=== PATIENT | female | born 1970 | race African-American/Black ===

== ENCOUNTER 2023-03-08 06:22 | Emergency (ER) | payer MEDICAID, SELFPAY ==
[2023-03-08 06:27] VITALS: BP 144/98; PULSE 84; RESP 20; TEMP 36.8; O2SAT 98
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
[2023-03-08] MEDS: KETOROLAC 30 MG/ML VIAL (*BKC) 15 MG IM (07:44)
== END 2023-03-08 08:37 | disposition home or self-care (01) ==
PROVIDERS: Emergency Provider Emergency Medicine
DX: M19.90 Unspecified osteoarthritis, unspecified site (principal); F17.210 Nicotine dependence, cigarettes, uncomplicated; Z76.0 Encounter for issue of repeat prescription
CPT/HCPCS: 96372; 99283; J1885

== ENCOUNTER 2023-03-21 11:19 | Emergency (ER) | payer MEDICAID, SELFPAY ==
--- NOTE | ~2023-03-21 | XR_ITS ---
EXAMINATION: XR hip LT min 3V w AP pelvis DATE: 03/21/2023 13:11 INDICATION: Chronic left hip pain. TECHNIQUE: An anteroposterior view of the pelvis and 3 views of left hip were obtained. COMPARISON: None. FINDINGS: Bone alignment is normal. There is moderate lumbar spondylosis. No fracture. There is mild right hip osteoarthritis. There is advanced left hip osteoarthritis including bone volume loss of fem oral head. There are loose bodies in left hip joint. IMPRESSION: 1. Advanced left hip joint osteoarthritis with loose bodies. 2. Mild right hip osteoarthritis. Reviewed, dictated and finalized at location A. ER AGENT
[2023-03-21 11:23] VITALS: BP 127/76; PULSE 78; RESP 16; TEMP 36.4; O2SAT 99
--- NOTE | 2023-03-21 12:18 | ED.GENADULT ---
HPI - General Adult General Chief complaint: Unspecified Stated complaint: left leg pain Time Seen by Provider: 03/21/23 12:09 Source: patient and family History of Present Illness HPI narrative: 53 years old female came to the ED complaining of chronic hips pain mainly left side, bone on bone, Declined surgery in the past and would like to be hospitalized for hip replacement, ran out of [place] 10 mg t.i.d. p.r.n. and block scan 7.5 mg b.i.d., patient was seen by her family physician yesterday who declined to give her any pain medication. Patient was referred to pain management physician and psychiatrist and cannot follow with them because they are far away from her home. Patient would like to have a pain shot and refill for the [place]. Related Data Allergies Allergy/AdvReac Type Severity Reaction Status Date / Time meloxicam Allergy Mild Unknown Verified 03/08/23 07:30 Review of Systems Review of Systems: All systems reviewed & are unremarkable except as noted in HPI and below PMFSH Past Medical History Medical History Peripheral neuropathic pain Psychiatric diagnosis Family History Family History Other Peripheral neuropathic pain Exam Narrative: General appearance: Well-developed, well-nourished Skin: Normal color Head: Normocephalic, nontraumatic Eyes: Clear conjunctiva ENT: Oropharynx normal, ears normal, nose normal Neck: Supple, nontender Chest and respiratory: Airway patent, no respiratory distress, no accessory muscle use Heart: Regular rate/rhythm Abdomen: Soft, nontender, no organomegaly, quiet bowel sounds Vascular: Normal peripheral pulses, normal capillary refill. Musculoskeletal: severe limited range of motion of both hips mainly on the left side, no bruises, no deformity, no rash Neurologic: Alert and oriented ?3, SHERIFF OFFICER is normal as tested, no gross motor deficit Course Vital Signs Vital signs: Vital Signs Temperature 36.4 C L 03/21/23 11:23 Pulse Rate 78 03/21/23 11:23 Respiratory Rate 16 03/21/23 11:23 Blood Pressure 127/76 03/21/23 11:23 Pulse Oximetry 99 03/21/23 11:23 Oxygen Delivery Room Air 03/21/23 11:23 Temperature 36.4 C L 03/21/23 11:23 Pulse Rate 78 03/21/23 11:23 Respiratory Rate 16 03/21/23 11:23 Blood Pressure 127/76 03/21/23 11:23 Pulse Oximetry 99 03/21/23 11:23 Oxygen Delivery Room Air 03/21/23 11:23 Medical Decision Making Vital Signs Vital Signs: Vital Signs Temperature 36.4 C L 03/21/23 11:23 Pulse Rate 78 03/21/23 11:23 Respiratory Rate 16 03/21/23 11:23 Blood Pressure 127/76 03/21/23 11:23 Pulse Oximetry 99 03/21/23 11:23 Oxygen Delivery Room Air 03/21/23 11:23 Temperature 36.4 C L 03/21/23 11:23 Pulse Rate 78 03/21/23 11:23 Respiratory Rate 16 03/21/23 11:23 Blood Pressure 127/76 03/21/23 11:23 Pulse Oximetry 99 03/21/23 11:23 Oxygen Delivery Room Air 03/21/23 11:23 Imaging Data Radiologist's impression: Impressions Hip/Pelvis X-Ray 03/21/23 13:42 IMPRESSION: 1. Advanced left hip joint osteoarthritis with loose bodies. 2. Mild right hip osteoarthritis. Critical Care Time Critical Care Time Critical Care Time: No Discharge Plan Discharge Clinical Impression: Chronic hip pain Patient Disposition: Home, Self-Care Condition: Stable Instructions: Hip Pain (ED) Additional Instructions: Return if symptoms are worsening , call your family physician for appointment, take Tylenol as as needed for aches and pain, continue home med
[2023-03-21] MEDS: ONDANSETRON HCL ODT 4 MG TABLET 8 MG PO (13:13)
[2023-03-21] MEDS: HYDROmorphone HCL INJ (*CRX) 1 MG/ML SYR IM (13:14)
== END 2023-03-21 14:16 | disposition home or self-care (01) ==
PROVIDERS: Emergency Provider Emergency Medicine
DX: M25.552 Pain in left hip (principal); M25.551 Pain in right hip; G89.29 Other chronic pain; M16.0 Bilateral primary osteoarthritis of hip
CPT/HCPCS: 73502; 96372; 99283; A9270; J1170

== ENCOUNTER 2023-04-12 08:58 | Emergency (ER) | payer MEDICAID, SELFPAY ==
--- NOTE | ~2023-04-12 | XR_ITS ---
EXAMINATION: XR hip LT 2V w AP pelvis INDICATION: Left hip pain TECHNIQUE: AP view of the pelvis and two views of the left hip are obtained. COMPARISON: 03/21/2023 FINDINGS: No acute fracture is identified. Again noted is advanced left hip osteoarthritis with bone volume loss of the left femoral head. Loose bodies are again noted in the left hip joint. The right h ip demonstrates mild osteoarthritis. IMPRESSION: 1. Advanced osteoarthritis of the left hip without acute findings or significant interval change. Reviewed, dictated and finalized at location B. 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 Advanced osteoarthritis of the left hip without acute findings or significan t interval change.
[2023-04-12 09:05] VITALS: BP 104/60; PULSE 92; RESP 20; TEMP 36.4; O2SAT 97
--- NOTE | 2023-04-12 09:52 | ED.EXTPRO ---
HPI - Extremity Problem General Chief complaint: Extremity Problem,Nontraumatic Stated complaint: L HIP PAIN Time Seen by Provider: 04/12/23 09:21 Source: patient Mode of arrival: ambulatory Limitations: no limitations History of Present Illness HPI Narrative: This is a 53-year-old female that presents to the emergency department for left hip pain ongoing over the last day. Reports yesterday stepping out of a car and twisting the leg. Reports since she has had worsening left hip pain. Reports bad osteoarthritis in the hip and she has follow-up with Orthopedics for this in the next couple of weeks. She takes meloxicam. Denies fevers, erythema, edema, decreased range of motion, or numbness Related Data Allergies Allergy/AdvReac Type Severity Reaction Status Date / Time No Known Allergies Allergy Verified 04/12/23 09:44 Review of Systems Review of Systems: CONSTITUTIONAL: Denies fever SKIN: Denies rash MUSCULOSKELETAL: Reports joint pain, and myalgia. NEUROLOGIC: Denies numbness, or weakness. All systems reviewed & are unremarkable except as noted in HPI and below PMFSH Past Medical History Medical History Peripheral neuropathic pain Psychiatric diagnosis Family History Family History Other Peripheral neuropathic pain Social History Social History (System 04/03/23 @ 09:41 by Brandin Christiansen) Alcohol intake: never Exam Narrative: GENERAL: Well-appearing, well-nourished, and in no acute distress. HEAD: Normocephalic, atraumatic. EYES: EOMI. CHEST: Clear to auscultation. No respiratory distress. No wheezes rales or rhonchi HEART: Regular rate and rhythm. No murmur heard. Normal peripheral pulses. EXTREMITIES: Normal range of motion. No edema or obvious deformity. Normal DP pulse. Normal sensation SKIN: Warm, dry, no rash. NEURO: No focal deficits. Alert and oriented x3. PSYCH: Normal mood and affect Course Course Emergency Course: Patient updated on her workup and agrees with plan of care Vital Signs Vital signs: Vital Signs Temperature 97.5 F L 04/12/23 09:05 Pulse Rate 92 04/12/23 09:05 Respiratory Rate 20 04/12/23 09:05 Blood Pressure 104/60 04/12/23 09:05 Pulse Oximetry 97 04/12/23 09:05 Oxygen Delivery Room Air 04/12/23 09:05 Temperature 97.5 F L 04/12/23 09:05 Pulse Rate 92 04/12/23 09:05 Respiratory Rate 20 04/12/23 09:05 Blood Pressure 104/60 04/12/23 09:05 Pulse Oximetry 97 04/12/23 09:05 Oxygen Delivery Room Air 04/12/23 09:05 MDM - Extremity (Nontraumatic) MDM Narrative Medical decision making narrative: Patient presents emergency department for left hip pain after a twisting injury yesterday. Patient is neurovascularly intact. Left hip x-ray shows advanced osteoarthritis without acute findings. Patient updated on her workup. Instructed to continue her meloxicam, Tylenol as needed. Will be given muscle relaxer if needed for pain. She is to follow up with her orthopedic doctor at her scheduled appointment. She was given warnings to return to the ER Differential Diagnosis Differential diagnosis: Likely other (osteoarthritis, muscle spasm, muscle strain) Imaging Data Radiologist's impression: ITS Impressions Hip/Pelvis X-Ray 04/12/23 10:30 IMPRESSION: 1. Advanced osteoarthritis of the left hip without acute findings or significant interval change. Critical Care Time Critical Care Time Critical Care Time: No Discharge Plan Discharge Clinical Impression: Left hip pain Patient Disposition: Home, Self-Care Condition: Stable Instructions: Hip Pain (ED) Additional Instructions: Return to the ER if you experience weakness, numbness, bowel/bladder incontinence, or any other symptoms that are concerning to you Rest, use ice/heat, take Meloxicam or Tylenol as needed for pain as well as muscle r
[2023-04-12] MEDS: ACETAMINOPHEN 500 MG TABLET 1000 MG PO (10:09)
[2023-04-12] MEDS: diazePAM INJ (*CRX) 10 MG/2 ML SYRINGE 5 MG IM (10:09)
[2023-04-12 10:51] VITALS: BP 116/74; PULSE 76; RESP 18; O2SAT 99
== END 2023-04-12 11:07 | disposition home or self-care (01) ==
PROVIDERS: Emergency Provider Physician Assistant
DX: M25.552 Pain in left hip (principal); M16.12 Unilateral primary osteoarthritis, left hip
CPT/HCPCS: 73502; 96372; 99283; A9270; J3360

== ENCOUNTER 2023-06-15 11:28 | Outpatient (CLI) | payer OTHER, SELFPAY ==
--- NOTE | ~2023-06-15 | XR_ITS ---
Clinical Indication: Chest pain PA and lateral views of the chest: Comparison: None Findings: The lungs are clear, without evidence of focal consolidation or pleural effusion. Cardiome diastinal silhouette is within normal limits. Bones and soft tissues are unremarkable. Impression: Normal chest. Reviewed, dictated and finalized at location . Impression: Normal chest.
--- NOTE | 2023-06-15 12:12 | ECG_ITS ---
SEE SCANNED COPY FOR CONFIRMED REPORT MTDD
== END 2023-06-15 11:29 | disposition home or self-care (01) ==
LOC: ANHIMG 11:36
PROVIDERS: PCP Emergency Medicine; Visit Provider Emergency Medicine
DX: R00.2 Palpitations (principal); R07.9 Chest pain, unspecified
CPT/HCPCS: 71046; 93005

== ENCOUNTER 2023-08-03 15:49 | Outpatient (CLI) | payer OTHER, SELFPAY ==
--- NOTE | ~2023-08-03 | CT_ITS ---
EXAMINATION: CT hip LT wo con DATE: 08/03/2023 16:15 INDICATION: Unilateral primary osteoarthritis of the left hip TECHNIQUE: High resolution computed tomography (CT) of the left hip was performed without intravenous contrast. Additional sagittal and coronal reconstructions were performed. Automated exposure control and iterative reconstruction technique were employed. The dose-length product was 440.35 mGy-cm. COMPARISON: None FINDINGS: Severe osteoarthritis at the left hip severe joint space narrowing and remodeling of the cephalad asp ect of the femoral head and acetabulum. There is extensive subarticular sclerosis and cystic change a long both sides of the joint space. The remodeling results in mild cephalad and lateral migration of the femoral head within the enlarged acetabulum. Likely reactive small left hip joint effusion. No fr acture. Moderate osteoarthritis of the left sacroiliac joint. Visualized portion of the bladder, uter us and left adnexa are unremarkable. There are few sigmoid diverticula without adjacent inflammatory stranding to suggest diverticulitis. No pathologically enlarged left pelvic or inguinal lymphadenopat hy. IMPRESSION: 1. Severe left hip osteoarthritis. Reviewed, dictated and finalized at location A.
== END 2023-08-03 15:50 | disposition home or self-care (01) ==
LOC: ANHIMG 15:49
PROVIDERS: PCP Emergency Medicine; Visit Provider Orthopaedic Surgery
DX: M16.12 Unilateral primary osteoarthritis, left hip (principal)
CPT/HCPCS: 73700

== ENCOUNTER 2023-08-14 10:37 | Outpatient (CLI) | payer OTHER, SELFPAY ==
[2023-08-14 12:01] LABS: Appearance Urine Clear (Clear); Bacteria Urine 1+ /hpf; Bilirubin Urine Negative (Negative); Blood Urine 1+ (Negative); Color Urine Yellow (Yellow); Glucose Urine UA Negative (Negative); Ketones Urine Negative (Negative); Leukocyte Esterase Ur Negative LEU/UL (Negative); Nitrate Urine Negative (Negative); Non Pathogenic Casts 0-2; Protein Urine Trace mg/dL (Negative); RBC Urine 21-50 /hpf (0-2); Specific Grav Ur 1.019 (1.001-1.035); Squamous Epithelial Cell Urine Few /hpf (Few)
[2023-08-14 12:05] LABS: Urine Cotinine NEGATIVE
[2023-08-14 12:06] LABS: Add Urine Microscopic? YES
== END 2023-08-14 10:38 | disposition home or self-care (01) ==
LOC: ANHLAB 10:40
PROVIDERS: Nurse Practitioner Family; PCP Emergency Medicine; Visit Provider Orthopaedic Surgery
DX: R53.83 Other fatigue (principal); R73.03 Prediabetes; Z01.818 Encounter for other preprocedural examination; F17.200 Nicotine dependence, unspecified, uncomplicated
CPT/HCPCS: 80307; 81001; 87086; 87088

== ENCOUNTER 2023-08-22 08:00 | Outpatient (CLI) | payer OTHER, SELFPAY ==
[2023-08-22 13:52] LABS: Basophils Percent Auto 0.2 % (0.2-1.2); Eosinophils Absolute Auto 0.2 K/mm3 (0-0.3); Eosinophils Percent Auto 3.5 % (0-4.4); Hematocrit 33.9 % (37.0-47.0); Hemoglobin 10.8 g/dL (12.0-15.0); Immature Granulocyte Absolute 0.01 K/mm3 (0.00-0.031); Immature Granulocyte Percent A 0.2 % (0-0.5); Lymphocytes Absolute Auto 1.67 K/mm3 (0.9-3.2); Lymphocytes Percent Auto 33.9 % (18.3-44.2); Mean Corpuscular HGB Conc 31.9 g/dl (32-36); Mean Corpuscular Hemoglobin 28.3 pg (26-34); Mean Platelet Volume 9.9 fl (7.4-10.4); Monocytes Absolute Auto 0.5 K/mm3 (0.1-0.6); Neutrophils Absolute Auto 2.6 K/mm3 (1.3-6.7); Neutrophils Percent Auto 52.2 % (45.5-73.1); Platelet Count Result 242 k/mm3 (150-375); Red Blood Count 3.81 M/mm3 (4.2-5.4); Red Cell Distribution Width 13.8 % (11.5-14.5); White Blood Count 4.9 K/mm3 (4.5-10.0)
[2023-08-22 14:02] LABS: Prothrombin Time 13.7 Seconds (11.1-14.7)
[2023-08-22 14:04] LABS: Partial Thromboplastin Time 38.7 Seconds (22.3-36.8)
[2023-08-22 14:11] LABS: Albumin Level 3.9 g/dL (3.5-5.1); Anion Gap 6 mmol/L (4-12); Blood Urea Nitrogen 14 mg/dL (7-17); Carbon Dioxide 29 mmol/L (22-30); Chloride 107 mmol/L (98-107); Estimated Glomerular Filt Rate > 60; Glucose 105 mg/dL (65-110); Potassium 3.9 mmol/L (3.4-5.0); Sodium 142 mmol/L (137-145)
[2023-08-22 15:04] LABS: Hemoglobin A1C 5.2 % (<5.7)
[2023-08-22 15:08] LABS: MRSA (PCR) NOT DETECTED (NOT DETECTE)
== END 2023-08-22 08:01 | disposition home or self-care (01) ==
PROVIDERS: PCP Emergency Medicine; Visit Provider Orthopaedic Surgery
DX: M16.12 Unilateral primary osteoarthritis, left hip (principal); Z01.818 Encounter for other preprocedural examination
CPT/HCPCS: 36415; 80048; 82040; 83036; 85025; 85610; 85730; 87641

== ENCOUNTER 2023-09-08 08:39 | Observation (INO) | payer OTHER, SELFPAY ==
--- NOTE | 2023-08-22 13:02 | PC.NURSE ---
Report to the Outpatient Waiting Room, entrance under the green pavilion located off [facility], at time __6:00AM on date __09/06/23 . Planned Procedure Time: __7:30AM . Time changes happen often and if your time is changed the preop area will call you the afternoon before. - You and your visitor will be asked to self-screen and do not enter if you have any COVID symptoms. - A mask is optional within the hospital at this time. Patients may have clear liquids (water, carbonated beverages, clear teas, apple juice) until 3 hours prior to surgery with a maximum of 20 ounces. - No food from midnight until time of surgery. Take the following medications with a SIP of water the morning of surgery: ___DULOXETINE, LYRICA, DEPAKOTE, PROPRANOLOL. MAY USE ALBUTEROL INHALER NEEDED FOR WHEEZING OR SHORTNESS. MAY TAKE OXYCODONE FOR PAIN NEEDED DO NOT STOP ANY OF YOUR OTHER PRESCRIPTION MEDICATIONS PRIOR TO SURGERY ?EXCEPT THE FOLLOWING Medications to discontinue per physician ___HOLD MELOXICAM (NSAIDS) AND ASPIRIN 7 DAYS PRE-OP PER DR BLUE- LAST DOSE-08/29/23. HOLD ALL VITAMINS/SUPPLEMENTS 3 DAYS PRE-OP PER ANESTHESIA- LAST DOSE 09/02/23 Please no make-up, nail japanese, hairspray, perfume, deodorant, or body powder the day of surgery. No jewelry (including any body piercings) or valuables the day of surgery, leave them at home. Please take a shower or bath the night before, or the morning of, surgery with an antibacterial soap. Wear comfortable, loose fitting clothing. - Jewelry must be removed prior to entering the operating room. Rings and piercings that are not removed may be cut off. - The hospital will not accept responsibility for valuables. - Please leave all valuables, including medications, at home the day of surgery. If you are going home after surgery, a licensed chassis driver must drive you home. - NO public transportation without another adult if you receive anesthesia. - We recommend that an adult stay with you for 24 hours following discharge. - We also recommend that you do not drive, make important decision, drink alcoholic beverages, or take any drugs that were not prescribed by your health care provider for at least 24 hours after your discharge time. Follow any additional instructions given to you from your surgeon. HIBICLENS SHOWER DAILY FOR 7 DAYS PRIOR TO SURGERY If you or anyone in your household have experienced Covid symptoms in the past week, please notify your surgeon or the nurse liaison at the phone number below for possible testing. Telephone instructions given to ___PATIENT and asked if any additional questions and then verbalized understanding. Patient advised to call surgeon office or pre surgery nurse liaison [phone] if any additional questions.
[2023-08-22 13:28] VITALS: BP 103/60; PULSE 70; RESP 12; TEMP 36.3; O2SAT 100; BMI 35.0
[2023-09-06] VITALS (17 sets, daily range): BP systolic 92–130; BP diastolic 42–92; PULSE 77–100; RESP 12–26; TEMP 36.1–37; O2SAT 97–100
[2023-09-06 06:16] LABS: Glucose Point of Care 105 mg/dl (65-105)
[2023-09-06] MEDS: ACETAMINOPHEN 500 MG TABLET 1000 MG PO (06:59)
[2023-09-06] MEDS: LACTATED RINGERS 1,000 ML 30 ML IV CONT ×2 (06:59→10:40)
--- NOTE | 2023-09-06 06:59 | WPDANESEPPF ---
Anes - Initial Pre Proc Eval Procedure: Operation Date: 09/06/23 07:30 Proposed Procedures p Left Total Hip Arthroplasty - Sky Ceballos MD Date/Time: 09/06/23 06:59 Surgeon: Sky Ceballos MD Pre Op Diagnosis: left hip djd Patient Data Age: 53 Gender: F Height: 1.65 m Weight: 91.7 kg Last Vital Signs Temp 98.2 F 09/06/23 06:44 Pulse 90 09/06/23 06:44 Resp 12 08/22/23 13:28 BP 93/62 L 09/06/23 06:44 Pulse Ox 100 09/06/23 06:44 O2 Del Method Room Air 09/06/23 06:44 Allergies Allergy/AdvReac Type Severity Reaction Status Date / Time No Known Allergies Allergy Verified 09/01/23 10:27 Home Medications Medication Instructions Recorded Confirmed Type divalproex 500 mg tablet,delayed 500 mg PO .COMPLEX #270 tabs 05/02/23 09/01/23 Rx release hydroxychloroquine 200 mg tablet 200 mg PO DAILY #90 tabs 05/02/23 09/01/23 Rx omeprazole 40 mg capsule,delayed 40 mg PO DAILY #90 caps 05/02/23 09/01/23 Rx release propranolol 20 mg tablet 20 mg PO DAILY #90 tabs 05/02/23 09/01/23 Rx valbenazine 40 mg capsule 40 mg PO DAILY #90 caps 05/02/23 09/01/23 Rx (Ingrezza) albuterol sulfate 90 mcg/actuation See Rx Instructions .Route 07/03/23 09/01/23 Rx aerosol inhaler .COMPLEX #8.5 ea meloxicam 7.5 mg tablet See Rx Instructions .Route 07/13/23 09/01/23 Rx .COMPLEX #60 tabs rosuvastatin 10 mg tablet (Crestor) 10 mg PO DAILY #90 tabs 07/19/23 09/01/23 Rx cyclobenzaprine 10 mg tablet See Rx Instructions .Route 08/04/23 09/01/23 Rx .COMPLEX #90 tabs oxycodone-acetaminophen 5 mg-325 1 tablet PO Q6H PRN pain #60 tabs 08/17/23 09/01/23 Rx mg tablet (Percocet) aspirin 81 mg tablet,delayed 81 mg PO DAILY 08/22/23 09/01/23 History release chlorhexidine gluconate 4 % 1 applic topical ONCE #237 mL 08/22/23 09/01/23 Rx topical liquid (Hibiclens) diclofenac sodium 1 % topical gel 4 g topical QID PRN Pain 08/22/23 09/01/23 History (Voltaren Arthritis Pain) duloxetine 30 mg capsule,delayed 30 mg PO QAM 08/22/23 09/01/23 History release duloxetine 60 mg capsule,delayed 60 mg PO QAM 08/22/23 09/01/23 History release hydroxyzine pamoate 25 mg capsule 50 mg PO QPM 08/22/23 09/01/23 History losartan 100 1 tablet PO QAM 08/22/23 09/01/23 History mg-hydrochlorothiazide 12.5 mg tablet metformin 1,000 mg tablet 1,000 mg PO QAM 08/22/23 09/01/23 History multivitamin 1 tablet PO DAILY 08/22/23 09/01/23 History pregabalin 100 mg capsule 100 mg PO BID 08/22/23 09/01/23 History topiramate 200 mg capsule,extended 200 mg PO HS 08/22/23 09/01/23 History release 24 hr triamcinolone acetonide 0.1 % 1 applic topical BID 08/22/23 09/01/23 History topical ointment liraglutide 0.6 mg/0.1 mL (18 mg/3 See Rx Instructions .Route 08/28/23 09/01/23 Rx mL) subcutaneous pen injector .COMPLEX #9 mL (Victoza 3-French) Laboratory Tests 09/06/23 06:13 POC Capillary Glucose 105 mg/dl (65-105) Patient hx anesthesia problems: none Family hx anesthesia problems: none Results Review: All pre-operative results and documents have been reviewed as part of the pre-operative evaluation. [facility] Past Medical History Medical History Anxiety Bipolar disorder CTS (carpal tunnel syndrome) Fibromyalgia Peripheral neuropathic pain Psychiatric diagnosis PTSD (post-traumatic stress disorder) Smoking Tardive dyskinesia Family History Family History Unknown Hypertension Depression Heart disease Diabetes mellitus Cerebrovascular accident Neuropathy Arthritis Other Peripheral neuropathic pain Social History Social History Smoking packs per day: 0.25 Smoking cigarettes per day: 5.0 Years smoked: 39 Smoking pack-years: 9.75 Smoking status: Former smoker Tobacco type: ci
--- NOTE | 2023-09-06 07:15 | WPDHPUPDATE1 ---
History and Physical Update Update Date/Time: 09/06/23 07:15 History and Physical has been reviewed, including an updated exam of the patient. There are NO changes in the patient's condition. Risks, benefits, and alternatives have been discussed and questions answered. Patient agrees to proceed with procedure.
[2023-09-06] MEDS: TRANEXAMIC ACID 1,000MG/ISO100 1,000 MG/100 ML BAG 200 MG IVPB (07:22)
[2023-09-06] MEDS: ceFAZolin 2 GM/D5W 50 ML 2 GM/50 ML BAG IVPB ×2 (07:51→17:21)
[2023-09-06] MEDS: SODIUM CHLORIDE 0.9% IV 37.7 ML, MORPHINE SULFATE INJ (*CRX) 2 MG, ROPivacaine HCL 1% 2... INFILTRATE (08:20)
[2023-09-06] MEDS: TRANEXAMIC ACID 1,000 MG/10 ML AMPUL 1000 MG IV PUSH (09:39)
--- NOTE | 2023-09-06 10:44 | W.PM.PROC2 ---
Procedure Note - Detailed Date of Procedure 09/06/23 Pre-op Diagnosis left hip djd Post-op Diagnosis Same Procedure Performed L ANDREW Surgeon Sky Ceballos MD Anesthesia General Description of Procedure THE PATIENT WAS TAKEN TO THE OPERATING ROOM IN STABLE CONDITION AND WAS PLACED IN THE LATERAL DECUBITUS AND THE LEFT LOWER EXTREMITY WAS PREPPED AND DRAPED IN THE STERILE FASHION. INCISION WAS MADE IN THE POSTERIOR LATERAL SIDE OF THE HIP, DOWN TO THE FASCIA LAYER. THE FASCIA WAS INCISED. THE HIP WAS EXPOSED. THE SHORT EXTERNAL ROTATORS WERE EXPOSED. THE SCIATIC NERVE WAS IDENTIFIED. INCISION WAS MADE THROUGH THE SHORT EXTERNAL ROTATORS AND THE CAPSULE OF THE HIP JOINT. THE HIP WAS DISLOCATED. AN OSTEOTOMY WAS MADE TO THE FEMORAL NECK ABOUT 1 CM PROXIMAL TO THE LESSER TROCHANTER. THE ACETABULUM WAS EXPOSED. THERE WAS SEVERE DJD SEEN. BEGINNING WITH A 44 REAMER THE ACETABULUM WAS REAMED TO 51 MM. A 51 MM TRIAL WAS PLACED IN 35 DEG OF ABDUCTION AND ANTEVERSION WAS IN ALIGNMENT WITH THE TRANS ACETABULAR LIGAMENT. THE FIT WAS EXCELLENT. THE TRIAL WAS REMOVED. A 52 MM BIOMET G7 COMPONENT WAS THEN TAPPED IN TO PLACE IN 35 DEG OF ABDUCTION AND ANTEVERSION IN ALIGNMENT WITH THE TRANSVERSE ACETABULAR LIGAMENT. THE FIT WAS EXCELLENT. 1 SCREW WAS PLACED WITH A VERY GOOD BITE. THE ACETABULAR LINER WAS PLACED AND CHECKED FOR STABILITY. NEXT THE FEMUR WAS PREPARED WITH INITIAL CANAL FINDER THEN SEQUENTIAL BROACHING WITH A TAPERLOC HIP SYSTEM, UNTIL A 7 BROACH FIT WELL IN 15 OF ANTEVERSION. A -3 STANDARD OFFSET NECK WITH 36 MM HEAD TRIAL WAS PLACED. THE SHUCK TEST WAS EXCELLENT AND THE STABILITY IN FLEXION AND ROTATION WAS EXCELLENT. LEG LENGTHS WERE GROSSLY EQUAL. TRIALS WERE REMOVED. A BIOMET TAPERLOC 7 STEM WAS PLACED WITH A STANDARD OFFSET NECK. THE FIT WAS EXCELLENT IN 15 DEG OF ANTEVERSION. A -3 CERAMIC 36 MM FEMORAL CERAMIC HEAD WAS PLACED. THE HIP WAS TRIALED AND THE STABILITY WAS EXCELLENT WERE THE LEG LENGTHS AND THE SHUCK TEST. THE WOUND WAS IRRIGATED WITH STERILE BETADINE AND WATER FOR 3 MIN. THEN WASHED AGAIN. THE CAPSULE AND THE EXTERNAL ROTATORS WERE APPROXIMATED WITH NUMBER 1 VICRYL. THE FASCIA WITH No 2 QUIL AND THE SUB CUTANEOUS LAYER WITH 2-0 ABSORBABLE SUTURE WITH A RUNNING 3-0 SUBCUTICULAR LAYER WELL. DERMABOND WAS PLACED AND STERILE DRESSING WAS APPLIED. PATIENT WAS PLACED BACK ON TO THE SUPINE POSITION AND WAS EXTUBATED Estimated Blood Loss 200 Complications No immediate complications Condition Stable Disposition PACU
[2023-09-06] MEDS: fentaNYL CITRATE INJ (*CRX) 100 MCG/2 ML VIAL 25 MCG IV PUSH ×8 (10:46→11:28)
[2023-09-06 10:59] LABS: Glucose Point of Care 150 mg/dl (65-105)
[2023-09-06] MEDS: HYDROmorphone HCL INJ (*CRX) 1 MG/ML SYR 0.25 MG IV PUSH ×8 (11:40→12:37)
--- NOTE | 2023-09-06 13:26 | ADMGEN ---
This patient, Dipika Tran, was admitted to [facility] Surg Room 327-01. Patient/family oriented to hospital policies and general routines including ID bracelet, bed and alarms, visiting hours, pain management, procedures, bathroom and other care routines, personal items, smoking policy, room service/diet, and visiting hours. Information on how to activate the Rapid Response Team has been discussed. Patient/Family are encouraged to report perceived risks to care and to ask questions if they do not understand what they are told or what they should do.
[2023-09-06] MEDS: KETOROLAC 15 MG/ML VIAL (*BKC) IV PUSH ×2 (14:49→17:21)
[2023-09-06] MEDS: oxyCODONE/ACETAMINOPHEN (*CRX) 10-325 MG TABLET 1 TAB PO (14:49)
[2023-09-06] MEDS: PROPRANOLOL HCL 20 MG TABLET PO (14:52)
[2023-09-06] MEDS: ASPIRIN 325 MG ENTERIC TABLET PO ×2 (14:52→19:51)
[2023-09-06] MEDS: PREGABALIN (*CRX) 50 MG CAPSULE 100 MG PO (14:52)
[2023-09-06] MEDS: SENNA/DOCUSATE SODIUM TABLET 2 TAB PO ×2 (14:52→17:22)
[2023-09-06] MEDS: PANTOPRAZOLE 40 MG TABLET PO ×2 (14:53→19:51)
[2023-09-06] MEDS: ROSUVASTATIN 10 MG TABLET PO (14:53)
--- NOTE | 2023-09-06 16:20 | PCPTNOTE ---
On 09/06/23, the student, [Gena Martínez], provided care and completed [facility] documentation on this patient. I have reviewed the student's documentation and agree with the findings.
[2023-09-06 16:39] LABS: Glucose Point of Care 101 mg/dl (65-105)
--- NOTE | 2023-09-06 17:05 | PHAR ---
pt's home med ingrezza (valbenazine) 40 mg capsules verified by pharmacy color: purple, white opaque Imprint: [id number]
[2023-09-06] MEDS: HYDROmorphone HCL INJ (*CRX) 1 MG/ML SYR IV PUSH (19:50)
[2023-09-06] MEDS: TOPIRAMATE 100 MG TABLET PO ×2 (19:52→20:08)
[2023-09-06] MEDS: DIVALPROEX SODIUM DR 250 MG TABEC 1000 MG PO (19:52)
[2023-09-06] MEDS: SODIUM CHLORIDE 0.9% IV 1,000 ML 125 ML IV CONT (20:17)
[2023-09-06 21:31] LABS: Glucose Point of Care 66 mg/dl (65-105)
[2023-09-06 22:47] LABS: Glucose Point of Care 89 mg/dl (65-105)
[2023-09-07] MEDS: ceFAZolin 2 GM/D5W 50 ML 2 GM/50 ML BAG IVPB ×2 (00:06→08:25)
[2023-09-07] MEDS: KETOROLAC 15 MG/ML VIAL (*BKC) IV PUSH (00:07)
[2023-09-07] MEDS: HYDROmorphone HCL INJ (*CRX) 1 MG/ML SYR IV PUSH ×4 (02:05→14:50)
[2023-09-07 04:10] VITALS: BP 117/64; PULSE 98; RESP 18; TEMP 37.2; O2SAT 98
[2023-09-07] MEDS: diazePAM (*CRX) 5 MG TABLET PO ×2 (06:08→20:19)
[2023-09-07] MEDS: SODIUM CHLORIDE 0.9% IV 1,000 ML 125 ML IV CONT (06:10)
[2023-09-07] MEDS: oxyCODONE/ACETAMINOPHEN (*CRX) 5-325 MG TABLET 1 TABLET PO ×2 (06:11→20:19)
[2023-09-07 06:23] LABS: Basophils Percent Auto 0.5 % (0.2-1.2); Eosinophils Absolute Auto 0.1 K/mm3 (0-0.3); Eosinophils Percent Auto 0.9 % (0-4.4); Hematocrit 29.1 % (37.0-47.0); Hemoglobin 8.8 g/dL (12.0-15.0); Immature Granulocyte Absolute 0.02 K/mm3 (0.00-0.031); Immature Granulocyte Percent A 0.3 % (0-0.5); Lymphocytes Absolute Auto 1.16 K/mm3 (0.9-3.2); Mean Corpuscular HGB Conc 30.2 g/dl (32-36); Mean Corpuscular Hemoglobin 27.8 pg (26-34); Mean Corpuscular Volume 92.1 fl (80-100); Mean Platelet Volume 10.9 fl (7.4-10.4); Monocytes Absolute Auto 0.6 K/mm3 (0.1-0.6); Monocytes Percent Auto 9.6 % (2.6-8.5); Neutrophils Absolute Auto 4.5 K/mm3 (1.3-6.7); Neutrophils Percent Auto 70.7 % (45.5-73.1); Platelet Count Result 236 k/mm3 (150-375); Red Blood Count 3.16 M/mm3 (4.2-5.4); Red Cell Distribution Width 14.4 % (11.5-14.5); White Blood Count 6.4 K/mm3 (4.5-10.0)
[2023-09-07 06:36] LABS: Anion Gap 10 mmol/L (4-12); Blood Urea Nitrogen 22 mg/dL (7-17); Calcium 8.5 mg/dL (8.4-10.2); Carbon Dioxide 23 mmol/L (22-30); Chloride 103 mmol/L (98-107); Estimated CRCL calculation 63 ml/min; Estimated Glomerular Filt Rate > 60; Glucose 135 mg/dL (65-110); Potassium 3.6 mmol/L (3.4-5.0); Sodium 136 mmol/L (137-145)
[2023-09-07 07:52] LABS: Glucose Point of Care 124 mg/dl (65-105)
[2023-09-07 08:00] VITALS: BP 113/58; PULSE 120; RESP 18; TEMP 36.6; O2SAT 100
[2023-09-07] MEDS: metFORMIN HCL 500 MG TABLET 1000 MG PO (08:25)
[2023-09-07] MEDS: ROSUVASTATIN 10 MG TABLET PO (08:26)
[2023-09-07] MEDS: SENNA/DOCUSATE SODIUM TABLET 2 TAB PO ×2 (08:26→17:12)
[2023-09-07] MEDS: ASPIRIN 325 MG ENTERIC TABLET PO ×2 (08:26→20:09)
[2023-09-07] MEDS: PREGABALIN (*CRX) 50 MG CAPSULE 100 MG PO ×2 (08:26→17:12)
[2023-09-07] MEDS: hydroCHLOROthiazide 12.5 MG CAPSULE PO (08:26)
[2023-09-07 08:27] VITALS: PULSE 96
[2023-09-07] MEDS: polyethylene glycoL 3350 17 GM POWD.PACK PO (08:27)
[2023-09-07] MEDS: PANTOPRAZOLE 40 MG TABLET PO ×2 (08:27→20:09)
[2023-09-07] MEDS: PROPRANOLOL HCL 20 MG TABLET PO (08:27)
[2023-09-07] MEDS: DIVALPROEX SODIUM DR 250 MG TABEC 500 MG PO (08:27)
[2023-09-07] MEDS: LOSARTAN POTASSIUM 100 MG TABLET PO (08:30)
[2023-09-07] MEDS: oxyCODONE/ACETAMINOPHEN (*CRX) 10-325 MG TABLET 1 TAB PO ×2 (09:58→17:13)
[2023-09-07 12:00] VITALS: BP 99/58; PULSE 115; RESP 18; TEMP 37.2; O2SAT 96
--- NOTE | 2023-09-07 12:07 | PM.PNORT ---
Progress Note: A&P Assessment and Plan (1) S/P total hip arthroplasty: Qualifiers: Laterality: left Qualified Code(s): Z96.642 - Presence of left artificial hip joint Code(s): Z96.649 - Presence of unspecified artificial hip joint Status: Acute Assessment and Plan: POD #1 : Left ANDREW Continue PT/OT. WBAT. Walker. HIGH FALL RISK. Continue pain control. Ice Hip. Protect skin. DVT prophylaxis with Aspirin. SCDs. Incentive Spirometry Use reviewed. Monitor Dressing. Change prior to discharge. Bowel Regimen. Dispo: Home with Home Health pending progress with PT/OT Plan Reviewed history, exam, radiographs and current labs with attending MD and covering surgeon, Dr. Ceballos, who agrees with current plan as indicated above. No further recommendations from Dr. Ceballos at this time. Time Spent With Patient Time with patient: less than 15 minutes Subjective Subjective Date/Time Seen: 09/07/23 12:07 Post Op day: 1 Interval history: POD #1: Left ANDREW Patient doing well. Pain well controlled. No new concerns. Hopeful for d/c home today. Review of Systems Constitutional: Constitutional: Denies chills, Denies fatigue, Denies fever(s), Denies night sweats and Denies weakness Cardiovascular: Cardiovascular: Denies chest pain, Denies lightheadedness, Denies palpitations and Denies dyspnea Respiratory: Respiratory: Denies cough, Denies dyspnea and Denies wheezing Gastrointestinal: Gastrointestinal: Denies abdominal pain, Denies diarrhea, Denies nausea and Denies vomiting Musculoskeletal: Musculoskeletal: Reports arthralgias (left hip ), Reports joint swelling (left hip ) and Denies numbness Neurologic: Denies numbness and Denies weakness Endocrine: Endocrine: Denies fatigue and Denies palpitations Allergic/Immunologic: Allergic/Immunologic: Denies wheezing Exam Const: General: comfortable and no acute distress Orientation/consciousness: patient oriented x3 Limitations: no limitations Resp: Effort & Inspection: normal respiratory effort Cardio: Rate: regular rate Rhythm: regular rhythm GI: Inspection: non-distended Skin: General skin exam: normal color and wounds noted (incision left hip C/D/I ) Wounds: wounds noted (incision left hip C/D/I ) Neuro: General: patient oriented x3 Extrem: Left lower extremity: hip/thigh Details: tenderness Location: of the hip Location: laterally and anteriorly, swelling (thigh soft ) Location: of the hip (lateral. ), abnormal ROM (limitations with internal/external rotation and flexion/extension due to recent surgical intervention ) and other (incision lateral hip c/d/i. ), knee Details: normal to inspection and normal ROM; no tenderness and no swelling, lower leg (Negative Guy's Sign ) Details: no edema, ankle (+ankle dorsiflexion/plantarflexion ) Details: normal to inspection, no edema and normal ROM; no tenderness, no swelling and no warmth and foot Details: normal capillary refill, toes with normal ROM, vascular exam Details: dorsalis pedis pulse present and motor-sensory exam light-touch normal in all toes; no tenderness, no ecchymosis and no crepitus Psych: Mental Status: mental status grossly normal Affect: normal affect Objective Data Vital Signs Vital Signs: Vital Signs - 24 hr 09/06/23 12:10 09/06/23 12:20 09/06/23 12:35 Temperature 36.3 C L Pulse Rate 90 93 86 Respiratory Rate 16 16 12 Blood Pressure 109/69 109/69 121/61 Pulse Oximetry 99 100 100 Oxygen Delivery Room Air Room Air Room Air 09/06/23 12:50 09/06/23 14:09 09/06/23 14:52 Temperature Pulse Rate 100 100 Respiratory Rate 26 H Blood Pressure 106/69 Pulse Oximetry 100 Oxygen Delivery Room Air Room Air 09/06/23 13:20 09/06/23 13:35 09/06/23 14:05 Temperature 36.2 C L 36.2 C L 36.1 C L Pulse Rate 94 86 88 Respiratory Rate 18 18 16 Blood Pressure 106/51 L 121/92 H 113/42 L Pulse Oximetry 98 100 99 Oxygen Delivery 09/06/23 15:05 09/06/23
[2023-09-07] MEDS: DEXTROSE 50% 25 GM/50 ML SYRINGE IV PUSH (12:20)
[2023-09-07 12:21] LABS: Glucose Point of Care 50 mg/dl (65-105)
[2023-09-07 12:21] LABS: Glucose Point of Care 56 mg/dl (65-105)
--- NOTE | 2023-09-07 12:22 | PM.DS ---
DS: Admitting Diagnosis Discharge Date 09/08/2023 Admitting Diagnosis Left Hip DJD DS: Discharge Diagnosis Discharge Diagnosis (1) S/P total hip arthroplasty: Qualifiers: Laterality: left Qualified Code(s): Z96.642 - Presence of left artificial hip joint Code(s): Z96.649 - Presence of unspecified artificial hip joint Status: Acute Assessment and Plan: POD #2: Left ANDREW Continue PT/OT. WBAT. Walker. HIGH FALL RISK. Continue pain control. Ice Hip. Protect skin. DVT prophylaxis with Aspirin. SCDs. Incentive Spirometry Use reviewed. Monitor Dressing. Change prior to discharge. Bowel Regimen. Dispo: Home with Home Health pending progress with PT/OT Plan DS: Summary Hospital Course Reason for hospitalization: Left ANDREW Hospital Course: 53 year old female admitted s/p Left ANDREW for postoperative medical management, pain control and mobilization with PT/OT. Patient progressed well with PT/OT. Low blood glucose levels and hypotension postoperatively. Now stable. H/H Stable. The patient has been cleared to be discharged home with home health at this time. All discharge care instructions reviewed at depth. New medications reviewed. Follow up planned for 3 weeks in the outpatient orthopedic clinic with Dr. Ceballos. Dr. Ceballos in agreement with safe discharge at this time. Status at Discharge Functional status at discharge: uses cane/walker Overall status at discharge: patient is progressing back to baseline Time Spent with Patient Time attestation: Total time spent providing and/or coordinating discharge services: Exam Const: General: comfortable and no acute distress Orientation/consciousness: patient oriented x3 Limitations: no limitations Resp: Effort & Inspection: normal respiratory effort Cardio: Rate: regular rate Rhythm: regular rhythm GI: Inspection: non-distended Skin: General skin exam: normal color and wounds noted (incision left hip C/D/I ) Wounds: wounds noted (incision left hip C/D/I ) Neuro: General: patient oriented x3 Extrem: Left lower extremity: hip/thigh Details: tenderness Location: of the hip Location: laterally and anteriorly, swelling (thigh soft ) Location: of the hip (lateral. ), abnormal ROM (limitations with internal/external rotation and flexion/extension due to recent surgical intervention ) and other (incision lateral hip c/d/i. ), knee Details: normal to inspection and normal ROM; no tenderness and no swelling, lower leg (Negative Guy's Sign ) Details: no edema, ankle (+ankle dorsiflexion/plantarflexion ) Details: normal to inspection, no edema and normal ROM; no tenderness, no swelling and no warmth and foot Details: normal capillary refill, toes with normal ROM, vascular exam Details: dorsalis pedis pulse present and motor-sensory exam light-touch normal in all toes; no tenderness, no ecchymosis and no crepitus Psych: Mental Status: mental status grossly normal Affect: normal affect DS: Data Data Completed and Pending Labs on day of discharge: Labs from last 24 hours 09/07/23 09/07/23 09/07/23 12:16 11:52 07:45 WBC RBC Hgb Hct MCV MCH MCHC RDW Plt Count MPV Immature Gran % (Auto) Neut % (Auto) Lymph % (Auto) [place] % (Auto) Eos % (Auto) Baso % (Auto) Lymph # (Auto) [place] # (Auto) Eos # (Auto) Baso # (Auto) Abs Immat Gran (auto) Absolute Neuts (auto) Absolute Nucleated RBC Nucleated RBC % Sodium Potassium Chloride Carbon Dioxide Anion Gap BUN Creatinine Estim Creat Clear Calc Estimated GFR Glucose POC Capillary Glucose 56 L* 50 L* 124 H Calcium 09/07/23 09/06/23 09/06/23 05:51 22:44 20:21 WBC 6.4 RBC 3.16 L Hgb 8.8 L Hct 29.1 L MCV 92.1 MCH 27.8 MCHC 30.2 L RDW 14.4 Plt Count 236 MPV 10.9 H Immature Gran % (Auto) 0.3 Neut % (Auto) 70.7 Lymph % (Auto) 18.0 L
[2023-09-07 12:48] LABS: Glucose Point of Care 80 mg/dl (65-105)
[2023-09-07 13:46] LABS: Glucose Point of Care 95 mg/dl (65-105)
[2023-09-07 16:00] VITALS: BP 133/80; PULSE 118; RESP 22; TEMP 37.1; O2SAT 100
[2023-09-07 16:55] LABS: Glucose Point of Care 67 mg/dl (65-105)
[2023-09-07 17:25] LABS: Glucose Point of Care 93 mg/dl (65-105)
--- NOTE | 2023-09-07 18:48 | PC.NURSE ---
This pt was frequently reminded throughout the shift about hip precautions, not bending past 90, not crossing legs, not twisting, using her walker, not getting up without assistance. Pt corrected by this RN, PCT, community youth secretary, other release and technical records clerk and RNs, PT, OT, and family. Hip precautions handout given again. Lunchtime blood sugar was low at 50, given two apple juices and rechecked with a BS of 56. MD called and hypoglycemic protocol ordered. Pt given 12.5 of D50. BS rechecked 20 minutes later and up to 80. Pt instructed and sugar peaked at 95. Received order for discharge, but contacted [facility] because of hypoglycemia and need for IVP dilaudid twice. Pt unhappy at having to stay. Pt offered the option of leaving AMA, but she decided to stay. Discharge cancelled. Security called for pt as she demanded her family to leave. Daughters didn't want to leave. Pt continued to yell. Security removed family. Pt sugar low at 67 at dinner. Education provided. Pt encouraged to eat.
[2023-09-07] MEDS: TOPIRAMATE 100 MG TABLET PO (20:09)
[2023-09-07] MEDS: DIVALPROEX SODIUM DR 250 MG TABEC 1000 MG PO (20:09)
[2023-09-07 20:30] VITALS: BP 110/65; PULSE 84; RESP 20; TEMP 36.4; O2SAT 96
[2023-09-07 21:04] LABS: Glucose Point of Care 84 mg/dl (65-105)
--- NOTE | ~2023-09-08 | XR_ITS ---
EXAMINATION: XR hip LT 1V DATE: 09/06/2023 11:00 INDICATION: Left hip arthroplasty TECHNIQUE: AP portable view of the left hip FINDINGS: There is a left total hip arthroplasty in expected position. Subcutaneous gas with soft ti ssue swelling are consistent with recent surgery. IMPRESSION: 1. Recent left total hip arthroplasty. Reviewed, dictated and finalized at location B.
[2023-09-08 00:45] LABS: Glucose Point of Care 66 mg/dl (65-105)
[2023-09-08] MEDS: oxyCODONE/ACETAMINOPHEN (*CRX) 10-325 MG TABLET 1 TAB PO ×2 (01:15→09:03)
[2023-09-08 02:59] LABS: Glucose Point of Care 77 mg/dl (65-105)
[2023-09-08 02:59] LABS: Glucose Point of Care 110 mg/dl (65-105)
--- NOTE | 2023-09-08 03:47 | PC.NURSE ---
Addendum entered by Jerrica Arguello RN 09/08/23 03:49: this RN called night hospitalist and notified of situation, no new orders were received Original Note: incident report filed- this RN found pt sitting in the restroom with the shower running, pt stated i was cold , when asked if they had fallen pt stated no, and they were only in there to warm up because its too cold in her room
--- NOTE | 2023-09-08 03:51 | PC.NURSE ---
this RN and tech to room after pt set off bed alarm, pt was very agitated, and stated that im 53 years old and I don't need an alarm on and, i don't need any help with anything and i'm just going to keep setting off the alarm to use the restroom . Pt also stated if she could she would go back in the restroom and turn the shower back on because its still freezing, and blankets aren't going to help her. Pt also is still non compliant with following hip precautions after being educated on the importance of following them multiple times
[2023-09-08 05:15] VITALS: BP 97/68; PULSE 114; RESP 18; TEMP 37.1; O2SAT 100
[2023-09-08 07:52] LABS: Glucose Point of Care 90 mg/dl (65-105)
[2023-09-08 08:00] VITALS: BP 100/69; PULSE 98; RESP 16; TEMP 36.1; O2SAT 98
[2023-09-08 08:43] VITALS: BP 100/69; PULSE 98; RESP 16; TEMP 36.1; O2SAT 98
[2023-09-08] MEDS: DIVALPROEX SODIUM DR 250 MG TABEC 500 MG PO (09:02)
[2023-09-08] MEDS: metFORMIN HCL 500 MG TABLET 1000 MG PO (09:02)
[2023-09-08] MEDS: SENNA/DOCUSATE SODIUM TABLET 2 TAB PO (09:02)
[2023-09-08] MEDS: PREGABALIN (*CRX) 50 MG CAPSULE 100 MG PO (09:03)
[2023-09-08] MEDS: ROSUVASTATIN 10 MG TABLET PO (09:03)
[2023-09-08] MEDS: ASPIRIN 325 MG ENTERIC TABLET PO (09:03)
[2023-09-08] MEDS: PANTOPRAZOLE 40 MG TABLET PO (09:04)
[2023-09-08 09:13] LABS: Basophils Percent Auto 0.4 % (0.2-1.2); Eosinophils Absolute Auto 0.1 K/mm3 (0-0.3); Eosinophils Percent Auto 0.9 % (0-4.4); Hematocrit 28.7 % (37.0-47.0); Immature Granulocyte Absolute 0.03 K/mm3 (0.00-0.031); Immature Granulocyte Percent A 0.4 % (0-0.5); Lymphocytes Absolute Auto 2.04 K/mm3 (0.9-3.2); Lymphocytes Percent Auto 25.7 % (18.3-44.2); Mean Corpuscular HGB Conc 31.4 g/dl (32-36); Mean Corpuscular Hemoglobin 27.7 pg (26-34); Mean Corpuscular Volume 88.3 fl (80-100); Mean Platelet Volume 10.3 fl (7.4-10.4); Monocytes Absolute Auto 0.7 K/mm3 (0.1-0.6); Monocytes Percent Auto 8.7 % (2.6-8.5); Neutrophils Absolute Auto 5.1 K/mm3 (1.3-6.7); Neutrophils Percent Auto 63.9 % (45.5-73.1); Platelet Count Result 289 k/mm3 (150-375); Red Blood Count 3.25 M/mm3 (4.2-5.4); Red Cell Distribution Width 14.4 % (11.5-14.5)
[2023-09-08 09:31] LABS: Anion Gap 13 mmol/L (4-12); Blood Urea Nitrogen 11 mg/dL (7-17); Calcium 9.1 mg/dL (8.4-10.2); Carbon Dioxide 26 mmol/L (22-30); Chloride 101 mmol/L (98-107); Estimated CRCL calculation 77 ml/min; Estimated Glomerular Filt Rate > 60; Glucose 114 mg/dL (65-110); Potassium 3.6 mmol/L (3.4-5.0); Sodium 140 mmol/L (137-145)
--- NOTE | 2023-09-08 09:53 | PM.PNORT ---
Progress Note: A&P Assessment and Plan (1) S/P total hip arthroplasty: Qualifiers: Laterality: left Qualified Code(s): Z96.642 - Presence of left artificial hip joint Code(s): Z96.649 - Presence of unspecified artificial hip joint Status: Acute Assessment and Plan: POD #2: Left ANDREW Continue PT/OT. WBAT. Walker. HIGH FALL RISK. Continue pain control. Ice Hip. Protect skin. DVT prophylaxis with Aspirin. SCDs. Incentive Spirometry Use reviewed. Monitor Dressing. Change prior to discharge. Bowel Regimen. Dispo: Home with Home Health pending progress with PT/OT Plan Time Spent With Patient Time: Reviewed history, exam, radiographs and current labs with attending MD and covering surgeon, Dr. Ceballos, who agrees with current plan as indicated above. No further recommendations from Dr. Ceballos at this time. Time with patient: less than 15 minutes Subjective Subjective Date/Time Seen: 09/08/23 09:53 Post Op day: 2 Interval history: POD #2: Left ANDREW Patient with improved vitals and blood glucose today. Pain better controlled. No longer requiring IV pain medication. Ready for d/c home today. Review of Systems Constitutional: Constitutional: Denies chills, Denies fatigue, Denies fever(s), Denies night sweats and Denies weakness Cardiovascular: Cardiovascular: Denies chest pain, Denies lightheadedness, Denies palpitations and Denies dyspnea Respiratory: Respiratory: Denies cough, Denies dyspnea and Denies wheezing Gastrointestinal: Gastrointestinal: Denies abdominal pain, Denies diarrhea, Denies nausea and Denies vomiting Musculoskeletal: Musculoskeletal: Reports arthralgias (left hip ), Reports joint swelling (left hip ) and Denies numbness Neurologic: Denies numbness and Denies weakness Endocrine: Endocrine: Denies fatigue and Denies palpitations Allergic/Immunologic: Allergic/Immunologic: Denies wheezing Exam Const: General: comfortable and no acute distress Orientation/consciousness: patient oriented x3 Limitations: no limitations Resp: Effort & Inspection: normal respiratory effort Cardio: Rate: regular rate Rhythm: regular rhythm GI: Inspection: non-distended Skin: General skin exam: normal color and wounds noted (incision left hip C/D/I ) Wounds: wounds noted (incision left hip C/D/I ) Neuro: General: patient oriented x3 Extrem: Left lower extremity: hip/thigh Details: tenderness Location: of the hip Location: laterally and anteriorly, swelling (thigh soft ) Location: of the hip (lateral. ), abnormal ROM (limitations with internal/external rotation and flexion/extension due to recent surgical intervention ) and other (incision lateral hip c/d/i. ), knee Details: normal to inspection and normal ROM; no tenderness and no swelling, lower leg (Negative Guy's Sign ) Details: no edema, ankle (+ankle dorsiflexion/plantarflexion ) Details: normal to inspection, no edema and normal ROM; no tenderness, no swelling and no warmth and foot Details: normal capillary refill, toes with normal ROM, vascular exam Details: dorsalis pedis pulse present and motor-sensory exam light-touch normal in all toes; no tenderness, no ecchymosis and no crepitus Psych: Mental Status: mental status grossly normal Affect: normal affect Objective Data Vital Signs Vital Signs: Vital Signs - 24 hr 09/07/23 12:00 09/07/23 16:00 09/07/23 20:30 Temperature 37.2 C 37.1 C 36.4 C L Pulse Rate 115 H 118 H 84 Respiratory Rate 18 22 H 20 Blood Pressure 99/58 L 133/80 110/65 Pulse Oximetry 96 100 96 09/08/23 05:15 09/08/23 08:00 09/08/23 08:43 Temperature 37.1 C 36.1 C L 36.1 C L Pulse Rate 114 H 98 98 Respiratory Rate 18 16 16 Blood Pressure 97/68 L 100/69 100/69 Pulse Oximetry 100 98 98 Intake/Output Intake/Output: Intake & Output 09/05/23 09/06/23 09/07/23 09/08/23 23:59 23:59 23:59 23:59 Intake Total 1160 2580 665 Balance 1160 2580 665 Meds/Results Medications:
[2023-09-13 14:17] LABS: Glucose Point of Care 110 mg/dl (65-105)
== END 2023-09-08 10:35 | disposition home health service (06) ==
LOC: ANHSURGERY 08:41 → ANH3MEDSUR 08:41
PROVIDERS: Nurse Practitioner Family; Admitting Provider Orthopaedic Surgery; PCP Emergency Medicine; Visit Provider Orthopaedic Surgery
PROC: (CPT 27130; principal; 2023-09-06 07:30)
DX: M16.12 Unilateral primary osteoarthritis, left hip (principal); M79.7 Fibromyalgia; F41.9 Anxiety disorder, unspecified; F31.9 Bipolar disorder, unspecified; G62.9 Polyneuropathy, unspecified; F43.10 Post-traumatic stress disorder, unspecified; Z87.891 Personal history of nicotine dependence; E66.9 Obesity, unspecified; Z68.33 Body mass index [BMI] 33.0-33.9, adult; Z79.51 Long term (current) use of inhaled steroids; Z79.82 Long term (current) use of aspirin; Z79.84 Long term (current) use of oral hypoglycemic drugs; Z79.85 Long-term (current) use of injectable non-insulin antidiabetic drugs
CPT/HCPCS: 27130; 36415; 73501; 80048; 82948; 85025; 86850; 86900; 86901; 97110; 97116; 97161; 97165; 97530; 97535; A9270; C1776; G0378; G0379; J0171; J0690; J1170; J1885; J2250; J2270; J2371; J2405; J2704; J2795; J3010; J7030; J7120

== ENCOUNTER 2023-09-20 14:21 | Outpatient (NON) | payer OTHER, SELFPAY ==
[2023-09-20 14:44] LABS: Hematocrit 36.3 % (37.0-47.0); Hemoglobin 10.9 g/dL (12.0-15.0); Mean Corpuscular Hemoglobin 27.6 pg (26-34); Mean Corpuscular Volume 91.9 fl (80-100); Mean Platelet Volume 9.8 fl (7.4-10.4); Platelet Count Result 413 k/mm3 (150-375); Red Blood Count 3.95 M/mm3 (4.2-5.4); Red Cell Distribution Width 15.7 % (11.5-14.5); White Blood Count 7.5 K/mm3 (4.5-10.0)
== END 2023-09-20 14:22 | disposition home or self-care (01) ==
PROVIDERS: PCP Emergency Medicine; Visit Provider Orthopaedic Surgery
DX: D64.9 Anemia, unspecified (principal); Z47.1 Aftercare following joint replacement surgery; Z96.642 Presence of left artificial hip joint
CPT/HCPCS: 85027

== ENCOUNTER 2023-12-27 12:13 | Outpatient (CLI) | payer OTHER, SELFPAY ==
[2023-12-27 12:57] LABS: Alanine Aminotransferase 20 U/L (6-35); Albumin Level 4.2 g/dL (3.5-5.1); Alkaline Phosphatase 93 U/L (38-126); Anion Gap 8 mmol/L (4-12); Aspartate Amino Transferase 23 U/L (14-36); Bilirubin,Total 0.3 mg/dL (0.2-1.3); Blood Urea Nitrogen 9 mg/dL (7-17); Calcium 9.1 mg/dL (8.4-10.2); Carbon Dioxide 28 mmol/L (22-30); Chloride 107 mmol/L (98-107); Cholesterol 131 mg/dL (0-200); Estimated Glomerular Filt Rate > 60; Glucose 89 mg/dL (65-110); HDL Direct 30 mg/dL; Potassium 3.6 mmol/L (3.4-5.0); Sodium 143 mmol/L (137-145); Triglycerides 144 mg/dL (<150)
[2023-12-27 13:01] LABS: Hematocrit 40.4 % (37.0-47.0); Hemoglobin 12.8 g/dL (12.0-15.0); Mean Corpuscular HGB Conc 31.7 g/dl (32-36); Mean Corpuscular Hemoglobin 27.8 pg (26-34); Mean Corpuscular Volume 87.8 fl (80-100); Mean Platelet Volume 11.5 fl (7.4-10.4); Platelet Count Result 192 k/mm3 (150-375); Red Cell Distribution Width 13.8 % (11.5-14.5)
[2023-12-27 13:09] LABS: LDL Cholesterol Direct 75 mg/dL
[2023-12-27 14:03] LABS: Creatinine Urine 88.7 mg/dL
[2023-12-27 14:30] LABS: Vitamin D 25 Hydroxy 24.9 ng/mL
[2023-12-27 14:47] LABS: MALB Creatinine Ratio < 6.8 mg/g (0-30); Microalbumin Urine Random < 6.0 mg/L (0-16.7)
[2023-12-27 18:26] LABS: Hemoglobin A1C 5.8 % (<5.7)
== END 2023-12-27 12:14 | disposition home or self-care (01) ==
PROVIDERS: PCP Emergency Medicine; Referring Provider Nurse Practitioner Family; Visit Provider Emergency Medicine
DX: E55.9 Vitamin D deficiency, unspecified (principal); E11.9 Type 2 diabetes mellitus without complications; E78.5 Hyperlipidemia, unspecified; Z96.649 Presence of unspecified artificial hip joint
CPT/HCPCS: 36415; 80053; 80061; 82043; 82306; 83036; 85027

== ENCOUNTER 2024-04-02 10:34 | Outpatient (CLI) | payer OTHER, SELFPAY ==
[2024-04-02 11:47] LABS: Hemoglobin A1C 5.3 % (<5.7)
[2024-04-02 11:50] LABS: Alanine Aminotransferase 18 U/L (6-35); Albumin Level 4.4 g/dL (3.5-5.1); Alkaline Phosphatase 93 U/L (38-126); Anion Gap 13 mmol/L (4-12); Aspartate Amino Transferase 23 U/L (14-36); Bilirubin,Total 0.3 mg/dL (0.2-1.3); Blood Urea Nitrogen 14 mg/dL (7-17); Calcium 9.7 mg/dL (8.4-10.2); Carbon Dioxide 24 mmol/L (22-30); Chloride 108 mmol/L (98-107); Cholesterol 175 mg/dL (0-200); Estimated Glomerular Filt Rate > 60; Glucose 82 mg/dL (65-110); HDL Direct 44 mg/dL; Sodium 145 mmol/L (137-145); Triglycerides 186 mg/dL (<150)
--- OUTSIDE RECORDS SUMMARY | 2024-04-02 11:52 | XMS_ITS | Continuity of Care Document ---
Author Organization [facility] Address [address] [place] [address] [place] [address] Phone Care Team Providers Care Terrazzo Roller Name Role Phone Thong Persaud MD Unavailable Unavailable Allergies, Adverse Reactions, Alerts Substance Reaction Status Criticality meloxicam Active No Information Medications Medication Instructions Dosage Effective Dates (start - stop) Status Comments [place] 5 mg-325 mg tablet take 1 tablet by oral route every 6 hours as needed for pain - Active PRN for pain, avoid driving or operaete machines Ultram 50 mg tablet take 1 tablet by oral route 3 times every day as needed 50 MG - Active avoid drivin g or oeprate machines losartan 100 mg tablet take 1 tablet by oral route every day 100 MG - Active propranolol 40 mg tablet take 1 tablet by oral route 2 times every day 40 MG - Active Zocor 40 mg tablet take 1 tablet by oral route every day in the evening 40 MG - Active Ventolin HFA 90 mcg/actuation aerosol inhaler inhale 2 puff by inhalation route every 4 - 6 hours as needed - Active metformin 1,000 mg tablet take 1 tablet by oral route 2 times every day with morning and evening meals 1000 MG - Active Procedures Procedure Date OFFICE/OUTPATIENT VISIT, EST OFFICE/OUTPATIENT VISIT, EST OFFICE/OUTPATIENT VISIT, EST OFFICE/OUTPATIENT VISIT, EST OFFICE/OUTPATIENT VISIT, EST OFFICE/OUTPATIENT VISIT, EST OFFICE/OUTPATIENT VISIT, EST OFFICE/OUTPATIENT VISIT, EST PREV VISIT, NEW, AGE 40-64 OFFICE/OUTPATIENT VISIT, NEW Advance Directives Directive Yes / No Effective Date File Name No Information Encounters Encounter Description Practice Location Reason(s) For Visit Diagnoses Date Provider Providers Copied on Encounter OFFICE/OUTPA TIENT VISIT, [facility], [address], [place], [place], [address], [place] tel:[phone] [facility], [place], [facility] chronic pain (chief complaint) asthma1 (chief complaint) HTN (chief complaint) AsthmaEssential (primary) hypertensionChronic pain syndrome 6 Hung Benito. [address], [place], [place], [address] , [place]. tel:[phone] Referring Provider: Asia Guti[address]rez [address], [place], [place], [address]. tel:[phone] OFFICE/OUTPA TIENT VISIT, [facility], [address], [place], [place], [id number], [place] tel:[phone] [facility], [place], [facility] asthma1 (chief complaint) alcohol (chief complaint) back apin (chief complaint) arm numnbess1 (chief complaint) AsthmaAlcohol dependence, uncomplicatedChroni c pain syndromeNeuropathy 6 Hung Benito. [address], [place], [place], [address] , [place]. tel:[phone] Referring Provider: Asia Guti[address]rez [address], [place], [place], [address]. tel:[phone] OFFICE/OUTPA TIENT VISIT, [facility], [address], [place], [place], [address], [place] tel:[phone] [facility] [place] HTN (chief complaint) back pain1 (chief complaint) asthma (chief complaint) HLP (chief complaint) AsthmaLumbagoEssent ial (primary) hypertensionHyperli pidemia 6 Hung Benito. [address], [place], [place], [address] , [place]. tel:[phone] Referring Provider: Asia Gutiérrez [address], [place], [place], [address]. tel:[phone] OFFICE/OUTPA TIENT VISIT, [facility], [address], [place], [place], [address], [place] tel:[phone] [facility] [place] headache1 (chief complaint) eye (chief complaint) back pain1 (chief complaint) HeadacheLumbagoEsse ntial (primary) hypertensionConjunc tivitis 6 Hung Benito. [address], [place], [place], [address] , [place]. tel:[phone] Referring Provider: Asia Guti[address]rez [address], [place], [place], [address]. tel:[phone] OFFICE/OUTPA TIENT VISIT, [facility], [address], [place], [place], [address], [place] tel:[phone] [facility] [place] HTN (chief complaint) back pain (chief complaint) lumbago1 (chief complaint) DM (chief complaint) HyperlipidemiaEssen tial (primary) hypertensionHeadach eLumbago 6 Hung Benito. [address], [place], [place], [address] , [place]. tel:[phone] Referring Provider: Asia Gutiérrez [address], [place], [place], [address]. tel:[phone] OFFICE/OUTPA TIENT VISIT, [facility], [address], [place], [place], [address], [place] tel:[phone] [facility] HTN (chief complaint) back pain1 (chief complaint) anxiety1 (chief complaint) Essential (primary) hypertensionChronic pain syndromeDepressionO besity 6 Hung Benito. [address], [place], [place], [address] , [place]. [phone] Referring Provider: Asia Gutiérrez [address], [place], [place], [address]. tel:[phone] OFFICE/OUTPA TIENT VISIT, [facility], [address], [place], [place], [address], [place] tel:[phone] [facility] [place] chronic pain (chief complaint) HTN (chief complaint) HLP (chief complaint) anxiety1 (chief complaint) Chronic pain syndromeHyperlipide miaEssential (primary) hypertensionDepress ion 6 Hung Benito. [address], [place], [place], [address] , [place]. [phone] Referring Provider: Asia Gutiérrez [facility] [address], [place], [place], [address]. tel:[phone] OFFICE/OUTPA TIENT VISIT, [facility], [address], [place], [place], [address], [place] tel:[phone] [facility] [place] COPD1 (chief complaint) cough1 (chief complaint) preDM (chief complaint) HLP (chief complaint) bipolar (chief complaint) Metabolic syndromeHyperlipide miaAcute bronchitisChronic pain syndrome 6 Hung Benito. [address] [facility] [address], [place], [place], [address] , [place]. [phone] Referring Provider: Asia Gutiérrez [facility] [address], [place], [place], [address]. tel:[phone] PREV VISIT, NEW, AGE 40-64 [facility], [place], [address] [place], [address], [place] tel:[phone] [facility] [place] PHysical (chief complaint) Encounter for general adult medical exam w abnormal findingsType 2 diabetes mellitus without complicationsEssent ial (primary) hypertensionHyperli pidemia 6 Hung Benito. [address] [facility] [address], [place], [place], [address] , [place]. [phone] Referring Provider: Asia Gutiérrez [facility] [address], [place], [place], [address]. tel:[phone] Family History Family Member Type Diagnosis Age At Onset Brother Problem (finding) Alive and well Father Problem (finding) Leukemia Mother Problem (finding) colon CA 47 Payers Payer name Insurance type Covered green party ID Authorelizabeth tion(s) No Information Social History Type Description Quantity Date Captured Comments Alcohol Use Details No Caffeine Use Details Unknown Tobacco Use Status Cigarette smoker Smoking Status Current every day smoker 2015 Sex Female Vital Signs Date / Time: Height Weight BMI Pulse Rate Blood Pressure Temperature Respiratory Rate Body Surface Area Head Circumference BMI percentile Pulse Ox Inhaled Ox 11:15 AM 170.18 cm 236.00 lbs 36.9 6 kg/m eter (2) 84 /min 136/79 mm[Hg] 97.5 F 18 /min Chief Complaint And Reason For Visit From encounter dated '12/24/2015 10:00'. chronic pain (chief complaint). Description: Pt has chronic neck and back pain and headache. Pt is on propranolol and ultram and norco PRN for paing. Pt had benign neck xray Pt states that she is doing ok with her pain now asthma1 (chief complaint). Description: Pt had benign chest xray. Pt states that insurance did approve for symbicort. pt is on symbicort now. No qvar Pt uses ventolin 1-2 per week. Pt dose smoke HTN (chief complaint). Description: Pt has HTN. Pt takes losartan and propranolol. Her BP is stable Plan Of Treatment Date Type Action Status Referral Ordered: CERVICAL SPINE XRAY 2 OR 3 VIEWS ordered Referral Ordered: CHEST X-RAY PA/LAT TWO-VIEWS ordered History Of Present Illness Encounter Date Complaint History Of Prese nt Illness HTN Pt has HTN. Pt t akes losartan and propranolol. Her BP is stable chronic pain Pt has chronic n bob and back pain and headache. Pt is on propranolol and ultram and norco PRN for paing. Pt had benign neck xray Pt states that she is doing ok with her pain now asthma1 Pt had benign ch est xray. Pt states that insurance did approve for symbicort. pt is on symbicort now. No qvar Pt uses ventolin 1-2 per week. Pt dose smoke asthma1 P has asthma. Pt doing ok with symbicort but insurance does not cover symbicort Pt uses albuterol once per day. Pt jax any acute SOB. Pt still smoking alcohol Pt states that s he drinks alcohol daily. Pt drink a tall can of beer daily per pt back apin Pt has chronic l ow back pain.Pt states that she takes ultram daily. However, there is no ultram in her last UDS arm numnbess1 Pt c/o bilateral arm numnbess for one month. Pt also has foot and leg numnbess. Pt sees neurology and was told she has pinch neve. Pt is on neurontin. Pt does not have diabetic neuropathy per my understanding. Pt c/o neck pain as well HTN Pt has HTN. Pt t akes losartan and propranolol and her BP is stable. pt has not been having headache. No chestp ain back pain1 Pt has chronic l ow back apin Pt has 6/10 pain. Pt denides any loss of bowel or bladder control. Pt sees neuropathy for neuropathy. Pt is on neuronitn per neurology. Pt denies any worsening pain Pt states that she is doing ok with her pain meds asthma The initial visi t date was 11/25/2015. The initial visit date was 11/25/2015. Additional information: Pt has COPD/asthma. Pt uses symbicort. Pt uses venotlin once every week. Pt has not done chset xray yet. pt still smoking. No acute SOB. HLP Pt has HLP. Pt t akes zocor. Pt denies any myalgia headache1 Pt has migraine heada hce. Pt has been taking propranolol and she thinks that her headache is slighlty better. Pt has less frequent headache and is not as severe. Pt has headache 1-2 per week. Pt had normal MRI of brain. Pt denies any triggering factor eye Pt c/o irritatio n right eye and also purulent pus drinage from right eye for 2-3 days. Pt states that her eye is matted shot in the morning. Pt denies any eye pain or any foreign body. Pt denies any vision loss. back pain1 Pt has chronic l ow back pain. Pt has 6/10 pain. Pt c/o sciatica and leg numnbess. Pt takes ultram and norco PRn for pain and her pain is well controlled. Pt failed PT and nSAID in the past. Pt denies any worsening pain HTN Pt is on losarta n and her BP is slightly high today Pt denies any chest pain. Pt states that she has been having headache for one week. pt states that ultram is not working. Pt has history of migraine headache and she feels photosensitivity and also nasuea with headache Pt has headache twice per week. Pt had normal MRI of brain back in 2009. Pt has been having heaache for 7-10 years. No head injury back pain lumbago1 Pt has chronic l ow back pain. Pt denies any loss of kyle or bladder control. Pt has sciatica and leg numbness pt is getting pain injections by pain management. PT states that ultram is not helping her pain. DM Pt is prediabeti c and she has mild HLP. pt is on metformin. Pt has low vitamin D HTN Pt has HTN. Pt t akes lisinopril and her bp is borderline. Pt denies any chest apin or headache back pain1 Pt has chronic l ow back pain. Pt is getting injection from Dr. Pollock now. Pt denies any worsening pain, Pt denies any loss of bowel or bladder control anxiety1 Pt has chornic a nxiety and depression. Pt is on prozac and she just seen psychiatrist and is started on zyprexa. Pt is off haldol. Pt has schizoaffective, bipolar disorder. Pt denies any suicidal or homicdial thought. Pt denies any hearing voices. chronic pain Pt has chronic l ow back and knee pain. Pt c/o sciatica and leg numbness. Pt states that she needs more ultraum due to her pain. Pt had MRI of Lspine done recently. HTN Pt has HTN. Pt t akes lisinopril and her BP is high today. Pt denies any chest pain or headache. HLP Pt has HLP Pt ta kes zocor. Pt denies any myalgia. anxiety1 Pt has chornic a nxiety and depression. Pt takes prozac. Pt missed her appointment with psychiatrist. Pt doing ok. Pt denies any suicidal or homicidal thought COPD1 Pt states that s he has labored breathing and SOB frequently. Pt has diagnosis of COPD. Pt takes symbicort and venotlin PRN. Pt uses ventolin almost daily. pt denies any acute SOB cough1 Pt c/o acute cou ghing with yellow phlegm, sore throat, running nose for several days. Pt denies any fever, chill. preDM Pt is prediabeti c. pt takes metformin. Her A1c is only 6.0. Pt denies any numbness. Pt denies any polyuria, polydipsia HLP Pt takes zocor a nd doing ok. Pt denies any myalgia. Her lipid profle normal bipolar Pt has bipolar a nd she takes prozac. Pt denies any suicidal or homicdialt hought. Pt denies any crying spells. Pt doing ok. Pt sees psychiatrist PHysical Pt needs annual physical. Pt has DM and HTN and HLP. Pt takes lisinopril, metformin and zocor. Pt states that her BG is around 100. Pt denies any polyruia, polydipsia. Pt denies any hypoglycemia. Pt has family history of colon CA and she does colonoscopy every two years and she just had normal colonosopy recently. Pt c/o chronic knee and right shoulder and low back pain due to arthritis. Pt used to take norco. Pt states that ibuprofen does not help. Pt denies any recent injury .Pt denies any sciatica. pT denies any other complaints Instructions Date Instruction Additional Infor ramirez Prescribed Diet Educ ation/Lifestyle Education Regarding Diet Related to Dietary Surveillance and Counseling Prescribed Activity and Exercise Education Related to Dietary Surveillance and Counseling Prescribed Activity and Exercise Education Related to Dietary Surveillance and Counseling Prescribed Diet Educ ation/Lifestyle Education Regarding Diet Related to Dietary Surveillance and Counseling Prescribed Activity and Exercise Education Related to Dietary Surveillance and Counseling Prescribed Diet Educ ation/Lifestyle Education Regarding Diet Related to Dietary Surveillance and Counseling Prescribed Diet Educ ation/Lifestyle Education Regarding Diet Related to Dietary Surveillance and Counseling Prescribed Activity and Exercise Education Related to Dietary Surveillance and Counseling Prescribed Activity and Exercise Education Related to Dietary Surveillance and Counseling Prescribed Diet Educ ation/Lifestyle Education Regarding Diet Related to Dietary Surveillance and Counseling Prescribed Diet Educ ation/Lifestyle Education Regarding Diet Related to Dietary Surveillance and Counseling Prescribed Activity and Exercise Education Related to Dietary Surveillance and Counseling Prescribed Diet Educ ation/Lifestyle Education Regarding Diet Related to Dietary Surveillance and Counseling Prescribed Activity and Exercise Education Related to Dietary Surveillance and Counseling Prescribed Activity and Exercise Education Related to Dietary Surveillance and Counseling Prescribed Diet Educ ation/Lifestyle Education Regarding Diet Related to Dietary Surveillance and Counseling Prescribed Diet Educ ation/Lifestyle Education Regarding Diet Related to Dietary Surveillance and Counseling Prescribed Activity and Exercise Education Related to Dietary Surveillance and Counseling Assessments Type Assessment Date assessment Asthma assessment Essential (primary) hypertension assessment Chronic pain syndrome 6 Mental Status Date Cognitive Assessment Orientation - [place] ed to time, place, person, situation.
--- OUTSIDE RECORDS SUMMARY | 2024-04-02 11:52 | XMS_ITS | Referral Summary ---
Author Organization [facility] Address [address] [place] [address] Care Team Providers Care Scout Executive Name Role Phone Unknown, Notinfile Primary Care Provider Unavail able Allergies Active Allergy Reactions Criticality Noted Date Comments Meloxicam Anaphylaxis High Tongue swelling Medications simvastatin (ZOCOR) 40 mg tabletIndication s:hyperlipidemia Take 40 mg by mouth every morning 7 Active propranoloL (INDERAL) 40 mg tabletIndication s:Migraine Prevention Take 40 mg by mouth 2 (two) times a day 7 Active naproxen (NAPROSYN) 500 mg tablet Take 500 mg by mouth 2 (two) times a day as needed for pain 7 Active metFORMIN (GLUCOPHAGE) 1,000 mg tabletIndication s:Prevention of Type 2 Diabetes Mellitus Take 1,000 mg by mouth 2 (two) times a day with meals 5 Active losartan (COZAAR) 100 mg tabletIndication s:hypertension Take 100 mg by mouth every morning 7 Active hydrOXYzine (VISTARIL) 25 mg capsuleIndicatio ns:anxiety Take 25 mg by mouth 3 (three) times a day as needed for allergies [address] (DEPAKOTE) 500 mg EC tabletIndication s:Bipolar Disorder Take 125 mg by mouth 3 (three) times a day 7 Active vitamin E (vitamin E) 400 unit capsuleIndicatio ns:supplement Take 400 Units by mouth every morning 8 Active albuterol HFA (Ventolin HFA) 90 mcg/actuation inhalerIndicatio ns:Chronic Obstructive Pulmonary Disease,last used 11/25/2019 Inhale 2 puffs every 4 (four) hours as needed [address] (CYMBALTA) 60 mg capsuleIndicatio ns:Binge Eating Disorder Take 60 mg by mouth every morning Active pregabalin (LYRICA) 75 mg capsuleIndicatio ns:neuropathy Take 75 mg by mouth 2 (two) times a day Active cyclobenzaprine (FLEXERIL) 10 mg tablet Take 10 mg by mouth 3 (three) times a day as needed for muscle spasms Active multivitamin capsuleIndicatio ns:Vitamin Deficiency Prevention Take 1 capsule by mouth every morning Active omeprazole (PriLOSEC) 20 mg capsuleIndicatio ns:Stress Ulcer Prophylaxis Take 20 mg by mouth every morning Active benzonatate (TESSALON) 100 mg capsule TAKE 1 CAPSULE BY MOUTH THREE TIMES A DAY NEEDED 1 Active Symbicort 160-4.5 mcg/actuation inhaler TAKE 2 PUFFS BY MOUTH TWICE A DAY IN THE MORNING AND IN THE EVENING 1 Active OneTouch Ultra Blue Test Strip strip USE TO TEST BLOOD SUGAR ONCE DAILY BEFORE BREAKFAST [address] (VOLTAREN) 50 mg EC tablet Take 50 mg by mouth 2 (two) times a day 1 Active ergocalciferol (VITAMIN D) 50,000 unit capsule Take 50,000 Units by mouth 1 Active OneTouch Delica Plus Lancet 33 gauge misc USE TO TEST BLOOD SUGAR ONCE DAILY BEFORE BREAKFAST 1 Active nicotine polacrilex (NICORETTE) 2 mg gum CHEW 1 PIECE OF GUM EVERY 2 HOURS NEEDED. 1 Active QUEtiapine (SEROquel) 300 mg tablet Take 300 mg by mouth daily Active FLUNISOLIDE INHAL 7 Active traMADoL (ULTRAM) 50 mg tabletIndication s:Back pain with left-sided sciatica Take 1 tablet (50 mg total) by mouth 2 (two) times a day as needed (for sciatica) 60 tablet 1 1 Active amantadine (SYMMETREL) 100 mg capsuleIndicatio ns:Tardive dyskinesia TAKE 1 CAPSULE BY MOUTH TWICE A DAY 60 capsule 5 2 Active dicyclomine (BENTYL) 20 mg tablet TAKE 1 TABLET BY MOUTH 3 TIMES A DAY BEFORE MEALS 90 tablet 3 2 Active Active Problems Problem Noted Date Diagnosed Date Abdominal pain 10/30/2020 Assessment & Plan (10/30/2020 1:13 PM CDT): EGD Family history of colonic polyps 10/20/2020 Overview (10/20/2020): Added automatically from request for surgery [id number] Back pain with left-sided sciatica 10/19/2020 Diverticulosis 09/13/2020 Overview (09/13/2020): Added automatically from request for surgery [id number] Family history of colon cancer in mother 021 Overview (09/13/2020): Added automatically from request for surgery [id number] Hx of colonic polyps 09/13/2020 Overview (09/13/2020): Added automatically from request for surgery [id number] Diverticulosis of colon 09/11/2020 Assessment & Plan (09/11/2020 1:48 PM CDT): Colonoscopy and then recap in office Carpal tunnel syndrome of left wrist 06/30/2020 Tardive dyskinesia 04/28/2020 Complex dental caries 11/28/2019 Overview (11/28/2019): Added automatically from request for surgery [id number] Essential hypertension, malignant 11/28/2019 Overview (11/28/2019): Added automatically from request for surgery [id number] Breath, shortness 11/28/2019 Overview (11/28/2019): Added automatically from request for surgery [id number] Severe diabetes mellitus (CMS/HCC) 11/28/2019 Overview (11/28/2019): Added automatically from request for surgery [id number] Posttraumatic stress disorder 11/28/2019 Overview (11/28/2019): Added automatically from request for surgery [id number] Anxiety 11/28/2019 Overview (11/28/2019): Added automatically from request for surgery [id number] Infection following a procedure, subsequent enco unter 03/10/2017 Pyogenic arthritis 02/16/2017 Lumbar radiculopathy 01/23/2017 Other lesions of median nerve, right upper limb 01/06/2017 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 01/05/2017 Cervicalgia 05/13/2016 Carpal tunnel syndrome of right wrist 05/11/2016 Fibromyalgia 01/13/2016 Anxiety disorder 07/10/2015 Meralgia paresthetica 03/05/2015 Overview (12/28/2020): bilateral Overview: bilateral Diabetic peripheral neuropathy (CMS/HCC) 016 Low back pain with sciatica 03/04/2015 Cervical radiculopathy 03/04/2015 Social History Tobacco Use Types Packs/Day Years Used Date Smoking Tobacco: Every Day Cigarettes Smokeless Tobacco: Never Alcohol Use Standard Drinks/Week Comments Yes 0 (1 standard drink = 0.6 oz pur e alcohol) 4 per month-- Rare Comments No Sex and Gender Information Value Date Recorded Sex Assigned at Not on file Legal 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 Gender Identity Not on file Sexual Orientation Not on file Last Filed Vital Signs Vital Sign Reading Time Taken Comments Blood Pressure 138/94 07/03/2021 1:17 PM CDT Pulse 89 07/03/2021 1:17 PM CDT Temperature 36 C (96.8 F) 07/03/2021 1:14 PM CDT Respiratory Rate 18 07/03/2021 1:14 PM CDT Oxygen Saturation 99% 07/03/2021 1:17 PM CDT Inhaled Oxygen Concentration - - Weight 108.4 kg (239 lb) 07/03/2021 1:14 PM CDT Height 165.1 cm (5' 5 ) 07/03/2021 1:14 PM CDT Body Mass Index 39.77 07/03/2021 1:14 PM CDT Plan of Treatment Not on file Procedures Procedure Name Priority Date/Time Associated Diagnosis Comments EGFR STAT 07/03/2021 4:41 PM CDT SCREENING MAMMOGRAM BILATERAL W PAVAN Schedule Routine, Read Routine (OP Routine) 07/03/2021 12:59 PM CDT Screening mammogram, encounter for ALBUMIN CREATININE RATIO, URINE Routine 11/17/2020 11:00 AM CDT HEMOGLOBIN A1C Routine 11/17/2020 10:48 AM CDT LIPID PANEL Routine 11/17/2020 10:48 AM CDT COLONOSCOPY 10/22/2020 10:34 AM CDT from Last 3 Months or Most Recently Relevant to Health Maintenance Results * eGFR (07/03/2021 4:41 PM CDT) eGFR 102 mL/min/1. 73 m2 GENEVIEVE FONSECA ([place]) Comment: Interpretive Data Reference Interval Normal >/= 90 mL/min/1.73m2 Mildly decreased* 60 - 89 mL/min/1.73m2 Mildly to moderately decreased 45 - 59 mL/min/1.73m2 Moderately to severely decreased 30 - 44 mL/min/1.73m2 Severely decreased 15 - 29 mL/min/1.73m2 Kidney Failure < 15 mL/min/1.73m2 *Relative to young adult level Estimated glomerular filtration rate is determined by the 2020 CKD-EPI equation recommended by the National Kidney Foundation (A Unifying Approach to GFR Estimation: Recommendations of the NKF-ASK Task Force on Reassessing the Inclusion of Race in Diagnosing Kidney Disease, JASN 2020). The CKD-EPI equation should not be used for patients with unstable renal function and has not been validated in children and those over 70. Current interpretive data was last reviewed 2020. Blood 07/03/2021 4:41 PM CDT 07/03/2021 4:43 PM CDT Shawnrichelle Hernandez SPRAY GUN REPAIRER LAB BLOOD ORDERABLES Final Result GENEVIEVE FONSE[facility] ([place]) 1 [facility] [place] [address] * Screening Mammogram Bilateral W Pavan (07/03/2021 12:59 PM CDT) Anatomical Region Laterality Modality Breast Bilateral Mammography 07/05/2021 2:32 PM CDT Impressions 07/05/2021 2:32 PM CDT There is no mammographic evidence of malignancy. A 1 year screening mammogram is recommended. BI-RADS: 1 - Negative. The patient has been or will be contacted. The patient will be entered into a reminder system with a target due date of 1 year for her next mammogram. Electronically signed by: Cuco John M.D. Narrative 07/05/2021 2:32 PM CDT EXAMINATION: SCREENING MAMMOGRAM BILATERAL W PAVAN ORDERING HEALTHCARE PROVIDER: SELF SCREENING MAMMOGRAM HISTORY: Routine screening mammography. COMPARISON: 02/20/2020 TECHNIQUE: CC and MLO views of the bilateral breasts were obtained with digital technique using breast tomosynthesis with C view. Computer aided detection was utilized. FINDINGS: DENSITY: There are scattered fibroglandular elements in the bilateral breasts. BREASTS: There are no suspicious masses, suspicious calcifications, or other suspicious findings in either breast. There has been no suspicious interval change. Self Screening Mammogram IMG MAMMO PROCEDURES Fi nal Result * Albumin Creatinine Ratio, Urine (11/17/2020 11:00 AM CDT) Albumin Ur 30.7 mg/L [facility]ERNER [facility] ([place]) Comment: Interpretive Data No reference range established. Current interpretive data was last revised 2018. Testing performed by: [facility], [address] [place] [address], [place]., [address] Creatinine Ur 182.5 mg/dL GENEVIEVE FONSECA ([place]) Comment: Interpretive Data No reference range established. Current interpretive data was last revised 2018. Testing performed by: [facility], [address] [place] [address]., [id number] Albumin Creatinine Ratio, Ur 17 1 - 29 mg/g GENEVIEVE FONSECA ([place]) Comment:Testing performed by : [facility], [address] [place] [address]., [address] Urine 11/17/2020 11:0 0 AM CDT 11/17/2020 2:34 PM CDT Carla Harrell SPRAY GUN REPAIRER LAB URINE ORDERABLES Final R esult Performing Organization Address [facility] de Phone Number [facility] ([place]) [address] [facility] [place] [address] * (ABNORMAL) Hemoglobin A1c (11/17/2020 10:48 AM CDT) Hgb A1C 5.8(H) 4.0 - 5.6 % GENEVIEVE FONSECA ([place]) Estimated Average Glucose 120 mg/dL GENEVIEVE FONSECA ([place]) Comment: The ADA recommends reporting an estimated Average Glucose (eAG) with all Hemoglobin A1c results using the equation derived from a study of 507 normal and diabetic adults. Minority populations were underrepresented and children were not included. (Diabetes Care 31:5466-3381, 2008). The eAG is not equivalent to a fasting glucose. Blood 11/17/2020 10:4 8 AM CDT 11/17/2020 11:20 AM CDT Carla Harrell NP LAB BLOOD ORDERABLES Final R esult Performing Organization Address [facility] de Phone Number [facility] ([place]) [address] [facility] [place] [address] * (ABNORMAL) Lipid panel (11/17/2020 10:48 AM CDT) Cholesterol 174 30 - 199 mg/dL GENEVIEVE FONSECA ([place]) Comment: Interpretive Data Ages < or = 19 years Acceptable: <170 mg/dL Borderline high: 170-199 mg/dL High: >or= 200 mg/dL Ages > or = 20 years Desirable: <200 mg/dL Borderline high: 200-239 mg/dL High: >or= 240 mg/dL Literature References: 1. Expert Panel on Integrated Guidelines for Cardiovascular Health and Risk Reduction in Children and Adolescents. Pediatrics 2011;128:S213 2. NCEP Expert Panel. Circulation 2004;110:227 Current Interpretive Data was last revised on 2017. Triglycerides 234(H) <=149 mg/dL GENEVIEVE FONSECA ([place]) Comment: Interpretive Data Ages < or = 9 years Acceptable: <75 mg/dL Borderline high: 75-99 mg/dL High: >or= 100 mg/dL Ages 10 to 20 years Acceptable: <90 mg/dL Borderline high: 90-129 mg/dL High: >or= 130 mg/dL Ages > or = 20 years Desirable: <150 mg/dL Borderline high: 150-199 mg/dL High: 200-499 mg/dL Very high: >or= 499 mg/dL Literature References: 1. Expert Panel on Integrated Guidelines for Cardiovascular Health and Risk Reduction in Children and Adolescents. Pediatrics 2011;128:S213 2. NCEP Expert Panel. Circulation 2003;110:227 Current Interpretive Data was last revised on 2017. HDL 35(L) >=40 mg/dL GENEVIEVE FONSECA ([place]) Comment: Interpretive Data Ages < or = 19 years Acceptable: >45 mg/dL Borderline low: 40-45 mg/dL Low: <40 mg/dL Ages > or = 20 years Desirable: >or= 60 mg/dL Low: <40 mg/dL Literature References: 1. Expert Panel on Integrated Guidelines for Cardiovascular Health and Risk Reduction in Children and Adolescents. Pediatrics 2011;128:S213 2. NCEP Expert Panel. Circulation 2004;110:227 Current Interpretive Data was last revised on 2017. LDL, calculated 92 <=129 mg/dL GENEVIEVE FONSECA ([place]) Comment: Interpretive Data Ages < or = 19 years Acceptable: <110 mg/dL Borderline high: 110-129 mg/dL High: >or= 130 mg/dL Ages > or = 20 years Optimal: <100 mg/dL Near optimal: 100-129 mg/dL Borderline high: 130-159 mg/dL High: >160 mg/dL Literature References: 1. Expert Panel on Integrated Guidelines for Cardiovascular Health and Risk Reduction in Children and Adolescents. Pediatrics 2011;128:S213 2. NCEP Expert Panel. Circulation 2004;110:227 Current Interpretive Data was last revised on 2017. Non-HDL Cholesterol 139 mg/dL GENEVIEVE FONSECA ([place]) Comment: Interpretive Data Ages < or = 19 years Acceptable: <120 mg/dL Borderline high: 120-144 mg/dL High: >145 mg/dL Ages > or = 20 years When triglycerides are >200 mg/dL, Non-HDL cholesterol is a secondary target of therapy with treatment goals that are 30 mg/dL greater than the LDL cholesterol target. Literature References: 1. Expert Panel on Integrated Guidelines for Cardiovascular Health and Risk Reduction in Children and Adolescents. Pediatrics 2011;128:S213 2. NCEP Expert Panel. Circulation 2004;110:227 Current Interpretive Data was last revised on 2017. Chol/HDL ratio 5 MARTINEZ FONSECA ([place]) Blood 11/17/2020 10:4 8 AM CDT 11/17/2020 11:20 AM CDT Carla Harrell SPRAY GUN REPAIRER LAB BLOOD ORDERABLES Final R esult GENEVIEVE FONSECA ([place]) 1 [facility] [place] [address] * COLONOSCOPY (10/22/2020 10:34 AM CDT) Anatomical Region Laterality Modality Other Narrative Procedure Note Yunior Barber MD - 10/22/2020 10:34 AM CDT [facility] Patient Name: Dipika Tran Procedure Date: 10/22/2020 10:34 AM Date of : 1970 Admit Type: Outpatient Age: 50 Gender: Female Attending MD: Yunior Barber M.D. Room: [facility] 2 Note Status: Finalized Patient Profile: Refer to note in patient chart for documentation of history and physical. Procedure: Colonoscopy Indications: Last colonoscopy: 2014 Referring MD: Matilde Goddard MD Providers: Yunior Barber M.D. Impression: - Preparation of the colon was unsatisfactory. - Hemorrhoids found on perianal exam. - Diverticulosis in the sigmoid colon, in the descending colon, in the transverse colon and inthe ascending colon. - The examination was otherwise normal. - No specimens collected. Recommendation: - Discharge patient to home. - Resume previous diet. - Continue present medications. - Repeat colonoscopy in 2 years for surveillance.this due to hi risk status and todays poor prep - Return to primary care physician as previously scheduled. Medicines: Propofol per Anesthesia Complications: No immediate complications. Estimated Blood Loss: Estimated blood loss: none. Procedure: Pre-Anesthesia Assessment: - This assessment was completed [Time ofAssessment] prior to the administration of sedation. The benefits, risks and alternatives of theprocedure and sedation were discussed and informed consentwas obtained. All questions were answered. Please referto the signed informed consent document in the medical record. The bowel preparation used was Miralax via single dose instruction. The bowel preparation used was bisacodyl tablets via single dose instruction.The scope was passed under direct vision. TheColonoscope [id number] was introduced through the anus and advanced to the the cecum, identified by appendiceal orifice and ileocecal valve. The colonoscopy was performed without difficulty. The patient tolerated the procedure well. The qualityof the bowel preparation was unsatisfactory and 30 percent obscured. Findings: Hemorrhoids were found on perianal exam. Multiple small and large-mouthed diverticula were found in thesigmoid colon, descending colon, transverse colon and ascending colon. The exam was otherwise without abnormality. Electronically signed by Yunior Barber M.D. Yunior Barber M.D. 10/22/2020 11:43:24 AM Number of Addenda: 0 Note Initiated On: 10/22/2020 10:34 AM Procedure Code(s): --- Professional --- 53510, Colonoscopy, flexible; diagnostic, including collection of specimen(s) by brushing or washing, when performed (separateprocedure) Diagnosis Code(s): --- Professional --- K57.30, Diverticulosis of large intestine without perforation orabscess without bleeding K64.9, Unspecified hemorrhoids CPT copyright 2019 [place]. All rights reserved. The codes documented in this report are preliminary and upon equipment validation engineer reviewmay be revised to meet current compliance requirements. Recognized by the [place] [employer] for promoting quality in endoscopy Yunior Barber MD ENDOSCOPY PROCEDURES Final Re sult from Last 3 Months or Most Recently Relevant to Health Maintenance Insurance [facility] Advance Directives For more information, please contact: [phone] * Full Code (Latest Code Status on File) Date Activated Date Inactivated Comments 11/20/2020 10:55 AM 11/20/2020 4:37 PM * Full Code Date Activated Date Inactivated Comments 10/22/2020 10:43 AM 10/22/2020 4:47 PM * Full Code Date Activated Date Inactivated Comments 10/22/2020 10:43 AM 10/22/2020 10:43 AM * Full Code Date Activated Date Inactivated Comments 10/20/2020 10:09 AM 10/20/2020 2:59 PM Care Teams Scout Executive Relationship Specialty Start Date End Date Unknown, Notinfile PCP - General 04/03/23
--- OUTSIDE RECORDS SUMMARY | 2024-04-02 11:52 | XMS_ITS | Encounter Summary ---
Author Organization [facility] Address [address] [place] [address] Care Team Providers Care Operating System Designer Name Role Phone Meme Samuel RN Unavailable Unavailable Omar Delarosa MD, [facility] Primary Care Prov ider Adelina Trinidad DO Unavailable Encounter Details Date Type Department Care Team (Late st Contact Info) Description 03/07/2022 [facility] Outpatient Visit [facility] Orthopedics - Radiology [address] [place] [address] [place] [address] Document, Scanned Social History Tobacco Use Types Packs/Day Years Used Date Smoking Tobacco: Every Day Cigarettes Smokeless Tobacco: Never Comments:STOP 3 DAYS BEFORE SURGERY Alcohol Use Standard Drinks/Week Comments No 0 (1 standard drink = 0.6 oz pur e alcohol) Sex and Gender Information Value Date Recorded Sex Assigned at Female 01/11/2022 4:28 AM SPEAKER MOUNTER Gender Identity Female 01/11/2022 4:28 AM SPEAKER MOUNTER Sexual Orientation Straight 01/11/2022 4: 28 AM SPEAKER MOUNTER COVID-19 Exposure Response Date Recorded In the last 10 days, have yo u been in contact with someone who was confirmed or suspected to have Coronavirus/COVID-19? No / Unsure 03/03/2022 1:05 PM SPEAKER MOUNTER documented as of this encounter Functional Status Functional Status Response Date of Assess ment Is person deaf or have serious hearing difficult y? No 12/31/2021 Is person blind or have serious difficulty seein g? No 12/31/2021 Does person have serious dif ficulty walking/climbing stairs? No 12/31/2021 Does person have difficulty dressing/bathing? No 12/31/2021 Does person have difficulty doing errands alone? No 12/31/2021 Cognitive Status Response Date of Assessm ent Does person have difficulty concentrating/remembering/making decisions? No 12/31/2021 documented as of this encounter Plan of Treatment Not on file documented as of this encounter Visit Diagnoses Not on filedocumented in this encounter Care Teams Operating System Designer Relationship Specialty [place] [address] [place] [address] PCP - General Family Medicine 02/09/22 Meme Samuel, RN Registered Nurse 02/06/17 Adelina Trinidad DO [address] [facility] [address] [place] [address] Rheumatology 07/07/22 documented as of this encounter
--- OUTSIDE RECORDS SUMMARY | 2024-04-02 11:52 | XMS_ITS | Clinical Summary ---
Author Organization [facility] Address [address] [place] [address] Care Team Providers Care Hog Cutter Name Role Phone Unknown, Notinfile Primary Care [...] (10/20/2020): Added automatically from request for surgery [id number] Back pain with left-sided sciatica 10/19/2020 Diverticulosis 09/13/2020 Overview (09/13/2020): Added automatically from request for surgery [id number] Family history of colon cancer in mother 021 Overview (09/13/2020): Added automatically from request for surgery [id number] Hx of colonic polyps 09/13/2020 Overview (09/13/2020): Added automatically from request for surgery [id number] Diverticulosis of colon 09/11/2020 Assessment & Plan (09/11/2020 1:48 PM CDT): Colonoscopy and then recap in office Carpal tunnel syndrome of left wrist 06/30/2020 Tardive dyskinesia 04/28/2020 Complex dental caries 11/28/2019 Overview (11/28/2019): Added automatically from request for surgery [id number] Essential hypertension, malignant 11/28/2019 Overview (11/28/2019): Added automatically from request for surgery [id number] Breath, shortness 11/28/2019 Overview (11/28/2019): Added automatically from request for surgery [id number] Severe diabetes mellitus (CMS/HCC) 11/28/2019 Overview (11/28/2019): Added automatically from request for surgery [id number] Posttraumatic stress disorder 11/28/2019 Overview (11/28/2019): Added automatically from request for surgery [id number] Anxiety 11/28/2019 Overview (11/28/2019): Added automatically from request for surgery [id number] Infection following a procedure, subsequent enco unter [...] pain with sciatica 03/04/2015 Cervical radiculopathy 03/04/2015 Surgical History Surgery Date Site/Laterality Comments SECTION X 5-- Last 2001 CARPAL TUNNEL RELEASE 2017, 2011 Bilateral 2017 Right; 2012 Bilateral ECTOPIC SURGERY 02/21/2004 - 02/19/2005 ESSURE TUBAL LIGATION 02/21/2004 - 02/19/2005 SECTION COLONOSCOPY Multiple-- Last 2014 COLONOSCOPY greater than 3 years Alexandre Medical History Medical History Date Comments Hypertension Dxd 2011 Depression Depression Diabetes mellitus (HCC) Dxd 2001 Neuropathy (CMS/HCC) Bipolar 1 disorder (HCC) Schizophrenia ([facility]) History of section 5 C- Sections Obesity History of MRSA infection 2017 wound dehiscence following Right carpal tunnel surgery History of posttraumatic str ess disorder (PTSD) Smoker Claustrophobia Smoking Poor circulation Peripheral neuropathy Family History Medical History Relation Name Comments Hypertension Father Hypertension; Other Maternal Grandmother Psyohia tric Disease; Breast cancer Mother Cancer Mother Cancer, unknown ; Colon cancer Mother Diabetes Other Stroke Other Anesthesia problems Neg Hx Relation Name Status Comments Father Maternal Grandmother Mother Other Social History Tobacco Use Types Packs/Day Years Used Date Smoking Tobacco: Every Day Cigarettes Smokeless Tobacco: Never Alcohol Use Standard Drinks/Week Comments Yes 0 (1 standard drink = 0.6 oz pur e alcohol) 4 per month-- Rare Comments No Sex and Gender Information Value Date Recorded Sex Assigned at Not on file Legal Sex Female 1:20 AM 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 Gender Identity Not on file Sexual Orientation Not on file Obstetrics History Para Term AB IAB SAB Ectopic Multiple Livin g Live Births 16 5 5 Date Outcome GA Total Labor Labor/2nd/3rd Weight Sex Type Anes PTL Courtney A1 A5 Name Clin Term Term Term Term Term Last Filed Vital Signs Vital Sign Reading [...] 07/03/2021 1:14 PM CDT Plan of Treatment Health Maintenance Due Date Last Done Comments Cervical Cancer Screening 1970 Depression Screening 1970 Hepatitis C Screening 1970 Dilated Eye Exam 1970 Foot Exam 1970 Hepatitis B Screening 01/15/1986 Regular Well Visit/Exam 18-64 01/15/1986 Zoster Vaccine (1 of 2) 01/15/2018 Hemoglobin A1C 05/17/2021 11/17/2020, 04/14/2020 Albumin Creatinine Ratio, Urine 11/17/2021 Lipid Panel 11/17/2021 11/17/2020, 03/24, 07/21/2012, Additional history exists DTaP/Tdap/Td Vaccine (2 - Td or Tdap) 11/22/2021 11/23/2011 Breast Cancer Screening-Mammogram 07/03/2022 07/03/2021, 02/20/2020, 05/13/2013, Additional history exists eGFR 07/03/2022 07/03/2021, 10/22, 04/14/2020, Additional history exists Influenza Vaccine (#1) 2023 9, 04/16/2018, 11/13/2017, Additional history exists Colon Cancer Screening-Colonoscopy 10/22/2030 10/22/2020 Pneumococcal vaccine <65 (3 of 3 - PPSV23 or PCV20) 01/15/2033 08/17/2016, 08/29/2013 Colon Cancer Screening-CT Colonography Discontinued 10/22/2020 Colon Cancer Screening-DNA Stool Discontinued 10/23/19 Colon Cancer Screening-FIT Discontinued 10/22/2020 Colon Cancer Screening-Sigmoidoscopy Discontinued 10/22/2020 Procedures Procedure Name Priority Date/Time Associated Diagnosis Comments EGFR STAT 07/03/2021 4:41 PM CDT SCREENING MAMMOGRAM BILATERAL W EDER Schedule Routine, Read Routine (OP Routine) 07/03/2021 [...] 4:41 PM CDT 07/03/2021 4:43 PM CDT us Shawn Hernandez NP LAB BLOOD ORDERABLES Final Result [facility]ON[facility] [place]) 1 [facility] [place] [address] * Screening Mammogram Bilateral W Eder (07/03/2021 12:59 PM CDT) Anatomical Region Laterality [...] PM CDT EXAMINATION: SCREENING MAMMOGRAM BILATERAL W EDER ORDERING HEALTHCARE PROVIDER: SELF SCREENING MAMMOGRAM HISTORY: [...] There has been no suspicious interval change. us Self Screening Mammogram IMG MAMMO PROCEDURES Fi nal Result * Albumin Creatinine Ratio, Urine (11/17/2020 11:00 AM CDT) Albumin Ur 30.7 mg/L [facility] ([place]) Comment: Interpretive Data No reference range established. Current interpretive data was last revised 2018. Testing performed by: [facility], [address] [place] [address]., [id number] Creatinine Ur 182.5 mg/dL GENEVIEVE FONSECA ([place]) Comment: Interpretive Data No reference range established. Current interpretive data was last revised 2018. Testing performed by: [facility], [address] [place] [address]., [id number] Albumin Creatinine Ratio, Ur 17 1 - 29 mg/g [facility]EVI[facility]E FONSE[facility] ([place]) Comment:Testing performed by : [address] [id number] Urine 11/17/2020 11:0 0 AM CDT 11/17/2020 2:34 PM CDT Carla Harrell HEADING REPAIRER LAB URINE ORDERABLES Final R esult [facility]ON[facility] ([place]) 1 [facility] [place] [address] * (ABNORMAL) Hemoglobin A1c (11/17/2020 10:48 AM CDT) Hgb A1C 5.8(H) 4.0 - 5.6 % GEN[facility]E FONSE[facility] ([place]) Estimated Average Glucose 120 mg/dL [facility] ([place]) Comment: The ADA recommends reporting an estimated Average Glucose (eAG) with all Hemoglobin A1c results using the equation derived from a study of 507 normal and diabetic adults. Minority populations were underrepresented and children were not included. (Diabetes Care 31:5310-3792, 2008). The eAG is not equivalent to a fasting glucose. Blood 11/17/2020 10:4 8 AM CDT 11/17/2020 11:20 AM CDT Carla Harrell HEADING REPAIRER LAB BLOOD ORDERABLES Final R esult GENEVIEVE [facility] ([place]) 1 [facility] Department [place] [address] * (ABNORMAL) Lipid panel (11/17/2020 10:48 AM [...] 2017. Non-HDL Cholesterol 139 mg/dL [facility]E FONSE[facility] ([place]) Comment: Interpretive Data [...] on 2017. Chol/HDL ratio 5 MARTINEZ FONSE[facility] ([place]) Blood 11/17/2020 10:4 8 AM CDT 11/17/2020 11:20 AM CDT us Carla Harrell HEADING REPAIRER LAB BLOOD ORDERABLES Final R esult [facility]EVIEVE MARIAN ([place]) 1 [facility] Department of Laboratories [place], [place] [id number] * COLONOSCOPY (10/22/2020 10:34 AM CDT) Anatomical Region Laterality Modality Other Narrative Procedure Note Yunior Barber MD - 10/22/2020 10:34 AM CDT [facility] Patient Name: Dipika Tran Procedure Date: 10/22/2020 10:34 AM Date of : 1970 Admit Type: Outpatient Age: 50 Gender: Female Attending MD: Yunior Barber M.D. Room: [facility] ENDOSCOPY ROOM 2 Note Status: Finalized Patient [...] scope was passed under direct vision. TheColonoscope [id number] was introduced through the anus and advanced [...] 10:34 AM Procedure Code(s): --- Professional --- 61377, Colonoscopy, flexible; diagnostic, including collection of specimen(s) by brushing or washing, when performed (separateprocedure) Diagnosis Code(s): --- Professional --- K57.30, Diverticulosis of large intestine without perforation orabscess without bleeding K64.9, Unspecified hemorrhoids CPT copyright 2019 [employer]. All rights reserved. The codes documented in this report are preliminary and upon clothespin drier operator reviewmay be revised to meet current compliance requirements. Recognized by the [employer] for promoting quality in endoscopy Yunior Barber MD ENDOSCOPY PROCEDURES Final Re sult from Last 3 Months or Most Recently Relevant to Health Maintenance Insurance [facility] Advance Directives For more information, please contact: [phone] * Full Code (Latest Code Status on File) Date Activated Date Inactivated Comments 11/20/2020 10:55 AM 11/20/2020 4:37 PM * Full Code Date Activated Date Inactivated Comments 10/22/2020 10:43 AM 10/22/2020 4:47 PM * Full Code Date Activated Date Inactivated Comments 10/22/2020 10:43 AM 10/22/2020 10:43 AM * Full Code Date Activated Date Inactivated Comments 10/20/2020 10:09 AM 10/20/2020 2:59 PM Care Teams Hog Cutter Relationship Specialty Start Date End Date Unknown, Notinfile PCP - General 04/03/23
--- OUTSIDE RECORDS SUMMARY | 2024-04-02 11:53 | XMS_ITS | Data Portability ---
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 Not available 08/25/2020 16:27:55 Plan of Treatment Reminders Order Date Submit Date Provider Last Modified By Organization Details Last Modified Time Details Appointments None recorded. Lab HbA1c (hemoglob in A1c), blood 2020 021 [facility], [address] [place] [address], [facility] [address], [address], 15:12:35 albumin/c reatinine , mass ratio, urine 2020 021 [facility], [address] [place] [address], [facility] 2, [place], [address], 1 15:12:34 CMP, serum or plasma 2020 021 [facility], [address] [facility], [facility] [address], [place], [address], 1 15:12:34 CBC w/ auto diff 2020 021 [facility], [address] [facility], [facility] 2, [place], [address], 15:12:34 lipid panel, serum 2020 021 [facility], [address], [address], [place], [address], 15:12:35 CBC 2020 021 [facility], [address], [address], [place], [address], 15:12:34 HbA1c (hemoglob in A1c), blood 2020 022 [facility], [address], [address], [place], [address], 03:10:52 albumin/c reatinine , mass ratio, urine 2020 022 [facility], [address], [address], [place], [address], 03:10:52 CMP, serum or plasma 2020 022 [facility], [address], [address], [place], [address], 03:10:53 CBC 2020 022 [facility], [address], [address], [place], [address], 03:10:53 lipid panel, serum 2020 022 [facility], [address], [address], [place], [address], 03:10:53 urinalysi s, dipstick 2021 DANIELLE In-Office Order, Internal Use Only DO Not Attach Compendium DO Not Attach Compendium, Do Not Delete/merge, [id number] 15:34:00 culture, urine 2021 022 [facility], [address] [facility], [facility], [place], [address], 11:55:43 HbA1c (hemoglob in A1c), blood 2021 022 In-Office Order, Internal Use Only DO Not Attach Compendium DO Not Attach Compendium, Do Not Delete/merge, [id number] 11:55:36 HIV 1 + 2, meaningfu l use set 2024 025 [facility], [address] [facility], [facility], [place], [address], 5 11:16:49 hepatitis B surface Ab, qualitati ve, serum 2024 025 [facility], [address] [place] [address], [facility] 2, [place], [address], 5 11:16:49 HBsAg (hepatiti s B surface Ag), EIA, serum 2024 025 [facility], [address] [facility], [facility] 2, [place], [address], 5 11:16:49 RPR (rapid plasma reagin), serum 2024 025 [facility], [address] [place] [address], [facility] 2, [place], [address], 5 11:16:49 Hepatitis C IgG Ab, qual, serum 2024 025 [facility]eryma [facility], [address] [facility], [facility] 2, [place], [address], 5 11:16:49 vaginal pathogens panel, ALMITA+probe , vaginal fluid 2024 025 [facility], [address] [facility], [address], [place], [address], 5 06:37:27 Referral gastroent erologist referral - Please call patient to schedule - Thank you 2020 DANIELLE Barber MD, [address] [facility] [address], [address], [place], [address], 15:14:17 pain managemen t referral - Please contact patient to schedule appointme nt. Thank you 2020 021 tonja Ferris MD, [address] [facility], [address], [place], [address], 2 16:43:03 orthopedi c surgeon referral - Please contact patient to schedule appointme nt. Thank you 2020 DANIELLE Hernandez PA-C, [address] [facility] , [address], [place], [address], 2 11:53:46 Procedures None recorded. Surgeries None recorded. Imaging None recorded. Medication Orders Cipro 500 mg tablet [address]/Pharmacy #[id number], 1 [place], [address], 1 14:43:28 Flagyl 500 mg tablet [address]/Pharmacy #[id number], 1 [place], [address], 1 14:44:43 tramadol 50 mg tablet 2020 021 [facility]/Pharmacy #[id number], 1 [place], [address], 2 14:16:27 omeprazol e 20 mg capsule,d elayed release 2020 021 [facility]/Pharmacy #6833, 1 [place], [address], 1 15:57:11 tramadol 50 mg tablet 2020 [facility] 1 [place], [address], 2 14:16:27 omeprazol e 20 mg capsule,d elayed release 2020 [facility] 1 [place], [address], 15:22:41 [facility]bid 100 mg capsule [facility] 1 [place], [address], 2 08:26:19 acetamino phen 300 mg-codein e 30 mg tablet [facility] 1 [place], [address], 5 14:03:49 clobetaso l 0.05 % scalp solution 2021 [facility] 1 [place], [address], 5 14:04:30 diclofena c sodium 75 mg tablet,de layed release 2021 [facility] 1 [place], [address], 2 11:55:45 pregabali n 50 mg capsule 2021 [facility] 1 [place], [address], 2 14:18:41 losartan 100 mg tablet 2021 022 tamar [facility]/Pharmacy #[id number], [address] [facility], [place], [address], 14:06:57 Patient TargetsNo targets recorded. Patient Instructions Encounter Date Encounter Id Patient Instructions Last Modified By Organization Details Last Modified Time 08/25/2020 [id number] sore throat: car e instructions Not available 08/25/2020 16:24:57 Take all antibio tics prescribed to you. If any fever or increase in pain, call/return to office. Not available 08/25/2020 16:28:01 f/u 2 months DWP barriers to care: none Not available 08/25/2020 16:28:14 10/27/2020 [id number] diverticulosis diet Not avail able 10/27/2020 23:18:06 high fiber diet Not available 10/27/2020 23:18:06 deciding about u sing medicines to quit smoking Not available 10/27/2020 15:56:53 Quitting Tobacco : Care Instructions Not available 10/27/2020 15:56:52 learning about t ype 2 diabetes Not available 10/27/2020 15:56:53 type 2 diabetes: care instructions Not available 10/27/2020 15:56:52 When You Want to Lose Weight: Care Instructions Not available 10/27/2020 15:56:52 high cholesterol : care instructions Not available 10/27/2020 15:56:52 chronic obstruct darlene pulmonary disease (COPD): care instructions Not available 10/27/2020 15:56:52 learning about c opd and how to prevent lung infections Not available 10/27/2020 15:56:52 A healthy lifest yle: care instructions Not available 10/27/2020 15:59:44 learning about h igh blood pressure Not available 10/27/2020 15:56:53 Continue to work on diet and decrease A1C to < 7 with fasting glucose 100. Need to see eye dr. each year for dilated eye exam. Increase activity level to get exercise most days of the week. Work on eating more fresh fruit, veggies and lean protein and less packaged foods. Cut back on the fatty foods, add fish oil or omega three fatty acids; red yeast rice may also help. Drink more water! Low salt diet. Take all medications as prescribed. Keep appointments with PCP and all specialists. Not available 10/27/2020 15:58:27 f/u 3 months DWP barriers to care: none Not available 10/27/2020 16:00:10 01/29/2021 [id number] diverticulosis diet Not avail able 01/29/2021 15:22:20 high fiber diet Not available 01/29/2021 15:22:19 learning about t ype 2 diabetes Not available 01/29/2021 15:22:20 type 2 diabetes: care instructions Not available 01/29/2021 15:22:21 When You Want to Lose Weight: Care Instructions Not available 01/29/2021 15:22:21 chronic obstruct darlene pulmonary disease (COPD): care instructions Not available 01/29/2021 15:22:21 learning about c opd and how to prevent lung infections Not available 01/29/2021 15:22:20 learning about h igh blood pressure Not available 01/29/2021 15:22:20 influenza (flu) vaccine: care instructions Not available 01/29/2021 15:22:20 deciding about u sing medicines to quit smoking Not available 01/29/2021 15:22:20 Quitting Tobacco : Care Instructions Not available 01/29/2021 15:22:21 carpal tunnel syndrome: care instructions Not available 01/29/2021 15:22:20 carpal tunnel syndrome: exercises Not available 01/29/2021 15:22:20 high cholesterol : care instructions Not available 01/29/2021 15:22:21 Continue to work on diet and decrease A1C to < 7 with fasting glucose 100. Need to see eye drMando each year for dilated eye exam. Increase activity level to get exercise most days of the week. Work on eating more fresh fruit, veggies and lean protein and less packaged foods. Cut back on the fatty foods, add fish oil or omega three fatty acids; red yeast rice may also help. Drink more water! Low salt diet. Take all medications as prescribed. Keep appointments with PCP and all specialists. Not available 01/29/2021 14:59:07 f/u 3 months DWP barriers to care: none Not available 01/29/2021 14:59:09 05/12/2021 [id number] painful urinatio n (dysuria): care instructions Not available 05/12/2021 11:55:36 learning about t ype 2 diabetes Not available 05/12/2021 11:55:36 type 2 diabetes: care instructions Not available 05/12/2021 11:55:36 gastroesophageal reflux disease (GERD): care instructions Not available 05/12/2021 11:55:37 learning about h igh blood pressure Not available 05/12/2021 11:55:36 Continue to work on diet and decrease A1C to < 7 with fasting glucose 100. Needs to see eye dr. Increase activity level to get exercise most days of the week. Work on eating more fresh fruit, veggies and lean protein and less packaged foods. Take all medications as prescribed. Keep appointments with PCP and all specialists. Cut back on the fatty foods, add fish oil or omega three fatty acids; red yeast rice may also help. Drink more water! Low salt diet. Not available 05/12/2021 11:55:48 f/u 3 months DWP barriers to care: none Not available 05/12/2021 11:56:00 Reason for Referral Psychologist Experimental Referral for Diverticulosis of colon Please call patient to schedule - Thank you Referring Physician: Family Abigail Medicine, Encounter Date: 08/25/2020 Pain Management Referral for Degeneration of lumbar intervertebral disc Please contact patient to schedule appointment. Thank you Referring Physician: Family [facility]ail Medicine, Encounter Date: 10/27/2020 Orthopedic Surgeon Referral for Carpal tunnel syndrome of left wrist Please contact patient to schedule appointment. Thank you Referring Physician: Carla Harrell, Family Medicine, Encounter Date: 01/29/2021 Results Created Date Observation Date Name Description Value Unit Range Abnormal Flag Note LastModifiedBy Organization Detail LastModifiedTime 06/04/19 22 06/03/2021 COLOG UARD cologuard result Cancel led - Order d not applic able Not Available [facility] (Cologuard Orders Only) [address], [place], [address], 06/03/2021 06:33:45 05/13/19 22 05/12/2021 urina lysis , dipst ick Leukocytes Negati ve Not Available In-Office Order Internal Use Only DO Not Attach Compendium DO Not Attach Compendium, Do Not Delete/merge, [id number] 05/12/2021 11:46:42 05/13/19 22 05/12/2021 urina lysis , dipst ick Nitrite positi ve Not Available In-Office Order Internal Use Only DO Not Attach Compendium DO Not Attach Compendium, Do Not Delete/merge, 05/12/2021 11:46:42 05/13/19 22 05/12/2021 urina lysis , dipst ick Urobilinogen 1 Not Available In-Of fice Order Internal Use Only DO Not Attach Compendium DO Not Attach Compendium, Do Not Delete/merge, 05/12/2021 11:46:42 05/13/19 22 05/12/2021 urina lysis , dipst ick Protein Trace Not Available In-Office Order Internal Use Only DO Not Attach Compendium DO Not Attach Compendium, Do Not Delete/merge, 05/12/2021 11:46:42 05/13/19 22 05/12/2021 urina lysis , dipst ick pH 7.0 Not Available In-Office Order Internal Use Only DO Not Attach Compendium DO Not Attach Compendium, Do Not Delete/merge, 05/12/2021 11:46:42 05/13/19 22 05/12/2021 urina lysis , dipst ick Blood Hemoly zed: Trace Not Available In-Office Order Internal Use Only DO Not Attach Compendium DO Not Attach Compendium, Do Not Delete/merge, 05/12/2021 11:46:42 05/13/19 22 05/12/2021 urina lysis , dipst ick Specific [place] 1.010 Not Available In-Off ice Order Internal Use Only DO Not Attach Compendium DO Not Attach Compendium, Do Not Delete/merge, 05/12/2021 11:46:42 05/13/19 22 05/12/2021 urina lysis , dipst ick Ketone Negati ve Not Available In-Office Order Internal Use Only DO Not Attach Compendium DO Not Attach Compendium, Do Not Delete/merge, 05/12/2021 11:46:42 05/13/19 22 05/12/2021 urina lysis , dipst ick Bilirubin Negati ve Not Available In-Office Order Internal Use Only DO Not Attach Compendium DO Not Attach Compendium, Do Not Delete/merge, 05/12/2021 11:46:42 05/13/19 22 05/12/2021 urina lysis , dipst ick Glucose Negati ve Not Available In-Office Order Internal Use Only DO Not Attach Compendium DO Not Attach Compendium, Do Not Delete/merge, 05/12/2021 11:46:42 05/13/19 22 05/12/2021 urina lysis , dipst ick Appearance Slight ly Cloudy Not Available In-Office Order Internal Use Only DO Not Attach Compendium DO Not Attach Compendium, Do Not Delete/merge, 05/12/2021 11:46:42 05/13/19 22 05/12/2021 urina lysis , dipst ick Color Dark Yellow Not Available In-Office Order Internal Use Only DO Not Attach Compendium DO Not Attach Compendium, Do Not Delete/merge, 05/12/2021 11:46:42 05/13/19 22 05/12/2021 HbA1c (hemo globi n A1c), blood HbA1c 5.8 Not Available In-Office Order Internal Use Only DO Not Attach Compendium DO Not Attach Compendium, Do Not Delete/merge, 05/12/2021 11:50:23 03/19/19 25 03/20/2024 NUA B VAGIN ITIS PLUS (VG+) atopobium vaginae HIGH - 2 score abnormal Not Available [facility] ([facility]) [address] [place], [address], 03/21/2024 06:37:27 03/19/1903/20/2024 NUA B VAGIN ITIS PLUS (VG+) bvab 2 HIGH - 2 score abnormal Not Available [facility] ([facility]) [address] [facility], [place], [address], 03/21/2024 06:37:27 03/19/1903/20/20[facility] megasphaera 1 HIGH - 2 score abnormal Calcu late total score by addin g the 3 indiv idual bacte rial vagin osis (BV) marke r score s toget her. Total score is inter prete d as follo ws: Total score 0-1: Indic ates the absen ce of BV. Total score 2: Indet ermin ate for BV. Addit ional clini rambo data shoul d be evalu ated to estab elian a diagn osis. Total score 3-6: Indic ates the prese nce of BV. Not Available [facility] ([facility]) [address] [place], [address], 03/21/2024 06:37:27 03/19/1903/20/2024 NUA B VAGIN ITIS PLUS (VG+) luis albicans, ALMITA NEGATI VE negati ve Not Available [facility] ([facility]) [address] [place], [address], 03/21/2024 06:37:27 03/19/19 25 03/20/2024 NUA B VAGIN ITIS PLUS (VG+) luis glabrata, ALMITA NEGATI VE negati ve Not Available [facility] ([facility]) [address] [place], [address], 03/21/2024 06:37:27 03/19/1903/21/2024 NUA B VAGIN ITIS PLUS (VG+) trich vag by ALMITA NEGATI VE negati ve Not Available [facility] ([facility]) [address] [facility], [place], [address], 03/21/2024 06:37:27 03/19/19 25 03/21/2024 NUA B VAGIN ITIS PLUS (VG+) chlamydia trachomatis, ALMITA NEGATI VE negati ve Not Available [facility] ([facility]) [address] [facility], [place], [address], 03/21/2024 06:37:27 03/19/1903/21/2024 NUA B VAGIN ITIS PLUS (VG+) neisseria gonorrhoeae, ALMITA NEGATI VE negati ve Not Available [facility] ([facility]) [address] [facility], [place], [address], 03/21/2024 06:37:27 07/07/19 22 07/03/2021 MAMMO , scree nic, digit al, bilat eral No observ ation record ed. [email or web address] [facility] [address], [place], [address], 07/07/2021 10:31:05 Result Notes None recorded. Problems Name Problem SNOMED Code Status Onset Date Resolution Date Notes Provider Name and Address Organization Details Recorded Time Lumbago with sciatica 381758751 Active 2015 Not Available [facility] 0 10:24:13 Diabetic peripher al neuropat hy 761128918 Active 2015 Not Available [facility] 0 10:24:13 Neck pain 83487159 Active 2016 Not Available [facility] 0 10:24:13 Cervical radiculo alistair 04790230 Active 2015 Not Available [facility] 0 10:24:13 Disorder of wrist 177415476 Active 2016 Not Available [facility] 0 10:24:13 Meralgia paresthe bora 61569914 Active 2015 Not Available [facility] 0 10:24:14 Anxiety 87940217 Completed 201506/03/2020 Carla Harrell APN, FNP-C Attn: Accounting ,[address] [facility], [place], [address] , [place] 1 15:43:43 Fibromya lgia 408141331 Active 2015 [facility] Available [facility] 0 10:24:14 Carpal tunnel syndrome of right wrist 06966003916 9108 Active 2016 Not Available [facility] 0 10:24:14 Pronator syndrome 161529868 Active 2016 Not Available [facility] 0 10:24:14 Lumbago with sciatica 474439560 Active 2017 [facility] Available [facility] 0 10:24:13 Anxiety disorder 805880812 Active 2017 [facility] Available [facility] 0 10:24:13 Postoper ative infectio n 56839661 Completed 201706/03/2020 Carla Harrell APN, FNP-C Attn: Accounting ,[address] [facility], [place], [address] , [place] 1 15:44:05 Depressi ve disorder 36271111 Active 2020 Carla Harrell APN, FNP-C Attn: Accounting ,[address] [facility], [place], [address] , [place] 1 15:01:45 Gastroes ophageal reflux disease without esophagi tis 082587824 Active 2020 Carla Harrell APN, FNP-C Attn: Accounting ,[address] [facility], [place], [address] , [place] 1 15:50:34 Obesity 762001140 Active 2020 Carla Harrell APN, RECRUITING COORDINATOR-C Attn: Accounting ,[address] [facility], [place], [place], [address] [place] [address] , [place] [facility] 1 15:59:58 Divertic ulosis of colon 815197561 Active 2020 Carla Harrell APN, RECRUITING COORDINATOR-C Attn: Accounting ,[address] [facility], [place], [place], [address] [place] [address] , [place] [facility] 1 23:17:39 Carpal tunnel syndrome of left wrist 32416457992 9102 Active 2020 Carla Harrell APN, RECRUITING COORDINATOR-C Attn: Accounting ,[address] [place], [place], [address] [place] [address] , [facility] - [facility] 1 15:21:46 Bronchit is 80970038 Completed 02/08/2016 Ximena Ward PA-C Attn: Accounting ,[address] [place], [place], [address] [place] [address] , [facility] - [facility] 6 14:01:55 Lumbar radiculo alistair 025981527 Active seeing pain mgmt Not Available [facility] 0 10:24:13 Urinary tract infectio us disease 57652717 Completed 02/08/2016 Ximena Ward PA-C Attn: Accounting ,[address] [place], [place], [address] [place] [address] , [place] 6 14:02:43 [facility] hyperten malvin 42858774 Active Not Available [facility] 0 10:24:13 Type 2 diabetes mellitus 93053161 Active Not Available [facility] 0 10:24:13 Hyperlip idemia 66210023 Active Not Available [facility] 0 10:24:14 Neuropat hy due to diabetes mellitus 866423083 Active Not Available [facility] 0 10:24:13 Degenera tion of lumbar interver tebral disc 69922966 Active 08/2015 Lumbar injectio n from Dr. Pollock Not Available [facility] 0 10:24:13 Tobacco user 204478649 Active Not Available [facility] 0 10:24:13 Schizoph grace 91232771 Active Not Available [facility] 0 10:24:13 Bipolar disorder 42263555 Active Not Available [facility] 0 10:24:13 Posttrau matic stress disorder 85640022 Active Not Available [facility] 0 10:24:13 Chronic obstruct darlene pulmonar y disease 60562051 Active Not Available [facility] 0 10:24:13 Acute bronchit is 61805127 Completed 02/08/2016 Ximena Ward PA-C Attn: Accounting ,[address] [place], [address] , [facility] - [facility] 6 14:01:46 Morbid obesity 681895615 Active Not Available [facility] 0 10:24:13 Bacteria l vaginosi s 883127750 Completed 02/08/2016 Ximena Ward PA-C Attn: Accounting ,[address] [place], [address] , [place] [facility] 6 14:02:36 Disorder of vitamin D 276787506 Active 2016 Not Available [facility] 0 10:24:13 Tobacco dependen ce syndrome 51984710 Active 2016 Not Available [facility] 0 10:24:13 Pain in right thumb 01525377358 44896 Completed 201601/16/2018 Carla Harrell APN, RECRUITING COORDINATOR-C Attn: Accounting ,[address] [place], [address] , [place] 8 16:47:26 Notes:[facility], mission and discharge is 10/09-DX: Principal Lumbar radiculopathy. Problem Notes None recorded. Procedures Surgical History Date Name Laterality Status Provider Name and Address Organization Details Recorded Time 4 total replacement of hip completed Sahra Parker [place] 03/19/2024 14:14:44 2 Date of Last Mammogram completed Sahra Parker [place] - [facility] 03/19/2024 14:10:49 0 Date of Last Pap Smear completed Sahra Parker [place] 11/26/2019 12:09:11 7 Carpal tunnel surgery completed Betsy Saeed [place] - [facility] 10/14/2019 14:01:56 Tubal Ligation completed Jalyn Dahl [facility] 04/16/2014 11:56:56 Dilation and Curettage completed Jalyn Dahl [facility] 04/16/2014 11:56:56 Caesarean Section completed Sahra Parker [place] - [facility] 05/06/2015 10:47:39 Imaging Results Imaging Date Name Status LastModified by Organiz ation Details LastModified Time 07/03/2021 MAMMO, screening, digital, bilateral completed [email or web address] [facility]- [address], [place], [address], 07/07/2021 10:31:05 Procedure Notes None recorded. Medical Equipment None Reported. Allergies Allergen ID Allergen Name Allergen Category Reaction Reaction Severity Criticality Documentation Date Start Date Code Code System Note Provider Name and Address Organization Details Recorded Time 513282 meloxicam medicatio n Not available Not available Not available 02/21/20172015 64212 RxNorm Other react ions and sever ities : 'Swel ling - Mild' . Not Available Not Available Not Available 426410 propranol ol medicatio n other moderate Not available 05/12/2021 8787 RxNorm stoma ch pain Not Available Not Available Not Available 7692 Mobic medicatio n other moderate Not available 01/29/2014 49025 9 RxNorm Not Available Not Available Not Available Medications Name Sig Start Date Stop Date Status Note LastModified by Organization Details LastModified Time Prescript ion - Prior Authoriza tion Request 08/14 completed Not Available Not Available Not Available losartan 50 mg tablet TAKE 2 TABLETS BY MOUTH DAILY 04/24 completed Not Available Not Available Not Available celecoxib 200 mg capsule TAKE 1 CAPSULE BY MOUTH EVERY DAY 05/12 completed Not Available Not Available Not Available penicilli n V potassium 250 mg tablet 11/25 completed Not Available Not Available Not Available fluoxetin e 40 mg capsule 09/27 completed Not Available Not Available Not Available cyclobenz aprine 10 mg tablet TAKE 1 TABLET BY MOUTH THREE TIMES A DAY NEEDED active Not Available Not Available No t Available amoxicill in 500 mg capsule TAKE 1 CAPSULE BY MOUTH EVERY 8 HOURS FOR 14 DAYS 08/17 completed Not Available Not Available Not Available buspirone 5 mg tablet active Not Available Not Available Not Available Qvar 80 mcg/actua tion Metered Aerosol oral inhaler 03/16 completed Not Available Not Available Not Available nystatin 100,000 unit/mL oral suspensio n Take 5 mL 4 times a day by oral route. 08/14 completed Not Available Not Available Not Available gabapenti n 600 mg tablet Take 1 tablet 3 times a day by oral route. 03/16 completed Not Available Not Available Not Available benztropi ne 0.5 mg tablet TAKE 1 TABLET BY MOUTH 2 TIMES A DAY 05/12 completed rx by Dr Colón Not Available Not Available Not Available haloperid ol 5 mg tablet Take 1 tablet twice a day by oral route for 30 days. 03/16 completed Not Available Not Available Not Available quetiapin e 300 mg tablet TAKE 1 TABLET BY MOUTH AT BEDTIME FOR 7 DAYS THEN DECREASE TO 200 MG TABLET 03/06 completed Not Available Not Available Not Available tizanidin e 2 mg tablet TAKE 1 TABLET BY MOUTH 3 TIMES A DAY 06/03 completed pt not taking Not Available Not Available Not Available albuterol sulfate 2.5 mg/3 mL (0.083 %) solution for nebulizat ion INHALE ONE VIAL IN NEBULIZE R THREE TIMES A DAY active Not Available Not Available No t Available divalproe x 250 mg tablet,de layed release 08/14 completed Not Available Not Available Not Available triamcino lone acetonide 0.5 % topical cream APPLY THIN COAT TO AFFECTED AREA TWICE A DAY 08/14 completed Not Available Not Available Not Available azithromy molly 250 mg tablet TAKE 2 TABLETS (500 MG) BY ORAL ROUTE ONCE DAILY FOR 1 DAY THEN 1 TABLET (250 MG) BY ORAL ROUTE ONCE DAILY FOR 4 DAYS 06/03 completed Not Available Not Available Not Available alprazola m 1 mg tablet 12/02 completed Not Available Not Available Not Available nicotine (polacril ex) 2 mg gum CHEW 1 PIECE OF GUM EVERY 2 HOURS NEEDED. 03/19 completed Not Available Not Available Not Available fluconazo le 150 mg tablet active Not Available Not Available Not Available hydrocodo ne 5 mg-acetam inophen 325 mg tablet 06/20 completed Not Available Not Available Not Available metronida zole 0.75 % (37.5 mg/5 gram) vaginal gel Insert 1 applicat orful every day by vaginal route at bedtime for 5 days. 2024 active Not Available Not Available Not Avai lable lisinopri l 20 mg tablet TAKE 1 TABLET BY MOUTH ONCE DAILY 03/16 completed Not Available Not Available Not Available clonazepa m 0.5 mg tablet 08/14 completed Not Available Not Available Not Available gabapenti n 400 mg capsule Take 1 capsule 4 times a day by oral route for 30 days. 09/27 completed Not Available Not Available Not Available quetiapin e 200 mg tablet TAKE 1 TABLET BY MOUTH AT BEDTIME FOR 7 DAYS THEN DECREASE TO 100 MG TABLET 03/06 completed Not Available Not Available Not Available olanzapin e 5 mg tablet 12/19 completed Not Available Not Available Not Available clonazepa m 1 mg tablet active Not Available Not Available Not Available hydroxyzi ne pamoate 50 mg capsule TAKE ONE CAPSULE BY MOUTH 4 TIMES A DAY NEEDED active Not Available Not Available No t Available penicilli n V potassium 500 mg tablet TK 1 T PO BID FOR 10 DAYS 03/06 completed Not Available Not Available Not Available metronida zole 500 mg tablet TAKE 1 TABLET BY MOUTH TWICE A DAY FOR 7 DAYS 01/29 completed Not Available Not Available Not Available propranol ol 60 mg tablet TAKE 1 TABLET BY MOUTH TWICE A DAY-PT MUST KEEP APT active Not Available Not Available No t Available acetamino phen 300 mg-codein e 30 mg tablet TAKE 1 TABLET BY MOUTH FOUR TIMES A DAY NEEDED 03/19 completed Not Available Not Available Not Available ciproflox acin 250 mg tablet Take 1 tablet every 12 hours by oral route for 3 days. active Not Available Not Available No t Available dextromet horphan-g uaifenesi n 10 mg-100 mg/5 mL oral syrup Take 10 mL every 4 hours by oral route as needed. 06/03 completed Not Available Not Available Not Available divalproe x 500 mg tablet,de layed release TAKE ONE TABLET BY MOUTH THREE TIMES A DAY active Not Available Not Available No t Available ciproflox acin 500 mg tablet TAKE 1 TABLET BY MOUTH EVERY 12 HOURS FOR 14 DAYS 01/29 completed Not Available Not Available Not Available sulfameth oxazole 800 mg-trimet hoprim 160 mg tablet TAKE 1 TABLET BY MOUTH EVERY 12 HOURS FOR 7 DAYS 03/19 completed Not Available Not Available Not Available hydrocodo ne 10 mg-acetam inophen 325 mg tablet Take 1 tablet 4 times a day by oral route as needed for 30 days. active Not Available Not Available No t Available aspirin 81 mg tablet,de layed release TAKE 1 TABLET BY MOUTH EVERY DAY 08/28 completed Not Available Not Available Not Available tramadol 50 mg tablet TAKE 1 TABLET B MOUTH TWO TIMES A DAY NEEDED FOR SEVERE PAIN ONLY 05/12 completed Not Available Not Available Not Available quetiapin e 100 mg tablet TKE 1 TABLET BY MOUTH AT BEDTIME FOR 7 DAYS 03/06 completed Not Available Not Available Not Available amantadin e HCl 100 mg capsule TAKE 1 CAPSULE BY MOUTH TWICE A DAY 03/19 completed Not Available Not Available Not Available simvastat in 40 mg tablet TAKE 1 TABLET BY MOUTH EVERY DAY active Not Available Not Available No t Available oxycodone -acetamin ophen 5 mg-325 mg tablet Take 1 tablet every 6 hours by oral route. active Not Available Not Available No t Available alprazola m 0.5 mg tablet 06/03 completed Not Available Not Available Not Available lancets Use as directed 2019 active Not Available Not Available Not Avai lable propranol ol 40 mg tablet TAKE 1 TABLET BY MOUTH THREE TIMES A DAY 01/29 completed increase d to 60 mg Not Available Not Available Not Available gabapenti n 800 mg tablet 09/[address] jaeger Not Available Not Available Not Available dicyclomi ne 20 mg tablet TAKE 1 TABLET BY MOUTH 3 TIMES A DAY BEFORE MEALS active Not Available Not Available No t Available ciproflox acin 0.3 % eye drops Instill 2 drops every 4 hours by ophthalm ic route for 5 days. 09/27 completed Not Available Not Available Not Available OneTouch Ultra Test strips USE TO TEST BLOOD SUGAR ONCE DAILY BEFORE BREAKFAS T active Not Available Not Available No t Available benzonata te 100 mg capsule TAKE 1 CAPSULE BY MOUTH THREE TIMES A DAY NEEDED 06/03 completed Not Available Not Available Not Available cephalexi n 500 mg capsule 09/27 completed Not Available Not Available Not Available simvastat in 20 mg tablet Take one tablet every evening 06/05 completed dose increase d. Not Available Not Available Not Available erythromy molly 5 mg/gram (0.5 %) eye ointment APPLY 1 CM RIBBON INTO THE LOWER CONJUNCT IVAL SAC(S) IN THE AFFECTED EYE(S) BY OPHTHALM IC ROUTE 3 TIMES PER DAY 01/29 completed Not Available Not Available Not Available metformin 1,000 mg tablet TAKE 1 TABLET BY MOUTH TWICE A DAY WITH MEALS- PT MUST KEEP APT 2021 active Not Available Not Available Not Avai lable buspirone 10 mg tablet Take 1 tablet every day by oral route for 30 days. active Not Available Not Available No t Available naproxen 500 mg tablet,de layed release Take 1 tablet twice a day by oral route as needed. 11/13 completed Not Available Not Available Not Available promethaz ine 25 mg tablet 03/16 completed Not Available Not Available Not Available polymyxin B sulfate 10,000 unit-trim ethoprim 1 mg/mL eye drops INSTILL 1 DROP INTO AFFECTED EYE(S) BY OPHTHALM IC ROUTE EVERY 6 HOURS x 7 days 06/03 completed Not Available Not Available Not Available losartan 25 mg tablet TAKE TWO TABLETS BY MOUTH TWO TIMES A DAY 05/12 completed Not Available Not Available Not Available divalproe x 125 mg tablet,de layed release 09/27 completed Not Available Not Available Not Available benztropi ne 1 mg tablet TAKE 1 TABLET BY MOUTH TWICE A DAY 06/03 completed Not Available Not Available Not Available benztropi ne 2 mg tablet Take 1 tablet every day by oral route for 30 days. 03/16 completed Not Available Not Available Not Available omeprazol e 20 mg capsule,d elayed release TAKE 1 CAPSULE BY MOUTH TWICE A DAY active Not Available Not Available No t Available diclofena c sodium 75 mg tablet,de layed release TAKE 1 TABLET BY MOUTH TWICE A DAY active Not Available Not Available No t Available etodolac 400 mg tablet active Not Available Not Available Not Available Tussin DM 10 mg-100 mg/5 mL oral liquid 06/03 completed Not Available Not Available Not Available diclofena c sodium 50 mg tablet,de layed release TAKE 1 TABLET BY MOUTH TWICE A DAY 05/12 completed Not Available Not Available Not Available ergocalci ferol (vitamin D2) 1,250 mcg (50,000 unit) capsule TAKE 1 CAPSULE BY MOUTH ONE TIME PER WEEK active Not Available Not Available No t Available methylpre dnisolone 4 mg tablets in a dose pack TAKE 6 TABLETS ON DAY 1 DIRECTED ON PACKAGE AND DECREASE BY 1 TAB EACH DAY FOR A TOTAL OF 6 DAYS 06/03 completed Not Available Not Available Not Available albuterol sulfate HFA 90 mcg/actua tion aerosol inhaler INHALE TWO PUFFS BY MOUTH EVERY SIX HOURS NEEDED active Not Available Not Available No t Available ketoconaz ole 2 % topical cream APPLY BY TOPICAL ROUTE 2 TIMES EVERY DAY FOR 4 WEEKS TO THE AFFECTED AREA 03/16 completed Not Available Not Available Not Available clobetaso l 0.05 % scalp solution APPLY TO THE AFFECTED SCALP AREA BY TOPICAL ROUTE 2 TIMES PER DAY IN THE MORNING AND EVENING 03/19 completed Not Available Not Available Not Available losartan 100 mg tablet TAKE ONE-HALF TABLET BY MOUTH TWO TIMES A DAY 03/19 completed Not Available Not Available Not Available fluoxetin e 20 mg capsule Take 1 capsule every day by oral route for 30 days. 01/16 completed Not Available Not Available Not Available naproxen 500 mg tablet TAKE 1 TABLET BY MOUTH TWICE A DAY NEEDED active Not Available Not Available No t Available amoxicill in 875 mg-potass ium clavulana te 125 mg tablet 03/09 completed Not Available Not Available Not Available buspirone 15 mg tablet Take 1 tablet every day by oral route. 03/16 completed Not Available Not Available Not Available hydroxyzi ne pamoate 25 mg capsule TAKE ONE CAPSULE BY MOUTH EVERY SIX HOURS NEEDED 11/08 completed Not Available Not Available Not Available nitrofura ntoin monohydra te/macroc rystals 100 mg capsule TAKE 1 CAPSULE BY MOUTH EVERY 12 HOURS FOR 5 DAYS 08/17 completed Not Available Not Available Not Available duloxetin e 30 mg capsule,d elayed release TAKE ONE CAPSULE BY MOUTH EVERY DAY active Not Available Not Available No t Available duloxetin e 60 mg capsule,d elayed release TAKE 1 CAPSULE BY MOUTH EVERY DAY 06/03 completed Not Available Not Available Not Available Flovent HFA 110 mcg/actua tion aerosol inhaler 08/14 completed Not Available Not Available Not Available pregabali n 50 mg capsule TAKE 1 CAPSULE BY MOUTH TWICE A DAY active Not Available Not Available No t Available pregabali n 75 mg capsule 03/06 completed Not Available Not Available Not Available pregabali n 100 mg capsule TAKE 1 CAPSULE BY MOUTH THREE TIMES A DAY active Not Available Not Available No t Available Lyrica 150 mg capsule 11/13 completed Not Available Not Available Not Available losartan 100 mg-hydroc hlorothia zide 12.5 mg tablet Take 1 tablet every day by oral route. active Not Available Not Available No t Available Depakote One at bedtime 09/27 completed 125 mg; rx'd by Tammy Feliz Not Available Not Available Not Available quetiapin e 50 mg tablet 08/14 completed Not Available Not Available Not Available quetiapin e 400 mg tablet 10/13 completed Not Available Not Available Not Available Symbicort 160 mcg-4.5 mcg/actua tion HFA aerosol inhaler TAKE 2 PUFFS BY MOUTH TWICE A DAY IN THE MORNING AND IN THE EVENING 03/19 completed Not Available Not Available Not Available peg 3350 240 gram-elec trolytes 22.72 gram-6.72 g-5.84 g powdr for soln 01/16 completed Not Available Not Available Not Available liragluti de 0.6 mg/0.1 mL (18 mg/3 mL) subcutane ous pen injector INJECT 0.6MG SUBCUTAN EOUSLY ONCE DAILY X 7 DAYS THEN 1.2MG DAILY, NOT TO EXCEED 1.8MG/DA Y active Not Available Not Available No t Available OneTouch Delica Lancets 33 gauge USE TO TEST BLOOD SUGAR ONCE DAILY BEFORE BREAKFAS T active Not Available Not Available No t Available Latuda 40 mg tablet 03/16 completed Not Available Not Available Not Available Latuda 80 mg tablet 10/19 completed Not Available Not Available Not Available Latuda 60 mg tablet 12/19 completed Not Available Not Available Not Available Aerospan 80 mcg/actua tion HFA aerosol inhaler INHALE 2 PUFF(S) TWICE A DAY BY MOUTH. 11/13 completed Not Available Not Available Not Available Ingrezza 40 mg capsule Take 2 capsules every day by oral route. active Not Available Not Available No t Available Qvar RediHaler 80 mcg/actua tion HFA breath activated aerosol INHALE 2 PUFFS BY MOUTH TWICE A DAY 08/14 completed Not Available Not Available Not Available OneTouch Ultra Blue Test Strip USE TO TEST BLOOD SUGAR ONCE DAILY BEFORE BREAKFAS T active Not Available Not Available No t Available OneTouch Ultra2 Meter active Not Available Not Available Not Available Fluzone Quad (PF) 60 mcg (15 mcg x 4)/0.5 mL IM syringe 01/24 completed Not Available Not Available Not Available Fluzone Quad (PF) 60 mcg (15 mcg x 4)/0.5 mL IM syringe 12/02 completed Not Available Not Available Not Available Vitals Date Recorded Body height Provider Name an d Address Organization Details Last Updated DateTime 08/25/2020 165.1 cm Ashutosh Yao [place] - [facility] 021 15:56:57 Date Recorded Body height Body mass index (BMI) Body weight Oxygen saturation Oxygen saturation in Arterial blood by Pulse oximetry Heart rate Respiratory rate Body temperature Systolic blood pressure Diastolic blood pressure Provider Name and Address Organization Details Last Updated DateTime 1 165.1 cm 43.5 kg/m2 361397. 36 g 97 % 97 % 86 /min 16 /min 97.8 [degF] 132 mm[Hg] 82 mm[Hg] Ashutosh Yao [place] - [facility] 1 15:30:36 Date Recorded Body height Body mass index (BMI) Body weight Oxygen saturation Oxygen saturation in Arterial blood by Pulse oximetry Heart rate Respiratory rate Body temperature Systolic blood pressure Diastolic blood pressure Provider Name and Address Organization Details Last Updated DateTime 1 165.1 cm 41.4 kg/m2 517018. 5 g 96 % 96 % 76 /min 16 /min 97.2 [degF] 136 mm[Hg] 94 mm[Hg] Betsy Christophe [facility] 1 14:53:03 Date Recorded Systolic blood pressure Diastolic blood pressure Provider Name and Address Organization Details Last Updated DateTime 01/29/2021 132 mm[Hg] 88 mm[Hg] LAMIN HayesN, RECRUITING COORDINATOR-C Attn: Accounting,[address] [facility], [place], [address], [facility] 01/29/2021 15:10:19 Date Recorded Body height Body mass index (BMI) Body weight Oxygen saturation Oxygen saturation in Arterial blood by Pulse oximetry Heart rate Respiratory rate Body temperature Systolic blood pressure Diastolic blood pressure Provider Name and Address Organization Details Last Updated DateTime 2 165.1 cm 40.9 kg/m2 314577. 72 g 94 % 94 % 106 /min 16 /min 97.3 [degF] 130 mm[Hg] 80 mm[Hg] Betsy Saeed [facility] 2 11:43:07 Date Recorded Body height Body mass index (BMI) Body weight Heart rate Oxygen saturation Oxygen saturation in Arterial blood by Pulse oximetry Body temperature Systolic blood pressure Diastolic blood pressure Provider Name and Address Organization Details Last Updated DateTime 5 165.1 cm 35.5 kg/m2 39149.9 7 g 77 /min 97 % 97 % 98.5 [degF] 139 mm[Hg] 87 mm[Hg] Sahra Parker MA [facility] 5 13:56:51 Social History Question Answer Notes LastModified by Organizat ion Details LastModified Time Tobacco Smoking Status Current Every Day Smoker N[place], [place] - [facility] 01/29/2014 15:47:01 Do You Have An Advance Directive? No Information not available 04/25/2019 What Is Your Level Of Alcohol Consumption? None [email or web address] Information not available 01/29/2014 Are You Blind Or Do You Have Difficulty Seeing? No Information not available 06/03/2020 Is Blood Transfusion Acceptable In An Emergency? Yes [place] Information not available 05/06/2015 What Is Your Level Of Caffeine Consumption? Occasional Green Tea Information not available 10/27/2020 How Much Tobacco Do You Chew? None Information not available 05/06/2015 In The 14 Days Before Symptom Onset, Have You Had Close Contact With A Laboratory-confir med COVID-19 While That Case Was Ill? No Information not available 08/29/2019 In The 14 Days Before Symptom Onset, Have You Had Close Contact With A Person Who Is Under Investigation For COVID-19 While That Person Was Ill? No Information not available 08/29/2019 Have You Been To An Area Known To Be High Risk For COVID-19? No Information not available 08/29/2019 Are You Currently Employed? No Information not available 05/06/2015 Are You Deaf Or Do You Have Serious Difficulty Hearing? No Information not available 06/03/2020 What Type Of Diet Are You Following? REGULAR Information not available 05/06/2015 Which Illicit Or Recreational Drugs Have You Used? No Information not available 05/06/2015 Do You Or Have You Ever Used E-cigarettes Or Vape? Current User Of Electronic Cigarettes Information not available 03/19/2024 Education 2 Year College Information not available 05/06/2015 What Is Your Occupation? Unemployed [email or web address] Information not available 10/14/2019 Are There Any Guns Present In Your Home? No Information not available 04/16/2014 Hard Of Hearing Or Deaf In One Or Both Ears? No Information not available 04/16/2014 Legally Blind In One Or Both Eyes? No Information no t available 04/16/2014 Live Alone Or With Others? With Others Information not available 05/06/2015 Marital Status Informatio n not available 04/16/2014 What Was The Date Of Your Most Recent Tobacco Screening? 03/19/2024 Information not available 03/19/2024 How Many Children Do You Have? 5 Information not available 05/06/2015 Performs Monthly Self-breast Exam? No Information no t available 08/29/2019 Do You Use Protection During Sex? Usually Information not available 03/19/2024 What Is Your Relationship Status? Information not available 03/19/2024 Do You Use Your Seat Belt Or Car Seat Routinely? Yes Information not available 06/03/2020 Seat Belts Used Routinely Yes Information not available 04/16/2014 Are You Sexually Active? Yes Information not available 05/06/2015 Smoke Alarm In Home Yes Information not available 04/16/2014 Do You Have Smoke And Carbon Monoxide Detectors In Your Home? Yes Information not available 06/03/2020 At What Age Did You Start Smoking Tobacco? 39 Information not available 03/19/2024 Are You Passively Exposed To Smoke? Yes Information no t available 06/03/2020 Do You Or Have You Ever Used Smokeless Tobacco? Never Used Smokeless Tobacco Information not available 04/25/2019 How Much Tobacco Do You Smoke? 0.25 PPD 03/19/24 Pt States She Smokes 1/2 Pk Weekly Information not available 03/19/2024 General Stress Level High Information not available 08/29/2019 Do You Feel Stressed (tense, Restless, Nervous, Or Anxious, Or Unable To Sleep At Night)? [id number] Information not available 06/03/2020 Do You Use Any Illicit Or Recreational Drugs? No HX Of Cocaine. Uses Cbd Gummies Information not available 03/19/2024 Do You Use Sunscreen Routinely? No Information not available 04/25/2019 Has Tobacco Cessation Counseling Been Provided? Yes Information not available 03/19/2024 On What Date Was Tobacco Cessation Counseling Provided? 03/19/2024 Information not available 03/19/2024 How Many Years Have You Smoked Tobacco? 20 Information not available 04/16/2014 Do You Or Have You Ever Used Any Other Forms Of Tobacco Or Nicotine? Yes Information not available 06/03/2020 How Many Years Have You Used E-cigarettes Or Vape? 1 Information not available 03/19/2024 Sex: Female Functional Status Question Answer Note LastModified by Organizat ion Details LastModified Time Are you able to care for yourself? Yes Information not available 06/03/2020 What is your exercise level? Occasional Information not available 10/27/2020 Mental Status None recorded. Family History Relationship Description Onset Age of this Age Resolved Age Notes LastModified by Organization Details LastModified Time Mother Depressive disorder [email or web address] Not available 2015 14:47:36 Mother Diabetes mellitus [email or web address] Not available 2015 14:47:36 Mother Malignant tumor of colon 45 [email or web address] Not available 2015 14:47:36 Mother Malignant tumor of breast 43 [email or web address] Not available 2015 14:47:36 Father Heart disease [email or web address] Not available 2015 14:47:36 Father Essential hypertension [email or web address] Not available 14:47:36 Father Malignant tumor of prostate [place] Not available 2015 14:47:36 Father Myelodysplas tic syndrome (clinical) 76 [id number] [email or web address] Not available 14:21:27 Paternal Grandmother Hypertensive disorder [email or web address] Not available 2015 14:47:36 Maternal Grandmother Malignant tumor of pelvis bladde r [email or web address] Not available 10/14/2019 14:19:17 Maternal Grandmother Diabetes mellitus [email or web address] Not available 2015 14:47:36 Paternal Aunt Malignant tumor of breast 68 68 [email or web address] Not available 09/21 14:18:23 Medical History Condition Response Coronary Artery Disease N Other N Atrial Fibrillation N High Blood Pressure Y Breast Cancer N Lung Disease N Depression Y COPD Y Blood Clots N Breast Problem N Anesthesia Complications N Headaches/Migraines Y Anxiety Disorder Y Muscle, Joint, or Bone Problems Y Arthritis Y Infertility N Polyps N Acid Reflux (GERD) Y Cancer N Stroke N ADHD N Endometriosis N High Cholesterol Y Liver Disease N Schizophrenia Y Headaches Y Thyroid Problems N Kidney or Bladder Problems N GI Problems N Acne N Have you had a mammogram in the last yea r? N Eating Disorder N Skin Problems Y Anemia N Heart Attack ([place]) N Diabetes Y Ovarian Cancer N Blood Transfusions N Seizures/Epilepsy N Have you had a colonoscopy in the last 1 0 years? Y Abuse/Domestic Violence N Asthma Y Allergies Y Have you had a PSA blood test in the las t year? N Substance Abuse Y Hepatitis N Heart Disease N Pre-Eclampsia N Heart Failure N Osteoporosis N Gynecological History Statement/Question Response Abnormal Pap N Date of Last Mammogram 07/03/2021 On BCP's at Conception? N STIs/STDs Y HPV Vaccine N Current Control Method Tubal Ligat ion Age at First Child 14 If Post Menopausal, Age at Menopause 48 Sexually Active? Y Menses Monthly N Date of Last Pap Smear 10/14/2019 Sexual Problems? N LMP Approximate Obstetrics History GPAL:G 10 P 5 0 5 5 Type Value Multiple Births 0 Full Term 5 Induced 3 Spontaneous 1 Premature 0 Living 5 Ectopics 1 Total 10 Immunizations Vaccine Type Date Status Note Provider Nam e and Address Organization Details Recorded Time Influenza, split virus, quadrivalent, PF 9 completed Not Available [facility] 07/03/2021 19:41:06 Influenza, split virus, quadrivalent, preservative 9 completed Not Available [facility] 07/03/2021 19:41:06 Influenza, split virus, quadrivalent, PF 0 completed Not Available [facility] 07/03/2021 19:41:06 Influenza, split virus, quadrivalent, preservative 0 completed Not Available [facility] 07/03/2021 19:41:06 Pneumococcal conjugate PCV 13 4 completed Not Available [facility] 07/03/2021 19:41:06 Tdap 2 completed Not Available [facility] 07/03/2021 19:41:06 Influenza, split virus, quadrivalent, preservative 7 completed Not Available [facility] 03/09/2019 02:39:52 pneumococcal polysaccharide PPV23 7 completed Not Available [facility] 03/09/2019 02:46:08 Influenza, split virus, quadrivalent, preservative 7 completed Not Available [facility] 03/09/2019 02:34:26 Influenza, split virus, quadrivalent, preservative 8 completed Not Available [facility] 03/09/2019 02:36:00 Influenza, split virus, trivalent, preservative 4 completed Not Available [facility] 03/09/2019 02:51:03 Influenza, split virus, quadrivalent, PF 1 completed Betsy Saeed null, [place] - [facility] 01/29/2021 16:43:42 Tdap 5 completed JOY PICKARD MD Attn: Accounting,[address], [place], [address], [place] [facility] 03/19/2024 14:47:46 Pneumococcal conjugate PCV20, polysaccharide [id number] conjugate, adjuvant, PF 5 completed JOY PICKARD MD Attn: Accounting,[address], [place], [address], [place] [facility] 03/19/2024 14:47:46 Past Encounters Encounter ID Performer Location Encounter Start Date Encounter Closed Date Diagnosis/Indication Diagnosis SNOMED-CT Code Diagnosis ICD10 Code Diagnosis Note [id number] [facility] (Adult Med) [address] [place] [address] 01/29/2014 14:25:27 01/29/2014 16:34:25 Essential hypertension [id number] well controlled . Continue Medication s Type 2 berta betes mellitus 24610103 well controlled . Last HBA1C was 5.7 on 09/10/13. Continue medication s. Hyperlipidemia 25238451 continue Simvastati n. Repeat the Lipid panel. Neuropathy due to diabetes mellitus 589704172 Patient takes Gabapentin 600 mg po 4 times daily. Degenerati on of lumbar intervertebral disc 26913859 Following Pain management and . Currently on Hydrocodon e prescribed by . Tobacco user 072183472 a dvised patient to quit smoking. Chronic ob structive pulmonary disease 44894719 continue Symbicort and Proair. Needs infl uenza immunization [id number] TEMITOPE Montaño (Adult Med) [address] [place] [address] 04/16/2014 10:41:59 04/16/2014 12:32:17 Bronchitis 13244482 Afebrile.S aturating 98% on room air. will give Z pack. Continue Symbicort and Proair. Advised patient to use otc Mucinex. Advised patient to quit smoking. [id number] Dayana Parada (Adult Med) [address] [place] [address] 06/05/2014 09:54:53 06/05/2014 11:15:32 Essential hypertension 00610932 well controlled . Continue Medication s Type 2 berta betes mellitus 80309091 well controlled . Last HBA1C was 6.3 Continue medication s. Hyperlipidemia 00401187 Increase the Simvastati n to 40 mg po daily Repeat the Lipid panel in 4 months. Chronic ob structive pulmonary disease 08589518 continue Symbicort and Ventolin.. Tobacco user 047112307 a dvised patient to quit smoking. [id number] [facility] [address] [place] [address] 09/11/2014 14:45:48 09/11/2014 16:52:31 Urinary tract infectious disease 23946517 Starting cipro 250 mg bid for 3 days. Continue fluids. Heat or ice pack prn back discomfort . [id number] [place] (Adult Med) [address] [place] [address] 10/06/2014 13:44:51 10/06/2014 14:57:02 Essential hypertension 37093143 well controlled . Continue Medication s Type 2 berta betes mellitus 73267223 well controlled . Last HBA1C was 5.9 Continue medication s. Hyperlipidemia 78286895 LDL well controlled . Continue Simvastati n. Repeat the Lipid panel in 4 months. Chronic ob structive pulmonary disease 52411612 continue Symbicort and Ventolin. Advised patient to quit smoking. Neuropathy due to diabetes mellitus 174245665 Patient is c/o neuropathi c pains in the legs.she is not taking the Neurantin. Patient is waiting to see the new Neurologis t. will refill the Gabapentin . [id number] Cally Parada (Adult Med) [address] [place] [address] 12/15/2014 14:58:22 12/15/2014 15:53:26 Acute bronchitis 58594653 J20.4 Patient to try mucinex otc to loosen secretions . Tessalon perles prn and zpak to start in 3 days if not better. [id number] Riley Parada (Adult Med) [address] [place] [address] 03/10/2015 10:19:15 03/11/2015 15:04:03 Type 2 diabetes mellitus 56182337 E11.9 well controlled . Last HBA1C was 5.7. Continue same medication s. Essential hypertension 74227828 I10 well controlled . Continue Medication s Hyperlipidemia 20376878 E78.2 LDL well controlled . Continue Simvastati n. Chronic ob structive pulmonary disease 56039633 J44.9 continue Symbicort and Ventolin. Advised patient to quit smoking. Morbid obesity 402522743 E66.01 Advised 1500 calories low fat,low cholestero l,low carb diiabetic diet,regul ar exercise and weight reduction. Tobacco user 128941440 Z 72.0 advised patient to quit smoking. [id number] Rachel DAMICO (DIRECTOR MORTGAGE) [address] [place] [address] 05/06/2015 10:24:45 05/06/2015 11:31:24 Gynecologic examination 50545692 Z01.419 Venereal d isease screening 211955458 Z11.3 RTO one week for results. Screening for malignant neoplasm of breast 770409509 Z12.39 Screening for malignant neoplasm of colon 714455754 Z12.11 Has appointmen t in [place] 05/2015. Bacterial vaginosis 4197 28914 N76.0 Diagnosis d/w pt. Rx sent to pharmacy. Instructio dayami discussed. [id number] Rachel DAMICO (DIRECTOR MORTGAGE) [address] [place] [address] 05/20/2015 14:35:33 06/11/2015 17:28:40 Gynecologic examination 29618996 Z01.419 Pap was negative with negative hr-HPV, dwp. Venereal d isease screening 335914039 Z11.3 Vaginal culture was negative for gonorrhea, chlamydia, and trichomona s. STD panel was completely negative. Individual test results d/w pt. [id number] Carla Harrell APN, RECRUITING COORDINATOR-C Tal DAMICO (Adult Med) [address] [place] [address] 03/16/2016 10:45:24 03/16/2016 12:17:03 Type 2 diabetes mellitus 82227278 E11.9 Last HBA1C was 5.7. Continue same medication s. Dr David Persaud said she was no longer DM, Lab today. Essential hypertension 37292555 I10 well controlled . Continue propranolo l and losartan Hyperlipidemia 22233402 E78.2 LDL well controlled . Continue Simvastati n. Chronic ob structive pulmonary disease 37178209 J44.9 continue Symbicort and Ventolin. Advised patient to quit smoking. Morbid obesity 159706276 E66.01 advised 1500 calorie low fat, low cholestero l, low carb diet, regular exercise and weight reduction. Lumbar radiculopathy 128 712493 M54.16 please have records sent from Dr Persaud Adult [facility] th examination 192204953 Z00.00 Well woman exam advised, keep yearly apt. Conjunctivitis 4771702 H 10.9 Tobacco de pendence syndrome 67595173 F17.290 Continue to cut back on smoking. Upper resp iratory infection 59873390 J06.9 [id number] Carla Harrell APN, LUIS Parada (Adult Med) [address] [place] [address] 04/18/2016 14:46:15 04/18/2016 16:07:09 Type 2 diabetes mellitus 42157246 E11.9 Last HbA1C was 5.9. Continue same medication s. Essential hypertension 69825070 I10 well controlled . Continue propranolo l and losartan. Chronic ob structive pulmonary disease 99007129 J44.9 continue Symbicort and Ventolin. Advised patient to quit smoking. Morbid obesity 774725591 E66.01 advised 1500 calorie low fat, low cholestero l, low carb diet, regular exercise and weight reduction. Tobacco de pendence syndrome 60649414 F17.290 Continue to cut back on smoking. Disorder of vitamin D 38 0210378 E56.9 When out of refills of weekly replacemen t, have blood drawn. Administra tion of influenza vaccine 46712726 Z23 [id number] Carla Harrell APN, LUIS Parada (Adult Med) [address] [place] [address] 08/17/2016 15:04:52 08/18/2016 09:15:45 Essential hypertension 91029087 I10 well controlled . Continue propranolo l and losartan. Disorder of vitamin D 38 0139382 E56.9 When out of refills of weekly replacemen t, have blood drawn. Type 2 berta betes mellitus 01882408 E11.9 Last HbA1C was 5.9. Continue ASA, metformin Morbid obesity 541883627 E66.01 advised 1500 calorie low fat, low cholestero l, low carb diet, regular exercise and weight reduction. Bipolar disorder 6266853 4 F31.9 cont medication s as prescribed by Tammy Feliz at [facility]; f/u with [facility] Administra tion of pneumococcal vaccine 98521027 Z23 Tobacco de pendence syndrome 77271292 F17.290 Continue to cut back on smoking. Chronic ob structive pulmonary disease 73212003 J44.9 continue aerospan and Ventolin. Advised patient to quit smoking. Hyperlipidemia 89802266 E78.2 LDL well controlled . Continue Simvastati n. Neuropathy due to diabetes mellitus 586063930 E11.[address] Jaeger. Pain in right thumb 1076 611737 460618 M79.644 fell on 08/11; landed on right hand trying to catch herself; Medication monitoring 39 7401107 Z51.81 Pain contract signed 03/16/16On tramadol-M ay need refill sooner due to increased pain from fall; no refills until drug screen; dwp no more than 4 tramadol per day. will be picking up today; May not refill until 09/07 at earliest if drug screen clean. Lesion of skin of face 6943098004 06 L98.9 [id number] Carla Harrell APN, LUIS Parada (Adult Med) [address] [place] [address] 10/19/2016 14:41:02 10/20/2016 13:52:15 Pain in right thumb 4437026586 858700 M79.644 fell on 08/11; landed on right hand trying to catch herself; reprinted xray orders, RICE Acute maxi llary sinusitis 39393811 J01.00 Conjunctivitis 6305852 H 10.9 [id number] Carla Harrell APN, LUIS Parada (Adult Med) [address] [place] [address] 12/19/2016 14:49:29 12/19/2016 17:54:17 Essential hypertension 51834487 I10 well controlled . Continue propranolo l and losartan. Hyperlipidemia 66761471 E78.2 LDL well controlled . Continue Simvastati n. Type 2 berta betes mellitus 83014203 E11.9 last a1c was 6.0 Chronic ob structive pulmonary disease 68146465 J44.9 Smoking cessation encouraged . Anxiety 71960120 F41.9 short term to help with anxiety state and not sleeping Administra tion of influenza vaccine 16131320 Z23 [id number] Carla Harrell APN, LUIS DAMICO (Adult Med) [address] [place] [address] 06/20/2017 15:35:33 06/21/2017 08:44:28 Chronic obstructive pulmonary disease 59691864 J44.9 Smoking cessation encouraged . Type 2 berta betes mellitus 49135666 E11.9 last a1c was 6.0, needs labs done Hyperlipidemia 56378187 E78.2 LDL well controlled . Continue Simvastati n. Essential hypertension 93679545 I10 well controlled . Continue propranolo l and losartan. Tobacco de pendence syndrome 43649430 F17.290 Continue to cut back on smoking. Morbid obesity 674115668 E66.01 advised low fat, low cholestero l, low carb diet, regular exercise and weight reduction. Bipolar disorder 6486670 4 F31.9 had medication s prescribed by Tammy Feliz at [facility], was fired due to no shows, was in hospital Schizophrenia 51644618 F 20.[address], not out of medication yet Fibromyalgia 657483386 M 79.7 diagnosed at [facility] about 8 years ago, dwp doing yoga or other exercises to help stretch daily Dysuria 76612171 R30.0 Lumbago with sciatica 20 7535468 M54.41 M54.42 may cont with naproxen, seeing pain mgmt for injections [id number] Carla Harrell APN, LUIS DAMICO (Adult Med) [address] [place] [address] 09/27/2017 11:18:27 09/27/2017 14:25:26 Contact dermatitis 31736049 L25.9 dwp to not use off bug spray as she is likely allergic, will advise to use steroid cream topically to skin Pruritic disorder 854829 002 L29.9 rosa arms and posterior neck, dwo to avoid scratching skinwill provide vistaril to help with itching [id number] Carla Harrell APN, FNP-C [place] (Adult Med) [address] [place] [address] 11/13/2017 11:41:02 11/13/2017 15:22:16 Administration of influenza vaccine 56355984 Z23 cdc handout provided Anxiety disorder 9319016 06 F41.9 June cont prn vistaril until seen by psych, needs records release signed Loss of consciousness 41 8417683 R55 pt is poot historian and has unknown seizure hx, possibly had once before in her life; states her friends watched her pass out ; seizure hx with biological sister Dysuria 64688774 R30.0 urine pos for nitrates, blood and leuk, will send for culture as well as treat with [id number] Carla Harrell APN, FNP-C [place] (Adult Med) [address] [place] [address] 2018 16:12:43 01/17/2018 11:40:22 Type 2 diabetes mellitus 00664231 E11.9 last a1c was 5.6 in 09/2017 Essential hypertension 01957851 I10 well controlled . Continue propranolo l 40 mg tid and losartan. Hyperlipidemia 92103949 E78.2 LDL well controlled . Continue Simvastati n. Disorder of vitamin D 38 5255667 E56.9 recheck Chronic ob structive pulmonary disease 86182921 J44.9 Smoking cessation encouraged . Tobacco de pendence syndrome 91460965 F17.290 Continue to cut back on smoking. Morbid obesity 243837435 E66.01 advised low fat, low cholestero l, low carb diet, regular exercise and weight reduction. Lumbago with sciatica 20 0265545 M54.41 M54.42 cont with pain mgmt as well, may have flexeril prn Screening for malignant neoplasm of colon 289353214 Z12.11 [id number] Carla Harrell APN, FNP-C [place] (Adult Med) [address] [place] [address] 08/14/2018 11:23:15 08/15/2018 12:54:16 Type 2 diabetes mellitus 95739556 E11.9 last a1c was 5.6 in 09/2017, dwp to cont metformin and needs labs done today Essential hypertension 25433358 I10 stable; Continue propranolo l 40 mg tid and losartan. Hyperlipidemia 55984911 E78.2 needs lab, Continue Simvastati n. Disorder of vitamin D 38 0984384 E56.9 recheck level Chronic ob structive pulmonary disease 38166925 J44.9 Smoking cessation encouraged .cont inhalers- pt not sure which ones she has right now as they were changing so much. Tobacco de pendence syndrome 51642650 F17.290 Continue to cut back on smoking. Morbid obesity 650587798 E66.01 advised low fat, low cholestero l, low carb diet, regular exercise and weight reduction. Lumbago with sciatica 20 7958512 M54.41 M54.42 cont with pain mgmt as well, may have flexeril prn Fibromyalgia 893415939 M 79.7 diagnosed at [facility] about 8 years ago, dwp doing yoga or other exercises to help stretch daily; cont duloxetine 60 mg, 30 mg total of 90 mg Lumbar radiculopathy 128 383859 M54.16 was seeing pain mgmt- needs new referral; no more refills of tramadol; ok for lyrica till seen [id number] Carla Harrell APN, RECRUITING COORDINATOR-C Tal DAMICO (Adult Med) [address] [place] [address] 01/24/2019 11:46:28 01/25/2019 08:48:26 Type 2 diabetes mellitus 65809067 E11.9 last a1c was 5.6 in 09/2017, dwp to cont metformin and needs labs done today Essential hypertension 68937624 I10 stable; Continue propranolo l 40 mg tid and losartan. Hyperlipidemia 07888359 E78.2 needs lab, Continue Simvastati n. Disorder of vitamin D 38 0007402 E56.9 recheck level Chronic ob structive pulmonary disease 34011265 J44.9 Smoking cessation encouraged .cont inhalers- pt not sure which ones she has right now as they were changing so much. Tobacco de pendence syndrome 89710221 F17.290 Continue to cut back on smoking. Morbid obesity 896977446 E66.01 advised low fat, low cholestero l, low carb diet, regular exercise and weight reduction. Lumbago with sciatica 20 1474181 M54.41 M54.42 cont with pain mgmt as well, may have flexeril prndwp to call if needing new referral for pain mgmt, was getting injections Fibromyalgia 674944158 M 79.7 diagnosed at [facility] several ago, dwp doing yoga or other exercises to help stretch daily; cont duloxetine 60 mg, 30 mg total of 90 mg Lumbar radiculopathy 128 M54.16 was seeing pain mgmt- needs new referral?; no more refills of tramadol; ok for lyrica till seen by pain mgmt Screening for malignant neoplasm of colon 486362701 Z12.11 Stool kit provided with [employer] for use. Anxiety disorder F41.9 June cont prn vistaril until seen by psych [id number] Carla Harrell APN, RECRUITING COORDINATOR-C Tal DAMICO (Adult Med) [address] [place] [address] 04/25/2019 16:01:22 04/29/2019 08:04:02 Type 2 diabetes mellitus 20942798 E11.9 last a1c was 5.6 in 09/2017, dwp to cont metformin and needs labs done today Essential hypertension 10423661 I10 stable; Continue propranolo l 40 mg tid and losartan. Hyperlipidemia 31710918 E78.2 needs lab, Continue Simvastati n. Disorder of vitamin D 38 3785522 E56.9 recheck level Chronic ob structive pulmonary disease 79625128 J44.9 Smoking cessation encouraged .cont inhalers- pt not sure which ones she has right now as they were changing so much. Anxiety disorder F41.9 June cont prn vistaril until seen by psych Tobacco user 636865377 Z 72.0 Smoking cessation encouraged . Lumbar radiculopathy 128 M54.16 was seeing pain mgmt- needs new referral?; no more refills of tramadol; ok for lyrica till seen by pain mgmt Screening for malignant neoplasm of breast 461635058 Z12.39 mammogram order given Health con dition feared but not present 6049751990 90347 Z71.1 pt believes she had a stroke when she was arguing with kids a bout 2 months ago and now believes has droopy face on right and limp on left leg; neuro exam wnl dwp stroke is typically unilateral in nature, may be having more back pain; pt feels her stroke was more because she used to go to [employer] at 10 pm to go shopping and her put her on a budget and she is upset [id number] Carla Harrell APN, RECRUITING COORDINATOR-C Tal (Adult Med) [address] [place] [address] 08/29/2019 08:20:50 08/30/2019 10:01:10 Type 2 diabetes mellitus 18712682 E11.9 last a1c was 5.8, dwp to cont metformin Essential hypertension 18592016 I10 stable; Continue propranolo l 40 mg tid and losartan. Hyperlipidemia 46624626 E78.2 needs lab, Continue Simvastati n. Chronic ob structive pulmonary disease 03051935 J44.9 Smoking cessation encouraged .cont inhalers- pt not sure which ones she has right now as they were changing so much. Anxiety disorder 2278816 06 F41.9 May cont prn vistaril; Tobacco user 312181744 Z 72.0 Smoking cessation encouraged . Lumbar radiculopathy 128 050282 M54.16 was seeing pain mgmt- needs new referral?; no more refills of tramadol; ok for lyrica till seen by pain mgmt going to [facility], got a shot and goes back next week for second shot Depressive disorder 7248 9007 F32.9 dwp to call doc pizarro to make apt [id number] Rachel Alanis Tal (DIRECTOR MORTGAGE) [address] [place] [address] 10/14/2019 13:45:25 10/15/2019 07:06:42 Gynecologic examination 31618175 Z01.419 Last pap done 05/06/15 was negative with negative hr-HPV. Pap due. Pap done. Venereal d isease screening 017103301 Z11.3 Telephone visit 2 weeks for results. Screening for malignant neoplasm of breast 513541860 Z12.39 Last 2013. Mother with breast CA Screening for malignant neoplasm of colon 306921367 Z12.11 Needs colonoscop y. Has FH colon CA, breast CA Family his tory of malignant neoplasm of breast in first degree relative 083834806 Z80.3 Mother with both breast and colon CA. Family his tory of cancer of colon 458388500 Z80.0 Mother with both breast and colon CA. Reduced libido 6398416 R 68.82 Male and female sexual response discussed. Pt. will work with to improve sex life. Body mass index 40+ - severely obese 500924665 Z68.41 nutrition and exercise discussed. Cigarette smoker 4574873 7 F17.210 Cessation discussed. Menopausal flushing 1983 11143 N95.1 Inability to give estrogen with smoking due to increased risk of blood clots like a PE, CVA, CO, DVT dwp. If pt. can stop smoking x 6 mo, she could take estrogen, dwp. [id number] Rachel Alanis Tal (DIRECTOR MORTGAGE) [address] [place] [address] 11/26/2019 09:18:48 11/28/2019 11:49:12 Trichomonal vulvovaginitis 89118262 A59.01 Diagnosis d/w pt. Rx sent to pharmacy. Instructio ns discussed. Pt. instructed to have her partner(s) tested and treated. No sex until negative RAMAKRISHNA. RTO 3 weeks for RAMAKRISHNA. [id number] Carla Harrell APN, LUIS Parada (Adult Med) [address] [place] [address] 12/03/2019 08:20:57 12/04/2019 06:39:25 Type 2 diabetes mellitus 27483340 E11.9 last a1c was 5.8, dwp to cont metformin Essential hypertension 28096623 I10 stable; Continue propranolo l 40 mg tid and losartan. Hyperlipidemia 75277021 E78.2 Continue Simvastati n. Chronic ob structive pulmonary disease 82915885 J44.9 Smoking cessation encouraged .cont inhalers-p rn albuterol Anxiety disorder 1577237 06 F41.9 May cont prn vistaril; Tobacco user 182757670 Z 72.0 Smoking cessation encouraged . Lumbar radiculopathy 128 754983 M54.16 was seeing pain mgmt- needs new referral?; no more refills of tramadol; ok for lyrica till seen by pain mgmt going to [facility], Depressive disorder 9137 9007 F32.9 cont with psychiatry [id number] Carla Harrell APN, LUIS Parada (Adult Med) [address] [place] [address] 03/06/2020 09:09:45 03/10/2020 07:33:26 Type 2 diabetes mellitus 86934187 E11.9 last a1c was 6.2, dwp to cont metformin Essential hypertension 57395106 I10 stable; Continue propranolo l 40 mg tid and losartan. Hyperlipidemia 86775553 E78.2 Continue Simvastati n. Chronic ob structive pulmonary disease 69689390 J44.9 Smoking cessation encouraged .cont inhalers-p rn albuterol Anxiety disorder 7629530 06 F41.9 May cont prn vistaril; Tobacco user 569004799 Z 72.0 Smoking cessation encouraged . Lumbar radiculopathy 128 349747 M54.16 was seeing pain mgmt- no more refills of tramadol; ok for lyrica till seen by pain mgmt- going to [facility] Depressive disorder 3548 9007 F32.9 cont with psychiatry Endocrine/ metabolic screening 287904992 Z13.095 [id number] Carla Harrell APN, LUIS [facility] (Adult Med) [address] [place] [address] 04/06/2020 08:51:00 04/07/2020 09:08:02 Chronic obstructive pulmonary disease 86417254 J44.9 Smoking cessation encouraged .cont inhalers-p rn albuterol Acute exac erbation of chronic obstructive pulmonary disease 150813861 J44.1 flare triggered by weather, will start medrol dose pack, pt requests cough pills, also rx nebulizer, advised pt to call if not improving Tardive dyskinesia 88010 9007 G24.01 was seeing neuro in [facility] and would like one closer Degenerati on of lumbar intervertebral disc 06939512 M51.36 was seeing pain mgmt, pt requests tylenol ER 650 mg [id number] Carla Harrell APN, [facility] (Adult Med) [address] [facility] [place] [address] 06/03/2020 15:12:10 06/04/2020 08:50:14 Adult health examination 262290535 Z00.01 Encouraged routine [employer], vision, dental exams, well balanced diet. Screening for malignant neoplasm of colon 090720090 Z12.11 Stool kit provided with [employer] ns for use. Disorder of vitamin D 38 0507459 E56.9 recheck level Essential hypertension 91831430 I10 elevated today, missing mid day dosing; dwp importance of med compliance and risk of adverse cardiac event Continue propranolo l and losartan. will change dosing to both meds to bid dosing with a slight increase to propranolo l as well: losartan 25 mg 2 tablets bid and propranolo l 60 mg bid Fibromyalgia 830094312 M 79.7 diagnosed at [facility] several ago, dwp doing yoga or other exercises to help stretch daily; cont duloxetine 60 mg, 30 mg total of 90 mg pt is to see neuro in June and would like to resume celebrex and lyrica prior to that visit so meds can be adjusted when she goes, dwp options and will resums, lyrica at lower dose Hyperlipidemia 67789183 E78.2 Continue Simvastati n. Morbid obesity 359752023 E66.01 advised low fat, low cholestero l, low carb diet, regular exercise and weight reduction. Tobacco de pendence syndrome 72232132 F17.290 Continue to cut back on smoking. Type 2 berta betes mellitus 16166968 E11.9 last a1c was 6.2, today 6.1; dwp to cont metformin Chronic ob structive pulmonary disease 67512970 J44.9 Smoking cessation encouraged cont inhalers-p rn albuterol [id number] Carla Harrell APN, LUIS DAMICO (Adult Med) [address] [place] [address] 08/25/2020 15:48:39 08/25/2020 18:49:39 Sore throat 860457755 J02.9 dwp to increase fluids, OTC cold med prn, rest, good handwashin g Diverticul osis of colon 959256732 K57.[address] from ER, increasing pain, dwp needs to follow up with GI or go to ER if pain worsening, justen eduardo for bacterial infection with cipro and flagyl Degenerati on of lumbar intervertebral disc 38317540 M51.36 was seeing pain mgmt, but has not been able to go back;cont prn tylenol ER 650 mg, will send smll rx for severe pain only [id number] Carla Harrell APN, [facility] (Adult Med) [address] [place] [address] 10/27/2020 14:58:17 10/28/2020 10:49:48 Degeneration of lumbar intervertebral disc 77661254 M51.36 was seeing pain mgmt, but has not been able to go back;cont prn tylenol ER 650 mg,will send new referral Essential hypertension 76183809 I10 improved dwp importance of med compliance and risk of adverse cardiac event Continue losartan 25 mg 2 tablets bid and propranolo l 60 mg bid Hyperlipidemia 30101930 E78.2 Continue Simvastati n. Chronic ob structive pulmonary disease 10290625 J44.9 Smoking cessation encouraged cont inhalers-p rn albuterol Morbid obesity 014224620 E66.01 advised low fat, low cholestero l, low carb diet, regular exercise and weight reduction. Type 2 berta betes mellitus 99780941 E11.9 last a1c was 6.1; dwp to cont metformin Tobacco de pendence syndrome 86718668 F17.290 Continue to cut back on smoking. Gastroesop hageal reflux disease without esophagitis 833261515 K21.9 cont ppi, follow up with GI as planned Obesity 660187262 E66.9 advised low fat, low cholestero l diet, regular exercise and weight reduction. Diverticul osis of colon [id number] K57.[address] from ER, recent colonoscop ydiet changes advised;dw p needs to follow up with GI [id number] Carla Harrell APN, RECRUITING COORDINATOR-C Tal (Adult Med) [address] [place] [address] 01/29/2021 14:29:21 02/01/2021 10:44:07 Degeneration of lumbar intervertebral disc [id number] M51.36 was seeing pain mgmt, but has not been able to go back;cont prn tylenol ER 650 mg,waiting on referral Essential hypertension 72255223 I10 improved with rest dwp importance of med compliance and risk of adverse cardiac event Continue losartan 25 mg 2 tablets bid and propranolo l 60 mg bid Hyperlipidemia 38479541 E78.2 Continue Simvastati n. Chronic ob structive pulmonary disease 88643760 J44.9 Smoking cessation encouraged cont inhalers-p rn albuterol Morbid obesity 232325355 E66.01 advised low fat, low cholestero l, low carb diet, regular exercise and weight reduction. Type 2 berta betes mellitus 79692855 E11.9 last a1c was 5.8; dwp to cont metformin Tobacco de pendence syndrome 32897429 F17.290 Continue to cut back on smoking. 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 [id number] 37276 G56.02 was ready for surgery then covid halted it, needs new referral to ortho [id number] Carla Harrell APN, RECRUITING COORDINATOR-C Tal (Adult Med) [address] [place] [address] 05/12/2021 11:22:54 05/13/2021 06:21:44 Psoriasis of scalp [id number] L40.9 patch to forehead, since last July, has been trying to get it to go away using topicalspr n clobetasol Degenerati on of lumbar intervertebral disc 00860869 M51.36 was seeing pain mgmt, but has not been able to go back;pt states tramadol is no longer helping her, will change to tylenol with codeine until she can see pain mgmtpt also requesting increase to lyricawait ing on referral, pt is willing to do PT in order to get into pain mgmt Essential hypertension 93623163 I10 pt has been taking 300 mg losartan bid on her own, was advised that was incorrect dosing. dwp importance of med compliance and risk of adverse cardiac event Continue losartan 100 mg bid Gastroesop hageal reflux disease without esophagitis 255760712 K21.9 cont ppi, follow up with GI as planned Lumbago with sciatica 20 5103322 M54.41 M54.42 trying to get back into pain mgmtmay have flexeril prn,advise d diclofenac prn,cont lyricadwp to call if needing new referral for pain mgmt, was getting injections Type 2 berta betes mellitus 21744888 E11.9 last a1c was 5.8; dwp to cont metformin Dysuria 31813760 R30.0 urine pos for nitrates, blood and leuk, will send for culture as well as treat with macrobid [id number] MD Tal SPRINGER (DIRECTOR MORTGAGE) [address] [place] [address] 03/19/2024 13:03:25 03/22/2024 16:31:12 Positive screening for depression on PHQ-9 (Patient Health Questionnaire 9) [id number] 26091 Z13.31 - Referred to at [facility] by PCP Routine gy necologic examination done [id number] 9101 Z01.419 - Reviewed risks for infection and cancer; ordered screening tests as appropriat e- Patient to follow up with PCP for routine cardiovasc ular disease screening- UTD on cervical cancer screening until 09/2024 Screening for malignant neoplasm of breast 966458261 Z12.31 - Mammo ordered by PCP Venereal d isease screening 112158157 Z11.3 - STI screening including serum testing per patient request Administra tion of diphtheria, pertussis, and tetanus vaccine 094670226 Z23 Administra tion of pneumococcal vaccine 05439522 Z23 Health Concerns Section Related Observation LastModified by Organization Detai ls LastModified Time None Recorded Concern Status LastModified by Organization Details LastModified Time None Recorded Advance Directives Directive N: Payers Encounter Date Sequence Insurance Name Policy Number Policy Poole Covered Member ID Poole Member ID Guarantor Name 08/25/2020 1 [facility] - DOS PRIOR TO 2020 (MEDICAID REPLACEMENT - HMO) Dipika Tran [id number] Dipika Tran 10/27/2020 1 [facility] - DOS ON OR AFTER 20 (MEDICAID REPLACEMENT - HMO) Dipika Tran [id number] Dipika Tran 01/29/2021 1 [facility] (MEDICAID HMO) [id number] Dipika Tran [id number] Dipika Tran 05/12/2021 1 [facility] (MEDICAID HMO) [id number] Dipika Tran [id number] Dipika Tran 03/19/2024 1 [facility] (MEDICAID HMO) [id number] Dipika Tran [id number] Dipika Tran Notes Date Note Type Note Provider Name and Address Organization Details Recorded Time 1 text/html has been in pain for the last month. Pt claim it large intestine. would like to be referred to have colonoscopy Carla Harrell APN, FNP-C Attn: Accounting,[address] [facility], [place], [address], [facility] 08/25/2020 16:29:13 1 text/html Throat PainReported bypatient.Location:level of pain Quality:aching Severity:moderate Duration:started 1 week(s) ago Onset/Timing:constant Alleviating Factors:cold medicine Aggravating Factors:smoking Associated Symptoms:throat tickle/itch Diet History:caffeine; sodaNotes:had a fever for a day but broke last night.gargled peroxide, no sinus drainage Carla Harrell APN, FNP-C Attn: Accounting,[address] [facility], [place], [address], [facility] 08/25/2020 16:29:13 1 text/html COPDReported bypatient.Onset/Timing:in termittent; multiple times per day Severity:moderate; Uses nebulizer/inhaler an average of times/week lately Quality:symptoms worse with lying downNotes:flaring up with copd, tightness and coughing, weather change flared her up, losing voice at times, worse at hsDiabetes F/UReported bypatient.Review finger sticks:no longer checking since Dr Persaud told her she was not diabetic or pre diabetic Labs:last A1C result: Context:taking aspirin daily; not missing doses of medications; no side effects from medications;not seeing eye doctor yearly Associated Symptoms:no weight gain; no weight loss; no dizziness; no sweats; no headaches; no confusion; no increased thirst; no increased appetite; no increased urination; no blurred vision; no calluses on feet;numbness of feetHyperlipidemiaReporte d bypatient.Type of hyperlipidemia:combined Duration:chronic Control:at goal Compliance:compliant;nonc ompliant with diet;does not exerciseHypertension F/UReported bypatient.Associated Symptoms:no dizziness; no lightheadedness; no chest pain; no shortness of breath; no palpitations; no edema; no calf pain with exertion Lifestyle:limiting/avoidi ng salt;not exercising regularly Medications:taking medications as directed; no side effects from medication c/o GI issues, showing sign of no improvement even after getting medication from GI doc, had colonoscopy last week but has not yet followed up with GI, Needs pain mgmt referral for [facility] if possible Carla Harrell APN, FNP-C Attn: Accounting,[address] [facility], [place], [address], [facility] 10/27/2020 23:19:59 1 text/html COPDReported bypatient.Onset/Timing:in termittent; multiple times per day Severity:moderate; Uses nebulizer/inhaler an average of times/week lately Quality:symptoms worse with lying downNotes:flaring up with copd, tightness and coughing, weather change flared her up, losing voice at times, worse at hsDiabetes F/UReported bypatient.Review finger sticks:no longer checking since Dr Persaud told her she was not diabetic or pre diabetic Labs:last A1C result: Context:taking aspirin daily; not missing doses of medications; no side effects from medications;not seeing eye doctor yearly Associated Symptoms:no weight gain; no weight loss; no dizziness; no sweats; no headaches; no confusion; no increased thirst; no increased appetite; no increased urination; no blurred vision; no calluses on feet;numbness of feetHyperlipidemiaReporte d bypatient.Type of hyperlipidemia:combined Duration:chronic Control:at goal Compliance:compliant;nonc ompliant with diet;does not exerciseHypertension F/UReported bypatient.Associated Symptoms:no dizziness; no lightheadedness; no chest pain; no shortness of breath; no palpitations; no edema; no calf pain with exertion Lifestyle:limiting/avoidi ng salt;not exercising regularly Medications:taking medications as directed; no side effects from medication pt c/o lower back pain- sciatica. pain started in august. pt states her carpal tunnel has got worse, states she has to call orthopeds to schedule appt for a surgery. want flu shot Carla Harrell, RIVER RAT, RECRUITING COORDINATOR-C Attn: Accounting,[address], [place], [address], [facility] 01/29/2021 17:42:32 2 text/html COPDReported bypatient.Onset/Timing:in termittent; multiple times per day Severity:moderate; Uses nebulizer/inhaler an average of times/week lately Quality:symptoms worse with lying downNotes:flaring up with copd, tightness and coughing, weather change flared her up, losing voice at times, worse at hsDiabetes F/UReported bypatient.Review finger sticks:no longer checking since Dr Persaud told her she was not diabetic or pre diabetic Labs:last A1C result: Context:taking aspirin daily; not missing doses of medications; no side effects from medications;not seeing eye doctor yearly Associated Symptoms:no weight gain; no weight loss; no dizziness; no sweats; no headaches; no confusion; no increased thirst; no increased appetite; no increased urination; no blurred vision; no calluses on feet;numbness of feetHyperlipidemiaReporte d bypatient.Type of hyperlipidemia:combined Duration:chronic Control:at goal Compliance:compliant;nonc ompliant with diet;does not exerciseHypertension F/UReported bypatient.Associated Symptoms:no dizziness; no lightheadedness; no chest pain; no shortness of breath; no palpitations; no edema; no calf pain with exertion Lifestyle:limiting/avoidi ng salt;not exercising regularly Medications:taking medications as directed; no side effects from medicationNotes:pt reports taking 300 mg losartan bid pt c/o lower back pain- sciatica. pain worsening. Increased her steps to 1000 a day now and trying to get into pain mgmt. states her tramadol is not helping her and she would like stronger medicaiton Dm- trying to work on her diet, lives with another diabetic so they are working on Carla YEN Harrell, RECRUITING COORDINATOR-C Attn: Accounting,[address], [place], [address], [facility] 05/12/2021 14:19:55 5 text/html Annual well woman- PCP: Alivia Chandler MD Concerns today- Vaginal odor for past month. No itching or irritation. No vaginal discharge. Had unprotected sex about a month ago. Infection risk- Prior testing for HIV? Neg in 2019- Prior testing for HepC? Neg in 2019- History of STIs? Trichomonas (2019)- Currently having unprotected sex? Yes- Vaccines due? COVID, flu, Tdap, PCV20 (5-years after PPV23 and PCV13), [employer] Plans for - S/p menopause (~age 48) Cancer screenings- Breast cancer: Neg mammo (2021)- Cervical cancer: NILM, neg hr-HPV (09/2019)- Colon cancer: Reports normal colonoscopy in 2022; needs repeat every 2-3 years due to FHx of colon cancer in mom.- Lung cancer: Current smoker -- 0.25 ppd. For 20-30 years, smoked 0.5 ppd. JOY PICKARD MD Attn: Accounting,[address] [place], [address], [facility] 03/19/2024 15:25:14 OBGyn Episode Ob Episode Information Episode Created Date Number of Fetuses Patient Bloodtype Patient rh Status Prepregnancy Weight lbs Domestic Partner Domestic Partner Phone Father Name Laboratory Helper Status 05/06/19 16 1 CLOSED Fetus Data First Name Last Name Admitted to NICU Weight (g) Sex Living Outcome Pediatric Complications Fetus ID Race Codes Race Delivery Type 3628.73 6 M Full Term [id number] Brendan Calculation Initial Brendan Date Initial Exam Date Initial Exam Provider Initial Ultrasound Date Last Menstrual Period Date Ultra Sound Weeks Gestation 0 Eighteen To Twenty Week Brendan Update Ultra Sound Date Fundal Height At Umbil Quickening Date Ultra Sound Latest Weeks Gestation Final Brendan Confirmed By Final Brendan Confirmed Date Final Brendan Date Ultra Sound Latest Days Gestation 0 0 Menstrual History Last Menstrual Date Menses Monthly On Bcp Conception Prior Menses Frequency Hcg Plus Date Menarche Onset Age Delivery Information Delivery Date Delivery Type Labor Anesthesia Weeks Gestation Incision Type Labor Labor Length Hrs Delivered By Post Complications Tubal Sterilization Discharge Date Comments 1 Discharge Information Feeding Method Contraceptive Method Maternal HG B and HCT Levels Ob Episode Information Episode Created Date Number of Fetuses Patient Bloodtype Patient rh Status Prepregnancy Weight lbs Domestic Partner Domestic Partner Phone Father Name Laboratory Helper Status 05/06/19 16 1 CLOSED Fetus Data First Name Last Name Admitted to NICU Weight (g) Sex Living Outcome Pediatric Complications Fetus ID Race Codes Race Delivery Type , Induced [id number] Brendan Calculation Initial Brendan Date Initial Exam Date Initial Exam Provider Initial Ultrasound Date Last Menstrual Period Date Ultra Sound Weeks Gestation 0 Eighteen To Twenty Week Brendan Update Ultra Sound Date Fundal Height At Umbil Quickening Date Ultra Sound Latest Weeks Gestation Final Brendan Confirmed By Final Brendan Confirmed Date Final Brendan Date Ultra Sound Latest Days Gestation 0 0 Menstrual History Last Menstrual Date Menses Monthly On Bcp Conception Prior Menses Frequency Hcg Plus Date Menarche Onset Age Delivery Information Delivery Date Delivery Type Labor Anesthesia Weeks Gestation Incision Type Labor Labor Length Hrs Delivered By Post Complications Tubal Sterilization Discharge Date Comments 7 Discharge Information Feeding Method Contraceptive Method Maternal HG B and HCT Levels Ob Episode Information Episode Created Date Number of Fetuses Patient Bloodtype Patient rh Status Prepregnancy Weight lbs Domestic Partner Domestic Partner Phone Father Name Laboratory Helper Status 05/06/19 16 1 CLOSED Fetus Data First Name Last Name Admitted to NICU Weight (g) Sex Living Outcome Pediatric Complications Fetus ID Race Codes Race Delivery Type , Induced [id number] Brendan Calculation Initial Brendan Date Initial Exam Date Initial Exam Provider Initial Ultrasound Date Last Menstrual Period Date Ultra Sound Weeks Gestation 0 Eighteen To Twenty Week Brendan Update Ultra Sound Date Fundal Height At Umbil Quickening Date Ultra Sound Latest Weeks Gestation Final Brendan Confirmed By Final Brendan Confirmed Date Final Brendan Date Ultra Sound Latest Days Gestation 0 0 Menstrual History Last Menstrual Date Menses Monthly On Bcp Conception Prior Menses Frequency Hcg Plus Date Menarche Onset Age Delivery Information Delivery Date Delivery Type Labor Anesthesia Weeks Gestation Incision Type Labor Labor Length Hrs Delivered By Post Complications Tubal Sterilization Discharge Date Comments 6 Discharge Information Feeding Method Contraceptive Method Maternal HG B and HCT Levels Ob Episode Information Episode Created Date Number of Fetuses Patient Bloodtype Patient rh Status Prepregnancy Weight lbs Domestic Partner Domestic Partner Phone Father Name Laboratory Helper Status 05/06/19 16 1 CLOSED Fetus Data First Name Last Name Admitted to NICU Weight (g) Sex Living Outcome Pediatric Complications Fetus ID Race Codes Race Delivery Type 3175.14 4 M Full Term [id number] Brendan Calculation Initial Brendan Date Initial Exam Date Initial Exam Provider Initial Ultrasound Date Last Menstrual Period Date Ultra Sound Weeks Gestation 0 Eighteen To Twenty Week Brendan Update Ultra Sound Date Fundal Height At Umbil Quickening Date Ultra Sound Latest Weeks Gestation Final Brendan Confirmed By Final Brendan Confirmed Date Final Brendan Date Ultra Sound Latest Days Gestation 0 0 Menstrual History Last Menstrual Date Menses Monthly On Bcp Conception Prior Menses Frequency Hcg Plus Date Menarche Onset Age Delivery Information Delivery Date Delivery Type Labor Anesthesia Weeks Gestation Incision Type Labor Labor Length Hrs Delivered By Post Complications Tubal Sterilization Discharge Date Comments 5 Discharge Information Feeding Method Contraceptive Method Maternal HG B and HCT Levels Ob Episode Information Episode Created Date Number of Fetuses Patient Bloodtype Patient rh Status Prepregnancy Weight lbs Domestic Partner Domestic Partner Phone Father Name Laboratory Helper Status 05/06/19 16 1 CLOSED Fetus Data First Name Last Name Admitted to NICU Weight (g) Sex Living Outcome Pediatric Complications Fetus ID Race Codes Race Delivery Type 3175.14 4 F Full Term 89590 Brendan Calculation Initial Brendan Date Initial Exam Date Initial Exam Provider Initial Ultrasound Date Last Menstrual Period Date Ultra Sound Weeks Gestation 0 Eighteen To Twenty Week Brendan Update Ultra Sound Date Fundal Height At Umbil Quickening Date Ultra Sound Latest Weeks Gestation Final Brendan Confirmed By Final Brendan Confirmed Date Final Brendan Date Ultra Sound Latest Days Gestation 0 0 Menstrual History Last Menstrual Date Menses Monthly On Bcp Conception Prior Menses Frequency Hcg Plus Date Menarche Onset Age Delivery Information Delivery Date Delivery Type Labor Anesthesia Weeks Gestation Incision Type Labor Labor Length Hrs Delivered By Post Complications Tubal Sterilization Discharge Date Comments 2 Discharge Information Feeding Method Contraceptive Method Maternal HG B and HCT Levels Ob Episode Information Episode Created Date Number of Fetuses Patient Bloodtype Patient rh Status Prepregnancy Weight lbs Domestic Partner Domestic Partner Phone Father Name Laboratory Helper Status 05/06/19 16 1 CLOSED Fetus Data First Name Last Name Admitted to NICU Weight (g) Sex Living Outcome Pediatric Complications Fetus ID Race Codes Race Delivery Type 3628.73 6 F Full Term 99780 Brendan Calculation Initial Brendan Date Initial Exam Date Initial Exam Provider Initial Ultrasound Date Last Menstrual Period Date Ultra Sound Weeks Gestation 0 Eighteen To Twenty Week Brendan Update Ultra Sound Date Fundal Height At Umbil Quickening Date Ultra Sound Latest Weeks Gestation Final Brendan Confirmed By Final Brendan Confirmed Date Final Brendan Date Ultra Sound Latest Days Gestation 0 0 Menstrual History Last Menstrual Date Menses Monthly On Bcp Conception Prior Menses Frequency Hcg Plus Date Menarche Onset Age Delivery Information Delivery Date Delivery Type Labor Anesthesia Weeks Gestation Incision Type Labor Labor Length Hrs Delivered By Post Complications Tubal Sterilization Discharge Date Comments 9 Discharge Information Feeding Method Contraceptive Method Maternal HG B and HCT Levels Ob Episode Information Episode Created Date Number of Fetuses Patient Bloodtype Patient rh Status Prepregnancy Weight lbs Domestic Partner Domestic Partner Phone Father Name Laboratory Helper Status 05/06/19 16 1 CLOSED Fetus Data First Name Last Name Admitted to NICU Weight (g) Sex Living Outcome Pediatric Complications Fetus ID Race Codes Race Delivery Type Ectopic [id number] Brendan Calculation Initial Brendan Date Initial Exam Date Initial Exam Provider Initial Ultrasound Date Last Menstrual Period Date Ultra Sound Weeks Gestation 0 Eighteen To Twenty Week Brendan Update Ultra Sound Date Fundal Height At Umbil Quickening Date Ultra Sound Latest Weeks Gestation Final Brendan Confirmed By Final Brendan Confirmed Date Final Brendan Date Ultra Sound Latest Days Gestation 0 0 Menstrual History Last Menstrual Date Menses Monthly On Bcp Conception Prior Menses Frequency Hcg Plus Date Menarche Onset Age Delivery Information Delivery Date Delivery Type Labor Anesthesia Weeks Gestation Incision Type Labor Labor Length Hrs Delivered By Post Complications Tubal Sterilization Discharge Date Comments 4 Discharge Information Feeding Method Contraceptive Method Maternal HG B and HCT Levels Ob Episode Information Episode Created Date Number of Fetuses Patient Bloodtype Patient rh Status Prepregnancy Weight lbs Domestic Partner Domestic Partner Phone Father Name Laboratory Helper Status 05/06/19 16 1 CLOSED Fetus Data First Name Last Name Admitted to NICU Weight (g) Sex Living Outcome Pediatric Complications Fetus ID Race Codes Race Delivery Type 3175.14 4 F Full Term 18198 Brendan Calculation Initial Brendan Date Initial Exam Date Initial Exam Provider Initial Ultrasound Date Last Menstrual Period Date Ultra Sound Weeks Gestation 0 Eighteen To Twenty Week Brendan Update Ultra Sound Date Fundal Height At Umbil Quickening Date Ultra Sound Latest Weeks Gestation Final Brendan Confirmed By Final Brendan Confirmed Date Final Brendan Date Ultra Sound Latest Days Gestation 0 0 Menstrual History Last Menstrual Date Menses Monthly On Bcp Conception Prior Menses Frequency Hcg Plus Date Menarche Onset Age Delivery Information Delivery Date Delivery Type Labor Anesthesia Weeks Gestation Incision Type Labor Labor Length Hrs Delivered By Post Complications Tubal Sterilization Discharge Date Comments 5 Discharge Information Feeding Method Contraceptive Method Maternal HG B and HCT Levels Ob Episode Information Episode Created Date Number of Fetuses Patient Bloodtype Patient rh Status Prepregnancy Weight lbs Domestic Partner Domestic Partner Phone Father Name Laboratory Helper Status 05/06/19 16 1 CLOSED Fetus Data First Name Last Name Admitted to NICU Weight (g) Sex Living Outcome Pediatric Complications Fetus ID Race Codes Race Delivery Type , Spontane ous 71571 Brendan Calculation Initial Brendan Date Initial Exam Date Initial Exam Provider Initial Ultrasound Date Last Menstrual Period Date Ultra Sound Weeks Gestation 0 Eighteen To Twenty Week Brendan Update Ultra Sound Date Fundal Height At Umbil Quickening Date Ultra Sound Latest Weeks Gestation Final Brendan Confirmed By Final Brendan Confirmed Date Final Brendan Date Ultra Sound Latest Days Gestation 0 0 Menstrual History Last Menstrual Date Menses Monthly On Bcp Conception Prior Menses Frequency Hcg Plus Date Menarche Onset Age Delivery Information Delivery Date Delivery Type Labor Anesthesia Weeks Gestation Incision Type Labor Labor Length Hrs Delivered By Post Complications Tubal Sterilization Discharge Date Comments 3 Discharge Information Feeding Method Contraceptive Method Maternal HG B and HCT Levels Ob Episode Information Episode Created Date Number of Fetuses Patient Bloodtype Patient rh Status Prepregnancy Weight lbs Domestic Partner Domestic Partner Phone Father Name Laboratory Helper Status 05/06/19 16 1 CLOSED Fetus Data First Name Last Name Admitted to NICU Weight (g) Sex Living Outcome Pediatric Complications Fetus ID Race Codes Race Delivery Type , Induced 87755 Brendan Calculation Initial Brendan Date Initial Exam Date Initial Exam Provider Initial Ultrasound Date Last Menstrual Period Date Ultra Sound Weeks Gestation 0 Eighteen To Twenty Week Brendan Update Ultra Sound Date Fundal Height At Umbil Quickening Date Ultra Sound Latest Weeks Gestation Final Brendan Confirmed By Final Brendan Confirmed Date Final Brendan Date Ultra Sound Latest Days Gestation 0 0 Menstrual History Last Menstrual Date Menses Monthly On Bcp Conception Prior Menses Frequency Hcg Plus Date Menarche Onset Age Delivery Information Delivery Date Delivery Type Labor Anesthesia Weeks Gestation Incision Type Labor Labor Length Hrs Delivered By Post Complications Tubal Sterilization Discharge Date Comments 8 Discharge Information Feeding Method Contraceptive Method Maternal HG B and HCT Levels
--- OUTSIDE RECORDS SUMMARY | 2024-04-02 11:53 | XMS_ITS | Patient Health Summary ---
Author Organization [facility] Address [address] [place] [address] Care Team Providers Care Bulb Grader Name Role Phone Meme Samuel RN Unavailable Unavailable Omar Delarosa MD, Formerly [facility] Primary Care Prov ider Adelina Trinidad DO Unavailable Note from [facility],non-owned Affiliates and Associated Physician Practices is amultiple site organization consisting of ambulatory clinics and hospital sitesin [place], [place], [place] and [place]. This disclosure is being madepursuant to the Care Everywhere program and may not contain all information available regarding this patient. Last updated 17.[facility] Allergies * Trazodone(Anaphylaxis) -High Criticality * Meloxicam(Swelling) -Low Criticality,Inactive Medications * Be aware that medications may not be up to date on this document. Alwaysverify current medications with the patient. * aspirin EC (Ecotrin) 81 MG tablet(Started 12/19/2016) * hydrOXYzine pamoate (VISTARIL) 25 MG capsule(Started 12/19/2016) * metFORMIN (GLUCOPHAGE) 1000 MG tablet(Started 12/19/2016) * propranolol (INDERAL) 60 MG tablet(Started 12/20/2016) * simvastatin (ZOCOR) 40 MG tablet(Started 12/19/2016) * vitamin E (E-400) 400 UNIT capsule(Started 03/02/2017) Take 1 (one) capsule by mouth DAILY * albuterol HFA (VENTOLIN HFA) 108 (90 BASE) MCG/ACT inhaler(Started 11/21/2016) Inhale 2 (two) puffs by mouth q4h PRN (Shortness of Breath) * cyclobenzaprine (FLEXERIL) 10 MG tablet Take 1 (one) tablet by mouth 3 times daily * pregabalin (LYRICA) 50 MG capsule Take 1 (one) capsule by mouth 2 times daily * naloxone HCl (Narcan) 4 MG/0.1ML nasal spray(Started 12/20/2021) [place] 1 (one) spray into the nose as needed (May repeat every 2 min in alternating nostrils until emergency medical help arrives for overdose) * ketorolac (Toradol) 10 MG tablet(Started 02/25/2022) Take 1 (one) tablet by mouth every 6 hours as needed for Pain 2 refills by 02/25/2023 * tiZANidine (Zanaflex) 4 MG tablet(Started 03/11/2022) Take 1 (one) tablet by mouth as needed * topiramate (Topamax) 100 MG tablet Take 1 (one) tablet by mouth at bedtime * losartan-hydroCHLOROthiazide (Hyzaar) 100-25 MG tablet Take 1 (one) tablet by mouth once daily * deutetrabenazine (Austedo) 9 MG tablet(Started 05/31/2022) Take 1 (one) tablet by mouth once daily 3 refills by 05/31/2023 * omeprazole (PriLOSEC) 20 MG capsule(Started 09/18/2021) * liraglutide (Victoza) 18 MG/3ML pen Inject 1.2 mg subcutaneously 2 times daily 1.8 mg and 1.2mg daily * triamcinolone acetonide (Kenalog) 0.1 % ointment(Started 07/07/2022) Apply to affected area 2 times daily 3 refills by 07/07/2023 * divalproex DR (Depakote) 500 MG tablet(Started 07/22/2022) TAKE 1 TABLET BY MOUTH IN THE MORNING AND 2 TABLETS NIGHTLY AT BEDTIME 3 refills by 07/22/2023 * DULoxetine (Cymbalta) 60 MG capsule(Started 08/03/2022) TAKE 1 CAPSULE BY MOUTH EVERY DAY * HYDROcodone-acetaminophen ([place]) 10-325 MG tablet(Started 08/22/2022) Take 1 (one) tablet by mouth every 6 hours as needed for Pain * Ingrezza 40 MG capsule(Started 11/10/2022) Take one capsule by mouth daily 10 refills by 11/10/2023 * vitamin D (D-Vi-Eladia) 10 MCG (400 UNITS)/ML solution * hydroxychloroquine (Plaquenil) 200 MG tablet(Started 11/24/2022) Take 1 (one) tablet by mouth 2 times daily 3 refills by 11/24/2023 * diclofenac sodium (Voltaren) 1 % gel(Started 12/14/2022) Apply 4 (four) g to affected area 4 times daily 5 refills by 12/14/2023 * DULoxetine (Cymbalta) 20 MG capsule(Started 03/10/2023) Take 1 (one) capsule by mouth once daily * meloxicam (Mobic) 7.5 MG tablet(Started 03/22/2023) Take 1 (one) tablet by mouth once daily * ondansetron (Zofran) 4 MG tablet(Started 03/21/2023) TAKE 1 TABLET BY MOUTH EVERY 4 HOURS FOR 3 DOSES. TAKE 1ST DOSE 1-2 HOURS BEFORE RADIATION * pregabalin (Lyrica) 100 MG capsule(Started 03/10/2023) Take 1 (one) capsule by mouth once daily * topiramate (Topamax) 200 MG tablet(Started 01/27/2023) TAKE 1 TABLET BY ORAL ROUTE AT DINNER TIME OR BEDTIME * HYDROcodone-acetaminophen ([place]) 5-325 MG tablet(Started 03/22/2023) Take 1 (one) tablet by mouth every 12 hours as needed FOR PAIN * losartan-hydroCHLOROthiazide (Hyzaar) 100-12.5 MG tablet(Started 03/08/2023) Take 1 (one) tablet by mouth once daily * propranolol (Inderal) 20 MG tablet(Started 03/09/2023) Take 1 (one) tablet by mouth once daily Active Problems Problem Noted Date Diagnosed Date High risk medication use 08/25/2022 Undifferentiated connective tissue disease 08/25 Osteoarthritis of multiple joints 08/25/2022 Primary osteoarthritis of left knee 07/07/2022 Positive KETTY (antinuclear antibody) 04/14/2022 Fatigue 04/14/2022 Polyarthralgia 04/14/2022 Chronic low back pain 04/14/2022 Parkinson's disease 12/17/2021 Chronic bronchitis, unspecified chronic bronchit is type 12/17/2021 Infection following a procedure, subsequent enco unter 03/10/2017 Pyogenic arthritis 02/16/2017 Other lesions of median nerve, right upper limb 01/06/2017 Fibromyalgia 01/05/2017 Anxiety disorder 01/05/2017 Meralgia paresthetica 01/05/2017 Carpal tunnel syndrome of right wrist 01/05/2017 Radiculopathy of cervical region 01/05/2017 Cervicalgia 01/05/2017 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 01/05/2017 Lumbago with sciatica 01/05/2017 Resolved Problems Problem Noted Date Diagnosed Date Resolved Date Rash 04/14/2022 12/22/2022 Social History Tobacco Use Types Packs/Day Years Used Date Smoking Tobacco: Some Days Cigarettes Smokeless Tobacco: Never Tobacco Cessation:Ready to Q uit: Not Asked; Counseling Given: Not Answered Comments:STOP 3 DAYS BEFORE SURGERY Alcohol Use Standard Drinks/Week Comments No 0 (1 standard drink = 0.6 oz pur e alcohol) AUDIT-C Answer Date Recorded Q1: How often do you have a drink containing alc ohol? 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 OPERATOR Sexual Orientation Straight 01/11/2022 4: 28 AM BENZENE OPERATOR Last Filed Vital Signs Vital Sign Reading Time Taken Comments Blood Pressure 126/80 11/24/2022 8:30 AM CDT Pulse 105 09/06/2022 10:05 AM CDT Temperature 36.5 C (97.7 F) 09/06/2022 9:09 AM CDT Respiratory Rate 18 09/06/2022 10:05 AM CDT Oxygen Saturation 97% 09/06/2022 10:05 AM CDT Inhaled Oxygen Concentration - - Weight 96.6 kg (213 lb) 11/24/2022 8:30 AM CDT Height 165.1 cm (5' 5 ) 09/06/2022 9:09 AM CDT Body Mass Index 35.45 09/06/2022 9:09 AM CDT Procedures * KETTY BLOOD TITER(Performed 11/14/2022) Performed for Diffuse disease of connective tissue (HCC) * URINE MICROSCOPIC ONLY(Performed 11/14/2022) Performed for Diffuse disease of connective tissue (HCC) * PROTEIN CREATININE RATIO URINE RANDOM PNL(Performed 11/14/2022) Performed for Diffuse disease of connective tissue (HCC) * URINALYSIS REFLEX TO MICROSCOPIC NO CULTURE(Performed 11/14/2022) Performed for Diffuse disease of connective tissue (HCC) * COMPLEMENT TOTAL(Performed 11/14/2022) Performed for Diffuse disease of connective tissue (HCC) * COMPLEMENT C3(Performed 11/14/2022) Performed for Diffuse disease of connective tissue (HCC) * COMPLEMENT C4(Performed 11/14/2022) Performed for Diffuse disease of connective tissue (HCC) * KETTY BLOOD SCREEN W/REFLEX TITER(Performed 11/14/2022) Performed for Diffuse disease of connective tissue (HCC) * C-REACTIVE PROTEIN(Performed 11/14/2022) Performed for Diffuse disease of connective tissue (HCC) * ERYTHROCYTE SEDIMENTATION RATE(Performed 11/14/2022) Performed for Diffuse disease of connective tissue (HCC) * COMPREHENSIVE METABOLIC PANEL(Performed 11/14/2022) Performed for Diffuse disease of connective tissue (HCC) * CBC W AUTO DIFFERENTIAL(Performed 11/14/2022) Performed for Diffuse disease of connective tissue (HCC) * PAIN MANAGEMENT PROCEDURE TIME(Performed 09/06/2022) Performed for Lumbar radicular pain * MRI LUMBAR SPINE WO CONTRAST(Performed 08/12/2022) Performed for Chronic bilateral low back pain, unspecified whether sciatica present * FL GUIDED NEEDLE PLACEMENT(Performed 08/02/2022) Performed for Primary osteoarthritis of left hip * IMAGING/RADIOLOGY/XRAY RESULTS ORDER(Performed 07/27/2022) * INTERPRETATION REFLEXED(Performed 07/06/2022) Performed for Positive KETTY (antinuclear antibody), Rash, Polyarthralgia, Fatigue, unspecified type * URINALYSIS MICROSCOPIC ONLY REFLEXED(Performed 07/06/2022) Performed for Positive KETTY (antinuclear antibody), Rash, Polyarthralgia, Fatigue, unspecified type * EARLY SJOGREN'S SYNDROME PROFILE(Performed 07/06/2022) Performed for Positive KETTY (antinuclear antibody), Rash, Polyarthralgia, Fatigue, unspecified type * IGG SUBCLASS 4(Performed 07/06/2022) Performed for Positive KETTY (antinuclear antibody), Rash, Polyarthralgia, Fatigue, unspecified type * HEPATITIS SCREEN ACUTE ([facility])(Performed 07/06/2022) Performed for Positive KETTY (antinuclear antibody), Rash, Polyarthralgia, Fatigue, unspecified type * PROTEIN CREATININE RATIO URINE RANDOM PNL(Performed 07/06/2022) Performed for Positive KETTY (antinuclear antibody), Rash, Polyarthralgia, Fatigue, unspecified type * URINALYSIS W/MICROSCOPIC NO CULTURE(Performed 07/06/2022) Performed for Positive KETTY (antinuclear antibody), Rash, Polyarthralgia, Fatigue, unspecified type * QUANTIFERON TB-GOLD(Performed 07/06/2022) Performed for Positive KETTY (antinuclear antibody), Rash, Polyarthralgia, Fatigue, unspecified type * CRYOGLOBULIN SCREEN W/ REFLEX(Performed 07/06/2022) Performed for Positive KETTY (antinuclear antibody), Rash, Polyarthralgia, Fatigue, unspecified type * ANGIOTENSIN CONVERTING ENZYME BLOOD(Performed 07/06/2022) Performed for Positive KETTY (antinuclear antibody), Rash, Polyarthralgia, Fatigue, unspecified type * MYOSITIS ANTIBODY PANEL COMPREHENSIVE(Performed 07/06/2022) Performed for Positive KETTY (antinuclear antibody), Rash, Polyarthralgia, Fatigue, unspecified type * ALDOLASE(Performed 07/06/2022) Performed for Positive KETTY (antinuclear antibody), Rash, Polyarthralgia, Fatigue, unspecified type * CK BLOOD(Performed 07/06/2022) Performed for Positive KETTY (antinuclear antibody), Rash, Polyarthralgia, Fatigue, unspecified type * COMPLEMENT C3 C4 PANEL(Performed 07/06/2022) Performed for Positive KETTY (antinuclear antibody), Rash, Polyarthralgia, Fatigue, unspecified type * URIC ACID BLOOD(Performed 07/06/2022) Performed for Positive KETTY (antinuclear antibody), Rash, Polyarthralgia, Fatigue, unspecified type * HLA TYPING B27(Performed 07/06/2022) Performed for Positive KETTY (antinuclear antibody), Rash, Polyarthralgia, Fatigue, unspecified type * VITAMIN B12(Performed 07/06/2022) Performed for Positive KETTY (antinuclear antibody), Rash, Polyarthralgia, Fatigue, unspecified type * VITAMIN D 25-HYDROXY(Performed 07/06/2022) Performed for Positive KETTY (antinuclear antibody), Rash, Polyarthralgia, Fatigue, unspecified type * TSH(Performed 07/06/2022) Performed for Positive KETTY (antinuclear antibody), Rash, Polyarthralgia, Fatigue, unspecified type * C-REACTIVE PROTEIN(Performed 07/06/2022) Performed for Positive KETTY (antinuclear antibody), Rash, Polyarthralgia, Fatigue, unspecified type * ERYTHROCYTE SEDIMENTATION RATE(Performed 07/06/2022) Performed for Positive KETTY (antinuclear antibody), Rash, Polyarthralgia, Fatigue, unspecified type * COMPREHENSIVE METABOLIC PANEL(Performed 07/06/2022) Performed for Positive KETTY (antinuclear antibody), Rash, Polyarthralgia, Fatigue, unspecified type * CBC W AUTO DIFFERENTIAL(Performed 07/06/2022) Performed for Positive KETTY (antinuclear antibody), Rash, Polyarthralgia, Fatigue, unspecified type * GLUCOSE - POINT OF CARE(Performed 04/18/2022) * SD REVISE MEDIAN N/CARPAL TUNNEL SURG(Performed 04/18/2022) Performed for Carpal tunnel syndrome, unspecified laterality, Cubital tunnel syndrome, unspecified laterality, Guyon syndrome, left * TRANSPOSITION / RELEASE ULNAR NERVE (CUBITAL TUNNEL/ELBOW)(Performed 04/18/2022) Performed for Carpal tunnel syndrome, unspecified laterality, Cubital tunnel syndrome, unspecified laterality, Guyon syndrome, left * LAB RESULTS ORDER(Performed 04/18/2022) * XR PELVIS W BILAT HIP 2VW(Performed 04/14/2022) Performed for Positive KETTY (antinuclear antibody), Rash, Polyarthralgia, Fatigue, unspecified type * XR KNEE BILAT 2VW OR LESS(Performed 04/14/2022) Performed for Positive KETTY (antinuclear antibody), Rash, Polyarthralgia, Fatigue, unspecified type * MRI BRAIN WWO CONTRAST(Performed 03/14/2022) Performed for Headache disorder * FL GUIDED NEEDLE PLACEMENT(Performed 02/18/2022) Performed for Left hip pain * XR PELVIS W LEFT HIP 2VW(Performed 01/11/2022) Performed for Hip pain, acute, left * PATHOLOGY TISSUE EXAM (STL)(Performed 12/31/2021) Performed for Abdominal pain, LLQ (left lower quadrant), Constipation, unspecified constipation type * ENDOSCOPY, COLON, DIAGNOSTIC(Performed 12/31/2021) Performed for Abdominal pain, LLQ (left lower quadrant), Constipation, unspecified constipation type * SD COLONOSCOPY, DIAGNOSTIC(Performed 12/31/2021) Performed for Abdominal pain, LLQ (left lower quadrant), Constipation, unspecified constipation type * GLUCOSE - POINT OF CARE(Performed 12/31/2021) * COMPREHENSIVE METABOLIC PANEL(Performed 12/17/2021) Performed for Abdominal pain, LLQ (left lower quadrant) * CBC W AUTO DIFFERENTIAL(Performed 12/17/2021) Performed for Abdominal pain, LLQ (left lower quadrant) * SHERRIE STAINING PATTERNS REFLEXED(Performed 12/17/2021) Performed for Numbness * IMMUNOFIXATION BLOOD(Performed 12/17/2021) Performed for Numbness * PROTEIN ELECTROPHORESIS BLOOD(Performed 12/17/2021) Performed for Numbness * TREPONEMA PALLIDUM POS REFLX RPR(Performed 12/17/2021) Performed for Numbness * CK BLOOD(Performed 12/17/2021) Performed for Numbness * VITAMIN B12 FOLATE PANEL(Performed 12/17/2021) Performed for Numbness * KETTY BLOOD SCREEN W/REFLEX TITER(Performed 12/17/2021) Performed for Numbness * TSH REFLEX FREE T4(Performed 12/17/2021) Performed for Numbness * C-REACTIVE PROTEIN(Performed 12/17/2021) Performed for Numbness * ERYTHROCYTE SEDIMENTATION RATE(Performed 12/17/2021) Performed for Numbness * CT ABDOMEN PELVIS W CONTRAST(Performed 12/15/2021) Performed for Abdominal pain, LLQ (left lower quadrant) * ISTAT CREATININE(Performed 12/15/2021) * XR ABDOMEN KUB(Performed 12/01/2021) Performed for Abdominal pain, LLQ (left lower quadrant), Constipation, unspecified constipation type * XR LUMBAR SPINE 2 OR 3VW(Performed 11/08/2021) Performed for Right-sided low back pain with right-sided sciatica, unspecified chronicity * CT ABDOMEN PELVIS W CONTRAST(Performed 07/26/2020) Performed for Abdominal pain, left upper quadrant * LIPASE BLOOD(Performed 07/26/2020) * COMPREHENSIVE METABOLIC PANEL(Performed 07/26/2020) * CBC W AUTO DIFFERENTIAL(Performed 07/26/2020) * BASIC METABOLIC PANEL (CALCIUM TOTAL)(Performed 03/17/2017) * CBC W/O DIFFERENTIAL(Performed 03/17/2017) * GLUCOSE ACCUCHECK(Performed 03/16/2017) * GLUCOSE ACCUCHECK(Performed 03/16/2017) * VANCOMYCIN LEVEL TROUGH(Performed 03/16/2017) * GLUCOSE ACCUCHECK(Performed 03/16/2017) * GLUCOSE ACCUCHECK(Performed 03/16/2017) * CBC W/O DIFFERENTIAL(Performed 03/16/2017) * BASIC METABOLIC PANEL (CALCIUM TOTAL)(Performed 03/16/2017) * GLUCOSE ACCUCHECK(Performed 03/15/2017) * GLUCOSE ACCUCHECK(Performed 03/15/2017) * GLUCOSE ACCUCHECK(Performed 03/15/2017) * TYPE + SCREEN PANEL(Performed 03/15/2017) * CBC W/O DIFFERENTIAL(Performed 03/15/2017) * ALBUMIN BLOOD(Performed 03/15/2017) * VANCOMYCIN LEVEL TROUGH(Performed 03/15/2017) * BASIC METABOLIC PANEL (CALCIUM TOTAL)(Performed 03/15/2017) * BASIC METABOLIC PANEL (CALCIUM TOTAL)(Performed 03/14/2017) * CBC W/O DIFFERENTIAL(Performed 03/14/2017) * CULTURE FUNGUS OTHER+FUNGUS SMEAR(Performed 03/13/2017) * CULTURE AFB+SMEAR(Performed 03/13/2017) * CULTURE ANAEROBE(Performed 03/13/2017) * CULTURE AEROBIC(Performed 03/13/2017) * CULTURE FUNGUS OTHER+FUNGUS SMEAR(Performed 03/13/2017) * CULTURE AFB+SMEAR(Performed 03/13/2017) * CULTURE ANAEROBE(Performed 03/13/2017) * CULTURE AEROBIC(Performed 03/13/2017) * CBC W AUTO DIFFERENTIAL(Performed 03/13/2017) * CBC W AUTO DIFFERENTIAL(Performed 03/13/2017) * CULTURE BLOOD(Performed 03/13/2017) * CULTURE BLOOD(Performed 03/13/2017) * COMPREHENSIVE METABOLIC PANEL(Performed 03/13/2017) * VANCOMYCIN LEVEL TROUGH(Performed 03/13/2017) * GLUCOSE ACCUCHECK(Performed 03/12/2017) * GLUCOSE ACCUCHECK(Performed 03/12/2017) * GLUCOSE ACCUCHECK(Performed 03/11/2017) * GLUCOSE ACCUCHECK(Performed 03/11/2017) * GLUCOSE ACCUCHECK(Performed 03/11/2017) * GLUCOSE ACCUCHECK(Performed 03/11/2017) * GLUCOSE ACCUCHECK(Performed 03/10/2017) * GLUCOSE ACCUCHECK(Performed 03/10/2017) * CULTURE FUNGUS OTHER+FUNGUS SMEAR(Performed 03/10/2017) * CULTURE AFB+SMEAR(Performed 03/10/2017) * CULTURE AEROBIC(Performed 03/10/2017) * CULTURE ANAEROBE(Performed 03/10/2017) * CULTURE AEROBIC(Performed 03/10/2017) * CULTURE FUNGUS OTHER+FUNGUS SMEAR(Performed 03/10/2017) * CULTURE AFB+SMEAR(Performed 03/10/2017) * CULTURE ANAEROBE(Performed 03/10/2017) * CULTURE AEROBIC(Performed 03/10/2017) * CULTURE FUNGUS OTHER+FUNGUS SMEAR(Performed 03/10/2017) * CULTURE AEROBIC(Performed 03/10/2017) * CULTURE ANAEROBE(Performed 03/10/2017) * CULTURE AFB+SMEAR(Performed 03/10/2017) * CULTURE AEROBIC(Performed 03/10/2017) * CULTURE TISSUE+GRAM STAIN(Performed 03/10/2017) * TYPE + SCREEN PANEL(Performed 03/10/2017) * GLUCOSE ACCUCHECK(Performed 03/10/2017) * HCG URINE QUALITATIVE(Performed 03/10/2017) * GLUCOSE ACCUCHECK(Performed 03/09/2017) * GLUCOSE ACCUCHECK(Performed 03/09/2017) * VITAMIN D 25-HYDROXY(Performed 03/09/2017) * COMPREHENSIVE METABOLIC PANEL(Performed 03/09/2017) * HEMOGLOBIN A1C(Performed 03/09/2017) * CBC W AUTO DIFFERENTIAL(Performed 03/09/2017) * CBC W AUTO DIFFERENTIAL(Performed 03/09/2017) * GLUCOSE ACCUCHECK(Performed 03/09/2017) * GLUCOSE ACCUCHECK(Performed 02/20/2017) * BASIC METABOLIC PANEL (CALCIUM TOTAL)(Performed 02/20/2017) * CBC W/O DIFFERENTIAL(Performed 02/20/2017) * GLUCOSE ACCUCHECK(Performed 02/20/2017) * GLUCOSE ACCUCHECK(Performed 02/19/2017) * GLUCOSE ACCUCHECK(Performed 02/19/2017) * GLUCOSE ACCUCHECK(Performed 02/19/2017) * BASIC METABOLIC PANEL (CALCIUM TOTAL)(Performed 02/19/2017) * CBC W/O DIFFERENTIAL(Performed 02/19/2017) * GLUCOSE ACCUCHECK(Performed 02/19/2017) * GLUCOSE ACCUCHECK(Performed 02/19/2017) * GLUCOSE ACCUCHECK(Performed 02/18/2017) * GLUCOSE ACCUCHECK(Performed 02/18/2017) * GLUCOSE ACCUCHECK(Performed 02/18/2017) * BASIC METABOLIC PANEL (CALCIUM TOTAL)(Performed 02/18/2017) * VANCOMYCIN LEVEL TROUGH(Performed 02/18/2017) * CBC W/O DIFFERENTIAL(Performed 02/18/2017) * GLUCOSE ACCUCHECK(Performed 02/18/2017) * GLUCOSE ACCUCHECK(Performed 02/18/2017) * GLUCOSE ACCUCHECK(Performed 02/17/2017) * GLUCOSE ACCUCHECK(Performed 02/17/2017) * GLUCOSE ACCUCHECK(Performed 02/17/2017) * BASIC METABOLIC PANEL (CALCIUM TOTAL)(Performed 02/17/2017) * CULTURE ANAEROBE(Performed 02/17/2017) * CULTURE AEROBIC(Performed 02/17/2017) * CULTURE ANAEROBE(Performed 02/17/2017) * CULTURE AEROBIC(Performed 02/17/2017) * GLUCOSE ACCUCHECK(Performed 02/17/2017) * HCG BETA BLOOD QUANTITATIVE(Performed 02/17/2017) * TYPE + SCREEN PANEL(Performed 02/17/2017) * GLUCOSE ACCUCHECK(Performed 02/17/2017) * CBC W AUTO DIFFERENTIAL(Performed 02/16/2017) * DIFFERENTIAL MANUAL(Performed 02/16/2017) * CBC W AUTO DIFFERENTIAL(Performed 02/16/2017) * CARDIAC RHYTHM STRIP ORDER(Performed 02/09/2017) * PATHOLOGY TISSUE EXAM (STL)(Performed 02/06/2017) Performed for Pronator teres syndrome of right upper extremity, Carpal tunnel syndrome of right wrist * ENDOTRACHEAL TUBE NOTE(Performed 02/06/2017) * TENOSYNOVECTOMY EXTENSOR *(Performed 02/06/2017) Performed for Pronator teres syndrome of right upper extremity, Carpal tunnel syndrome of right wrist * RELEASE CARPAL TUNNEL(Performed 02/06/2017) Performed for Pronator teres syndrome of right upper extremity, Carpal tunnel syndrome of right wrist * RELEASE NERVE ULNAR ELBOW(Performed 02/06/2017) Performed for Pronator teres syndrome of right upper extremity, Carpal tunnel syndrome of right wrist * HCG URINE QUALITATIVE - POCT (IP) ZAHIDA(Performed 02/06/2017) * GROSS + MICRO EXAM(Performed 08/31/1994) Results * (ABNORMAL) URINALYSIS REFLEX TO MICROSCOPIC NO CULTURE (11/14/2022 4:59 PM CDT) Color UA Yellow Straw, Yellow 11/14/2022 6:01 PM T [facility] Clarity UA Cloudy(A) Clear 11/14/2022 6:01 PM CDT [facility] Glucose UA Negative Negative 11/14/2022 6:01 PM CDT [facility] Bilirubin UA Negative Negative 11/14/2022 6:01 PM CDT [facility] Ketone UA Negative Negative 11/14/2022 6:01 PM CDT [facility] Specific [place] UA 1.025 1.005 - 1.030 11/14/2022 6:01 PM CDT [facility] Blood UA 2+(A) Negative 11/14/2022 6:01 PM CDT [facility] pH UA 5.0 5.0 - 8.0 pH 11/14/2022 6:01 PM CDT [facility] Protein UA 1+(A) Negative 11/14/2022 6:01 PM CDT -[facility] Urobilinogen UA 2.0(A) Negative mg/dL 11/14/2022 6:01 PM CDT [facility] Nitrite UA Negative Negative 11/14/2022 6:01 PM T -[facility] Leukocyte UA 1+(A) Negative 11/14/2022 6:01 PM T -[facility] Urine Microscopy Urine microscopy to follow 11/14/2022 6:01 PM T [facility] Urine URINE SPECIMEN OBTAINED BY CLEAN CATCH PROCEDURE / Unknown Collection / Unknown 11/14/2022 4:59 PM CDT 11/14/2022 5:53 PM CDT [facility] - 11/14/2022 6:01 PM CDT Ascorbic Acid can cause false negative urine strip tests for blood, glucose, nitrite, and bilirubin. Adelina Trinidad DO LAB - URINALYSIS ORD ERABLES Performing Organization Address [facility]/ZIP Co de Phone Number [facility] [address] [place] [address] * (ABNORMAL) URINE MICROSCOPIC ONLY (11/14/2022 4:59 PM CDT) RBC UA >100(A) 0 - 5 # /hpf 11/14/2022 6:04 PM CDT [facility] WBC UA 21-50(A) 0 - 5 # /hpf 11/14/2022 6:04 PM CDT [facility] Hyaline Casts >20(A) 0 - 2 /LPF 11/14/2022 6:04 PM CDT [facility] Calcium Oxalate Crystals Many(A) None seen /HPF 11/14/2022 6:04 PM CDT [facility] Bacteria UA Trace(A) None Seen 11/14/2022 6:04 PM CDT [facility] Squamous Epithelial Cells >20(A) 0 - 5 /hpf 11/14/2022 6:04 PM CDT [facility] Mucus UA 4+ /LPF 11/14/2022 6:04 PM CDT [facility] Urine URINE SPECIMEN OBTAINED BY CLEAN CATCH PROCEDURE / Unknown Collection / Unknown 11/14/2022 4:59 PM CDT 11/14/2022 5:53 PM CDT Narrative -[facility] - 11/14/2022 6:04 PM CDT Adelina Trinidad DO LAB - URINALYSIS ORD ERABLES [facility] [address] [place] [address] * C-REACTIVE PROTEIN (11/14/2022 4:59 PM CDT) Only the most recent of3 resultswithin the time period is included. C-Reactive Protein 0.11 <=0.50 mg/dL 11/14/2022 5:30 PM CDT [facility] Blood BLOOD SPECIMEN / Unknown Lab Venipuncture / Unknown 11/14/2022 4:59 PM CDT 11/14/2022 5:08 PM CDT Adelina Trinidad DO LAB - CHEMISTRY TIKA JORDAN [facility] [address] [place] [id number] * (ABNORMAL) KETTY BLOOD TITER (11/14/2022 4:59 PM CDT) Speckled 1:80(A) <1:80 11/16/2022 11:53 AM CDT [facility] Blood BLOOD SPECIMEN / Unknown Lab Venipuncture / Unknown 11/14/2022 4:59 PM CDT 11/14/2022 5:08 PM CDT Narrative [facility] - 11/16/2022 11:53 AM CDT Methodology: Indirect Immunofluorescence Assay (IFA) utilizing Hep-2-Gamma cells. Adelina Trinidad [employer] CHEMISTRY DAVIDJamii JULIAN Performing Organization Address [facility] Co de Phone Number [facility] [address] [place] [address] * (ABNORMAL) KETTY BLOOD SCREEN W/REFLEX TITER (11/14/2022 4:59 PM CDT) Only the most recent of2 resultswithin the time period is included. KETTY Positive(A ) Negative 11/16/2022 11:53 AM CDT [facility] Blood BLOOD SPECIMEN / Unknown Lab Venipuncture / Unknown 11/14/2022 4:59 PM CDT 11/14/2022 5:08 PM CDT Narrative [facility] - 11/16/2022 11:53 AM CDT Methodology: Indirect Immunofluorescence Assay (IFA) utilizing Hep-2-Gamma cells. [employer] LAB - CHEMISTRY NONO [facility] [address] [place] [address] * COMPLEMENT TOTAL (11/14/2022 4:59 PM CDT) Pathologist [facility] Complement Total CH50 >60 >41 U/mL 11/16/2022 3:07 PM CDT [facility] ([facility]) Comment: Age Male Female 1 - 30 days Not Estab. Not Estab. 31 days - 6 months >32 >20 7 months - 17 years >39 >39 >17 years >41 >41 NOTE: The adult ( >17 years ) reference interval range is used to flag abnormals on this report. If the patient is 17 years old or younger, use the table above to determine out of range values. Blood BLOOD SPECIMEN / Unknown Lab Venipuncture / Unknown 11/14/2022 4:59 PM CDT 11/14/2022 5:08 PM CDT Narrative [facility] ([facility]) - 11/16/2022 3:07 PM CDT Performed at: [address] [place] [id number] Multimedia Services Manager: Valerio Marks PhD, Phone: [phone] Adelina Trinidad DO LAB - CHEMISTRY ORDE RABNANCY Performing Organization Address City/[facility]/ZIP Co de Phone Number [facility]) [address] [place] [address] * ERYTHROCYTE SEDIMENTATION RATE (11/14/2022 4:59 PM CDT) Only the most recent of3 resultswithin the time period is included. [facility] Erythrocyte Sedimentation Rate Automated 18 0 - 30 MM/HR 11/14/2022 5:18 PM CDT [facility] Blood BLOOD SPECIMEN / Unknown Lab Venipuncture / Unknown 11/14/2022 4:59 PM CDT 11/14/2022 5:08 PM CDT Adelina Trinidad DO LAB - HEMATOLOGY ORD ERABLES [facility] [address] [place] [id number] * (ABNORMAL) CBC WITH DIFFERENTIAL (11/14/2022 4:59 PM CDT) Only the most recent of10 resultswithin the time period is included. WBC 6.1 4.4 - 10.7 x10E9/L 11/14/2022 5:12 PM CDT [facility] WBC Corrected 11/14/2022 5:12 PM CDT [facility] RBC 4.42 3.80 - 5.20 x10E12/L 11/14/2022 5:12 PM CDT [facility] Hemoglobin 13.3 12.0 - 15.6 gm/dL 11/14/2022 5:12 PM CDT [facility] Hematocrit 40.2 35.9 - 45.5 % 11/14/2022 5:12 PM CDT [facility] MCV 91.0 80.7 - 98.3 fl 11/14/2022 5:12 PM CDT [facility] MCH 30.1 26.7 - 34.0 pg 11/14/2022 5:12 PM CDT [facility] MCHC 33.1 30.8 - 35.9 gm/dL 11/14/2022 5:12 PM CDT [facility] Platelet Count 178 153 - 416 x10E9/L 11/14/2022 5:12 PM CDT [facility] RDW-CV 12.8 12.1 - 14.9 % 11/14/2022 5:12 PM CDT [facility] MPV 11.3 9.4 - 12.9 fl 11/14/2022 5:12 PM CDT [facility] Neutrophils % 46.5 44.0 - 73.0 % 11/14/2022 5:12 PM CDT [facility] Lymphocytes % 44.7(H) 20.0 - 43.0 % 11/14/2022 5:12 PM CDT [facility] Monocytes % 5.9 5.0 - 13.0 % 11/14/2022 5:12 PM CDT [facility] Eosinophils % 2.0 0.0 - 6.0 % 11/14/2022 5:12 PM CDT [facility] Basophils % 0.7 0.0 - 2.0 % 11/14/2022 5:12 PM CDT [facility] Immature Granulocytes 0.2 0 - 1 % 11/14/2022 5:12 PM CDT [facility] Neutrophil Absolute 2.82 2.01 - 7.14 x10E9/L 11/14/2022 5:12 PM CDT [facility] Lymphocytes Absolute 2.71 1.07 - 3.94 x10E9/L 11/14/2022 5:12 PM CDT [facility] Monocytes Absolute 0.36 0.26 - 1.07 x10E9/L 11/14/2022 5:12 PM CDT -[facility] Eosinophils Absolute 0.12 0 - 0.47 x10E9/L 11/14/2022 5:12 PM CDT -[facility] Basophils Absolute 0.04 0 - 0.08 x10E9/L 11/14/2022 5:12 PM CDT -[facility] Immature Granulocytes Absolute 0.01 0.00 - 0.06 x10E9/L 11/14/2022 5:12 PM CDT [facility] nRBC Auto 0 /100 WBC 11/14/2022 5:12 PM CDT [facility] Blood BLOOD SPECIMEN / Unknown Lab Venipuncture / Unknown 11/14/2022 4:59 PM CDT 11/14/2022 5:08 PM CDT Adelina Trinidad DO LAB - HEMATOLOGY ORD ERABLES [facility] [address] [place] [address] * COMPLEMENT C4 (11/14/2022 4:59 PM CDT) Complement C4 41 15 - 57 mg/dL 11/14/2022 10:15 PM CDT [facility] Blood BLOOD SPECIMEN / Unknown Lab Venipuncture / Unknown 11/14/2022 4:59 PM CDT 11/14/2022 5:08 PM CDT Adelina Vivi DO LAB - SEROLOGY ORDER ASHLEY [facility] [address] [place] [address], [facility] [phone] * (ABNORMAL) COMPREHENSIVE METABOLIC PANEL (11/14/2022 4:59 PM CDT) Only the most recent of6 resultswithin the time period is included. Glucose 82 70 - 105 mg/dL 11/14/2022 5:30 PM CDT [facility] Sodium 142 136 - 145 mmol/L 11/14/2022 5:30 PM CDT [facility] Potassium 3.8 3.5 - 5.1 mmol/L 11/14/2022 5:30 PM CDT [facility] Chloride 111(H) 98 - 107 mmol/L 11/14/2022 5:30 PM CDT [facility] CO2 22 22 - 29 mmol/L 11/14/2022 5:30 PM CDT [facility] Calcium 9.4 8.4 - 10.4 mg/dL 11/14/2022 5:30 PM CDT [facility] Anion Gap 9 6 - 16 mmol/L 11/14/2022 5:30 PM CDT [facility] BUN 10 7 - 26 mg/dL 11/14/2022 5:30 PM CDT [facility] Creatinine 0.83 0.57 - 1.11 mg/dL 11/14/2022 5:30 PM CDT [facility] Alkaline Phosphatase 75 40 - 150 U/L 11/14/2022 5:30 PM CDT [facility] ALT 11 0 - 55 U/L 11/14/2022 5:30 PM CDT [facility] AST 13 5 - 34 U/L 11/14/2022 5:30 PM CDT [facility] Protein Total 7.1 6.4 - 8.3 gm/dL 11/14/2022 5:30 PM CDT [facility] Albumin 3.8 3.4 - 5.0 gm/dL 11/14/2022 5:30 PM CDT [facility] Bilirubin Total 0.4 0.2 - 1.2 mg/dL 11/14/2022 5:30 PM CDT [facility] eGFR by CKD-EPI 84(L) >=90 mL/min/1.7 3 m2 11/14/2022 5:30 PM CDT [facility] Blood BLOOD SPECIMEN / Unknown Lab Venipuncture / Unknown 11/14/2022 4:59 PM CDT 11/14/2022 5:08 PM CDT Adelina Trinidad DO LAB - CHEMISTRY ORDE RABLES [facility] [address] [place] [address] * (ABNORMAL) PROTEIN CREATININE RATIO URINE RANDOM PNL (11/14/2022 4:59 PM CDT) Only the most recent of2 resultswithin the time period is included. Protein Urine 22.7(H) <11.9 mg/dL 11/14/2022 6:12 PM CDT [facility] Creatinine Urine 310.77 mg/dL 11/14/2022 6:12 PM CDT [facility] Protein/Creatin ine Ratio Urine 0.07 11/14/2022 6:12 PM CDT [facility] Urine URINE SPECIMEN OBTAINED BY CLEAN CATCH PROCEDURE / Unknown Collection / Unknown 11/14/2022 4:59 PM CDT 11/14/2022 5:53 PM CDT Adelina Trinidad DO LAB - URINE CHEMISTR Y ORDERABLES [facility] [address] [place] [address] * COMPLEMENT C3 (11/14/2022 4:59 PM CDT) Complement C3 136 82 - 193 mg/dL 11/14/2022 10:14 PM CDT [facility] Blood BLOOD SPECIMEN / Unknown Lab Venipuncture / Unknown 11/14/2022 4:59 PM CDT 11/14/2022 5:08 PM CDT Adelina Trinidad DO LAB - CHEMISTRY TIKA [facility]AN [facility] [address] [place] [address], [facility] [phone] * PAIN MANAGEMENT PROCEDURE TIME (09/06/2022 10:11 AM CDT) Anatomical Region Laterality Modality X-Ray Angiograph y Narrative 09/06/2022 9:54 AM CDT Franco Jacobson MD 09/06/2022 10:41 AM Lumbar Transforaminal Epidural Steroid Injection with Fluoroscopic Guidance 09/06/2022 PreProcedure Diagnosis: Lumbar radicular pain Surgeon: Franco Jacobson MD The procedure was performedat the Bilateral L4-L5 level(s). The patient was interviewed and examined in the pre-procedural area. The H&P was updated and informed consent was obtained. The patient was taken to the procedural area and placed in the prone position. After a time out for safety, the usual sterile prep of the skin was done, including 2 preps with chlorhexidine and draped out with sterile towels. Strict aseptic precautions were used throughout the entire procedure. 1% Lidocaine was used via a 27 Gauge needle for skin weal. Then a 22 gauge 6 spinal needle was guided, using Intermittent, lateral, and oblique fluoroscopy, into the foramen @ L4-L5 and positioned in the posterior superior quarter of the foramen. 1 cc of radiopaque contrast dye was injected, via the (each) needle with digital subtraction. The contrast outlined the respective nerve root with passage into the epidural space. No intravascular contrast was noted. Then, after negative aspiration 7.5mg of dexamethasone with 1cc of preservative-free saline and 0.5 cc of 1 percent lidocaine was injected (@ each level). The needle(s) was(were) flushed with normal saline and removed. The area was cleaned and a sterile dressing was applied. The patient tolerated the procedure well and there were no complications. The patient remained in stable condition with no apparent complications. Postprocedure instructions were given to the patient and follow up was discussed. The patient was also discharged with information on how to reach the clinic for questions or complaints. Complications: none PostProcedure Diagnosis: Lumbar radicular pain Franco Jacobson MD DIAGNOSTIC IMAGI NG ORDERABLES * MRI LUMBAR SPINE WO CONTRAST (08/12/2022 11:03 AM CDT) Anatomical Region Laterality Modality Spine Magnetic Resonan ce 08/12/2022 1:40 PM CDT Impressions 08/12/2022 2:24 PM CDT IMPRESSION: Lumbar style S1 vertebral body. 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 To assess the clinical significance of these findings, please correlate with the specific radicular distribution of the patient's symptoms. No acute fracture or traumatic malalignment. Edited by Amy Magallon on 08/12/2022 1:57 PM > Interpreting Provider: Juan Arita MD on 08/12/2022 2:24 PM Narrative 08/12/2022 2:24 PM CDT PROCEDURE: MRI LUMBAR SPINE WO CONTRAST CLINICAL INFORMATION (none relevant/not provided if blank): INDICATION: M54.50: Low back pain, unspecified G89.29: Other chronic pain TECHNIQUE: Multiplanar, multisequence MR imaging without contrast of the spine; specific anatomic location as listed in the Procedure title above. RELEVANT COMPARISON: 12/11 CT abdomen and pelvis with standard reconstructions. FINDINGS: No imaging evidence of gallstones or pericholecystic inflammatory change. Given technique, no appreciable obstructing renal calculi, hydronephrosis or suspicious renal lesion. No lymphadenopathy. No significant air-fluid levels or small bowel dilatation consistent with bowel obstruction. There is a lumbar style S1 vertebral body. There is decreased signal intensity at the L4-S1 discs consistent with degenerative disc changes. There are relatively short pedicles in the spine. Conus terminates at L1 with normal signal intensity and morphology. L1-L2. No stenosis. L2-L3. No stenosis. L3-L4. Broad-based mild disc bulge with facet arthropathy and short pedicles. Mild right and left foraminal zone narrowing. L4-L5. Facet arthropathy, short pedicles, broad-based disc bulge and mild degenerative anterolisthesis. Sagittal image 8 and axial image 21, 6 mm central canal stenosis. Moderate-severe bilateral subarticular zone narrowing. Severe left and right foraminal zone narrowing. L5-S1. Short pedicles with broad-based disc bulge, right greater than left. Facet arthropathy. There is early/mild right facet cystic change/cyst measuring 9 x 6 mm transaxial without direct impingement changes. 11 mm central canal. Severe right subarticular narrowing. Severe bilateral foraminal zone narrowing. Procedure Note Juan Arita MD - 08/12/2022 PROCEDURE: MRI LUMBAR SPINE WO CONTRAST CLINICAL INFORMATION (none relevant/not provided if blank): INDICATION: M54.50: Low back pain, unspecified G89.29: Other chronic pain TECHNIQUE: Multiplanar, multisequence MR imaging without contrast of the spine; specific anatomic location as listed in the Procedure title above. RELEVANT COMPARISON: 12/11 CT abdomen and pelvis with standard reconstructions. FINDINGS: No imaging evidence of gallstones or pericholecystic inflammatorychange. Given technique, no appreciable obstructing renal calculi,hydronephrosis or suspicious renal lesion. No lymphadenopathy. No significant air-fluid levels or small bowel dilatation consistentwith bowel obstruction. There is a lumbar style S1 vertebral body. There is decreased signal intensity at the L4-S1 discs consistent with degenerative disc changes. There are relatively short pedicles in the spine. Conus terminates at L1 with normal signal intensity and morphology. L1-L2. No stenosis. L2-L3. No stenosis. L3-L4. Broad-based mild disc bulge with facet arthropathy and short pedicles. Mild right and left foraminal zone narrowing. L4-L5. Facet arthropathy, short pedicles, broad-based disc bulge andmild degenerative anterolisthesis. Sagittal image 8 and axial image 21, 6 mm central canal stenosis. Moderate-severe bilateral subarticular zone narrowing. Severe left and right foraminal zone narrowing. L5-S1. Short pedicles with broad-based disc bulge, right greater thanleft. Facet arthropathy. There is early/mild right facet cystic change/cyst measuring 9 x 6 mm transaxial without direct impingement changes. 11 mm central canal. Severe right subarticular narrowing. Severe bilateral foraminal zone narrowing. IMPRESSION: Lumbar style S1 vertebral body. 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 To assess the clinical significance of these findings,please correlate with the specific radicular distribution of the patient's symptoms. No acute fracture or traumatic malalignment. Edited by Amy Magallon on 08/12/2022 1:57 PM > Interpreting Provider: Juan Arita MD on 08/12/2022 2:24 PM Franco Jacobson MD MR ORDERABLES * FL GUIDED NEEDLE PLACEMENT (08/02/2022 2:45 PM CDT) Only the most recent of2 resultswithin the time period is included. Anatomical Region Laterality Modality Abdomen, Lung, Spine, Breast Rad io Fluoroscopy 08/02/2022 4:02 PM CDT Impressions 08/02/2022 4:03 PM CDT IMPRESSION: Left hip injection as discussed. 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 Medication injection requested. The risks and benefits of the procedure were explained to the patient on 08/02/2022 who indicated understanding. Technique: The patient was prepped and draped in the usual fashion. Following local anesthesia, and using fluoroscopic guidance, the left hip joint was accessed using a # 20 spinal needle. Following confirmation of the needle placement, a total of 6 mL 0.5% bupivacaine and 1 mL (80 mg/mL) Depo-Medrol was injected without incident. Fluoroscopy exposure time - 1.1 minutes. DAP - 273.69 (microGy*m2). Air kerma dose - 19.20 mGy. A fluoroscopic image was obtained for documentation. 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 Medication injection requested. The risks and benefits of the procedure were explained to the patient on 08/02/2022 who indicated understanding. Technique: The patient was prepped and draped in the usual fashion. Following local anesthesia, and using fluoroscopic guidance, the lefthip joint was accessed using a # 20 spinal needle. Following confirmation of the needle placement, a total of 6 mL 0.5% bupivacaine and 1 mL (80mg/mL) Depo-Medrol was injected without incident. Fluoroscopy exposure time - 1.1 minutes. DAP - 273.69 (microGy*m2). Air kerma dose - 19.20 mGy. A fluoroscopic image was obtained for documentation. IMPRESSION: Left hip injection as discussed. > Interpreting Provider: Yunior Carrington MD on 08/02/2022 4:03 PM Carla Wilhelm MD FLUOROSCOPY ORDERAB LES * IMAGING RADIOLOGY XRAY RESULTS ORDER (07/27/2022) Anatomical Region Laterality Modality Other 07/27/2022 Narrative 07/27/2022 Ordered by an unspecified provider. Scanned Document IMAGING * HEPATITIS SCREEN ACUTE ([facility]) (07/06/2022 11:34 AM CDT) Hepatitis A Virus Antibody IgM Negative Negative [facility] INSURANCE BILL Hepatitis B Virus Surface Antigen Negative Negative [facility] INSURANCE BILL Hepatitis B Core Virus Antibody IgM Negative Negative [facility] INSURANCE BILL Hepatitis C Antibody Non Reactive Non Reactive [facility] INSURANCE BILL Blood BLOOD SPECIMEN / Unknown 07/06/2022 11:34 AM CDT 07/06/2022 Narrative Resulting Agency Comment [facility]: [facility] [address] [facility] [phone] Adelina Trinidad DO LAB - CHEMISTRY TIKA JORDAN [facility] INSURANCE BILL [address] [place] [address] * INTERPRETATION REFLEXED (07/06/2022 11:34 AM CDT) Interpretation [facility] INSURANCE BILL Comment: Not infected with HCV unless early or acute infection is suspected (which may be delayed in an immunocompromised individual), or other evidence exists to indicate HCV infection. 07/06/2022 11:3 4 AM CDT 07/06/2022 Narrative Resulting Agency Comment Lab Testing performed at: [facility]] [address] [facility] [phone] Adelina Trinidad DO LAB - SEROLOGY ORDER ASHLEY [facility] INSURANCE BILL [address] [place] [address] * EARLY SJOGREN'S SYNDROME PROFILE (07/06/2022 11:34 AM CDT) Salivary Protein 1 Antibody IgG 1.1 EU/ml [facility] INSURANCE BILL Comment: Reference Range: Negative:< 20 EU/ml Borderline:20-25 EU/ml Positive:> 25 EU/ml Salivary Protein 1 Antibody IgA <1.0 EU/ml [facility] INSURANCE BILL Comment: Reference Range: Negative:< 20 EU/ml Borderline:20-25 EU/ml Positive:> 25 EU/ml Salivary Protein 1 Antibody IgM 1.0 EU/ml [facility] INSURANCE BILL Comment: Reference Range: Negative:< 20 EU/ml Borderline:20-25 EU/ml Positive:> 25 EU/ml Carbonic Anhydrase Antibody IgG 7.3 EU/ml [facility] INSURANCE BILL Comment: Reference Range: Negative:< 20 EU/ml Borderline:20-25 EU/ml Positive:> 25 EU/ml Carbonic Anhydrase Antibody IgA 5.1 EU/ml [facility] INSURANCE BILL Comment: Reference Range: Negative:< 20 EU/ml Borderline:20-25 EU/ml Positive:> 25 EU/ml Carbonic Anhydrase Antibody IgM 3.4 EU/ml [facility] INSURANCE BILL Comment: Reference Range: Negative:< 20 EU/ml Borderline:20-25 EU/ml Positive:> 25 EU/ml Parotid Specific Protein Antibody IgG 2.9 EU/ml [facility] INSURANCE BILL Comment: Reference Range: Negative:< 20 EU/ml Borderline:20-25 EU/ml Positive:> 25 EU/ml Parotid Specific Protein Antibody IgA 2.6 EU/ml [facility] INSURANCE BILL Comment: Reference Range: Negative:< 20 EU/ml Borderline:20-25 EU/ml Positive:> 25 EU/ml Parotid Specific Protein Antibody IgM 4.7 EU/ml [facility] INSURANCE BILL Comment: Reference Range: Negative:< 20 EU/ml Borderline:20-25 EU/ml Positive:> 25 EU/ml The novel antibodies salivary gland protein 1 (SP-1), carbonic anhydrase 6 (CA ) and parotid secretory protein (PSP) have shown to be present in animal models for Sjogren's syndrome (SS) and patients with the disease. The antibodies SP-1, CA and PSP occurred earlier in the course of the disease than antibodies to Ro or La. These antibodies were found in 45% of patients meeting the criteria for SS who lacked antibodies to Ro or La. Furthermore, in patients with idiopathic xerostomia and xerophthalmia for less than 2 years, 76% had antibodies to SP-1 and/or CA while only 31% had antibodies to Ro or La. Antibodies to SP-1, CA and PSP may be useful markers for identifying patients with SS at early stages of the disease or those that lack antibodies to either Ro or La. The presence of the antibodies to SP-1, CA and PSP should be correlated with clinical (dry mouth, dry eyes), serological (Ro, La, KETTY, RF) and histological (positive lymphocytic focus scores) findings in establishing a definitive diagnosis for SS. Manish Lebron et al. (2010). A role of lymphotxin in primary sjogren's syndrome. J Immunol; 185: 7159-6069. Manish Lebron et al. (2012). Novel autoantibodies in Sjogren's syndrome. Clinical Immunology;145, 251-255. *This test has been developed and performance parameters have been validated by [employer] This test has not been approved by the U.S. Food and Drug Administration (FDA); however, US FDA approval is not required for clinical use. It is not intended that clinical diagnosis and patient management decisions be made using these results alone. This test has been validated using serum samples. The television parts tester has not determined the efficacy of this test when performed on CSF, plasma, joint or pleural fluid specimens. The performance characteristics of this test were determined by [employer] Blood BLOOD SPECIMEN / Unknown 07/06/2022 11:34 AM CDT 07/06/2022 Narrative Resulting Agency Comment Lab Testing performed at: [email or web address] [address] [place] [phone] Adelina Trinidad DO LAB - SEROLOGY ORDER ASHLEY [facility] INSURANCE BILL [address] [place] [address] * IGG SUBCLASS 4 (07/06/2022 11:34 AM CDT) IgG Subclass 4 17 2 - 96 mg/dL [facility] INSURANCE BILL Blood BLOOD SPECIMEN / Unknown 07/06/2022 11:34 AM CDT 07/06/2022 Narrative Resulting Agency Comment Lab Testing performed at: [facility] [place] [address] [phone] Adelina Trinidad DO LAB - CHEMISTRY ORDE RABLES [facility] INSURANCE BILL [address] [place] [address] * (ABNORMAL) URINALYSIS MICROSCOPIC ONLY REFLEXED (07/06/2022 11:34 AM CDT) WBC UA 0-5 0 - 5 /hpf [facility] INSURANCE BILL RBC UA None seen 0 - 2 /hpf [facility] INSURANCE BILL Epithelial Cells (non renal) 0-10 0 - 10 /hpf [facility] INSURANCE BILL Epithelial Cells (renal) NOT AVAILABLE [facility] INSURANCE BILL Comment:Result cannot be obt ained for this observation. Casts ua None seen None seen /lpf [facility] INSURANCE BILL Casts UA NOT AVAILABLE [facility] INSURANCE BILL Comment:Result cannot be obt ained for this observation. Crystals UA Present(A) N/A [facility] INSURANCE BILL Crystals UA Calcium Oxalate N/A [facility] INSURANCE BILL Mucus UA Present Not Estab. [facility] INSURANCE BILL Bacteria UA Many(A) None seen/Few [facility] INSURANCE BILL Yeast UA NOT AVAILABLE [facility] INSURANCE BILL Comment:Result cannot be obt ained for this observation. Trichomonas UA NOT AVAILABLE [facility] INSURANCE BILL Comment:Result cannot be obt ained for this observation. Comment Urine NOT AVAILABLE [facility] INSURANCE BILL Comment:Result cannot be obt ained for this observation. 07/06/2022 11:3 4 AM CDT 07/06/2022 Narrative Resulting Agency Comment Lab Testing performed at: [facility] [place] [address] [facility] [phone] Adelina Trinidad DO LAB - URINALYSIS ORD ERABLES [facility] INSURANCE BILL [address] [place] [address] * (ABNORMAL) URINALYSIS W/MICROSCOPIC NO CULTURE (07/06/2022 11:34 AM CDT) Specific [place] UA 1.026 1.005 - 1.030 [facility] INSURANCE BILL pH UA 7.0 5.0 - 7.5 [facility] INSURANCE BILL Color UA Yellow Yellow [facility] INSURANCE BILL Appearance Clear Clear [facility] INSURANCE BILL Leukocyte UA Negative Negative [facility] INSURANCE BILL Protein UA Negative Negative/Tra ce [facility] INSURANCE BILL Glucose UA Negative Negative [facility] INSURANCE BILL Ketone UA Trace(A) Negative [facility] INSURANCE BILL Occult Blood Urine Negative Negative [facility] INSURANCE BILL Bilirubin UA Negative Negative [facility] INSURANCE BILL Urobilinogen 1.0 0.2 - 1.0 mg/dL [facility] INSURANCE BILL Nitrite UA Negative Negative [facility] INSURANCE BILL Microscopic Examination Urine [facility] INSURANCE BILL Comment:Microscopic follows if indicated. Microscopic Examination Urine See below: [facility] INSURANCE BILL Comment:Microscopic was cydney cated and was performed. Urine URINE SPECIMEN OBTAINED BY CLEAN CATCH PROCEDURE / Unknown 07/06/2022 11:34 AM CDT 07/06/2022 Narrative Resulting Agency Comment Lab Testing performed at: [facility] [place] [address] [facility] [phone] Adelina Trinidad DO LAB - URINALYSIS ORD ERABLES Performing Organization Address City/[facility]/ZIP Co de Phone Number [facility] INSURANCE BILL [address] [place] [address] * MYOSITIS ANTIBODY PANEL COMPREHENSIVE (07/06/2022 11:31 AM CDT) Evelina-1 Antibody <20 <20 Units [facility] INS[facility]ANCE BILL PL-7 Antibody Negative Negative [facility] BILL [facility]-12 Antibody Negative Negative [facility] INSURANCE BILL EJ Antibody Negative Negative [facility] INSURANCE BILL OJ Antibody Negative Negative [facility] INSURANCE BILL SRP Antibody Negative Negative [facility] INSURANCE BILL Mi-2 Antibody Negative Negative [facility] INSURANCE BILL TIF1-Gamma Antibody <20 <20 Units [facility] INSURANCE BILL MDA-5 Antibody <20 <20 Units [facility] INSURANCE BILL NXP-2 Antibody <20 <20 Units [facility] INSURANCE BILL PM/SCL 100 <20 <20 Units [facility] INSURANCE BILL KU Antibody Negative Negative [facility] INSURANCE BILL SS-A 52 Antibody <20 <20 Units [facility] INSURANCE BILL Anti-U1 ELECTROENCEPHALOGRAPHIC TECHNICIAN By EIA <20 <20 Units [facility] INSURANCE BILL U2 sn ELECTROENCEPHALOGRAPHIC TECHNICIAN Antibody Negative Negative [facility] INSURANCE BILL Fibrillarin (U3 ELECTROENCEPHALOGRAPHIC TECHNICIAN) Negative Negative [facility] INSURANCE BILL Comment: Interpretation for Anti-Evelina-1, Ddon-AKG-0zgokl, Anti-MDA-5, Anti-NXP-2, Anti-PM/Scl-100, Anti-SS-A 52 kD, Anti-U1 ELECTROENCEPHALOGRAPHIC TECHNICIAN: Negative: <20 Weak Positive: 20 - 39 Moderate Positive: 40 - 80 Strong Positive: >80 . Blood BLOOD SPECIMEN / Unknown 07/06/2022 11:31 AM CDT 07/06/2022 Narrative [facility] INSURANCE BILL - 07/24/2022 11:06 PM CDT Test(s) 071114-Pfxp-HU-8 Ab (RDL); 771514-Tlte-BS-84 Ab (RDL); 886126-Brae-XL Ab (RDL); 001895-Mmrf-WP Ab (RDL); 930567- Anti-SRP Ab (RDL); 509257-Oxmb-Ra-2 Ab (RDL); 281445- Vsck-PUS-1ebexe Ab (RDL); 996126-Icyx-BDR-9 Ab (CADM-140)(RDL); 362301-Fskp-CZD-4 (P140) Ab (RDL); 981670-Nzxe-FT/Scl-100 Ab (RDL); 681881-Vwma-Pd Ab (RDL); [id number]-Tzlp-EY-U 52kD Ab, IgG (RDL); 265903- was developed and its performance characteristics determined by [facility]. It has not been cleared or approved by the Food and Drug Administration. Resulting Agency Comment Lab Testing performed at: [employer] [address] [place] [phone] Adelina Trinidad DO LAB - CHEMISTRY ORDE RABNANCY Performing Organization Address [facility] Co de Phone Number [facility] INSURANCE BILL [address] [place] [address] * CRYOGLOBULIN SCREEN W/ REFLEX (07/06/2022 11:31 AM CDT) Pathologist [facility] Cryoglobulin Qualitative None detected [facility] INSURANCE BILL Comment: None Detected at 72 hours This test was developed and its performance characteristics determined by [facility]. It has not been cleared or approved by the Food and Drug Administration. Blood BLOOD SPECIMEN / Unknown 07/06/2022 11:31 AM CDT 07/06/2022 Narrative Resulting Agency Comment Lab Testing performed at: [facility] [address] [facility] [phone] Adelina Trinidad DO LAB - CHEMISTRY ORDE JULIAN Performing Organization Address [facility] Co de Phone Number [facility] INSURANCE BILL [address] [place] [address] * URIC ACID BLOOD (07/06/2022 11:31 AM CDT) Uric Acid 6.5 3.0 - 7.2 mg/dL [facility] INSURANCE BILL Comment:Therapeutic target f or gout patients: <6.0 Blood BLOOD SPECIMEN / Unknown 07/06/2022 11:31 AM CDT 07/06/2022 Narrative Resulting Agency Comment Lab Testing performed at: [facility] [place] [address] [facility] [phone] Adelina Trinidad DO LAB - CHEMISTRY ORDE JULIAN Performing Organization Address [facility]/ZIP Co de Phone Number [facility] INSURANCE BILL [address] [place] [address] * HLA TYPING B27 (07/06/2022 11:31 AM CDT) HLA-B27 Negative [facility] INSURANCE BILL Comment: HLA-B*27 Negative B27 allele interpretation for all loci based on IMGT/HLA database version 3.44 This test was developed and its performance characteristics determined by [facility]. It has not been cleared or approved by the Food and Drug Administration. [facility] CLIA ID Number [id number] . This test was performed using PCR (Polymerase Chain Reaction)/SSOP (Sequence Specific Oligonucleotide Probes) technique. SBT (Sequence Based Typing) and/or SSP (Sequence Specific Primers) may be used as supplemental methods when necessary. Please contact [facility] Customer Service at if you have any questions. . Director of HLA Laboratory Dr Sunny West, PhD Blood BLOOD SPECIMEN / Unknown 07/06/2022 11:31 AM CDT 07/06/2022 Narrative Resulting Agency Comment Lab Testing performed at: [facility] [address] [facility] [phone] Adelina Trinidad DO LAB - CHEMISTRY TIKA JORDAN [facility] INSURANCE BILL [address] [place] [address] * VITAMIN D 25-HYDROXY (07/06/2022 11:31 AM CDT) Only the most recent of2 resultswithin the time period is included. Pathologist [facility] Vitamin D, 25 Hydroxy 32.0 30.0 - 100.0 ng/mL [facility] INSURANCE BILL Comment: Vitamin D deficiency has been defined by the [place] of Medicine and an Endocrine Society practice guideline as a level of serum 25-OH vitamin D less than 20 ng/mL (1,2). The Endocrine Society went on to further define vitamin D insufficiency as a level between 21 and 29 ng/mL (2). 1. IOM ([place] of Medicine). 2010. Dietary reference intakes for calcium and D. [place]: The National Academies Press. 2. Jh MF, Mc FERNANDES, Johnnie LUTZ, et al. Evaluation, treatment, and prevention of vitamin D deficiency: an Endocrine Society clinical practice guideline. JCEM. 2010; 96(7):1911-30. Blood BLOOD SPECIMEN / Unknown 07/06/2022 11:31 AM CDT 07/06/2022 Narrative Resulting Agency Comment Lab Testing performed at: [facility] [address] [facility] [phone] Adelina Trinidad DO LAB - CHEMISTRY ORDE RABLES [facility] INSURANCE BILL [address] [place] [address] * ANGIOTENSIN CONVERTING ENZYME BLOOD (07/06/2022 11:31 AM CDT) Angiotensin-Con verting Enzyme 59 14 - 82 U/L [facility] INSURANCE BILL Blood BLOOD SPECIMEN / Unknown 07/06/2022 11:31 AM CDT 07/06/2022 Narrative Resulting Agency Comment Lab Testing performed at: [facility] [place] [address] [facility] [phone] Adelina Trinidad DO LAB - CHEMISTRY ORDE RABLES Performing Organization Address [facility]/ZIP Co de Phone Number [facility] INSURANCE BILL [address] [place] [address] * (ABNORMAL) ALDOLASE (07/06/2022 11:31 AM CDT) Aldolase 2.7(L) 3.3 - 10.3 U/L [facility] INSURANCE BILL Blood BLOOD SPECIMEN / Unknown 07/06/2022 11:31 AM CDT 07/06/2022 Narrative Resulting Agency Comment Lab Testing performed at: [facility] [place] [address] [facility] [phone] Adelina Trinidad DO LAB - CHEMISTRY ORDE RABLES Performing Organization Address City/[facility]/ZIP Co de Phone Number [facility] INSURANCE BILL [address] [place] [address] * QUANTIFERON TB-GOLD (07/06/2022 11:31 AM CDT) QuantiFERON Incubation Incubation performed. [facility] INSURANCE BILL QuantiFERON Criteria [facility] INSURANCE BILL Comment: QuantiFERON-TB Gold Plus is a qualitative indirect test for M tuberculosis infection (including disease) and is intended for use in conjunction with risk assessment, radiography, and other medical and diagnostic evaluations. The QuantiFERON-TB Gold Plus result is determined by subtracting the Nil value from either TB antigen (Ag) value. The Mitogen tube serves as a control for the test. QuantiFERON TB1 Ag Value 0.11 IU/mL [facility] INSURANCE BILL QuantiFERON TB2 Ag Value 0.18 IU/mL [facility] INSURANCE BILL QuantiFERON Nil Value 0.05 IU/mL [facility] INSURANCE BILL QuantiFERON Mitogen Value >10.00 IU/mL [facility] INSURANCE BILL QuantiFERON-TB Gold Plus Negative Negative [facility] INSURANCE BILL Comment: No response to M tuberculosis antigens detected. Infection with M tuberculosis is unlikely, but high risk individuals should be considered for additional testing (ATS/IDSA/CDC Clinical Practice Guidelines, 2017). The reference range is an Antigen minus Nil result of <0.35 IU/mL. Chemiluminescence immunoassay methodology Blood BLOOD SPECIMEN / Unknown 07/06/2022 11:31 AM CDT 07/06/2022 Narrative Resulting Agency Comment Lab Testing performed at: [facility] [phone] Adelina Trinidad DO LAB - CHEMISTRY TIKA JORDAN [facility] Organization Address City/State/ZIP Co de Phone Number [facility] INSURANCE BILL [address] [place] [address] * CK BLOOD (07/06/2022 11:31 AM CDT) Only the most recent of2 resultswithin the time period is included. Pathologist [facility] CK 180 32 - 182 U/L [facility] INSURANCE BILL Blood BLOOD SPECIMEN / Unknown 07/06/2022 11:31 AM CDT 07/06/2022 Narrative Resulting Agency Comment Lab Testing performed at: [facility] [phone] Adelina Trinidad DO LAB - CHEMISTRY ORDGene JORDAN [facility] INSURANCE BILL [address] [place] [address] * VITAMIN B12 (07/06/2022 11:31 AM CDT) Vitamin B12 932 232 - 1,245 pg/mL [facility] INSURANCE BILL Blood BLOOD SPECIMEN / Unknown 07/06/2022 11:31 AM CDT 07/06/2022 Narrative Resulting Agency Comment Lab Testing performed at: [facility] [place] [address] [facility] [phone] Adelina Trinidad DO LAB - CHEMISTRY ORDGene JORDAN Performing Organization Address City/[facility]/ZIP Co de Phone Number [facility] INSURANCE BILL [address] [place] [address] * (ABNORMAL) COMPLEMENT C3 C4 PANEL (07/06/2022 11:31 AM CDT) Complement C3 155 82 - 167 mg/dL [facility] INSURANCE BILL Complement C4 39(H) 12 - 38 mg/dL [facility] INSURANCE BILL Blood BLOOD SPECIMEN / Unknown 07/06/2022 11:31 AM CDT 07/06/2022 Narrative Resulting Agency Comment Lab Testing performed at: [facility] [address] [phone] Adelina Trinidad DO LAB - CHEMISTRY TIKA JORDAN Performing Organization Address City/[facility]/ZIP Co de Phone Number [facility] INSURANCE BILL [address] [place] [address] * TSH (07/06/2022 11:31 AM CDT) TSH 1.150 0.450 - 4.500 uIU/mL [facility] INSURANCE BILL Blood BLOOD SPECIMEN / Unknown 07/06/2022 11:31 AM CDT 07/06/2022 Narrative Resulting Agency Comment Lab Testing performed at: [facility] [place] [address] [facility] [phone] Adelina Trinidad DO LAB - CHEMISTRY TIKA JORDAN [facility] INSURANCE BILL [address] [place] [address] * (ABNORMAL) GLUCOSE - POINT OF CARE (04/18/2022 7:52 AM BENZENE OPERATOR) Only the most recent of2 resultswithin the time period is included. Glucose WB/POC 108(H) 70 - 106 mg/dL 04/18/2022 7:59 AM BENZENE OPERATOR [facility] Specimen Type Cap Fingerstick 2022 7:59 AM BENZENE OPERATOR [facility] Blood BLOOD SPECIMEN / Unknown 04/18/2022 7:52 AM BENZENE OPERATOR 04/18/2022 7:59 AM BENZENE OPERATOR Tejal Mccabe MD LAB - POINT OF CARE ORDERABLES [facility] [address] [place] [address] * LAB RESULTS ORDER (04/18/2022) 04/18/2022 Narrative 04/18/2022 Ordered by an unspecified provider. Scanned Document LAB - THERAPEUTIC DR UG MONITORING ORDERABLES * XR PELVIS W BILAT HIP 2VW (04/14/2022 12:58 PM BENZENE OPERATOR) Anatomical Region Laterality Modality Pelvis, Lower Extremity Radiogra phic Imaging 04/14/2022 3:04 PM BENZENE OPERATOR Impressions 04/14/2022 3:06 PM BENZENE OPERATOR IMPRESSION: Severe degenerative osteoarthritis left hip as described above. > Interpreting Provider: Kuldip Bedoya MD on 04/14/2022 3:06 PM Narrative 04/14/2022 3:06 PM BENZENE OPERATOR PROCEDURE: XR PELVIS W BILAT HIP 2VW, DATE/TIME OF EXAM: 04/14/2022 1:03 PM, LOCATION [facility] INDICATION: R76.8: Other specified abnormal immunological findings in serum R21: Rash and other nonspecific skin eruption M25.50: Pain in unspecified joint R53.83: Other fatigue ADDITIONAL CLINICAL INFORMATION: Ordering Provider Reason For Exam: Technologist Note: Additional: COMPARISON: Left hip 01/11/2022 TECHNIQUE: AP view the pelvis and oblique views of both hips were performed. FINDINGS: Left hip demonstrates severe degenerative narrowing with subchondral sclerosis at the supra-acetabular region as well as supra-acetabular spurring. The right hip demonstrates some spurring with some very mild narrowing. There is no gross destructive or lytic process. No evidence of acute or healing fracture is seen. Sacroiliac joints appear intact. Procedure Note Kuldip Bedoya MD - 04/14/2022 PROCEDURE: XR PELVIS W BILAT HIP 2VW, DATE/TIME OF EXAM: 31:03 PM, LOCATION [facility] INDICATION: R76.8: Other specified abnormal immunological findings in serum R21: Rash and other nonspecific skin eruption M25.50: Pain in unspecified joint R53.83: Other fatigue ADDITIONAL CLINICAL INFORMATION: Ordering Provider Reason For Exam: Technologist Note: Additional: COMPARISON: Left hip 01/11/2022 TECHNIQUE: AP view the pelvis and oblique views of both hips were performed. FINDINGS: Left hip demonstrates severe degenerative narrowing with subchondral sclerosis at the supra-acetabular region as well as supra-acetabular spurring. The right hip demonstrates some spurring with some very mild narrowing. There is no gross destructive or lytic process. No evidenceof acute or healing fracture is seen. Sacroiliac joints appear intact. IMPRESSION: Severe degenerative osteoarthritis left hip as described above. > Interpreting Provider: Kuldip Bedoya MD on 04/14/2022 3:06 PM Adelina Trinidad DO DIAGNOSTIC IMAGING O RDERABLES * XR KNEE BILAT 2VW OR LESS (04/14/2022 12:52 PM BENZENE OPERATOR) Anatomical Region Laterality Modality Lower Extremity Radiographic Ghazal ging 04/14/2022 3:50 PM BENZENE OPERATOR Impressions 04/14/2022 3:52 PM BENZENE OPERATOR IMPRESSION: 1. No acute fracture or knee joint effusion. 2. Mild osteoarthritic changes of the medial central weightbearing compartments bilaterally. > Interpreting Provider: Joshua Mandujano MD on 04/14/2022 3:52 PM Narrative 04/14/2022 3:52 PM BENZENE OPERATOR PROCEDURE: XR KNEE BILAT 2VW OR LESS, DATE/TIME OF EXAM: 04/14/2022 3:42 PM, LOCATION [facility] INDICATION: R76.8: Other specified abnormal immunological findings in serum R21: Rash and other nonspecific skin eruption M25.50: Pain in unspecified joint R53.83: Other fatigue ADDITIONAL CLINICAL INFORMATION: Ordering Provider Reason For Exam: Technologist Note: Additional: COMPARISON: None. FINDINGS: Right knee: No significant fullness in the suprapatellar space. No lytic or blastic osseous lesions are identified. Probable fabella is seen. Mild joint space narrowing of the medial central weightbearing compartment is noted. There is no acute fracture. Left knee: There is a 0.5 cm calcific density over the posterior aspect of the knee joint. This may be within the medial soft tissues on the AP view. No acute fracture is identified. No lytic or blastic osseous lesions are seen. Mild joint space narrowing within the medial central weightbearing compartment is noted. Procedure Note Joshua Mandujano MD - 04/14/2022 PROCEDURE: XR KNEE BILAT 2VW OR LESS, DATE/TIME OF EXAM: 33:42 PM, LOCATION [facility] INDICATION: R76.8: Other specified abnormal immunological findings in serum R21: Rash and other nonspecific skin eruption M25.50: Pain in unspecified joint R53.83: Other fatigue ADDITIONAL CLINICAL INFORMATION: Ordering Provider Reason For Exam: Technologist Note: Additional: COMPARISON: None. FINDINGS: Right knee: No significant fullness in the suprapatellar space. No lytic or blastic osseous lesions are identified. Probable fabella is seen. Mild jointspace narrowing of the medial central weightbearing compartment is noted.There is no acute fracture. Left knee: There is a 0.5 cm calcific density over the posterior aspect of the knee joint. This may be within the medial soft tissues on the AP view. Noacute fracture is identified. No lytic or blastic osseous lesions are seen.Mild joint space narrowing within the medial central weightbearingcompartment is noted. IMPRESSION: 1. No acute fracture or knee joint effusion. 2. Mild osteoarthritic changes of the medial central weightbearing compartments bilaterally. > Interpreting Provider: Joshua Mandujano MD on 04/14/2022 3:52 PM Adelina Trinidad DO DIAGNOSTIC IMAGING O RDERABLES * MRI BRAIN WWO CONTRAST (03/14/2022 9:42 AM BENZENE OPERATOR) Anatomical Region Laterality Modality Head Magnetic Resonan ce 03/14/2022 9:47 AM BENZENE OPERATOR Impressions 03/14/2022 9:49 AM BENZENE OPERATOR IMPRESSION: Limited by motion Otherwise essentially normal MRI of the brain > Interpreting Provider: Calin Tavarez MD on 03/14/2022 9:49 AM Narrative 03/14/2022 9:49 AM BENZENE OPERATOR PROCEDURE: MRI BRAIN WWO CONTRAST, DATE/TIME OF EXAM: 03/14/2022 9:43 AM, INDICATION: R51.9: Headache, unspecified RELEVANT COMPARISON: No relevant available comparison. Additional history (none relevant if blank): ___ Routine imaging was performed. Contrast:GADOTERATE MEGLUMINE 0.5 MMOL/ML IV SSM SO:20 mL FINDINGS: The exam is compromised by excessive motion artifact. By report the patient had involuntary movements and had trouble holding still for the exam. What is seen of the brain parenchyma appears relatively normal. There is normal johnson and white matter signal intensity. No subacute hemorrhage, discrete mass, or brain edema pattern is seen. The posterior fossa, brainstem, and craniocervical junction appeared to be normal. Diffusion-weighted images shows no evidence of abnormal signal to suggest an acute infarct. There is no abnormal enhancement following gadolinium administration. The paranasal sinuses and mastoids are clear. Procedure Note Calin Tavarez MD - 03/14/2022 PROCEDURE: MRI BRAIN WWO CONTRAST, DATE/TIME OF EXAM: 03/14/2022 9:43 AM, INDICATION: R51.9: Headache, unspecified RELEVANT COMPARISON: No relevant available comparison. Additional history (none relevant if blank): ___ Routine imaging was performed. Contrast:GADOTERATE MEGLUMINE 0.5 MMOL/ML IV SSM SO:20 mL FINDINGS: The exam is compromised by excessive motion artifact. By report thepatient had involuntary movements and had trouble holding still for the exam. What is seen of the brain parenchyma appears relatively normal. There is normal johnson and white matter signal intensity. No subacute hemorrhage, discrete mass, or brain edema pattern is seen.The posterior fossa, brainstem, and craniocervical junction appeared to be normal. Diffusion-weighted images shows no evidence of abnormal signal tosuggest an acute infarct. There is no abnormal enhancement following gadolinium administration. The paranasal sinuses and mastoids are clear. IMPRESSION: Limited by motion Otherwise essentially normal MRI of the brain > Interpreting Provider: Calin Tavarez MD on 03/14/2022 9:49 AM Aria Ch MD MR ORDERABLES * XR PELVIS W LEFT HIP 2VW (01/11/2022 3:55 AM BENZENE OPERATOR) Anatomical Region Laterality Modality Pelvis Radiographic Ghazal ging 01/11/2022 9:23 AM BENZENE OPERATOR Impressions 01/11/2022 9:24 AM BENZENE OPERATOR IMPRESSION: Mild symmetric osteoarthrosis, SI joints. Moderate, asymmetric osteoarthrosis of the LEFT hip. > Interpreting Provider: Salvador Hughes MD on 01/11/2022 9:24 AM Narrative 01/11/2022 9:24 AM BENZENE OPERATOR PROCEDURE: XR PELVIS W LEFT HIP 2VW, DATE/TIME OF EXAM: 01/11/2022 3:56 AM INDICATION: M25.552: Pain in left hip COMPARISON: None. FINDINGS: Pelvis is intact. Mild symmetric osteoarthrosis changes of sacroiliac joints. There is asymmetric, moderate severity osteoarthrosis changes at the LEFT hip. No fracture or dislocation. Procedure Note Salvador Hughes MD - 01/11/2022 PROCEDURE: XR PELVIS W LEFT HIP 2VW, DATE/TIME OF EXAM: 23:56 AM INDICATION: M25.552: Pain in left hip COMPARISON: None. FINDINGS: Pelvis is intact. Mild symmetric osteoarthrosis changes of sacroiliac joints. There is asymmetric, moderate severity osteoarthrosis changes at theLEFT hip. No fracture or dislocation. IMPRESSION: Mild symmetric osteoarthrosis, SI joints. Moderate, asymmetric osteoarthrosis of the LEFT hip. > Interpreting Provider: Salvador Hughes MD on 01/11/2022 9:24 AM Yunior Malone MD DIAGNOSTIC IMAGING ORDERABLES * PATHOLOGY TISSUE EXAM (STL) (12/31/2021 10:37 AM BENZENE OPERATOR) Only the most recent of2 resultswithin the time period is included. Case Report Surgical Pathology Report Case: [id number] Authorizing Provider: Malcom Kline MD Collected: 12/31/2021 10:37 AM Ordering Location: [facility] Received: 12/31/2021 01:10 PM Pathologist: Chad Zarate MD Specimen: Polyp Descending, x1 CS 01/03/2022 2:33 PM BENZENE OPERATOR [facility] Final Diagnosis Colon, descending, endoscopic polypectomy: Hyperplastic polyp 01/03/2022 2:33 PM BENZENE OPERATOR [facility] Clinical History Colonoscopy performed to evaluate left upper quadrant pain in a 51-year-old female demonstrates 6 mm sessile descending colon polyp. 01/03/2022 2:33 PM BENZENE OPERATOR [facility] Gross Description One specimen received in a formalin filled container labeled descending polyp x1 consists of a 16 x 4 x 3 mm jefferson-red polypoid tissue. Polyp is sectioned and is entirely submitted in A1. 01/03/2022 2:33 PM BENZENE OPERATOR [facility] Disclaimer All histochemical and/or immunohistochemical results are interpreted with controls that demonstrate appropriate staining reactions before reporting results. Note on use of immunocytochemistry reagents: This test was developed and its performance characteristic determined by [facility], Department of Laboratory Medicine. It has not been cleared or approved by the U.S. Food and Drug Administration (FDA). The FDA has determined that such clearance or approval is not necessary. The test is used for clinical purpose. It should not be regarded as investigational or for research. This laboratory is certified to perform high complexity testing. The performance characteristics of the IHC/TOLU assays have been validated on formalin-fixed paraffin embedded tissues only. The assays have not been validated on decalcified tissues. Results should be interpreted with caution. 01/03/2022 2:33 PM BENZENE OPERATOR [facility] Performed By [facility] Pathologists, [facility] at [address] [id number]. 01/03/2022 2:33 PM BENZENE OPERATOR -[facility] Embedded Images 01/03/2022 2:33 PM BENZENE OPERATOR [facility] Pathology/Cytology POLYP / Unknown 2021 10:37 AM BENZENE OPERATOR 12/31/2021 1:10 PM BENZENE OPERATOR Comment:Pre-op diagnosis: Abdominal pain, LLQ (left lower quadrant) [R10.32] Constipation, unspecified constipation type [K59.00] Malcom Kline MD LAB - PATHOLOGY/CYTO LOGY ORDERABLES [facility] [address] [place] [address] * ENDOSCOPY, COLON, DIAGNOSTIC (12/31/2021 10:08 AM BENZENE OPERATOR) Report Endoscopy POC _ Patient Name: Dipika Young Procedure Date: 12/31/2021 10:08 AM Date of : 1970 Admit Type: Outpatient Age: 51 Gender: Female Attending MD: Malcom Kline MD _ Procedure: Colonoscopy Indications: Abdominal pain in the left upper quadrant Providers: Malcom Kline MD (Doctor) Referring MD: Raymond Nelson Jr., MD (Referring MD) Medicines: Monitored Anesthesia Care Complications: No immediate complications. _ Estimated Blood Loss: Estimated blood loss: none. Procedure: Pre-Anesthesia Assessment: - Prior to the procedure, a History and Physical was performed, and patient medications and allergies were reviewed. The patient's tolerance of previous anesthesia was also reviewed. The risks and benefits of the procedure and the sedation options and risks were discussed with the patient. All questions were answered, and informed consent was obtained. Prior Anticoagulants: The patient has taken no previous anticoagulant or antiplatelet agents. ASA Grade Assessment: II - A patient with mild systemic disease. After reviewing the risks and benefits, the patient was deemed in satisfactory condition to undergo the procedure. After I obtained informed consent, the scope was passed under direct vision. Throughout the procedure, the patient's blood pressure, pulse, and oxygen saturations were monitored continuously. The was introduced through the anus and advanced to the cecum, identified by appendiceal orifice and ileocecal valve. The colonoscopy was performed without difficulty. The patient tolerated the procedure well. The quality of the bowel preparation was inadequate. Findings: The perianal and digital rectal examinations were normal. A 6 mm polyp was found in the descending colon. The polyp was sessile. The polyp was removed with a cold snare. Resection and retrieval were complete. Verification of patient identification for the specimen was done. Estimated blood loss was minimal. The colon (entire examined portion) appeared normal otherwise but polyps could have been missed due to the quality of the prep. Non-bleeding external hemorrhoids were found during retroflexion. The hemorrhoids were medium-sized. _ Impression: - Preparation of the colon was inadequate. - One 6 mm polyp in the descending colon, removed with a cold snare. Resected and retrieved. - The entire examined colon is normal. - Non-bleeding external hemorrhoids. Recommendation: - Discharge patient to home (with escort). - Patient has a contact number available for emergencies. The signs and symptoms of potential delayed complications were discussed with the patient. Return to normal activities tomorrow. Written discharge instructions were provided to the patient. - Resume previous diet. - Continue present medications. - Await pathology results. - Repeat colonoscopy in 1 year for surveillance. Procedure Code(s): --- Professional --- 02354, Colonoscopy, flexible; with removal of tumor(s), polyp(s), or other lesion(s) by snare technique --- Technical --- 13801, Colonoscopy, flexible; with removal of tumor(s), polyp(s), or other lesion(s) by snare technique Diagnosis Code(s): --- Professional --- K64.4, Residual hemorrhoidal skin tags K63.5, Polyp of colon R10.12, Left upper quadrant pain --- Technical --- K64.4, Residual hemorrhoidal skin tags K63.5, Polyp of colon R10.12, Left upper quadrant pain CPT copyright 2019 [employer]. All rights reserved. The codes documented in this report are preliminary and upon auxiliary plant operator review may be revised to meet current compliance requirements. Dr. Alivia Kline MD Malcom Kline MD 12/31/2021 10:36:33 AM This report has been signed electronically. Number of Addenda: 0 Note Initiated On: 12/31/2021 10:08 AM Procedure Date: 12/31/2021 10:08:52 AM Scope Withdrawal Time: 0 hours 9 minutes 30 seconds [facility] 12/31/2021 10:0 8 AM BENZENE OPERATOR Malcom Kline MD GI PROCEDURE ORDERAB LES [facility] * TREPONEMA PALLIDUM POS REFLX RPR (12/17/2021 12:05 PM CDT) T pallidum Antibody (TP-PA) Non Reactive Non Reactive [facility] INSURANCE BILL Blood BLOOD SPECIMEN / Unknown 12/17/2021 12:05 PM CDT 12/17/2021 Narrative Resulting Agency Comment Lab Testing performed at: [facility] [place] [address] [facility] [id number] Aria Ch MD LAB - SEROLOGY ORDER ASHLEY Performing Organization Address City/[facility]/ZIP Co de Phone Number [facility] INSURANCE BILL [address] [place] [address] * TSH REFLEX FREE T4 (12/17/2021 12:05 PM CDT) Pathologist [facility] TSH 1.050 0.450 - 4.500 uIU/mL [facility] INSURANCE BILL Blood BLOOD SPECIMEN / Unknown 12/17/2021 12:05 PM CDT 12/17/2021 Narrative Resulting Agency Comment Lab Testing performed at: [facility] [address] [facility] [id number] Aria Ch MD LAB - CHEMISTRY ORDE RABLES Performing Organization Address City/[facility] Co de Phone Number [facility] INSURANCE BILL [address] [place] [address] * (ABNORMAL) SHERRIE STAINING PATTERNS REFLEXED (12/17/2021 12:05 PM CDT) Homogeneous Pattern NOT AVAILABLE [facility] INSURANCE BILL Comment:Result cannot be obt ained for this observation. Nucleolar Pattern NOT AVAILABLE [facility] INSURANCE BILL Comment:Result cannot be obt ained for this observation. Speckled Pattern 1:160(H) [facility] INSURANCE BILL Comment:ICAP nomenclature: A C-2,4,5,29 Centromere Pattern NOT AVAILABLE [facility] INSURANCE BILL Comment:Result cannot be obt ained for this observation. Spindle Apparatus Pattern NOT AVAILABLE [facility] INSURANCE BILL Comment:Result cannot be obt ained for this observation. Nuclear Membrane Pattern NOT AVAILABLE [facility] INSURANCE BILL Comment:Result cannot be obt ained for this observation. Midbody Pattern NOT AVAILABLE [facility] INSURANCE BILL Comment:Result cannot be obt ained for this observation. Nuclear Dot Pattern NOT AVAILABLE [facility] INSURANCE BILL Comment:Result cannot be obt ained for this observation. PCNA Pattern NOT AVAILABLE [facility] INSURANCE BILL Comment:Result cannot be obt ained for this observation. Centriole Pattern NOT AVAILABLE [facility] INSURANCE BILL Comment:Result cannot be obt ained for this observation. Note [facility] INSURANCE BILL Comment: For more information about Hep-2 cell patterns use [employer], the official website for the International Consensus on Antinuclear Antibody (KETTY) Patterns (ICAP). A positive KETTY result may occur in healthy individuals (low titer) or be associated with a variety of diseases. See interpretation chart which is not all inclusive: . Pattern Antigen Detected Suggested Disease Association Homogeneous DNA(ds,ss), SLE - High titers Nucleosomes, Histones Drug-induced SLE Speckled Sm, ELECTROENCEPHALOGRAPHIC TECHNICIAN, SCL-70, SLE,MCTD,PSS (diffuse form), SS-A/SS-B Sjogrens Nucleolar SCL-70, PM-1/SCL High titers Scleroderma, PM/DM Centromere Centromere PSS (limited form) w/Crest syndrome variable Nuclear Dot [id number] Primary Biliary Cirrhosis Nuclear GP210, Primary Biliary Cirrhosis Membrane trevor A,B,C 12/17/2021 12:0 5 PM CDT 12/17/2021 Narrative Resulting Agency Comment Lab Testing performed at: [facility] [id number] Aria Ch MD LAB - PATHOLOGY/CYTO LOGY ORDERABLES Performing Organization Address City/[facility]/ZIP Co de Phone Number [facility] INSURANCE BILL [address] [place] [address] * IMMUNOFIXATION BLOOD (12/17/2021 12:05 PM CDT) Immunofixation Result [facility] INSURANCE BILL Comment:No monoclonality det ected. IgG Quantitative 1,052 586 - 1,602 mg/dL [facility] INSURANCE BILL IgA Quantitative 159 87 - 352 mg/dL [facility] INSURANCE BILL IgM Quantitative 53 26 - 217 mg/dL [facility] INSURANCE BILL Blood BLOOD SPECIMEN / Unknown 12/17/2021 12:05 PM CDT 12/17/2021 Narrative Resulting Agency Comment Lab Testing performed at: [id number] [id number] Aria Ch MD LAB - CHEMISTRY ORDE RABNANCY Performing Organization Address [facility]/ZIP Co de Phone Number [facility] INSURANCE BILL [address] [place] [address] * VITAMIN B12 FOLATE PANEL (12/17/2021 12:05 PM CDT) Pathologist [facility] Vitamin B12 888 232 - 1,245 pg/mL [facility] INSURANCE BILL Folate >20.0 >3.0 ng/mL [facility] INSURANCE BILL Comment: A serum folate concentration of less than 3.1 ng/mL is considered to represent clinical deficiency. Blood BLOOD SPECIMEN / Unknown 12/17/2021 12:05 PM CDT 12/17/2021 Narrative Resulting Agency Comment Lab Testing performed at: [facility] [address] [facility] [id number] Aria Ch MD LAB - CHEMISTRY TIKA JORDAN [facility] INSURANCE BILL [address] [place] [address] * (ABNORMAL) PROTEIN ELECTROPHORESIS BLOOD (12/17/2021 12:05 PM CDT) [facility] Protein Total 7.2 6.0 - 8.5 g/dL [facility] INSURANCE BILL Albumin 3.7 2.9 - 4.4 g/dL [facility] INSURANCE BILL Alpha-1 Globulin 0.2 0.0 - 0.4 g/dL [facility] INSURANCE BILL Hsncx-0-Mfgxqhzd 1.1(H) 0.4 - 1.0 g/dL [facility] INSURANCE BILL Beta-Globulin 1.2 0.7 - 1.3 g/dL [facility] INSURANCE BILL Gamma Globulin 1.0 0.4 - 1.8 g/dL [facility] INSURANCE BILL M-Stu Not Observed Not Observed g/dL [facility] INSURANCE BILL Globulin Total 3.5 2.2 - 3.9 g/dL [facility] INSURANCE BILL Albumin/Globulin Ratio 1.1 0.7 - 1.7 [facility] INSURANCE BILL Please Note [facility] INSURANCE BILL Comment: Protein electrophoresis scan will follow via computer, mail, or pipe caulker delivery. P E Interpretation, S [facility] INSURANCE BILL Comment: The SPE pattern demonstrates elevation of regions containing acute phase proteins suggesting an acute/subacute inflammatory response. Some conditions in which this pattern has been observed include: bacterial, viral or parasitic infection; mechanical, physical or chemical trauma; and cardiac failure. The gamma globulin region is unremarkable and evidence of monoclonal protein is not apparent. Blood BLOOD SPECIMEN / Unknown 12/17/2021 12:05 PM CDT 12/17/2021 Narrative Resulting Agency Comment Lab Testing performed at: [facility] [place] [address] [facility] [id number] Aria Ch MD LAB - CHEMISTRY TIKA JORDAN [facility] INSURANCE BILL [address] [place] [address] * CT ABDOMEN PELVIS W CONTRAST (12/15/2021 1:26 PM CDT) Only the most recent of2 resultswithin the time period is included. Anatomical Region Laterality Modality Abdomen, Pelvis Computed Tomogra phy 12/15/2021 1:29 PM CDT Impressions 12/15/2021 1:39 PM CDT IMPRESSION: 1. No acute intra-abdominal inflammatory process. 2. Diverticulosis without CT findings of diverticulitis. 3. No other primary bowel pathology. 4. Normal appendix. 5. Ventral omental hernia > Interpreting Provider: Calin Tavarez MD on 12/15/2021 1:39 PM Narrative 12/15/2021 1:39 PM CDT PROCEDURE: CT ABDOMEN PELVIS W CONTRAST DATE/TIME OF EXAM: 12/15/2021 1:28 PM INDICATION: R10.32: Left lower quadrant pain COMPARISON: July 2019 ADDITIONAL CLINICAL INFORMATION (if provided): Ordered wrong again. Ordering Provider Reason For Exam: CONTRAST: IOPAMIDOL 76 % IV SOLN:80 mL TECHNIQUE: CT ABDOMEN PELVIS W CONTRAST utilizing standard protocol.. CT dose reduction technique was used, including Automated Exposure Control. FINDINGS: The lower lung petersen are clear. The liver spleen gallbladder pancreas adrenals and kidneys enhance normally. The abdominal aorta is normal. There is no kidney stone or hydronephrosis. Imaging through the pelvis shows a normal decompressed urinary bladder. The uterus and adnexa are unremarkable. The bowel was well opacified and appears to be grossly normal including the terminal ileum and appendix. There is moderate sigmoid diverticulosis without acute diverticulitis or other acute intra-abdominal abdominal inflammatory process. There is a small ventral omental hernia in the infraumbilical region. No mass adenopathy inflammatory change or free fluid is seen Procedure Note Calin Tavarez MD - 12/15/2021 PROCEDURE: CT ABDOMEN PELVIS W CONTRAST DATE/TIME OF EXAM: 12/15/2021 1:28 PM INDICATION: R10.32: Left lower quadrant pain COMPARISON: July 2019 ADDITIONAL CLINICAL INFORMATION (if provided): Ordered wrong again. Ordering Provider Reason For Exam: CONTRAST: IOPAMIDOL 76 % IV SOLN:80 mL TECHNIQUE: CT ABDOMEN PELVIS W CONTRAST utilizing standard protocol.. CT dose reduction technique was used, including Automated ExposureControl. FINDINGS: The lower lung petersen are clear. The liver spleen gallbladder pancreas adrenals and kidneys enhance normally. The abdominal aorta is normal. There is no kidney stone or hydronephrosis. Imaging through the pelvis shows a normal decompressed urinary bladder.The uterus and adnexa are unremarkable. The bowel was well opacified and appears to be grossly normal includingthe terminal ileum and appendix. There is moderate sigmoid diverticulosis without acute diverticulitis or other acute intra-abdominal abdominal inflammatory process. There is a small ventral omental hernia in the infraumbilical region. No mass adenopathy inflammatory change or free fluid is seen IMPRESSION: 1. No acute intra-abdominal inflammatory process. 2. Diverticulosis without CT findings of diverticulitis. 3. No other primary bowel pathology. 4. Normal appendix. 5. Ventral omental hernia > Interpreting Provider: Calin Tavarez MD on 12/15/2021 1:39 PM Matilde Poropat SMELTER CHARGER-STEAM FLATTENER CT ORDERABLES * ISTAT CREATININE (12/15/2021 1:14 PM CDT) Sample iSTAT CIRO 01/18/2022 12:24 PM BENZENE OPERATOR [facility] Creatinine POCT 0.8 0.5 - 1.3 mgdL 01/18/2022 12:24 PM BENZENE OPERATOR [facility] Blood BLOOD SPECIMEN / Unknown 12/15/2021 1:14 PM CDT 01/18/2022 12:24 PM BENZENE OPERATOR Raymond Nelson Jr., MD [facility] ORDERABLES [facility] [address] [address] * XR ABDOMEN KUB (12/01/2021 12:56 PM CDT) Anatomical Region Laterality Modality Abdomen Computed Radiogr aphy 12/01/2021 1:01 PM CDT Impressions 12/01/2021 1:01 PM CDT IMPRESSION: No radiographic evidence of acute intra-abdominal process. Moderate constipation. > Interpreting Provider: Farhan Diego MD on 12/01/2021 1:01 PM Narrative 12/01/2021 1:01 PM CDT PROCEDURE: XR ABDOMEN KUB, DATE/TIME OF EXAM: 12/01/2021 12:56 PM, LOCATION [facility] INDICATION: R10.32: Left lower quadrant pain K59.00: Constipation, unspecified ADDITIONAL CLINICAL INFORMATION: Ordering Provider Reason For Exam: Technologist Note: Additional: COMPARISON: CT abdomen pelvis from July 26, 2020 FINDINGS: Single view of the abdomen demonstrates a nonspecific bowel gas pattern with no evidence of obstruction. No mass effect or pathologic calcifications. Advanced degenerative changes of the left hip noted with joint space narrowing, subchondral cirrhosis, and marginal osteophytes. Moderate colonic fecal retention noted. Procedure Note Farhan Diego MD - 12/01/2021 PROCEDURE: XR ABDOMEN KUB, DATE/TIME OF EXAM: 12/01/2021 12:56 PM, LOCATION [facility] INDICATION: R10.32: Left lower quadrant pain K59.00: Constipation, unspecified ADDITIONAL CLINICAL INFORMATION: Ordering Provider Reason For Exam: Technologist Note: Additional: COMPARISON: CT abdomen pelvis from July 26, 2020 FINDINGS: Single view of the abdomen demonstrates a nonspecific bowel gas pattern with no evidence of obstruction. No mass effect or pathologic calcifications. Advanced degenerative changes of the left hip noted with joint space narrowing, subchondral cirrhosis, and marginal osteophytes. Moderate colonic fecal retention noted. IMPRESSION: No radiographic evidence of acute intra-abdominal process. Moderate constipation. > Interpreting Provider: Farhan Diego MD on 12/01/2021 1:01 PM Matilde Barker SMELTER CHARGER-STEAM FLATTENER DIAGNOSTIC IMAG ING ORDERABLES * XR LUMBAR SPINE 2 OR 3VW (11/08/2021 8:04 AM CDT) Anatomical Region Laterality Modality Spine Radiographic Ghazal ging 11/08/2021 8:56 AM CDT Impressions 11/08/2021 8:57 AM CDT IMPRESSION: Degenerative disc disease at L4-5 as described above. > Interpreting Provider: Kuldip Bedoya MD on 11/08/2021 8:57 AM Narrative 11/08/2021 8:57 AM CDT PROCEDURE: XR LUMBAR SPINE 2 OR 3VW, DATE/TIME OF EXAM: 11/08/2021 8:04 AM, LOCATION [facility] INDICATION: M54.41: Lumbago with sciatica, right side ADDITIONAL CLINICAL INFORMATION: Ordering Provider Reason For Exam: Technologist Note: Additional: COMPARISON: None. FINDINGS: AP and lateral views of the lumbar spine were performed. There are 6 lumbarized vertebral segments. The lowest lumbar segment is designated L6. There is moderate disc space narrowing at L 45 with vacuum sign and mild anterior endplate spurring. No evidence of compression fractures seen. Sacroiliac joints appear within normal limits. Procedure Note Kuldip Bedoya MD - 11/08/2021 PROCEDURE: XR LUMBAR SPINE 2 OR 3VW, DATE/TIME OF EXAM: 11/08/2021 8:04 AM, LOCATION [facility] INDICATION: M54.41: Lumbago with sciatica, right side ADDITIONAL CLINICAL INFORMATION: Ordering Provider Reason For Exam: Technologist Note: Additional: COMPARISON: None. FINDINGS: AP and lateral views of the lumbar spine were performed. There are 6 lumbarized vertebral segments. The lowest lumbar segment is designatedL6. There is moderate disc space narrowing at L 45 with vacuum sign and mild anterior endplate spurring. No evidence of compression fractures seen. Sacroiliac joints appear within normal limits. IMPRESSION: Degenerative disc disease at L4-5 as described above. > Interpreting Provider: Kuldip Bedoya MD on 11/08/2021 8:57 AM Carlee Bartholomew MD DIAGNOSTIC IMAGING ORDERABLES * LIPASE BLOOD (07/26/2020 6:55 AM CDT) Pathologist [facility] Lipase 29 8 - 78 U/L 07/26/2020 7:29 AM CDT [facility] Blood BLOOD SPECIMEN / Unknown Venipuncture / Unknown 07/26/2020 6:55 AM CDT 07/26/2020 7:07 AM CDT Librado Guan DO LAB - CHEMISTRY ORDERABLES [facility] AT [address] [address] * BASIC METABOLIC PANEL (CALCIUM TOTAL) (03/17/2017 4:00 AM BENZENE OPERATOR) Only the most recent of8 resultswithin the time period is included. Pathologist [facility] BUN 10 7 - 26 mg/dL [facility] Creatinine 0.7 0.6 - 1.2 mg/dL [facility] Sodium 139 136 - 145 mmol/L [facility] Potassium 3.9 3.5 - 4.5 mmol/L [facility] Chloride 104 98 - 107 mmol/L [facility] CO2 26 22 - 29 mmol/L [facility] Glucose 111 70 - 115 mg/dL [facility] Calcium 9.0 8.4 - 10.2 mg/dL [facility] Comment:Confirmed by repeat analysis. Anion Gap 13 8 - 18 [facility] BUN/Creatinine Ratio 14 7 - 23 [facility] Osmolality Calculated 288 270 - 300 mOsm/kg [facility] eGFR >60 >60 mL/min/1.7 3 m2 [facility] Blood specimen (specimen) BLOOD SPECIMEN / Unknown 03/17/2017 4:00 AM BENZENE OPERATOR 03/17/2017 4:09 AM BENZENE OPERATOR Kenyon Panchal MD LAB - CHEMISTRY TIKA JORDAN [address] [phone] * (ABNORMAL) CBC W/O DIFFERENTIAL (03/17/2017 4:00 AM BENZENE OPERATOR) Only the most recent of7 resultswithin the time period is included. WBC 4.1 3.5 - 10.5 10 3/uL [facility] RBC 3.66(L) 3.90 - 5.00 10 6/uL [facility] Hemoglobin 11.1(L) 12.0 - 15.5 g/dL [facility] Hematocrit 34.1(L) 35.0 - 45.0 % [facility] MCV 93.2 81.0 - 97.0 fL [facility] MCH 30.3 28.0 - 34.0 pg [facility] MCHC 32.6 32.0 - 36.0 g/dL [facility] Platelet Count 202 150 - 400 10 3/uL [facility] RDW-SD 43.5 36.0 - 50.0 fL [facility] RDW-CV 13.0 11.2 - 14.8 % [facility] MPV 10.2 9.3 - 12.8 fL [facility] Blood specimen (specimen) BLOOD SPECIMEN / Unknown 03/17/2017 4:00 AM BENZENE OPERATOR 03/17/2017 4:09 AM BENZENE OPERATOR Kenyon Panchal MD LAB - HEMATOLOGY ORD ERABLES [facility] [address] [phone] * (ABNORMAL) GLUCOSE ACCUCHECK (03/16/2017 8:12 PM BENZENE OPERATOR) Only the most recent of36 resultswithin the time period is included. Pathologist [facility] Glucose, Fingerstick 129(H) 70-115mg/d L mg/dL [facility] ([facility]) Comment:Instructional Technologist: CORY BENITO 03/16/2017 8:12 PM BENZENE OPERATOR Kenyon Panchal MD LAB - CHEMISTRY ORDGene JORDAN [facility] ([facility]) * VANCOMYCIN LEVEL TROUGH (03/16/2017 2:28 PM BENZENE OPERATOR) Only the most recent of4 resultswithin the time period is included. Vancomycin Trough 14.7 10.0 - 20.0 mcg/mL [facility] Blood specimen (specimen) BLOOD SPECIMEN / Unknown 03/16/2017 2:28 PM BENZENE OPERATOR 03/16/2017 2:37 PM BENZENE OPERATOR Kenyon Panchal MD LAB - CHEMISTRY ORDE JULIAN Performing Organization Address City/[facility]/ZIP Co de Phone Number [address] [phone] * TYPE + SCREEN PANEL (03/15/2017 7:14 AM BENZENE OPERATOR) Only the most recent of3 resultswithin the time period is included. Typem O POS [facility] Antibody Screen NEG [facility] Blood specimen (specimen) 03/15/2017 7:14 AM BENZENE OPERATOR 03/15/2017 7:32 AM BENZENE OPERATOR Kenyon Panchal MD LAB - BLOOD BANK ORD ERABLES Performing Organization Address [facility] Co de Phone Number [facility] [address] [place] [address] * ALBUMIN BLOOD (03/15/2017 3:07 AM BENZENE OPERATOR) Albumin 3.6 3.4 - 5.0 g/dL [facility] Blood specimen (specimen) BLOOD SPECIMEN / Unknown 03/15/2017 3:07 AM BENZENE OPERATOR 03/15/2017 3:12 AM BENZENE OPERATOR Kenyon Panchal MD LAB - CHEMISTRY ORDE JULIAN Performing Organization Address [facility]/ZIP Co de Phone Number [address] [phone] * CULTURE FUNGUS OTHER+FUNGUS SMEAR (03/13/2017 8:16 AM BENZENE OPERATOR) Only the most recent of5 resultswithin the time period is included. Culture Fungus-Other No Growth Fungi. [facility] Fungus Smear No Fungi seen. [facility] Fluid specimen (specimen) (Unspecified) 03/13/2017 8:16 AM BENZENE OPERATOR 03/13/2017 1:59 PM BENZENE OPERATOR Narrative [facility] - 04/10/2017 10:58 AM BENZENE OPERATOR Post irrigation of right forearm. Specimen Type->Body Fluid Resulting Lab: [facility] MICROBIOLOGY [address] [place] [address] PH: [phone] Resulting Lab: [facility]CRO[facility] [address] [place] [address] PH: [phone] Resulting Lab: [facility] [address] [place] [address] PH: [phone] Resulting Lab: [facility] [address] [place] [address] PH: [phone] Resulting Lab: [facility]CRO[facility] [address] [place] [address] PH: [phone] Resulting Lab: [facility]CRO[facility] [address] [place] [address] PH: [phone] Kenyon Panchal MD LAB - MICROBIOLOGY O RDERABLES [address] [phone] * CULTURE AEROBIC (03/13/2017 8:16 AM BENZENE OPERATOR) Only the most recent of9 resultswithin the time period is included. Culture Aerobic No Growth [facility] Gram Stain light White Blood Cells [facility] Gram Stain No Organism Seen [facility] Fluid specimen (specimen) 03/13/2017 8:16 AM BENZENE OPERATOR 03/13/2017 9:13 AM BENZENE OPERATOR Narrative [facility] - 03/17/2017 8:17 AM BENZENE OPERATOR Post irrigation of right forearm. Specimen Type->Body Fluid Resulting Lab: [facility]CRO[facility] [address] [place] [address] PH: [phone] Resulting Lab: [facility]CRO[facility] [address] [place] [address] PH: [phone] Kenyon Panchal MD LAB - MICROBIOLOGY O RDSEABLES Performing Organization Address City/[facility]/ZIP Co de Phone Number [facility] [address] [place] [address], [facility] [phone] * CULTURE AFB+SMEAR (03/13/2017 8:16 AM BENZENE OPERATOR) Only the most recent of5 resultswithin the time period is included. Culture Acid Fast Bacilli No growth of Acid Fast bacilli [facility] AFB Smear No acid fast bacilli seen [facility] Fluid specimen (specimen) 03/13/2017 8:16 AM BENZENE OPERATOR 03/13/2017 9:13 AM BENZENE OPERATOR Narrative [facility] - 04/24/2017 8:47 AM BENZENE OPERATOR Post irrigation of right forearm. Specimen Type->Body Fluid Resulting Lab: [facility] MICROBIOLOGY [address] [place] [address] PH: [phone] Resulting Lab: [facility] MICRO[facility]OLOGY [address] [place] [address] PH: [phone] Resulting Lab: [facility] MICRO[facility]OLOG[facility] [address] [place] [address] PH: [phone] Resulting Lab: [facility] MICRO[facility]OLOG[facility] [address] [place] [address] PH: [phone] Resulting Lab: [facility] MICROBIOLOGY [address] [place] [address] PH: [phone] Resulting Lab: [facility] MICROBIOLOGY [address] [place] [address] PH: [phone] Kenyon Panchal MD LAB - MICROBIOLOGY O RDERARANGEL [facility] [address] [place] [address], [facility] [phone] * CULTURE ANAEROBE (03/13/2017 8:16 AM BENZENE OPERATOR) Only the most recent of7 resultswithin the time period is included. Culture Anaerobic No Growth Anaerobes. [facility] Fluid specimen (specimen) 03/13/2017 8:16 AM BENZENE OPERATOR 03/13/2017 9:13 AM BENZENE OPERATOR Narrative [facility] - 03/20/2017 12:25 PM BENZENE OPERATOR Post irrigation of right forearm. Specimen Type->Body Fluid Resulting Lab: [facility] MICROBIOLOGY [address] [place] [address] PH: [phone] Kenyon Panchal MD LAB - MICROBIOLOGY O LAWANDA Performing Organization Address City/[facility]/[place] [address], [facility] [phone] * CULTURE BLOOD (03/13/2017 3:06 AM BENZENE OPERATOR) Only the most recent of2 resultswithin the time period is included. Culture Blood No Growth at 5 days [facility] Blood specimen (specimen) (Venous, Peripheral) 03/13/2017 3:06 AM BENZENE OPERATOR 03/13/2017 3:15 AM BENZENE OPERATOR [facility] - 03/18/2017 7:30 AM BENZENE OPERATOR Resulting Lab: [facility] MICROBIOLOGY [address] [place] [address] PH: [phone] Kenyon Panchal MD LAB - MICROBIOLOGY O LAWANDA Performing Organization Address [facility] [place] [address], [facility] [phone] * (ABNORMAL) CULTURE TISSUE+GRAM STAIN (03/10/2017 12:49 PM BENZENE OPERATOR) Culture Tissue STAPHYLOCOCCUS EPIDERMIDIS(A) [facility] Comment:Light Growth Staphyl ococcus Epidermidis Gram Stain Moderate Red Blood Cells [facility] Gram Stain Rare White Blood Cells [facility] Gram Stain No Organism Seen [facility] Tissue TISSUE SPECIMEN / Unknown 03/10/2017 12:49 PM BENZENE OPERATOR 03/10/2017 2:57 PM BENZENE OPERATOR [facility] - 03/13/2017 12:19 PM BENZENE OPERATOR Specimen Type->Tissue Resulting Lab: [facility] MICROBIOLOGY [address] [place] [address] PH: [phone] Organism Antibiotic Method Susceptibility Staphylococcus epidermidis Clindamycin SUSCEPTIBILITY >=4: Resistant Staphylococcus epidermidis Erythromycin SUSCEPTIBILITY >=8: Resistant Staphylococcus epidermidis Gentamicin SUSCEPTIBILITY <=0.5: Sensitive Staphylococcus epidermidis Levofloxacin SUSCEPTIBILITY <=0.12: Sensitive Staphylococcus epidermidis Oxacillin SUSCEPTIBILITY >=4: Resistant Staphylococcus epidermidis Trimethoprim- sulfamethox azole SUSCEPTIBILITY 160: Resistant Staphylococcus epidermidis Vancomycin SUSCEPTIBILITY 1: Sensitive Kenyon Panchal MD LAB - MICROBIOLOGY O RDERABLES Performing Organization Address City/[facility]/ZIP Co de Phone Number [address] [phone] * HCG URINE QUALITATIVE (03/10/2017 4:04 AM BENZENE OPERATOR) Test Urine Negative Negative [facility] Urine specimen (specimen) 03/10/2017 4:04 AM BENZENE OPERATOR 03/10/2017 4:21 AM BENZENE OPERATOR Kenyon Panchal MD LAB - URINALYSIS ORD ERABLES Performing Organization Address [facility] de Phone Number [address] [phone] * HEMOGLOBIN A1C (03/09/2017 6:08 PM BENZENE OPERATOR) Hemoglobin A1c 5.9 4.4 - 6.3 % [facility] Estimated Average Glucose 123 mg/dL [facility] Comment: HbA1c Interpretation: Treatment target values recommended by ADA and other clinical organizations should be used to evaluate metabolic control in patients. Treatment Target Values: Normal : < 5.7% Pre-diabetes: 5.7-6.4% Diabetes: Equal to or greater than 6.5% Reference: [place] [employer] Standards of Care in Diabetes -2014 In patients 70 years and older consider HbA1c target range of 7.0-7.5% Reference: Diabetes Mellitus in Older People: Position Statement on behalf of the International Association of Gerontology and Geriatrics (IAGG), the Diabetes Working Republican for Older People (EDWPOP), and the International Task Force of Experts in Diabetes. Kofi Marie et al. J [place] [employer]. 2012 Test results diagnostic of diabetes should be repeated for confirmation. The Tosoh G8 assay for the measurement of HbA1c is a National Glycohemoglobin Standardization Program (NGSP)certified method. Results for patients with HbE disease should be interpreted with caution as this hemoglobinopathy has been shown to interfere with the Tosoh G8 assay. Blood specimen (specimen) BLOOD SPECIMEN / Unknown 03/09/2017 6:08 PM BENZENE OPERATOR 03/09/2017 6:26 PM BENZENE OPERATOR Kenyon Panchal MD LAB - CHEMISTRY TIKA JORDAN Performing Organization Address City/[facility]/ZIP Co de Phone Number [address] [phone] * HCG BETA BLOOD QUANTITATIVE (02/17/2017 4:10 AM BENZENE OPERATOR) Beta-hCG Total Quantitative <2 <5 mIU/mL [facility] Comment: HCG Numeric Result Interpretation: Non- Females: < 5 mIU/mL Post-Menopausal Females: < 7 mIU/mL Blood specimen (specimen) BLOOD SPECIMEN / Unknown 02/17/2017 4:10 AM BENZENE OPERATOR 02/17/2017 4:25 AM BENZENE OPERATOR Kenyon Panchal MD LAB - CHEMISTRY TIKA JORDAN Performing Organization Address [facility] Co de Phone Number [address] [phone] * (ABNORMAL) DIFFERENTIAL MANUAL (02/16/2017 6:55 PM BENZENE OPERATOR) WBC (corrected for NRBC) 12.6 10 3/uL [facility] Total Cell Count 100 [facility] Neutrophils Absolute Manual 10.96(H) 1.60 - 7.00 10 3/uL [facility] Comment:(BANDS+SEGS) x WBC = NEUT # (ANC) Lymphocyte Absolute Manual 1.13 0.80 - 2.90 10 3/uL [facility] Monocytes Absolute Manual 0.50 0.14 - 0.66 10 3/uL [facility] Band % Manual 4 0 - 10 % [facility] Neutrophil % Manual 83(H) 30 - 60 % [facility] Lymphocyte % Manual 9(L) 20 - 45 % [facility] Monocytes % Manual 4 2 - 10 % [facility] Platelet Estimate Adequate Adequate [facility] Anisocytosis Few(A) None [facility] Poikilocytes Few(A) None [facility] Blood specimen (specimen) BLOOD SPECIMEN / Unknown 02/16/2017 6:55 PM BENZENE OPERATOR 02/16/2017 6:56 PM BENZENE OPERATOR eKnyon Panchal MD LAB - HEMATOLOGY ORD ERABLES Performing Organization Address City/[facility]/ZIP Co de Phone Number [facility] [address] [phone] * CARDIAC RHYTHM STRIP ORDER (02/09/2017 1:34 AM BENZENE OPERATOR) Narrative 02/09/2017 1:34 AM BENZENE OPERATOR Ordered by an unspecified provider. Scanned Document CARDIAC SERVICES ORD ERABLES * HCG URINE QUALITATIVE - POCT (IP) BEAKER (02/06/2017 7:42 AM BENZENE OPERATOR) HCG Qual Urine Negative Negative [facility] POCT TESTING QC Verified Yes Yes [facility] POC T TESTING Urine URINE / Unknown 02/06/2017 7 :42 AM BENZENE OPERATOR Ninoska Woodall MD LAB - POINT OF CARE ORDERABLES Performing Organization Address City/[facility] Co de Phone Number [facility] POCT TESTING [address] [phone] * GROSS + MICRO EXAM (08/31/1994 3:26 PM CDT) Result CASE NUMBER [id number] Comment: ORDERING PHYSICIAN ARA KEBEDE SPECIMEN TYPE Placenta-/cord Preop Dx Delivery of live male by repeat C-Sect. Hx of recurrent drug / alcohol addiction, + illicit drug use in - marijuana Postop Dx Same Clinical Findings See above GROSS DESCRIPTION In a container without fixative labeled with the patient's name is a term placenta 700 grams about 16 x 15 x 3 cm. Cord is about 30 x 1.5 cm diameter. It contains three vessels. Membranes are gomes- jefferson translucent with no abnormalities. surface is red-brown to gomes-jefferson with normal vasculature. Maternal surface is red-brown lobulated. There are no focal abnormalities on cut section. Samples are submitted. ([facility])clw BLOCKS A - Umbilical cord / membranes B - Placenta Grossed by Yunior Gomez M.D. MICROSCOPIC EXAMINATION Sections show term placenta with unremarkable membranes and three vesseled umbilical cord. Non-diagnostic dystrophic calcifications are focal in the cotyledons. (jal)clw DIAGNOSIS Term placenta - No pathological diagnosis Read by Chad Zarate M.D. Released By CHAD ZARATE MISCELLANEOUS SAMPLES / Unknown 08/31/1994 3:26 PM CDT 08/31/1994 3:26 PM CDT Historical Provider MD LAB - PATHOLOGY/C YTOLOGY ORDERABLES Care Teams Bulb Grader Relationship Specialty [place] [address] [place] [address] PCP - General Family Medicine 02/09/22 Meme Samuel, RN Registered Nurse 02/06/17 Adelina Trinidad DO [address] [facility] [address] [place] [phone] Rheumatology 07/07/22
--- OUTSIDE RECORDS SUMMARY | 2024-04-02 11:53 | XMS_ITS | Referral Summary ---
Author Organization [facility] Address [address] [place] [address] Care Team Providers Care Criminal Researcher Name Role Phone Meme Samuel RN Unavailable Unavailable Omar Delarosa MD, Raymond [place] Primary Care Prov ider Adelina Trinidad DO Unavailable Source Comments [facility],non-owned Affiliates and Associated Physician Practices is amultiple site organization consisting of ambulatory clinics and hospital sitesin [place], [place], [place] and [place]. This disclosure is being madepursuant to the Care Everywhere program and may not contain all information available regarding this patient. Last updated 17.[facility] Encounters Date Type Department Care Team Description 02/15/2024 Refill [facility] [address] [place] [address] Kirsten Hadley APRN-CNP Refill Request from Last 3 Months Allergies Active Allergy Reactions Criticality Noted Date Comments Trazodone Anaphylaxis High 01/15/1969 Medications * Be aware that medications may not be up to date on this document. Alwaysverify current medications with the patient. Medication Sig Dispensed Refills Start Date End Date Status aspirin EC (Ecotrin) 81 MG tablet 12/19/2016 Active hydrOXYzine pamoate (VISTARIL) 25 MG capsule 12/19/2016 Active metFORMIN (GLUCOPHAGE) 1000 MG tablet 12/19/2016 Active propranolol (INDERAL) 60 MG tablet 12/20/2016 Active simvastatin (ZOCOR) 40 MG tablet 12/19/2016 Active vitamin E (E-400) 400 UNIT capsule Take 1 (one) capsule by mouth DAILY 03/02/2017 Active albuterol HFA (VENTOLIN HFA) 108 (90 BASE) MCG/ACT inhaler Inhale 2 (two) puffs by mouth q4h PRN (Shortness of Breath) 11/21/2016 Active cyclobenzaprine (FLEXERIL) 10 MG tablet Take 1 (one) tablet by mouth 3 times daily Active pregabalin (LYRICA) 50 MG capsule Take 1 (one) capsule by mouth 2 times daily Active naloxone HCl (Narcan) 4 MG/0.1ML nasal spray [place] 1 (one) spray into the nose as needed (May repeat every 2 min in alternating nostrils until emergency medical help arrives for overdose) 2 Each 12/20/2021 Active Additional Information Patient not taking.Reported on 11/24/2022 ketorolac (Toradol) 10 MG tablet Take 1 (one) tablet by mouth every 6 hours as needed for Pain 20 tablet 2 02/25/2022 Active Additional Information Patient not taking.Reported on 09/06/2022 tiZANidine (Zanaflex) 4 MG tablet Take 1 (one) tablet by mouth as needed 03/11/2022 Active topiramate (Topamax) 100 MG tablet Take 1 (one) tablet by mouth at bedtime Active losartan-hydroCHLOR Othiazide (Hyzaar) 100-25 MG tablet Take 1 (one) tablet by mouth once daily Active deutetrabenazine (Austedo) 9 MG tabletIndications:T ardive akathisia Take 1 (one) tablet by mouth once daily 30 tablet 3 05/31/2022 Active Additional Information Patient not taking.Reported on 09/06/2022 omeprazole (PriLOSEC) 20 MG capsule 09/18/2021 Active liraglutide (Victoza) 18 MG/3ML pen Inject 1.2 mg subcutaneously 2 times daily 1.8 mg and 1.2mg daily Active triamcinolone acetonide (Kenalog) 0.1 % ointmentIndications :Rash,Positive KETTY (antinuclear antibody),Pain of both shoulder joints,Fatigue, unspecified type Apply to affected area 2 times daily 60 g 3 07/07/[address] (Depakote) 500 MG tabletIndications:B ipolar 1 disorder (HCC) TAKE 1 TABLET BY MOUTH IN THE MORNING AND 2 TABLETS NIGHTLY AT BEDTIME 90 tablet 3 07/22/2022 Active DULoxetine (Cymbalta) 60 MG capsuleIndications: Bipolar 1 disorder (HCC) TAKE 1 CAPSULE BY MOUTH EVERY DAY 30 capsule 08/03/2022 Active Additional Information Patient taking differently: 90 mg Oral DAILY, Reported on 08/25/2022 HYDROcodone-acetami nophen ([place]) 10-325 MG tabletIndications:C hronic pain disorder Take 1 (one) tablet by mouth every 6 hours as needed for Pain 12 tablet 08/22/2022 Active Ingrezza 40 MG capsule Take one capsule by mouth daily 30 capsule 10 11/10/2022 Active vitamin D (D-Vi-Eladia) 10 MCG (400 UNITS)/ML solution Active hydroxychloroquine (Plaquenil) 200 MG tabletIndications:U ndifferentiated connective tissue disease (HCC),High risk medication use,Osteoarthritis of multiple joints, unspecified osteoarthritis type,Fibromyalgia Take 1 (one) tablet by mouth 2 times daily 60 tablet 3 11/24/2022 Active diclofenac sodium (Voltaren) 1 % gel Apply 4 (four) g to affected area 4 times daily 100 g 5 12/14/2022 Active DULoxetine (Cymbalta) 20 MG capsule Take 1 (one) capsule by mouth once daily 03/10/2023 Active meloxicam (Mobic) 7.5 MG tablet Take 1 (one) tablet by mouth once daily 03/22/2023 Active ondansetron (Zofran) 4 MG tablet TAKE 1 TABLET BY MOUTH EVERY 4 HOURS FOR 3 DOSES. TAKE 1ST DOSE 1-2 HOURS BEFORE RADIATION 03/21/2023 Active pregabalin (Lyrica) 100 MG capsule Take 1 (one) capsule by mouth once daily 03/10/2023 Active topiramate (Topamax) 200 MG tablet TAKE 1 TABLET BY ORAL ROUTE AT DINNER TIME OR BEDTIME 01/27/2023 Active HYDROcodone-acetami nophen ([place]) 5-325 MG tablet Take 1 (one) tablet by mouth every 12 hours as needed FOR PAIN 03/22/2023 Active losartan-hydroCHLOR Othiazide (Hyzaar) 100-12.5 MG tablet Take 1 (one) tablet by mouth once daily 03/08/2023 Active propranolol (Inderal) 20 MG tablet Take 1 (one) tablet by mouth once daily 03/09/2023 Active Active Problems Problem Noted Date Diagnosed [...] 01/05/2017 Anxiety disorder 01/05/2017 Meralgia paresthetica 01/05/2017 Overview (05/22/2017): Overview: bilateral Carpal tunnel syndrome of right wrist 01/05/2017 [...] Sex Assigned at Female 01/11/2022 4:28 AM SITE WORKER Gender Identity Female 01/11/2022 4:28 AM SITE WORKER Sexual Orientation Straight 01/11/2022 4: 28 AM SITE WORKER Last Filed Vital Signs Vital Sign Reading [...] Mass Index 35.45 09/06/2022 9:09 AM CDT Functional Status Functional Status Response Date of Assess ment Is person deaf or have serious hearing difficult y? No 04/18/2022 Is person blind or have serious difficulty seein g? No 04/18/2022 Does person have serious dif ficulty walking/climbing stairs? No 04/18/2022 Does person have difficulty dressing/bathing? No 04/18/2022 Does person have difficulty doing errands alone? No 04/18/2022 Cognitive Status Response Date of Assessm ent Does person have difficulty concentrating/remembering/making decisions? No 04/18/2022 Plan of Treatment Not on file Procedures Procedure Name Priority Date/Time Associated Diagnosis Comments COMPREHENSIVE METABOLIC PANEL Routine 11/14/2022 4:59 PM CDT Diffuse disease of connective tissue (HCC) HEPATITIS SCREEN ACUTE ([facility]) Routine 07/06/2022 11:34 AM CDT Positive KETTY (antinuclear antibody) Rash Polyarthralgia Fatigue, unspecified type ENDOSCOPY, COLON, DIAGNOSTIC Routine 12/31/2021 10:08 AM SITE WORKER Abdominal pain, LLQ (left lower quadrant) Constipation, unspecified constipation type HEMOGLOBIN A1C Routine 03/09/2017 6:08 PM SITE WORKER from Last 3 Months or Most Recently Relevant to Health Maintenance Results * (ABNORMAL) COMPREHENSIVE METABOLIC PANEL (11/14/2022 4:59 PM CDT) [facility] Glucose 82 70 - 105 mg/dL 11/14/2022 [...] - 1.2 mg/dL 11/14/2022 5:30 PM CDT [facility] eGFR by CKD-EPI 84(L) >=90 mL/min/1.7 3 m2 11/14/2022 5:30 PM CDT [facility] Blood BLOOD SPECIMEN / Unknown Lab Venipuncture / Unknown 11/14/2022 4:59 PM CDT 11/14/2022 5:08 PM CDT Adelina Vivi DO LAB - CHEMISTRY ORDE JULIAN [facility] [address] [place], [place] [id number] * HEPATITIS SCREEN ACUTE ([facility]) (07/06/2022 11:34 [...] Resulting Agency Comment [facility]: [facility] [address] [phone] Adelina Trinidad DO LAB - CHEMISTRY [email or web address] UJLIAN Performing Organization Address City/[facility]/ZIP Co de Phone Number [facility] INSURANCE BILL [address] [place] [address] * ENDOSCOPY, COLON, DIAGNOSTIC (12/31/2021 10:08 AM SITE WORKER) Report Endoscopy POC _ Patient Name: Dipikarahel Becker Procedure Date: 12/31/2021 10:08 AM Date of [...] for surveillance. Procedure Code(s): --- Professional --- 60716, Colonoscopy, flexible; with removal of tumor(s), polyp(s), or other lesion(s) by snare technique --- Technical --- 42826, Colonoscopy, flexible; with removal of tumor(s), polyp(s), or other lesion(s) by snare technique Diagnosis Code(s): --- Professional --- K64.4, Residual hemorrhoidal skin tags K63.5, Polyp of colon R10.12, Left upper quadrant pain --- Technical --- K64.4, Residual hemorrhoidal skin tags K63.5, Polyp of colon R10.12, Left upper quadrant pain CPT copyright 2019 [place] [employer]. All rights reserved. The codes documented in this report are preliminary and upon deburrer machine review may be revised to meet current compliance requirements. Dr. Alivia Kline MD Malcom Kline MD 12/31/2021 10:36:33 AM This report has been signed electronically. Number of Addenda: 0 Note Initiated On: 12/31/2021 10:08 AM Procedure Date: 12/31/2021 10:08:52 AM Scope Withdrawal Time: 0 hours 9 minutes 30 seconds [facility] ENDOSCOPY 12/31/2021 10:0 8 AM SITE WORKER Malcom Kline MD GI PROCEDURE ORDERAB LES Performing Organization Address City/State/[facility] Co de Phone Number [facility] * HEMOGLOBIN A1C (03/09/2017 6:08 PM SITE WORKER) Hemoglobin A1c 5.9 4.4 - 6.3 % [facility] Estimated Average Glucose 123 mg/dL [facility] Comment: HbA1c Interpretation: Treatment target values recommended by ADA and other clinical organizations should be used to evaluate metabolic control in patients. Treatment Target Values: Normal : < 5.7% Pre-diabetes: 5.7-6.4% Diabetes: Equal to or greater than 6.5% Reference: [place] [employer] Standards of Care in Diabetes -2014 In patients 70 years and older consider HbA1c target range of 7.0-7.5% Reference: Diabetes Mellitus in Older People: Position Statement on behalf of the International Association of Gerontology and Geriatrics (IAGG), the Diabetes Working Green Party for Older People (EDWPOP), and the International Task Force of Experts in Diabetes. Kofi Marie, et al. J [place] [employer]. 2012 Test results diagnostic [...] BLOOD SPECIMEN / Unknown 03/09/2017 6:08 PM SITE WORKER 03/09/2017 6:26 PM SITE WORKER Kenyon Panchal MD LAB - CHEMISTRY TIKA JORDAN [facility] [address] [phone] from Last 3 Months or Most Recently Relevant to Health Maintenance Care Teams Criminal Researcher Relationship Specialty [place] [address] [place] [phone] PCP - General Family Medicine 02/09/22 Meme Samuel, RN Registered Nurse 02/06/17 Adelina Trinidad DO [address] [facility] [address] [place] [address] Rheumatology 07/07/22
--- OUTSIDE RECORDS SUMMARY | 2024-04-02 11:53 | XMS_ITS | Clinical Summary ---
Author Organization [facility] Address [address] [place] [address] Care Team Providers Care Wharf Tender Head Name Role Phone Meme Samuel RN Unavailable Unavailable Omar Delarosa MD, [facility] Primary Care Prov ider Adelina Trinidad DO Unavailable Source Comments [facility],non-owned Affiliates and Associated Physician Practices is amultiple site organization consisting of ambulatory clinics and hospital sitesin [place], [place], [place] and [place]. This disclosure is being madepursuant to the Care Everywhere program and may not contain all information available regarding this patient. Last updated 17.[facility] Allergies Active Allergy Reactions Criticality Noted Date [...] naloxone HCl (Narcan) 4 MG/0.1ML nasal spray [place] 1 (one) spray into the nose as [...] Oral DAILY, Reported on 08/25/2022 HYDROcodone-acetami nophen ([place]) 10-325 MG tabletIndications:C hronic pain disorder Take [...] TIME OR BEDTIME 01/27/2023 Active HYDROcodone-acetami nophen ([place]) 5-325 MG tablet Take 1 (one) tablet [...] Diagnosed Date Resolved Date Rash 04/14/2022 12/22/2022 Encounters Date Type Department Care Team Description 02/15/2024 Refill [facility] Neurosciences [address] [facility] [address] [place] [address] Kirsten Hadley APRN-SUSAN Refill Request from Last 3 Months Family History Medical History Relation Name Comments Cancer - Other Father Cancer - Colon Mother Diabetes - Type 2 Mother Hyperlipidemia Mother Hypertension Mother Peptic Ulcer Disease Mother Relation Name Status Comments Father Mother Social History Tobacco Use Types Packs/Day Years [...] Sex Assigned at Female 01/11/2022 4:28 AM MANAGER PROJECT Gender Identity Female 01/11/2022 4:28 AM MANAGER PROJECT Sexual Orientation Straight 01/11/2022 4: 28 AM MANAGER PROJECT Last Filed Vital Signs Vital Sign Reading [...] Mass Index 35.45 09/06/2022 9:09 AM CDT Plan of Treatment Health Maintenance Due Date Last Done Comments COLOGUARD (AGES 45-75) - COLON CA SCREENING 1970 CT COLONOGRAPHY - COLON CA SCREENING 1970 FIT - COLON CA SCREENING 1970 FLEX SIG - COLON CA SCREENING 1970 MAMMOGRAM 1970 PAP SMEAR 1970 HIV SCREENING 01/15/1983 DTAP/TDAP/TD VACCINES (1 - Tdap) 01/15/1987 HEPATITIS B VACCINE (1 of 3 - 19+ 3-dose series) 01/15/1987 PNEUMOCOCCAL VACCINE 50+ (1 of 2 - PCV) 01/15/1987 ZOSTER VACCINE (1 of 2) 01/15/2018 DIABETES RETINOPATHY SCREENING 01/01/2020 DIABETES-FOOT EXAM WITH MONOFILAMENT 01/01/2020 DIABETES-HGB A1C 01/01/2020 03/09/2017 COLON MONITORING 01/04/2023 01/04/2022, 12/2021, 12/31/2021 Colorectal Cancer Screening 01/04/2023 COVID-19 VACCINE ( - season) 2023 INFLUENZA VACCINE (#1) 2023 DIABETES-SERUM CREATININE 11/15/20232022, 07/06/2022, 12/17/2021, Additional history exists DEPRESSION SCREENING 02/21/2024 DIABETES - URINE PROTEIN SCREENING 02/21/2024 COLONOSCOPY - COLON CA SCREENING 01/05/2032 01/04/2022, 12/31/2021, 12/31/2021 HEPATITIS C SCREENING Completed 07/06/2022 HIB VACCINE Aged Out No longer eligi ble based on patient's age to complete this topic HPV VACCINE Aged Out No longer eligi ble based on patient's age to complete this topic MENINGOCOCCAL (Group B) VACCINE Aged Out No longer eligible based on patient's age to complete this topic MENINGOCOCCAL VACCINE Aged Out No carmela elsie eligible based on patient's age to complete this topic Procedures Procedure Name Priority Date/Time Associated Diagnosis Comments COMPREHENSIVE METABOLIC PANEL Routine 11/14/2022 4:59 PM CDT Diffuse disease of connective tissue (HCC) HEPATITIS SCREEN ACUTE ([facility]) Routine 07/06/2022 11:34 AM CDT Positive KETTY (antinuclear antibody) Rash Polyarthralgia Fatigue, unspecified type ENDOSCOPY, COLON, DIAGNOSTIC Routine 12/31/2021 10:08 AM MANAGER PROJECT Abdominal pain, LLQ (left lower quadrant) Constipation, unspecified constipation type HEMOGLOBIN A1C Routine 03/09/2017 6:08 PM MANAGER PROJECT from Last 3 Months or Most Recently Relevant to Health Maintenance Results * (ABNORMAL) COMPREHENSIVE METABOLIC PANEL (11/14/2022 4:59 PM CDT) Glucose 82 70 - 105 mg/dL 11/14/2022 [...] Trinidad DO LAB - CHEMISTRY TIKA JORDAN [facility] Organization Address City/State/ZIP Co de Phone Number [facility] [address] [place] [address] * HEPATITIS SCREEN ACUTE ([facility]) (07/06/2022 11:34 [...] Resulting Agency Comment Lab Testing performed at: [facility] [address] [facility] [phone] Adelina Trinidad DO LAB - CHEMISTRY TIKA JORDAN [facility] INSURANCE BILL [address] [facility] [place] [address] * ENDOSCOPY, COLON, DIAGNOSTIC (12/31/2021 10:08 AM MANAGER PROJECT) Report Endoscopy POC _ Patient Name: Dipika Becker Procedure Date: 12/31/2021 10:08 AM Date [...] for surveillance. Procedure Code(s): --- Professional --- 19002, Colonoscopy, flexible; with removal of tumor(s), polyp(s), or other lesion(s) by snare technique --- Technical --- 92342, Colonoscopy, flexible; with removal of tumor(s), polyp(s), or other lesion(s) by snare technique Diagnosis Code(s): --- Professional --- K64.4, Residual hemorrhoidal skin tags K63.5, Polyp of colon R10.12, Left upper quadrant pain --- Technical --- K64.4, Residual hemorrhoidal skin tags K63.5, Polyp of colon R10.12, Left upper quadrant pain CPT copyright 2019 [employer]. All rights reserved. The codes documented in this report are preliminary and upon surgical coder review may be revised to meet current compliance requirements. Dr. Alivia Kline MD M Carlito Kline MD 12/31/2021 10:36:33 AM This report has been signed electronically. Number of Addenda: 0 Note Initiated On: 12/31/2021 10:08 AM Procedure Date: 12/31/2021 10:08:52 AM Scope Withdrawal Time: 0 hours 9 minutes 30 seconds [facility] ENDOSCOPY 12/31/2021 10:0 8 AM MANAGER PROJECT Malcom Kline MD GI PROCEDURE ORDERAB LES [facility] ENDOSCOPY * HEMOGLOBIN A1C (03/09/2017 6:08 PM MANAGER PROJECT) Hemoglobin A1c 5.9 4.4 - 6.3 % [facility] Estimated Average Glucose 123 mg/dL [facility] Comment: HbA1c Interpretation: Treatment target values recommended by ADA and other clinical organizations should be used to evaluate metabolic control in patients. Treatment Target Values: Normal : < 5.7% Pre-diabetes: 5.7-6.4% Diabetes: Equal to or greater than 6.5% Reference: [place] [employer] Standards of Care in Diabetes -2014 In patients 70 years and older consider HbA1c target range of 7.0-7.5% Reference: Diabetes Mellitus in Older People: Position Statement on behalf of the International Association of Gerontology and Geriatrics (IAGG), the Diabetes Working Libertarian for Older People (EDWPOP), and the International Task Force of Experts in Diabetes. Kofi Marie et al. J [employer] Association. 2012 Test results diagnostic [...] BLOOD SPECIMEN / Unknown 03/09/2017 6:08 PM MANAGER PROJECT 03/09/2017 6:26 PM MANAGER PROJECT Kenyon Panchal MD LAB - CHEMISTRY TIKA JORDAN [facility] Organization Address City/State/ZIP Co de Phone Number [facility] [address] [place] [address] from Last 3 Months or Most Recently Relevant to Health Maintenance Care Teams Wharf Tender Head Relationship Specialty [place] [address] [place] [address] PCP - General Family Medicine 02/09/22 Meme Samuel, RN Registered Nurse 02/06/17 Adelina Trinidad DO [address] [facility] [address] [place] [id number] Rheumatology 07/07/22
[2024-04-02 12:01] LABS: LDL Cholesterol Direct 88 mg/dL
[2024-04-02 12:05] LABS: Vitamin D 25 Hydroxy 35.4 ng/mL
[2024-04-02 12:10] LABS: Creatinine Urine 117.4 mg/dL
[2024-04-02 12:21] LABS: MALB Creatinine Ratio < 5.1 mg/g (0-30); Microalbumin Urine Random < 6.0 mg/L (0-16.7)
== END 2024-04-02 10:35 | disposition home or self-care (01) ==
LOC: ANHLAB 10:35
PROVIDERS: PCP Emergency Medicine; Visit Provider Emergency Medicine
DX: E11.9 Type 2 diabetes mellitus without complications (principal); E55.9 Vitamin D deficiency, unspecified; E78.5 Hyperlipidemia, unspecified
CPT/HCPCS: 36415; 80053; 80061; 82043; 82306; 83036

== ENCOUNTER 2024-05-02 07:00 | Outpatient (NON) | payer OTHER, SELFPAY ==
--- OUTSIDE RECORDS SUMMARY | 2024-05-03 08:21 | XMS_ITS | Continuity of Care Document ---
Author Organization [facility] Address [address] [place] [address] [place] [address] Phone Care Team Providers Care Nuclear Physician Name Role Phone Thong Persaud MD Unavailable Unavailable Allergies, Adverse Reactions, Alerts Substance Reaction Status Criticality meloxicam Active No Information Medications Medication Instructions Dosage Effective Dates (start - stop) Status Comments [place] 5 mg-325 mg tablet take 1 tablet [...] Providers Copied on Encounter OFFICE/OUTPA TIENT VISIT, [facility], [place], operated [facility], [address], [place], [place], [address], [place] tel:[phone] [facility] chronic pain (chief complaint) asthma1 (chief complaint) HTN (chief complaint) AsthmaEssential (primary) hypertensionChronic pain syndrome 6 Hung [address]. [address], [place], [place], [address] , [place]. tel:[phone] Referring Provider: [address], [place], [place], [address]. tel:[phone] OFFICE/OUTPA TIENT VISIT, [facility], [place], operated by [facility], [address], [place], [place], [address], [place] tel:[phone] [facility] asthma1 (chief complaint) alcohol (chief complaint) back apin (chief complaint) arm numnbess1 (chief complaint) AsthmaAlcohol dependence, uncomplicatedChroni c pain syndromeNeuropathy 6 Hung [address]. [address], [place], [place], [address] , [place]. tel:[phone] Referring Provider: Asia [address]uti[address], [place], [place], [address]. tel:[phone] OFFICE/OUTPA TIENT VISIT, [facility], [place], operated [facility], [address], [place], [place], [address], [place] tel:[phone] [facility] HTN (chief complaint) back pain1 (chief complaint) asthma (chief complaint) HLP (chief complaint) AsthmaLumbagoEssent ial (primary) hypertensionHyperli pidemia 6 [address]. [address], [place], [place], [address] , [place]. tel:[phone] Referring Provider: Asia [address]uti[address], [place], [place], [address]. tel:[phone] OFFICE/OUTPA TIENT VISIT, [facility], [place], operated [facility], [address], [place], [place], [address], [place] tel:[phone] [facility] headache1 (chief complaint) eye (chief complaint) back pain1 (chief complaint) HeadacheLumbagoEsse ntial (primary) hypertensionConjunc tivitis 6 Hung [address]. [address], [place], [place], [address] , [place]. tel:[phone] Referring Provider: Asia Guti[address]rez [address], [place], [place], [address]. tel:[phone] OFFICE/OUTPA TIENT VISIT, [facility], [place], operated by [facility], [address], [place], [place], [address], [place] tel:[phone] [facility] HTN (chief complaint) back pain (chief complaint) lumbago1 (chief complaint) DM (chief complaint) HyperlipidemiaEssen tial (primary) hypertensionHeadach eLumbago 6 Hung [address]ito. [address], [address], [place], [place], [address] , [place]. tel:[phone] Referring Provider: Asia Guti[address], [place], [place], [address]. tel:[phone] OFFICE/OUTPA TIENT VISIT, [facility], [place], operated [facility], [address], [place], [place], [address], [place] tel:[phone] [facility] HTN (chief complaint) back pain1 (chief complaint) anxiety1 (chief complaint) Essential (primary) hypertensionChronic pain syndromeDepressionO besity 6 Hung [address]. [address], [place], [place], [address] , [place]. [phone] Referring Provider: Asia [address], [place], [place], [address]. tel:[phone] OFFICE/OUTPA TIENT VISIT, [facility], [place], operated [facility], [address], [place], [place], [address], [place] tel:[phone] [facility] chronic pain (chief complaint) HTN (chief complaint) HLP (chief complaint) anxiety1 (chief complaint) Chronic pain syndromeHyperlipide miaEssential (primary) hypertensionDepress ion 6 Hung [address]ito. [address], [place], [place], [address] , [place]. [phone] Referring Provider: Asia Gutiérrez [facility] [address], [place], [place], [address]. tel:[phone] OFFICE/OUTPA TIENT VISIT, [facility], [place], operated [facility], [address], [place], [place], [address], [place] tel:[phone] [facility] COPD1 (chief complaint) cough1 (chief complaint) preDM (chief complaint) HLP (chief complaint) bipolar (chief complaint) Metabolic syndromeHyperlipide miaAcute bronchitisChronic pain syndrome 6 [address]. [address], [facility] [address], [place], [place], [address] , [place]. [phone] Referring Provider: Asia Gutiérrez [facility] [address], [place], [place], [address]. tel:[phone] PREV VISIT, NEW, AGE 40-64 [facility], [address], [address], [place] tel:[phone] [facility] PHysical (chief complaint) Encounter for general adult medical exam w abnormal findingsType 2 diabetes mellitus without complicationsEssent ial (primary) hypertensionHyperli pidemia 6 [address]. [address], [facility] [address], [place], [place], [address] , [place]. [phone] Referring Provider: Asia Gutiérrez [facility] [address], [place], [place], [address]. tel:[phone] Family History Family Member Type Diagnosis Age At Onset Brother Problem (finding) Alive and well Father Problem (finding) Leukemia Mother Problem (finding) colon [place] 47 Payers Payer name Insurance type Covered constitution party ID Authorelizabeth tion(s) No Information Social [...] Mental Status Date Cognitive Assessment Orientation - [place] ed to time, place, person, situation.
--- OUTSIDE RECORDS SUMMARY | 2024-05-03 08:21 | XMS_ITS | Clinical Summary ---
Author Organization [facility] Address [address] [place] [address] Care Team Providers Care Rolling Mill Plugger Name Role Phone Unknown, Notinfile Primary Care [...] (10/20/2020): Added automatically from request for surgery [id number] Back pain with left-sided sciatica 10/19/2020 Diverticulosis 09/13/2020 Overview (09/13/2020): Added automatically from request for surgery [id number] Family history of colon cancer in mother 021 Overview (09/13/2020): Added automatically from request for surgery [id number] Hx of colonic polyps 09/13/2020 Overview (09/13/2020): Added automatically from request for surgery [id number] Diverticulosis of colon 09/11/2020 Assessment & Plan (09/11/2020 1:48 PM CDT): Colonoscopy and then recap in office Carpal tunnel syndrome of left wrist 06/30/2020 Tardive dyskinesia 04/28/2020 Complex dental caries 11/28/2019 Overview (11/28/2019): Added automatically from request for surgery [id number] Essential hypertension, malignant 11/28/2019 Overview (11/28/2019): Added automatically from request for surgery [id number] Breath, shortness 11/28/2019 Overview (11/28/2019): Added automatically from request for surgery [id number] Severe diabetes mellitus 11/28/2019 Overview (11/28/2019): Added automatically from request for surgery [id number] Posttraumatic stress disorder 11/28/2019 Overview (11/28/2019): Added automatically from request for surgery [id number] Anxiety 11/28/2019 Overview (11/28/2019): Added automatically from request for surgery [id number] Infection following a procedure, subsequent enco unter [...] on file Legal Sex Female 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 Current interpretive data was last revised 2018. Testing performed by: [facility], [address] [place] [address]., [id number] Creatinine Ur 182.5 mg/dL GENEVIEVE FONSECA (NICANOR) Comment: Interpretive Data No reference range established. Current interpretive data was last revised 2018. Testing performed by: [facility], [address] [place] [address]., [address] Albumin Creatinine Ratio, Ur 17 1 - 29 mg/g GEN[facility]IEVE FONSECA (N[place]) Comment:Testing performed by : [facility], [address] [place] [address]., [address] Urine 11/17/2020 11:0 0 AM CDT 11/17/2020 2:34 PM CDT Carla Harrell NP LAB URINE ORDERABLES Final R esult GENEVIEVE FONSECA ([place]) 1 [facility] [place] [address] * (ABNORMAL) Hemoglobin A1c (11/17/2020 10:48 AM [...] and children were not included. (Diabetes Care 31:9302-1479, 2008). The eAG is not equivalent to a fasting glucose. Blood 11/17/2020 10:4 8 AM CDT 11/17/2020 11:20 AM CDT Carla Kellie Harrell NURSING SPECIALIST LAB BLOOD ORDERABLES Final R esult GENEVIEVE FONSECA ([place]) 1 [facility] [place] [address] * (ABNORMAL) Lipid panel (11/17/2020 10:48 AM [...] CDT 11/17/2020 11:20 AM CDT Carla Harrell NURSING SPECIALIST LAB BLOOD ORDERABLES Final R esult GENEVIEVE FONSECA ([place]) 1 [facility] [place] [address] * COLONOSCOPY (10/22/2020 10:34 AM CDT) Anatomical Region Laterality Modality Other Narrative Procedure Note Yunior Barber MD - 10/22/2020 10:34 AM CDT [facility] Patient Name: Dipika Tran Procedure Date: 10/22/2020 10:34 AM Date of : 1970 Admit Type: Outpatient Age: 50 Gender: Female Attending MD: Yunior Barber M.D. Room: [facility] ENDOSCOPY ROOM 2 Note Status: Finalized Patient [...] scope was passed under direct vision. TheColonoscope [id number] was introduced through the anus and advanced [...] 10:34 AM Procedure Code(s): --- Professional --- 43986, Colonoscopy, flexible; diagnostic, including collection of specimen(s) by brushing or washing, when performed (separateprocedure) Diagnosis Code(s): --- Professional --- K57.30, Diverticulosis of large intestine without perforation orabscess without bleeding K64.9, Unspecified hemorrhoids CPT copyright 2019 [employer]. All rights reserved. The codes documented in this report are preliminary and upon pumper head reviewmay be revised to meet current compliance requirements. Recognized by the [employer] Society for Gastrointestinal Endoscopy for promoting quality in endoscopy Yunior Barber MD ENDOSCOPY PROCEDURES Final Re sult from Last 3 Months or Most Recently Relevant to Health Maintenance Insurance [facility] Advance Directives For more information, please contact: [phone] * Full Code (Latest Code Status on File) Date Activated Date Inactivated Comments 11/20/2020 10:55 AM 11/20/2020 4:37 PM * Full Code Date Activated Date Inactivated Comments 10/22/2020 10:43 AM 10/22/2020 4:47 PM * Full Code Date Activated Date Inactivated Comments 10/22/2020 10:43 AM 10/22/2020 10:43 AM * Full Code Date Activated Date Inactivated Comments 10/20/2020 10:09 AM 10/20/2020 2:59 PM Care Teams Rolling Mill Plugger Relationship Specialty Start Date End Date Unknown, Notinfile PCP - General 04/03/23
--- OUTSIDE RECORDS SUMMARY | 2024-05-03 08:21 | XMS_ITS | Clinical Summary ---
Author Organization [facility] Address [address] [facility] [place] [address] Care Team Providers Care Correctional Officer Captain Name Role Phone Meme Samuel RN Unavailable Unavailable Omar Delarosa MD, [facility] Primary Care Prov ider Adelina Trinidad DO Unavailable Source Comments [facility],non-owned Affiliates and Associated Physician Practices is amultiple site organization consisting of ambulatory clinics and hospital sitesin [place], [place], [place] and [place]. This disclosure is being madepursuant to the Care Everywhere program and may not contain all information available regarding this patient. Last updated 17.[facility] Allergies Active Allergy Reactions Criticality Noted Date [...] naloxone HCl (Narcan) 4 MG/0.1ML nasal spray Diana 1 (one) spray into the nose as [...] Oral DAILY, Reported on 08/25/2022 HYDROcodone-acetami nophen ([place]) 10-325 MG tabletIndications:C hronic pain disorder Take [...] TIME OR BEDTIME 01/27/2023 Active HYDROcodone-acetami nophen ([place]) 5-325 MG tablet Take 1 (one) tablet [...] Type Department Care Team Description 02/15/2024 Refill [facility] Neurosciences [address] [facility] [facility] [address] [place] [address] Kirsten Hadley APRN-SUSAN Refill Request from Last [...] Sex Assigned at Female 01/11/2022 4:28 AM MIDDLEWARE DEVELOPER Gender Identity Female 01/11/2022 4:28 AM MIDDLEWARE DEVELOPER Sexual Orientation Straight 01/11/2022 4: 28 AM MIDDLEWARE DEVELOPER Last Filed Vital Signs Vital Sign Reading [...] ENDOSCOPY, COLON, DIAGNOSTIC Routine 12/31/2021 10:08 AM MIDDLEWARE DEVELOPER Abdominal pain, LLQ (left lower quadrant) Constipation, unspecified constipation type HEMOGLOBIN A1C Routine 03/09/2017 6:08 PM MIDDLEWARE DEVELOPER from Last 3 Months or Most Recently [...] Trinidad DO LAB - CHEMISTRY TIKA JORDAN [facility] Organization Address City/State/ZIP Co de Phone Number [facility] [address] [place] [address] * HEPATITIS SCREEN ACUTE ([facility]) (07/06/2022 11:34 [...] Resulting Agency Comment Lab Testing performed at: [facility] [address] [facility] [phone] Adelina Trinidad DO LAB - CHEMISTRY TIKA JORDAN [facility] INSURANCE BILL [address] [place] [address] * ENDOSCOPY, COLON, DIAGNOSTIC (12/31/2021 10:08 AM MIDDLEWARE DEVELOPER) Report Endoscopy POC _ Patient Name: Dipika [...] for surveillance. Procedure Code(s): --- Professional --- 48871, Colonoscopy, flexible; with removal of tumor(s), polyp(s), or other lesion(s) by snare technique --- Technical --- 87079, Colonoscopy, flexible; with removal of tumor(s), polyp(s), or other lesion(s) by snare technique Diagnosis Code(s): --- Professional --- K64.4, Residual hemorrhoidal skin tags K63.5, Polyp of colon R10.12, Left upper quadrant pain --- Technical --- K64.4, Residual hemorrhoidal skin tags K63.5, Polyp of colon R10.12, Left upper quadrant pain CPT copyright 2019 [employer]. All rights reserved. The codes documented in this report are preliminary and upon director it project review may be revised to meet current compliance requirements. Dr. Alivia Kline MD Malcom Kline MD 12/31/2021 10:36:33 AM This report has been signed electronically. Number of Addenda: 0 Note Initiated On: 12/31/2021 10:08 AM Procedure Date: 12/31/2021 10:08:52 AM Scope Withdrawal Time: 0 hours 9 minutes 30 seconds [facility] 12/31/2021 10:0 8 AM MIDDLEWARE DEVELOPER Malcom Kline MD GI PROCEDURE ORDERAB LES [facility] * HEMOGLOBIN A1C (03/09/2017 6:08 PM MIDDLEWARE DEVELOPER) Hemoglobin A1c 5.9 4.4 - 6.3 % [facility] Estimated Average Glucose 123 mg/dL [facility] Comment: HbA1c Interpretation: Treatment target values recommended by ADA and other clinical organizations should be used to evaluate metabolic control in patients. Treatment Target Values: Normal : < 5.7% Pre-diabetes: 5.7-6.4% Diabetes: Equal to or greater than 6.5% Reference: [place] Diabetes Association Standards of Care in Diabetes -2014 In patients 70 years and older consider HbA1c target range of 7.0-7.5% Reference: Diabetes Mellitus in Older People: Position Statement on behalf of the International Association of Gerontology and Geriatrics (IAGG), the Diabetes Working Republican for Older People (EDWPOP), and the International Task Force of Experts in Diabetes. Kofi Marie et al. J [employer] Medical Directors Association. 2012 Test results diagnostic [...] BLOOD SPECIMEN / Unknown 03/09/2017 6:08 PM MIDDLEWARE DEVELOPER 03/09/2017 6:26 PM MIDDLEWARE DEVELOPER Kenyon Panchal MD LAB - CHEMISTRY TIKA JORDAN [facility] Organization Address City/State/ZIP Co de Phone Number [facility] [address] [place] [address] from Last 3 Months or Most Recently Relevant to Health Maintenance Care Teams Correctional Officer Captain Relationship Specialty Start [place] [address] [place] [address] PCP - General Family Medicine 02/09/22 Meme Samuel, RN Registered Nurse 02/06/17 Adelina Trinidad DO [address] [facility] [address] [place] [address] Rheumatology 07/07/22
--- OUTSIDE RECORDS SUMMARY | 2024-05-03 08:21 | XMS_ITS | Referral Summary ---
Author Organization [facility] Address [address] [place] [address] Care Team Providers Care Cafe Attendant Name Role Phone Unknown, Notinfile Primary Care [...] (10/20/2020): Added automatically from request for surgery [id number] Back pain with left-sided sciatica 10/19/2020 Diverticulosis 09/13/2020 Overview (09/13/2020): Added automatically from request for surgery [id number] Family history of colon cancer in mother 021 Overview (09/13/2020): Added automatically from request for surgery [id number] Hx of colonic polyps 09/13/2020 Overview (09/13/2020): Added automatically from request for surgery [id number] Diverticulosis of colon 09/11/2020 Assessment & Plan (09/11/2020 1:48 PM CDT): Colonoscopy and then recap in office Carpal tunnel syndrome of left wrist 06/30/2020 Tardive dyskinesia 04/28/2020 Complex dental caries 11/28/2019 Overview (11/28/2019): Added automatically from request for surgery [id number] Essential hypertension, malignant 11/28/2019 Overview (11/28/2019): Added automatically from request for surgery [id number] Breath, shortness 11/28/2019 Overview (11/28/2019): Added automatically from request for surgery [id number] Severe diabetes mellitus 11/28/2019 Overview (11/28/2019): Added automatically from request for surgery [id number] Posttraumatic stress disorder 11/28/2019 Overview (11/28/2019): Added automatically from request for surgery [id number] Anxiety 11/28/2019 Overview (11/28/2019): Added automatically from request for surgery [id number] Infection following a procedure, subsequent enco unter [...] on file Legal Sex Female 1:20 AM CALIBRATION TESTER Gender Identity Not on file Sexual Orientation [...] 07/03/2021 4:43 PM CDT Shawn Xiao Mary CHIEF POWER DISPATCHER LAB BLOOD ORDERABLES Final Result GENEVIEVE FONSECA ([place]) 1 [facility] Department [place] [address] * Screening Mammogram Bilateral W Pavan (07/03/2021 [...] was last revised 2018. Testing performed by: [address] [address] Creatinine Ur 182.5 mg/dL [facility] ([place]) Comment: Interpretive Data No reference range established. Current interpretive data was last revised 2018. Testing performed by: [address], [address] Albumin Creatinine Ratio, Ur 17 1 - 29 mg/g GENEVIEVE FONSECA ([place]) Comment:Testing performed by : [facility], [address] [facility], [address] Urine 11/17/2020 11:0 0 AM CDT 11/17/2020 2:34 PM CDT Carla Harrell CHIEF POWER DISPATCHER LAB URINE ORDERABLES Final R esult Performing Organization Address [facility] de Phone Number [facility] [address] [facility] [place] [address] * (ABNORMAL) Hemoglobin A1c (11/17/2020 10:48 AM [...] and children were not included. (Diabetes Care 31:6868-3543, 2008). The eAG is not equivalent to a fasting glucose. Blood 11/17/2020 10:4 8 AM CDT 11/17/2020 11:20 AM CDT Carla Harrell NP LAB BLOOD ORDERABLES Final R esult Performing Organization Address [facility] Co de Phone Number [facility] ([place]) 1 [facility] [place] [address] * (ABNORMAL) Lipid panel (11/17/2020 10:48 AM [...] 2017. Non-HDL Cholesterol 139 mg/dL GENEVIEVE FONSECA ([place]) Comment: Interpretive Data Ages < or = [...] on 2017. Chol/HDL ratio 5 MARTINE[facility] F[facility] ([place]) Blood 11/17/2020 10:4 8 AM CDT 11/17/2020 11:20 AM CDT Carla Harrell CHIEF POWER DISPATCHER LAB BLOOD ORDERABLES Final R esult GENEVIEVE FONSECA ([place]) 1 [facility] [place] [address] * COLONOSCOPY (10/22/2020 10:34 AM CDT) Anatomical Region Laterality Modality Other Narrative Procedure Note Yunior Barber MD - 10/22/2020 10:34 AM CDT [facility] Patient Name: Dipika Tran Procedure Date: 10/22/2020 10:34 AM Date of : 1970 Admit Type: Outpatient Age: 50 Gender: Female Attending MD: Yunior Barber M.D. Room: [facility] ENDOSCOPY ROOM 2 Note Status: Finalized Patient [...] scope was passed under direct vision. TheColonoscope [id number] was introduced through the anus and advanced [...] 10:34 AM Procedure Code(s): --- Professional --- 67489, Colonoscopy, flexible; diagnostic, including collection of specimen(s) by brushing or washing, when performed (separateprocedure) Diagnosis Code(s): --- Professional --- K57.30, Diverticulosis of large intestine without perforation orabscess without bleeding K64.9, Unspecified hemorrhoids CPT copyright 2019 [employer] Medical Association. All rights reserved. The codes documented in this report are preliminary and upon ferry boat captain reviewmay be revised to meet current compliance requirements. Recognized by the [employer] Society for Gastrointestinal Endoscopy for promoting quality in endoscopy Yunior Barber MD ENDOSCOPY PROCEDURES Final Re sult from Last 3 Months or Most Recently Relevant to Health Maintenance Insurance [facility] Advance Directives For more information, please contact: [phone] * Full Code (Latest Code Status on File) Date Activated Date Inactivated Comments 11/20/2020 10:55 AM 11/20/2020 4:37 PM * Full Code Date Activated Date Inactivated Comments 10/22/2020 10:43 AM 10/22/2020 4:47 PM * Full Code Date Activated Date Inactivated Comments 10/22/2020 10:43 AM 10/22/2020 10:43 AM * Full Code Date Activated Date Inactivated Comments 10/20/2020 10:09 AM 10/20/2020 2:59 PM Care Teams Cafe Attendant Relationship Specialty Start Date End Date Unknown, Notinfile PCP - General 04/03/23
--- OUTSIDE RECORDS SUMMARY | 2024-05-03 08:21 | XMS_ITS | Encounter Summary ---
Author Organization [facility] Address [address] [facility] [place] [address] Care Team Providers Care Auto Former Machine Operator Name Role Phone Meme Samuel RN Unavailable Unavailable Omar Delarosa MD, [facility] Primary Care Prov ider Adelina Trinidad DO Unavailable Encounter Details Date Type Department Care Team (Late st Contact Info) Description 03/07/2022 [facility] Outpatient Visit [facility] Orthopedics - Radiology [address] [place] [address] [place] [address] Document, Scanned Social History Tobacco Use Types Packs/Day Years Used Date Smoking Tobacco: Every Day Cigarettes Smokeless Tobacco: Never Comments:STOP 3 DAYS BEFORE SURGERY Alcohol Use Standard Drinks/Week Comments No 0 (1 standard drink = 0.6 oz pur e alcohol) Sex and Gender Information Value Date Recorded Sex Assigned at Female 01/11/2022 4:28 AM ASSET ADMINISTRATOR Gender Identity Female 01/11/2022 4:28 AM ASSET ADMINISTRATOR Sexual Orientation Straight 01/11/2022 4: 28 AM ASSET ADMINISTRATOR COVID-19 Exposure Response Date Recorded In the last 10 days, have yo u been in contact with someone who was confirmed or suspected to have Coronavirus/COVID-19? No / Unsure 03/03/2022 1:05 PM ASSET ADMINISTRATOR documented as of this encounter Functional Status [...] on filedocumented in this encounter Care Teams Auto Former Machine Operator Relationship Specialty Start [place] [address] [place] [address] PCP - General Family Medicine 02/09/22 Meme Samuel, RN Registered Nurse 02/06/17 Adelina Trinidad DO [address] [facility] [address] [place] [address] Rheumatology 07/07/22 documented as of this encounter
--- OUTSIDE RECORDS SUMMARY | 2024-05-03 08:21 | XMS_ITS | Data Portability ---
Author Organization [facility] NINGLong [facility] Address [address] [place] [address] Care Team Providers Care Business Analyst Intern Name Role Phone JOY PICKARD Program Director Cable Television Assessment Encounter Date Assessment Date Assessment LastModified [...] 2, meaningfu l use set 2024 025 eePenumbraa [facility], [address] [place] [address], [address], 5 09:49:06 hepatitis B surface Ab, qualitati ve, serum 2024 025 eePenumbraa [facility], [address] [place] [address], [address], 5 09:49:06 HBsAg (hepatiti s B surface Ag), EIA, serum 2024 025 [facility], [address] [place] [address], [address], 5 09:49:06 RPR (rapid plasma reagin), serum 2024 025 [facility], [address] [place] [address] [place], [address], 5 09:49:06 Hepatitis C IgG Ab, qual, serum 2024 025 eemeryma [facility], [address] [facility], [facility] 2, [place], [address], 5 09:49:06 vaginal pathogens panel, ALMITA+probe , vaginal fluid 2024 025 DANIELLE [facility], [address] [facility], [address], [place], [address], 06:37:27 urinalysi s, dipstick 2021 022 DANIELLE In-Office Order, Internal Use Only DO Not Attach Compendium DO Not Attach Compendium, Do Not Delete/merge, [id number] 15:34:00 culture, urine 2021 022 DANIELLE [facility], [address] [facility], [facility] 2, [place], [address], 11:55:43 HbA1c (hemoglob in A1c), blood 2021 022 In-Office Order, Internal Use Only DO Not Attach Compendium DO Not Attach Compendium, Do Not Delete/merge, [id number] 11:55:36 HbA1c (hemoglob in A1c), blood 2020 022 DANIELLE [facility], [address] [facility], [facility] 2, [place], [address], 03:10:52 albumin/c reatinine , mass ratio, urine 2020 022 DANIELLE [facility], [address] [facility], [facility] 2, [place], [address], 03:10:52 CMP, serum or plasma 2020 022 DANIELLE [facility], [address], [place], [address], 03:10:53 CBC 2020 022 DANIELLE [facility], [address], [place], [address], 03:10:53 lipid panel, serum 2020 022 DANIELLE [facility], [address], [place], [address], 03:10:53 HbA1c (hemoglob in A1c), blood 2020 021 DANIELLE [facility], [address], [place], [address], 15:12:35 albumin/c reatinine , mass ratio, urine 2020 021 DANIELLE [facility], [address], [place], [address], 15:12:34 CMP, serum or plasma 2020 021 DANIELLE [facility], [address], [place], [address], 15:12:34 CBC w/ auto diff 2020 021 DANIELLE [facility], [address], [place], [address], 15:12:34 lipid panel, serum 2020 021 DANIELLE [facility], [address], [place], [address], 15:12:35 CBC 2020 021 DANIELLE [facility], [address], [place], [address], 1 15:12:34 Referral orthopedi c surgeon referral - Please contact patient to schedule appointme nt. Thank you 2020 DANIELLE Hernandez PA-C, [address] [facility] , [address], [place], [address], 2 11:53:46 pain managemen t referral - Please contact patient to schedule appointme nt. Thank you 2020 tonja Ferris MD, 3 [facility], [address], [place], [address], 2 16:43:03 gastroent erologist referral - Please call patient to schedule - Thank you 2020 DANIELLE Barber MD, [address] [facility] [address], [address], [place], [address], 15:14:17 Procedures None recorded. Surgeries None recorded. Imaging None recorded. Medication Orders Macrobid 100 mg capsule 2021 [facility]/Pharmacy #[id number], 1 [place], [address], 2 08:26:19 acetamino phen 300 mg-codein e [address] [facility]/Pharmacy #[id number], 1 [place], [address], 5 14:03:49 clobetaso l 0.05 % scalp solution 2021 [facility]/Pharmacy #6833, 1 [place], [address], 5 14:04:30 diclofena c sodium 75 mg tablet,de layed release 2021 [facility] [address] [place], [address], 2 11:55:45 pregabali n 50 mg capsule 2021 022 [facility]/Pharmacy #6833, [address] [place], [address], 2 14:18:41 losartan 100 mg tablet 2021 022 [email or web address] [facility]/Pharmacy #6833, [address] [place], [address], 5 14:06:57 tramadol 50 mg tablet 2020 021 [facility] [address] [place], [address], 2 14:16:27 omeprazol e 20 mg capsule,d elayed release 2020 021 [facility]/Pharmacy #6833, 1 [place], [address], 1 15:22:41 omeprazol e 20 mg capsule,d elayed release 2020 021 [facility]/Pharmacy #6833, [address] [place], [address], 1 15:57:11 Cipro 500 mg tablet 2020 021 [email or web address] [facility]/Pharmacy #6833, [address] [place], [address], 14:43:28 Flagyl 500 mg tablet 2020 021 [email or web address] [facility]/Pharmacy #6833, [address] [place], [address], 1 14:44:43 tramadol 50 mg tablet 2020 021 [facility]/Pharmacy #[id number], [address] [facility], [place], [address], 14:16:27 Patient TargetsNo targets recorded. Patient Instructions Encounter Date Encounter Id Patient Instructions Last Modified By Organization Details Last Modified Time 08/25/2020 [id number] sore throat: car e instructions Not available 08/25/2020 16:24:57 Take all antibio tics prescribed to you. If any fever or increase in pain, call/return to office. 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 Diverticulosis of colon Please call [...] [facility] ([facility] Only) [address], [place], [address], 06/03/2021 06:33:45 05/13/19 22 05/12/2021 urina lysis , dipst ick Leukocytes Negati ve Not Available In-Office Order Internal Use Only DO Not Attach Compendium DO Not Attach Compendium, Do Not Delete/merge, [id number] 05/12/2021 11:46:42 05/13/19 22 05/12/2021 urina lysis [...] 05/12/2021 urina lysis , dipst ick Specific [place] 1.010 Not Available In-Off ice Order Internal [...] - 2 score abnormal Not Available [facility] ([facility]) [address] [place], [address], 03/21/2024 06:37:27 03/19/1903/20/2024 NUA B VAGIN ITIS PLUS (VG+) bvab 2 HIGH - 2 score abnormal Not Available [facility] ([facility]) [address] [facility], [place], [address], 03/21/2024 06:37:27 03/19/1903/20/2024 [facility] (VG+) megasphaera 1 [...] prese nce of BV. Not Available [facility] ([facility]) [address] [place], [address], 03/21/2024 06:37:27 03/19/1903/20/2024 NUA B VAGIN ITIS PLUS (VG+) luis albicans, ALMITA NEGATI VE negati ve Not Available [facility] ([facility]) [address] [place], [address], 03/21/2024 06:37:27 03/19/19 25 03/20/2024 NUA B VAGIN ITIS PLUS (VG+) luis glabrata, ALMITA NEGATI VE negati ve Not Available [facility] ([facility]) [address] [place], [address], 03/21/2024 06:37:27 03/19/1903/21/2024 NUA B VAGIN ITIS PLUS (VG+) trich vag by ALMITA NEGATI VE negati ve Not Available [facility] ([facility]) [address] [facility], [place], [address], 03/21/2024 06:37:27 03/19/19 25 03/21/2024 NUA B VAGIN ITIS PLUS (VG+) chlamydia trachomatis, ALMITA NEGATI VE negati ve Not Available [facility] ([facility]) [address] [facility], [place], [address], 03/21/2024 06:37:27 03/19/1903/21/2024 NUA B VAGIN ITIS PLUS (VG+) neisseria gonorrhoeae, ALMITA NEGATI VE negati ve Not Available [facility] ([facility]) [address] [facility], [place], [address], 03/21/2024 06:37:27 07/07/19 22 07/03/2021 MAMMO , scree nic, digit al, bilat eral No observ ation record ed. [email or web address] [facility] [address], [place], [address], 07/07/2021 10:31:05 Result Notes None recorded. Problems Name Problem SNOMED Code Status Onset Date Resolution Date Notes Provider Name and Address Organization Details Recorded Time Lumbago with sciatica 092754669 Active 2015 Not Available [facility] 0 10:24:13 Diabetic peripher al neuropat hy 816275040 Active 2015 Not Available [facility] 0 10:24:13 Neck pain 54721269 Active 2016 Not Available [facility] 0 10:24:13 Cervical radiculo alistair 06181625 Active 2015 Not Available [facility] 0 10:24:13 Disorder of wrist 188573769 Active 2016 Not Available [facility] 0 10:24:13 Meralgia paresthe bora 67841810 Active 2015 Not Available [facility] 0 10:24:14 Anxiety 74881089 Completed 201506/03/2020 Carla Harrell APN, FNP-C Attn: Accounting ,[address] [facility], [place], [address] , [place] 1 15:43:43 Fibromya lgia 801881050 Active 2015 Not Available [facility] 0 10:24:14 Carpal tunnel syndrome of right wrist 59301388203 9108 Active 2016 Not Available [facility] 0 10:24:14 Pronator syndrome 707350940 Active 2016 Not Available [facility] 0 10:24:14 Lumbago with sciatica 184951229 Active 2017 Not Available [facility] 0 10:24:13 Anxiety disorder 935237696 Active 2017 Not Available [facility] 0 10:24:13 Postoper ative infectio n 55304763 Completed 201706/03/2020 Carla Harrell APN, FNP-C Attn: Accounting ,[address] [facility], [place], [address] , [place] [facility] 1 15:44:05 Depressi ve disorder 25343362 Active 2020 Carla Harrell APN, FNP-C Attn: Accounting ,[address] [facility], [place], [address] , [place] 1 15:01:45 Gastroes ophageal reflux disease without esophagi tis 290369304 Active 2020 Carla Harrell APN, FNP-C Attn: Accounting ,[address] [facility], [place], [address] , [place] 1 15:50:34 Obesity 335437729 Active 2020 Carla Harrell APN, CONVERTER OPERATOR-C Attn: Accounting ,[address] [facility], [place], [place], [address] [place] [address] , [place] [facility] 1 15:59:58 Divertic ulosis of colon 834495052 Active 2020 Carla Harrell APN, CONVERTER OPERATOR-C Attn: Accounting ,[address] [facility], [place], [place], [address] [place] [address] , [place] [facility] 1 23:17:39 Carpal tunnel syndrome of left wrist 47712383970 9102 Active 2020 Carla Harrell APN, CONVERTER OPERATOR-C Attn: Accounting ,[address] [place], [place], [address] [place] [address] , [facility] - [facility] 1 15:21:46 Bronchit is 46437466 Completed 02/08/2016 Ximena Ward PA-C Attn: Accounting ,[address] [place], [place], [address] [place] [address] , [facility] - [facility] 6 14:01:55 Lumbar radiculo alistair 334730094 Active seeing pain mgmt Not Available [facility] 0 10:24:13 Urinary tract infectio us disease 12834797 Completed 02/08/2016 Ximena Ward PA-C Attn: Accounting ,[address] [place], [place], [address] [place] [address] , [place] [facility] 6 14:02:43 [facility]entia l hyperten malvin 11836965 Active Not Available [facility] 0 10:24:13 Type 2 diabetes mellitus 51388411 Active Not Available [facility] 0 10:24:13 Hyperlip idemia 00660441 Active Not Available [facility] 0 10:24:14 Neuropat hy due to diabetes mellitus 915599432 Active Not Available [facility] 0 10:24:13 Degenera tion of lumbar interver tebral disc 69312197 Active 08/2015 Lumbar injectio n from Dr. Pollock Not Available [facility] 0 10:24:13 Tobacco user 150588916 Active Not Available [facility] 0 10:24:13 Schizoph grace 28843880 Active Not Available [facility] 0 10:24:13 Bipolar disorder 01804176 Active Not Available [facility] 0 10:24:13 Posttrau matic stress disorder 42702137 Active Not Available [facility] 0 10:24:13 Chronic obstruct darlene pulmonar y disease 24410834 Active Not Available [facility] 0 10:24:13 Acute bronchit is 34413002 Completed 02/08/2016 Ximena Ward PA-C Attn: Accounting ,[address] [place], [address] , [facility] - [facility] 6 14:01:46 Morbid obesity 055571345 Active Not Available [facility] 0 10:24:13 Bacteria l vaginosi s 638113125 Completed 02/08/2016 Ximena Ward PA-C Attn: Accounting ,[address] [place], [address] , [place] [facility] 6 14:02:36 Disorder of vitamin D 322148357 Active 2016 Not Available [facility] 0 10:24:13 Tobacco dependen ce syndrome 43604792 Active 2016 Not Available [facility] 0 10:24:13 Pain in right thumb 37022848997 25128 Completed 201601/16/2018 Carla Harrell APN, CONVERTER OPERATOR-C Attn: Accounting ,[address] [place], [address] , [place] 8 16:47:26 Notes:[facility], mission and discharge is 10/09-DX: Principal Lumbar radiculopathy. Problem Notes None recorded. Procedures Surgical History Date Name Laterality Status Provider Name and Address Organization Details Recorded Time 4 total replacement of hip completed Sahra Parker [place] [facility] 03/19/2024 14:14:44 2 Date of Last Mammogram completed Sahra Parker [place] [facility] 03/19/2024 14:10:49 0 Date of Last Pap Smear completed Sahra Parker [place] 11/26/2019 12:09:11 7 Carpal tunnel surgery completed Betsy Saeed [place] [facility] 10/14/2019 14:01:56 Tubal Ligation completed Jalyn Dahl [facility] 04/16/2014 11:56:56 Dilation and Curettage completed Jalyn Dahl [facility] 04/16/2014 11:56:56 Caesarean Section completed Sahra Parker [place] [facility] 05/06/2015 10:47:39 Imaging Results Imaging Date Name Status LastModified by Organiz ation Details LastModified Time 07/03/2021 MAMMO, screening, digital, bilateral completed [email or web address] [facility]- [address], [place], [address], 07/07/2021 10:31:05 Procedure Notes None recorded. Medical Equipment None Reported. Allergies Allergen ID Allergen Name Allergen Category Reaction Reaction Severity Criticality Documentation Date Start Date Code Code System Note Provider Name and Address Organization Details Recorded Time 507073 meloxicam medicatio n Not available Not available Not available 02/21/20172015 91017 RxNorm Other react ions and sever ities : 'Swel ling - Mild' . Not Available Not Available Not Available 183776 propranol ol medicatio n other moderate Not available 05/12/2021 8787 RxNorm stoma ch pain Not Available Not Available Not Available 7692 Mobic medicatio n other moderate Not available 01/29/2014 50993 9 RxNorm Not Available Not Available Not [...] Updated DateTime 1 165.1 cm 43.5 kg/m2 115841. 36 g 97 % 97 % 86 [...] Updated DateTime 1 165.1 cm 41.4 kg/m2 735654. 5 g 96 % 96 % 76 /min 16 /min 97.2 [degF] 136 mm[Hg] 94 mm[Hg] Betsy Saeed [facility] 1 14:53:03 Date Recorded Systolic blood pressure Diastolic blood pressure Provider Name and Address Organization Details Last Updated DateTime 01/29/2021 132 mm[Hg] 88 mm[Hg] Carla Harrell APN, CHON-C Attn: Accounting,[address] [place], [address], [facility] 01/29/2021 15:10:19 Date Recorded Body height Body mass index (BMI) Body weight Oxygen saturation Oxygen saturation in Arterial blood by Pulse oximetry Heart rate Respiratory rate Body temperature Systolic blood pressure Diastolic blood pressure Provider Name and Address Organization Details Last Updated DateTime 2 165.1 cm 40.9 kg/m2 481663. 72 g 94 % 94 % 106 /min 16 /min 97.3 [degF] 130 mm[Hg] 80 mm[Hg] Betsy Saeed [facility] 2 11:43:07 Date Recorded Body height Body mass index (BMI) Body weight Heart rate Oxygen saturation Oxygen saturation in Arterial blood by Pulse oximetry Body temperature Systolic blood pressure Diastolic blood pressure Provider Name and Address Organization Details Last Updated DateTime 5 165.1 cm 35.5 kg/m2 64285.9 7 g 77 /min 97 % 97 % 98.5 [degF] 139 mm[Hg] 87 mm[Hg] Sahra Parker MA [facility] 5 13:56:51 Social History Question Answer Notes LastModified by Organizat ion Details LastModified Time Tobacco Smoking Status Current Every Day Smoker NUR[place], [facility] 01/29/2014 15:47:01 Do You Have An Advance [...] available 05/06/2015 What Is Your Occupation? Unemployed [email or web address] Information not available 10/14/2019 Are There Any [...] Anxious, Or Unable To Sleep At Night)? [id number] Information not available 06/03/2020 Do You Use [...] Father Myelodysplas tic syndrome (clinical) 76 77 Not available 14:21:27 Paternal Grandmother Hypertensive disorder [email or web address] Not available 2015 14:47:36 Maternal Grandmother Malignant tumor of pelvis bladde r [email or web address] Not available 10/14/2019 14:19:17 Maternal Grandmother Diabetes mellitus crexford Not available 2015 14:47:36 Paternal Aunt Malignant tumor of breast 68 68 [email or web address] Not available 09/21 14:18:23 Medical History Condition [...] Skin Problems Y Anemia N Heart Attack (NE) N Diabetes Y Ovarian Cancer N Blood [...] virus, quadrivalent, PF 9 completed Not Available [facility] 07/03/2021 19:41:06 Influenza, split virus, quadrivalent, preservative 9 completed Not Available [facility] 07/03/2021 19:41:06 Influenza, split virus, quadrivalent, PF 0 completed Not Available [facility] 07/03/2021 19:41:06 Influenza, split virus, quadrivalent, preservative 0 completed Not Available [facility] 07/03/2021 19:41:06 Pneumococcal conjugate PCV 13 4 completed Not Available [facility] 07/03/2021 19:41:06 Tdap 2 completed Not Available [facility] 07/03/2021 19:41:06 Influenza, split virus, quadrivalent, preservative 7 completed Not Available [facility] 03/09/2019 02:39:52 pneumococcal polysaccharide PPV23 7 completed Not Available [facility] 03/09/2019 02:46:08 Influenza, split virus, quadrivalent, preservative 7 completed Not Available [facility] 03/09/2019 02:34:26 Influenza, split virus, quadrivalent, preservative 8 completed Not Available [facility] 03/09/2019 02:36:00 Influenza, split virus, trivalent, preservative 4 completed Not Available [facility] 03/09/2019 02:51:03 Influenza, split virus, quadrivalent, PF 1 completed Betsymoira barker, [facility] 01/29/2021 16:43:42 Tdap 5 completed JOY PICKARD MD Attn: Accounting,[address] [facility], [place], [address], [facility] 03/19/2024 14:47:46 Pneumococcal conjugate PCV20, polysaccharide FQF325 conjugate, adjuvant, PF 5 completed JOY PICKARD MD Attn: Accounting,[address] [facility], [place], [address], [facility] 03/19/2024 14:47:46 Past Encounters Encounter ID Performer Location Encounter Start Date Encounter Closed Date Diagnosis/Indication Diagnosis SNOMED-CT Code Diagnosis ICD10 Code Diagnosis Note [id number] [facility] (Adult Med) [address] [place] [address] 01/29/2014 14:25:27 01/29/2014 16:34:25 Essential hypertension 28526734 well controlled . Continue Medication s Type 2 berta betes mellitus 56968715 well controlled . Last HBA1C was 5.7 on 09/10/13. Continue medication s. Hyperlipidemia 54335206 continue Simvastati n. Repeat the Lipid panel. Neuropathy due to diabetes mellitus 478060325 Patient takes Gabapentin 600 mg po 4 times daily. Degenerati on of lumbar intervertebral disc 52926141 Following Pain management and . Currently on Hydrocodon e prescribed by . Tobacco user 907242625 a dvised patient to quit smoking. Chronic ob structive pulmonary disease 88610817 continue Symbicort and Proair. Needs infl uenza immunization 615594550 [id number] TEMITOPE Montaño (Adult Med) [address] [place] [address] 04/16/2014 10:41:59 04/16/2014 12:32:17 Bronchitis 22303424 Afebrile.S aturating 98% on room air. will give Z pack. Continue Symbicort and Proair. Advised patient to use otc Mucinex. Advised patient to quit smoking. [id number] Dayana Alexander [facility] (Adult Med) [address] [place] [address] 06/05/2014 09:54:53 06/05/2014 11:15:32 Essential hypertension 35339695 well controlled . Continue Medication s Type 2 berta betes mellitus 81124271 well controlled . Last HBA1C was 6.3 Continue medication s. Hyperlipidemia 60517771 Increase the Simvastati n to 40 mg po daily Repeat the Lipid panel in 4 months. Chronic ob structive pulmonary disease 06204524 continue Symbicort and Ventolin.. Tobacco user 750238660 a dvised patient to quit smoking. [id number] [facility] [address] [place] [address] 09/11/2014 14:45:48 09/11/2014 16:52:31 Urinary tract infectious disease 08992386 Starting cipro 250 mg bid for 3 days. Continue fluids. Heat or ice pack prn back discomfort . [id number] [facility] (Adult Med) [address] [facility] [address] 10/06/2014 13:44:51 10/06/2014 14:57:02 Essential hypertension 29608986 well controlled . Continue Medication s Type 2 berta betes mellitus 92488013 well controlled . Last HBA1C was 5.9 Continue medication s. Hyperlipidemia 14436454 LDL well controlled . Continue Simvastati n. Repeat the Lipid panel in 4 months. Chronic ob structive pulmonary disease 24586742 continue Symbicort and Ventolin. Advised patient to quit smoking. Neuropathy due to diabetes mellitus 030612205 Patient is c/o neuropathi c pains in the legs.she is not taking the Neurantin. Patient is waiting to see the new Neurologis t. will refill the Gabapentin . [id number] Cally Parada (Adult Med) [address] [place] [address] 12/15/2014 14:58:22 12/15/2014 15:53:26 Acute bronchitis 15428643 J20.4 Patient to try mucinex otc to loosen secretions . Tessalon perles prn and zpak to start in 3 days if not better. [id number] [facility] [address] [place] [address] 03/10/2015 10:19:15 03/11/2015 15:04:03 Type 2 diabetes mellitus 17212300 E11.9 well controlled . Last HBA1C was 5.7. Continue same medication s. Essential hypertension 19940657 I10 well controlled . Continue Medication s Hyperlipidemia 10714634 E78.2 LDL well controlled . Continue Simvastati n. Chronic ob structive pulmonary disease 72189047 J44.9 continue Symbicort and Ventolin. Advised patient to quit smoking. Morbid obesity 570006231 E66.01 Advised 1500 calories low fat,low cholestero l,low carb diiabetic diet,regul ar exercise and weight reduction. Tobacco user 139080592 Z 72.0 advised patient to quit smoking. [id number] Rachel Parada ([employer]) [address] [place] [address] 05/06/2015 10:24:45 05/06/2015 11:31:24 Gynecologic examination 80491777 Z01.419 Venereal d isease screening 185979162 Z11.3 RTO one week for results. Screening for malignant neoplasm of breast 347139832 Z12.39 Screening for malignant neoplasm of colon 677632335 Z12.11 Has appointmen t in [place] 05/2015. Bacterial vaginosis 4197 23380 N76.0 Diagnosis d/w pt. Rx sent to pharmacy. Instructio dayami discussed. [id number] Rachel Parada ([employer]) [address] [place] [address] 05/20/2015 14:35:33 06/11/2015 17:28:40 Gynecologic examination 74569667 Z01.419 Pap was negative with negative hr-HPV, dwp. Venereal d isease screening 506217591 Z11.3 Vaginal culture was negative for gonorrhea, chlamydia, and trichomona s. STD panel was completely negative. Individual test results d/w pt. [id number] Carla Harrell APN, JJC [facility] (Adult Med) [address] [place] [address] 03/16/2016 10:45:24 03/16/2016 12:17:03 Type 2 diabetes mellitus 76136236 E11.9 Last HBA1C was 5.7. Continue same medication s. Dr David Persaud said she was no longer DM, Lab today. Essential hypertension 87672196 I10 well controlled . Continue propranolo l and losartan Hyperlipidemia 86861916 E78.2 LDL well controlled . Continue Simvastati n. Chronic ob structive pulmonary disease 80621567 J44.9 continue Symbicort and Ventolin. Advised patient to quit smoking. Morbid obesity 041388418 E66.01 advised 1500 calorie low fat, low cholestero l, low carb diet, regular exercise and weight reduction. Lumbar radiculopathy 128 671405 M54.16 please have records sent from Dr Persaud Adult heal th examination 601743009 Z00.00 Well woman exam advised, keep yearly apt. Conjunctivitis 1541631 H 10.9 Tobacco de pendence syndrome 26877933 F17.290 Continue to cut back on smoking. Upper resp iratory infection 50525798 J06.9 [id number] Carla Harrell APN, LUIS [facility]ada (Adult Med) [address] [place] [address] 04/18/2016 14:46:15 04/18/2016 16:07:09 Type 2 diabetes mellitus 37895549 E11.9 Last HbA1C was 5.9. Continue same medication s. Essential hypertension 31561303 I10 well controlled . Continue propranolo l and losartan. Chronic ob structive pulmonary disease 59655743 J44.9 continue Symbicort and Ventolin. Advised patient to quit smoking. Morbid obesity 516685638 E66.01 advised 1500 calorie low fat, low cholestero l, low carb diet, regular exercise and weight reduction. Tobacco de pendence syndrome 38425375 F17.290 Continue to cut back on smoking. Disorder of vitamin D 38 9970229 E56.9 When out of refills of weekly replacemen t, have blood drawn. Administra tion of influenza vaccine 76615838 Z23 [id number] Carla Harrell APN, LUIS Parada (Adult Med) [address] [place] [address] 08/17/2016 15:04:52 08/18/2016 09:15:45 Essential hypertension 88173667 I10 well controlled . Continue propranolo l and losartan. Disorder of vitamin D 38 8775901 E56.9 When out of refills of weekly replacemen t, have blood drawn. Type 2 berta betes mellitus 78151128 E11.9 Last HbA1C was 5.9. Continue ASA, metformin Morbid obesity 386537269 E66.01 advised 1500 calorie low fat, low cholestero l, low carb diet, regular exercise and weight reduction. Bipolar disorder 7823055 4 F31.9 cont medication s as prescribed by Tammy Feliz at [facility]; f/u with [facility] Administra tion of pneumococcal vaccine 34854400 Z23 Tobacco de pendence syndrome 56659346 F17.290 Continue to cut back on smoking. Chronic ob structive pulmonary disease 99556675 J44.9 continue aerospan and Ventolin. Advised patient to quit smoking. Hyperlipidemia 02348974 E78.2 LDL well controlled . Continue Simvastati n. Neuropathy due to diabetes mellitus 069941512 E11.[address] Jaeger. Pain in right thumb 1076 722108 496910 M79.644 fell on 08/11; landed on right hand trying to catch herself; Medication monitoring 39 4734638 Z51.81 Pain contract signed 03/16/16On tramadol-M ay need refill sooner due to increased pain from fall; no refills until drug screen; dwp no more than 4 tramadol per day. will be picking up today; May not refill until 09/07 at earliest if drug screen clean. Lesion of skin of face 5539883320 06 L98.9 [id number] Carla Harrell APN, LUIS DAMICO (Adult Med) [address] [place] [address] 10/19/2016 14:41:02 10/20/2016 13:52:15 Pain in right thumb 9411000086 316753 M79.644 fell on 08/11; landed on right hand trying to catch herself; reprinted xray orders, KEON Acute maxi llary sinusitis 85204890 J01.00 Conjunctivitis 0762424 H 10.9 [id number] Carla Harrell APN, LUIS DAMICO (Adult Med) [address] [place] [address] 12/19/2016 14:49:29 12/19/2016 17:54:17 Essential hypertension 28872267 I10 well controlled . Continue propranolo l and losartan. Hyperlipidemia 19115471 E78.2 LDL well controlled . Continue Simvastati n. Type 2 berta betes mellitus 78344413 E11.9 last a1c was 6.0 Chronic ob structive pulmonary disease 18036252 J44.9 Smoking cessation encouraged . Anxiety 15880969 F41.9 short term to help with anxiety state and not sleeping Administra tion of influenza vaccine 34624534 Z23 [id number] Carla Harrell APN, LUIS Parada (Adult Med) [address] [place] [address] 06/20/2017 15:35:33 06/21/2017 08:44:28 Chronic obstructive pulmonary disease 41503721 J44.9 Smoking cessation encouraged . Type 2 berta betes mellitus 27105963 E11.9 last a1c was 6.0, needs labs done Hyperlipidemia 49175675 E78.2 LDL well controlled . Continue Simvastati n. Essential hypertension 67589754 I10 well controlled . Continue propranolo l and losartan. Tobacco de pendence syndrome 78703278 F17.290 Continue to cut back on smoking. Morbid obesity 278340629 E66.01 advised low fat, low cholestero l, low carb diet, regular exercise and weight reduction. Bipolar disorder 6090879 4 F31.9 had medication s prescribed by Tammy Feliz at [facility], was fired due to no shows, was in hospital Schizophrenia 41707878 F 20.[address], not out of medication yet Fibromyalgia 360262814 M 79.7 diagnosed at [place] about 8 years ago, dwp doing yoga or other exercises to help stretch daily Dysuria 90948606 R30.0 Lumbago with sciatica 20 9472273 M54.41 M54.42 may cont with naproxen, seeing pain mgmt for injections [id number] Carla Harrell APN, LUIS Parada (Adult Med) [address] [place] [address] 09/27/2017 11:18:27 09/27/2017 14:25:26 Contact dermatitis 60257276 L25.9 dwp to not use off bug spray as she is likely allergic, will advise to use steroid cream topically to skin Pruritic disorder 860436 002 L29.9 rosa arms and posterior neck, dwo to avoid scratching skinwill provide vistaril to help with itching [id number] Carla Harrell APN, FNP-C [facility] (Adult Med) [address] [place] [address] 11/13/2017 11:41:02 11/13/2017 15:22:16 Administration of influenza vaccine 88753045 Z23 [facility] handout provided Anxiety disorder 5456106 06 F41.9 June cont prn vistaril until seen by psych, needs records release signed Loss of consciousness 41 8049812 R55 pt is poot historian and has unknown seizure hx, possibly had once before in her life; states her friends watched her pass out ; seizure hx with biological sister Dysuria 65495997 R30.0 urine pos for nitrates, blood and leuk, will send for culture as well as treat with [id number] Carla Harrell APN, FNP-C [facility] (Adult Med) [address] [place] [address] 2018 16:12:43 01/17/2018 11:40:22 Type 2 diabetes mellitus 25148493 E11.9 last a1c was 5.6 in 09/2017 Essential hypertension 77979726 I10 well controlled . Continue propranolo l 40 mg tid and losartan. Hyperlipidemia 14925054 E78.2 LDL well controlled . Continue Simvastati n. Disorder of vitamin D 38 7983787 E56.9 recheck Chronic ob structive pulmonary disease 38020713 J44.9 Smoking cessation encouraged . Tobacco de pendence syndrome 22253894 F17.290 Continue to cut back on smoking. Morbid obesity 934169452 E66.01 advised low fat, low cholestero l, low carb diet, regular exercise and weight reduction. Lumbago with sciatica 20 2221479 M54.41 M54.42 cont with pain mgmt as well, may have flexeril prn Screening for malignant neoplasm of colon 037952173 Z12.11 [id number] Carla Harrell APN, FNP-C [facility] (Adult Med) [address] [place] [address] 08/14/2018 11:23:15 08/15/2018 12:54:16 Type 2 diabetes mellitus 71760954 E11.9 last a1c was 5.6 in 09/2017, dwp to cont metformin and needs labs done today Essential hypertension 37497701 I10 stable; Continue propranolo l 40 mg tid and losartan. Hyperlipidemia 69465997 E78.2 needs lab, Continue Simvastati n. Disorder of vitamin D 38 3280396 E56.9 recheck level Chronic ob structive pulmonary disease 71791251 J44.9 Smoking cessation encouraged .cont inhalers- pt not sure which ones she has right now as they were changing so much. Tobacco de pendence syndrome 74627174 F17.290 Continue to cut back on smoking. Morbid obesity 354793706 E66.01 advised low fat, low cholestero l, low carb diet, regular exercise and weight reduction. Lumbago with sciatica 20 3672645 M54.41 M54.42 cont with pain mgmt as well, may have flexeril prn Fibromyalgia 911000919 M 77.7 diagnosed at [place] about 8 years ago, dwp doing yoga or other exercises to help stretch daily; cont duloxetine 60 mg, 30 mg total of 90 mg Lumbar radiculopathy 128 219341 M54.16 was seeing pain mgmt- needs new referral; no more refills of tramadol; ok for lyrica till seen [id number] Carla Harrell APN, [employer]-[facility] (Adult Med) [address] [place] [address] 01/24/2019 11:46:28 01/25/2019 08:48:26 Type 2 diabetes mellitus 40775592 E11.9 last a1c was 5.6 in 09/2017, dwp to cont metformin and needs labs done today Essential hypertension 05467585 I10 stable; Continue propranolo l 40 mg tid and losartan. Hyperlipidemia 08495733 E78.2 needs lab, Continue Simvastati n. Disorder of vitamin D 38 4019715 E56.9 recheck level Chronic ob structive pulmonary disease 50688097 J44.9 Smoking cessation encouraged .cont inhalers- pt not sure which ones she has right now as they were changing so much. Tobacco de pendence syndrome 96676259 F17.290 Continue to cut back on smoking. Morbid obesity 442930039 E66.01 advised low fat, low cholestero l, low carb diet, regular exercise and weight reduction. Lumbago with sciatica 20 6050636 M54.41 M54.42 cont with pain mgmt as well, may have flexeril prndwp to call if needing new referral for pain mgmt, was getting injections Fibromyalgia M 77.7 diagnosed at [place] several ago, dwp doing yoga or other exercises to help stretch daily; cont duloxetine 60 mg, 30 mg total of 90 mg Lumbar radiculopathy 128 M54.16 was seeing pain mgmt- needs new referral?; no more refills of tramadol; ok for lyrica till seen by pain mgmt Screening for malignant neoplasm of colon 511714501 Z12.11 Stool kit provided with [employer] for use. Anxiety disorder F4.28 June cont prn vistaril until seen by psych [id number] Carla Harrell APN, [employer]TER OPERATOR-[facility] (Adult Med) [address] [place] [address] 04/25/2019 16:01:22 04/29/2019 08:04:02 Type 2 diabetes mellitus 27637740 E11.9 last a1c was 5.6 in 09/2017, dwp to cont metformin and needs labs done today Essential hypertension 63252942 I10 stable; Continue propranolo l 40 mg tid and losartan. Hyperlipidemia 17544011 E78.2 needs lab, Continue Simvastati n. Disorder of vitamin D 38 5508868 E56.9 recheck level Chronic ob structive pulmonary disease 06037371 J44.9 Smoking cessation encouraged .cont inhalers- pt not sure which ones she has right now as they were changing so much. Anxiety disorder F4.9 June cont prn vistaril until seen by psych Tobacco user 307392452 Z 72.0 Smoking cessation encouraged . Lumbar radiculopathy 128 M54.16 was seeing pain mgmt- needs new referral?; no more refills of tramadol; ok for lyrica till seen by pain mgmt Screening for malignant neoplasm of breast 450091015 Z12.39 mammogram order given Health con dition feared but not present [id number] 52072 Z71.1 pt believes she had a stroke when she was arguing with kids a bout 2 months ago and now believes has droopy face on right and limp on left leg; neuro exam wnl dwp stroke is typically unilateral in nature, may be having more back pain; pt feels her stroke was more because she used to go to [employer] at 10 pm to go shopping and her put her on a budget and she is upset [id number] Carla Harrell APN, [facility] OPER[facility] (Adult Med) [address] [place] [address] 08/29/2019 08:20:50 08/30/2019 10:01:10 Type 2 diabetes mellitus 33264235 E11.9 last a1c was 5.8, dwp to cont metformin Essential hypertension 92273061 I10 stable; Continue propranolo l 40 mg tid and losartan. Hyperlipidemia 64824619 E78.2 needs lab, Continue Simvastati n. Chronic ob structive pulmonary disease 51112446 J44.9 Smoking cessation encouraged .cont inhalers- pt not sure which ones she has right now as they were changing so much. Anxiety disorder 8829147 06 F41.9 May cont prn vistaril; Tobacco user 012657600 Z 72.0 Smoking cessation encouraged . Lumbar radiculopathy 128 299858 M54.16 was seeing pain mgmt- needs new referral?; no more refills of tramadol; ok for lyrica till seen by pain mgmt going to [facility], got a shot and goes back next week for second shot Depressive disorder 7898 9007 F32.9 dwp to call [facility] to make apt [id number] Rachel Zeke DAMICO ([employer]) [address] [place] [address] 10/14/2019 13:45:25 10/15/2019 07:06:42 Gynecologic examination 32113779 Z01.419 Last pap done 05/06/15 was negative with negative hr-HPV. Pap due. Pap done. Venereal d isease screening 678860744 Z11.3 Telephone visit 2 weeks for results. Screening for malignant neoplasm of breast 000082434 Z12.39 Last 2013. Mother with breast CA Screening for malignant neoplasm of colon 533910407 Z12.11 Needs colonoscop y. Has FH colon CA, breast CA Family his tory of malignant neoplasm of breast in first degree relative 963126509 Z80.3 Mother with both breast and colon CA. Family his tory of cancer of colon 848240515 Z80.0 Mother with both breast and colon CA. Reduced libido 9294795 R 68.82 Male and female sexual response discussed. Pt. will work with to improve sex life. Body mass index 40+ - severely obese 251424040 Z68.41 nutrition and exercise discussed. Cigarette smoker 2361610 7 F17.210 Cessation discussed. Menopausal flushing 1983 39299 N95.1 Inability to give estrogen with smoking due to increased risk of blood clots like a PE, CVA, NE, DVT dwp. If pt. can stop smoking x 6 mo, she could take estrogen, dwp. [id number] Rachel Alanis Tal DAMICO ([employer]) [address] [place] [address] 11/26/2019 09:18:48 11/28/2019 11:49:12 Trichomonal vulvovaginitis 43073725 A59.01 Diagnosis d/w pt. Rx sent to pharmacy. In[employer] dayami discussed. Pt. instructed to have her partner(s) tested and treated. No sex until negative RAMAKRISHNA. RTO 3 weeks for RAMARKISHNA. [id number] Carla Harrell APN, CONVERTER OPERATOR-C [facility] (Adult Med) [address] [place] [address] 12/03/2019 08:20:57 12/04/2019 06:39:25 Type 2 diabetes mellitus 00040053 E11.9 last a1c was 5.8, dwp to cont metformin Essential hypertension 98554446 I10 stable; Continue propranolo l 40 mg tid and losartan. Hyperlipidemia 88800284 E78.2 Continue Simvastati n. Chronic ob structive pulmonary disease 12788868 J44.9 Smoking cessation encouraged .cont inhalers-p rn albuterol Anxiety disorder 9024686 06 F41.9 May cont prn vistaril; Tobacco user 347251496 Z 72.0 Smoking cessation encouraged . Lumbar radiculopathy 128 586467 M54.16 was seeing pain mgmt- needs new referral?; no more refills of tramadol; ok for lyrica till seen by pain mgmt going to [facility], Depressive disorder 2017 9007 F32.9 cont with psychiatry [id number] Carla Harrell APN, LUIS Parada (Adult Med) [address] [place] [address] 03/06/2020 09:09:45 03/10/2020 07:33:26 Type 2 diabetes mellitus 76126188 E11.9 last a1c was 6.2, dwp to cont metformin Essential hypertension 06449856 I10 stable; Continue propranolo l 40 mg tid and losartan. Hyperlipidemia 81518847 E78.2 Continue Simvastati n. Chronic ob structive pulmonary disease 67257851 J44.9 Smoking cessation encouraged .cont inhalers-p rn albuterol Anxiety disorder 0720969 06 F41.9 June cont prn vistaril; Tobacco user 469878211 Z 72.0 Smoking cessation encouraged . Lumbar radiculopathy 128 010532 M54.16 was seeing pain mgmt- no more refills of tramadol; ok for lyrica till seen by pain mgmt- going to [facility] Depressive disorder 3548 9007 F32.9 cont with psychiatry Endocrine/ metabolic screening 704302312 Z13.415 [id number] Carla Harrell APN, FNP-C [facility] (Adult Med) [address] [facility] [place] [address] 04/06/2020 08:51:00 04/07/2020 09:08:02 Chronic obstructive pulmonary disease 30550055 J44.9 Smoking cessation encouraged .cont inhalers-p rn albuterol Acute exac erbation of chronic obstructive pulmonary disease 653791118 J44.1 flare triggered by weather, will start medrol dose pack, pt requests cough pills, also rx nebulizer, advised pt to call if not improving Tardive dyskinesia 44190 9007 G24.01 was seeing neuro in [facility] and would like one closer Degenerati on of lumbar intervertebral disc 42942288 M51.36 was seeing pain mgmt, pt requests tylenol ER 650 mg [id number] Carla Harrell APN, FNP-C [facility] (Adult Med) [address] [place] [address] 06/03/2020 15:12:10 06/04/2020 08:50:14 Adult health examination 276050559 Z00.01 Encouraged routine [employer], vision, dental exams, well balanced diet. Screening for malignant neoplasm of colon 184695726 Z12.11 Stool kit provided with [employer] dayami for use. Disorder of vitamin D 38 3155309 E56.9 recheck level Essential hypertension 05015967 I10 elevated today, missing mid day dosing; dwp importance of med compliance and risk of adverse cardiac event Continue propranolo l and losartan. will change dosing to both meds to bid dosing with a slight increase to propranolo l as well: losartan 25 mg 2 tablets bid and propranolo l 60 mg bid Fibromyalgia 803941286 M 77.7 diagnosed at [place] several ago, dwp doing yoga or other exercises to help stretch daily; cont duloxetine 60 mg, 30 mg total of 90 mg pt is to see neuro in June and would like to resume celebrex and lyrica prior to that visit so meds can be adjusted when she goes, dwp options and will resums, lyrica at lower dose Hyperlipidemia 70148807 E78.2 Continue Simvastati n. Morbid obesity 056483742 E66.01 advised low fat, low cholestero l, low carb diet, regular exercise and weight reduction. Tobacco de pendence syndrome 70095611 F17.290 Continue to cut back on smoking. Type 2 berta betes mellitus 69046650 E11.9 last a1c was 6.2, today 6.1; dwp to cont metformin Chronic ob structive pulmonary disease 46679601 J44.9 Smoking cessation encouraged cont inhalers-p rn albuterol [id number] Carla Harrell APN, [employer]ATOR[facility] (Adult Med) [address] [place] [address] 08/25/2020 15:48:39 08/25/2020 18:49:39 Sore throat 165225542 J02.9 dwp to increase fluids, OTC cold med prn, rest, good handwashin g Diverticul osis of colon 268794548 K57.[address] from ER, increasing pain, dwp needs to follow up with GI or go to ER if pain worsening, justen lcover for bacterial infection with cipro and flagyl Degenerati on of lumbar intervertebral disc 27358515 M51.36 was seeing pain mgmt, but has not been able to go back;cont prn tylenol ER 650 mg, will send smll rx for severe pain only [id number] Carla Harrell APN, LUIS Parada (Adult Med) [address] [place] [address] 10/27/2020 14:58:17 10/28/2020 10:49:48 Degeneration of lumbar intervertebral disc 88810571 M51.36 was seeing pain mgmt, but has not been able to go back;cont prn tylenol ER 650 mg,will send new referral Essential hypertension 08930670 I10 improved dwp importance of med compliance and risk of adverse cardiac event Continue losartan 25 mg 2 tablets bid and propranolo l 60 mg bid Hyperlipidemia 11801298 E78.2 Continue Vasyltabrook n. Chronic ob structive pulmonary disease 77251059 J44.9 Smoking cessation encouraged cont inhalers-p rn albuterol Morbid obesity 337144482 E66.01 advised low fat, low cholestero l, low carb diet, regular exercise and weight reduction. Type 2 berta betes mellitus 79948860 E11.9 last a1c was 6.1; dwp to cont metformin Tobacco de pendence syndrome 98367264 F17.290 Continue to cut back on smoking. Gastroesop hageal reflux disease without esophagitis 098187365 K21.9 cont ppi, follow up with GI as planned Obesity 831594192 E66.9 advised low fat, low cholestero l diet, regular exercise and weight reduction. Diverticul osis of colon 080826661 K57.[address] from ER, recent colonoscop ydiet changes advised;dw p needs to follow up with GI [id number] Carla Harrell APN, LUIS Parada (Adult Med) [address] [place] [address] 01/29/2021 14:29:21 02/01/2021 10:44:07 Degeneration of lumbar intervertebral disc 35018289 M51.36 was seeing pain mgmt, but has not been able to go back;cont prn tylenol ER 650 mg,waiting on referral Essential hypertension 89740876 I10 improved with rest dwp importance of med compliance and risk of adverse cardiac event Continue losartan 25 mg 2 tablets bid and propranolo l 60 mg bid Hyperlipidemia 39009057 E78.2 Continue Vasyltabrook n. Chronic ob structive pulmonary disease 88000651 J44.9 Smoking cessation encouraged cont inhalers-p rn albuterol Morbid obesity 055671568 E66.01 advised low fat, low cholestero l, low carb diet, regular exercise and weight reduction. Type 2 berta betes mellitus 12493317 E11.9 last a1c was 5.8; dwp to cont metformin Tobacco de pendence syndrome 28007798 F17.290 Continue to cut back on smoking. 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 [id number] 98842 G56.02 was ready for surgery then covid halted it, needs new referral to ortho [id number] Carla Harrell APN, [facility] OPER[facility] (Adult Med) [address] [place] [address] 05/12/2021 11:22:54 05/13/2021 06:21:44 Psoriasis of scalp 089221867 L40.9 patch to forehead, since last July, has been trying to get it to go away using topicalspr n clobetasol Degenerati on of lumbar intervertebral disc 10891535 M51.36 was seeing pain mgmt, but has not been able to go back;pt states tramadol is no longer helping her, will change to tylenol with codeine until she can see pain mgmtpt also requesting increase to lyricawait ing on referral, pt is willing to do PT in order to get into pain mgmt Essential hypertension 96154465 I10 pt has been taking 300 mg losartan bid on her own, was advised that was incorrect dosing. dwp importance of med compliance and risk of adverse cardiac event Continue losartan 100 mg bid Gastroesop hageal reflux disease without esophagitis 916340716 K21.9 cont ppi, follow up with GI as planned Lumbago with sciatica 20 5124726 M54.41 M54.42 trying to get back into pain mgmtmay have flexeril prn,advise d diclofenac prn,cont lyricadwp to call if needing new referral for pain mgmt, was getting injections Type 2 berta betes mellitus 22021514 E11.9 last a1c was 5.8; dwp to cont metformin Dysuria 80938342 R30.0 urine pos for nitrates, blood and leuk, will send for culture as well as treat with macrobid [id number] MD Tal SPRINGER ([employer]) [address] [place] [address] 03/19/2024 13:03:25 03/22/2024 16:31:12 Positive screening for depression on PHQ-9 (Patient Health Questionnaire 9) 6457870760 68490 Z13.31 - Referred to at [facility] by PCP Routine gy necologic examination done 2153279178 9101 Z01.419 - Reviewed risks for infection and cancer; ordered screening tests as appropriat e- Patient to follow up with PCP for routine cardiovasc ular disease screening- UTD on cervical cancer screening until 09/2024 Screening for malignant neoplasm of breast 677977800 Z12.31 - Mammo ordered by PCP Venereal d isease screening 924303544 Z11.3 - STI screening including serum testing per patient request Administra tion of diphtheria, pertussis, and tetanus vaccine 966381004 Z23 Administra tion of pneumococcal vaccine 11452696 Z23 Health Concerns Section Related Observation LastModified by Organization Detai ls LastModified Time None Recorded Concern Status LastModified by Organization Details LastModified Time None Recorded Advance Directives Directive N: Payers Encounter Date Sequence Insurance Name Policy Number Policy Poole Covered Member ID Poole Member ID Guarantor Name 08/25/2020 1 [facility] - DOS PRIOR TO 2020 (MEDICAID REPLACEMENT - HMO) Dipika Tran [id number] Dipika Tran 10/27/2020 1 [facility] - DOS ON OR AFTER 20 (MEDICAID REPLACEMENT - HMO) Dipika Tran [id number] Dipika Tran 01/29/2021 1 [facility] (MEDICAID HMO) [id number] 0003 Dipika Tran [id number] Dipika Tran 05/12/2021 1 [facility] (MEDICAID HMO) [id number] 0003 Dipika Tran [id number] Dipika Tran 03/19/2024 1 [facility] (MEDICAID HMO) [id number] 0003 Dipika Tran [id number] Dipika Marc Notes Date Note Type Note Provider Name and Address Organization Details Recorded Time 1 text/html has been in pain for the last month. Pt claim it large intestine. would like to be referred to have colonoscopy Carla Harrell APN, FNP-C Attn: Accounting,[address] [facility], [place], [address], [facility] 08/25/2020 16:29:13 1 text/html Throat PainReported bypatient.Location:level of pain Quality:aching Severity:moderate Duration:started 1 week(s) ago Onset/Timing:constant Alleviating Factors:cold medicine Aggravating Factors:smoking Associated Symptoms:throat tickle/itch Diet History:caffeine; sodaNotes:had a fever for a day but broke last night.gargled peroxide, no sinus drainage Carla Harrell APN, FNP-C Attn: Accounting,[address] [facility], [place], [address], [facility] 08/25/2020 16:29:13 1 text/html COPDReported bypatient.Onset/Timing:in termittent; [...] for [facility] if possible Carla Harrell APN, CONVERTER OPERATOR-C Attn: Accounting,[address] [facility], [place], [address], [facility] 10/27/2020 23:19:59 1 text/html [...] FNP-C Attn: Accounting,[address], [place], [address], [facility] 01/29/2021 17:42:32 2 text/html COPDReported bypatient.Onset/Timing:in termittent; [...] FNP-C Attn: Accounting,[address], [place], [address], [facility] 05/12/2021 14:19:55 5 text/html [...] ppd. JOY PICKARD MD Attn: Accounting,[address] [place], [address], [facility] 03/19/2024 15:25:14 OBGyn Episode Ob Episode Information Episode Created Date Number of Fetuses Patient Bloodtype Patient rh Status Prepregnancy Weight lbs Domestic Partner Domestic Partner Phone Father Name Professor Of Religious Studies Status 05/06/19 16 1 CLOSED Fetus Data First Name Last Name Admitted to NICU Weight (g) Sex Living Outcome Pediatric Complications Fetus ID Race Codes Race Delivery Type 3628.73 6 M Full Term 13910 Brendan Calculation Initial Brendan Date Initial Exam [...] Domestic Partner Domestic Partner Phone Father Name Professor Of Religious Studies Status 05/06/19 16 1 CLOSED Fetus Data First Name Last Name Admitted to NICU Weight (g) Sex Living Outcome Pediatric Complications Fetus ID Race Codes Race Delivery Type , Induced 65749 Brendan Calculation Initial Brendan Date Initial Exam [...] Domestic Partner Domestic Partner Phone Father Name Professor Of Religious Studies Status 05/06/19 16 1 CLOSED Fetus Data First Name Last Name Admitted to NICU Weight (g) Sex Living Outcome Pediatric Complications Fetus ID Race Codes Race Delivery Type , Induced 23683 Brendan Calculation Initial Brendan Date Initial Exam [...] Domestic Partner Domestic Partner Phone Father Name Professor Of Religious Studies Status 05/06/19 16 1 CLOSED Fetus Data First Name Last Name Admitted to NICU Weight (g) Sex Living Outcome Pediatric Complications Fetus ID Race Codes Race Delivery Type 3175.14 4 M Full Term 78842 Brendan Calculation Initial Brendan Date Initial Exam [...] Domestic Partner Domestic Partner Phone Father Name Professor Of Religious Studies Status 05/06/19 16 1 CLOSED Fetus Data First Name Last Name Admitted to NICU Weight (g) Sex Living Outcome Pediatric Complications Fetus ID Race Codes Race Delivery Type 3175.14 4 F Full Term 34115 Brendan Calculation Initial Brendan Date Initial Exam [...] Domestic Partner Domestic Partner Phone Father Name Professor Of Religious Studies Status 05/06/19 16 1 CLOSED Fetus Data First Name Last Name Admitted to NICU Weight (g) Sex Living Outcome Pediatric Complications Fetus ID Race Codes Race Delivery Type 3628.73 6 F Full Term 51156 Brendan Calculation Initial Brendan Date Initial Exam [...] Domestic Partner Domestic Partner Phone Father Name Professor Of Religious Studies Status 05/06/19 16 1 CLOSED Fetus Data First Name Last Name Admitted to NICU Weight (g) Sex Living Outcome Pediatric Complications Fetus ID Race Codes Race Delivery Type Ectopic 91640 Brendan Calculation Initial Brendan Date Initial Exam [...] Domestic Partner Domestic Partner Phone Father Name Professor Of Religious Studies Status 05/06/19 16 1 CLOSED Fetus Data First Name Last Name Admitted to NICU Weight (g) Sex Living Outcome Pediatric Complications Fetus ID Race Codes Race Delivery Type 3175.14 4 F Full Term 63646 Brendan Calculation Initial Brendan Date Initial Exam [...] Domestic Partner Domestic Partner Phone Father Name Professor Of Religious Studies Status 05/06/19 16 1 CLOSED Fetus Data First Name Last Name Admitted to NICU Weight (g) Sex Living Outcome Pediatric Complications Fetus ID Race Codes Race Delivery Type , Spontane ous 04487 Brendan Calculation Initial Brendan Date Initial Exam [...] Domestic Partner Domestic Partner Phone Father Name Professor Of Religious Studies Status 05/06/19 16 1 CLOSED Fetus Data First Name Last Name Admitted to NICU Weight (g) Sex Living Outcome Pediatric Complications Fetus ID Race Codes Race Delivery Type , Induced 18515 Brendan Calculation Initial Brendan Date Initial Exam [...]
--- OUTSIDE RECORDS SUMMARY | 2024-05-03 08:22 | XMS_ITS | Referral Summary ---
Author Organization [facility] Address [address] [place] [address] Care Team Providers Care Photogrammetric Engineer Name Role Phone Meme Samuel RN Unavailable Unavailable Omar Delarosa MD, Raymond Campton Primary Care Prov ider Adelina Trinidad DO Unavailable Source Comments [facility],non-owned Affiliates and Associated Physician Practices is amultiple site organization consisting of ambulatory clinics and hospital sitesin [place], [place], [place] and [place]. This disclosure is being madepursuant to the Care Everywhere program and may not contain all information available regarding this patient. Last updated 17.[facility] Encounters Date Type Department Care Team Description 02/15/2024 Refill [facility] Neurosciences [address] [place] [address] Kirsten Hadley APRN-CNP Refill Request from Last [...] naloxone HCl (Narcan) 4 MG/0.1ML nasal spray Mclean 1 (one) spray into the nose as [...] Oral DAILY, Reported on 08/25/2022 HYDROcodone-acetami nophen (Tea) 10-325 MG tabletIndications:C hronic pain disorder Take [...] TIME OR BEDTIME 01/27/2023 Active HYDROcodone-acetami nophen (Tea) 5-325 MG tablet Take 1 (one) tablet [...] Sex Assigned at Female 01/11/2022 4:28 AM SILK OPENER Gender Identity Female 01/11/2022 4:28 AM SILK OPENER Sexual Orientation Straight 01/11/2022 4: 28 AM SILK OPENER Last Filed Vital Signs Vital Sign Reading [...] ENDOSCOPY, COLON, DIAGNOSTIC Routine 12/31/2021 10:08 AM SILK OPENER Abdominal pain, LLQ (left lower quadrant) Constipation, unspecified constipation type HEMOGLOBIN A1C Routine 03/09/2017 6:08 PM SILK OPENER from Last 3 Months or Most Recently Relevant to Health Maintenance Results * (ABNORMAL) COMPREHENSIVE METABOLIC PANEL (11/14/2022 4:59 PM CDT) [facility] Glucose 82 70 - 105 [...] LAB - CHEMISTRY ORDE JULIAN [facility] [address] [place], [place] [id number] * HEPATITIS SCREEN ACUTE ([facility]) (07/06/2022 11:34 [...] Resulting Agency Comment Lab Testing performed at: [facility] [address] [phone] Adelina Trinidad DO LAB - CHEMISTRY [employer] JULIAN Performing Organization Address City/[facility]/ZIP Co de Phone Number [facility] INSURANCE BILL [address] [place] [address] * ENDOSCOPY, COLON, DIAGNOSTIC (12/31/2021 10:08 AM SILK OPENER) Report Endoscopy POC _ Patient Name: Dipikarahel [...] for surveillance. Procedure Code(s): --- Professional --- 00383, Colonoscopy, flexible; with removal of tumor(s), polyp(s), or other lesion(s) by snare technique --- Technical --- 89602, Colonoscopy, flexible; with removal of tumor(s), polyp(s), or other lesion(s) by snare technique Diagnosis Code(s): --- Professional --- K64.4, Residual hemorrhoidal skin tags K63.5, Polyp of colon R10.12, Left upper quadrant pain --- Technical --- K64.4, Residual hemorrhoidal skin tags K63.5, Polyp of colon R10.12, Left upper quadrant pain CPT copyright 2019 [employer]. All rights reserved. The codes documented in this report are preliminary and upon information coder review may be revised to meet current compliance requirements. Dr. Alivia Kline MD Malcom Kline MD 12/31/2021 10:36:33 AM This report has been signed electronically. Number of Addenda: 0 Note Initiated On: 12/31/2021 10:08 AM Procedure Date: 12/31/2021 10:08:52 AM Scope Withdrawal Time: 0 hours 9 minutes 30 seconds [facility] ENDOSCOPY 12/31/2021 10:0 8 AM SILK OPENER Malcom Kline MD GI PROCEDURE ORDERAB LES Performing Organization Address City/State/[facility] Co de Phone Number [facility] * HEMOGLOBIN A1C (03/09/2017 6:08 PM SILK OPENER) Hemoglobin A1c 5.9 4.4 - 6.3 % [facility] Estimated Average Glucose 123 mg/dL [facility] Comment: HbA1c Interpretation: Treatment target values recommended by ADA and other clinical organizations should be used to evaluate metabolic control in patients. Treatment Target Values: Normal : < 5.7% Pre-diabetes: 5.7-6.4% Diabetes: Equal to or greater than 6.5% Reference: [place] [employer] Standards of Care in Diabetes -2014 In patients 70 years and older consider HbA1c target range of 7.0-7.5% Reference: Diabetes Mellitus in Older People: Position Statement on behalf of the International Association of Gerontology and Geriatrics (IAGG), the Diabetes Working [employer] for Older People (EDWPOP), and the International Task Force of Experts in Diabetes. Kofi Marie, et al. J [employer]. 2012 Test results diagnostic [...] BLOOD SPECIMEN / Unknown 03/09/2017 6:08 PM SILK OPENER 03/09/2017 6:26 PM SILK OPENER Kenyon Panchal MD LAB - CHEMISTRY TIKA JORDAN [facility] [address] [phone] from Last 3 Months or Most Recently Relevant to Health Maintenance Care Teams Photogrammetric Engineer Relationship Specialty [place] [address] [place] [phone] PCP - General Family Medicine 02/09/22 Meme Samuel, RN Registered Nurse 02/06/17 Adelina Trinidad DO [address] [facility] [address] [place] [address] Rheumatology 07/07/22
--- OUTSIDE RECORDS SUMMARY | 2024-05-03 08:22 | XMS_ITS | Patient Health Summary ---
Author Organization [facility] Address [address] [place] [address] Care Team Providers Care Nurse'S Assistant Name Role Phone Meme Samuel RN Unavailable Unavailable Omar Delarosa MD, Formerly [facility] Primary Care Prov ider Adelina Trinidad DO Unavailable Note from [facility] in [place],non-owned Affiliates and Associated Physician Practices is amultiple site organization consisting of ambulatory clinics and hospital sitesin [place], [place], [place] and [place]. This disclosure is being madepursuant to the Care Everywhere program and may not contain all information available regarding this patient. Last updated 17.[facility] Allergies * Trazodone(Anaphylaxis) -High Criticality * Meloxicam(Swelling) [...] HCl (Narcan) 4 MG/0.1ML nasal spray(Started 12/20/2021) Odin 1 (one) spray into the nose as [...] CAPSULE BY MOUTH EVERY DAY * HYDROcodone-acetaminophen (Kistler) 10-325 MG tablet(Started 08/22/2022) Take 1 (one) [...] AT DINNER TIME OR BEDTIME * HYDROcodone-acetaminophen (Kistler) 5-325 MG tablet(Started 03/22/2023) Take 1 (one) [...] Sex Assigned at Female 01/11/2022 4:28 AM MECHANICAL AND AUTO BODY CAR CHECKER Gender Identity Female 01/11/2022 4:28 AM MECHANICAL AND AUTO BODY CAR CHECKER Sexual Orientation Straight 01/11/2022 4: 28 AM MECHANICAL AND AUTO BODY CAR CHECKER Last Filed Vital Signs Vital Sign Reading [...] GLUCOSE - POINT OF CARE(Performed 04/18/2022) * [place] REVISE MEDIAN N/CARPAL TUNNEL SURG(Performed 04/18/2022) Performed [...] lower quadrant), Constipation, unspecified constipation type * [place] COLONOSCOPY, DIAGNOSTIC(Performed 12/31/2021) Performed for Abdominal pain, [...] 11/14/2022 6:01 PM CDT [facility] Specific [place] UA 1.025 1.005 - 1.030 11/14/2022 6:01 PM CDT [facility] Blood UA 2+(A) Negative 11/14/2022 6:01 PM CDT [facility] pH UA 5.0 5.0 - 8.0 pH 11/14/2022 6:01 PM CDT [facility] Protein UA 1+(A) Negative 11/14/2022 6:01 PM CDT -[facility] Urobilinogen UA 2.0(A) Negative mg/dL 11/14/2022 6:01 PM CDT [facility] Nitrite UA Negative Negative 11/14/2022 6:01 PM T -[facility] Leukocyte UA 1+(A) Negative 11/14/2022 6:01 PM T -[facility] Urine Microscopy Urine microscopy to follow 11/14/2022 6:01 PM T [facility] Urine URINE SPECIMEN OBTAINED BY CLEAN CATCH PROCEDURE / Unknown Collection / Unknown 11/14/2022 4:59 PM CDT 11/14/2022 5:53 PM CDT [facility] - 11/14/2022 6:01 PM CDT Ascorbic Acid can cause false negative urine strip tests for blood, glucose, nitrite, and bilirubin. Adelina Trinidad DO LAB - URINALYSIS ORD ERABLES Performing Organization Address [facility]/ZIP Co de Phone Number [facility] [address] [place] [address] * (ABNORMAL) URINE MICROSCOPIC ONLY (11/14/2022 4:59 PM CDT) RBC UA >100(A) 0 - 5 # /hpf 11/14/2022 6:04 PM CDT [facility] WBC UA 21-50(A) 0 - 5 # /hpf 11/14/2022 6:04 PM CDT [facility] Hyaline Casts >20(A) 0 - 2 /LPF 11/14/2022 6:04 PM CDT [facility] Calcium Oxalate Crystals Many(A) None [...] Trinidad DO LAB - URINALYSIS ORD ERABLES [facility] [address] [place] [address] * C-REACTIVE PROTEIN (11/14/2022 4:59 PM CDT) Only the most recent of3 resultswithin the time period is included. C-Reactive Protein 0.11 <=0.50 mg/dL 11/14/2022 5:30 PM CDT [facility] Blood BLOOD SPECIMEN / Unknown Lab Venipuncture / Unknown 11/14/2022 4:59 PM CDT 11/14/2022 5:08 PM CDT Adelina Trinidad DO LAB - CHEMISTRY TIKA JORDAN [facility] [address] [place] [address] * (ABNORMAL) KETTY BLOOD TITER (11/14/2022 4:59 PM CDT) Speckled 1:80(A) <1:80 11/16/2022 11:53 AM CDT [facility] Blood BLOOD SPECIMEN / Unknown Lab Venipuncture / Unknown 11/14/2022 4:59 PM CDT 11/14/2022 5:08 PM CDT Narrative [facility] - 11/16/2022 11:53 AM CDT Methodology: Indirect Immunofluorescence Assay (IFA) utilizing Hep-2-Gamma cells. Adelina Trinidad [place] CHEMISTRY [employer] JULIAN Performing Organization Address [facility] Co de Phone Number [facility] [address] [place] [address] * (ABNORMAL) KETTY BLOOD SCREEN W/REFLEX TITER (11/14/2022 4:59 PM CDT) Only the most recent of2 resultswithin the time period is included. KETTY Positive(A ) Negative 11/16/2022 11:53 AM CDT [facility] Blood BLOOD SPECIMEN / Unknown Lab Venipuncture / Unknown 11/14/2022 4:59 PM CDT 11/14/2022 5:08 PM CDT Narrative [facility] - 11/16/2022 11:53 AM CDT Methodology: Indirect Immunofluorescence Assay (IFA) utilizing Hep-2-Gamma cells. AdelinaAragon Consulting Groupani [employer] LAB - CHEMISTRY [employer] [facility] [address] [place] [address] * COMPLEMENT TOTAL (11/14/2022 4:59 PM CDT) Pathologist [facility] Complement Total CH50 >60 >41 U/mL 11/16/2022 3:07 PM CDT [facility] ([facility]) Comment: Age Male Female 1 - 30 [...] CDT 11/14/2022 5:08 PM CDT Narrative [facility] ([facility]) - 11/16/2022 3:07 PM CDT Performed at: [address] [place] [id number] [employer] Software Tester: Valerio Marks PhD, Phone: [phone] Adelina Trinidad DO LAB - CHEMISTRY ORDE RABNANCY Performing Organization Address City/[facility]/ZIP Co de Phone Number [facility]) [address] [place] [address] * ERYTHROCYTE SEDIMENTATION RATE (11/14/2022 4:59 PM CDT) Only the most recent of3 resultswithin the time period is included. [facility] Erythrocyte Sedimentation Rate Automated 18 0 - 30 MM/HR 11/14/2022 5:18 PM CDT [facility] Blood BLOOD SPECIMEN / Unknown Lab Venipuncture / Unknown 11/14/2022 4:59 PM CDT 11/14/2022 5:08 PM CDT Adelina Trinidad DO LAB - HEMATOLOGY ORD ERABLES [facility] [address] [place] [address] * (ABNORMAL) CBC WITH DIFFERENTIAL (11/14/2022 4:59 [...] - 1 % 11/14/2022 5:12 PM CDT -[facility] Neutrophil Absolute 2.82 2.01 - 7.14 x10E9/L 11/14/2022 5:12 PM CDT [facility] Lymphocytes Absolute 2.71 1.07 - 3.94 x10E9/L 11/14/2022 5:12 PM CDT [facility] Monocytes Absolute 0.36 0.26 - 1.07 x10E9/L 11/14/2022 5:12 PM CDT -[facility] Eosinophils Absolute 0.12 0 - 0.47 x10E9/L 11/14/2022 5:12 PM CDT -[facility] Basophils Absolute 0.04 0 - 0.08 x10E9/L 11/14/2022 5:12 PM CDT -[facility] Immature Granulocytes Absolute 0.01 0.00 - 0.06 x10E9/L 11/14/2022 5:12 PM CDT [facility] nRBC Auto 0 /100 WBC 11/14/2022 5:12 PM CDT [facility] Blood BLOOD SPECIMEN / Unknown Lab Venipuncture / Unknown 11/14/2022 4:59 PM CDT 11/14/2022 5:08 PM CDT Adelina Trinidad DO LAB - HEMATOLOGY ORD ERABLES [facility] [address] [place] [address] * COMPLEMENT C4 (11/14/2022 4:59 PM CDT) Complement C4 41 15 - 57 mg/dL 11/14/2022 10:15 PM CDT [facility] Blood BLOOD SPECIMEN / Unknown Lab Venipuncture / Unknown 11/14/2022 4:59 PM CDT 11/14/2022 5:08 PM CDT Adelina Vivi DO LAB - SEROLOGY ORDER ASHLEY [facility] [address] [place] [address], [facility] [phone] * (ABNORMAL) COMPREHENSIVE METABOLIC PANEL (11/14/2022 4:59 [...] mL/min/1.7 3 m2 11/14/2022 5:30 PM CDT [facility] Blood BLOOD SPECIMEN / Unknown Lab Venipuncture / Unknown 11/14/2022 4:59 PM CDT 11/14/2022 5:08 PM CDT Adelina Trinidad DO LAB - CHEMISTRY ORDE RABLES [facility] [address] [place] [address] * (ABNORMAL) PROTEIN CREATININE RATIO URINE RANDOM PNL (11/14/2022 4:59 PM CDT) Only the most recent of2 resultswithin the time period is included. Protein Urine 22.7(H) <11.9 mg/dL 11/14/2022 6:12 PM CDT [facility] Creatinine Urine 310.77 mg/dL 11/14/2022 6:12 PM CDT [facility] Protein/Creatin ine Ratio Urine 0.07 11/14/2022 6:12 PM CDT [facility] Urine URINE SPECIMEN OBTAINED BY CLEAN CATCH PROCEDURE / Unknown Collection / Unknown 11/14/2022 4:59 PM CDT 11/14/2022 5:53 PM CDT Adelina Trinidad DO LAB - URINE CHEMISTR Y ORDERABLES [facility] [address] [place] [address] * COMPLEMENT C3 (11/14/2022 4:59 PM CDT) Complement C3 136 82 - 193 mg/dL 11/14/2022 10:14 PM CDT [facility] Blood BLOOD SPECIMEN / Unknown Lab Venipuncture / Unknown 11/14/2022 4:59 PM CDT 11/14/2022 5:08 PM CDT Adelina Trinidad DO LAB - CHEMISTRY TIKA JORDAN [facility] [address] [place] [address], [facility] [phone] * PAIN MANAGEMENT PROCEDURE TIME (09/06/2022 10:11 [...] DATE/TIME OF EXAM: 08/02/2022 3:32 PM, LOCATION [facility] INDICATION: M16.12: Unilateral primary osteoarthritis, left hip [...] PLACEMENT, DATE/TIME OF EXAM: 33:32 PM, LOCATION [facility] INDICATION: M16.12: Unilateral primary osteoarthritis, left hip [...] Resulting Agency Comment Lab Testing performed at: [facility] [address] [phone] Adelina Trinidad DO LAB - CHEMISTRY TIKA JORDAN [facility] INSURANCE BILL [address] [place] [address] * INTERPRETATION REFLEXED (07/06/2022 11:34 AM CDT) Interpretation [facility] INSURANCE BILL Comment: Not infected with HCV unless early or acute infection is suspected (which may be delayed in an immunocompromised individual), or other evidence exists to indicate HCV infection. 07/06/2022 11:3 4 AM CDT 07/06/2022 Narrative Resulting Agency Comment Lab Testing performed at: [facility] [address] [phone] Adelina Trinidad DO LAB - SEROLOGY ORDER ASHLEY [facility] INSURANCE BILL [address] [place] [address] * EARLY SJOGREN'S SYNDROME PROFILE (07/06/2022 11:34 [...] in primary sjogren's syndrome. J Immunol; 185: 8564-2446. Manish Lebron et al. (2012). Novel autoantibodies in Sjogren's syndrome. Clinical Immunology;145, 251-255. *This test has been developed and performance parameters have been validated by [employer] This test has not been approved by the U.S. Food and Drug Administration (FDA); however, US FDA approval is not required for clinical use. It is not intended that clinical diagnosis and patient management decisions be made using these results alone. This test has been validated using serum samples. The technical clerk has not determined the efficacy of this test when performed on CSF, plasma, joint or pleural fluid specimens. The performance characteristics of this test were determined by [employer] Blood BLOOD SPECIMEN / Unknown 07/06/2022 11:34 AM CDT 07/06/2022 Narrative Resulting Agency Comment Lab Testing performed at: [facility] [address] [place] [phone] Adelina Trinidad DO LAB - SEROLOGY ORDER ASHLEY [facility] INSURANCE BILL [address] [place] [address] * IGG SUBCLASS 4 (07/06/2022 11:34 AM CDT) IgG Subclass 4 17 2 - 96 mg/dL [facility] INSURANCE BILL Blood BLOOD SPECIMEN / Unknown 07/06/2022 11:34 AM CDT 07/06/2022 Narrative Resulting Agency Comment Lab Testing performed at: [facility] [address] [phone] Adelina Trinidad DO LAB - CHEMISTRY ORDE RABLES [facility] INSURANCE BILL [address] [place] [address] * (ABNORMAL) URINALYSIS MICROSCOPIC ONLY REFLEXED (07/06/2022 [...] Resulting Agency Comment Lab Testing performed at: [facility] [address] [phone] Adelina Trinidad DO LAB - URINALYSIS ORD ERABLES [facility] INSURANCE BILL [address] [place] [address] * (ABNORMAL) URINALYSIS W/MICROSCOPIC NO CULTURE (07/06/2022 11:34 AM CDT) Specific [place] UA 1.026 1.005 - 1.030 [facility] INSURANCE [...] Resulting Agency Comment Lab Testing performed at: [facility] [address] [phone] Adelina Trinidad DO LAB - URINALYSIS ORD ERABLES Performing Organization Address City/[facility]/ZIP Co de Phone Number [facility] INSURANCE BILL [address] [place] [address] * MYOSITIS ANTIBODY PANEL COMPREHENSIVE (07/06/2022 11:31 [...] <20 Units [facility] INSURANCE BILL Anti-U1 PURSE FRAMER By EIA <20 <20 Units [facility] INSURANCE BILL U2 sn PURSE FRAMER Antibody Negative Negative [facility] INSURANCE BILL Fibrillarin (U3 PURSE FRAMER) Negative Negative [facility] INSURANCE BILL Comment: Interpretation for Anti-Evelina-1, Aeur-QIX-2crqcx, Anti-MDA-5, Anti-NXP-2, Anti-PM/Scl-100, Anti-SS-A 52 kD, Anti-U1 PURSE FRAMER: Negative: <20 Weak Positive: 20 - 39 Moderate Positive: 40 - 80 Strong Positive: >80 . Blood BLOOD SPECIMEN / Unknown 07/06/2022 11:31 AM CDT 07/06/2022 Narrative [facility] INSURANCE BILL - 07/24/2022 11:06 PM CDT Test(s) 105597-Ogkt-YZ-1 Ab (RDL); 235565-Qlrp-VD-44 Ab (RDL); 865911-Iyhc-BY Ab (RDL); 082540-Ozfi-XS Ab (RDL); 287217- Anti-SRP Ab (RDL); 903583-Voyq-Nt-4 Ab (RDL); 314746- Mnmq-JHF-0risog Ab (RDL); 936563-Seoa-GLG-4 Ab (CADM-140)(RDL); 804894-Moej-EEL-9 (P140) Ab (RDL); 282977-Ibmw-DI/Scl-100 Ab (RDL); 820832-Ywuu-Pl Ab (RDL); 051053-Eezz-AT-Q 52kD Ab, IgG (RDL); 360038- was developed and its performance characteristics determined by [facility]. It has not been cleared or approved by the Food and Drug Administration. Resulting Agency Comment Lab Testing performed at: [facility] [address] [place] [phone] Adelina Trinidad DO LAB - CHEMISTRY ORDE RABNANCY Performing Organization Address [facility] Co de Phone Number [facility] INSURANCE BILL [address] [place] [address] * CRYOGLOBULIN SCREEN W/ REFLEX (07/06/2022 11:31 AM CDT) Pathologist [facility] Cryoglobulin Qualitative None detected [facility] INSURANCE BILL Comment: None Detected at 72 hours This test was developed and its performance characteristics determined by [facility]. It has not been cleared or approved by the Food and Drug Administration. Blood BLOOD SPECIMEN / Unknown 07/06/2022 11:31 AM CDT 07/06/2022 Narrative Resulting Agency Comment Lab [facility] performed [facility]: [facility] [address] [phone] Adelina Trinidad DO LAB - CHEMISTRY ORDE JULIAN Performing Organization Address [facility] Co de Phone Number [facility] INSURANCE BILL [address] [place] [address] * URIC ACID BLOOD (07/06/2022 11:31 AM CDT) Uric Acid 6.5 3.0 - 7.2 mg/dL [facility] INSURANCE BILL Comment:Therapeutic target f or gout patients: <6.0 Blood BLOOD SPECIMEN / Unknown 07/06/2022 11:31 AM CDT 07/06/2022 Narrative Resulting Agency Comment Lab Testing performed at: [facility] [address] [phone] Adelina Trinidad DO LAB - CHEMISTRY ORDE JULIAN Performing Organization Address [facility]/ZIP Co de Phone Number [facility] INSURANCE BILL [address] [place] [address] * HLA TYPING B27 (07/06/2022 11:31 AM CDT) HLA-B27 Negative [facility] INSURANCE BILL Comment: HLA-B*27 Negative B27 allele interpretation for all loci based on IMGT/HLA database version 3.44 This test was developed and its performance characteristics determined by [facility]. It has not been cleared or approved by the Food and Drug Administration. HLA Lab CLIA ID Number [id number] . This test was performed using PCR [...] Resulting Agency Comment Lab Testing performed at: [facility] [address] [phone] Adelina Trinidad DO LAB - CHEMISTRY TIKA JORDAN [facility] INSURANCE BILL [address] [place] [address] * VITAMIN D 25-HYDROXY (07/06/2022 11:31 AM CDT) Only the most recent of2 resultswithin the time period is included. Pathologist [facility] Vitamin D, 25 Hydroxy 32.0 30.0 - 100.0 ng/mL [facility] INSURANCE BILL Comment: Vitamin D deficiency has been defined by the [place] of Medicine and an Endocrine Society practice guideline as a level of serum 25-OH vitamin D less than 20 ng/mL (1,2). The Endocrine Society went on to further define vitamin D insufficiency as a level between 21 and 29 ng/mL (2). 1. IOM ([place] of [employer]). 2010. Dietary reference intakes for calcium and D. [place]: The National Academies Press. 2. Jh MF, Mc FERNANDES, Johnnie LUTZ, et al. Evaluation, treatment, and prevention of vitamin D deficiency: an Endocrine Society clinical practice guideline. JCEM. 2010; 96(7):1911-30. Blood BLOOD SPECIMEN / Unknown 07/06/2022 11:31 AM CDT 07/06/2022 Narrative Resulting Agency Comment Lab Testing performed at: [facility] [address] [phone] Adelina Trinidad DO LAB - CHEMISTRY ORDE RABLES [facility] INSURANCE BILL [address] [place] [address] * ANGIOTENSIN CONVERTING ENZYME BLOOD (07/06/2022 11:31 AM CDT) Angiotensin-Con verting Enzyme 59 14 - 82 U/L [facility] INSURANCE BILL Blood BLOOD SPECIMEN / Unknown 07/06/2022 11:31 AM CDT 07/06/2022 Narrative Resulting Agency Comment Lab Testing performed at: [facility] [address] [phone] Adelina Trinidad DO LAB - CHEMISTRY ORDE RABLES Performing Organization Address [facility]/ZIP Co de Phone Number [facility] INSURANCE BILL [address] [place] [address] * (ABNORMAL) ALDOLASE (07/06/2022 11:31 AM CDT) Aldolase 2.7(L) 3.3 - 10.3 U/L [facility] INSURANCE BILL Blood BLOOD SPECIMEN / Unknown 07/06/2022 11:31 AM CDT 07/06/2022 Narrative Resulting Agency Comment Lab Testing performed at: [facility] [address] [facility] [phone] Adelina Trinidad DO LAB - CHEMISTRY ORDE RABLES Performing Organization Address City/[facility]/ZIP Co de Phone Number [facility] INSURANCE BILL [address] [place] [address] * QUANTIFERON TB-GOLD (07/06/2022 11:31 AM CDT) [...] Resulting Agency Comment Lab Testing performed at: [facility] [phone] Adelina Trinidad DO LAB - CHEMISTRY TIKA JORDAN [facility] Organization Address City/State/ZIP Co de Phone Number [facility] INSURANCE BILL [address] [place] [address] * CK BLOOD (07/06/2022 11:31 AM CDT) Only the most recent of2 resultswithin the time period is included. Pathologist [facility] CK 180 32 - 182 U/L [facility] INSURANCE BILL Blood BLOOD SPECIMEN / Unknown 07/06/2022 11:31 AM CDT 07/06/2022 Narrative Resulting Agency Comment Lab Testing performed at: [facility] [phone] Adelina Trinidad DO LAB - CHEMISTRY ORDGene JORDAN [facility] INSURANCE BILL [address] [place] [address] * VITAMIN B12 (07/06/2022 11:31 AM CDT) Vitamin B12 932 232 - 1,245 pg/mL [facility] INSURANCE BILL Blood BLOOD SPECIMEN / Unknown 07/06/2022 11:31 AM CDT 07/06/2022 Narrative Resulting Agency Comment Lab Testing performed at: [facility] [address] [facility] [phone] Adelina Trinidad DO LAB - CHEMISTRY ORDGene JORDAN Performing Organization Address City/[facility]/ZIP Co de Phone Number [facility] INSURANCE BILL [address] [place] [address] * (ABNORMAL) COMPLEMENT C3 C4 PANEL (07/06/2022 11:31 AM CDT) Complement C3 155 82 - 167 mg/dL [facility] INSURANCE BILL Complement C4 39(H) 12 - 38 mg/dL [facility] INSURANCE BILL Blood BLOOD SPECIMEN / Unknown 07/06/2022 11:31 AM CDT 07/06/2022 Narrative Resulting Agency Comment Lab Testing performed at: [facility] [address] [phone] Adelina Trinidad DO LAB - CHEMISTRY TIKA JORDAN Performing Organization Address City/[facility]/ZIP Co de Phone Number [facility] INSURANCE BILL [address] [place] [address] * TSH (07/06/2022 11:31 AM CDT) TSH 1.150 0.450 - 4.500 uIU/mL [facility] INSURANCE BILL Blood BLOOD SPECIMEN / Unknown 07/06/2022 11:31 AM CDT 07/06/2022 Narrative Resulting Agency Comment Lab Testing performed at: [facility] [address] [facility] [phone] Adelina Trinidad DO LAB - CHEMISTRY TIKA JORDAN [facility] INSURANCE BILL [address] [place] [address] * (ABNORMAL) GLUCOSE - POINT OF CARE (04/18/2022 7:52 AM MECHANICAL AND AUTO BODY CAR CHECKER) Only the most recent of2 resultswithin the time period is included. Glucose WB/POC 108(H) 70 - 106 mg/dL 04/18/2022 7:59 AM MECHANICAL AND AUTO BODY CAR CHECKER [facility] Specimen Type Cap Fingerstick 2022 7:59 AM MECHANICAL AND AUTO BODY CAR CHECKER [facility] Blood BLOOD SPECIMEN / Unknown 04/18/2022 7:52 AM MECHANICAL AND AUTO BODY CAR CHECKER 04/18/2022 7:59 AM MECHANICAL AND AUTO BODY CAR CHECKER Tejal Mccabe MD LAB - POINT OF CARE ORDERABLES [facility] [address] [place] [address] * LAB RESULTS ORDER (04/18/2022) 04/18/2022 Narrative 04/18/2022 Ordered by an unspecified provider. Scanned Document LAB - THERAPEUTIC DR UG MONITORING ORDERABLES * XR PELVIS W BILAT HIP 2VW (04/14/2022 12:58 PM MECHANICAL AND AUT[employer] BODY CAR CHECKER) Anatomical Region Laterality Modality Pelvis, Lower Extremity Radiogra phic Imaging 04/14/2022 3:04 PM MECHANICAL AND AUT[employer] BODY CAR CHECKER Impressions 04/14/2022 3:06 PM MECHANICAL AND AUT[employer] BODY CAR CHECKER IMPRESSION: Severe degenerative osteoarthritis left hip as described above. > Interpreting Provider: Kuldip Bedoya MD on 04/14/2022 3:06 PM Narrative 04/14/2022 3:06 PM MECH[employer]ICAL AND AUT[employer] BODY CAR CHECKER PROCEDURE: XR PELVIS W BILAT HIP 2VW, DATE/TIME OF EXAM: 04/14/2022 1:03 PM, LOCATION [facility] INDICATION: R76.8: Other specified abnormal immunological [...] 2VW, DATE/TIME OF EXAM: 31:03 PM, LOCATION [facility] INDICATION: R76.8: Other specified abnormal immunological [...] BILAT 2VW OR LESS (04/14/2022 12:52 PM MECHANICAL AND AUT[employer] BODY CAR CHECKER) Anatomical Region Laterality Modality Lower Extremity Radiographic Ghazal ging 04/14/2022 3:50 PM MECHANICAL AND AUTO BODY CAR CHECKER Impressions 04/14/2022 3:52 PM MECHANICAL AND AUTO BODY CAR CHECKER IMPRESSION: 1. No acute fracture or knee joint effusion. 2. Mild osteoarthritic changes of the medial central weightbearing compartments bilaterally. > Interpreting Provider: Joshua Mandujano MD on 04/14/2022 3:52 PM Narrative 04/14/2022 3:52 PM MECHANICAL AND AUT[employer] BODY CAR CHECKER PROCEDURE: XR KNEE BILAT 2VW OR LESS, DATE/TIME OF EXAM: 04/14/2022 3:42 PM, LOCATION [facility] INDICATION: R76.8: Other specified abnormal immunological [...] LESS, DATE/TIME OF EXAM: 33:42 PM, LOCATION [facility] INDICATION: R76.8: Other specified abnormal immunological [...] MRI BRAIN WWO CONTRAST (03/14/2022 9:42 AM MECHANICAL AND AUTO BODY CAR CHECKER) Anatomical Region Laterality Modality Head Magnetic Resonan ce 03/14/2022 9:47 AM MECHANICAL AND AUT[employer] BODY CAR CHECKER Impressions 03/14/2022 9:49 AM MECHANICAL AND AUT[employer] BODY CAR CHECKER IMPRESSION: Limited by motion Otherwise essentially normal MRI of the brain > Interpreting Provider: Calin Tavarez MD on 03/14/2022 9:49 AM Narrative 03/14/2022 9:49 AM MECHANICAL AND AUT[employer] BODY CAR CHECKER PROCEDURE: MRI BRAIN WWO CONTRAST, DATE/TIME OF [...] parenchyma appears relatively normal. There is normal jhonson and white matter signal intensity. No subacute [...] W LEFT HIP 2VW (01/11/2022 3:55 AM MECHANICAL AND AUTO BODY CAR CHECKER) Anatomical Region Laterality Modality Pelvis Radiographic Ghazal ging 01/11/2022 9:23 AM MECHANICAL AND AUTO BODY CAR CHECKER Impressions 01/11/2022 9:24 AM MECHANICAL AND AUTO BODY CAR CHECKER IMPRESSION: Mild symmetric osteoarthrosis, SI joints. Moderate, asymmetric osteoarthrosis of the LEFT hip. > Interpreting Provider: Salvador Hughes MD on 01/11/2022 9:24 AM Narrative 01/11/2022 9:24 AM MECHANICAL AND AUTO BODY CAR CHECKER PROCEDURE: XR PELVIS W LEFT HIP 2VW, [...] PATHOLOGY TISSUE EXAM (STL) (12/31/2021 10:37 AM MECHANICAL AND AUTO BODY CAR CHECKER) Only the most recent of2 resultswithin the time period is included. Case Report Surgical Pathology Report Case: [id number] Authorizing Provider: Malcom Kline MD Collected: 12/31/2021 10:37 AM Ordering Location: [facility] Received: 12/31/2021 01:10 PM Pathologist: Chad Zarate MD Specimen: Polyp Descending, x1 CS 01/03/2022 2:33 PM MECHANICAL AND AUTO BODY CAR CHECKER [facility] Final Diagnosis Colon, descending, endoscopic polypectomy: Hyperplastic polyp 01/03/2022 2:33 PM MECHANICAL AND AUTO BODY CAR CHECKER [facility] Clinical History Colonoscopy performed to evaluate left upper quadrant pain in a 51-year-old female demonstrates 6 mm sessile descending colon polyp. 01/03/2022 2:33 PM MECHANICAL AND AUTO BODY CAR CHECKER [facility] Gross Description One specimen received in a formalin filled container labeled descending polyp x1 consists of a 16 x 4 x 3 mm jefferson-red polypoid tissue. Polyp is sectioned and is entirely submitted in A1. 01/03/2022 2:33 PM MECHANICAL AND AUTO BODY CAR CHECKER [facility] Disclaimer All histochemical and/or immunohistochemical results are interpreted with controls that demonstrate appropriate staining reactions before reporting results. Note on use of immunocytochemistry reagents: This test was developed and its performance characteristic determined by [facility], Department of Laboratory Medicine. It has not [...] be interpreted with caution. 01/03/2022 2:33 PM MECHANICAL AND AUTO BODY CAR CHECKER [facility] Performed By [facility] Pathologists, [facility] at [address] [address]. 01/03/2022 2:33 PM MECHANICAL AND AUTO BODY CAR CHECKER -[facility] Embedded Images 01/03/2022 2:33 PM MECHANICAL AND AUTO BODY CAR CHECKER [facility] Pathology/Cytology POLYP / Unknown 2021 10:37 AM MECHANICAL AND AUTO BODY CAR CHECKER 12/31/2021 1:10 PM MECHANICAL AND AUTO BODY CAR CHECKER Comment:Pre-op diagnosis: Abdominal pain, LLQ (left lower quadrant) [R10.32] Constipation, unspecified constipation type [K59.00] Malcom Kline MD LAB - PATHOLOGY/CYTO LOGY ORDERABLES [facility] [address] [place] [address] * ENDOSCOPY, COLON, DIAGNOSTIC (12/31/2021 10:08 AM MECHANICAL AND AUTO BODY CAR CHECKER) Report Endoscopy POC _ Patient Name: Dipika [...] for surveillance. Procedure Code(s): --- Professional --- 24883, Colonoscopy, flexible; with removal of tumor(s), polyp(s), or other lesion(s) by snare technique --- Technical --- 97076, Colonoscopy, flexible; with removal of tumor(s), polyp(s), or other lesion(s) by snare technique Diagnosis Code(s): --- Professional --- K64.4, Residual hemorrhoidal skin tags K63.5, Polyp of colon R10.12, Left upper quadrant pain --- Technical --- K64.4, Residual hemorrhoidal skin tags K63.5, Polyp of colon R10.12, Left upper quadrant pain CPT copyright 2019 [employer]. All rights reserved. The codes documented in this report are preliminary and upon parts delivery driver review may be revised to meet current compliance requirements. Dr. Alivia Kline MD Malcom Kline MD 12/31/2021 10:36:33 AM This report has been signed electronically. Number of Addenda: 0 Note Initiated On: 12/31/2021 10:08 AM Procedure Date: 12/31/2021 10:08:52 AM Scope Withdrawal Time: 0 hours 9 minutes 30 seconds [facility] 12/31/2021 10:0 8 AM MECHANICAL AND AUTO BODY CAR CHECKER Malcom Kline MD GI PROCEDURE ORDERAB LES [facility] * TREPONEMA PALLIDUM POS REFLX RPR (12/17/2021 12:05 PM CDT) T pallidum Antibody (TP-PA) Non Reactive Non Reactive [facility] INSURANCE BILL Blood BLOOD SPECIMEN / Unknown 12/17/2021 12:05 PM CDT 12/17/2021 Narrative Resulting Agency Comment Lab Testing performed at: [facility] [place] [id number] [facility] [id number] Aria Ch MD LAB - SEROLOGY ORDER ASHLEY Performing Organization Address City/[facility]/ZIP Co de Phone Number [facility] INSURANCE BILL [address] [place] [address] * TSH REFLEX FREE T4 (12/17/2021 12:05 PM CDT) Pathologist [facility] TSH 1.050 0.450 - 4.500 uIU/mL [facility] INSURANCE BILL Blood BLOOD SPECIMEN / Unknown 12/17/2021 12:05 PM CDT 12/17/2021 Narrative Resulting Agency Comment [facility] performed at: [facility] [address] [facility] [id number] Aria Ch MD LAB - CHEMISTRY ORDE RABLES Performing Organization Address City/[facility] Co de Phone Number [facility] INSURANCE BILL [address] [place] [address] * (ABNORMAL) SHERRIE STAINING PATTERNS REFLEXED (12/17/2021 [...] for this observation. Centriole Pattern NOT AVAILABLE [facility] INSURANCE BILL Comment:Result cannot be obt ained for this observation. Note [facility] INSURANCE BILL Comment: For more information about Hep-2 cell patterns use [employer], the official website for the International Consensus on Antinuclear Antibody (KETTY) Patterns (ICAP). A positive KETTY result may occur in healthy individuals (low titer) or be associated with a variety of diseases. See interpretation chart which is not all inclusive: . Pattern Antigen Detected Suggested Disease Association Homogeneous DNA(ds,ss), SLE - High titers Nucleosomes, Histones Drug-induced SLE Speckled Sm, PURSE FRAMER, SCL-70, SLE,MCTD,PSS (diffuse form), SS-A/SS-B Sjogrens Nucleolar SCL-70, PM-1/SCL High titers Scleroderma, PM/DM Centromere Centromere PSS (limited form) w/Crest syndrome variable Nuclear Dot Sp100,b36-[id number] Primary Biliary Cirrhosis Nuclear GP210, Primary Biliary Cirrhosis Membrane trevor A,B,C 12/17/2021 12:0 5 PM CDT 12/17/2021 Narrative Resulting Agency Comment Lab Testing performed at: [facility] [id number] Aria Ch MD LAB - PATHOLOGY/CYTO LOGY ORDERABLES Performing Organization Address City/[facility]/ZIP Co de Phone Number [facility] INSURANCE BILL [address] [place] [address] * IMMUNOFIXATION BLOOD (12/17/2021 12:05 PM CDT) [...] Resulting Agency Comment Lab Testing performed at: [employer] [facility] [id number] Aria Ch MD LAB - CHEMISTRY ORDE RABNANCY Performing Organization Address [facility]/ZIP Co de Phone Number [facility] INSURANCE BILL [address] [place] [address] * VITAMIN B12 FOLATE PANEL (12/17/2021 12:05 PM CDT) Pathologist [facility] Vitamin B12 888 232 - 1,245 pg/mL [facility] INSURANCE BILL Folate >20.0 >3.0 ng/mL [facility] INSURANCE BILL Comment: A serum folate concentration of less than 3.1 ng/mL is considered to represent clinical deficiency. Blood BLOOD SPECIMEN / Unknown 12/17/2021 12:05 PM CDT 12/17/2021 Narrative Resulting Agency Comment Lab Testing performed at: [facility] [address] [facility] [phone] Aria Ch MD LAB - CHEMISTRY TIKA JORDAN [facility] INSURANCE BILL [address] [place] [address] * (ABNORMAL) PROTEIN ELECTROPHORESIS BLOOD (12/17/2021 12:05 PM CDT) [facility] Protein Total 7.2 6.0 - 8.5 g/dL [facility] INSURANCE BILL Albumin 3.7 2.9 - 4.4 g/dL [facility] INSURANCE BILL Alpha-1 Globulin 0.2 0.0 - 0.4 g/dL [facility] INSURANCE BILL Tmwji-5-[id number] 1.1(H) 0.4 - 1.0 g/dL [facility] INSURANCE [...] scan will follow via computer, mail, or environmental services coordinator delivery. P E Interpretation, S [facility] INSURANCE [...] Resulting Agency Comment Lab Testing performed at: [facility] [address] [facility] [id number] Aria Ch MD LAB - CHEMISTRY TIKA JORDAN [facility] INSURANCE BILL [address] [place] [address] * CT ABDOMEN PELVIS W CONTRAST (12/15/2021 [...] MD on 12/15/2021 1:39 PM Matilde Poropat PHARMACIST CRITICAL CARE-HAIR MACHINE OPERATOR CT ORDERABLES * ISTAT CREATININE (12/15/2021 1:14 PM CDT) Sample iSTAT CIRO 01/18/2022 12:24 PM MECHANICAL AND AUTO BODY CAR CHECKER [facility] Creatinine POCT 0.8 0.5 - 1.3 mgdL 01/18/2022 12:24 PM MECHANICAL AND AUTO BODY CAR CHECKER [facility] Blood BLOOD SPECIMEN / Unknown 12/15/2021 1:14 PM CDT 01/18/2022 12:24 PM MECHANICAL AND AUTO BODY CAR CHECKER Raymond Nelson Jr., MD [facility] ORDERABLES [facility] [address] [address] * XR ABDOMEN KUB (12/01/2021 12:56 PM CDT) Anatomical Region Laterality Modality Abdomen Computed Radiogr aphy 12/01/2021 1:01 PM CDT Impressions 12/01/2021 1:01 PM CDT IMPRESSION: No radiographic evidence of acute intra-abdominal process. Moderate constipation. > Interpreting Provider: Farhan Diego MD on 12/01/2021 1:01 PM Narrative 12/01/2021 1:01 PM CDT PROCEDURE: XR ABDOMEN KUB, DATE/TIME OF EXAM: 12/01/2021 12:56 PM, LOCATION [facility] INDICATION: R10.32: Left lower quadrant pain K59.00: [...] DATE/TIME OF EXAM: 12/01/2021 12:56 PM, LOCATION [facility] INDICATION: R10.32: Left lower quadrant pain K59.00: [...] MD on 12/01/2021 1:01 PM Matilde Barker PHARMACIST CRITICAL CARE-HAIR MACHINE OPERATOR DIAGNOSTIC IMAG ING ORDERABLES * XR LUMBAR [...] DATE/TIME OF EXAM: 11/08/2021 8:04 AM, LOCATION [facility] INDICATION: M54.41: Lumbago with sciatica, right [...] DATE/TIME OF EXAM: 11/08/2021 8:04 AM, LOCATION [facility] INDICATION: M54.41: Lumbago with sciatica, right [...] LIPASE BLOOD (07/26/2020 6:55 AM CDT) Pathologist [facility] Lipase 29 8 - 78 U/L 07/26/2020 7:29 AM CDT [facility] Blood BLOOD SPECIMEN / Unknown Venipuncture / Unknown 07/26/2020 6:55 AM CDT 07/26/2020 7:07 AM CDT Librado Guan DO LAB - CHEMISTRY ORDERABLES [facility] AT [address] [address] * BASIC METABOLIC PANEL (CALCIUM TOTAL) (03/17/2017 4:00 AM MECHANICAL AND AUTO BODY CAR CHECKER) Only the most recent of8 resultswithin the time period is included. Pathologist [facility] BUN 10 7 - 26 mg/dL [facility] Creatinine 0.7 0.6 - 1.2 mg/dL [facility] Sodium 139 136 - 145 mmol/L [facility] Potassium 3.9 3.5 - 4.5 mmol/L [facility] Chloride 104 98 - 107 mmol/L [facility] CO2 26 22 - 29 mmol/L [facility] Glucose 111 70 - 115 mg/dL [facility] Calcium 9.0 8.4 - 10.2 mg/dL [facility] Comment:Confirmed by repeat analysis. Anion Gap 13 8 - 18 [facility] BUN/Creatinine Ratio 14 7 - 23 [facility] Osmolality Calculated 288 270 - 300 mOsm/kg [facility] eGFR >60 >60 mL/min/1.7 3 m2 [facility] Blood specimen (specimen) BLOOD SPECIMEN / Unknown 03/17/2017 4:00 AM MECHANICAL AND AUTO BODY CAR CHECKER 03/17/2017 4:09 AM MECHANICAL AND AUTO BODY CAR CHECKER Kenyon Panchal MD LAB - CHEMISTRY TIKA JORDAN [address] [phone] * (ABNORMAL) CBC W/O DIFFERENTIAL (03/17/2017 4:00 AM MECHANICAL AND AUTO BODY CAR CHECKER) Only the most recent of7 resultswithin the time period is included. WBC 4.1 3.5 - 10.5 10 3/uL [facility] RBC 3.66(L) 3.90 - 5.00 10 6/uL [facility] Hemoglobin 11.1(L) 12.0 - 15.5 g/dL [facility] Hematocrit 34.1(L) 35.0 - 45.0 % [facility] MCV 93.2 81.0 - 97.0 fL [facility] MCH 30.3 28.0 - 34.0 pg [facility] MCHC 32.6 32.0 - 36.0 g/dL [facility] Platelet Count 202 150 - 400 10 3/uL [facility] RDW-SD 43.5 36.0 - 50.0 fL [facility] RDW-CV 13.0 11.2 - 14.8 % [facility] MPV 10.2 9.3 - 12.8 fL [facility] Blood specimen (specimen) BLOOD SPECIMEN / Unknown 03/17/2017 4:00 AM MECHANICAL AND AUTO BODY CAR CHECKER 03/17/2017 4:09 AM MECHANICAL AND AUTO BODY CAR CHECKER Kenyon Panchal MD LAB - HEMATOLOGY ORD ERABLES [facility] [address] [phone] * (ABNORMAL) GLUCOSE ACCUCHECK (03/16/2017 8:12 PM MECHANICAL AND AUTO BODY CAR CHECKER) Only the most recent of36 resultswithin the time period is included. Pathologist [facility] Glucose, Fingerstick 129(H) 70-115mg/d L mg/dL [facility] (ZAHIDA) Comment:Nursery Nurse: CORY BENITO 03/16/2017 8:12 PM MECHANICAL AND AUTO BODY CAR CHECKER Kenyon Panchal MD LAB - CHEMISTRY ORDGene JORDAN [facility] (BEAKER) * VANCOMYCIN LEVEL TROUGH (03/16/2017 2:28 PM MECHANICAL AND AUTO BODY CAR CHECKER) Only the most recent of4 resultswithin the time period is included. Vancomycin Trough 14.7 10.0 - 20.0 mcg/mL [facility] Blood specimen (specimen) BLOOD SPECIMEN / Unknown 03/16/2017 2:28 PM MECHANICAL AND AUTO BODY CAR CHECKER 03/16/2017 2:37 PM MECHANICAL AND AUTO BODY CAR CHECKER Kenyon Panchal MD LAB - CHEMISTRY ORDE JULIAN Performing Organization Address City/[facility]/ZIP Co de Phone Number [address] [phone] * TYPE + SCREEN PANEL (03/15/2017 7:14 AM MECHANICAL AND AUTO BODY CAR CHECKER) Only the most recent of3 resultswithin the time period is included. Typem O POS [facility] Antibody Screen NEG [facility] Blood specimen (specimen) 03/15/2017 7:14 AM MECHANICAL AND AUTO BODY CAR CHECKER 03/15/2017 7:32 AM MECHANICAL AND AUTO BODY CAR CHECKER Kenyon Panchal MD LAB - BLOOD BANK ORD ERABLES Performing Organization Address [facility] Co de Phone Number [facility] [address] [place] [address] * ALBUMIN BLOOD (03/15/2017 3:07 AM MECHANICAL AND AUTO BODY CAR CHECKER) Albumin 3.6 3.4 - 5.0 g/dL [facility] Blood specimen (specimen) BLOOD SPECIMEN / Unknown 03/15/2017 3:07 AM MECHANICAL AND AUTO BODY CAR CHECKER 03/15/2017 3:12 AM MECHANICAL AND AUTO BODY CAR CHECKER Kenyon Panchal MD LAB - CHEMISTRY ORDE JULIAN Performing Organization Address [facility]/ZIP Co de Phone Number [address] [phone] * CULTURE FUNGUS OTHER+FUNGUS SMEAR (03/13/2017 8:16 AM MECHANICAL AND AUTO BODY CAR CHECKER) Only the most recent of5 resultswithin the time period is included. Culture Fungus-Other No Growth Fungi. [facility] Fungus Smear No Fungi seen. [facility] Fluid specimen (specimen) (Unspecified) 03/13/2017 8:16 AM MECHANICAL AND AUTO BODY CAR CHECKER 03/13/2017 1:59 PM MECHANICAL AND AUTO BODY CAR CHECKER Narrative [facility] - 04/10/2017 10:58 AM MECHANICAL AND AUTO BODY CAR CHECKER Post irrigation of right forearm. Specimen Type->Body Fluid Resulting Lab: [facility] [address] [place] [address] PH: [phone] Resulting Lab: [facility] [address] [place] [address] PH: [phone] Resulting Lab: [facility] [address] [place] [address] PH: [phone] Resulting Lab: [facility] [address] [place] [address] PH: [phone] Resulting Lab: [facility] [address] [place] [address] PH: [phone] Resulting Lab: [facility] [address] [place] [address] PH: [phone] Kenyon Panchal MD LAB - MICROBIOLOGY O RDERABLES [address] [phone] * CULTURE AEROBIC (03/13/2017 8:16 AM MECHANICAL AND AUTO BODY CAR CHECKER) Only the most recent of9 resultswithin the time period is included. Culture Aerobic No Growth [facility] Gram Stain light White Blood Cells [facility] Gram Stain No Organism Seen [facility] Fluid specimen (specimen) 03/13/2017 8:16 AM MECHANICAL AND AUTO BODY CAR CHECKER 03/13/2017 9:13 AM MECHANICAL AND AUTO BODY CAR CHECKER Narrative [facility] - 03/17/2017 8:17 AM MECHANICAL AND AUTO BODY CAR CHECKER Post irrigation of right forearm. Specimen Type->Body Fluid Resulting Lab: [facility] [address] [place] [address] PH: [phone] Resulting Lab: [facility] [address] [place] [address] PH: [phone] Kenyon Panchal MD LAB - MICROBIOLOGY O RDSEABLES Performing Organization Address City/[facility]/ZIP Co de Phone Number [facility] [address] [place] [address], [facility] [phone] * CULTURE AFB+SMEAR (03/13/2017 8:16 AM MECHANICAL AND AUTO BODY CAR CHECKER) Only the most recent of5 resultswithin the time period is included. Culture Acid Fast Bacilli No growth of Acid Fast bacilli [facility] AFB Smear No acid fast bacilli seen [facility] Fluid specimen (specimen) 03/13/2017 8:16 AM MECHANICAL AND AUTO BODY CAR CHECKER 03/13/2017 9:13 AM MECHANICAL AND AUTO BODY CAR CHECKER Narrative [facility] - 04/24/2017 8:47 AM MECHANICAL AND AUTO BODY CAR CHECKER Post irrigation of right forearm. Specimen Type->Body Fluid Resulting Lab: [facility] [address] [place] [address] PH: [phone] Resulting Lab: [facility] [address] [place] [address] PH: [phone] Resulting Lab: [facility] [address] [place] [address] PH: [phone] Resulting Lab: [facility] [address] [place] [address] PH: [phone] Resulting Lab: [facility] [address] [place] [address] PH: [phone] Resulting Lab: [facility] [address] [place] [address] PH: [phone] Kenyon Panchal MD LAB - MICROBIOLOGY O RDERARANGEL [facility] [address] [place] [address], [facility] [phone] * CULTURE ANAEROBE (03/13/2017 8:16 AM MECHANICAL AND AUTO BODY CAR CHECKER) Only the most recent of7 resultswithin the time period is included. Culture Anaerobic No Growth Anaerobes. [facility] Fluid specimen (specimen) 03/13/2017 8:16 AM MECHANICAL AND AUTO BODY CAR CHECKER 03/13/2017 9:13 AM MECHANICAL AND AUTO BODY CAR CHECKER Narrative [facility] - 03/20/2017 12:25 PM MECHANICAL AND AUTO BODY CAR CHECKER Post irrigation of right forearm. Specimen Type->Body Fluid Resulting Lab: [facility] [address] [place] [address] PH: [phone] Kenyon Panchal MD LAB - MICROBIOLOGY O LAWANDA Performing Organization Address City/[facility]/[place] [address], [facility] [phone] * CULTURE BLOOD (03/13/2017 3:06 AM MECHANICAL AND AUTO BODY CAR CHECKER) Only the most recent of2 resultswithin the time period is included. Culture Blood No Growth at 5 days [facility] Blood specimen (specimen) (Venous, Peripheral) 03/13/2017 3:06 AM MECHANICAL AND AUTO BODY CAR CHECKER 03/13/2017 3:15 AM MECHANICAL AND AUTO BODY CAR CHECKER [facility] - 03/18/2017 7:30 AM MECHANICAL AND AUTO BODY CAR CHECKER Resulting Lab: [facility] [address] [place] [address] PH: [phone] Kenyon Panchal MD LAB - MICROBIOLOGY O LAWANDA Performing Organization Address [facility] [place] [address], [facility] [phone] * (ABNORMAL) CULTURE TISSUE+GRAM STAIN (03/10/2017 12:49 PM MECHANICAL AND AUTO BODY CAR CHECKER) Culture Tissue STAPHYLOCOCCUS EPIDERMIDIS(A) [facility] Comment:Light Growth Staphyl ococcus Epidermidis Gram Stain Moderate Red Blood Cells [facility] Gram Stain Rare White Blood Cells [facility] Gram Stain No Organism Seen [facility] Tissue TISSUE SPECIMEN / Unknown 03/10/2017 12:49 PM MECHANICAL AND AUTO BODY CAR CHECKER 03/10/2017 2:57 PM MECHANICAL AND AUTO BODY CAR CHECKER [facility] - 03/13/2017 12:19 PM MECHANICAL AND AUTO BODY CAR CHECKER Specimen Type->Tissue Resulting Lab: [facility] [address] [place] [address] PH: [phone] Organism Antibiotic Method Susceptibility Staphylococcus epidermidis Clindamycin SUSCEPTIBILITY >=4: Resistant Staphylococcus epidermidis Erythromycin SUSCEPTIBILITY >=8: Resistant Staphylococcus epidermidis Gentamicin SUSCEPTIBILITY <=0.5: Sensitive Staphylococcus epidermidis Levofloxacin SUSCEPTIBILITY <=0.12: Sensitive Staphylococcus epidermidis Oxacillin SUSCEPTIBILITY >=4: Resistant Staphylococcus epidermidis Trimethoprim- sulfamethox azole SUSCEPTIBILITY 160: Resistant Staphylococcus epidermidis Vancomycin SUSCEPTIBILITY 1: Sensitive Kenyon Panchal MD LAB - MICROBIOLOGY O RDERABLES Performing Organization Address City/[facility]/ZIP Co de Phone Number [address] [phone] * HCG URINE QUALITATIVE (03/10/2017 4:04 AM MECHANICAL AND AUTO BODY CAR CHECKER) Test Urine Negative Negative [facility] Urine specimen (specimen) 03/10/2017 4:04 AM MECHANICAL AND AUTO BODY CAR CHECKER 03/10/2017 4:21 AM MECHANICAL AND AUTO BODY CAR CHECKER Kenyon Panchal MD LAB - URINALYSIS ORD ERABLES Performing Organization Address [facility] de Phone Number [address] [phone] * HEMOGLOBIN A1C (03/09/2017 6:08 PM MECHANICAL AND AUTO BODY CAR CHECKER) Hemoglobin A1c 5.9 4.4 - 6.3 % [facility] Estimated Average Glucose 123 mg/dL [facility] Comment: HbA1c Interpretation: Treatment target values recommended by ADA and other clinical organizations should be used to evaluate metabolic control in patients. Treatment Target Values: Normal : < 5.7% Pre-diabetes: 5.7-6.4% Diabetes: Equal to or greater than 6.5% Reference: [place] [employer] Standards of Care in Diabetes -2014 In patients 70 years and older consider HbA1c target range of 7.0-7.5% Reference: Diabetes Mellitus in Older People: Position Statement on behalf of the International Association of Gerontology and Geriatrics (IAGG), the Diabetes Working Republican for Older People (EDWPOP), and the International Task Force of Experts in Diabetes. Kofi Marie et al. J [employer]. 2012 Test results diagnostic [...] BLOOD SPECIMEN / Unknown 03/09/2017 6:08 PM MECHANICAL AND AUTO BODY CAR CHECKER 03/09/2017 6:26 PM MECHANICAL AND AUTO BODY CAR CHECKER Kenyon Panchal MD LAB - CHEMISTRY TIKA JORDAN Performing Organization Address City/[facility]/ZIP Co de Phone Number [address] [phone] * HCG BETA BLOOD QUANTITATIVE (02/17/2017 4:10 AM MECHANICAL AND AUTO BODY CAR CHECKER) Beta-hCG Total Quantitative <2 <5 mIU/mL [facility] Comment: HCG Numeric Result Interpretation: Non- Females: < 5 mIU/mL Post-Menopausal Females: < 7 mIU/mL Blood specimen (specimen) BLOOD SPECIMEN / Unknown 02/17/2017 4:10 AM MECHANICAL AND AUTO BODY CAR CHECKER 02/17/2017 4:25 AM MECHANICAL AND AUTO BODY CAR CHECKER Kenyon Panchal MD LAB - CHEMISTRY TIKA JORDAN Performing Organization Address [facility] Co de Phone Number [address] [phone] * (ABNORMAL) DIFFERENTIAL MANUAL (02/16/2017 6:55 PM MECHANICAL AND AUTO BODY CAR CHECKER) WBC (corrected for NRBC) 12.6 10 3/uL [facility] Total Cell Count 100 [facility] Neutrophils Absolute Manual 10.96(H) 1.60 - 7.00 10 3/uL [facility] Comment:(BANDS+SEGS) x WBC = NEUT # (ANC) Lymphocyte Absolute Manual 1.13 0.80 - 2.90 10 3/uL [facility] Monocytes Absolute Manual 0.50 0.14 - 0.66 10 3/uL [facility] Band % Manual 4 0 - 10 % [facility] Neutrophil % Manual 83(H) 30 - 60 % [facility] Lymphocyte % Manual 9(L) 20 - 45 % [facility] Monocytes % Manual 4 2 - 10 % [facility] Platelet Estimate Adequate Adequate [facility] Anisocytosis Few(A) None [facility] Poikilocytes Few(A) None [facility] Blood specimen (specimen) BLOOD SPECIMEN / Unknown 02/16/2017 6:55 PM MECHANICAL AND AUTO BODY CAR CHECKER 02/16/2017 6:56 PM MECHANICAL AND AUTO BODY CAR CHECKER Kenyon Panchal MD LAB - HEMATOLOGY ORD ERABLES Performing Organization Address City/[facility]/ZIP Co de Phone Number [facility] [address] [phone] * CARDIAC RHYTHM STRIP ORDER (02/09/2017 1:34 AM MECHANICAL AND AUTO BODY CAR CHECKER) Narrative 02/09/2017 1:34 AM MECHANICAL AND AUTO BODY CAR CHECKER Ordered by an unspecified provider. Scanned Document CARDIAC SERVICES ORD ERABLES * HCG URINE QUALITATIVE - POCT (IP) BEAKER (02/06/2017 7:42 AM MECHANICAL AND AUTO BODY CAR CHECKER) HCG Qual Urine Negative Negative [facility] POCT TESTING QC Verified Yes Yes [facility] POC T TESTING Urine URINE / Unknown 02/06/2017 7 :42 AM MECHANICAL AND AUTO BODY CAR CHECKER Ninoska Woodall MD LAB - POINT OF CARE ORDERABLES Performing Organization Address City/[facility] Co de Phone Number [facility] POCT TESTING [address] [phone] * GROSS + MICRO EXAM (08/31/1994 3:26 PM CDT) Result CASE NUMBER [id number] Comment: ORDERING PHYSICIAN ARA KEBEDE SPECIMEN TYPE [...] abnormalities on cut section. Samples are submitted. ([facility])clw BLOCKS A - Umbilical cord / membranes [...] LAB - PATHOLOGY/C YTOLOGY ORDERABLES Care Teams Nurse'S Assistant Relationship Specialty [place] [address] [place] [address] PCP - General Family Medicine 02/09/22 Meme Samuel, RN Registered Nurse 02/06/17 Adelina Trinidad DO [address] [facility] [address] [place] [id number] Rheumatology 07/07/22
== END 2024-05-02 07:01 | disposition home or self-care (01) ==
LOC: ANHLAB 05-03 08:09
PROVIDERS: PCP Emergency Medicine; Visit Provider Plastic Surgery
DX: L90.5 Scar conditions and fibrosis of skin (principal); Z98.890 Other specified postprocedural states
CPT/HCPCS: 88305

== ENCOUNTER 2024-05-02 07:31 | Day surgery (SDC) | payer OTHER, SELFPAY ==
[2024-04-08 13:58] VITALS: BMI 35.0
[2024-04-22 12:31] VITALS: BMI 33.5
--- NOTE | 2024-05-02 07:09 | P.HP_ITS ---
History of Present Illness History of Present Illness Chief complaint: Scar Irritation, HX Right Carpal Tunnel Release Narrative: Patient seen and examined in pre-operative holding area. No interval change in medical history or symptoms. Patient recalls previous discussion of benefits and alternatives to procedure. Continues to desire to proceed with right carpal tunnel scar revision possible carpal tunnel release possible local flap. Reviewed procedure, post-op expectations and risks including but not limited to bleeding, infection, injury to tendon/nerve/vessel, decreased hand function, stiffness, RSD, no change or worsening of symptoms. I discussed the possible use of assistants and their participation in the case. Patient stated understanding and signed the consent form wishing to proceed. Review of Systems Review of Systems: All systems reviewed & are unremarkable except as noted in HPI and below PMFSH Past Medical History Medical History (Updated 04/02/24 @ 11:29 by Kashif Steiner MD) Smoking Thrush Preoperative clearance Tardive dyskinesia CTS (carpal tunnel syndrome) PTSD (post-traumatic stress disorder) Bipolar disorder Fibromyalgia Anxiety Peripheral neuropathic pain Psychiatric diagnosis Surgical History Surgical History (Updated 04/02/24 @ 11:29 by Kashif Steiner MD) S/P total hip arthroplasty Family History Family History Unknown Hypertension Depression Heart disease Diabetes mellitus Cerebrovascular accident Neuropathy Arthritis Other Peripheral neuropathic pain Social History Social History (Updated 04/02/24 @ 11:06 by Saadia Green MA) Smoking packs per day: 0.25 Smoking cigarettes per day: 5.0 Years smoked: 20 Smoking pack-years: 5.00 Smoking status: Former smoker Tobacco type: cigarettes Smoking end date: 08/04/23 Alcohol intake: never Substance use: former Substance use type: marijuana Last use: 09/04/23 Do You Feel Safe in your Home?: Yes Lack of Transportation: No Lack of Food: Never True Current Housing: I Do Not Have Housing Concerned About Future Housing: No Difficulty Paying Gas/Electric Bills: YES Difficulty Paying for Meds: No Currently Unemployed: No Education: Associate Degree Difficulty w/ Childcare or Family Care: No Living arrangements: with family Additional living arrangements comments: DAUGHTER Occupation/Education: unemployed Gender identity (if verbalized by the patient): Female Spiritual care concerns: No Meds Home Medications and Allergies Home Medications ?Medication ?Instructions ?Recorded ?Confirmed ?Type multivitamin 1 tablet PO DAILY 08/22/23 04/22/24 History blood sugar diagnostic ([facility] ea 09/21/23 03/26/24 Rx Verio test strips) blood-glucose meter ([facility] #1 ea 09/21/23 03/26/24 Rx Verio Reflect Meter) lancets 33 gauge ([facility] #100 ea 09/21/23 03/26/24 Rx Plus Lancet) rosuvastatin 10 mg tablet 10 mg PO DAILY #90 tabs 09/21/23 04/22/24 Rx pregabalin 100 mg capsule 100 mg PO TID #90 caps 10/21/23 04/22/24 Rx omeprazole 40 mg capsule,delayed 40 mg PO DAILY #90 caps 01/24/24 04/22/24 Rx release hydroxyzine pamoate 25 mg capsule 50 mg (2 x 25 mg) PO QPM #180 caps 01/29/24 04/22/24 Rx losartan 100 1 tablet PO QAM #90 tabs 01/29/24 04/22/24 Rx mg-hydrochlorothiazide 12.5 mg tablet metformin 1,000 mg tablet 1,000 mg PO QAM #90 tabs 01/29/24 04/22/24 Rx propranolol 20 mg tablet 20 mg PO DAILY #90 tabs 01/29/24 04/22/24 Rx valbenazine 40 mg capsule 40 mg PO DAILY #90 caps 03/26/24 04/22/24 Rx (Ingrezza) albuterol sulfate 90 mcg/actuation 1 puff inhalation QID PRN 04/22/24 04/22/24 History aerosol inhaler shortness of breath or wheezing cholecalciferol (vitamin D3) 25 25 mcg PO DAILY 04/22/24 04/22/24 History mcg (1,000 unit) capsule (Vitamin D3) cyclobenzaprine 10 mg tablet 10 mg PO TID PRN muscle spasm 04/22/24 04/22/24 History divalproex 500 mg tablet,delayed 500 mg PO DIRECTED 04/22/24 04/22/24 History release duloxetine 60 mg capsule,delayed 60 mg PO DAILY 04/22/24 04/22/24 History release liraglutide 0.6 mg/0.1 mL (18 mg/3 0.6 mg subcut DIRECTED 04/22/24 04/22/24 History mL) subcutaneous pen injector meloxicam 7.5 mg tablet 7.5 mg PO BID PRN pain (scale 04/22/24 04/22/24 History score 4-6) oxycodone-acetaminophen 5 mg-325 1 tablet PO Q6H PRN pain #40 tabs 04/25/24 Rx mg tablet (Percocet) fluticasone propionate 50 1 spray intranasal BID #48 grams 04/29/24 Rx mcg/actuation nasal spray,suspension (Flonase Allergy Relief) methylprednisolone 4 mg tablets in See Rx Instructions PO PER PKG DIR 04/29/24 Rx a dose pack (Medrol (French)) #21 ea Allergies Allergy/AdvReac Type Severity Reaction Status Date / Time No Known Allergies Allergy Verified 04/22/24 12:26 Exam Narrative: unchanged Assessment and Plan Assessment and plan (1) Scar irritation: Code(s): L90.5 - Scar conditions and fibrosis of skin Status: Acute Assessment and Plan: cont as above
--- NOTE | 2024-05-02 07:09 | W.PM.PROC2 ---
Procedure Note - Detailed Date of Procedure 05/02/24 Pre-op Diagnosis Scar Irritation, HX Right Carpal Tunnel Release and post-op infection Post-op Diagnosis Same Procedure Performed excision right carpal tunnel scar, external and internal median neurolysis, hypothenar fat flap and adjacent tissue transfer. Surgeon Kashif Steiner MD Software Quality Specialist august herrera pa-c Anesthesia MAC Description of Procedure INFORMED CONSENT: The patient was seen and examined and marked in the pre-op area.? The patient signed the consent form. PROCEDURE IN DETAIL:The patient taken back to OR on the stretcher in supine position. Time out performed with anesthesia, surgeon and staff agreeing on patient's name site and surgery to be performed SCDs were placed on the lower extremities and inflated. A tourniquet was placed on {right} upper extremity and antibiotics given IV After anesthesia administered sedation I injected {10}cc 1%lido with epi and 0.5% marcaine plain at the operative site The?{right upper extremity/}?was prepped and draped in sterile fashion the??{right upper extremity} was? exsanguinated with Esmarch bandage and tourniquet inflated to 250mmHg I proceeded with making an elliptical incision around the thickened irregular scar on the patient's right palm extending onto her volar forearm through skin and dermis with a 15 blade scalpel. Littler scissor spreading through subcutaneous tissue. The median nerve was identified proximally outside the initial zone of injury. I proceeded with anterograde dissection using Littler scissors and 15 blade to continue excision of the significant amount of subcutaneous scar tissue that extended around the median nerve and down into the flexor tendon sheath. It was noted that certain areas of this scar involved the epineurial. With this neuro lysis the epineurial was partially excised to reveal healthy appearing fascicles within the median nerve. This was noted only for a short distance just distal to the wrist flexion crease. I proceeded with external neurolysis of the median nerve entrapped in this thickened scar tissue to the mid palm where it appeared to be somewhat sclerotic but intact. I was not able to fully identify the thenar branch and no further attempted dissection was made to reduce risk of injury. I irrigated with normal saline. In order to help improve coverage of the nerve and given protection especially over the area of epineurial exposure I created a hypothenar fat flap with 15 blade scalpel. Using 4-0 Monocryl I was able to advance this fat flap to cover this middle portion of the median nerve and secured to the radial side of the transverse carpal ligament. Next I proceeded with fashioning a Z-plasty at the volar wrist flexion crease to prevent a direct perpendicular scar. Fifteen blade was used to create this Z-plasty through skin and dermis. 4-0 chromic was used for closure. A dressing of xeroform, 4x4, ale, and a volar splint was applied for patient safety, security, and comfort and secured with an sherry bandage after the tourniquet was let down noting the hand was warm and well perfused. The patient was then awaken from anesthesia and transferred to the recovery room in stable condition.? Complications - none though it should be noted the patient's blood pressure did reach 200 systolic during the procedure resulting in some tourniquet bleed through but was controlled by anesthesia. EBL- 0cc Disposition - home in stable conditions august herrera pa-c was essential for positioning, retraction, closure and dressing placement [facility] Billing Surgery - Charge Forward: Surgery Billing ([id number],22 same codes for august farley )
--- OUTSIDE RECORDS SUMMARY | 2024-05-02 07:55 | XMS_ITS | Referral Summary ---
Author Organization [facility] Address [address] [place] [address] Care Team Providers Care Instrument Panel Assembler Name Role Phone Unknown, Notinfile Primary Care [...] (10/20/2020): Added automatically from request for surgery [id number] Back pain with left-sided sciatica 10/19/2020 Diverticulosis 09/13/2020 Overview (09/13/2020): Added automatically from request for surgery [id number] Family history of colon cancer in mother 021 Overview (09/13/2020): Added automatically from request for surgery [id number] Hx of colonic polyps 09/13/2020 Overview (09/13/2020): Added automatically from request for surgery [id number] Diverticulosis of colon 09/11/2020 Assessment & Plan (09/11/2020 1:48 PM CDT): Colonoscopy and then recap in office Carpal tunnel syndrome of left wrist 06/30/2020 Tardive dyskinesia 04/28/2020 Complex dental caries 11/28/2019 Overview (11/28/2019): Added automatically from request for surgery [id number] Essential hypertension, malignant 11/28/2019 Overview (11/28/2019): Added automatically from request for surgery [id number] Breath, shortness 11/28/2019 Overview (11/28/2019): Added automatically from request for surgery [id number] Severe diabetes mellitus 11/28/2019 Overview (11/28/2019): Added automatically from request for surgery [id number] Posttraumatic stress disorder 11/28/2019 Overview (11/28/2019): Added automatically from request for surgery [id number] Anxiety 11/28/2019 Overview (11/28/2019): Added automatically from request for surgery [id number] Infection following a procedure, subsequent enco unter 03/10/2017 Pyogenic arthritis 02/16/2017 Lumbar radiculopathy 01/23/2017 Other lesions of median nerve, right upper limb 01/06/2017 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 01/05/2017 Cervicalgia 05/13/2016 Carpal tunnel syndrome of right wrist 05/11/2016 Fibromyalgia 01/13/2016 Anxiety disorder 07/10/2015 Meralgia paresthetica 03/05/2015 Overview (12/28/2020): bilateral Overview: bilateral Diabetic peripheral neuropathy 03/04/2015 Low back pain with sciatica 03/04/2015 Cervical [...] on file Legal Sex 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 Current interpretive data was last revised 2018. Testing performed by: [address] [address] Creatinine Ur 182.5 mg/dL [facility]) Comment: Interpretive Data No reference range established. Current interpretive data was last revised 2018. Testing performed by: [address], [address] Albumin Creatinine Ratio, Ur 17 1 - 29 mg/g [facility] ([place]) Comment:Testing performed by : [facility], [address] [facility], [address] Urine 11/17/2020 11:0 0 AM CDT 11/17/2020 2:34 PM CDT Carla Harrell MILLED LUMBER GRADER LAB URINE ORDERABLES Final R esult Performing Organization Address [facility] de Phone Number [facility] [address] [facility] [place] [address] * (ABNORMAL) Hemoglobin A1c (11/17/2020 10:48 AM [...] and children were not included. (Diabetes Care 31:3966-1202, 2008). The eAG is not equivalent to a fasting glucose. Blood 11/17/2020 10:4 8 AM CDT 11/17/2020 11:20 AM CDT Carla Harrell NP LAB BLOOD ORDERABLES Final R esult Performing Organization Address [facility] Co de Phone Number [facility] ([place]) [address] [facility] [place] [address] * (ABNORMAL) Lipid panel (11/17/2020 10:48 AM [...] on 2017. Triglycerides 234(H) <=149 mg/dL [facility] Comment: Interpretive Data Ages < or [...] on 2017. HDL 35(L) >=40 mg/dL [facility] Comment: Interpretive Data Ages < or [...] 2017. LDL, calculated 92 <=129 mg/dL [facility] Comment: Interpretive Data Ages < or [...] 2017. Non-HDL Cholesterol 139 mg/dL [facility] ([place]) Comment: Interpretive Data Ages < or = [...] on 2017. Chol/HDL ratio 5 [facility] ([place]) Blood 11/17/2020 10:4 8 AM CDT 11/17/2020 11:20 AM CDT Carla Harrell MILLED LUMBER GRADER LAB BLOOD ORDERABLES Final R esult [facility] ([place]) [address] [facility] Department [place] [address] * COLONOSCOPY (10/22/2020 10:34 AM CDT) Anatomical Region Laterality Modality Other Narrative Procedure Note Yunior Barber MD - 10/22/2020 10:34 AM CDT [facility] Patient Name: Dipika Tran Procedure Date: 10/22/2020 10:34 AM Date of : 1970 Admit Type: Outpatient Age: 50 Gender: Female Attending MD: Yunior Barber M.D. Room: [facility] ENDOSCOPY ROOM 2 Note Status: Finalized Patient [...] scope was passed under direct vision. TheColonoscope [id number] was introduced through the anus and advanced [...] 10:34 AM Procedure Code(s): --- Professional --- 13356, Colonoscopy, flexible; diagnostic, including collection of specimen(s) by brushing or washing, when performed (separateprocedure) Diagnosis Code(s): --- Professional --- K57.30, Diverticulosis of large intestine without perforation orabscess without bleeding K64.9, Unspecified hemorrhoids CPT copyright 2019 [employer]. All rights reserved. The codes documented in this report are preliminary and upon trim attacher reviewmay be revised to meet current compliance requirements. Recognized by the [place] [employer] for promoting quality in endoscopy Yunior Barber MD ENDOSCOPY PROCEDURES Final Re sult from Last 3 Months or Most Recently Relevant to Health Maintenance Insurance [facility] Advance Directives For more information, please contact: [phone] * Full Code (Latest Code Status on File) Date Activated Date Inactivated Comments 11/20/2020 10:55 AM 11/20/2020 4:37 PM * Full Code Date Activated Date Inactivated Comments 10/22/2020 10:43 AM 10/22/2020 4:47 PM * Full Code Date Activated Date Inactivated Comments 10/22/2020 10:43 AM 10/22/2020 10:43 AM * Full Code Date Activated Date Inactivated Comments 10/20/2020 10:09 AM 10/20/2020 2:59 PM Care Teams Instrument Panel Assembler Relationship Specialty Start Date End Date Unknown, Notinfile PCP - General 04/03/23
--- OUTSIDE RECORDS SUMMARY | 2024-05-02 07:55 | XMS_ITS | Continuity of Care Document ---
Author Organization [facility] Address [address] [place] [address] [place] [address] Phone Care Team Providers Care Space Physicist Name Role Phone Thong Persaud MD Unavailable Unavailable Allergies, Adverse Reactions, Alerts Substance Reaction Status Criticality meloxicam Active No Information Medications Medication Instructions Dosage Effective Dates (start - stop) Status Comments [place] 5 mg-325 mg tablet take 1 tablet [...] route every day 100 MG - Active Ventolin HFA 90 mcg/actuation aerosol inhaler inhale 2 puff by inhalation route every 4 - 6 hours as needed - Active Zocor 40 mg tablet take 1 tablet by oral route every day in the evening 40 MG - Active propranolol 40 mg tablet take 1 tablet by oral route 2 times every day 40 MG - Active metformin 1,000 mg tablet take [...] Providers Copied on Encounter OFFICE/OUTPA TIENT VISIT, [facility], [address], [place], [place], [address], [place] tel:[phone] [facility] chronic pain (chief complaint) asthma1 (chief complaint) HTN (chief complaint) AsthmaEssential (primary) hypertensionChronic pain syndrome 6 Hung Benito. [address], [place], [place], [address] , [place]. tel:[phone] Referring Provider: Asia Gutiérrez [address], [place], [place], [address]. tel:[phone] OFFICE/OUTPA TIENT VISIT, [facility], [address], [place], [place], [address], [place] tel:[phone] [facility] asthma1 (chief complaint) alcohol (chief complaint) back apin (chief complaint) arm numnbess1 (chief complaint) AsthmaAlcohol dependence, uncomplicatedChroni c pain syndromeNeuropathy 6 Hung Benito. [address], [place], [place], [address] , [place]. tel:[phone] Referring Provider: Asia Guti[address]rez [address], [place], [place], [address]. tel:[phone] OFFICE/OUTPA TIENT VISIT, [facility], [address], [place], [place], [address], [place] tel:[phone] [facility] HTN (chief complaint) back pain1 (chief complaint) asthma (chief complaint) HLP (chief complaint) AsthmaLumbagoEssent ial (primary) hypertensionHyperli pidemia 6 Hung Benito. [address], [place], [place], [address] , [place]. tel:[phone] Referring Provider: Asia Gutiérrez [address], [place], [place], [address]. tel:[phone] OFFICE/OUTPA TIENT VISIT, [facility], [address], [place], [place], [address], [place] tel:[phone] [facility] headache1 (chief complaint) eye (chief complaint) back pain1 (chief complaint) HeadacheLumbagoEsse ntial (primary) hypertensionConjunc tivitis 6 Hung Benito. [address], [place], [place], [address] , [place]. tel:[phone] Referring Provider: Asia Gutiérrez [address], [place], [place], [address]. tel:[phone] OFFICE/OUTPA TIENT VISIT, [facility], [address], [place], [place], [address], [place] tel:[phone] [facility] HTN (chief complaint) back pain (chief complaint) lumbago1 (chief complaint) DM (chief complaint) HyperlipidemiaEssen tial (primary) hypertensionHeadach eLumbago 6 Hung Benito. [address], [place], [place], [address] , [place]. tel:[phone] Referring Provider: Asia Gutiérrez [address], [place], [place], [address]. tel:[phone] OFFICE/OUTPA TIENT VISIT, [facility], [address], [place], [place], [address], [place] tel:[phone] [facility] HTN (chief complaint) back pain1 (chief complaint) anxiety1 (chief complaint) Essential (primary) hypertensionChronic pain syndromeDepressionO besity 6 Hung Benito. [address], [place], [place], [address] , [place]. [phone] Referring Provider: Asia Gutiérrez [address], [place], [place], [address]. tel:[phone] OFFICE/OUTPA TIENT VISIT, [facility], [address], [place], [place], [address], [place] tel:[phone] [facility] chronic pain (chief complaint) HTN (chief complaint) HLP (chief complaint) anxiety1 (chief complaint) Chronic pain syndromeHyperlipide miaEssential (primary) hypertensionDepress ion 6 Hung Benito. [address], [place], [place], [address] , [place]. [phone] Referring Provider: Asia Gutiérrez [facility] A, [place], [place], [address]. tel:[phone] OFFICE/OUTPA TIENT VISIT, [facility], [address], [place], [place], [address], [place] tel:[phone] [facility] COPD1 (chief complaint) cough1 (chief complaint) preDM (chief complaint) HLP (chief complaint) bipolar (chief complaint) Metabolic syndromeHyperlipide miaAcute bronchitisChronic pain syndrome 6 Hung Benito. [address], [facility] A, [place], [place], [address] , [place]. [phone] Referring Provider: Asia Gutiérrez [facility] A, [place], [place], [address]. tel:[phone] PREV VISIT, NEW, AGE 40-64 [facility], [address] [place], [address], [place] tel:[phone] [facility] PHysical (chief complaint) Encounter for general adult medical exam w abnormal findingsType 2 diabetes mellitus without complicationsEssent ial (primary) hypertensionHyperli pidemia 6 Hung Benito. [address], [facility] A, [place], [place], [address] , [place]. [phone] Referring Provider: Asia Gutiérrez [facility] A, [place], [place], [address]. tel:[phone] Family History Family Member Type Diagnosis Age At Onset Brother Problem (finding) Alive and well Father Problem (finding) Leukemia Mother Problem (finding) colon CA 47 Payers Payer name Insurance type Covered alliance party ID Authorelizabeth tion(s) No Information Social [...] pain. Pt is getting injection from Dr. oPllock now. Pt denies any worsening pain, Pt [...] Mental Status Date Cognitive Assessment Orientation - [place] ed to time, place, person, situation.
--- OUTSIDE RECORDS SUMMARY | 2024-05-02 07:55 | XMS_ITS | Clinical Summary ---
Author Organization [facility] Address [address] [place] [address] Care Team Providers Care Switchboard Troubleshooter Name Role Phone Unknown, Notinfile Primary Care [...] (10/20/2020): Added automatically from request for surgery [id number] Back pain with left-sided sciatica 10/19/2020 Diverticulosis 09/13/2020 Overview (09/13/2020): Added automatically from request for surgery [id number] Family history of colon cancer in mother 021 Overview (09/13/2020): Added automatically from request for surgery [id number] Hx of colonic polyps 09/13/2020 Overview (09/13/2020): Added automatically from request for surgery [id number] Diverticulosis of colon 09/11/2020 Assessment & Plan (09/11/2020 1:48 PM CDT): Colonoscopy and then recap in office Carpal tunnel syndrome of left wrist 06/30/2020 Tardive dyskinesia 04/28/2020 Complex dental caries 11/28/2019 Overview (11/28/2019): Added automatically from request for surgery [id number] Essential hypertension, malignant 11/28/2019 Overview (11/28/2019): Added automatically from request for surgery [id number] Breath, shortness 11/28/2019 Overview (11/28/2019): Added automatically from request for surgery [id number] Severe diabetes mellitus 11/28/2019 Overview (11/28/2019): Added automatically from request for surgery [id number] Posttraumatic stress disorder 11/28/2019 Overview (11/28/2019): Added automatically from request for surgery [id number] Anxiety 11/28/2019 Overview (11/28/2019): Added automatically from request for surgery [id number] Infection following a procedure, subsequent enco unter [...] Depression Diabetes mellitus (HCC) Dxd 2001 Neuropathy Bipolar 1 disorder (HCC) Schizophrenia (HCC) History of section 5 C- Sections Obesity [...] on file Legal Sex 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 Gender Identity Not on file Sexual Orientation [...] of 2) 01/15/2018 Hemoglobin A1C 05/17/2021 11/17/2020, 02/2 04/2020, 03/09/2017 Pneumococcal vaccine <65 (3 of 3 - PCV20 or PCV21) 08/17/2021 08/17/2016, 08/29/2013 Albumin Creatinine Ratio, Urine 11/17/2021 Lipid Panel 11/17/2021 11/17/2020, 02/2 04/2020, 07/21/2012, Additional history exists DTaP/Tdap/Td Vaccine (2 - Td or Tdap) 11/22/2021 11/23/2011 Breast Cancer Screening-Mammogram 07/03/2022 07/03/2021, 02/20/2020, 05/13/2013, Additional history exists eGFR 07/03/2022 07/03/2021, 10/22, 04/14/2020, Additional history exists Influenza Vaccine (#1) 2023 9, 04/16/2018, 11/13/2017, Additional history exists Colon Cancer Screening-Colonoscopy 10/22/2030 10/22/2020 Colon Cancer Screening-CT Colonography Discontinued 10/22/2020 Colon [...] PM CDT 07/03/2021 4:43 PM CDT Shawn Hernandez NP LAB BLOOD ORDERABLES Final Result [facility] [place]) 1 [facility] Department [place] [address] * Screening Mammogram Bilateral W [...] 11:00 AM CDT) Albumin Ur 30.7 mg/L [facility] ([place]) Comment: Interpretive Data No reference range established. Current interpretive data was last revised 2018. Testing performed by: [facility], [address] [place] [address]., [id number] Creatinine Ur 182.5 mg/dL [facility]E [facility] ([place]) Comment: Interpretive Data No reference range established. Current interpretive data was last revised 2018. Testing performed by: [facility], [address] [place] [address]., [id number] Albumin Creatinine Ratio, Ur 17 1 - 29 mg/g [facility] ([place]) Comment:Testing performed by : [facility], [address] [place] [address]., [id number] Urine 11/17/2020 11:0 0 AM CDT 11/17/2020 2:34 PM CDT Carla Harrell NP LAB URINE ORDERABLES Final R esult [facility] ([place]) 1 [facility] Department [place] [address] * (ABNORMAL) Hemoglobin A1c (11/17/2020 10:48 AM [...] and children were not included. (Diabetes Care 31:8248-8868, 2008). The eAG is not equivalent to a fasting glucose. Blood 11/17/2020 10:4 8 AM CDT 11/17/2020 11:20 AM CDT Carla Kellie Hrarell RN DISEASE MANAGEMENT LAB BLOOD ORDERABLES Final R esult [facility] ([place]) 1 [facility] Department [place] [address] * (ABNORMAL) Lipid panel (11/17/2020 10:48 AM [...] CDT 11/17/2020 11:20 AM CDT Carla Harrell RN DISEASE MANAGEMENT LAB BLOOD ORDERABLES Final R esult [facility] ([place]) 1 [facility] Department [place] [address] * COLONOSCOPY (10/22/2020 10:34 AM CDT) Anatomical Region Laterality Modality Other Narrative Procedure Note Yunior Barber MD - 10/22/2020 10:34 AM CDT [facility] Patient Name: Dipika Tran Procedure Date: 10/22/2020 10:34 AM Date of : 1970 Admit Type: Outpatient Age: 50 Gender: Female Attending MD: Yunior Barber M.D. Room: [facility] ENDOSCOPY ROOM 2 Note Status: [...] scope was passed under direct vision. TheColonoscope [id number] was introduced through the anus and advanced [...] 10:34 AM Procedure Code(s): --- Professional --- 70178, Colonoscopy, flexible; diagnostic, including collection of specimen(s) by brushing or washing, when performed (separateprocedure) Diagnosis Code(s): --- Professional --- K57.30, Diverticulosis of large intestine without perforation orabscess without bleeding K64.9, Unspecified hemorrhoids CPT copyright 2019 [employer]. All rights reserved. The codes documented in this report are preliminary and upon certified medical coder reviewmay be revised to meet current compliance requirements. Recognized by the [employer] for promoting quality in endoscopy Yunior Barber MD ENDOSCOPY PROCEDURES Final Re sult from Last 3 Months or Most Recently Relevant to Health Maintenance Insurance [facility] Advance Directives For more information, please contact: [phone] * Full Code (Latest Code Status on File) Date Activated Date Inactivated Comments 11/20/2020 10:55 AM 11/20/2020 4:37 PM * Full Code Date Activated Date Inactivated Comments 10/22/2020 10:43 AM 10/22/2020 4:47 PM * Full Code Date Activated Date Inactivated Comments 10/22/2020 10:43 AM 10/22/2020 10:43 AM * Full Code Date Activated Date Inactivated Comments 10/20/2020 10:09 AM 10/20/2020 2:59 PM Care Teams Switchboard Troubleshooter Relationship Specialty Start Date End Date Unknown, Notinfile PCP - General 04/03/23
--- OUTSIDE RECORDS SUMMARY | 2024-05-02 07:55 | XMS_ITS | Encounter Summary ---
Author Organization [facility] Address [address] [place] [address] Care Team Providers Care Joiners Supervisor Name Role Phone Meme Samuel RN Unavailable Unavailable Omar Delarosa MD, [facility] Primary Care Prov ider Adelina Trinidad DO Unavailable Encounter Details Date Type Department Care Team (Late st Contact Info) Description 03/07/2022 [facility] Outpatient Visit [facility] Orthopedics - Radiology [address] [place] [address] [place] [address] Document, Scanned Social History Tobacco Use Types Packs/Day Years Used Date Smoking Tobacco: Every Day Cigarettes Smokeless Tobacco: Never Comments:STOP 3 DAYS BEFORE SURGERY Alcohol Use Standard Drinks/Week Comments No 0 (1 standard drink = 0.6 oz pur e alcohol) Sex and Gender Information Value Date Recorded Sex Assigned at Female 01/11/2022 4:28 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 No / Unsure 03/03/2022 1:05 PM PRINT CUTTER documented as of this encounter Functional Status [...] on filedocumented in this encounter Care Teams Joiners Supervisor Relationship Specialty [place] [address] [place] [address] PCP - General Family Medicine 02/09/22 Meme Samuel, RN Registered Nurse 02/06/17 Adelina Trinidad DO [address] [place] [address] Rheumatology 07/07/22 documented as of this encounter
--- OUTSIDE RECORDS SUMMARY | 2024-05-02 07:56 | XMS_ITS | Patient Health Summary ---
Author Organization [facility] Address [address] [facility] [place] [address] Care Team Providers Care Autocad Detailer Name Role Phone Meme Samuel RN Unavailable Unavailable Omar Delarosa MD, [facility] Primary Care Prov ider Adelina Trinidad DO Unavailable Note from [facility],non-owned Affiliates and Associated Physician Practices is amultiple site organization consisting of ambulatory clinics and hospital sitesin [place], [place], [place] and [place]. This disclosure is being madepursuant to the Care Everywhere program and may not contain all information available regarding this patient. Last updated 17.[facility] Allergies * Trazodone(Anaphylaxis) -High [...] HCl (Narcan) 4 MG/0.1ML nasal spray(Started 12/20/2021) [place] 1 (one) spray into the nose as [...] CAPSULE BY MOUTH EVERY DAY * HYDROcodone-acetaminophen ([place]) 10-325 MG tablet(Started 08/22/2022) Take 1 (one) [...] AT DINNER TIME OR BEDTIME * HYDROcodone-acetaminophen ([place]) 5-325 MG tablet(Started 03/22/2023) Take 1 (one) [...] Sex Assigned at Female 01/11/2022 4:28 AM PICTURES EDITOR Gender Identity Female 01/11/2022 4:28 AM PICTURES EDITOR Sexual Orientation Straight 01/11/2022 4: 28 AM PICTURES EDITOR Last Filed Vital Signs Vital Sign Reading [...] GLUCOSE - POINT OF CARE(Performed 04/18/2022) * NV REVISE MEDIAN N/CARPAL TUNNEL SURG(Performed 04/18/2022) Performed [...] lower quadrant), Constipation, unspecified constipation type * NV COLONOSCOPY, DIAGNOSTIC(Performed 12/31/2021) Performed for Abdominal pain, [...] 11/14/2022 6:01 PM CDT [facility] Specific [place] UA 1.025 1.005 - 1.030 11/14/2022 6:01 PM CDT [facility] Blood UA 2+(A) Negative 11/14/2022 6:01 PM CDT [facility] pH UA 5.0 5.0 - 8.0 pH 11/14/2022 6:01 PM CDT [facility] Protein UA 1+(A) Negative 11/14/2022 6:01 PM CDT -[facility] Urobilinogen UA 2.0(A) Negative mg/dL 11/14/2022 6:01 PM CDT [facility] Nitrite UA Negative Negative 11/14/2022 6:01 PM T -[facility] Leukocyte UA 1+(A) Negative 11/14/2022 6:01 PM T -[facility] Urine Microscopy Urine microscopy to follow 11/14/2022 6:01 PM T -[facility] Urine URINE SPECIMEN OBTAINED BY CLEAN CATCH PROCEDURE / Unknown Collection / Unknown 11/14/2022 4:59 PM CDT 11/14/2022 5:53 PM CDT [facility] - 11/14/2022 6:01 PM CDT Ascorbic Acid can cause false negative urine strip tests for blood, glucose, nitrite, and bilirubin. Adelian Trinidad DO LAB - URINALYSIS ORD ERABLES Performing Organization Address [facility]/ZIP Co de Phone Number [facility] [address] [place] [address] * (ABNORMAL) URINE MICROSCOPIC ONLY (11/14/2022 4:59 PM CDT) RBC UA >100(A) 0 - 5 # /hpf 11/14/2022 6:04 PM CDT [facility] WBC UA 21-50(A) 0 - 5 # /hpf 11/14/2022 6:04 PM CDT [facility] Hyaline Casts >20(A) 0 - 2 /LPF 11/14/2022 6:04 PM CDT [facility] Calcium Oxalate Crystals Many(A) None [...] Trinidad DO LAB - URINALYSIS ORD ERABLES [facility] [address] [place] [address] * C-REACTIVE PROTEIN (11/14/2022 4:59 PM CDT) Only the most recent of3 resultswithin the time period is included. C-Reactive Protein 0.11 <=0.50 mg/dL 11/14/2022 5:30 PM CDT [facility] Blood BLOOD SPECIMEN / Unknown Lab Venipuncture / Unknown 11/14/2022 4:59 PM CDT 11/14/2022 5:08 PM CDT Adelina Trinidad DO LAB - CHEMISTRY TIKA JORDAN [facility] [address] [place] [address] * (ABNORMAL) KETTY BLOOD TITER (11/14/2022 4:59 PM CDT) Speckled 1:80(A) <1:80 11/16/2022 11:53 AM CDT [facility] Blood BLOOD SPECIMEN / Unknown Lab Venipuncture / Unknown 11/14/2022 4:59 PM CDT 11/14/2022 5:08 PM CDT Narrative [facility] - 11/16/2022 11:53 AM CDT Methodology: Indirect Immunofluorescence Assay (IFA) utilizing Hep-2-Gamma cells. Adelina Trinidad [employer] CHEMISTRY [employer] JULIAN Performing Organization Address [facility] Co de Phone Number [facility] [address] [place] [address] * (ABNORMAL) KETTY BLOOD SCREEN W/REFLEX TITER (11/14/2022 4:59 PM CDT) Only the most recent of2 resultswithin the time period is included. KETTY Positive(A ) Negative 11/16/2022 11:53 AM CDT [facility] Blood BLOOD SPECIMEN / Unknown Lab Venipuncture / Unknown 11/14/2022 4:59 PM CDT 11/14/2022 5:08 PM CDT Narrative [facility] - 11/16/2022 11:53 AM CDT Methodology: Indirect Immunofluorescence Assay (IFA) utilizing Hep-2-Gamma cells. AdelinaSopogyani [employer] LAB - CHEMISTRY [employer] [facility] [address] [place] [address] * COMPLEMENT TOTAL (11/14/2022 4:59 PM CDT) Pathologist [facility] Complement Total CH50 >60 >41 U/mL 11/16/2022 3:07 PM CDT [facility] ([facility]) Comment: Age Male Female 1 - 30 [...] CDT 11/14/2022 5:08 PM CDT Narrative [facility] ([facility]) - 11/16/2022 3:07 PM CDT Performed at: [address] [place] [id number] Wreath Maker: Valerio Marks PhD, Phone: [phone] Adelina Trinidad DO LAB - CHEMISTRY ORDE RABNANCY Performing Organization Address City/[facility]/ZIP Co de Phone Number [facility]) [address] [place] [address] * ERYTHROCYTE SEDIMENTATION RATE (11/14/2022 4:59 PM CDT) Only the most recent of3 resultswithin the time period is included. [facility] Erythrocyte Sedimentation Rate Automated 18 0 - 30 MM/HR 11/14/2022 5:18 PM CDT [facility] Blood BLOOD SPECIMEN / Unknown Lab Venipuncture / Unknown 11/14/2022 4:59 PM CDT 11/14/2022 5:08 PM CDT Adelina Trinidad DO LAB - HEMATOLOGY ORD ERABLES [facility] [address] [place] [address] * (ABNORMAL) CBC WITH DIFFERENTIAL (11/14/2022 4:59 [...] - 1 % 11/14/2022 5:12 PM CDT -[facility] Neutrophil Absolute 2.82 2.01 - 7.14 x10E9/L 11/14/2022 5:12 PM CDT [facility] Lymphocytes Absolute 2.71 1.07 - 3.94 x10E9/L 11/14/2022 5:12 PM CDT [facility] Monocytes Absolute 0.36 0.26 - 1.07 x10E9/L 11/14/2022 5:12 PM CDT -[facility] Eosinophils Absolute 0.12 0 - 0.47 x10E9/L 11/14/2022 5:12 PM CDT -[facility] Basophils Absolute 0.04 0 - 0.08 x10E9/L 11/14/2022 5:12 PM CDT -[facility] Immature Granulocytes Absolute 0.01 0.00 - 0.06 x10E9/L 11/14/2022 5:12 PM CDT [facility] nRBC Auto 0 /100 WBC 11/14/2022 5:12 PM CDT [facility] Blood BLOOD SPECIMEN / Unknown Lab Venipuncture / Unknown 11/14/2022 4:59 PM CDT 11/14/2022 5:08 PM CDT Adelina Trinidad DO LAB - HEMATOLOGY ORD ERABLES [facility] [address] [place] [address] * COMPLEMENT C4 (11/14/2022 4:59 PM CDT) Complement C4 41 15 - 57 mg/dL 11/14/2022 10:15 PM CDT [facility] Blood BLOOD SPECIMEN / Unknown Lab Venipuncture / Unknown 11/14/2022 4:59 PM CDT 11/14/2022 5:08 PM CDT Adelina Vivi DO LAB - SEROLOGY ORDER ASHLEY [facility] [address] [place] [address], [facility] [phone] * (ABNORMAL) COMPREHENSIVE METABOLIC PANEL (11/14/2022 4:59 [...] mL/min/1.7 3 m2 11/14/2022 5:30 PM CDT [facility] Blood BLOOD SPECIMEN / Unknown Lab Venipuncture / Unknown 11/14/2022 4:59 PM CDT 11/14/2022 5:08 PM CDT Adelina Trinidad DO LAB - CHEMISTRY ORDE RABLES [facility] [address] [place] [address] * (ABNORMAL) PROTEIN CREATININE RATIO URINE RANDOM PNL (11/14/2022 4:59 PM CDT) Only the most recent of2 resultswithin the time period is included. Protein Urine 22.7(H) <11.9 mg/dL 11/14/2022 6:12 PM CDT [facility] Creatinine Urine 310.77 mg/dL 11/14/2022 6:12 PM CDT [facility] Protein/Creatin ine Ratio Urine 0.07 11/14/2022 6:12 PM CDT [facility] Urine URINE SPECIMEN OBTAINED BY CLEAN CATCH PROCEDURE / Unknown Collection / Unknown 11/14/2022 4:59 PM CDT 11/14/2022 5:53 PM CDT Adelina Trinidad DO LAB - URINE CHEMISTR Y ORDERABLES [facility] [address] [place] [address] * COMPLEMENT C3 (11/14/2022 4:59 PM CDT) Complement C3 136 82 - 193 mg/dL 11/14/2022 10:14 PM CDT [facility] Blood BLOOD SPECIMEN / Unknown Lab Venipuncture / Unknown 11/14/2022 4:59 PM CDT 11/14/2022 5:08 PM CDT Adelina Trinidad DO LAB - CHEMISTRY TIKA JORDAN [facility] [address] [place] [address], [facility] [phone] * PAIN MANAGEMENT PROCEDURE TIME (09/06/2022 10:11 [...] OF EXAM: 08/02/2022 3:32 PM, LOCATION [facility] INDICATION: M16.12: Unilateral primary osteoarthritis, left hip [...] DATE/TIME OF EXAM: 33:32 PM, LOCATION [facility] INDICATION: M16.12: Unilateral primary osteoarthritis, left hip [...] [facility] [address] [facility] [phone] Adelina Trinidad DO LAB - CHEMISTRY TIKA JORDAN [facility] INSURANCE BILL [address] [place] [address] * INTERPRETATION REFLEXED (07/06/2022 11:34 AM CDT) [...] [facility] [address] [facility] [phone] Adelina Trinidad DO LAB - SEROLOGY ORDER ASHLEY [facility] INSURANCE BILL [address] [place] [address] * EARLY SJOGREN'S SYNDROME PROFILE (07/06/2022 11:34 [...] in primary sjogren's syndrome. J Immunol; 185: 7838-0811. Manish Lebron et al. (2012). Novel autoantibodies in Sjogren's syndrome. Clinical Immunology;145, 251-255. *This test has been developed and performance parameters have been validated by [employer] This test has not been approved by the U.S. Food and Drug Administration (FDA); however, US FDA approval is not required for clinical use. It is not intended that clinical diagnosis and patient management decisions be made using these results alone. This test has been validated using serum samples. The regional engagement consultant has not determined the efficacy of this test when performed on CSF, plasma, joint or pleural fluid specimens. The performance characteristics of this test were determined by [employer] Blood BLOOD SPECIMEN / Unknown 07/06/2022 11:34 AM CDT 07/06/2022 Narrative Resulting Agency Comment Lab Testing performed at: [employer] [address] [employer] [address] [place] [phone] Adelina Trinidad DO LAB - SEROLOGY ORDER ASHLEY [facility] INSURANCE BILL [address] [place] [address] * IGG SUBCLASS 4 (07/06/2022 11:34 AM CDT) IgG Subclass 4 17 2 - 96 mg/dL [facility] INSURANCE BILL Blood BLOOD SPECIMEN / Unknown 07/06/2022 11:34 AM CDT 07/06/2022 Narrative Resulting Agency Comment Lab Testing performed at: [facility] [address] [facility] [phone] Adelina Trinidad DO LAB - CHEMISTRY ORDE RABLES [facility] INSURANCE BILL [address] [place] [address] * (ABNORMAL) URINALYSIS MICROSCOPIC ONLY REFLEXED (07/06/2022 [...] Resulting Agency Comment Lab Testing performed at: [facility] [place] [address] [facility] [phone] Adelina Trinidad DO LAB - URINALYSIS ORD ERABLES [facility] INSURANCE BILL [address] [place] [address] * (ABNORMAL) URINALYSIS W/MICROSCOPIC NO CULTURE (07/06/2022 11:34 AM CDT) Specific [place] UA 1.026 1.005 - 1.030 [facility] INSURANCE [...] Resulting Agency Comment Lab Testing performed at: [facility] [address] [facility] [phone] Adelina Trinidad DO LAB - URINALYSIS ORD ERABLES Performing Organization Address City/[facility]/ZIP Co de Phone Number [facility] INSURANCE BILL [address] [place] [address] * MYOSITIS ANTIBODY PANEL COMPREHENSIVE (07/06/2022 11:31 [...] <20 Units [facility] INSURANCE BILL Anti-U1 MOLDER SETTER By EIA <20 <20 Units [facility] INSURANCE BILL U2 sn MOLDER SETTER Antibody Negative Negative [facility] INSURANCE BILL Fibrillarin (U3 MOLDER SETTER) Negative Negative [facility] INSURANCE BILL Comment: Interpretation for Anti-Evelina-1, Quaf-JOO-3hukku, Anti-MDA-5, Anti-NXP-2, Anti-PM/Scl-100, Anti-SS-A 52 kD, Anti-U1 MOLDER SETTER: Negative: <20 Weak Positive: 20 - 39 Moderate Positive: 40 - 80 Strong Positive: >80 . Blood BLOOD SPECIMEN / Unknown 07/06/2022 11:31 AM CDT 07/06/2022 Narrative [facility] INSURANCE BILL - 07/24/2022 11:06 PM CDT Test(s) 195459-Mlqf-TA-7 Ab (RDL); 548094-Rrba-KG-02 Ab (RDL); 748412-Qvac-UX Ab (RDL); 905592-Rgea-SF Ab (RDL); 375134- Anti-SRP Ab (RDL); 060116-Urqd-Wn-7 Ab (RDL); 279412- Dqop-HKT-6vaacy Ab (RDL); 280588-Gnot-XTF-8 Ab (CADM-140)(RDL); 003799-Obim-HNG-0 (P140) Ab (RDL); 563870-Vfzh-BW/Scl-100 Ab (RDL); 236728-Pkaq-Aw Ab (RDL); 055561-Mhaa-AV-M 52kD Ab, IgG (RDL); 308249- was developed and its performance characteristics determined by [facility]. It has not been cleared or approved by the Food and Drug Administration. Resulting Agency Comment Lab Testing performed at: [employer] [address] [place] [address] [phone] Adelina Trinidad DO LAB - CHEMISTRY ORDE RABNANCY Performing Organization Address [facility] Co de Phone Number [facility] INSURANCE BILL [address] [place] [address] * CRYOGLOBULIN SCREEN W/ REFLEX (07/06/2022 11:31 AM CDT) Pathologist [facility] Cryoglobulin Qualitative None detected [facility] INSURANCE BILL Comment: None Detected at 72 hours This test was developed and its performance characteristics determined by [facility]. It has not been cleared or approved by the Food and Drug Administration. Blood BLOOD SPECIMEN / Unknown 07/06/2022 11:31 AM CDT 07/06/2022 Narrative Resulting Agency Comment Lab Testing performed at: [facility] [address] [facility] [phone] Adelina Trinidad DO LAB - CHEMISTRY ORDE JULIAN Performing Organization Address [facility] Co de Phone Number [facility] INSURANCE BILL [address] [place] [address] * URIC ACID BLOOD (07/06/2022 11:31 AM CDT) Uric Acid 6.5 3.0 - 7.2 mg/dL [facility] INSURANCE BILL Comment:Therapeutic target f or gout patients: <6.0 Blood BLOOD SPECIMEN / Unknown 07/06/2022 11:31 AM CDT 07/06/2022 Narrative Resulting Agency Comment Lab Testing performed at: [facility] [place] [address] [facility] [phone] Adelina Trinidad DO LAB - CHEMISTRY ORDE JULIAN Performing Organization Address [facility]/ZIP Co de Phone Number [facility] INSURANCE BILL [address] [place] [address] * HLA TYPING B27 (07/06/2022 11:31 AM CDT) HLA-B27 Negative [facility] INSURANCE BILL Comment: HLA-B*27 Negative B27 allele interpretation for all loci based on IMGT/HLA database version 3.44 This test was developed and its performance characteristics determined by [facility]. It has not been cleared or approved by the Food and Drug Administration. HLA Lab CLIA ID Number [id number] . This test was performed using PCR [...] Resulting Agency Comment Lab Testing performed at: [facility] DNA [address] [facility] [phone] Adelina Trinidad DO LAB - CHEMISTRY TIKA JORDAN [facility] INSURANCE BILL [address] [place] [address] * VITAMIN D 25-HYDROXY (07/06/2022 11:31 AM CDT) Only the most recent of2 resultswithin the time period is included. Pathologist [facility] Vitamin D, 25 Hydroxy 32.0 30.0 - 100.0 ng/mL [facility] INSURANCE BILL Comment: Vitamin D deficiency has been defined by the [place] of Medicine and an Endocrine Society practice guideline as a level of serum 25-OH vitamin D less than 20 ng/mL (1,2). The Endocrine Society went on to further define vitamin D insufficiency as a level between 21 and 29 ng/mL (2). 1. IOM ([place] of Medicine). 2010. Dietary reference intakes for calcium and D. [place]: The National Academies Press. 2. Jh MF, Mc FERNANDES, Johnnie LUTZ, et al. Evaluation, treatment, and prevention of vitamin D deficiency: an Endocrine Society clinical practice guideline. JCEM. 2010; 96(7):1911-30. Blood BLOOD SPECIMEN / Unknown 07/06/2022 11:31 AM CDT 07/06/2022 Narrative Resulting Agency Comment Lab Testing performed at: [facility] [address] [facility] [phone] Adelina Trinidad DO LAB - CHEMISTRY ORDE RABLES [facility] INSURANCE BILL [address] [place] [address] * ANGIOTENSIN CONVERTING ENZYME BLOOD (07/06/2022 11:31 AM CDT) Angiotensin-Con verting Enzyme 59 14 - 82 U/L [facility] INSURANCE BILL Blood BLOOD SPECIMEN / Unknown 07/06/2022 11:31 AM CDT 07/06/2022 Narrative Resulting Agency Comment Lab Testing performed at: [facility] [address] [facility] [phone] Adelina Trinidad DO LAB - CHEMISTRY ORDE RABLES Performing Organization Address [facility]/ZIP Co de Phone Number [facility] INSURANCE BILL [address] [place] [address] * (ABNORMAL) ALDOLASE (07/06/2022 11:31 AM CDT) Aldolase 2.7(L) 3.3 - 10.3 U/L [facility] INSURANCE BILL Blood BLOOD SPECIMEN / Unknown 07/06/2022 11:31 AM CDT 07/06/2022 Narrative Resulting Agency Comment Lab Testing performed at: [facility] [place] [address] [facility] [phone] Adelina Trinidad DO LAB - CHEMISTRY ORDE RABLES Performing Organization Address City/[facility]/ZIP Co de Phone Number [facility] INSURANCE BILL [address] [place] [address] * QUANTIFERON TB-GOLD (07/06/2022 11:31 AM CDT) [...] Resulting Agency Comment Lab Testing performed at: [facility] [phone] Adelina Trinidad DO LAB - CHEMISTRY TIKA JORDAN [facility] Organization Address City/State/ZIP Co de Phone Number [facility] INSURANCE BILL [address] [place] [address] * CK BLOOD (07/06/2022 11:31 AM CDT) Only the most recent of2 resultswithin the time period is included. Pathologist [facility] CK 180 32 - 182 U/L [facility] INSURANCE BILL Blood BLOOD SPECIMEN / Unknown 07/06/2022 11:31 AM CDT 07/06/2022 Narrative Resulting Agency Comment Lab Testing performed at: [facility] [phone] Adelina Trinidad DO LAB - CHEMISTRY ORDGene JORDAN [facility] INSURANCE BILL [address] [place] [address] * VITAMIN B12 (07/06/2022 11:31 AM CDT) Vitamin B12 932 232 - 1,245 pg/mL [facility] INSURANCE BILL Blood BLOOD SPECIMEN / Unknown 07/06/2022 11:31 AM CDT 07/06/2022 Narrative Resulting Agency Comment Lab Testing performed at: [facility] [address] [facility] [phone] Adelina Trinidad DO LAB - CHEMISTRY ORDGene JORDAN Performing Organization Address City/[facility]/ZIP Co de Phone Number [facility] INSURANCE BILL [address] [place] [address] * (ABNORMAL) COMPLEMENT C3 C4 PANEL (07/06/2022 11:31 AM CDT) Complement C3 155 82 - 167 mg/dL [facility] INSURANCE BILL Complement C4 39(H) 12 - 38 mg/dL [facility] INSURANCE BILL Blood BLOOD SPECIMEN / Unknown 07/06/2022 11:31 AM CDT 07/06/2022 Narrative Resulting Agency Comment Lab Testing performed at: [facility] [address] [phone] Adelina Trinidad DO LAB - CHEMISTRY TIKA JORDAN Performing Organization Address City/[facility]/ZIP Co de Phone Number [facility] INSURANCE BILL [address] [place] [address] * TSH (07/06/2022 11:31 AM CDT) TSH 1.150 0.450 - 4.500 uIU/mL [facility] INSURANCE BILL Blood BLOOD SPECIMEN / Unknown 07/06/2022 11:31 AM CDT 07/06/2022 Narrative Resulting Agency Comment Lab Testing performed at: [facility] [address] [facility] [phone] Adelina Trinidad DO LAB - CHEMISTRY TIKA JORDAN [facility] INSURANCE BILL [address] [place] [address] * (ABNORMAL) GLUCOSE - POINT OF CARE (04/18/2022 7:52 AM PICTURES EDITOR) Only the most recent of2 resultswithin the time period is included. Glucose WB/POC 108(H) 70 - 106 mg/dL 04/18/2022 7:59 AM PICTURES EDITOR [facility] Specimen Type Cap Fingerstick 2022 7:59 AM PICTURES EDITOR [facility] Blood BLOOD SPECIMEN / Unknown 04/18/2022 7:52 AM PICTURES EDITOR 04/18/2022 7:59 AM PICTURES EDITOR Tejal Mccabe MD LAB - POINT OF CARE ORDERABLES [facility] [address] [place] [address] * LAB RESULTS ORDER (04/18/2022) 04/18/2022 Narrative 04/18/2022 Ordered by an unspecified provider. Scanned Document LAB - THERAPEUTIC DR UG MONITORING ORDERABLES * XR PELVIS W BILAT HIP 2VW (04/14/2022 12:58 PM PICTURES EDITOR) Anatomical Region Laterality Modality Pelvis, Lower Extremity Radiogra phic Imaging 04/14/2022 3:04 PM PICTURES EDITOR Impressions 04/14/2022 3:06 PM PICTURES EDITOR IMPRESSION: Severe degenerative osteoarthritis left hip as described above. > Interpreting Provider: Kuldip Bedoya MD on 04/14/2022 3:06 PM Narrative 04/14/2022 3:06 PM PICTURES EDITOR PROCEDURE: XR PELVIS W BILAT HIP 2VW, DATE/TIME OF EXAM: 04/14/2022 1:03 PM, LOCATION [facility] INDICATION: R76.8: Other specified abnormal immunological [...] 2VW, DATE/TIME OF EXAM: 31:03 PM, LOCATION [facility] INDICATION: R76.8: Other specified abnormal immunological [...] BILAT 2VW OR LESS (04/14/2022 12:52 PM PICTURES EDITOR) Anatomical Region Laterality Modality Lower Extremity Radiographic Ghazal ging 04/14/2022 3:50 PM PICTURES EDITOR Impressions 04/14/2022 3:52 PM PICTURES EDITOR IMPRESSION: 1. No acute fracture or knee joint effusion. 2. Mild osteoarthritic changes of the medial central weightbearing compartments bilaterally. > Interpreting Provider: Joshua Mandujano MD on 04/14/2022 3:52 PM Narrative 04/14/2022 3:52 PM PICTURES EDITOR PROCEDURE: XR KNEE BILAT 2VW OR LESS, DATE/TIME OF EXAM: 04/14/2022 3:42 PM, LOCATION [facility] INDICATION: R76.8: Other specified abnormal immunological [...] LESS, DATE/TIME OF EXAM: 33:42 PM, LOCATION [facility] INDICATION: R76.8: Other specified abnormal immunological [...] MRI BRAIN WWO CONTRAST (03/14/2022 9:42 AM PICTURES EDITOR) Anatomical Region Laterality Modality Head Magnetic Resonan ce 03/14/2022 9:47 AM PICTURES EDITOR Impressions 03/14/2022 9:49 AM PICTURES EDITOR IMPRESSION: Limited by motion Otherwise essentially normal MRI of the brain > Interpreting Provider: Calin Tavarez MD on 03/14/2022 9:49 AM Narrative 03/14/2022 9:49 AM PICTURES EDITOR PROCEDURE: MRI BRAIN WWO CONTRAST, DATE/TIME OF [...] W LEFT HIP 2VW (01/11/2022 3:55 AM PICTURES EDITOR) Anatomical Region Laterality Modality Pelvis Radiographic Ghazal ging 01/11/2022 9:23 AM PICTURES EDITOR Impressions 01/11/2022 9:24 AM PICTURES EDITOR IMPRESSION: Mild symmetric osteoarthrosis, SI joints. Moderate, asymmetric osteoarthrosis of the LEFT hip. > Interpreting Provider: Salvador Hughes MD on 01/11/2022 9:24 AM Narrative 01/11/2022 9:24 AM PICTURES EDITOR PROCEDURE: XR PELVIS W LEFT HIP 2VW, [...] PATHOLOGY TISSUE EXAM (STL) (12/31/2021 10:37 AM PICTURES EDITOR) Only the most recent of2 resultswithin the time period is included. Case Report Surgical Pathology Report Case: [id number] Authorizing Provider: Malcom Kline MD Collected: 12/31/2021 10:37 AM Ordering Location: [facility] Received: 12/31/2021 01:10 PM Pathologist: Chad Zarate MD Specimen: Polyp Descending, x1 CS 01/03/2022 2:33 PM PICTURES EDITOR [facility] Final Diagnosis Colon, descending, endoscopic polypectomy: Hyperplastic polyp 01/03/2022 2:33 PM PICTURES EDITOR [facility] Clinical History Colonoscopy performed to evaluate left upper quadrant pain in a 51-year-old female demonstrates 6 mm sessile descending colon polyp. 01/03/2022 2:33 PM PICTURES EDITOR [facility] Gross Description One specimen received in a formalin filled container labeled descending polyp x1 consists of a 16 x 4 x 3 mm jefferson-red polypoid tissue. Polyp is sectioned and is entirely submitted in A1. 01/03/2022 2:33 PM PICTURES EDITOR [facility] Disclaimer All histochemical and/or immunohistochemical results are interpreted with controls that demonstrate appropriate staining reactions before reporting results. Note on use of immunocytochemistry reagents: This test was developed and its performance characteristic determined by [facility], Department of Laboratory Medicine. It has not [...] be interpreted with caution. 01/03/2022 2:33 PM PICTURES EDITOR [facility] Performed By [facility], [facility] at [address] [address]. 01/03/2022 2:33 PM PICTURES EDITOR -[facility] Embedded Images 01/03/2022 2:33 PM PICTURES EDITOR [facility] Pathology/Cytology POLYP / Unknown 2021 10:37 AM PICTURES EDITOR 12/31/2021 1:10 PM PICTURES EDITOR Comment:Pre-op diagnosis: Abdominal pain, LLQ (left lower quadrant) [R10.32] Constipation, unspecified constipation type [K59.00] Malcom Kline MD LAB - PATHOLOGY/CYTO LOGY ORDERABLES [facility] [address] [place] [address] * ENDOSCOPY, COLON, DIAGNOSTIC (12/31/2021 10:08 AM PICTURES EDITOR) Report Endoscopy POC _ Patient Name: Dipika [...] for surveillance. Procedure Code(s): --- Professional --- 47296, Colonoscopy, flexible; with removal of tumor(s), polyp(s), or other lesion(s) by snare technique --- Technical --- 36650, Colonoscopy, flexible; with removal of tumor(s), polyp(s), or other lesion(s) by snare technique Diagnosis Code(s): --- Professional --- K64.4, Residual hemorrhoidal skin tags K63.5, Polyp of colon R10.12, Left upper quadrant pain --- Technical --- K64.4, Residual hemorrhoidal skin tags K63.5, Polyp of colon R10.12, Left upper quadrant pain CPT copyright 2019 [employer]. All rights reserved. The codes documented in this report are preliminary and upon outpatient coder review may be revised to meet current compliance requirements. Dr. Alivia Kline MD Malcom Kline MD 12/31/2021 10:36:33 AM This report has been signed electronically. Number of Addenda: 0 Note Initiated On: 12/31/2021 10:08 AM Procedure Date: 12/31/2021 10:08:52 AM Scope Withdrawal Time: 0 hours 9 minutes 30 seconds [facility] 12/31/2021 10:0 8 AM PICTURES EDITOR Malcom Kline MD GI PROCEDURE ORDERAB LES [facility] * TREPONEMA PALLIDUM POS REFLX RPR (12/17/2021 12:05 PM CDT) T pallidum Antibody (TP-PA) Non Reactive Non Reactive [facility] INSURANCE BILL Blood BLOOD SPECIMEN / Unknown 12/17/2021 12:05 PM CDT 12/17/2021 Narrative Resulting Agency Comment Lab Testing performed at: [facility] [place] [address] [facility] [id number] Aria Ch MD LAB - SEROLOGY ORDER ASHLEY Performing Organization Address City/[facility]/ZIP Co de Phone Number [facility] INSURANCE BILL [address] [place] [address] * TSH REFLEX FREE T4 (12/17/2021 12:05 PM CDT) Pathologist [facility] TSH 1.050 0.450 - 4.500 uIU/mL [facility] INSURANCE BILL Blood BLOOD SPECIMEN / Unknown 12/17/2021 12:05 PM CDT 12/17/2021 Narrative Resulting Agency Comment Lab Testing performed at: [facility] [address] [facility] [id number] Aria Ch MD LAB - CHEMISTRY ORDE RABLES Performing Organization Address City/[facility] Co de Phone Number [facility] INSURANCE BILL [address] [place] [address] * (ABNORMAL) SHERRIE STAINING PATTERNS REFLEXED (12/17/2021 [...] for this observation. Centriole Pattern NOT AVAILABLE [facility] INSURANCE BILL Comment:Result cannot be obt ained for this observation. Note [facility] INSURANCE BILL Comment: For more information about Hep-2 cell patterns use [employer]er[employer]vul[employer]ere[employer], the official website for the International Consensus on Antinuclear Antibody (KETTY) Patterns (ICAP). A positive KETTY result may occur in healthy individuals (low titer) or be associated with a variety of diseases. See interpretation chart which is not all inclusive: . Pattern Antigen Detected Suggested Disease Association Homogeneous DNA(ds,ss), SLE - High titers Nucleosomes, Histones Drug-induced SLE Speckled Sm, MOLDER SETTER, SCL-70, SLE,MCTD,PSS (diffuse form), SS-A/SS-B Sjogrens Nucleolar SCL-70, PM-1/SCL High titers Scleroderma, PM/DM Centromere Centromere PSS (limited form) w/Crest syndrome variable Nuclear Dot Sp100,[id number] Primary Biliary Cirrhosis Nuclear GP210, Primary Biliary Cirrhosis Membrane trevor A,B,C 12/17/2021 12:0 5 PM CDT 12/17/2021 Narrative Resulting Agency Comment Lab Testing performed at: [employer] [facility] [id number] Aria Ch MD LAB - PATHOLOGY/CYTO LOGY ORDERABLES Performing Organization Address City/[facility]/ZIP Co de Phone Number [facility] INSURANCE BILL [address] [place] [address] * IMMUNOFIXATION BLOOD (12/17/2021 12:05 PM CDT) [...] Resulting Agency Comment Lab Testing performed at: [facility] [id number] Aria Ch MD LAB - CHEMISTRY ORDE RABNANCY Performing Organization Address [facility]/ZIP Co de Phone Number [facility] INSURANCE BILL [address] [place] [address] * VITAMIN B12 FOLATE PANEL (12/17/2021 12:05 PM CDT) Pathologist [facility] Vitamin B12 888 232 - 1,245 pg/mL [facility] INSURANCE BILL Folate >20.0 >3.0 ng/mL [facility] INSURANCE BILL Comment: A serum folate concentration of less than 3.1 ng/mL is considered to represent clinical deficiency. Blood BLOOD SPECIMEN / Unknown 12/17/2021 12:05 PM CDT 12/17/2021 Narrative Resulting Agency Comment Lab Testing performed at: [facility] [address] [facility] [id number] Aria Ch MD LAB - CHEMISTRY TIKA JORDAN [facility] INSURANCE BILL [address] [place] [address] * (ABNORMAL) PROTEIN ELECTROPHORESIS BLOOD (12/17/2021 12:05 PM CDT) [facility] Protein Total 7.2 6.0 - 8.5 g/dL [facility] INSURANCE BILL Albumin 3.7 2.9 - 4.4 g/dL [facility] INSURANCE BILL Alpha-1 Globulin 0.2 0.0 - 0.4 g/dL [facility] INSURANCE BILL Xcefo-8-Ukeixmvg 1.1(H) 0.4 - 1.0 g/dL [facility] INSURANCE [...] scan will follow via computer, mail, or nutritional services director delivery. P E Interpretation, S [facility] INSURANCE [...] Resulting Agency Comment Lab Testing performed at: [facility] [address] [facility] [id number] Aria Ch MD LAB - CHEMISTRY TIKA JORDAN [facility] INSURANCE BILL [address] [place] [address] * CT ABDOMEN PELVIS W CONTRAST (12/15/2021 [...] MD on 12/15/2021 1:39 PM Matilde Poropat RECLAMATION KETTLE TENDER-HAIR WEAVER CT ORDERABLES * ISTAT CREATININE (12/15/2021 1:14 PM CDT) Sample iSTAT CIRO 01/18/2022 12:24 PM PICTURES EDITOR [facility] Creatinine POCT 0.8 0.5 - 1.3 mgdL 01/18/2022 12:24 PM PICTURES EDITOR [facility] Blood BLOOD SPECIMEN / Unknown 12/15/2021 1:14 PM CDT 01/18/2022 12:24 PM PICTURES EDITOR Raymond Nelson Jr., MD [facility] ORDERABLES [place] [address] [address] * XR ABDOMEN KUB (12/01/2021 12:56 PM CDT) Anatomical Region Laterality Modality Abdomen Computed Radiogr aphy 12/01/2021 1:01 PM CDT Impressions 12/01/2021 1:01 PM CDT IMPRESSION: No radiographic evidence of acute intra-abdominal process. Moderate constipation. > Interpreting Provider: Farhan Diego MD on 12/01/2021 1:01 PM Narrative 12/01/2021 1:01 PM CDT PROCEDURE: XR ABDOMEN KUB, DATE/TIME OF EXAM: 12/01/2021 12:56 PM, LOCATION [facility] INDICATION: R10.32: Left lower quadrant pain K59.00: [...] OF EXAM: 12/01/2021 12:56 PM, LOCATION [facility] INDICATION: R10.32: Left lower quadrant pain K59.00: [...] MD on 12/01/2021 1:01 PM Matilde Barker RECLAMATION KETTLE TENDER-HAIR WEAVER DIAGNOSTIC IMAG ING ORDERABLES * XR LUMBAR [...] DATE/TIME OF EXAM: 11/08/2021 8:04 AM, LOCATION [facility] INDICATION: M54.41: Lumbago with sciatica, right [...] DATE/TIME OF EXAM: 11/08/2021 8:04 AM, LOCATION [facility] INDICATION: M54.41: Lumbago with sciatica, right [...] LIPASE BLOOD (07/26/2020 6:55 AM CDT) Pathologist [facility] Lipase 29 8 - 78 U/L 07/26/2020 7:29 AM CDT [facility] Blood BLOOD SPECIMEN / Unknown Venipuncture / Unknown 07/26/2020 6:55 AM CDT 07/26/2020 7:07 AM CDT Librado Guan DO LAB - CHEMISTRY ORDERABLES [facility] AT [address] [address] * BASIC METABOLIC PANEL (CALCIUM TOTAL) (03/17/2017 4:00 AM PICTURES EDITOR) Only the most recent of8 resultswithin the time period is included. Pathologist [facility] BUN 10 7 - 26 mg/dL [facility] Creatinine 0.7 0.6 - 1.2 mg/dL [facility] Sodium 139 136 - 145 mmol/L [facility] Potassium 3.9 3.5 - 4.5 mmol/L [facility] Chloride 104 98 - 107 mmol/L [facility] CO2 26 22 - 29 mmol/L [facility] Glucose 111 70 - 115 mg/dL [facility] Calcium 9.0 8.4 - 10.2 mg/dL [facility] Comment:Confirmed by repeat analysis. Anion Gap 13 8 - 18 [facility] BUN/Creatinine Ratio 14 7 - 23 [facility] Osmolality Calculated 288 270 - 300 mOsm/kg [facility] eGFR >60 >60 mL/min/1.7 3 m2 [facility] Blood specimen (specimen) BLOOD SPECIMEN / Unknown 03/17/2017 4:00 AM PICTURES EDITOR 03/17/2017 4:09 AM PICTURES EDITOR Kenyon Panchal MD LAB - CHEMISTRY TIKA JORDAN [address] [phone] * (ABNORMAL) CBC W/O DIFFERENTIAL (03/17/2017 4:00 AM PICTURES EDITOR) Only the most recent of7 resultswithin the time period is included. WBC 4.1 3.5 - 10.5 10 3/uL [facility] RBC 3.66(L) 3.90 - 5.00 10 6/uL [facility] Hemoglobin 11.1(L) 12.0 - 15.5 g/dL [facility] Hematocrit 34.1(L) 35.0 - 45.0 % [facility] MCV 93.2 81.0 - 97.0 fL [facility] MCH 30.3 28.0 - 34.0 pg [facility] MCHC 32.6 32.0 - 36.0 g/dL [facility] Platelet Count 202 150 - 400 10 3/uL [facility] RDW-SD 43.5 36.0 - 50.0 fL [facility] RDW-CV 13.0 11.2 - 14.8 % [facility] MPV 10.2 9.3 - 12.8 fL [facility] Blood specimen (specimen) BLOOD SPECIMEN / Unknown 03/17/2017 4:00 AM PICTURES EDITOR 03/17/2017 4:09 AM PICTURES EDITOR Kenyon Panchal MD LAB - HEMATOLOGY ORD ERABLES [facility] [address] [phone] * (ABNORMAL) GLUCOSE ACCUCHECK (03/16/2017 8:12 PM PICTURES EDITOR) Only the most recent of36 resultswithin the time period is included. Pathologist [facility] Glucose, Fingerstick 129(H) 70-115mg/d L mg/dL [facility] Comment:Ase Certified Technician: CORY BENITO 03/16/2017 8:12 PM PICTURES EDITOR Kenyon Panchal MD LAB - CHEMISTRY ORDGene JORDAN [facility] (BEAKER) * VANCOMYCIN LEVEL TROUGH (03/16/2017 2:28 PM PICTURES EDITOR) Only the most recent of4 resultswithin the time period is included. Vancomycin Trough 14.7 10.0 - 20.0 mcg/mL [facility] Blood specimen (specimen) BLOOD SPECIMEN / Unknown 03/16/2017 2:28 PM PICTURES EDITOR 03/16/2017 2:37 PM PICTURES EDITOR Kenyon Panchal MD LAB - CHEMISTRY ORDE JULIAN Performing Organization Address City/[facility]/ZIP Co de Phone Number [address] [phone] * TYPE + SCREEN PANEL (03/15/2017 7:14 AM PICTURES EDITOR) Only the most recent of3 resultswithin the time period is included. Typem O POS [facility] Antibody Screen NEG [facility] Blood specimen (specimen) 03/15/2017 7:14 AM PICTURES EDITOR 03/15/2017 7:32 AM PICTURES EDITOR Kenyon Panchal MD LAB - BLOOD BANK ORD ERABLES Performing Organization Address [facility] Co de Phone Number [facility] LAB [address] [place] [address] * ALBUMIN BLOOD (03/15/2017 3:07 AM PICTURES EDITOR) Albumin 3.6 3.4 - 5.0 g/dL [facility] Blood specimen (specimen) BLOOD SPECIMEN / Unknown 03/15/2017 3:07 AM PICTURES EDITOR 03/15/2017 3:12 AM PICTURES EDITOR Kenyon Panchal MD LAB - CHEMISTRY ORDE JULIAN Performing Organization Address [facility]/ZIP Co de Phone Number [address] [phone] * CULTURE FUNGUS OTHER+FUNGUS SMEAR (03/13/2017 8:16 AM PICTURES EDITOR) Only the most recent of5 resultswithin the time period is included. Culture Fungus-Other No Growth Fungi. [facility] Fungus Smear No Fungi seen. [facility] Fluid specimen (specimen) (Unspecified) 03/13/2017 8:16 AM PICTURES EDITOR 03/13/2017 1:59 PM PICTURES EDITOR Narrative [facility] - 04/10/2017 10:58 AM PICTURES EDITOR Post irrigation of right forearm. Specimen Type->Body Fluid Resulting Lab: [facility] MICROBIOLOGY [address] [place] [address] PH: [phone] Resulting Lab: [facility] MICROBIOLOG[facility] [address] [place] [address] PH: [phone] Resulting Lab: [facility]CRO[facility]OLOG[facility] [address] [place] [address] PH: [phone] Resulting Lab: [facility]CRO[facility] [address] [place] [address] PH: [phone] Resulting Lab: [facility] MICROBIOLOG[facility] [address] [place] [address] PH: [phone] Resulting Lab: [facility]CRO[facility]OLOG[facility] [address] [place] [address] PH: [phone] Kenyon Panchal MD LAB - MICROBIOLOGY O RDERABLES [address] [phone] * CULTURE AEROBIC (03/13/2017 8:16 AM PICTURES EDITOR) Only the most recent of9 resultswithin the time period is included. Culture Aerobic No Growth [facility] Gram Stain light White Blood Cells [facility] Gram Stain No Organism Seen [facility] Fluid specimen (specimen) 03/13/2017 8:16 AM PICTURES EDITOR 03/13/2017 9:13 AM PICTURES EDITOR Narrative [facility] - 03/17/2017 8:17 AM PICTURES EDITOR Post irrigation of right forearm. Specimen Type->Body Fluid Resulting Lab: [facility] MICROBIOLOG[facility] [address] [place] [address] PH: [phone] Resulting Lab: [facility] MICRO[facility]OLOG[facility] [address] [place] [address] PH: [phone] Kenyon Panchal MD LAB - MICROBIOLOGY O RDSEABLES Performing Organization Address City/[facility]/ZIP Co de Phone Number [facility] [address] [place] [address], [facility] [phone] * CULTURE AFB+SMEAR (03/13/2017 8:16 AM PICTURES EDITOR) Only the most recent of5 resultswithin the time period is included. Culture Acid Fast Bacilli No growth of Acid Fast bacilli [facility] AFB Smear No acid fast bacilli seen [facility] Fluid specimen (specimen) 03/13/2017 8:16 AM PICTURES EDITOR 03/13/2017 9:13 AM PICTURES EDITOR Narrative [facility] - 04/24/2017 8:47 AM PICTURES EDITOR Post irrigation of right forearm. Specimen Type->Body Fluid Resulting Lab: [facility]CRO[facility] [address] [place] [address] PH: [phone] Resulting Lab: [facility] MICRO[facility]OLOG[facility] [address] [place] [address] PH: [phone] Resulting Lab: [facility]CRO[facility] [address] [place] [address] PH: [phone] Resulting Lab: [facility]CRO[facility] [address] [place] [address] PH: [phone] Resulting Lab: [facility] MICRO[facility]OLOG[facility] [address] [place] [address] PH: [phone] Resulting Lab: [facility]CRO[facility] [address] [place] [address] PH: [phone] Kenyon Panchal MD LAB - MICROBIOLOGY O RDERARANGEL [facility] [address] [place] [address], [facility] [phone] * CULTURE ANAEROBE (03/13/2017 8:16 AM PICTURES EDITOR) Only the most recent of7 resultswithin the time period is included. Culture Anaerobic No Growth Anaerobes. [facility] Fluid specimen (specimen) 03/13/2017 8:16 AM PICTURES EDITOR 03/13/2017 9:13 AM PICTURES EDITOR Narrative [facility] - 03/20/2017 12:25 PM PICTURES EDITOR Post irrigation of right forearm. Specimen Type->Body Fluid Resulting Lab: [facility]CRO[facility] [address] [place] [address] PH: [phone] Kenyon Panchal MD LAB - MICROBIOLOGY O LAWANDA Performing Organization Address City/[facility]/[place] [address], [facility] [phone] * CULTURE BLOOD (03/13/2017 3:06 AM PICTURES EDITOR) Only the most recent of2 resultswithin the time period is included. Culture Blood No Growth at 5 days [facility] Blood specimen (specimen) (Venous, Peripheral) 03/13/2017 3:06 AM PICTURES EDITOR 03/13/2017 3:15 AM PICTURES EDITOR [facility] - 03/18/2017 7:30 AM PICTURES EDITOR Resulting Lab: [facility]CRO[facility] [address] [place] [address] PH: [phone] Kenyon Panchal MD LAB - MICROBIOLOGY O LAWANDA Performing Organization Address [facility] [place] [address], [facility] [phone] * (ABNORMAL) CULTURE TISSUE+GRAM STAIN (03/10/2017 12:49 PM PICTURES EDITOR) Culture Tissue STAPHYLOCOCCUS EPIDERMIDIS(A) [facility] Comment:Light Growth Staphyl ococcus Epidermidis Gram Stain Moderate Red Blood Cells [facility] Gram Stain Rare White Blood Cells [facility] Gram Stain No Organism Seen [facility] Tissue TISSUE SPECIMEN / Unknown 03/10/2017 12:49 PM PICTURES EDITOR 03/10/2017 2:57 PM PICTURES EDITOR [facility] - 03/13/2017 12:19 PM PICTURES EDITOR Specimen Type->Tissue Resulting Lab: [facility] [address] [place] [address] PH: [phone] Organism Antibiotic Method Susceptibility Staphylococcus epidermidis Clindamycin SUSCEPTIBILITY >=4: Resistant Staphylococcus epidermidis Erythromycin SUSCEPTIBILITY >=8: Resistant Staphylococcus epidermidis Gentamicin SUSCEPTIBILITY <=0.5: Sensitive Staphylococcus epidermidis Levofloxacin SUSCEPTIBILITY <=0.12: Sensitive Staphylococcus epidermidis Oxacillin SUSCEPTIBILITY >=4: Resistant Staphylococcus epidermidis Trimethoprim- sulfamethox azole SUSCEPTIBILITY 160: Resistant Staphylococcus epidermidis Vancomycin SUSCEPTIBILITY 1: Sensitive Kenyon Panchal MD LAB - MICROBIOLOGY O RDERABLES Performing Organization Address City/[facility]/ZIP Co de Phone Number [address] [phone] * HCG URINE QUALITATIVE (03/10/2017 4:04 AM PICTURES EDITOR) Test Urine Negative Negative [facility] Urine specimen (specimen) 03/10/2017 4:04 AM PICTURES EDITOR 03/10/2017 4:21 AM PICTURES EDITOR Kenyon Panchal MD LAB - URINALYSIS ORD ERABLES Performing Organization Address [facility] de Phone Number [address] [phone] * HEMOGLOBIN A1C (03/09/2017 6:08 PM PICTURES EDITOR) Hemoglobin A1c 5.9 4.4 - 6.3 % [facility] Estimated Average Glucose 123 mg/dL [facility] Comment: HbA1c Interpretation: Treatment target values recommended by ADA and other clinical organizations should be used to evaluate metabolic control in patients. Treatment Target Values: Normal : < 5.7% Pre-diabetes: 5.7-6.4% Diabetes: Equal to or greater than 6.5% Reference: [place] Standards of Care in Diabetes -2014 In patients 70 years and older consider HbA1c target range of 7.0-7.5% Reference: Diabetes Mellitus in Older People: Position Statement on behalf of the International Association of Gerontology and Geriatrics (IAGG), the Diabetes Working Republican for Older People (EDWPOP), and the International Task Force of Experts in Diabetes. Kofi Marie et al. J [employer]. 2012 Test results diagnostic [...] BLOOD SPECIMEN / Unknown 03/09/2017 6:08 PM PICTURES EDITOR 03/09/2017 6:26 PM PICTURES EDITOR Kenyon Panchal MD LAB - CHEMISTRY TIKA JORDAN Performing Organization Address City/[facility]/ZIP Co de Phone Number [address] [phone] * HCG BETA BLOOD QUANTITATIVE (02/17/2017 4:10 AM PICTURES EDITOR) Beta-hCG Total Quantitative <2 <5 mIU/mL [facility] Comment: HCG Numeric Result Interpretation: Non- Females: < 5 mIU/mL Post-Menopausal Females: < 7 mIU/mL Blood specimen (specimen) BLOOD SPECIMEN / Unknown 02/17/2017 4:10 AM PICTURES EDITOR 02/17/2017 4:25 AM PICTURES EDITOR Kenyon Panchal MD LAB - CHEMISTRY TIKA JORDAN Performing Organization Address [facility] Co de Phone Number [address] [phone] * (ABNORMAL) DIFFERENTIAL MANUAL (02/16/2017 6:55 PM PICTURES EDITOR) WBC (corrected for NRBC) 12.6 10 3/uL [facility] Total Cell Count 100 [facility] Neutrophils Absolute Manual 10.96(H) 1.60 - 7.00 10 3/uL [facility] Comment:(BANDS+SEGS) x WBC = NEUT # (ANC) Lymphocyte Absolute Manual 1.13 0.80 - 2.90 10 3/uL [facility] Monocytes Absolute Manual 0.50 0.14 - 0.66 10 3/uL [facility] Band % Manual 4 0 - 10 % [facility] Neutrophil % Manual 83(H) 30 - 60 % [facility] Lymphocyte % Manual 9(L) 20 - 45 % [facility] Monocytes % Manual 4 2 - 10 % [facility] Platelet Estimate Adequate Adequate [facility] Anisocytosis Few(A) None [facility] Poikilocytes Few(A) None [facility] Blood specimen (specimen) BLOOD SPECIMEN / Unknown 02/16/2017 6:55 PM PICTURES EDITOR 02/16/2017 6:56 PM PICTURES EDITOR Kenyon Panchal MD LAB - HEMATOLOGY ORD ERABLES Performing Organization Address City/[facility]/ZIP Co de Phone Number [facility] [address] [phone] * CARDIAC RHYTHM STRIP ORDER (02/09/2017 1:34 AM PICTURES EDITOR) Narrative 02/09/2017 1:34 AM PICTURES EDITOR Ordered by an unspecified provider. Scanned Document CARDIAC SERVICES ORD ERABLES * HCG URINE QUALITATIVE - POCT (IP) BEAKER (02/06/2017 7:42 AM PICTURES EDITOR) HCG Qual Urine Negative Negative [facility] POCT TESTING QC Verified Yes Yes [facility] POC T TESTING Urine URINE / Unknown 02/06/2017 7 :42 AM PICTURES EDITOR Ninoska Woodall MD LAB - POINT OF CARE ORDERABLES Performing Organization Address City/[facility] [facility] Co de Phone Number [facility] POCT TESTING [address] [phone] * GROSS + MICRO EXAM (08/31/1994 3:26 PM CDT) Result CASE NUMBER [id number] Comment: ORDERING PHYSICIAN ARA KEBEDE SPECIMEN TYPE Placenta-/cord Preop Dx Delivery of live male infant by repeat C-Sect. Hx of recurrent drug [...] abnormalities on cut section. Samples are submitted. ([facility])clw BLOCKS A - Umbilical cord / [...] LAB - PATHOLOGY/C YTOLOGY ORDERABLES Care Teams Autocad Detailer Relationship Specialty [place] [address] [place] [address] PCP - General Family Medicine 02/09/22 Meme Samuel, RN Registered Nurse 02/06/17 Adelina Trinidad DO [address] [facility] [address] [place] [phone] Rheumatology 07/07/22
--- OUTSIDE RECORDS SUMMARY | 2024-05-02 07:56 | XMS_ITS | Clinical Summary ---
Author Organization [facility] Address [address] [facility] [place] [address] Care Team Providers Care Poultry Sexer Name Role Phone Meme Samuel RN Unavailable Unavailable mOar Delarosa MD, [facility] Primary Care Prov ider Adelina Trinidad DO Unavailable Source Comments [facility],non-owned Affiliates and Associated Physician Practices is amultiple site organization consisting of ambulatory clinics and hospital sitesin [place], [place], [place] and [place]. This disclosure is being madepursuant to the Care Everywhere program and may not contain all information available regarding this patient. Last updated 17.[facility] Allergies Active Allergy Reactions Criticality Noted Date [...] naloxone HCl (Narcan) 4 MG/0.1ML nasal spray [place] 1 (one) spray into the nose as [...] Oral DAILY, Reported on 08/25/2022 HYDROcodone-acetami nophen ([place]) 10-325 MG tabletIndications:C hronic pain disorder Take [...] TIME OR BEDTIME 01/27/2023 Active HYDROcodone-acetami nophen ([place]) 5-325 MG tablet Take 1 (one) tablet [...] Description 02/15/2024 Refill [facility] [address] [facility] [address] [place] [address] Kirsten Hadley APRN-SUSAN Refill Request from Last [...] Sex Assigned at Female 01/11/2022 4:28 AM RELATIONSHIP CONSULTANT Gender Identity Female 01/11/2022 4:28 AM RELATIONSHIP CONSULTANT Sexual Orientation Straight 01/11/2022 4: 28 AM RELATIONSHIP CONSULTANT Last Filed Vital Signs Vital Sign Reading [...] complete this topic MENINGOCOCCAL (Group B) VACCINE SHARED DECISION-MAKING Aged Out No longer eligible based on patient's age to complete this topic MENINGOCOCCAL GROUPS A/C/Y/W VACCINE Aged Out No longer eligible based on patient's age to complete this topic Procedures Procedure Name Priority Date/Time Associated Diagnosis Comments COMPREHENSIVE METABOLIC PANEL Routine 11/14/2022 4:59 PM CDT Diffuse disease of connective tissue (HCC) HEPATITIS SCREEN ACUTE ([facility]) Routine 07/06/2022 11:34 AM CDT Positive KETTY (antinuclear antibody) Rash Polyarthralgia Fatigue, unspecified type ENDOSCOPY, COLON, DIAGNOSTIC Routine 12/31/2021 10:08 AM RELATIONSHIP CONSULTANT Abdominal pain, LLQ (left lower quadrant) Constipation, unspecified constipation type HEMOGLOBIN A1C Routine 03/09/2017 6:08 PM RELATIONSHIP CONSULTANT from Last 3 Months or Most Recently [...] mL/min/1.7 3 m2 11/14/2022 5:30 PM CDT [facility] Blood BLOOD SPECIMEN / Unknown Lab Venipuncture / Unknown 11/14/2022 4:59 PM CDT 11/14/2022 5:08 PM CDT Adelina Trinidad DO LAB - CHEMISTRY TIKA JORDAN [facility] Organization Address City/State/ZIP Co de Phone Number [facility] [address] [place] [address] * HEPATITIS SCREEN ACUTE ([facility]) (07/06/2022 11:34 [...] Resulting Agency Comment Lab [facility] performed [facility]: [facility] [address] [facility] [phone] Adelina Trinidad DO LAB - [facility]MISTR[facility] [address] [place] [address] * ENDOSCOPY, COLON, DIAGNOSTIC (12/31/2021 10:08 AM RELATIONSHIP CONSULTANT) Report Endoscopy POC _ Patient Name: Dipika Esteveznasima Procedure Date: 12/31/2021 10:08 AM Date of [...] for surveillance. Procedure Code(s): --- Professional --- 86414, Colonoscopy, flexible; with removal of tumor(s), polyp(s), or other lesion(s) by snare technique --- Technical --- 17854, Colonoscopy, flexible; with removal of tumor(s), polyp(s), or other lesion(s) by snare technique Diagnosis Code(s): --- Professional --- K64.4, Residual hemorrhoidal skin tags K63.5, Polyp of colon R10.12, Left upper quadrant pain --- Technical --- K64.4, Residual hemorrhoidal skin tags K63.5, Polyp of colon R10.12, Left upper quadrant pain CPT copyright 2019 [place] [employer]. All rights reserved. The codes documented in this report are preliminary and upon photoengraving proofer review may be revised to meet current compliance requirements. Dr. Alivia Kline MD Malcom Kline MD 12/31/2021 10:36:33 AM This report has been signed electronically. Number of Addenda: 0 Note Initiated On: 12/31/2021 10:08 AM Procedure Date: 12/31/2021 10:08:52 AM Scope Withdrawal Time: 0 hours 9 minutes 30 seconds [facility] 12/31/2021 10:0 8 AM RELATIONSHIP CONSULTANT Malcom Kline MD GI PROCEDURE ORDERAB LES [facility] * HEMOGLOBIN A1C (03/09/2017 6:08 PM RELATIONSHIP CONSULTANT) Hemoglobin A1c 5.9 4.4 - 6.3 % [facility] Estimated Average Glucose 123 mg/dL [facility] Comment: HbA1c Interpretation: Treatment target values recommended by ADA and other clinical organizations should be used to evaluate metabolic control in patients. Treatment Target Values: Normal : < 5.7% Pre-diabetes: 5.7-6.4% Diabetes: Equal to or greater than 6.5% Reference: [place] [employer] Standards of Care in Diabetes -2014 In patients 70 years and older consider HbA1c target range of 7.0-7.5% Reference: Diabetes Mellitus in Older People: Position Statement on behalf of the International Association of Gerontology and Geriatrics (IAGG), the Diabetes Working Alliance Party for Older People (EDWPOP), and the International Task Force of Experts in Diabetes. Kofi Marie et al. J [place] [employer]. 2012 Test results diagnostic [...] BLOOD SPECIMEN / Unknown 03/09/2017 6:08 PM RELATIONSHIP CONSULTANT 03/09/2017 6:26 PM RELATIONSHIP CONSULTANT Kenyon Panchal MD LAB - CHEMISTRY TIKA JORDAN [facility] Organization Address City/State/ZIP Co de Phone Number [facility] [address] [place] [address] from Last 3 Months or Most Recently Relevant to Health Maintenance Care Teams Poultry Sexer Relationship Specialty [place] [address] [place] [address] PCP - General Family Medicine 02/09/22 Meme Samuel, RN Registered Nurse 02/06/17 Adelina Trinidad DO [address] [facility] [address] [place] [phone] Rheumatology 07/07/22
--- OUTSIDE RECORDS SUMMARY | 2024-05-02 07:56 | XMS_ITS | Referral Summary ---
Author Organization [facility] Address [address] [address] Care Team Providers Care House Builder Name Role Phone Meme Samuel RN Unavailable Unavailable Omar Delarosa MD, Raymond Wantagh Primary Care Prov ider Adelina Trinidad DO Unavailable Source Comments [facility],non-owned Affiliates and Associated Physician Practices is amultiple site organization consisting of ambulatory clinics and hospital sitesin [place], [place], [place] and [place]. This disclosure is being madepursuant to the Care Everywhere program and may not contain all information available regarding this patient. Last updated 17.[facility] Encounters Date Type Department Care Team Description 02/15/2024 Refill [facility] [address] [place] [address] Kirsten Hadley APRN-CNP Refill Request from Last [...] naloxone HCl (Narcan) 4 MG/0.1ML nasal spray [place] 1 (one) spray into the nose as [...] Oral DAILY, Reported on 08/25/2022 HYDROcodone-acetami nophen ([place]) 10-325 MG tabletIndications:C hronic pain disorder Take [...] TIME OR BEDTIME 01/27/2023 Active HYDROcodone-acetami nophen ([place]) 5-325 MG tablet Take 1 (one) tablet [...] Sex Assigned at Female 01/11/2022 4:28 AM SECTION LEADER SCREEN PRINTING Gender Identity Female 01/11/2022 4:28 AM SECTION LEADER SCREEN PRINTING Sexual Orientation Straight 01/11/2022 4: 28 AM SECTION LEADER SCREEN PRINTING Last Filed Vital Signs Vital Sign Reading [...] ENDOSCOPY, COLON, DIAGNOSTIC Routine 12/31/2021 10:08 AM SECTION LEADER SCREEN PRINTING Abdominal pain, LLQ (left lower quadrant) Constipation, unspecified constipation type HEMOGLOBIN A1C Routine 03/09/2017 6:08 PM SECTION LEADER SCREEN PRINTING from Last 3 Months or Most Recently Relevant to Health Maintenance Results * (ABNORMAL) COMPREHENSIVE METABOLIC PANEL (11/14/2022 4:59 PM CDT) [facility] Glucose 82 70 - 105 mg/dL 11/14/2022 [...] LAB - CHEMISTRY ORDE JULIAN [facility] [address] [place], [place] [id number] * HEPATITIS SCREEN ACUTE ([facility]) (07/06/2022 11:34 [...] Resulting Agency Comment Lab Testing performed at: [facility] [address] [phone] Adelina Trinidad DO LAB - CHEMISTRY [employer] JULIAN Performing Organization Address City/[facility]/ZIP Co de Phone Number [facility] INSURANCE BILL [address] [place] [address] * ENDOSCOPY, COLON, DIAGNOSTIC (12/31/2021 10:08 AM SECTION LEADER SCREEN PRINTING) Report Endoscopy POC _ Patient Name: Dipikarahel [...] for surveillance. Procedure Code(s): --- Professional --- 33179, Colonoscopy, flexible; with removal of tumor(s), polyp(s), or other lesion(s) by snare technique --- Technical --- 46436, Colonoscopy, flexible; with removal of tumor(s), polyp(s), or other lesion(s) by snare technique Diagnosis Code(s): --- Professional --- K64.4, Residual hemorrhoidal skin tags K63.5, Polyp of colon R10.12, Left upper quadrant pain --- Technical --- K64.4, Residual hemorrhoidal skin tags K63.5, Polyp of colon R10.12, Left upper quadrant pain CPT copyright 2019 [place] [employer]. All rights reserved. The codes documented in this report are preliminary and upon rigger supervisor review may be revised to meet current compliance requirements. Dr. Alivia Kline MD Malcom Kline MD 12/31/2021 10:36:33 AM This report has been signed electronically. Number of Addenda: 0 Note Initiated On: 12/31/2021 10:08 AM Procedure Date: 12/31/2021 10:08:52 AM Scope Withdrawal Time: 0 hours 9 minutes 30 seconds [facility] 12/31/2021 10:0 8 AM SECTION LEADER SCREEN PRINTING Malcom Kline MD GI PROCEDURE ORDERAB LES Performing Organization Address City/State/[facility] Co de Phone Number [facility] * HEMOGLOBIN A1C (03/09/2017 6:08 PM SECTION LEADER SCREEN PRINTING) Hemoglobin A1c 5.9 4.4 - 6.3 % [facility] Estimated Average Glucose 123 mg/dL [facility] Comment: HbA1c Interpretation: Treatment target values recommended by ADA and other clinical organizations should be used to evaluate metabolic control in patients. Treatment Target Values: Normal : < 5.7% Pre-diabetes: 5.7-6.4% Diabetes: Equal to or greater than 6.5% Reference: [place] [employer] Standards of Care in Diabetes -2014 In patients 70 years and older consider HbA1c target range of 7.0-7.5% Reference: Diabetes Mellitus in Older People: Position Statement on behalf of the International Association of Gerontology and Geriatrics (IAGG), the Diabetes Working Constitution Party for Older People (EDWPOP), and the International Task Force of Experts in Diabetes. Kofi Marie, et al. J [place] [employer]. 2012 Test results diagnostic [...] BLOOD SPECIMEN / Unknown 03/09/2017 6:08 PM SECTION LEADER SCREEN PRINTING 03/09/2017 6:26 PM SECTION LEADER SCREEN PRINTING Kenyon Panchal MD LAB - CHEMISTRY TIKA JORDAN [facility] [address] [phone] from Last 3 Months or Most Recently Relevant to Health Maintenance Care Teams House Builder Relationship Specialty [place] [address] [place] [phone] PCP - General Family Medicine 02/09/22 Meme Samuel, RN Registered Nurse 02/06/17 Adelina Trinidad DO [address] [facility] [address] [place] [phone] Rheumatology 07/07/22
--- OUTSIDE RECORDS SUMMARY | 2024-05-02 07:56 | XMS_ITS | Data Portability ---
Author Organization [facility] NINGLong [facility] Address [address] [facility] [place] [address] Care Team Providers Care Skein Washer Name Role Phone JOY PICKARD Bilingual Hr Generalist Assessment Encounter Date Assessment Date Assessment LastModified by Organization Details LastModified Time 08/25/2020 08/25/2020 Verbal consent for telephone visit was obtained and phone call lasted for approximately 15 min. Not available 08/25/2020 16:27:55 Plan of Treatment Reminders Order Date Submit Date Provider Last Modified By Organization Details Last Modified Time Details Appointments None recorded. Lab HIV 1 + 2, meaningfu l use set 2024 025 [employer] [facility], [address] [place] [address], [address], 5 09:49:06 hepatitis B surface Ab, qualitati ve, serum 2024 025 [employer] [facility], [address] [place] [address], [address], 5 09:49:06 HBsAg (hepatiti s B surface Ag), EIA, serum 2024 025 [facility], [address] [place] [address], [address], 5 09:49:06 RPR (rapid plasma reagin), serum 2024 025 [employer] [facility], [address] [place] [address] [place], [address], 5 09:49:06 Hepatitis C IgG Ab, qual, serum 2024 025 [employer]em[employer]ma [facility], [address] [facility], [facility], [place], [address], 5 09:49:06 vaginal pathogens panel, ALMITA+probe , vaginal fluid 2024 025 DANIELLE [facility], [address] [facility], [address], [place], [address], 06:37:27 urinalysi s, dipstick 2021 022 DANIELLE In-Office Order, Internal Use Only DO Not Attach Compendium DO Not Attach Compendium, Do Not Delete/merge, [id number] 15:34:00 culture, urine 2021 022 DANIELLE [facility], [address] [facility], [facility], [place], [address], 11:55:43 HbA1c (hemoglob in A1c), blood 2021 022 In-Office Order, Internal Use Only DO Not Attach Compendium DO Not Attach Compendium, Do Not Delete/merge, [id number] 11:55:36 HbA1c (hemoglob in A1c), blood 2020 022 DANIELLE [facility], [address] [facility], [facility], [place], [address], 03:10:52 albumin/c reatinine , mass ratio, urine 2020 022 DANIELLE [facility], [address] [facility], [facility], [place], [address], 03:10:52 CMP, serum or plasma 2020 022 DANIELLE [facility], [address], [place], [address], 03:10:53 CBC 2020 022 DANIELLE [facility], [address], [place], [address], 03:10:53 lipid panel, serum 2020 022 DANIELLE [facility], [address], [place], [address], 03:10:53 HbA1c (hemoglob in A1c), blood 2020 021 DANIELLE [facility], [address], [place], [address], 15:12:35 albumin/c reatinine , mass ratio, urine 2020 021 DANIELLE [facility], [address], [place], [address], 15:12:34 CMP, serum or plasma 2020 021 DANIELLE [facility], [address], [place], [address], 15:12:34 CBC w/ auto diff 2020 021 DANIELLE [facility], [address], [place], [address], 15:12:34 lipid panel, serum 2020 021 DANIELLE [facility], [address], [place], [address], 15:12:35 CBC 2020 021 DANIELLE [facility], [address], [place], [address], 1 15:12:34 Referral orthopedi c surgeon referral - Please contact patient to schedule appointme nt. Thank you 2020 DANIELLE Hernandez PA-C, [address] [facility] , [address], [place], [address], 2 11:53:46 pain managemen t referral - Please contact patient to schedule appointme nt. Thank you 2020 tonja Ferris MD, [address] [facility], [address], [place], [address], 2 16:43:03 gastroent erologist referral - Please call patient to schedule - Thank you 2020 DANIELLE Barber MD, [address] [facility] [address], [address], [place], [address], 15:14:17 Procedures None recorded. Surgeries None recorded. Imaging None recorded. Medication Orders Macrobid 100 mg capsule 2021 [facility] #[id number], [address] [place], [address], 2 08:26:19 acetamino phen 300 mg-codein e 30 mg tablet 2021 [facility] #[id number], 1 [place], [address], 5 14:03:49 clobetaso l 0.05 % scalp solution 2021 [facility] #[id number], 1 [place], [address], 5 14:04:30 diclofena c sodium 75 mg tablet,de layed release 2021 [facility] [address] [place], [address], 2 11:55:45 pregabali n 50 mg capsule 2021 022 [facility]68[facility], [address] [place], [address], 2 14:18:41 losartan 100 mg tablet 2021 022 [email or web address] [facility] #[id number], [address] [place], [address], 5 14:06:57 tramadol 50 mg tablet 2020 021 [facility] [address] [place], [address], 2 14:16:27 omeprazol e 20 mg capsule,d elayed release 2020 021 [facility], [address] [place], [address], 1 15:22:41 omeprazol e 20 mg capsule,d elayed release 2020 021 [facility], [address] [place], [address], 1 15:57:11 Cipro 500 mg tablet 2020 021 [email or web address] [facility]6833, [address] [place], [address], 14:43:28 Flagyl 500 mg tablet 2020 021 [id number] [facility]68[facility], [address] [place], [address], 1 14:44:43 tramadol 50 mg tablet 2020 021 [facility] #[id number], [address] [facility], [place], [address], 14:16:27 Patient TargetsNo targets recorded. Patient Instructions Encounter Date Encounter Id Patient Instructions Last Modified By Organization Details Last Modified Time 08/25/2020 [id number] sore throat: car e instructions Not available 08/25/2020 16:24:57 Take all antibio tics prescribed to you. If any fever or increase in pain, call/return to office. Not available 08/25/2020 16:28:01 f/u 2 months DWP barriers to care: none Not available 08/25/2020 16:28:14 10/27/2020 [id number] diverticulosis diet Not avail able 10/27/2020 23:18:06 [...] care: none Not available 10/27/2020 16:00:10 01/29/2021 [id number] diverticulosis diet Not avail able 01/29/2021 15:22:20 [...] care: none Not available 01/29/2021 14:59:09 05/12/2021 [id number] painful urinatio n (dysuria): care instructions Not [...] Not available 05/12/2021 11:56:00 Reason for Referral [employer]inisher Referral for Diverticulosis of colon Please call [...] [facility] ([facility] Only) [address], [place], [address], 06/03/2021 06:33:45 05/13/19 22 05/12/2021 urina lysis , dipst ick Leukocytes Negati ve Not Available In-Office Order Internal Use Only DO Not Attach Compendium DO Not Attach Compendium, Do Not Delete/merge, [id number] 05/12/2021 11:46:42 05/13/19 22 05/12/2021 urina lysis [...] 05/12/2021 urina lysis , dipst ick Specific [place] 1.010 Not Available In-Off ice Order Internal [...] - 2 score abnormal Not Available [facility] ([facility]) [address] [place], [address], 03/21/2024 06:37:27 03/19/1903/20/2024 NUA B VAGIN ITIS PLUS (VG+) bvab 2 HIGH - 2 score abnormal Not Available [facility] ([facility]) [address] [facility], [place], [address], 03/21/2024 06:37:27 03/19/1903/20/2024 [facility]G+) megasphaera [...] ermin ate for BV. Addit ional clini ramob data shoul d be evalu ated to estab elian a diagn osis. Total score 3-6: Indic ates the prese nce of BV. Not Available [facility] ([facility]) [address] [place], [address], 03/21/2024 06:37:27 03/19/1903/20/2024 NUA B VAGIN ITIS PLUS (VG+) luis albicans, ALMITA NEGATI VE negati ve Not Available [facility] ([facility]) [address] [place], [address], 03/21/2024 06:37:27 03/19/19 25 03/20/2024 NUA B VAGIN ITIS PLUS (VG+) luis glabrata, ALMITA NEGATI VE negati ve Not Available [facility] ([facility]) [address] [place], [address], 03/21/2024 06:37:27 03/19/1903/21/2024 NUA B VAGIN ITIS PLUS (VG+) trich vag by ALMITA NEGATI VE negati ve Not Available [facility] ([facility]) [address] [facility], [place], [address], 03/21/2024 06:37:27 03/19/19 25 03/21/2024 NUA B VAGIN ITIS PLUS (VG+) chlamydia trachomatis, ALMITA NEGATI VE negati ve Not Available [facility] ([facility]) [address] [facility], [place], [address], 03/21/2024 06:37:27 03/19/1903/21/2024 NUA B VAGIN ITIS PLUS (VG+) neisseria gonorrhoeae, ALMITA NEGATI VE negati ve Not Available [facility] ([facility]) [address] [facility], [place], [address], 03/21/2024 06:37:27 07/07/19 22 07/03/2021 MAMMO , scree nic, digit al, bilat eral No observ ation record ed. [email or web address] [facility] [address], [place], [address], 07/07/2021 10:31:05 Result Notes None recorded. Problems Name Problem SNOMED Code Status Onset Date Resolution Date Notes Provider Name and Address Organization Details Recorded Time Lumbago with sciatica 071218326 Active 2015 Not Available [facility] 0 10:24:13 Diabetic peripher al neuropat hy 587028999 Active 2015 Not Available [facility] 0 10:24:13 Neck pain 84034383 Active 2016 Not Available [facility] 0 10:24:13 Cervical radiculo alistair 96447027 Active 2015 Not Available [facility] 0 10:24:13 Disorder of wrist 987132873 Active 2016 Not Available [facility] 0 10:24:13 Meralgia paresthe bora 40568034 Active 2015 Not Available [facility] 0 10:24:14 Anxiety 87083428 Completed 201506/03/2020 Carla Harrell APN, FNP-C Attn: Accounting ,[address] [facility], [place], [address] , [place] 1 15:43:43 Fibromya lgia 682546594 Active 2015 Not Available [facility] 0 10:24:14 Carpal tunnel syndrome of right wrist 08349251126 9108 Active 2016 Not Available [facility] 0 10:24:14 Pronator syndrome 809046050 Active 2016 Not Available [facility] 0 10:24:14 Lumbago with sciatica 366724622 Active 2017 Not Available [facility] 0 10:24:13 Anxiety disorder 592783774 Active 2017 Not Available [facility] 0 10:24:13 Postoper ative infectio n 83270527 Completed 201706/03/2020 Carla Harrell APN, FNP-C Attn: Accounting ,[address] [facility], [place], [address] , [place] 1 15:44:05 Depressi ve disorder 79274765 Active 2020 Carla Harrell APN, FNP-C Attn: Accounting ,[address] [facility], [place], [address] , [place] 1 15:01:45 Gastroes ophageal reflux disease without esophagi tis 126248570 Active 2020 Carla Harrell APN, FNP-C Attn: Accounting ,[address] [facility], [place], [address] , [place] 1 15:50:34 Obesity 302708034 Active 2020 Carla Harrell APN, TELEVISION CABLE INSTALLER-C Attn: Accounting ,[address] [facility], [place], [place], [address] [place] [address] , [place] [facility] 1 15:59:58 Divertic ulosis of colon 294993902 Active 2020 Carla Harrell APN, TELEVISION CABLE INSTALLER-C Attn: Accounting ,[address] [facility], [place], [place], [address] [place] [address] , [place] [facility] 1 23:17:39 Carpal tunnel syndrome of left wrist 33691061405 9102 Active 2020 Carla Harrell APN, TELEVISION CABLE INSTALLER-C Attn: Accounting ,[address] [place], [place], [address] [place] [address] , [facility] 1 15:21:46 Bronchit is 97434787 Completed 02/08/2016 Ximena Ward PA-C Attn: Accounting ,[address] [place], [place], [address] [place] [address] , [facility] 6 14:01:55 Lumbar radiculo alistair 583989745 Active seeing pain mgmt Not Available [facility] 0 10:24:13 Urinary tract infectio us disease 15262714 Completed 02/08/2016 Ximena Ward PA-C Attn: Accounting ,[address] [place], [place], [address] [place] [address] , [place] 6 14:02:43 [facility] hyperten malvin 93985671 Active Not Available [facility] 0 10:24:13 Type 2 diabetes mellitus 83516983 Active Not Available [facility] 0 10:24:13 Hyperlip idemia 99137715 Active Not Available [facility] 0 10:24:14 Neuropat hy due to diabetes mellitus 333107547 Active Not Available [facility] 0 10:24:13 Degenera tion of lumbar interver tebral disc 14893009 Active 08/2015 Lumbar injectio n from Dr. Pollock Not Available [facility] 0 10:24:13 Tobacco user 593971403 Active Not Available [facility] 0 10:24:13 Schizoph grace 73394014 Active Not Available [facility] 0 10:24:13 Bipolar disorder 38187552 Active Not Available [facility] 0 10:24:13 Posttrau matic stress disorder 55514420 Active Not Available [facility] 0 10:24:13 Chronic obstruct darlene pulmonar y disease 91582207 Active Not Available [facility] 0 10:24:13 Acute bronchit is 68067487 Completed 02/08/2016 Ximena Ward PA-C Attn: Accounting ,[address] [place], [address] , [facility] - [facility] 6 14:01:46 Morbid obesity 820389932 Active Not Available [facility] 0 10:24:13 Bacteria l vaginosi s 958195159 Completed 02/08/2016 Ximena Ward PA-C Attn: Accounting ,[address] [place], [address] , [place] [facility] 6 14:02:36 Disorder of vitamin D 861037835 Active 2016 Not Available [facility] 0 10:24:13 Tobacco dependen ce syndrome 75189286 Active 2016 Not Available [facility] 0 10:24:13 Pain in right thumb 28106733143 29577 Completed 201601/16/2018 Carla Harrell APN, TELEVISION CABLE INSTALLER-C Attn: Accounting ,[address] [place], [address] , [place] 8 16:47:26 Notes:[facility], mission and discharge is 10/09-DX: Principal Lumbar radiculopathy. Problem Notes None recorded. Procedures Surgical History Date Name Laterality Status Provider Name and Address Organization Details Recorded Time 4 total replacement of hip completed Sahra Parker [place] 03/19/2024 14:14:44 2 Date of Last Mammogram completed Sahra Parker [place] [facility] 03/19/2024 14:10:49 0 Date of Last Pap Smear completed Sahra Parker [place] 11/26/2019 12:09:11 7 Carpal tunnel surgery completed Betsy Saeed [place] - [facility], [facility] 10/14/2019 14:01:56 Tubal Ligation completed Jalyn Dahl [facility] 04/16/2014 11:56:56 Dilation and Curettage completed Jalyn Dahl [facility] 04/16/2014 11:56:56 Caesarean Section completed Sahra Parker [place] [facility] 05/06/2015 10:47:39 Imaging Results Imaging Date Name Status LastModified by Organiz ation Details LastModified Time 07/03/2021 MAMMO, screening, digital, bilateral completed [email or web address] [facility] [address], [place], [address], 07/07/2021 10:31:05 Procedure Notes None recorded. Medical Equipment None Reported. Allergies Allergen ID Allergen Name Allergen Category Reaction Reaction Severity Criticality Documentation Date Start Date Code Code System Note Provider Name and Address Organization Details Recorded Time 434709 meloxicam medicatio n Not available Not available Not available 02/21/20172015 29615 RxNorm Other react ions and sever ities : 'Swel ling - Mild' . Not Available Not Available Not Available 819997 propranol ol medicatio n other moderate Not available 05/12/2021 8787 RxNorm stoma ch pain Not Available Not Available Not Available 7692 Mobic medicatio n other moderate Not available 01/29/2014 49293 9 RxNorm Not Available Not Available Not [...] BY MOUTH THREE TIMES A DAY NEEDED FOR MUSCLE SPASM active Not Available Not Available No t [...] Available nystatin 100,000 unit/mL oral suspensio n TAKE 1 ML ORALLY FOUR TIMES DAILY SWISH AND SWALLOW active Not Available Not Available No t Available gabapenti n 600 mg tablet Take [...] 0.75 % (37.5 mg/5 gram) vaginal gel INSERT 1 APPLICAT ORFUL VAGINALL Y EVERY DAY AT BEDTIME FOR 5 DAYS active Not Available Not Available No t Available lisinopri l 20 mg tablet TAKE 1 [...] Not Available Not Available No t Available omeprazol e 40 mg capsule,d elayed release TAKE 1 CAPSULE BY MOUTH EVERY DAY active Not [...] oxycodone -acetamin ophen 5 mg-325 mg tablet TAKE 1 TABLET BY MOUTH EVERY 6 HOURS NEEDED FOR PAIN active Not Available Not Available No t [...] completed Not Available Not Available Not Available benzonata te 100 mg capsule TAKE [...] HFA 90 mcg/actua tion aerosol inhaler INHALE 1 PUFF BY MOUTH 4 TIMES A DAY NEEDED FOR WHEEZING /SHORTNE SS OF BREATH active Not Available Not Available No t [...] Not Available Not Available Not Available OneTouch Verio test strips USE TO TEST BLOOD SUGAR TWICE A DAY active Not Available Not Available No t Available Latuda 60 mg tablet 12/19 completed [...] DateTime 08/25/2020 165.1 cm Ashutosh Yao [place] [facility] 021 15:56:57 Date Recorded Body height Body mass index (BMI) Body weight Oxygen saturation Oxygen saturation in Arterial blood by Pulse oximetry Heart rate Respiratory rate Body temperature Systolic blood pressure Diastolic blood pressure Provider Name and Address Organization Details Last Updated DateTime 1 165.1 cm 43.5 kg/m2 109761. 36 g 97 % 97 % 86 /min 16 /min 97.8 [degF] 132 mm[Hg] 82 mm[Hg] Ashutosh Yao [place] [facility] 1 15:30:36 Date Recorded Body height Body mass index (BMI) Body weight Oxygen saturation Oxygen saturation in Arterial blood by Pulse oximetry Heart rate Respiratory rate Body temperature Systolic blood pressure Diastolic blood pressure Provider Name and Address Organization Details Last Updated DateTime 1 165.1 cm 41.4 kg/m2 874345. 5 g 96 % 96 % 76 /min 16 /min 97.2 [degF] 136 mm[Hg] 94 mm[Hg] Betsy Saeed [facility] 1 14:53:03 Date Recorded Systolic blood pressure Diastolic blood pressure Provider Name and Address Organization Details Last Updated DateTime 01/29/2021 132 mm[Hg] 88 mm[Hg] Carla Harrell APN, CHON-C Attn: Accounting,[address] [place], [address], [facility] 01/29/2021 15:10:19 Date Recorded Body height Body mass index (BMI) Body weight Oxygen saturation Oxygen saturation in Arterial blood by Pulse oximetry Heart rate Respiratory rate Body temperature Systolic blood pressure Diastolic blood pressure Provider Name and Address Organization Details Last Updated DateTime 2 165.1 cm 40.9 kg/m2 941546. 72 g 94 % 94 % 106 /min 16 /min 97.3 [degF] 130 mm[Hg] 80 mm[Hg] Betsy Saeed [facility] 2 11:43:07 Date Recorded Body height Body mass index (BMI) Body weight Heart rate Oxygen saturation Oxygen saturation in Arterial blood by Pulse oximetry Body temperature Systolic blood pressure Diastolic blood pressure Provider Name and Address Organization Details Last Updated DateTime 5 165.1 cm 35.5 kg/m2 11220.9 7 g 77 /min 97 % 97 % 98.5 [degF] 139 mm[Hg] 87 mm[Hg] Sahra Parker MA [facility] 5 13:56:51 Social History Question Answer Notes LastModified by Organizat ion Details LastModified Time Tobacco Smoking Status Current Every Day Smoker NURYS [place], [facility] 01/29/2014 15:47:01 Do You Have An Advance Directive? No Information not available 04/25/2019 What Is Your Level Of Alcohol Consumption? None [email or web address] Information not available 01/29/2014 Are You Blind Or Do You Have Difficulty Seeing? No Information not available 06/03/2020 Is Blood Transfusion Acceptable In An Emergency? Yes Information not available 05/06/2015 What Is Your [...] available 05/06/2015 What Is Your Occupation? Unemployed [email or web address] Information not available 10/14/2019 Are There Any [...] Anxious, Or Unable To Sleep At Night)? [id number] Information not available 06/03/2020 Do You Use [...] Father Myelodysplas tic syndrome (clinical) 76 77 [email or web address] Not available 14:21:27 Paternal Grandmother Hypertensive disorder [email or web address] Not available 2015 14:47:36 Maternal Grandmother Malignant tumor of pelvis bladde r Not available 10/14/2019 14:19:17 Maternal Grandmother Diabetes mellitus [place] Not available 2015 14:47:36 Paternal Aunt Malignant tumor of breast 68 68 Not available 09/21 14:18:23 Medical History Condition Response Coronary Artery Disease N Other N Atrial Fibrillation N High Blood Pressure Y Breast Cancer N Blood Clots N COPD Y Depression Y Lung Disease N Breast Problem N Anesthesia Complications N [...] mammogram in the last yea r? N Skin Problems Y Eating Disorder N Anemia N Heart Attack (NM) N Ovarian Cancer N Diabetes Y Blood Transfusions N Seizures/Epilepsy N Have you had a colonoscopy in the last 1 0 years? Y Abuse/Domestic Violence N Asthma Y Allergies Y Have you had a PSA blood test in the las t year? N Substance Abuse Y Hepatitis N Heart Disease N Pre-Eclampsia N Osteoporosis N Heart Failure N Gynecological History Statement/Question Response Abnormal Pap [...] virus, quadrivalent, PF 9 completed Not Available [facility] 07/03/2021 19:41:06 Influenza, split virus, quadrivalent, preservative 9 completed Not Available [facility] 07/03/2021 19:41:06 Influenza, split virus, quadrivalent, PF 0 completed Not Available [facility] 07/03/2021 19:41:06 Influenza, split virus, quadrivalent, preservative 0 completed Not Available [facility] 07/03/2021 19:41:06 Pneumococcal conjugate PCV 13 4 completed Not Available [facility] 07/03/2021 19:41:06 Tdap 2 completed Not Available [facility] 07/03/2021 19:41:06 Influenza, split virus, quadrivalent, preservative 7 completed Not Available [facility] 03/09/2019 02:39:52 pneumococcal polysaccharide PPV23 7 completed Not Available [facility] 03/09/2019 02:46:08 Influenza, split virus, quadrivalent, preservative 7 completed Not Available [facility] 03/09/2019 02:34:26 Influenza, split virus, quadrivalent, preservative 8 completed Not Available [facility] 03/09/2019 02:36:00 Influenza, split virus, trivalent, preservative 4 completed Not Available [facility] 03/09/2019 02:51:03 Influenza, split virus, quadrivalent, PF 1 completed Betsymoira barker, [facility] 01/29/2021 16:43:42 Tdap 5 completed JOY PICKARD MD Attn: Accounting,[address] [facility], [place], [address], [facility], [facility] 03/19/2024 14:47:46 Pneumococcal conjugate PCV20, polysaccharide [id number] conjugate, adjuvant, PF 5 completed JOY PICKARD MD Attn: Accounting,[address] [facility], [place], [address], [facility] 03/19/2024 14:47:46 Past Encounters Encounter ID Performer Location Encounter Start Date Encounter Closed Date Diagnosis/Indication Diagnosis SNOMED-CT Code Diagnosis ICD10 Code Diagnosis Note [id number] [facility] (Adult Med) [address] [place] [address] 01/29/2014 14:25:27 01/29/2014 16:34:25 Essential hypertension 92969802 well controlled . Continue Medication s Type 2 berta betes mellitus 78519183 well controlled . Last HBA1C was 5.7 on 09/10/13. Continue medication s. Hyperlipidemia 79460439 continue Simvastati n. Repeat the Lipid panel. Neuropathy due to diabetes mellitus 149312902 Patient takes Gabapentin 600 mg po 4 times daily. Degenerati on of lumbar intervertebral disc 94797942 Following Pain management and . Currently on Hydrocodon e prescribed by . Tobacco user 915139213 a dvised patient to quit smoking. Chronic ob structive pulmonary disease 09410135 continue Symbicort and Proair. Needs infl uenza immunization 179958958 [id number] TEMITOPE Montaño (Adult Med) [address] [place] [address] 04/16/2014 10:41:59 04/16/2014 12:32:17 Bronchitis 43183628 Afebrile.S aturating 98% on room air. will give Z pack. Continue Symbicort and Proair. Advised patient to use otc Mucinex. Advised patient to quit smoking. [id number] Dayana Alexander [facility] (Adult Med) [address] [place] [address] 06/05/2014 09:54:53 06/05/2014 11:15:32 Essential hypertension 44609078 well controlled . Continue Medication s Type 2 berta betes mellitus 08018971 well controlled . Last HBA1C was 6.3 Continue medication s. Hyperlipidemia 33812239 Increase the Simvastati n to 40 mg po daily Repeat the Lipid panel in 4 months. Chronic ob structive pulmonary disease 57394886 continue Symbicort and Ventolin.. Tobacco user [id number] a dvised patient to quit smoking. [id number] [facility] [address] [place] [address] 09/11/2014 14:45:48 09/11/2014 16:52:31 Urinary tract infectious disease 62468269 Starting cipro 250 mg bid for 3 days. Continue fluids. Heat or ice pack prn back discomfort . [id number] [facility] (Adult Med) [address] [facility] [place] [address] 10/06/2014 13:44:51 10/06/2014 14:57:02 Essential hypertension 99478759 well controlled . Continue Medication s Type 2 berta betes mellitus 02131481 well controlled . Last HBA1C was 5.9 Continue medication s. Hyperlipidemia 62622647 LDL well controlled . Continue Simvastati n. Repeat the Lipid panel in 4 months. Chronic ob structive pulmonary disease 90750872 continue Symbicort and Ventolin. Advised patient to quit smoking. Neuropathy due to diabetes mellitus 356628476 Patient is c/o neuropathi c pains in the legs.she is not taking the Neurantin. Patient is waiting to see the new Neurologis t. will refill the Gabapentin . [id number] Cally Parada (Adult Med) [address] [place] [address] 12/15/2014 14:58:22 12/15/2014 15:53:26 Acute bronchitis 12799316 J20.4 Patient to try mucinex otc to loosen secretions . Tessalon perles prn and zpak to start in 3 days if not better. [id number] [facility] [address] [place] [address] 03/10/2015 10:19:15 03/11/2015 15:04:03 Type 2 diabetes mellitus 53206921 E11.9 well controlled . Last HBA1C was 5.7. Continue same medication s. Essential hypertension 53446970 I10 well controlled . Continue Medication s Hyperlipidemia 16563341 E78.2 LDL well controlled . Continue Simvastati n. Chronic ob structive pulmonary disease 97090936 J44.9 continue Symbicort and Ventolin. Advised patient to quit smoking. Morbid obesity 546093092 E66.01 Advised 1500 calories low fat,low cholestero l,low carb diiabetic diet,regul ar exercise and weight reduction. Tobacco user 232787831 Z 72.0 advised patient to quit smoking. [id number] Rachel Parada ([employer]) [address] [place] [address] 05/06/2015 10:24:45 05/06/2015 11:31:24 Gynecologic examination 84982021 Z01.419 Venereal d isease screening 812794897 Z11.3 RTO one week for results. Screening for malignant neoplasm of breast 288150445 Z12.39 Screening for malignant neoplasm of colon 189082524 Z12.11 Has appointmen t in [place] 05/2015. Bacterial vaginosis 4197 33252 N76.0 Diagnosis d/w pt. Rx sent to pharmacy. Instructio dayami discussed. [id number] Rachel Parada ([employer]) [address] [place] [address] 05/20/2015 14:35:33 06/11/2015 17:28:40 Gynecologic examination 38350775 Z01.419 Pap was negative with negative hr-HPV, dwp. Venereal d isease screening 699876986 Z11.3 Vaginal culture was negative for gonorrhea, chlamydia, and trichomona s. STD panel was completely negative. Individual test results d/w pt. [id number] Carla Harrell APN, JJC [facility] (Adult Med) [address] [place] [address] 03/16/2016 10:45:24 03/16/2016 12:17:03 Type 2 diabetes mellitus 76072100 E11.9 Last HBA1C was 5.7. Continue same medication s. Dr David Persaud said she was no longer DM, Lab today. Essential hypertension 32361586 I10 well controlled . Continue propranolo l and losartan Hyperlipidemia 47449674 E78.2 LDL well controlled . Continue Simvastati n. Chronic ob structive pulmonary disease 33991970 J44.9 continue Symbicort and Ventolin. Advised patient to quit smoking. Morbid obesity 461330194 E66.01 advised 1500 calorie low fat, low cholestero l, low carb diet, regular exercise and weight reduction. Lumbar radiculopathy 128 142560 M54.16 please have records sent from Dr Persaud Adult heal th examination 191147227 Z00.00 Well woman exam advised, keep yearly apt. Conjunctivitis 0721384 H 10.9 Tobacco de pendence syndrome 43909315 F17.290 Continue to cut back on smoking. Upper resp iratory infection 20715895 J06.9 [id number] Carla Harrell APN, [facility] (Adult Med) [address] [place] [address] 04/18/2016 14:46:15 04/18/2016 16:07:09 Type 2 diabetes mellitus 03464988 E11.9 Last HbA1C was 5.9. Continue same medication s. Essential hypertension 55377464 I10 well controlled . Continue propranolo l and losartan. Chronic ob structive pulmonary disease 24742847 J44.9 continue Symbicort and Ventolin. Advised patient to quit smoking. Morbid obesity 327818937 E66.01 advised 1500 calorie low fat, low cholestero l, low carb diet, regular exercise and weight reduction. Tobacco de pendence syndrome 97512212 F17.290 Continue to cut back on smoking. Disorder of vitamin D 38 4853867 E56.9 When out of refills of weekly replacemen t, have blood drawn. Administra tion of influenza vaccine 23877207 Z23 [id number] Carla Harrell APN, [facility] (Adult Med) [address] [place] [address] 08/17/2016 15:04:52 08/18/2016 09:15:45 Essential hypertension 85780604 I10 well controlled . Continue propranolo l and losartan. Disorder of vitamin D 38 3765156 E56.9 When out of refills of weekly replacemen t, have blood drawn. Type 2 berta betes mellitus 18135127 E11.9 Last HbA1C was 5.9. Continue ASA, metformin Morbid obesity 231468160 E66.01 advised 1500 calorie low fat, low cholestero l, low carb diet, regular exercise and weight reduction. Bipolar disorder 7336670 4 F31.9 cont medication s as prescribed by Tammy Feliz at [facility]; f/u with [facility] Administra tion of pneumococcal vaccine 86762022 Z23 Tobacco de pendence syndrome 43328026 F17.290 Continue to cut back on smoking. Chronic ob structive pulmonary disease 70318055 J44.9 continue aerospan and Ventolin. Advised patient to quit smoking. Hyperlipidemia 37051355 E78.2 LDL well controlled . Continue Simvastati n. Neuropathy due to diabetes mellitus 238879216 E11.[address] Jaeger. Pain in right thumb 1076 884786 908057 M79.644 fell on 08/11; landed on right hand trying to catch herself; Medication monitoring 39 0661050 Z51.81 Pain contract signed 03/16/16On tramadol-M ay need refill sooner due to increased pain from fall; no refills until drug screen; dwp no more than 4 tramadol per day. will be picking up today; May not refill until 09/07 at earliest if drug screen clean. Lesion of skin of face 9289547067 06 L98.9 [id number] Carla Harrell APN, [facility] (Adult Med) [address] [place] [address] 10/19/2016 14:41:02 10/20/2016 13:52:15 Pain in right thumb 7656957920 362089 M79.644 fell on 08/11; landed on right hand trying to catch herself; reprinted xray orders, KEON Acute maxi llary sinusitis 02169969 J01.00 Conjunctivitis 2073893 H 10.9 [id number] Carla Harrell APN, [facility] (Adult Med) [address] [place] [address] 12/19/2016 14:49:29 12/19/2016 17:54:17 Essential hypertension 67692643 I10 well controlled . Continue propranolo l and losartan. Hyperlipidemia 11076150 E78.2 LDL well controlled . Continue Simvastati n. Type 2 berta betes mellitus 99474940 E11.9 last a1c was 6.0 Chronic ob structive pulmonary disease 73255927 J44.9 Smoking cessation encouraged . Anxiety 77852594 F41.9 short term to help with anxiety state and not sleeping Administra tion of influenza vaccine 56133773 Z23 [id number] Carla Harrell APN, [facility] (Adult Med) [address] [place] [address] 06/20/2017 15:35:33 06/21/2017 08:44:28 Chronic obstructive pulmonary disease 49382723 J44.9 Smoking cessation encouraged . Type 2 berta betes mellitus 50239307 E11.9 last a1c was 6.0, needs labs done Hyperlipidemia 61835647 E78.2 LDL well controlled . Continue Simvastati n. Essential hypertension 03941554 I10 well controlled . Continue propranolo l and losartan. Tobacco de pendence syndrome 44981728 F17.290 Continue to cut back on smoking. Morbid obesity 201976622 E66.01 advised low fat, low cholestero l, low carb diet, regular exercise and weight reduction. Bipolar disorder 3687119 4 F31.9 had medication s prescribed by Tammy Feliz at [facility], was fired due to no shows, was in hospital Schizophrenia 72484011 F 20.[address], not out of medication yet Fibromyalgia 192432987 M 79.7 diagnosed at [place] about 8 years ago, dwp doing yoga or other exercises to help stretch daily Dysuria 12438992 R30.0 Lumbago with sciatica 20 6537938 M54.41 M54.42 may cont with naproxen, seeing pain mgmt for injections [id number] Carla Harrell APN, [facility] (Adult Med) [address] [place] [address] 09/27/2017 11:18:27 09/27/2017 14:25:26 Contact dermatitis 16677031 L25.9 dwp to not use off bug spray as she is likely allergic, will advise to use steroid cream topically to skin Pruritic disorder 101810 002 L29.9 rosa arms and posterior neck, dwo to avoid scratching skinwill provide vistaril to help with itching [id number] Carla Harrell APN, FNP-C [facility] (Adult Med) [address] [place] [address] 11/13/2017 11:41:02 11/13/2017 15:22:16 Administration of influenza vaccine 85532884 Z23 [facility] handout provided Anxiety disorder 4227319 06 F41.9 June cont prn vistaril until seen by psych, needs records release signed Loss of consciousness 41 1937682 R55 pt is poot historian and has unknown seizure hx, possibly had once before in her life; states her friends watched her pass out ; seizure hx with biological sister Dysuria 45867225 R30.0 urine pos for nitrates, blood and leuk, will send for culture as well as treat with [id number] Carla Harrell APN, FNP-C [facility] (Adult Med) [address] [place] [address] 2018 16:12:43 01/17/2018 11:40:22 Type 2 diabetes mellitus 41297049 E11.9 last a1c was 5.6 in 09/2017 Essential hypertension 86606621 I10 well controlled . Continue propranolo l 40 mg tid and losartan. Hyperlipidemia 07740157 E78.2 LDL well controlled . Continue Simvastati n. Disorder of vitamin D 38 3032696 E56.9 recheck Chronic ob structive pulmonary disease 94296364 J44.9 Smoking cessation encouraged . Tobacco de pendence syndrome 86341586 F17.290 Continue to cut back on smoking. Morbid obesity 236610819 E66.01 advised low fat, low cholestero l, low carb diet, regular exercise and weight reduction. Lumbago with sciatica 20 3185890 M54.41 M54.42 cont with pain mgmt as well, may have flexeril prn Screening for malignant neoplasm of colon 710777887 Z12.11 [id number] Carla Harrell APN, FNP-C [facility] (Adult Med) [address] [place] [address] 08/14/2018 11:23:15 08/15/2018 12:54:16 Type 2 diabetes mellitus 53157970 E11.9 last a1c was 5.6 in 09/2017, dwp to cont metformin and needs labs done today Essential hypertension 64851307 I10 stable; Continue propranolo l 40 mg tid and losartan. Hyperlipidemia 95183886 E78.2 needs lab, Continue Simvastati n. Disorder of vitamin D 38 6247652 E56.9 recheck level Chronic ob structive pulmonary disease 03086856 J44.9 Smoking cessation encouraged .cont inhalers- pt not sure which ones she has right now as they were changing so much. Tobacco de pendence syndrome 46530173 F17.290 Continue to cut back on smoking. Morbid obesity 035256850 E66.01 advised low fat, low cholestero l, low carb diet, regular exercise and weight reduction. Lumbago with sciatica 20 8572728 M54.41 M54.42 cont with pain mgmt as well, may have flexeril prn Fibromyalgia 884569792 M 79.7 diagnosed at [facility] about 8 years ago, dwp doing yoga or other exercises to help stretch daily; cont duloxetine 60 mg, 30 mg total of 90 mg Lumbar radiculopathy 128 446971 M54.16 was seeing pain mgmt- needs new referral; no more refills of tramadol; ok for lyrica till seen [id number] Carla Harrell APN, [employer]-[facility] (Adult Med) [address] [place] [address] 01/24/2019 11:46:28 01/25/2019 08:48:26 Type 2 diabetes mellitus 59624082 E11.9 last a1c was 5.6 in 09/2017, dwp to cont metformin and needs labs done today Essential hypertension 47289620 I10 stable; Continue propranolo l 40 mg tid and losartan. Hyperlipidemia 27522087 E78.2 needs lab, Continue Simvastati n. Disorder of vitamin D 38 9214285 E56.9 recheck level Chronic ob structive pulmonary disease 66790731 J44.9 Smoking cessation encouraged .cont inhalers- pt not sure which ones she has right now as they were changing so much. Tobacco de pendence syndrome 30911083 F17.290 Continue to cut back on smoking. Morbid obesity 916806004 E66.01 advised low fat, low cholestero l, low carb diet, regular exercise and weight reduction. Lumbago with sciatica 20 8916348 M54.41 M54.42 cont with pain mgmt as well, may have flexeril prndwp to call if needing new referral for pain mgmt, was getting injections Fibromyalgia M 77.7 diagnosed at [place] several ago, dwp doing yoga or other exercises to help stretch daily; cont duloxetine 60 mg, 30 mg total of 90 mg Lumbar radiculopathy 128 M54.16 was seeing pain mgmt- needs new referral?; no more refills of tramadol; ok for lyrica till seen by pain mgmt Screening for malignant neoplasm of colon 913526606 Z12.11 Stool kit provided with [employer] stock for use. Anxiety disorder F4.28 June cont prn vistaril until seen by psych [id number] Carla Harrell APN, [employer]-[facility] (Adult Med) [address] [place] [address] 04/25/2019 16:01:22 04/29/2019 08:04:02 Type 2 diabetes mellitus 63438994 E11.9 last a1c was 5.6 in 09/2017, dwp to cont metformin and needs labs done today Essential hypertension 30966948 I10 stable; Continue propranolo l 40 mg tid and losartan. Hyperlipidemia 66195042 E78.2 needs lab, Continue Simvastati n. Disorder of vitamin D 38 3719689 E56.9 recheck level Chronic ob structive pulmonary disease 08209053 J44.9 Smoking cessation encouraged .cont inhalers- pt not sure which ones she has right now as they were changing so much. Anxiety disorder F4.9 June cont prn vistaril until seen by psych Tobacco user 566231751 Z 72.0 Smoking cessation encouraged . Lumbar radiculopathy 128 M54.16 was seeing pain mgmt- needs new referral?; no more refills of tramadol; ok for lyrica till seen by pain mgmt Screening for malignant neoplasm of breast 869693714 Z12.39 mammogram order given Health con dition feared but not present 1901071825 58975 Z71.1 pt believes she had a stroke when she was arguing with kids a bout 2 months ago and now believes has droopy face on right and limp on left leg; neuro exam wnl dwp stroke is typically unilateral in nature, may be having more back pain; pt feels her stroke was more because she used to go to [employer] at 10 pm to go shopping and her put her on a budget and she is upset [id number] Carla Harrell APN, [employer] (Adult Med) [address] [place] [address] 08/29/2019 08:20:50 08/30/2019 10:01:10 Type 2 diabetes mellitus 71324581 E11.9 last a1c was 5.8, dwp to cont metformin Essential hypertension 72040823 I10 stable; Continue propranolo l 40 mg tid and losartan. Hyperlipidemia 35041854 E78.2 needs lab, Continue Simvastati n. Chronic ob structive pulmonary disease 79648374 J44.9 Smoking cessation encouraged .cont inhalers- pt not sure which ones she has right now as they were changing so much. Anxiety disorder 0925651 06 F41.9 May cont prn vistaril; Tobacco user 869326053 Z 72.0 Smoking cessation encouraged . Lumbar radiculopathy 128 297457 M54.16 was seeing pain mgmt- needs new referral?; no more refills of tramadol; ok for lyrica till seen by pain mgmt going to [facility], got a shot and goes back next week for second shot Depressive disorder 7848 9007 F32.9 dwp to call [facility] to make apt [id number] Rachel Zeke [facility] ([employer]) [address] [place] [address] 10/14/2019 13:45:25 10/15/2019 07:06:42 Gynecologic examination 88251275 Z01.419 Last pap done 05/06/15 was negative with negative hr-HPV. Pap due. Pap done. Venereal d isease screening 912866281 Z11.3 Telephone visit 2 weeks for results. Screening for malignant neoplasm of breast 941558724 Z12.39 Last 2013. Mother with breast CA Screening for malignant neoplasm of colon 328371527 Z12.11 Needs colonoscop y. Has FH colon CA, breast CA Family his tory of malignant neoplasm of breast in first degree relative 191356272 Z80.3 Mother with both breast and colon CA. Family his tory of cancer of colon 982011364 Z80.0 Mother with both breast and colon CA. Reduced libido 3815585 R 68.82 Male and female sexual response discussed. Pt. will work with to improve sex life. Body mass index 40+ - severely obese 787314126 Z68.41 nutrition and exercise discussed. Cigarette smoker 2134303 7 F17.210 Cessation discussed. Menopausal flushing 1983 34165 N95.1 Inability to give estrogen with smoking due to increased risk of blood clots like a PE, CVA, NM, DVT dwp. If pt. can stop smoking x 6 mo, she could take estrogen, dwp. [id number] Rachel Alanis Tal [facility] ([employer]) [address] [place] [address] 11/26/2019 09:18:48 11/28/2019 11:49:12 Trichomonal vulvovaginitis 41464943 A59.01 Diagnosis d/w pt. Rx sent to pharmacy. Instructio dayami discussed. Pt. instructed to have her partner(s) tested and treated. No sex until negative RAMAKRISHNA. RTO 3 weeks for RAMAKRISHNA. [id number] Carla Harrell APN, [employer]LE[employer] INST[employer]ER-C [facility] (Adult Med) [address] [place] [address] 12/03/2019 08:20:57 12/04/2019 06:39:25 Type 2 diabetes mellitus 50369714 E11.9 last a1c was 5.8, dwp to cont metformin Essential hypertension 02587761 I10 stable; Continue propranolo l 40 mg tid and losartan. Hyperlipidemia 08530064 E78.2 Continue Simvastati n. Chronic ob structive pulmonary disease 35962784 J44.9 Smoking cessation encouraged .cont inhalers-p rn albuterol Anxiety disorder 1549808 06 F41.9 May cont prn vistaril; Tobacco user 649031874 Z 72.0 Smoking cessation encouraged . Lumbar radiculopathy 128 336389 M54.16 was seeing pain mgmt- needs new referral?; no more refills of tramadol; ok for lyrica till seen by pain mgmt going to [facility], Depressive disorder 9770 9007 F32.9 cont with psychiatry [id number] Carla Harrell APN, [facility] (Adult Med) [address] [place] [address] 03/06/2020 09:09:45 03/10/2020 07:33:26 Type 2 diabetes mellitus 87616149 E11.9 last a1c was 6.2, dwp to cont metformin Essential hypertension 98676498 I10 stable; Continue propranolo l 40 mg tid and losartan. Hyperlipidemia 35074733 E78.2 Continue Simvastati n. Chronic ob structive pulmonary disease 54690252 J44.9 Smoking cessation encouraged .cont inhalers-p rn albuterol Anxiety disorder 1067447 06 F41.9 June cont prn vistaril; Tobacco user 123400249 Z 72.0 Smoking cessation encouraged . Lumbar radiculopathy 128 510568 M54.16 was seeing pain mgmt- no more refills of tramadol; ok for lyrica till seen by pain mgmt- going to [facility] Depressive disorder 3548 9007 F32.9 cont with psychiatry Endocrine/ metabolic screening 025424280 Z13.317 [id number] Carla Harrell APN, FNP-C [facility] (Adult Med) [address] [facility] [place] [address] 04/06/2020 08:51:00 04/07/2020 09:08:02 Chronic obstructive pulmonary disease 82789166 J44.9 Smoking cessation encouraged .cont inhalers-p rn albuterol Acute exac erbation of chronic obstructive pulmonary disease 816744840 J44.1 flare triggered by weather, will start medrol dose pack, pt requests cough pills, also rx nebulizer, advised pt to call if not improving Tardive dyskinesia 41261 9007 G24.01 was seeing neuro in [facility] and would like one closer Degenerati on of lumbar intervertebral disc 29826666 M51.36 was seeing pain mgmt, pt requests tylenol ER 650 mg [id number] Carla Harrell APN, FNP-C [facility] (Adult Med) [address] [place] [address] 06/03/2020 15:12:10 06/04/2020 08:50:14 Adult health examination 972714980 Z00.01 Encouraged routine [employer], vision, dental exams, well balanced diet. Screening for malignant neoplasm of colon 120749680 Z12.11 Stool kit provided with [employer] for use. Disorder of vitamin D 38 7205497 E56.9 recheck level Essential hypertension 83685137 I10 elevated today, missing mid day dosing; dwp importance of med compliance and risk of adverse cardiac event Continue propranolo l and losartan. will change dosing to both meds to bid dosing with a slight increase to propranolo l as well: losartan 25 mg 2 tablets bid and propranolo l 60 mg bid Fibromyalgia 477188080 M 79.7 diagnosed at [place] several ago, dwp doing yoga or other exercises to help stretch daily; cont duloxetine 60 mg, 30 mg total of 90 mg pt is to see neuro in June and would like to resume celebrex and lyrica prior to that visit so meds can be adjusted when she goes, dwp options and will resums, lyrica at lower dose Hyperlipidemia 67853158 E78.2 Continue Simvastati n. Morbid obesity 772323149 E66.01 advised low fat, low cholestero l, low carb diet, regular exercise and weight reduction. Tobacco de pendence syndrome 32264088 F17.290 Continue to cut back on smoking. Type 2 berta betes mellitus 56671268 E11.9 last a1c was 6.2, today 6.1; dwp to cont metformin Chronic ob structive pulmonary disease 24213966 J44.9 Smoking cessation encouraged cont inhalers-p rn albuterol [id number] Carla Harrell APN, [employer] IN[employer]ER-[facility] (Adult Med) [address] [place] [address] 08/25/2020 15:48:39 08/25/2020 18:49:39 Sore throat 417442801 J02.9 dwp to increase fluids, OTC cold med prn, rest, good handwashin g Diverticul osis of colon 097914813 K57.[address] from ER, increasing pain, dwp needs to follow up with GI or go to ER if pain worsening, justen lcover for bacterial infection with cipro and flagyl Degenerati on of lumbar intervertebral disc 55242014 M51.36 was seeing pain mgmt, but has not been able to go back;cont prn tylenol ER 650 mg, will send smll rx for severe pain only [id number] Carla Harrell APN, [facility] (Adult Med) [address] [place] [address] 10/27/2020 14:58:17 10/28/2020 10:49:48 Degeneration of lumbar intervertebral disc 90420873 M51.36 was seeing pain mgmt, but has not been able to go back;cont prn tylenol ER 650 mg,will send new referral Essential hypertension 40329823 I10 improved dwp importance of med compliance and risk of adverse cardiac event Continue losartan 25 mg 2 tablets bid and propranolo l 60 mg bid Hyperlipidemia 58968514 E78.2 Continue Vasyltabrook n. Chronic ob structive pulmonary disease 32923121 J44.9 Smoking cessation encouraged cont inhalers-p rn albuterol Morbid obesity 536565534 E66.01 advised low fat, low cholestero l, low carb diet, regular exercise and weight reduction. Type 2 berta betes mellitus 18374551 E11.9 last a1c was 6.1; dwp to cont metformin Tobacco de pendence syndrome 64459787 F17.290 Continue to cut back on smoking. Gastroesop hageal reflux disease without esophagitis 065691379 K21.9 cont ppi, follow up with GI as planned Obesity 837225453 E66.9 advised low fat, low cholestero l diet, regular exercise and weight reduction. Diverticul osis of colon 318869886 K57.[address] from ER, recent colonoscop ydiet changes advised;dw p needs to follow up with GI [id number] Carla Harrell APN, [facility] (Adult Med) [address] [place] [address] 01/29/2021 14:29:21 02/01/2021 10:44:07 Degeneration of lumbar intervertebral disc 62870079 M51.36 was seeing pain mgmt, but has not been able to go back;cont prn tylenol ER 650 mg,waiting on referral Essential hypertension 47779956 I10 improved with rest dwp importance of med compliance and risk of adverse cardiac event Continue losartan 25 mg 2 tablets bid and propranolo l 60 mg bid Hyperlipidemia 70608939 E78.2 Continue Vasyltabrook n. Chronic ob structive pulmonary disease 41750922 J44.9 Smoking cessation encouraged cont inhalers-p rn albuterol Morbid obesity 355476038 E66.01 advised low fat, low cholestero l, low carb diet, regular exercise and weight reduction. Type 2 berta betes mellitus 97114773 E11.9 last a1c was 5.8; dwp to cont metformin Tobacco de pendence syndrome 39856360 F17.290 Continue to cut back on smoking. 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 [id number] 54540 G56.02 was ready for surgery then covid halted it, needs new referral to ortho [id number] Carla Harrell APN, TELEVISION CABLE INSTALLER-C [facility] (Adult [facility]) [address] [place] [address] 05/12/2021 11:22:54 05/13/2021 06:21:44 Psoriasis of scalp [id number] L40.9 patch to forehead, since last July, has been trying to get it to go away using topicalspr n clobetasol Degenerati on of lumbar intervertebral disc [id number] M51.36 was seeing pain mgmt, but has not been able to go back;pt states tramadol is no longer helping her, will change to tylenol with codeine until she can see pain mgmtpt also requesting increase to lyricawait ing on referral, pt is willing to do PT in order to get into pain mgmt Essential hypertension [id number] I10 pt has been taking 300 mg losartan bid on her own, was advised that was incorrect dosing. dwp importance of med compliance and risk of adverse cardiac event Continue losartan 100 mg bid Gastroesop hageal reflux disease without esophagitis [id number] K21.9 cont ppi, follow up with GI as planned Lumbago with sciatica 20 6133350 M54.41 M54.42 trying to get back into pain mgmtmay have flexeril prn,advise d diclofenac prn,cont lyricadwp to call if needing new referral for pain mgmt, was getting injections Type 2 berta betes mellitus 42229287 E11.9 last a1c was 5.8; dwp to cont metformin Dysuria 74314394 R30.0 urine pos for nitrates, blood and leuk, will send for culture as well as treat with macrobid [id number] MD Tal SPRINGER (OUTSIDE PARTS SALESMAN) [address] [place] [address] 03/19/2024 13:03:25 03/22/2024 16:31:12 Positive screening for depression on PHQ-9 (Patient Health Questionnaire 9) [id number] 42573 Z13.31 - Referred to at [facility] by PCP Routine gy necologic examination done [id number] 9101 Z01.419 - Reviewed risks for infection and cancer; ordered screening tests as appropriat e- Patient to follow up with PCP for routine cardiovasc ular disease screening- UTD on cervical cancer screening until 09/2024 Screening for malignant neoplasm of breast 859682037 Z12.31 - Mammo ordered by PCP Venereal d isease screening 095681677 Z11.3 - STI screening including serum testing per patient request Administra tion of diphtheria, pertussis, and tetanus vaccine 654150449 Z23 Administra tion of pneumococcal vaccine 33482564 Z23 Health Concerns Section Related Observation LastModified by Organization Detai ls LastModified Time None Recorded Concern Status LastModified by Organization Details LastModified Time None Recorded Advance Directives Directive N: Payers Encounter Date Sequence Insurance Name Policy Number Policy Poole Covered Member ID Poole Member ID Guarantor Name 08/25/2020 1 [facility] - DOS PRIOR TO 2020 (MEDICAID REPLACEMENT - HMO) Dipika Tran [id number] Dipika Tran 10/27/2020 1 [facility] - DOS ON OR AFTER 20 (MEDICAID REPLACEMENT - HMO) Dipika Tran [id number] Dipika Tran 01/29/2021 1 [facility] (MEDICAID HMO) [id number] Dipika Tran [id number] Dipika Tran 05/12/2021 1 [facility] (MEDICAID HMO) [id number] Dipika Tran [id number] Dipika Tran 03/19/2024 1 [facility] (MEDICAID HMO) [id number] Dipika Tran [id number] Dipika Marc Notes Date Note Type Note Provider Name and Address Organization Details Recorded Time 1 text/html has been in pain for the last month. Pt claim it large intestine. would like to be referred to have colonoscopy Carla Harrell APN, FNP-C Attn: Accounting,[address] [facility], [place], [address], [facility] 08/25/2020 16:29:13 1 text/html Throat PainReported bypatient.Location:level of pain Quality:aching Severity:moderate Duration:started 1 week(s) ago Onset/Timing:constant Alleviating Factors:cold medicine Aggravating Factors:smoking Associated Symptoms:throat tickle/itch Diet History:caffeine; sodaNotes:had a fever for a day but broke last night.gargled peroxide, no sinus drainage Carla Harrell APN, FNP-C Attn: Accounting,[address] [facility], [place], [address], [facility] 08/25/2020 16:29:13 1 text/html COPDReported bypatient.Onset/Timing:in termittent; [...] for [facility] if possible Carla Harrell APN, TELEVISION CABLE INSTALLER-C Attn: Accounting,[address] [facility], [place], [address], [facility] 10/27/2020 23:19:59 1 text/html COPDReported [...] for a surgery. want flu shot Carla Harrell APN, FNP-C Attn: Accounting,[address], [place], [address], [facility] 01/29/2021 17:42:32 2 text/html COPDReported bypatient.Onset/Timing:in termittent; [...] diabetic so they are working on Carla Harrell APN, FNP-C Attn: Accounting,[address], [place], [address], [facility] 05/12/2021 14:19:55 5 text/html Annual well woman- [...] ppd. JOY PICKARD MD Attn: Accounting,[address] [place], [address], [facility] 03/19/2024 15:25:14 OBGyn Episode Ob Episode Information Episode Created Date Number of Fetuses Patient Bloodtype Patient rh Status Prepregnancy Weight lbs Domestic Partner Domestic Partner Phone Father Name Environmental Services Floor Tech Status 05/06/19 16 1 CLOSED Fetus Data First Name Last Name Admitted to NICU Weight (g) Sex Living Outcome Pediatric Complications Fetus ID Race Codes Race Delivery Type 3628.73 6 M Full Term 49114 Brendan Calculation Initial Brendan Date Initial Exam [...] Domestic Partner Domestic Partner Phone Father Name Environmental Services Floor Tech Status 05/06/19 16 1 CLOSED Fetus Data First Name Last Name Admitted to NICU Weight (g) Sex Living Outcome Pediatric Complications Fetus ID Race Codes Race Delivery Type , Induced 27610 Brendan Calculation Initial Brendan Date Initial Exam [...] Domestic Partner Domestic Partner Phone Father Name Environmental Services Floor Tech Status 05/06/19 16 1 CLOSED Fetus Data First Name Last Name Admitted to NICU Weight (g) Sex Living Outcome Pediatric Complications Fetus ID Race Codes Race Delivery Type , Induced 54689 Brendan Calculation Initial Brendan Date Initial Exam [...] Domestic Partner Domestic Partner Phone Father Name Environmental Services Floor Tech Status 05/06/19 16 1 CLOSED Fetus Data First Name Last Name Admitted to NICU Weight (g) Sex Living Outcome Pediatric Complications Fetus ID Race Codes Race Delivery Type 3175.14 4 M Full Term 33523 Brendan Calculation Initial Brendan Date Initial Exam [...] Domestic Partner Domestic Partner Phone Father Name Environmental Services Floor Tech Status 05/06/19 16 1 CLOSED Fetus Data First Name Last Name Admitted to NICU Weight (g) Sex Living Outcome Pediatric Complications Fetus ID Race Codes Race Delivery Type 3175.14 4 F Full Term 55931 Brendan Calculation Initial Brendan Date Initial Exam [...] Domestic Partner Domestic Partner Phone Father Name Environmental Services Floor Tech Status 05/06/19 16 1 CLOSED Fetus Data First Name Last Name Admitted to NICU Weight (g) Sex Living Outcome Pediatric Complications Fetus ID Race Codes Race Delivery Type 3628.73 6 F Full Term 81055 Brendan Calculation Initial Brendan Date Initial Exam [...] Domestic Partner Domestic Partner Phone Father Name Environmental Services Floor Tech Status 05/06/19 16 1 CLOSED Fetus Data First Name Last Name Admitted to NICU Weight (g) Sex Living Outcome Pediatric Complications Fetus ID Race Codes Race Delivery Type Ectopic 14528 Brendan Calculation Initial Brendan Date Initial Exam [...] Domestic Partner Domestic Partner Phone Father Name Environmental Services Floor Tech Status 05/06/19 16 1 CLOSED Fetus Data First Name Last Name Admitted to NICU Weight (g) Sex Living Outcome Pediatric Complications Fetus ID Race Codes Race Delivery Type 3175.14 4 F Full Term 90085 Brendan Calculation Initial Brendan Date Initial Exam [...] Domestic Partner Domestic Partner Phone Father Name Environmental Services Floor Tech Status 05/06/19 16 1 CLOSED Fetus Data First Name Last Name Admitted to NICU Weight (g) Sex Living Outcome Pediatric Complications Fetus ID Race Codes Race Delivery Type , Spontane ous 52079 Brendan Calculation Initial Brendan Date Initial Exam [...] Domestic Partner Domestic Partner Phone Father Name Environmental Services Floor Tech Status 05/06/19 16 1 CLOSED Fetus Data First Name Last Name Admitted to NICU Weight (g) Sex Living Outcome Pediatric Complications Fetus ID Race Codes Race Delivery Type , Induced 88813 Brendan Calculation Initial Brendan Date Initial Exam [...]
[2024-05-02 08:56] LABS: Glucose Point of Care 88 mg/dl (65-105)
[2024-05-02] MEDS: LACTATED RINGERS 1,000 ML 30 ML IV CONT (09:20)
--- NOTE | 2024-05-02 09:53 | WPDANESEPPF ---
Anes - Initial Pre Proc Eval Procedure: Operation Date: 05/02/24 10:00 Proposed Procedures p Right Carpal Tunnel Scar Revision with Local Flap - Kashif Steiner MD Date/Time: 05/02/24 09:53 Surgeon: Kashif Steiner MD Pre Op Diagnosis: Scar Irritation, HX Right Carpal Tunnel Release Patient Data Age: 54 Gender: F Height: 1.65 m Weight: 95.3 kg Allergies Allergy/AdvReac Type Severity Reaction Status Date / Time No Known Allergies Allergy Verified 05/02/24 08:58 Home Medications ?Medication ?Instructions ?Recorded ?Confirmed ?Type multivitamin 1 tablet PO DAILY 08/22/23 04/22/24 History blood sugar diagnostic (OneTouch #100 ea 09/21/23 03/26/24 Rx Verio test strips) blood-glucose meter ([employer] #1 ea 09/21/23 03/26/24 Rx Verio Reflect Meter) lancets 33 gauge (OneTouch Delica #100 ea 09/21/23 03/26/24 Rx Plus Lancet) rosuvastatin 10 mg tablet 10 mg PO DAILY #90 tabs 09/21/23 04/22/24 Rx pregabalin 100 mg capsule 100 mg PO TID #90 caps 10/21/23 04/22/24 Rx omeprazole 40 mg capsule,delayed 40 mg PO DAILY #90 caps 01/24/24 04/22/24 Rx release hydroxyzine pamoate 25 mg capsule 50 mg (2 x 25 mg) PO QPM #180 caps 01/29/24 04/22/24 Rx losartan 100 1 tablet PO QAM #90 tabs 01/29/24 04/22/24 Rx mg-hydrochlorothiazide 12.5 mg tablet metformin 1,000 mg tablet 1,000 mg PO QAM #90 tabs 01/29/24 04/22/24 Rx propranolol 20 mg tablet 20 mg PO DAILY #90 tabs 01/29/24 05/02/24 Rx valbenazine 40 mg capsule 40 mg PO DAILY #90 caps 03/26/24 04/22/24 Rx (Ingrezza) albuterol sulfate 90 mcg/actuation 1 puff inhalation QID PRN 04/22/24 04/22/24 History aerosol inhaler shortness of breath or wheezing cholecalciferol (vitamin D3) 25 25 mcg PO DAILY 04/22/24 04/22/24 History mcg (1,000 unit) capsule (Vitamin D3) cyclobenzaprine 10 mg tablet 10 mg PO TID PRN muscle spasm 04/22/24 04/22/24 History divalproex 500 mg tablet,delayed 500 mg PO DIRECTED 04/22/24 04/22/24 History release duloxetine 60 mg capsule,delayed 60 mg PO DAILY 04/22/24 04/22/24 History release liraglutide 0.6 mg/0.1 mL (18 mg/3 0.6 mg subcut DIRECTED 04/22/24 04/22/24 History mL) subcutaneous pen injector meloxicam 7.5 mg tablet 7.5 mg PO BID PRN pain (scale 04/22/24 04/22/24 History score 4-6) oxycodone-acetaminophen 5 mg-325 1 tablet PO Q6H PRN pain #40 tabs 04/25/24 Rx mg tablet (Percocet) fluticasone propionate 50 1 spray intranasal BID #48 grams 04/29/24 05/02/24 Rx mcg/actuation nasal spray,suspension (Flonase Allergy Relief) methylprednisolone 4 mg tablets in See Rx Instructions PO PER PKG DIR 04/29/24 05/02/24 Rx a dose pack (Medrol (French)) #21 ea sulfamethoxazole 800 1 tablet PO DAILY #7 tabs 05/02/24 Rx mg-trimethoprim 160 mg tablet (Bactrim DS) Laboratory Tests 05/02/24 08:52 POC Capillary Glucose 88 mg/dl (65-105) Patient hx anesthesia problems: none Family hx anesthesia problems: none Results Review: All pre-operative results and documents have been reviewed as part of the pre-operative evaluation. [facility] Past Medical History Medical History Smoking Thrush Preoperative clearance Tardive dyskinesia CTS (carpal tunnel syndrome) PTSD (post-traumatic stress disorder) Bipolar disorder Fibromyalgia Anxiety Peripheral neuropathic pain Psychiatric diagnosis Surgical History Surgical History S/P total hip arthroplasty Family History Family History Unknown Hypertension Depression Heart disease Diabetes mellitus Cerebrovascular accident Neuropathy Arthritis Other Peripheral neuropathic pain Social History Social History Smoking packs per day: 0.25 Smoking cigarettes per day: 5.0 Years smoked: 20 Smoking pack-years: 5.00 Smoking status: Former smoker Tobacco type: cigarettes Smoking end date: 08/04/23 Alcohol intake: never Substance use: former Substance use type: marijuana Last use: 09/04/23 Do You Feel Safe in your Home?: Yes Lack of Transportation: No Lack of Food: Never True Current Housing: I Do Not Have Housing Concerned About Future Housing: No Difficulty Paying Gas/Electric Bills: YES Difficulty Paying for Meds: No Currently Unemployed: No Education: Associate Degree Difficulty w/ Childcare or Family Care: No Living arrangements: with family Additional living arrangements comments: DAUGHTER Occupation/Education: unemployed Gender identity (if verbalized by the patient): Female Spiritual care concerns: No Anes - Eval Final PreProcedure Day of Procedure 05/02/24 09:53 Patient weight: obese Heart: regular rate and rhythm Lungs: decreased breath sounds Airway: Mallampati scale class II Neurological: alert and oriented Last oral intake: >/= 8 hours ASA classification: III Emergent: no Anesthetic plan: proceed Anesthesia type and monitoring: general GIVS and standard monitoring Results Review: All pre-operative results and documents have been reviewed as part of the pre-operative evaluation. Informed Consent: The patient's anesthetic plan and its attendant risks and benefits were discussed with the patient/family/POA. Questions were solicited and answers provided to the satisfaction of the patient/family/POA.
[2024-05-02] MEDS: ceFAZolin SODIUM 2 GM/20 ML SW SYRINGE IV PUSH (09:57)
[2024-05-02] MEDS: BUPivacaine HCL 0.5% 10 ML AMP 2 ML INFILTRATE (10:36)
[2024-05-02] MEDS: LIDO 1%/EPINEPHRINE 1:100,000 10 ML VIAL 2 ML INFILTRATE (10:36)
[2024-05-02] MEDS: BACITRACIN ZINC OINTMENT 0.9 GRAM PACKET 1 PACKET TOPICAL (10:36)
[2024-05-02 10:38] VITALS: BP 152/94; PULSE 82; RESP 18; O2SAT 99
--- NOTE | 2024-05-02 10:45 | WPDANESPN ---
Anes - Prog Note Post-Op Date/Time: 05/02/24 10:45 Cardiovascular status: normal Respiratory status: normal Airway patency: baseline Mental status: baseline Post-Op hydration status: normal Pain Score (VAS): 0 I/O: 0 05/02/24 08:52 POC Capillary Glucose 88 Patient Feedback: Patient satisfied with anesthetic care.
[2024-05-02 10:48] VITALS: BP 125/74; PULSE 87; RESP 16; O2SAT 97
[2024-05-02 10:58] VITALS: BP 130/81; PULSE 79; RESP 15; O2SAT 99
[2024-05-02 11:08] VITALS: BP 137/72; PULSE 79; RESP 15; O2SAT 100
== END 2024-05-02 11:33 | disposition home or self-care (01) ==
LOC: ASC 07:52
PROVIDERS: PCP Emergency Medicine; Visit Provider Plastic Surgery
PROC: (CPT 64721; principal; 2024-05-02 10:00)
DX: L90.5 Scar conditions and fibrosis of skin (principal)
CPT/HCPCS: 15736; 14040; 64721

== ENCOUNTER 2024-06-15 20:44 | Emergency (ER) | payer OTHER, SELFPAY ==
--- NOTE | ~2024-06-15 | XR_ITS ---
EXAMINATION: XR wrist RT min 3V DATE: 06/15/2024 23:46 INDICATION: Wound drainage post recent surgery one month prior TECHNIQUE: Posteroanterior, ulnar deviation, oblique, and lateral views of the right wrist were obtai jonathan. COMPARISON: none FINDINGS: Bone alignment is normal. No fracture. 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 There is prominent s oft tissue swelling at the volar aspect of the distal forearm, wrist and hand. There are soft tissue gas extending proximally along the volar soft tissues of the right forearm. IMPRESSION: 1. Small but extensive distribution of soft tissue gas at the volar aspect of the visualized right fo rearm which raises concern for necrotizing fasciitis. Dr. Marie discussed these findings with Dr. Wilkinson at 7:20 AM. Per discussion the patient has an open wound which sucks in air after expressing ser ous fluid which could explain the gas and the clinical suspicion for necrotizing fasciitis is low inc luding a normal white count. Reviewed, dictated and finalized at location A. IMPRESSION: 1. Small but extensive distribution of soft tissue gas at the volar aspect of t he visualized right forearm which raises concern for necrotizing fasciitis. Dr. Marie discussed these findings with Dr. Wilkinson at 7:20 AM. Per discussion the patient has an open wound which sucks in air after expressing serous fluid whi ch could explain the gas and the clinical suspicion for necrotizing fasciitis i s low including a normal white count.
--- OUTSIDE RECORDS SUMMARY | 2024-06-15 20:47 | XMS_ITS | Patient Health Record ---
Author Organization [facility] Address [address] [place] [address] Care Team Providers Care Hr Receptionist Name Role Phone Bibi Lopez Primary Care Provider [phone] Allergies Allergen (clinical drug ingredient) Drug/Non Drug Allergy documented on EMR Reaction Allergy Type Onset Date Status meloxicam Mobic Unknown Drug Allergy Active Reason For Referral No Information Medications Medication SIG (Take, Route, Frequency, Duration) Notes Start Date End Date Status Depakote 500 MG 1 tablet Orally thre e times a day Active metFORMIN HCl 1000 MG 1 tablet with a me al Orally Once a day Active Cymbalta 60 MG 1 capsule Orally Onc e a day Active Meloxicam 7.5 MG 1 tablet Orally twic e a day Active Ingrezza 40 MG 1 capsule Orally Onc e a day Active Albuterol Sulfate HFA 108 (90 Base) MCG/ACT 1 puff as needed Inhalation four times a day Active Victoza 18 MG/3ML as directed Subcutaneous Active Hydroxychloroquine Sulfate 200 MG 1 tablet Orally once a day Not-Taking Vitamin D (Ergocalciferol) 1.25 MG (02702 UT) 1 capsule Orally weekly Active Topiramate 200 MG 1 tablet Orally Once a day Active oxyCODONE-Acetaminophen 5-325 MG 1 tablet as needed Orally twice a day Active Omeprazole 40 MG 1 capsule 1/2 to 1 hour before morning meal Orally Once a day Active Propranolol HCl 40 MG 1 tablet Orally Tw ice a day Active Aspirin 81 MG 1 tablet Orally Once a day Active Lyrica 100 MG 1 capsule Orally three times a day Active Losartan Potassium-HCTZ 100-12.5 MG 1 tablet Orally Once a day Active Simvastatin 40 MG 1 tablet in the evening Orally Once a day Active Social History Tobacco Use: Social History Observation Description Date Details (start date - stop date) Current Smoker NA - NA Sex Assigned At : Social History Observation Description Sex Assigned At Female Tobacco Control (Standard) Question Answer Notes Tobacco use: Current smoker How often do you smoke cigarettes? Every day How many cigarettes a day do you smoke? 5 or les s Problems Problem Type SNOMED Code ICD Code Onset Dates Problem Status W/U Status Risk Notes Problem Schizoaffective disorder, bipolar type (06517411) Schizoaffective disorder, bipolar type (F25.0) Active confirmed Problem Insomnia disorder related to another mental disorder (59984488) Insomnia due to other mental disorder (F51.05) Active confirmed Problem Anxiety disorder (805000494) Anxiety disorder (F41.9) Active confirmed Problem Mild recurrent major depression (17450156) Depression, major, recurrent, mild (F33.0) Active confirmed Problem Posttraumatic stress disorder (49851924) Post traumatic stress disorder (PTSD) (F43.10) Active confirmed Problem Smoker (74123588) Smoker (F17.200) Active confi rmed Vital Signs Heart Rate 83 /min 05/22/2024 Respiratory Rate 16 /min 05/22/2024 Blood pressure diastolic 82 mm Hg 05/22/2024 Oximetry 97 % 05/22/2024 Height 65 in 05/22/2024 Blood pressure systolic 128 mm Hg 05/22/2024 Weight 207 lbs 05/22/2024 BMI 34.44 kg/m2 05/22/2024 Encounters Encounter Location Date Provider Diagnosis [address] [address] 05/22/2024 Bibi Lopez Schizoaffective disorder, bipolar type F25.0 ; Anxiety disorder F41.9 ; Post traumatic stress disorder (PTSD) F43.10 ; Depression, major, recurrent, mild F33.0 ; Insomnia due to other mental disorder F51.05 and Smoker F17.[address] [place] [address] 05/06/2024 Bibi Lopez [address] [place] [address] 05/06/2024 Bibi Lopez [address] [place] [address] 05/08/2024 Bibi Noeth Assessments Encounter Date Diagnosis (ICD Code) Assessment Notes Treatment Notes Treatment Clinical Notes Section Notes 05/22/2024 Schizoaffective disorder, bipolar type (ICD-10 - F25.0) Cont current meds Written RX given lamotrigine has a serious rashes requiring hospitalization and discontinue treatment including Sorin Remi syndrome rare case of toxic epidermal necrolysis and cache related deaths. Other risk factor may include concomitant use of valproate acid derivative or exceeding initial lamotrigine does or does as clinician recommendation; most life-threatening rash of occurring first 2 to 8 week of treatment with isolated cases after prolonged treatment; though benign may occur, discontinue treatment at first sign of rash unless clearly not a drug related; TC treatment may not prevent trash from becoming life-threatening or permanently disabling or disfiguring. Comment reaction include, nausea/vomiting, dizziness/vertigo, visual disturbances, somnolence, ataxia, pruritus/rash, pharyngitis, headache, rhinitis, diarrhea, fever, asthenia, insomnia, tremor, abdominal pain, cough, accidental injury, constipation, dysmenorrhea, incoordination, anxiety, seizures, irritability, anorexia, xerostomia, and photosensitivity. Serious reactions include: Rash, severe; Day Remi syndrome; toxic epidermal necrosis; injury edema, hypersensitivity reactions. Including fatal, multiple organ failure to safe fatal, rash with eosinophilia systemic symptoms, DIC, neutropenia, leukopenia, thrombocytopenia, pancytopenia, aplastic anemia, hemolytic anemia, i pancreatitis, hepatic failure, rhabdomyolysis, worsening of suicidal ideation, worsening of depression, cleft lip/palate [first trimester use] DO NOT change cosmetic, perfumes or soap for next 4 weeks. The patient was advice to take lamotrigine as prescribed the patient was instructed not to deviate from the prescription dosages. Stop lamotrigine is the first sign of rash. Patient was insisted to inform office if any of the serious side effect develops. 05/22/2024 Anxiety disorder (ICD-10 - F41.9) pt uses coping skills such as aroma therapy and breathing techniques pt also takes hydroxyzine prescribed by her PCP Discussed anxiety and ways to avoid triggers and reduce anxious states 05/22/2024 Post traumatic stress disorder (PTSD) (ICD-10 - F43.10) Cont current meds- managed well at this time 05/22/2024 Depression, major, recurrent, mild (ICD-10 - F33.0) Cont current meds- managed well at this time Please mx for signs and symptoms of serotonin syndrome include but not limited to: anxiety, agitation, high fever, sweating, confusion, tremors, restlessness, lack of coordination/hyperr eflexia,clonus, major changes in blood pressure, and rapid heart rate. Call 911 / seek immediate medical attention if any of these signs or symptoms and call the office to make provider aware. Pt receptive Pt aware to call 911 and or 988 if having thoughts of suicide plan or intent or having homicidal ideations. Pt voiced understanding. 05/22/2024 Insomnia due to other mental disorder (ICD-10 - F51.05) Cont current meds- managed well at this time 05/22/2024 Smoker (ICD-10 - F17.200) Can call [phone] , you can speak confidentially with a highly trained quit coach wirer. ( ) Not interested in quitting at this time despite benefits Plan Of Treatment Next Appt Details Provider Name:Bibi Barreto , 07/24/2024 11:20:00 AM, [address], [address], Insurance Providers Payer Name Payer Address Payer Phone Subscriber Number Group Number Insured Name Patient Relationship to Insured Coverage Start Date Coverage End Date [address] [phone] [id number] Dipika Tran Self - patient is the insured Medical (General) History Surgical History Surgery Date(Month/Year) left hip replacement Right hand repair
--- OUTSIDE RECORDS SUMMARY | 2024-06-15 20:47 | XMS_ITS | Encounter Summary ---
Author Organization [facility] Address [address] [place] [address] Care Team Providers Care Tyre Finisher And Examiner Name Role Phone Meme Samuel RN Unavailable Unavailable Omar Delarosa MD, Raymond [place] Primary Care Prov ider Adelina Trinidad DO Unavailable Encounter Details Date Type Department Care Team (Late st Contact Info) Description 03/07/2022 [facility] Outpatient Visit [facility] Orthopedics - Radiology [address] [place] [address] [place] [address] Document, Scanned Social History Tobacco Use Types Packs/Day Years Used Date Smoking Tobacco: Every Day Cigarettes Smokeless Tobacco: Never Comments:STOP 3 DAYS BEFORE SURGERY Alcohol Use Standard Drinks/Week Comments No 0 (1 standard drink = 0.6 oz pur e alcohol) Comments No Sex and Gender Information Value Date Recorded Sex Assigned at Female 01/11/2022 4:28 AM DESIGN SPECIALIST Legal Sex Female 5:17 PM DESIGN SPECIALIST Gender Identity Female 01/11/2022 4:28 AM DESIGN SPECIALIST Sexual Orientation Straight 01/11/2022 4: 28 AM DESIGN SPECIALIST COVID-19 Exposure Response Date Recorded In the last 10 days, have yo u been in contact with someone who was confirmed or suspected to have Coronavirus/COVID-19? No / Unsure 03/03/2022 1:05 PM DESIGN SPECIALIST documented as of this encounter Functional Status * Is person deaf or have serious hearing difficulty? Answer Date of Assessment Author No 12/31/2021 10:55 AM DESIGN SPECIALIST Deneen Irene RN * Is person blind or have serious difficulty seeing? Answer Date of Assessment Author No 12/31/2021 10:55 AM Deneen Romo RN * Does person have serious difficulty walking/climbing stairs? Answer Date of Assessment Author No 12/31/2021 10:55 AM Deneen Romo RN * Does person have difficulty dressing/bathing? Answer Date of Assessment Author No 12/31/2021 10:55 AM Deneen Romo RN * Does person have difficulty doing errands alone? Answer Date of Assessment Author No 12/31/2021 10:55 AM Deneen Romo RN documented as of this encounter Mental Status * Does person have difficulty concentrating/remembering/making decisions? Answer Entry Date Author No 12/31/2021 10:55 AM Deneen Romo RN documented in this encounter Plan of Treatment Not on file documented as of this encounter Visit Diagnoses Not on filedocumented in this encounter Care Teams Tyre Finisher And Examiner Relationship Specialty [place] [address] [place] [address] PCP - General Family Medicine 02/09/22 Meme Samuel RN Registered Nurse 02/06/17 Adelina Trinidad DO [address] [id number] Rheumatology 07/07/22 documented as of this encounter
--- OUTSIDE RECORDS SUMMARY | 2024-06-15 20:47 | XMS_ITS | Referral Summary ---
Author Organization [facility] Address [address] [place] [address] Care Team Providers Care Cover Assembler Name Role Phone Unknown, Notinfile Primary [...] (10/20/2020): Added automatically from request for surgery [id number] Back pain with left-sided sciatica 10/19/2020 Diverticulosis 09/13/2020 Overview (09/13/2020): Added automatically from request for surgery [id number] Family history of colon cancer in mother 021 Overview (09/13/2020): Added automatically from request for surgery [id number] Hx of colonic polyps 09/13/2020 Overview (09/13/2020): Added automatically from request for surgery [id number] Diverticulosis of colon 09/11/2020 Assessment & Plan (09/11/2020 1:48 PM CDT): Colonoscopy and then recap in office Carpal tunnel syndrome of left wrist 06/30/2020 Tardive dyskinesia 04/28/2020 Complex dental caries 11/28/2019 Overview (11/28/2019): Added automatically from request for surgery [id number] Essential hypertension, malignant 11/28/2019 Overview (11/28/2019): Added automatically from request for surgery [id number] Breath, shortness 11/28/2019 Overview (11/28/2019): Added automatically from request for surgery [id number] Severe diabetes mellitus 11/28/2019 Overview (11/28/2019): Added automatically from request for surgery [id number] Posttraumatic stress disorder 11/28/2019 Overview (11/28/2019): Added automatically from request for surgery [id number] Anxiety 11/28/2019 Overview (11/28/2019): Added automatically from request for surgery [id number] Infection following a procedure, subsequent enco unter [...] on file Legal Sex Female 1:20 AM CIRCUIT JUDGE Gender Identity Not on file Sexual Orientation [...] 07/03/2021 4:43 PM CDT Shawn Xiao Mary KIER TENDER LAB BLOOD ORDERABLES Final Result [facility] ([place]) [address] [facility] Department [place] [address] * Screening Mammogram Bilateral W Pavan (07/03/2021 [...] was last revised 2018. Testing performed by: [address] [address] Creatinine Ur 182.5 mg/dL [facility] ([place]) Comment: Interpretive Data No reference range established. Current interpretive data was last revised 2018. Testing performed by: [address], [address] Albumin Creatinine Ratio, Ur 17 1 - 29 mg/g [facility] ([place]) Comment:Testing performed by : [facility], [address] [facility], [address] Urine 11/17/2020 11:0 0 AM CDT 11/17/2020 2:34 PM CDT Carla Harrell KIER TENDER LAB URINE ORDERABLES Final R esult Performing Organization Address [facility] de Phone Number [facility] ([place] [address] [facility] [place] [address] * (ABNORMAL) Hemoglobin A1c (11/17/2020 10:48 AM [...] and children were not included. (Diabetes Care 31:9751-0084, 2008). The eAG is not equivalent to a fasting glucose. Blood 11/17/2020 10:4 8 AM CDT 11/17/2020 11:20 AM CDT Carla Harrell NP LAB BLOOD ORDERABLES Final R esult Performing Organization Address [facility] Co de Phone Number [facility] ([place]) [address] [facility] [place] [address] * (ABNORMAL) Lipid panel (11/17/2020 10:48 AM [...] 2017. Non-HDL Cholesterol 139 mg/dL [facility] ([place]) Comment: Interpretive Data Ages < or = [...] on 2017. Chol/HDL ratio 5 [facility] ([place]) Blood 11/17/2020 10:4 8 AM CDT 11/17/2020 11:20 AM CDT Carla Harrell KIER TENDER LAB BLOOD ORDERABLES Final R esult [facility] ([place]) [address] [facility] Department [place] [address] * COLONOSCOPY (10/22/2020 10:34 AM CDT) Anatomical Region Laterality Modality Other Narrative Procedure Note Yunior Barber MD - 10/22/2020 10:34 AM CDT [facility] Patient Name: Dipika Tran Procedure Date: 10/22/2020 10:34 AM Date of : 1970 Admit Type: Outpatient Age: 50 Gender: Female Attending MD: Yunior Barber M.D. Room: [facility] ENDOSCOPY ROOM 2 Note Status: Finalized Patient [...] scope was passed under direct vision. TheColonoscope [id number] was introduced through the anus and advanced [...] 10:34 AM Procedure Code(s): --- Professional --- 59988, Colonoscopy, flexible; diagnostic, including collection of specimen(s) by brushing or washing, when performed (separateprocedure) Diagnosis Code(s): --- Professional --- K57.30, Diverticulosis of large intestine without perforation orabscess without bleeding K64.9, Unspecified hemorrhoids CPT copyright 2019 [employer]. All rights reserved. The codes documented in this report are preliminary and upon battery assembler reviewmay be revised to meet current compliance requirements. Recognized by the [employer] for promoting quality in endoscopy Yunior Barber MD ENDOSCOPY PROCEDURES Final Re sult from Last 3 Months or Most Recently Relevant to Health Maintenance Insurance [facility] Advance Directives For more information, please contact: [phone] * Full Code (Latest Code Status on File) Date Activated Date Inactivated Comments 11/20/2020 10:55 AM 11/20/2020 4:37 PM * Full Code Date Activated Date Inactivated Comments 10/22/2020 10:43 AM 10/22/2020 4:47 PM * Full Code Date Activated Date Inactivated Comments 10/22/2020 10:43 AM 10/22/2020 10:43 AM * Full Code Date Activated Date Inactivated Comments 10/20/2020 10:09 AM 10/20/2020 2:59 PM Care Teams Cover Assembler Relationship Specialty Start Date End Date Unknown, Notinfile PCP - General 04/03/23
--- OUTSIDE RECORDS SUMMARY | 2024-06-15 20:47 | XMS_ITS | Continuity of Care Document ---
Author Organization [facility] Address [address] [place] [address] [place] [address] Phone Care Team Providers Care Ash Collector Name Role Phone Thong Persaud MD Unavailable Unavailable Allergies, Adverse Reactions, Alerts Substance Reaction Status Criticality meloxicam Active No Information Medications Medication Instructions Dosage Effective Dates (start - stop) Status Comments losartan 100 mg tablet take 1 tablet by oral route every day 100 MG - Active Ultram 50 mg tablet take 1 tablet by oral route 3 times every day as needed 50 MG - Active avoid drivin g or oeprate machines Blue[place] 5 mg-325 mg tablet take 1 tablet by oral route every 6 hours as needed for pain - Active PRN for pain, avoid driving or operaete machines propranolol 40 mg tablet take 1 tablet [...] Providers Copied on Encounter OFFICE/OUTPA TIENT VISIT, [facility], [address], [place], [place], [address], [place] tel:[phone] [facility] chronic pain (chief complaint) asthma1 (chief complaint) HTN (chief complaint) AsthmaEssential (primary) hypertensionChronic pain syndrome 6 Hung Benito. [address], [place], [place], [address] , [place]. tel:[phone] Referring Provider: Asia Gutiérrez [address], [place], [place], [address]. tel:[phone] OFFICE/OUTPA TIENT VISIT, [facility], [address], [place], [place], [address], [place] tel:[phone] [facility] asthma1 (chief complaint) alcohol (chief complaint) back apin (chief complaint) arm numnbess1 (chief complaint) AsthmaAlcohol dependence, uncomplicatedChroni c pain syndromeNeuropathy 6 Hung Benito. [address], [place], [place], [address] , [place]. tel:[phone] Referring Provider: Asia Gutiérrez [address], [place], [place], [address]. tel:[phone] OFFICE/OUTPA TIENT VISIT, [facility], [address], [place], [place], [address], [place] tel:[phone] [facility] HTN (chief complaint) back pain1 (chief complaint) asthma (chief complaint) HLP (chief complaint) AsthmaLumbagoEssent ial (primary) hypertensionHyperli pidemia 6 Hung Benito. [address], [place], [place], [address] , [place]. tel:[phone] Referring Provider: Asia Gutiérrez [address], [place], [place], [address]. tel:[phone] OFFICE/OUTPA TIENT VISIT, [facility], [address], [place], [place], [address], [place] tel:[phone] [facility] headache1 (chief complaint) eye (chief complaint) back pain1 (chief complaint) HeadacheLumbagoEsse ntial (primary) hypertensionConjunc tivitis 6 Hung Benito. [address], [place], [place], [address] , [place]. tel:[phone] Referring Provider: Asia Guti[address]rez [address], [place], [place], [address]. tel:[phone] OFFICE/OUTPA TIENT VISIT, [facility], [address], [place], [place], [address], [place] tel:[phone] [facility] HTN (chief complaint) back pain (chief complaint) lumbago1 (chief complaint) DM (chief complaint) HyperlipidemiaEssen tial (primary) hypertensionHeadach eLumbago 6 Hung Benito. [address], [place], [place], [address] , [place]. tel:[phone] Referring Provider: Asia Gutiérrez [address], [place], [place], [address]. tel:[phone] OFFICE/OUTPA TIENT VISIT, [facility], [address], [place], [place], [address], [place] tel:[phone] [facility] HTN (chief complaint) back pain1 (chief complaint) anxiety1 (chief complaint) Essential (primary) hypertensionChronic pain syndromeDepressionO besity 6 Hung Benito. [address], [place], [place], [address] , [place]. [phone] Referring Provider: Asia Gutiérrez [address], [place], [place], [address]. tel:[phone] OFFICE/OUTPA TIENT VISIT, [facility], [address], [place], [place], [address], [place] tel:[phone] [facility] chronic pain (chief complaint) HTN (chief complaint) HLP (chief complaint) anxiety1 (chief complaint) Chronic pain syndromeHyperlipide miaEssential (primary) hypertensionDepress ion 6 Hung Benito. [address], [place], [place], [address] , [place]. [phone] Referring Provider: Asia Gutiérrez [facility] A, [place], [place], [address]. tel:[phone] OFFICE/OUTPA TIENT VISIT, [facility], [address], [place], [place], [address], [place] tel:[phone] [facility] COPD1 (chief complaint) cough1 (chief complaint) preDM (chief complaint) HLP (chief complaint) bipolar (chief complaint) Metabolic syndromeHyperlipide miaAcute bronchitisChronic pain syndrome 6 Hung Benito. [address] [facility] [address], [place], [place], [address] , [place]. [phone] Referring Provider: Asia Gutiérrez [facility] [address], [place], [place], [address]. tel:[phone] PREV VISIT, NEW, AGE 40-64 [facility], [address] [place], [address], [place] tel:[phone] [facility] PHysical (chief complaint) Encounter for general adult medical exam w abnormal findingsType 2 diabetes mellitus without complicationsEssent ial (primary) hypertensionHyperli pidemia 6 Hung Benito. [address], [facility] [address], [place], [place], [address] , [place]. [phone] Referring Provider: Asia Gutiérrez [facility] [address], [place], [place], [address]. tel:[phone] Family History Family Member Type Diagnosis Age [...] losartan and propranolol. Her BP is stable asthma1 Pt had benign ch est xray. Pt states that insurance did approve for symbicort. pt is on symbicort now. No qvar Pt uses ventolin 1-2 per week. Pt dose smoke chronic pain Pt has chronic n bob and back pain and headache. Pt is on propranolol and ultram and norco PRN for paing. Pt had benign neck xray Pt states that she is doing ok with her pain now back apin Pt has chronic l ow back pain.Pt states that she takes ultram daily. However, there is no ultram in her last UDS alcohol Pt states that s he drinks alcohol daily. Pt drink a tall can of beer daily per pt asthma1 P has asthma. Pt doing ok with symbicort but insurance does not cover symbicort Pt uses albuterol once per day. Pt jax any acute SOB. Pt still smoking arm numnbess1 Pt c/o bilateral arm numnbess [...] t akes zocor. Pt denies any myalgia back pain1 Pt has chronic l ow back pain. Pt has 6/10 pain. Pt c/o sciatica and leg numnbess. Pt takes ultram and norco PRn for pain and her pain is well controlled. Pt failed PT and nSAID in the past. Pt denies any worsening pain eye Pt c/o irritatio n right eye and also purulent pus drinage from right eye for 2-3 days. Pt states that her eye is matted shot in the morning. Pt denies any eye pain or any foreign body. Pt denies any vision loss. headache1 Pt has migraine heada hce. Pt has been taking propranolol and she thinks that her headache is slighlty better. Pt has less frequent headache and is not as severe. Pt has headache 1-2 per week. Pt had normal MRI of brain. Pt denies any triggering factor DM Pt is prediabeti c and she has mild HLP. pt is on metformin. Pt has low vitamin D lumbago1 Pt has chronic l ow back pain. Pt denies any loss of kyle or bladder control. Pt has sciatica and leg numbness pt is getting pain injections by pain management. PT states that ultram is not helping her pain. back pain HTN Pt is on losarta n [...] for 7-10 years. No head injury back pain1 Pt has chronic l ow [...] homicdial thought. Pt denies any hearing voices. HTN Pt has HTN. Pt t akes lisinopril and her bp is borderline. Pt denies any chest apin or headache anxiety1 Pt has chornic a nxiety and depression. Pt takes prozac. Pt missed her appointment with psychiatrist. Pt doing ok. Pt denies any suicidal or homicidal thought HLP Pt has HLP Pt ta kes zocor. Pt denies any myalgia. HTN Pt has HTN. Pt t akes lisinopril and her BP is high today. Pt denies any chest pain or headache. chronic pain Pt has chronic l ow back and knee pain. Pt c/o sciatica and leg numbness. Pt states that she needs more ultraum due to her pain. Pt had MRI of Lspine done recently. bipolar Pt has bipolar a nd she takes prozac. Pt denies any suicidal or homicdialt hought. Pt denies any crying spells. Pt doing ok. Pt sees psychiatrist HLP Pt takes zocor a nd doing ok. Pt denies any myalgia. Her lipid profle normal preDM Pt is prediabeti c. pt takes metformin. Her A1c is only 6.0. Pt denies any numbness. Pt denies any polyuria, polydipsia cough1 Pt c/o acute cou ghing with yellow phlegm, sore throat, running nose for several days. Pt denies any fever, chill. COPD1 Pt states that s he has labored breathing and SOB frequently. Pt has diagnosis of COPD. Pt takes symbicort and venotlin PRN. Pt uses ventolin almost daily. pt denies any acute SOB PHysical Pt needs annual physical. Pt has [...] Diet Related to Dietary Surveillance and Counseling Assessments Type Assessment Date assessment Asthma assessment Essential (primary) hypertension assessment Chronic pain syndrome 6 Mental Status Date Cognitive Assessment Orientation - [place] ed to time, place, person, situation.
--- OUTSIDE RECORDS SUMMARY | 2024-06-15 20:47 | XMS_ITS | Clinical Summary ---
Author Organization [facility] Address [address] [place] [address] Care Team Providers Care Culinary Artist Name Role Phone Unknown, Notinfile Primary Care [...] (10/20/2020): Added automatically from request for surgery [id number] Back pain with left-sided sciatica 10/19/2020 Diverticulosis 09/13/2020 Overview (09/13/2020): Added automatically from request for surgery [id number] Family history of colon cancer in mother 021 Overview (09/13/2020): Added automatically from request for surgery [id number] Hx of colonic polyps 09/13/2020 Overview (09/13/2020): Added automatically from request for surgery [id number] Diverticulosis of colon 09/11/2020 Assessment & Plan (09/11/2020 1:48 PM CDT): Colonoscopy and then recap in office Carpal tunnel syndrome of left wrist 06/30/2020 Tardive dyskinesia 04/28/2020 Complex dental caries 11/28/2019 Overview (11/28/2019): Added automatically from request for surgery [id number] Essential hypertension, malignant 11/28/2019 Overview (11/28/2019): Added automatically from request for surgery [id number] Breath, shortness 11/28/2019 Overview (11/28/2019): Added automatically from request for surgery [id number] Severe diabetes mellitus 11/28/2019 Overview (11/28/2019): Added automatically from request for surgery [id number] Posttraumatic stress disorder 11/28/2019 Overview (11/28/2019): Added automatically from request for surgery [id number] Anxiety 11/28/2019 Overview (11/28/2019): Added automatically from request for surgery [id number] Infection following a procedure, subsequent enco unter [...] on file Legal 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 Current interpretive data was last revised 2018. Testing performed by: [facility], [address] [place] [address]., [address] Creatinine Ur 182.5 mg/dL GENEVIEVE FONSECA ([place]) Comment: Interpretive Data No reference range established. Current interpretive data was last revised 2018. Testing performed by: [facility], [address] [place] [address]., [id number] Albumin Creatinine Ratio, Ur 17 1 - 29 mg/g GENEVIEVE FONSECA ([place]) Comment:Testing performed by : [facility], [address] [place] [address]., [id number] Urine 11/17/2020 11:0 0 AM CDT 11/17/2020 2:34 PM CDT Carla Harrell NP LAB URINE ORDERABLES Final R esult [facility]E [facility] ([place]) 1 [facility] Department [place] [address] * (ABNORMAL) Hemoglobin A1c (11/17/2020 10:48 AM [...] and children were not included. (Diabetes Care 31:6770-4202, 2008). The eAG is not equivalent to a fasting glucose. Blood 11/17/2020 10:4 8 AM CDT 11/17/2020 11:20 AM CDT Carla Kellie Harrell [employer] LAB BLOOD ORDERABLES Final R esult GENEVIEVE FONSECA ([place]) 1 [facility] Department [place] [address] * (ABNORMAL) Lipid panel (11/17/2020 10:48 AM [...] CDT 11/17/2020 11:20 AM CDT Carla Harrell [employer] LAB BLOOD ORDERABLES Final R esult GEN[facility]E FONSE[facility] ([place]) 1 [facility] Department [place] [address] * COLONOSCOPY (10/22/2020 10:34 AM CDT) Anatomical Region Laterality Modality Other Narrative Procedure Note Yunior Barber MD - 10/22/2020 10:34 AM CDT [facility] Patient Name: Dipika Tran Procedure Date: 10/22/2020 10:34 AM Date of : 1970 Admit Type: Outpatient Age: 50 Gender: Female Attending MD: Yunior Barber M.D. Room: [facility]COPY RO[facility] 2 Note Status: Finalized [...] scope was passed under direct vision. TheColonoscope [id number] was introduced through the anus and advanced [...] 10:34 AM Procedure Code(s): --- Professional --- 80787, Colonoscopy, flexible; diagnostic, including collection of specimen(s) by brushing or washing, when performed (separateprocedure) Diagnosis Code(s): --- Professional --- K57.30, Diverticulosis of large intestine without perforation orabscess without bleeding K64.9, Unspecified hemorrhoids CPT copyright 2019 [employer]. All rights reserved. The codes documented in this report are preliminary and upon shed hand reviewmay be revised to meet current compliance requirements. Recognized by the [employer] for promoting quality in endoscopy Yunior Barber MD ENDOSCOPY PROCEDURES Final Re sult from Last 3 Months or Most Recently Relevant to Health Maintenance Insurance [facility] Advance Directives For more information, please contact: [phone] * Full Code (Latest Code Status on File) Date Activated Date Inactivated Comments 11/20/2020 10:55 AM 11/20/2020 4:37 PM * Full Code Date Activated Date Inactivated Comments 10/22/2020 10:43 AM 10/22/2020 4:47 PM * Full Code Date Activated Date Inactivated Comments 10/22/2020 10:43 AM 10/22/2020 10:43 AM * Full Code Date Activated Date Inactivated Comments 10/20/2020 10:09 AM 10/20/2020 2:59 PM Care Teams Culinary Artist Relationship Specialty Start Date End Date Unknown, Notinfile PCP - General 04/03/23
--- OUTSIDE RECORDS SUMMARY | 2024-06-15 20:48 | XMS_ITS | Data Portability ---
Author Organization [facility] Address [address] [facility] [address] [facility] [place] [address] Care Team Providers Care Halftone Operator Name Role Phone JOY PICKARD Stranner Assessment Encounter Date Assessment Date Assessment LastModified [...] 2, meaningfu l use set 2024 025 eeSandboxxa [facility], [address] [place] [address], [address], 5 11:16:05 hepatitis B surface Ab, qualitati ve, serum 2024 025 [facility]eSandboxxa [facility], [address] [place] [address], [address], 5 11:16:05 HBsAg (hepatiti s B surface Ag), EIA, serum 2024 025 [facility], [address] [place] [address], [address], 5 11:16:05 RPR (rapid plasma reagin), serum 2024 025 [facility], [address] [place] [address] [place], [address], 5 11:16:06 Hepatitis C IgG Ab, qual, serum 2024 025 eemeryma [facility], [address] [facility], [facility], [place], [address], 11:16:06 vaginal pathogens panel, ALMITA+probe , vaginal fluid 2024 025 DANIELLE [facility], [address] [facility], [address], [place], [address], 06:37:27 urinalysi s, dipstick 2021 022 DANIELLE In-Office Order, Internal Use Only DO Not Attach Compendium DO Not Attach Compendium, Do Not Delete/merge, [id number] 15:34:00 culture, urine 2021 022 DANIELLE [facility], [address] [facility], [facility], [place], [address], 11:55:43 HbA1c (hemoglob in A1c), blood 2021 022 In-Office Order, Internal Use Only DO Not Attach Compendium DO Not Attach Compendium, Do Not Delete/merge, [id number] 11:55:36 HbA1c (hemoglob in A1c), blood 2020 022 DANIELLE [facility], [address] [facility], [facility], [place], [address], 03:10:52 albumin/c reatinine , mass ratio, urine 2020 022 DANIELLE [facility], [address] [facility], [facility], [place], [address], 03:10:52 CMP, serum or plasma 2020 022 DANIELLE [facility], [address], [place], [address], 03:10:53 CBC 2020 022 DANIELLE [facility], [address], [place], [address], 03:10:53 lipid panel, serum 2020 022 DANIELLE [facility], [address], [place], [address], 03:10:53 HbA1c (hemoglob in A1c), blood 2020 021 DANIELLE [facility], [address], [place], [address], 15:12:35 albumin/c reatinine , mass ratio, urine 2020 021 DANIELLE [facility], [address], [place], [address], 15:12:34 CMP, serum or plasma 2020 021 DANIELLE [facility], [address], [place], [address], 15:12:34 CBC w/ auto diff 2020 021 DANIELLE [facility], [address], [place], [address], 15:12:34 lipid panel, serum 2020 021 DANIELLE [facility], [address], [place], [address], 15:12:35 CBC 2020 021 DANIELLE [facility], [address], [place], [address], 1 15:12:34 Referral orthopedi c surgeon referral - Please contact patient to schedule appointme nt. Thank you 2020 DANIELLE Hernandez PA-C, [address] [facility] , [address], [place], [address], 2 11:53:46 pain managemen t referral - Please contact patient to schedule appointme nt. Thank you 2020 tonja Ferris MD, [address] [facility], [address], [place], [address], 2 16:43:03 gastroent erologist referral - Please call patient to schedule - Thank you 2020 DANIELLE Barber MD, [address] [facility] [address], [address], [place], [address], 15:14:17 Procedures None recorded. Surgeries None recorded. Imaging None recorded. Medication Orders Macrobid 100 mg capsule 2021 [facility]Pharmacy #[id number], [address] [place], [address], 2 08:26:19 acetamino phen 300 mg-codein e 30 mg tablet 2021 [facility]/Pharmacy #[id number], [address] [place], [address], 5 14:03:49 clobetaso l 0.05 % scalp solution 2021 [facility]/Pharmacy #[id number], 1 [place], [address], 5 14:04:30 diclofena c sodium 75 mg tablet,de layed release 2021 [id number] [address] [place], [address], 2 11:55:45 pregabali n 50 mg capsule 2021 022 [facility]/Pharmacy #6833, [address] [place], [address], 2 14:18:41 losartan 100 mg tablet 2021 022 [email or web address] [facility]/Pharmacy #6833, [address] [place], [address], 5 14:06:57 tramadol 50 mg tablet 2020 021 [facility] [address] [place], [address], 2 14:16:27 omeprazol e 20 mg capsule,d elayed release 2020 021 [facility]/Pharmacy #6833, [address] [place], [address], 1 15:22:41 omeprazol e 20 mg capsule,d elayed release 2020 021 [facility]/Pharmacy #6833, [address] [place], [address], 1 15:57:11 Cipro 500 mg tablet 2020 021 [email or web address] [facility]/Pharmacy #6833, [address] [place], [address], 14:43:28 Flagyl 500 mg tablet 2020 021 [email or web address] [facility]/Pharmacy #6833, [address] [place], [address], 1 14:44:43 tramadol 50 mg tablet 2020 021 [facility]/Pharmacy #[id number], [address] [facility], [place], [address], 14:16:27 Patient TargetsNo targets recorded. Patient Instructions Encounter Date Encounter Id Patient Instructions Last Modified By Organization Details Last Modified Time 08/25/2020 [id number] sore throat: car e instructions Not available 08/25/2020 16:24:57 Take all antibio tics prescribed to you. If any fever or increase in pain, call/return to office. 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 Referral for Diverticulosis of colon Please call [...] [facility] ([facility] Only) [address], [place], [address], 06/03/2021 06:33:45 05/13/19 22 05/12/2021 urina lysis , dipst ick Leukocytes Negati ve Not Available In-Office Order Internal Use Only DO Not Attach Compendium DO Not Attach Compendium, Do Not Delete/merge, [id number] 05/12/2021 11:46:42 05/13/19 22 05/12/2021 urina lysis [...] 05/12/2021 urina lysis , dipst ick Specific [place] 1.010 Not Available In-Off ice Order Internal [...] - 2 score abnormal Not Available [facility] ([facility]) [address] [place], [address], 03/21/2024 06:37:27 03/19/1903/20/2024 NUA B VAGIN ITIS PLUS (VG+) bvab 2 HIGH - 2 score abnormal Not Available [facility] ([facility]) [address] [facility], [place], [address], 03/21/2024 06:37:27 03/19/1903/20/2024 [facility] (VG+) megasphaera [...] prese nce of BV. Not Available [facility] ([facility]) [address] [place], [address], 03/21/2024 06:37:27 03/19/1903/20/2024 NUA B VAGIN ITIS PLUS (VG+) luis albicans, ALMITA NEGATI VE negati ve Not Available [facility] ([facility]) [address] [place], [address], 03/21/2024 06:37:27 03/19/19 25 03/20/2024 NUA B VAGIN ITIS PLUS (VG+) luis glabrata, ALMITA NEGATI VE negati ve Not Available [facility] ([facility]) [address] [facility] [place], [address], 03/21/2024 06:37:27 03/19/1903/21/2024 NUA B VAGIN ITIS PLUS (VG+) trich vag by ALMITA NEGATI VE negati ve Not Available [facility] ([facility]) [address] [facility], [place], [address], 03/21/2024 06:37:27 03/19/19 25 03/21/2024 NUA B VAGIN ITIS PLUS (VG+) chlamydia trachomatis, ALMITA NEGATI VE negati ve Not Available [facility] ([facility]) [address] [facility], [place], [address], 03/21/2024 06:37:27 03/19/1903/21/2024 NUA B VAGIN ITIS PLUS (VG+) neisseria gonorrhoeae, ALMITA NEGATI VE negati ve Not Available [facility] ([facility]) [address] [facility], [place], [address], 03/21/2024 06:37:27 07/07/19 22 07/03/2021 MAMMO , scree nic, digit al, bilat eral No observ ation record ed. [email or web address] [facility] [address], [place], [address], 07/07/2021 10:31:05 Result Notes None recorded. Problems Name Problem SNOMED Code Status Onset Date Resolution Date Notes Provider Name and Address Organization Details Recorded Time Lumbago with sciatica 636637767 Active 2015 Not Available [facility] 0 10:24:13 Diabetic peripher al neuropat hy 661577916 Active 2015 Not Available [facility] 0 10:24:13 Neck pain 03348477 Active 2016 Not Available [facility] 0 10:24:13 Cervical radiculo alistair 24810921 Active 2015 Not Available [facility] 0 10:24:13 Disorder of wrist 568727590 Active 2016 Not Available [facility] 0 10:24:13 Meralgia paresthe bora 83172391 Active 2015 Not Available [facility] 0 10:24:14 Anxiety 53271142 Completed 201506/03/2020 Carla Harrell APN, FNP-C Attn: Accounting ,[address] [facility], [place], [address] , [place] - [place] 1 15:43:43 Fibromya lgia 513683888 Active 2015 Not Available [facility] 0 10:24:14 Carpal tunnel syndrome of right wrist 25546027456 9108 Active [address] Not [address] [facility] 0 10:24:14 Pronator syndrome 387280469 Active 2016 Not [address] [facility] 0 10:24:14 Lumbago with sciatica 458234911 Active 2017 Not Available [facility] 0 10:24:13 Anxiety disorder 314843213 Active 2017 Not Available [facility] 0 10:24:13 Postoper ative infectio n 59782968 Completed 201706/03/2020 Carla Harrell APN, FNP-C Attn: Accounting ,[address] [facility], [place], [address] , [place] 1 15:44:05 Depressi ve disorder 99734581 Active 2020 Carla Harrell APN, FNP-C Attn: Accounting ,[address] [facility], [place], [address] , [place] 1 15:01:45 Gastroes ophageal reflux disease without esophagi tis 575236216 Active 2020 Carla Harrell APN, FNP-C Attn: Accounting ,[address] [facility], [place], [address] , [place] 1 15:50:34 Obesity 209164735 Active 2020 Carla Harrell APN, CORPORATE EXECUTIVE CHEF-C Attn: Accounting ,[address] [facility], [place], [place], [address] [place] [address] , [place] [facility] 1 15:59:58 Divertic ulosis of colon 016437504 Active 2020 Carla Harrell APN, CORPORATE EX[employer]IVE [employer]-C Attn: Accounting ,[address] [facility], [place], [place], [address] [place] [address] , [place] - [facility] 1 23:17:39 Carpal tunnel syndrome of left wrist 37847174701 9102 Active 2020 Carla Harrell APN, CORPORATE EXEC[employer]IVE CHE[employer]-C Attn: Accounting ,[address] [place], [place], [address] [place] [address] , [facility] - [facility] 1 15:21:46 Bronchit is 72495474 Completed 02/08/2016 Xiemna Ward PA-C Attn: Accounting ,[address] [place], [place], [address] [place] [address] , [facility] - [facility] 6 14:01:55 Lumbar radiculo alistair 825219219 Active seeing pain mgmt Not Available [facility] 0 10:24:13 Urinary tract infectio us disease 57801825 Completed 02/08/2016 Ximena Ward PA-C Attn: Accounting ,[address] [place], [place], [address] [place] [address] , [place] 6 14:02:43 Essentia l hyperten malvin 85959530 Active Not Available [facility] 0 10:24:13 Type 2 diabetes mellitus 80766929 Active Not Available [facility] 0 10:24:13 Hyperlip idemia 14607126 Active Not Available [facility] 0 10:24:14 Neuropat hy due to diabetes mellitus 877804235 Active Not Available [facility] 0 10:24:13 Degenera tion of lumbar interver tebral disc 95916418 Active 08/2015 Lumbar injectio n from Dr. Pollock Not Available [facility] 0 10:24:13 Tobacco user 905719346 Active Not Available [facility] 0 10:24:13 Schizoph grace 48139128 Active Not Available [facility] 0 10:24:13 Bipolar disorder 39367228 Active Not Available [facility] 0 10:24:13 Posttrau matic stress disorder 89974933 Active Not Available [facility] 0 10:24:13 Chronic obstruct darlene pulmonar y disease 47346099 Active Not Available [facility] 0 10:24:13 Acute bronchit is 44974755 Completed 02/08/2016 Ximena Ward PA-C Attn: Accounting ,[address] [place], [address] , [facility] - [facility] 6 14:01:46 Morbid obesity 569846211 Active Not Available [facility] 0 10:24:13 Bacteria l vaginosi s 762935738 Completed 02/08/2016 Ximena Ward PA-C Attn: Accounting ,[address] [place], [address] , [place] [facility] 6 14:02:36 Disorder of vitamin D 841077391 Active 2016 Not [address] [facility] 0 10:24:13 Tobacco dependen ce syndrome 54829192 Active 2016 Not [address] [facility] 0 10:24:13 Pain in right thumb 16753797635 31491 Completed 201601/16/2018 Carla Harrell APN, CORPORATE EXECUTIVE CHEF-C Attn: Accounting ,[address] [place], [address] , [place] 8 16:47:26 Notes:[facility], mission and discharge is 10/09-DX: Principal Lumbar radiculopathy. Problem Notes None recorded. Procedures Surgical History Date Name Laterality Status Provider Name and Address Organization Details Recorded Time 4 total replacement of hip completed Sahra Parker [place] 03/19/2024 14:14:44 2 Date of Last Mammogram completed Sahra Parker MA [place] - [facility] 03/19/2024 14:10:49 0 Date of Last Pap Smear completed Sahra Parker [place] 11/26/2019 12:09:11 7 Carpal tunnel surgery completed Betsy Saeed [place] - [facility], [facility] 10/14/2019 14:01:56 Tubal Ligation completed Jalyn Dahl [facility] 04/16/2014 11:56:56 Dilation and Curettage completed Jalyn Dahl [facility] 04/16/2014 11:56:56 Caesarean Section completed Sahra Parker [place] [facility], [facility] 05/06/2015 10:47:39 Imaging Results Imaging Date Name Status LastModified by Organiz ation Details LastModified Time 07/03/2021 MAMMO, screening, digital, bilateral completed [email or web address] [facility]- [address], [place], [address], 07/07/2021 10:31:05 Procedure Notes None recorded. Medical Equipment None Reported. Allergies Allergen ID Allergen Name Allergen Category Reaction Reaction Severity Criticality Documentation Date Start Date Code Code System Note Provider Name and Address Organization Details Recorded Time 042090 meloxicam medicatio n Not available Not available Not available 02/21/20172015 70916 RxNorm Other react ions and sever ities : 'Swel ling - Mild' . Not Available Not Available Not Available 014304 propranol ol medicatio n other moderate Not available 05/12/2021 8787 RxNorm stoma ch pain Not Available Not Available Not Available 7692 Mobic medicatio n other moderate Not available 01/29/2014 78311 9 RxNorm Not Available Not Available Not [...] Updated DateTime 1 165.1 cm 43.5 kg/m2 960827. 36 g 97 % 97 % 86 [...] Updated DateTime 1 165.1 cm 41.4 kg/m2 233803. 5 g 96 % 96 % 76 /min 16 /min 97.2 [degF] 136 mm[Hg] 94 mm[Hg] Betsy Saeed [facility] 1 14:53:03 Date Recorded Systolic blood pressure Diastolic blood pressure Provider Name and Address Organization Details Last Updated DateTime 01/29/2021 132 mm[Hg] 88 mm[Hg] Carla Harrell APN, CHON-C Attn: Accounting,[address] [place], [address], [facility] 01/29/2021 15:10:19 Date Recorded Body height Body mass index (BMI) Body weight Oxygen saturation Oxygen saturation in Arterial blood by Pulse oximetry Heart rate Respiratory rate Body temperature Systolic blood pressure Diastolic blood pressure Provider Name and Address Organization Details Last Updated DateTime 2 165.1 cm 40.9 kg/m2 267780. 72 g 94 % 94 % 106 /min 16 /min 97.3 [degF] 130 mm[Hg] 80 mm[Hg] Betsy Saeed [facility] 2 11:43:07 Date Recorded Body height Body mass index (BMI) Body weight Heart rate Oxygen saturation Oxygen saturation in Arterial blood by Pulse oximetry Body temperature Systolic blood pressure Diastolic blood pressure Provider Name and Address Organization Details Last Updated DateTime 5 165.1 cm 35.5 kg/m2 94181.9 7 g 77 /min 97 % 97 % 98.5 [degF] 139 mm[Hg] 87 mm[Hg] Sahra Parker MA [facility] 5 13:56:51 Social History Question Answer Notes LastModified by Organizat ion Details LastModified Time Tobacco Smoking Status Current Every Day Smoker N[place], [facility] 01/29/2014 15:47:01 Do You Have An Advance [...] available 05/06/2015 What Is Your Occupation? Unemployed [email or web address] Information not available 10/14/2019 Are There Any [...] Anxious, Or Unable To Sleep At Night)? [id number] Information not available 06/03/2020 Do You Use [...] hypertension [email or web address] Not available 14:47:36 Father Malignant neoplasm of prostate crexford Not available 2015 14:47:36 Father Myelodysplas tic syndrome (clinical) 76 77 [email or web address] Not available 14:21:27 Paternal Grandmother Hypertensive disorder crexford Not available 2015 14:47:36 Maternal Grandmother Malignant tumor of pelvis bladde r [email or web address] Not available 10/14/2019 14:19:17 Maternal Grandmother Diabetes mellitus crexford Not available 2015 14:47:36 Paternal Aunt Malignant tumor of breast 68 68 Not available 09/21 14:18:23 Medical History Condition Response Coronary Artery Disease N Other N Atrial Fibrillation N High Blood Pressure Y Blood Clots N COPD Y Depression Y Headaches/Migraines Y Anxiety Disorder Y Muscle, Joint, or Bone Problems Y Arthritis Y Polyps N Infertility N Acid Reflux (GERD) Y Cancer N Stroke N Headaches Y Kidney or Bladder Problems N Acne N Have you had a mammogram in the last yea r? N Eating Disorder N Skin Problems Y Asthma Y Allergies Y Have you had a PSA blood test in the las t year? N Substance Abuse Y Hepatitis N Breast Cancer N Lung Disease N Breast Problem N Anesthesia Complications N ADHD N Endometriosis N High Cholesterol Y Liver Disease N Schizophrenia Y Thyroid Problems N GI Problems N Anemia N Heart Attack (DC) N Diabetes Y Ovarian Cancer N Blood Transfusions N Seizures/Epilepsy N Have you had a colonoscopy in the last 1 0 years? Y Abuse/Domestic Violence N Heart Disease N Pre-Eclampsia N Heart [...] virus, quadrivalent, PF 9 completed Not Available [facility] 07/03/2021 19:41:06 Influenza, split virus, quadrivalent, preservative 9 completed Not Available [facility] 07/03/2021 19:41:06 Influenza, split virus, quadrivalent, PF 0 completed Not Available [facility] 07/03/2021 19:41:06 Influenza, split virus, quadrivalent, preservative 0 completed Not Available [facility] 07/03/2021 19:41:06 Pneumococcal conjugate PCV 13 4 completed Not Available [facility] 07/03/2021 19:41:06 Tdap 2 completed Not Available [facility] 07/03/2021 19:41:06 Influenza, split virus, quadrivalent, preservative 7 completed Not Available [facility] 03/09/2019 02:39:52 pneumococcal polysaccharide PPV23 7 completed Not Available [facility] 03/09/2019 02:46:08 Influenza, split virus, quadrivalent, preservative 7 completed Not Available [facility] 03/09/2019 02:34:26 Influenza, split virus, quadrivalent, preservative 8 completed Not Available [facility] 03/09/2019 02:36:00 Influenza, split virus, trivalent, preservative 4 completed Not Available [facility] 03/09/2019 02:51:03 Influenza, split virus, quadrivalent, PF 1 completed Betsymoira barker, [facility] 01/29/2021 16:43:42 Tdap 5 completed JOY PICKARD MD Attn: Accounting,[address] [facility], [place], [address], [facility], [facility] 03/19/2024 14:47:46 Pneumococcal conjugate PCV20, polysaccharide IYP417 conjugate, adjuvant, PF 5 completed JOY PICKARD MD Attn: Accounting,[address] [facility], [place], [address], [facility] 03/19/2024 14:47:46 Past Encounters Encounter ID Performer Location Encounter Start Date Encounter Closed Date Diagnosis/Indication Diagnosis SNOMED-CT Code Diagnosis ICD10 Code Diagnosis Note [id number] Tal (Adult Med) [address] [place] [address] 01/29/2014 14:25:27 01/29/2014 16:34:25 Essential hypertension 18842953 well controlled . Continue Medication s Type 2 berta betes mellitus 11014251 well controlled . Last HBA1C was 5.7 on 09/10/13. Continue medication s. Hyperlipidemia 37695941 continue Simvastati n. Repeat the Lipid panel. Neuropathy due to diabetes mellitus 816507822 Patient takes Gabapentin 600 mg po 4 times daily. Degenerati on of lumbar intervertebral disc 88227515 Following Pain management and . Currently on Hydrocodon e prescribed by . Tobacco user 054285553 a dvised patient to quit smoking. Chronic ob structive pulmonary disease 82364836 continue Symbicort and Proair. Needs infl uenza immunization 579685480 [id number] TEMITOPE Montaño (Adult Med) [address] [place] [address] 04/16/2014 10:41:59 04/16/2014 12:32:17 Bronchitis 10951300 Afebrile.S aturating 98% on room air. will give Z pack. Continue Symbicort and Proair. Advised patient to use otc Mucinex. Advised patient to quit smoking. [id number] Dayana Alexander [facility] (Adult Med) [address] [place] [address] 06/05/2014 09:54:53 06/05/2014 11:15:32 Essential hypertension 63348525 well controlled . Continue Medication s Type 2 berta betes mellitus 58591143 well controlled . Last HBA1C was 6.3 Continue medication s. Hyperlipidemia 86707501 Increase the Simvastati n to 40 mg po daily Repeat the Lipid panel in 4 months. Chronic ob structive pulmonary disease 76649573 continue Symbicort and Ventolin.. Tobacco user 930478851 a dvised patient to quit smoking. [id number] [facility] [address] [place] [address] 09/11/2014 14:45:48 09/11/2014 16:52:31 Urinary tract infectious disease 95890841 Starting cipro 250 mg bid for 3 days. Continue fluids. Heat or ice pack prn back discomfort . [id number] [facility] (Adult Med) [address] [place] [address] 10/06/2014 13:44:51 10/06/2014 14:57:02 Essential hypertension 69785384 well controlled . Continue Medication s Type 2 berta betes mellitus 68830161 well controlled . Last HBA1C was 5.9 Continue medication s. Hyperlipidemia 15527912 LDL well controlled . Continue Simvastati n. Repeat the Lipid panel in 4 months. Chronic ob structive pulmonary disease 74620817 continue Symbicort and Ventolin. Advised patient to quit smoking. Neuropathy due to diabetes mellitus 255861808 Patient is c/o neuropathi c pains in the legs.she is not taking the Neurantin. Patient is waiting to see the new Neurologis t. will refill the Gabapentin . [id number] Cally Parada (Adult Med) [address] [place] [address] 12/15/2014 14:58:22 12/15/2014 15:53:26 Acute bronchitis 07795910 J20.4 Patient to try mucinex otc to loosen secretions . Tessalon perles prn and zpak to start in 3 days if not better. [id number] [facility] [address] [place] [address] 03/10/2015 10:19:15 03/11/2015 15:04:03 Type 2 diabetes mellitus 21265221 E11.9 well controlled . Last HBA1C was 5.7. Continue same medication s. Essential hypertension 13038160 I10 well controlled . Continue Medication s Hyperlipidemia 51784494 E78.2 LDL well controlled . Continue Simvastati n. Chronic ob structive pulmonary disease 29882199 J44.9 continue Symbicort and Ventolin. Advised patient to quit smoking. Morbid obesity 448181444 E66.01 Advised 1500 calories low fat,low cholestero l,low carb diiabetic diet,regul ar exercise and weight reduction. Tobacco user 579211128 Z 72.0 advised patient to quit smoking. [id number] Rachel Parada (ADDICTION NURSE) [address] [place] [address] 05/06/2015 10:24:45 05/06/2015 11:31:24 Gynecologic examination 87761962 Z01.419 Venereal d isease screening 749572280 Z11.3 RTO one week for results. Screening for malignant neoplasm of breast 156414249 Z12.39 Screening for malignant neoplasm of colon 819816744 Z12.11 Has appointmen t in [place] 05/2015. Bacterial vaginosis 4197 04267 N76.0 Diagnosis d/w pt. Rx sent to pharmacy. Instructio dayami discussed. [id number] aRchel Parada (ADDICTION NURSE) [address] [place] [address] 05/20/2015 14:35:33 06/11/2015 17:28:40 Gynecologic examination 21005189 Z01.419 Pap was negative with negative hr-HPV, dwp. Venereal d isease screening 612816835 Z11.3 Vaginal culture was negative for gonorrhea, chlamydia, and trichomona s. STD panel was completely negative. Individual test results d/w pt. [id number] Carla Harrell APN, [facility] (Adult Med) [address] [place] [address] 03/16/2016 10:45:24 03/16/2016 12:17:03 Type 2 diabetes mellitus 98468242 E11.9 Last HBA1C was 5.7. Continue same medication s. Dr David Persaud said she was no longer DM, Lab today. Essential hypertension 17827285 I10 well controlled . Continue propranolo l and losartan Hyperlipidemia 45059572 E78.2 LDL well controlled . Continue Simvastati n. Chronic ob structive pulmonary disease 58574328 J44.9 continue Symbicort and Ventolin. Advised patient to quit smoking. Morbid obesity 175036638 E66.01 advised 1500 calorie low fat, low cholestero l, low carb diet, regular exercise and weight reduction. Lumbar radiculopathy 128 863923 M54.16 please have records sent from Dr Persaud Adult heal th examination 896027943 Z00.00 Well woman exam advised, keep yearly apt. Conjunctivitis 3105693 H 10.9 Tobacco de pendence syndrome 11039191 F17.290 Continue to cut back on smoking. Upper resp iratory infection 75448535 J06.9 [id number] Carla Harrell APN, [facility] (Adult Med) [address] [place] [address] 04/18/2016 14:46:15 04/18/2016 16:07:09 Type 2 diabetes mellitus 72958191 E11.9 Last HbA1C was 5.9. Continue same medication s. Essential hypertension 80917752 I10 well controlled . Continue propranolo l and losartan. Chronic ob structive pulmonary disease 61803930 J44.9 continue Symbicort and Ventolin. Advised patient to quit smoking. Morbid obesity 087647978 E66.01 advised 1500 calorie low fat, low cholestero l, low carb diet, regular exercise and weight reduction. Tobacco de pendence syndrome 04830674 F17.290 Continue to cut back on smoking. Disorder of vitamin D 38 0332223 E56.9 When out of refills of weekly replacemen t, have blood drawn. Administra tion of influenza vaccine 36610331 Z23 [id number] Carla Harrell APN, LUIS [facility] (Adult Med) [address] [place] [address] 08/17/2016 15:04:52 08/18/2016 09:15:45 Essential hypertension 95668509 I10 well controlled . Continue propranolo l and losartan. Disorder of vitamin D 38 0035419 E56.9 When out of refills of weekly replacemen t, have blood drawn. Type 2 berta betes mellitus 22711256 E11.9 Last HbA1C was 5.9. Continue ASA, metformin Morbid obesity 500718486 E66.01 advised 1500 calorie low fat, low cholestero l, low carb diet, regular exercise and weight reduction. Bipolar disorder 7687552 4 F31.9 cont medication s as prescribed by Tammy Feliz at [facility]; f/u with [facility] Administra tion of pneumococcal vaccine 66812476 Z23 Tobacco de pendence syndrome 71259047 F17.290 Continue to cut back on smoking. Chronic ob structive pulmonary disease 14724544 J44.9 continue aerospan and Ventolin. Advised patient to quit smoking. Hyperlipidemia 80916930 E78.2 LDL well controlled . Continue Simvastati n. Neuropathy due to diabetes mellitus 201035621 E11.[address] Jaeger. Pain in right thumb 1076 348769 066081 M79.644 fell on 08/11; landed on right hand trying to catch herself; Medication monitoring 39 1655259 Z51.81 Pain contract signed 03/16/16On tramadol-M ay need refill sooner due to increased pain from fall; no refills until drug screen; dwp no more than 4 tramadol per day. will be picking up today; May not refill until 09/07 at earliest if drug screen clean. Lesion of skin of face 0386397672 06 L98.9 [id number] Carla Harrell APN, [facility] (Adult Med) [address] [place] [address] 10/19/2016 14:41:02 10/20/2016 13:52:15 Pain in right thumb 4023145406 487829 M79.644 fell on 08/11; landed on right hand trying to catch herself; reprinted xray orders, KEON Acute maxi llary sinusitis 28672261 J01.00 Conjunctivitis 6536631 H 10.9 [id number] Carla Harrell APN, [facility] (Adult Med) [address] [place] [address] 12/19/2016 14:49:29 12/19/2016 17:54:17 Essential hypertension 00854209 I10 well controlled . Continue propranolo l and losartan. Hyperlipidemia 57843894 E78.2 LDL well controlled . Continue Simvastati n. Type 2 berta betes mellitus 38845389 E11.9 last a1c was 6.0 Chronic ob structive pulmonary disease 99360246 J44.9 Smoking cessation encouraged . Anxiety 78515309 F41.9 short term to help with anxiety state and not sleeping Administra tion of influenza vaccine 71545548 Z23 [id number] Carla Harrell APN, LUIS Parada (Adult Med) [address] [place] [address] 06/20/2017 15:35:33 06/21/2017 08:44:28 Chronic obstructive pulmonary disease 16308791 J44.9 Smoking cessation encouraged . Type 2 berta betes mellitus 94802781 E11.9 last a1c was 6.0, needs labs done Hyperlipidemia 63863309 E78.2 LDL well controlled . Continue Simvastati n. Essential hypertension 46897602 I10 well controlled . Continue propranolo l and losartan. Tobacco de pendence syndrome 71216591 F17.290 Continue to cut back on smoking. Morbid obesity 428442073 E66.01 advised low fat, low cholestero l, low carb diet, regular exercise and weight reduction. Bipolar disorder 5002766 4 F31.9 had medication s prescribed by Tammy Feliz at [facility], was fired due to no shows, was in hospital Schizophrenia 63535477 F 20.[address], not out of medication yet Fibromyalgia 178520994 M 79.7 diagnosed at [facility] about 8 years ago, dwp doing yoga or other exercises to help stretch daily Dysuria 22114011 R30.0 Lumbago with sciatica 20 7041428 M54.41 M54.42 may cont with naproxen, seeing pain mgmt for injections [id number] Carla Harrell APN, LUIS Parada (Adult Med) [address] [place] [address] 09/27/2017 11:18:27 09/27/2017 14:25:26 Contact dermatitis 08410008 L25.9 dwp to not use off bug spray as she is likely allergic, will advise to use steroid cream topically to skin Pruritic disorder 241185 002 L29.9 rosa arms and posterior neck, dwo to avoid scratching skinwill provide vistaril to help with itching [id number] Carla Harrell APN, FNP-[facility] (Adult Med) [address] [place] [address] 11/13/2017 11:41:02 11/13/2017 15:22:16 Administration of influenza vaccine 86269305 Z23 [facility] handout provided Anxiety disorder 9080192 06 F41.9 June cont prn vistaril until seen by psych, needs records release signed Loss of consciousness 41 4280012 R55 pt is poot historian and has unknown seizure hx, possibly had once before in her life; states her friends watched her pass out ; seizure hx with biological sister Dysuria 97684005 R30.0 urine pos for nitrates, blood and leuk, will send for culture as well as treat with [id number] Carla Harrell APN, FNP-[facility] (Adult Med) [address] [place] [address] 2018 16:12:43 01/17/2018 11:40:22 Type 2 diabetes mellitus 57274491 E11.9 last a1c was 5.6 in 09/2017 Essential hypertension 91991410 I10 well controlled . Continue propranolo l 40 mg tid and losartan. Hyperlipidemia 15491597 E78.2 LDL well controlled . Continue Simvastati n. Disorder of vitamin D 38 3772301 E56.9 recheck Chronic ob structive pulmonary disease 16564566 J44.9 Smoking cessation encouraged . Tobacco de pendence syndrome 70789412 F17.290 Continue to cut back on smoking. Morbid obesity 695807258 E66.01 advised low fat, low cholestero l, low carb diet, regular exercise and weight reduction. Lumbago with sciatica 20 1441899 M54.41 M54.42 cont with pain mgmt as well, may have flexeril prn Screening for malignant neoplasm of colon 323852574 Z12.11 [id number] Carla Harrell APN, FNP-[facility] (Adult Med) [address] [place] [address] 08/14/2018 11:23:15 08/15/2018 12:54:16 Type 2 diabetes mellitus 03397984 E11.9 last a1c was 5.6 in 09/2017, dwp to cont metformin and needs labs done today Essential hypertension 82590439 I10 stable; Continue propranolo l 40 mg tid and losartan. Hyperlipidemia 42964347 E78.2 needs lab, Continue Simvastati n. Disorder of vitamin D 38 8287125 E56.9 recheck level Chronic ob structive pulmonary disease 39161395 J44.9 Smoking cessation encouraged .cont inhalers- pt not sure which ones she has right now as they were changing so much. Tobacco de pendence syndrome 03961988 F17.290 Continue to cut back on smoking. Morbid obesity 824025883 E66.01 advised low fat, low cholestero l, low carb diet, regular exercise and weight reduction. Lumbago with sciatica 20 7801825 M54.41 M54.42 cont with pain mgmt as well, may have flexeril prn Fibromyalgia 894469601 M 79.7 diagnosed at [place] about 8 years ago, dwp doing yoga or other exercises to help stretch daily; cont duloxetine 60 mg, 30 mg total of 90 mg Lumbar radiculopathy 128 245118 M54.16 was seeing pain mgmt- needs new referral; no more refills of tramadol; ok for lyrica till seen [id number] Carla Harrell APN, [employer] [facility] (Adult Med) [address] [place] [address] 01/24/2019 11:46:28 01/25/2019 08:48:26 Type 2 diabetes mellitus 85356808 E11.9 last a1c was 5.6 in 09/2017, dwp to cont metformin and needs labs done today Essential hypertension 21176926 I10 stable; Continue propranolo l 40 mg tid and losartan. Hyperlipidemia 52988516 E78.2 needs lab, Continue Simvastati n. Disorder of vitamin D 38 2685573 E56.9 recheck level Chronic ob structive pulmonary disease 64025563 J44.9 Smoking cessation encouraged .cont inhalers- pt not sure which ones she has right now as they were changing so much. Tobacco de pendence syndrome 22554273 F17.290 Continue to cut back on smoking. Morbid obesity 213466579 E66.01 advised low fat, low cholestero l, low carb diet, regular exercise and weight reduction. Lumbago with sciatica 20 6836887 M54.41 M54.42 cont with pain mgmt as well, may have flexeril prndwp to call if needing new referral for pain mgmt, was getting injections Fibromyalgia M 77.7 diagnosed at [place] several ago, dwp doing yoga or other exercises to help stretch daily; cont duloxetine 60 mg, 30 mg total of 90 mg Lumbar radiculopathy 128 M54.16 was seeing pain mgmt- needs new referral?; no more refills of tramadol; ok for lyrica till seen by pain mgmt Screening for malignant neoplasm of colon 965784733 Z12.11 Stool kit provided with [employer] stock for use. Anxiety disorder F4.28 June cont prn vistaril until seen by psych [id number] Carla Harrell APN, [employer] [facility] (Adult Med) [address] [place] [address] 04/25/2019 16:01:22 04/29/2019 08:04:02 Type 2 diabetes mellitus 48115885 E11.9 last a1c was 5.6 in 09/2017, dwp to cont metformin and needs labs done today Essential hypertension 59033979 I10 stable; Continue propranolo l 40 mg tid and losartan. Hyperlipidemia 66128004 E78.2 needs lab, Continue Simvastati n. Disorder of vitamin D 38 3209899 E56.9 recheck level Chronic ob structive pulmonary disease 24026023 J44.9 Smoking cessation encouraged .cont inhalers- pt not sure which ones she has right now as they were changing so much. Anxiety disorder F4.9 June cont prn vistaril until seen by psych Tobacco user 030031181 Z 72.0 Smoking cessation encouraged . Lumbar radiculopathy 128 M54.16 was seeing pain mgmt- needs new referral?; no more refills of tramadol; ok for lyrica till seen by pain mgmt Screening for malignant neoplasm of breast 446669185 Z12.39 mammogram order given Health con dition feared but not present [id number] 34996 Z71.1 pt believes she had a stroke when she was arguing with kids a bout 2 months ago and now believes has droopy face on right and limp on left leg; neuro exam wnl dwp stroke is typically unilateral in nature, may be having more back pain; pt feels her stroke was more because she used to go to [place] at 10 pm to go shopping and her put her on a budget and she is upset [id number] Carla Harrell APN, [employer] [facility] (Adult Med) [address] [place] [address] 08/29/2019 08:20:50 08/30/2019 10:01:10 Type 2 diabetes mellitus 16443791 E11.9 last a1c was 5.8, dwp to cont metformin Essential hypertension 90726892 I10 stable; Continue propranolo l 40 mg tid and losartan. Hyperlipidemia 33544683 E78.2 needs lab, Continue Simvastati n. Chronic ob structive pulmonary disease 35716916 J44.9 Smoking cessation encouraged .cont inhalers- pt not sure which ones she has right now as they were changing so much. Anxiety disorder 5478538 06 F41.9 May cont prn vistaril; Tobacco user 354233915 Z 72.0 Smoking cessation encouraged . Lumbar radiculopathy 128 556871 M54.16 was seeing pain mgmt- needs new referral?; no more refills of tramadol; ok for lyrica till seen by pain mgmt going to [facility], got a shot and goes back next week for second shot Depressive disorder 1678 9007 F32.9 dwp to call [facility] to make apt [id number] Rachel Zeke [facility] (ADDICTION NURSE) [address] [place] [address] 10/14/2019 13:45:25 10/15/2019 07:06:42 Gynecologic examination 08570956 Z01.419 Last pap done 05/06/15 was negative with negative hr-HPV. Pap due. Pap done. Venereal d isease screening 792024844 Z11.3 Telephone visit 2 weeks for results. Screening for malignant neoplasm of breast 843091158 Z12.39 Last 2013. Mother with breast CA Screening for malignant neoplasm of colon 029657075 Z12.11 Needs colonoscop y. Has FH colon CA, breast CA Family his tory of malignant neoplasm of breast in first degree relative 279057912 Z80.3 Mother with both breast and colon CA. Family his tory of cancer of colon 780962826 Z80.0 Mother with both breast and colon CA. Reduced libido 7630196 R 68.82 Male and female sexual response discussed. Pt. will work with to improve sex life. Body mass index 40+ - severely obese 173471688 Z68.41 nutrition and exercise discussed. Cigarette smoker 0737169 7 F17.210 Cessation discussed. Menopausal flushing 1983 83223 N95.1 Inability to give estrogen with smoking due to increased risk of blood clots like a PE, CVA, DC, DVT dwp. If pt. can stop smoking x 6 mo, she could take estrogen, dwp. [id number] Rachel Alanis Tal DAMICO (ADDICTION NURSE) [address] [place] [address] 11/26/2019 09:18:48 11/28/2019 11:49:12 Trichomonal vulvovaginitis 39910270 A59.01 Diagnosis d/w pt. Rx sent to pharmacy. Instructio dayami discussed. Pt. instructed to have her partner(s) tested and treated. No sex until negative RAMAKRISHNA. RTO 3 weeks for RAMAKRISHNA. [id number] Carla Harrell APN, [employer] [facility] (Adult Med) [address] [place] [address] 12/03/2019 08:20:57 12/04/2019 06:39:25 Type 2 diabetes mellitus 72962265 E11.9 last a1c was 5.8, dwp to cont metformin Essential hypertension 20316501 I10 stable; Continue propranolo l 40 mg tid and losartan. Hyperlipidemia 59472206 E78.2 Continue Simvastati n. Chronic ob structive pulmonary disease 61305764 J44.9 Smoking cessation encouraged .cont inhalers-p rn albuterol Anxiety disorder 0251924 06 F41.9 May cont prn vistaril; Tobacco user 288142414 Z 72.0 Smoking cessation encouraged . Lumbar radiculopathy 128 262127 M54.16 was seeing pain mgmt- needs new referral?; no more refills of tramadol; ok for lyrica till seen by pain mgmt going to [facility], Depressive disorder 1778 9007 F32.9 cont with psychiatry [id number] Carla Harrell APN, LU[facility] Parada (Adult Med) [address] [place] [address] 03/06/2020 09:09:45 03/10/2020 07:33:26 Type 2 diabetes mellitus 11247616 E11.9 last a1c was 6.2, dwp to cont metformin Essential hypertension 71975250 I10 stable; Continue propranolo l 40 mg tid and losartan. Hyperlipidemia 30952939 E78.2 Continue Simvastati n. Chronic ob structive pulmonary disease 77326110 J44.9 Smoking cessation encouraged .cont inhalers-p rn albuterol Anxiety disorder 3845948 06 F41.9 June cont prn vistaril; Tobacco user 521422165 Z 72.0 Smoking cessation encouraged . Lumbar radiculopathy 128 772081 M54.16 was seeing pain mgmt- no more refills of tramadol; ok for lyrica till seen by pain mgmt- going to [facility] Depressive disorder 3548 9007 F32.9 cont with psychiatry Endocrine/ metabolic screening 369338390 Z13.532 [id number] Carla Harrell APN, FNP-C [facility] (Adult Med) [address] [facility] [address] 04/06/2020 08:51:00 04/07/2020 09:08:02 Chronic obstructive pulmonary disease 44135847 J44.9 Smoking cessation encouraged .cont inhalers-p rn albuterol Acute exac erbation of chronic obstructive pulmonary disease 643412290 J44.1 flare triggered by weather, will start medrol dose pack, pt requests cough pills, also rx nebulizer, advised pt to call if not improving Tardive dyskinesia 24956 9007 G24.01 was seeing neuro in [place] and would like one closer Degenerati on of lumbar intervertebral disc 84122240 M51.36 was seeing pain mgmt, pt requests tylenol ER 650 mg [id number] Carla Harrell APN, FNP-C [facility] (Adult Med) [address] [place] [address] 06/03/2020 15:12:10 06/04/2020 08:50:14 Adult health examination 366552429 Z00.01 Encouraged routine [employer], vision, dental exams, well balanced diet. Screening for malignant neoplasm of colon 000283920 Z12.11 Stool kit provided with [employer] dayami for use. Disorder of vitamin D 38 5974495 E56.9 recheck level Essential hypertension 90094103 I10 elevated today, missing mid day dosing; dwp importance of med compliance and risk of adverse cardiac event Continue propranolo l and losartan. will change dosing to both meds to bid dosing with a slight increase to propranolo l as well: losartan 25 mg 2 tablets bid and propranolo l 60 mg bid Fibromyalgia 296359159 M 77.7 diagnosed at [place] several ago, dwp doing yoga or other exercises to help stretch daily; cont duloxetine 60 mg, 30 mg total of 90 mg pt is to see neuro in June and would like to resume celebrex and lyrica prior to that visit so meds can be adjusted when she goes, dwp options and will resums, lyrica at lower dose Hyperlipidemia 25242846 E78.2 Continue Simvastati n. Morbid obesity 636277805 E66.01 advised low fat, low cholestero l, low carb diet, regular exercise and weight reduction. Tobacco de pendence syndrome 95823977 F17.290 Continue to cut back on smoking. Type 2 berta betes mellitus 27074139 E11.9 last a1c was 6.2, today 6.1; dwp to cont metformin Chronic ob structive pulmonary disease 17362087 J44.9 Smoking cessation encouraged cont inhalers-p rn albuterol [id number] Carla Harrell APN, [employer] [facility] (Adult Med) [address] [place] [address] 08/25/2020 15:48:39 08/25/2020 18:49:39 Sore throat 245861987 J02.9 dwp to increase fluids, OTC cold med prn, rest, good handwashin g Diverticul osis of colon 031544890 K57.[address] from ER, increasing pain, dwp needs to follow up with GI or go to ER if pain worsening, justen lcover for bacterial infection with cipro and flagyl Degenerati on of lumbar intervertebral disc 60571268 M51.36 was seeing pain mgmt, but has not been able to go back;cont prn tylenol ER 650 mg, will send smll rx for severe pain only [id number] Carla Harrell APN, LUIS [facility] (Adult Med) [address] [place] [address] 10/27/2020 14:58:17 10/28/2020 10:49:48 Degeneration of lumbar intervertebral disc 03404300 M51.36 was seeing pain mgmt, but has not been able to go back;cont prn tylenol ER 650 mg,will send new referral Essential hypertension 00507575 I10 improved dwp importance of med compliance and risk of adverse cardiac event Continue losartan 25 mg 2 tablets bid and propranolo l 60 mg bid Hyperlipidemia 29397035 E78.2 Continue Vasyltabrook n. Chronic ob structive pulmonary disease 66788700 J44.9 Smoking cessation encouraged cont inhalers-p rn albuterol Morbid obesity 675768422 E66.01 advised low fat, low cholestero l, low carb diet, regular exercise and weight reduction. Type 2 berta betes mellitus 40896940 E11.9 last a1c was 6.1; dwp to cont metformin Tobacco de pendence syndrome 41716068 F17.290 Continue to cut back on smoking. Gastroesop hageal reflux disease without esophagitis 559895696 K21.9 cont ppi, follow up with GI as planned Obesity 475391603 E66.9 advised low fat, low cholestero l diet, regular exercise and weight reduction. Diverticul osis of colon 777555853 K57.[address] from ER, recent colonoscop ydiet changes advised;dw p needs to follow up with GI [id number] Carla Harrell APN, LU[facility] (Adult Med) [address] [place] [address] 01/29/2021 14:29:21 02/01/2021 10:44:07 Degeneration of lumbar intervertebral disc 45657060 M51.36 was seeing pain mgmt, but has not been able to go back;cont prn tylenol ER 650 mg,waiting on referral Essential hypertension 20516718 I10 improved with rest dwp importance of med compliance and risk of adverse cardiac event Continue losartan 25 mg 2 tablets bid and propranolo l 60 mg bid Hyperlipidemia 73408704 E78.2 Continue Vasyltabrook n. Chronic ob structive pulmonary disease 35468859 J44.9 Smoking cessation encouraged cont inhalers-p rn albuterol Morbid obesity 068249647 E66.01 advised low fat, low cholestero l, low carb diet, regular exercise and weight reduction. Type 2 berta betes mellitus 32408457 E11.9 last a1c was 5.8; dwp to cont metformin Tobacco de pendence syndrome 67144652 F17.290 Continue to cut back on smoking. Gastroesop hageal reflux disease without esophagitis 673479163 K21.9 cont ppi, follow up with GI as planned Diverticul osis of colon 607465348 K57.[address] from ER, recent colonoscop ydiet changes advised;dw p needs to follow up with GI Administra tion of influenza vaccine 00959947 Z23 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 4432687193 36880 G56.02 was ready for surgery then covid halted it, needs new referral to ortho [id number] Carla Harrell APN, [employer] [facility] (Adult Med) [address] [place] [address] 05/12/2021 11:22:54 05/13/2021 06:21:44 Psoriasis of scalp 328574337 L40.9 patch to forehead, since last July, has been trying to get it to go away using topicalspr n clobetasol Degenerati on of lumbar intervertebral disc 10032827 M51.36 was seeing pain mgmt, but has not been able to go back;pt states tramadol is no longer helping her, will change to tylenol with codeine until she can see pain mgmtpt also requesting increase to lyricawait ing on referral, pt is willing to do PT in order to get into pain mgmt Essential hypertension 26662276 I10 pt has been taking 300 mg losartan bid on her own, was advised that was incorrect dosing. dwp importance of med compliance and risk of adverse cardiac event Continue losartan 100 mg bid Gastroesop hageal reflux disease without esophagitis 284398798 K21.9 cont ppi, follow up with GI as planned Lumbago with sciatica 20 2010276 M54.41 M54.42 trying to get back into pain mgmtmay have flexeril prn,advise d diclofenac prn,cont lyricadwp to call if needing new referral for pain mgmt, was getting injections Type 2 berta betes mellitus 71223093 E11.9 last a1c was 5.8; dwp to cont metformin Dysuria [id number] R30.0 urine pos for nitrates, blood and leuk, will send for culture as well as treat with macrobid [id number] MD Tal SPRINGER (ADDICTION NURSE) [address] [place] [address] 03/19/2024 13:03:25 03/22/2024 16:31:12 Positive screening for depression on PHQ-9 (Patient Health Questionnaire 9) [id number] 06611 Z13.31 - Referred to at [facility] by PCP Routine gy necologic examination done [id number] 9101 Z01.419 - Reviewed risks for infection and cancer; ordered screening tests as appropriat e- Patient to follow up with PCP for routine cardiovasc ular disease screening- UTD on cervical cancer screening until 09/2024 Screening for malignant neoplasm of breast [id number] Z12.31 - Mammo ordered by PCP Venereal d isease screening [id number] Z11.3 - STI screening including serum testing per patient request Administra tion of diphtheria, pertussis, and tetanus vaccine [id number] Z23 Administra tion of pneumococcal vaccine [id number] Z23 Health Concerns Section Related Observation LastModified [...] 2020 (MEDICAID REPLACEMENT - HMO) Dipika Tran [id number] Dipika Tran 10/27/2020 1 [facility] - DOS ON OR AFTER 20 (MEDICAID REPLACEMENT - HMO) Dipika Tran [id number] Dipika Tran 01/29/2021 1 [facility] (MEDICAID HMO) [id number] Dipika Tran [id number] Dipika Tran 05/12/2021 1 [facility] (MEDICAID HMO) [id number] Dipika Tran [id number] Dipika Tran 03/19/2024 1 [facility] (MEDICAID HMO) [id number] Dipika Tran [id number] Dipika Marc Notes Date Note Type Note Provider Name and Address Organization Details Recorded Time 1 text/html has been in pain for the last month. Pt claim it large intestine. would like to be referred to have colonoscopy Carla Harrell APN, FNP-C Attn: Accounting,[address] [facility], [place], [address], [facility] 08/25/2020 16:29:13 1 text/html Throat PainReported bypatient.Location:level of pain Quality:aching Severity:moderate Duration:started 1 week(s) ago Onset/Timing:constant Alleviating Factors:cold medicine Aggravating Factors:smoking Associated Symptoms:throat tickle/itch Diet History:caffeine; sodaNotes:had a fever for a day but broke last night.gargled peroxide, no sinus drainage Carla Harrell APN, FNP-C Attn: Accounting,[address] [facility], [place], [address], [facility] 08/25/2020 16:29:13 1 text/html COPDReported bypatient.Onset/Timing:in termittent; [...] for [facility] if possible Carla Harrell APN, [employer]-C Attn: Accounting,[address] [facility], [place], [address], [facility] 10/27/2020 23:19:59 1 text/html [...] FNP-C Attn: Accounting,[address], [place], [address], [facility] 01/29/2021 17:42:32 2 text/html COPDReported bypatient.Onset/Timing:in termittent; [...] FNP-C Attn: Accounting,[address], [place], [address], [facility] 05/12/2021 14:19:55 5 text/html Annual [...] ppd. JOY PICKARD MD Attn: Accounting,[address] [place], [address], [facility], [facility] 03/19/2024 15:25:14 OBGyn Episode Ob Episode Information Episode Created Date Number of Fetuses Patient Bloodtype Patient rh Status Prepregnancy Weight lbs Domestic Partner Domestic Partner Phone Father Name Ambulatory Services Representative Status 05/06/19 16 1 CLOSED Fetus Data First Name Last Name Admitted to NICU Weight (g) Sex Living Outcome Pediatric Complications Fetus ID Race Codes Race Delivery Type 3628.73 6 M Full Term 80406 Brendan Calculation Initial Brendan Date Initial Exam [...] Domestic Partner Domestic Partner Phone Father Name Ambulatory Services Representative Status 05/06/19 16 1 CLOSED Fetus Data First Name Last Name Admitted to NICU Weight (g) Sex Living Outcome Pediatric Complications Fetus ID Race Codes Race Delivery Type , Induced 25356 Brendan Calculation Initial Brendan Date Initial Exam [...] Domestic Partner Domestic Partner Phone Father Name Ambulatory Services Representative Status 05/06/19 16 1 CLOSED Fetus Data First Name Last Name Admitted to NICU Weight (g) Sex Living Outcome Pediatric Complications Fetus ID Race Codes Race Delivery Type , Induced 51077 Brendan Calculation Initial Brendan Date Initial Exam [...] Domestic Partner Domestic Partner Phone Father Name Ambulatory Services Representative Status 05/06/19 16 1 CLOSED Fetus Data First Name Last Name Admitted to NICU Weight (g) Sex Living Outcome Pediatric Complications Fetus ID Race Codes Race Delivery Type 3175.14 4 M Full Term 15873 Brendan Calculation Initial Brendan Date Initial Exam [...] Domestic Partner Domestic Partner Phone Father Name Ambulatory Services Representative Status 05/06/19 16 1 CLOSED Fetus Data First Name Last Name Admitted to NICU Weight (g) Sex Living Outcome Pediatric Complications Fetus ID Race Codes Race Delivery Type 3175.14 4 F Full Term 95612 Brendan Calculation Initial Brendan Date Initial Exam [...] Domestic Partner Domestic Partner Phone Father Name Ambulatory Services Representative Status 05/06/19 16 1 CLOSED Fetus Data First Name Last Name Admitted to NICU Weight (g) Sex Living Outcome Pediatric Complications Fetus ID Race Codes Race Delivery Type 3628.73 6 F Full Term 44640 Brendan Calculation Initial Brendan Date Initial Exam [...] Domestic Partner Domestic Partner Phone Father Name Ambulatory Services Representative Status 05/06/19 16 1 CLOSED Fetus Data First Name Last Name Admitted to NICU Weight (g) Sex Living Outcome Pediatric Complications Fetus ID Race Codes Race Delivery Type Ectopic 98865 Brendan Calculation Initial Brnedan Date Initial Exam Date Initial Exam Provider [...] Domestic Partner Domestic Partner Phone Father Name Ambulatory Services Representative Status 05/06/19 16 1 CLOSED Fetus Data First Name Last Name Admitted to NICU Weight (g) Sex Living Outcome Pediatric Complications Fetus ID Race Codes Race Delivery Type 3175.14 4 F Full Term 33150 Brendan Calculation Initial Brendan Date Initial Exam [...] Domestic Partner Domestic Partner Phone Father Name Ambulatory Services Representative Status 05/06/19 16 1 CLOSED Fetus Data First Name Last Name Admitted to NICU Weight (g) Sex Living Outcome Pediatric Complications Fetus ID Race Codes Race Delivery Type , Spontane ous 22203 Brendan Calculation Initial Brendan Date Initial Exam [...] Domestic Partner Domestic Partner Phone Father Name Ambulatory Services Representative Status 05/06/19 16 1 CLOSED Fetus Data First Name Last Name Admitted to NICU Weight (g) Sex Living Outcome Pediatric Complications Fetus ID Race Codes Race Delivery Type , Induced 32884 Brendan Calculation Initial Brendan Date Initial Exam [...]
--- OUTSIDE RECORDS SUMMARY | 2024-06-15 20:48 | XMS_ITS ---
Author Organization [facility]ly [facility], later [facility] Address [address] [place] [address] Care Team Providers Care Dairy Lab Technician Name Role Phone Bibi Lopez Primary Care Provider [phone] REASON FOR VISIT follow-up Social History Sex Assigned At : Social History Observation Description Sex Assigned At Female Encounters Encounter Location Date Provider [facility] [address] [address] 05/08/2024 Bibi Lopez Plan Of Treatment Next Appt Details Provider Name:Bibi gordon, 07/24/2024 11:20:00 AM, [address] [place], [address], Progress Notes * Dipika TRANDOB:[birth year] (54 yo F)Acc No.[id number]:05/08/2024 UNLOCKED PROGRESS NOTE Patient: Dipika COVARRUBIAS Provider: TOMÁS Fernández :1970 A ge:54 Y S ex:Female Date:05/08/2024 Address:[facility] Subjective: * Chief Complaints: * 1 . Follow-up. * Medical History: Objective: * Vitals: Assessment: Plan: * Treatment: * * Electronic signature of Ebony Lopez on 06/15/2024 at 08:47 PM CDT Sign off status: Pending * Provider: TOMÁS Fernández Date: 0 05/08/2024 Generated for Errol choi/Papito/eTransmitting on: 0 06/15/2024 08:47 PM CDT
--- OUTSIDE RECORDS SUMMARY | 2024-06-15 20:48 | XMS_ITS | Clinical Summary ---
Author Organization [facility] [employer] Address [address] [facility] [place] [address] Care Team Providers Care Tour Guide Name Role Phone Meme Samuel RN Unavailable Unavailable Omar Delarosa MD, [facility] Primary Care Prov ider Adelina Trinidad DO Unavailable Source Comments [facility],non-owned Affiliates and Associated Physician Practices is amultiple site organization consisting of ambulatory clinics and hospital sitesin [place], [place] and [place]. This disclosure is being madepursuant to the Care Everywhere program and may not contain all information available regarding this patient. Last updated 17.[facility] [employer] Allergies Active Allergy Reactions Criticality Noted Date Comments Trazodone Anaphylaxis High 01/15/1969 Medications * Be aware that medications may not be up to date on this document. Alwaysverify current medications with the patient. aspirin EC (Ecotrin) 81 MG tablet 12/20/19 17 Active hydrOXYzine pamoate (VISTARIL) 25 MG capsule 12/20/19 17 Active metFORMIN (GLUCOPHAGE) 1000 MG tablet 12/20/19 17 Active propranolol (INDERAL) 60 MG tablet 12/21/19 17 Active simvastatin (ZOCOR) 40 MG tablet 12/20/19 17 Active vitamin E (E-400) 400 UNIT capsule Take 1 (one) capsule by mouth DAILY 03/02/19 18 Active albuterol HFA (VENTOLIN HFA) 108 (90 BASE) MCG/ACT inhaler Inhale 2 (two) puffs by mouth q4h PRN (Shortness of Breath) 11/22/19 17 Active cyclobenzaprine (FLEXERIL) 10 MG tablet Take 1 (one) tablet by mouth 3 times daily Active pregabalin (LYRICA) 50 MG capsule Take 1 (one) capsule by mouth 2 times daily Active naloxone HCl (Narcan) 4 MG/0.1ML nasal spray Cooks 1 (one) spray into the nose as needed (May repeat every 2 min in alternating nostrils until emergency medical help arrives for overdose) 2 Each 12/21/19 22 Active Additional Information Patient not taking.Reported on 11/24/2022 ketorolac (Toradol) 10 MG tablet Take 1 (one) tablet by mouth every 6 hours as needed for Pain 20 tablet 2 02/25/19 23 Active Additional Information Patient not taking.Reported on 09/06/2022 tiZANidine (Zanaflex) 4 MG tablet Take 1 (one) tablet by mouth as needed 03/11/19 23 Active topiramate (Topamax) 100 MG tablet Take 1 (one) tablet by mouth at bedtime Active losartan-hydroCHLO ROthiazide (Hyzaar) 100-25 MG tablet Take 1 (one) tablet by mouth once daily Active deutetrabenazine (Austedo) 9 MG tabletIndications: Tardive akathisia Take 1 (one) tablet by mouth once daily 30 tablet 3 06/01/19 23 Active Additional Information Patient not taking.Reported on 09/06/2022 omeprazole (PriLOSEC) 20 MG capsule 09/19/19 22 Active liraglutide (Victoza) 18 MG/3ML pen Inject 1.2 mg subcutaneously 2 times daily 1.8 mg and 1.2mg daily Active triamcinolone acetonide (Kenalog) 0.1 % ointmentIndication s:Rash,Positive KETTY (antinuclear antibody),Pain of both shoulder joints,Fatigue, unspecified type Apply to affected area 2 times daily 60 g 3 07/08/[address] (Depakote) 500 MG tabletIndications: Bipolar 1 disorder (HCC) TAKE 1 TABLET BY MOUTH IN THE MORNING AND 2 TABLETS NIGHTLY AT BEDTIME 90 tablet 3 07/23/19 23 Active DULoxetine (Cymbalta) 60 MG capsuleIndications :Bipolar 1 disorder (HCC) TAKE 1 CAPSULE BY MOUTH EVERY DAY 30 capsule 08/04/19 23 Active Additional Information Patient taking differently: 90 mg Oral DAILY, Reported on 08/25/2022 HYDROcodone-acetam inophen (Bartow) 10-325 MG tabletIndications: Chronic pain disorder Take 1 (one) tablet by mouth every 6 hours as needed for Pain 12 tablet 08/23/19 23 Active Ingrezza 40 MG capsule Take one capsule by mouth daily 30 capsule 10 11/11/19 23 Active vitamin D (D-Vi-Eladia) 10 MCG (400 UNITS)/ML solution Active hydroxychloroquine (Plaquenil) 200 MG tabletIndications: Undifferentiated connective tissue disease (HCC),High risk medication use,Osteoarthritis of multiple joints, unspecified osteoarthritis type,Fibromyalgia Take 1 (one) tablet by mouth 2 times daily 60 tablet 3 11/25/19 23 Active diclofenac sodium (Voltaren) 1 % gel Apply 4 (four) g to affected area 4 times daily 100 g 5 12/15/19 23 Active DULoxetine (Cymbalta) 20 MG capsule Take 1 (one) capsule by mouth once daily 03/10/19 24 Active meloxicam (Mobic) 7.5 MG tablet Take 1 (one) tablet by mouth once daily 03/22/19 24 Active ondansetron (Zofran) 4 MG tablet TAKE 1 TABLET BY MOUTH EVERY 4 HOURS FOR 3 DOSES. TAKE 1ST DOSE 1-2 HOURS BEFORE RADIATION 03/21/19 24 Active pregabalin (Lyrica) 100 MG capsule Take 1 (one) capsule by mouth once daily 03/10/19 24 Active topiramate (Topamax) 200 MG tablet TAKE 1 TABLET BY ORAL ROUTE AT DINNER TIME OR BEDTIME 01/28/20 23 Active HYDROcodone-acetam inophen (Bartow) 5-325 MG tablet Take 1 (one) tablet by mouth every 12 hours as needed FOR PAIN 03/22/19 24 Active losartan-hydroCHLO ROthiazide (Hyzaar) 100-12.5 MG tablet Take 1 (one) tablet by mouth once daily 03/08/19 24 Active propranolol (Inderal) 20 MG tablet Take 1 (one) tablet by mouth once daily 03/09/19 24 Active Active Problems Problem Noted Date Diagnosed [...] Diagnosed Date Resolved Date Rash 04/14/2022 12/22/2022 Family History Medical History Relation Name Comments [...] of Binge Drinking Not on file 03/24 Comments No Sex and Gender Information Value Date Recorded Sex Assigned at Female 01/11/2022 4:28 AM HHA Legal Sex Female 5:17 PM HHA Gender Identity Female 01/11/2022 4:28 AM HHA Sexual Orientation Straight 01/11/2022 4: 28 AM HHA Last Filed Vital Signs Vital Sign Reading [...] Colorectal Cancer Screening 01/04/2023 COVID-19 VACCINE ( season) 2023 DIABETES-SERUM CREATININE 11/15/20232022, 07/06/2022, 12/17/2021, Additional history exists DEPRESSION SCREENING 02/21/2024 DIABETES - URINE PROTEIN SCREENING 02/21/2024 11/14/2022, 07/06/2022 INFLUENZA VACCINE (Season Ended) 2024 COLONOSCOPY - COLON CA SCREENING 01/05/2032 01/04/2022, [...] Procedure Name Priority Date/Time Associated Diagnosis Comments PROTEIN CREATININE RATIO URINE RANDOM PNL Routine 11/14/2022 4:59 PM CDT Diffuse disease of connective tissue COMPREHENSIVE METABOLIC PANEL Routine 11/14/2022 4:59 PM CDT Diffuse disease of connective tissue HEPATITIS SCREEN ACUTE ([facility]) Routine 07/06/2022 11:34 AM CDT Positive KETTY (antinuclear antibody) Rash Polyarthralgia Fatigue, unspecified type ENDOSCOPY, COLON, DIAGNOSTIC Routine 12/31/2021 10:08 AM HHA Abdominal pain, LLQ (left lower quadrant) Constipation, unspecified constipation type HEMOGLOBIN A1C Routine 03/09/2017 6:08 PM HHA from Last 3 Months or Most Recently [...] - 26 mg/dL 11/14/2022 5:30 PM CDT [facility] Creatinine 0.83 0.57 - 1.11 mg/dL 11/14/2022 5:30 PM CDT [facility] Alkaline Phosphatase 75 40 - 150 U/L 11/14/2022 5:30 PM CDT [facility] ALT 11 0 - 55 U/L 11/14/2022 5:30 PM CDT [facility] AST 13 5 - 34 U/L 11/14/2022 5:30 PM CDT [facility] Protein Total 7.1 6.4 - 8.3 gm/dL 11/14/2022 5:30 PM CDT [facility] Albumin 3.8 3.4 - 5.0 gm/dL 11/14/2022 5:30 PM CDT [facility] Bilirubin Total 0.4 0.2 - 1.2 mg/dL 11/14/2022 5:30 PM CDT [facility] eGFR by CKD-EPI 84(L) >=90 mL/min/1.7 3 m2 11/14/2022 5:30 PM CDT [facility] Blood BLOOD SPECIMEN / Unknown Lab Venipuncture / Unknown 11/14/2022 4:59 PM CDT 11/14/2022 5:08 PM CDT us Adelina Trinidad DO LAB - CHEMISTRY ORDERABLES Final Result [facility] [address] [place] [address] * (ABNORMAL) PROTEIN CREATININE RATIO URINE RANDOM PNL (11/14/2022 4:59 PM CDT) Protein Urine 22.7(H) <11.9 mg/dL 11/14/2022 6:12 PM CDT [facility] Creatinine Urine 310.77 mg/dL 11/14/2022 6:12 PM CDT [facility] Protein/Creatin ine Ratio Urine 0.07 11/14/2022 6:12 PM CDT [facility] Urine URINE SPECIMEN OBTAINED BY CLEAN CATCH PROCEDURE / Unknown Collection / Unknown 11/14/2022 4:59 PM CDT 11/14/2022 5:53 PM CDT Adelinagail Trinidad DO LAB - URINE CHEMISTRY ORDERABLES Final Result [facility] [address] [place] [address] * HEPATITIS SCREEN ACUTE ([facility]) (07/06/2022 11:34 [...] Resulting Agency Comment Lab Testing performed at: [facility] [address] [facility] [phone] Adelina Vivi DO LAB - CHEMISTRY ORDERABLES Final Result Performing Organization Address City/[facility]/ZIP Co de Phone Number [facility] INSURANCE BILL [address] [place] [address] * ENDOSCOPY, COLON, DIAGNOSTIC (12/31/2021 10:08 AM HHA) Report Endoscopy POC _ Patient Name: Dipika Zenaidalaoscar Procedure Date: 12/31/2021 10:08 AM Date of [...] for surveillance. Procedure Code(s): --- Professional --- 99668, Colonoscopy, flexible; with removal of tumor(s), polyp(s), or other lesion(s) by snare technique --- Technical --- 88013, Colonoscopy, flexible; with removal of tumor(s), polyp(s), or other lesion(s) by snare technique Diagnosis Code(s): --- Professional --- K64.4, Residual hemorrhoidal skin tags K63.5, Polyp of colon R10.12, Left upper quadrant pain --- Technical --- K64.4, Residual hemorrhoidal skin tags K63.5, Polyp of colon R10.12, Left upper quadrant pain CPT copyright 2019 [employer]. All rights reserved. The codes documented in this report are preliminary and upon drywall finisher review may be revised to meet current compliance requirements. Dr. Alivia Kline MD Malcom Kline MD 12/31/2021 10:36:33 AM This report has been signed electronically. Number of Addenda: 0 Note Initiated On: 12/31/2021 10:08 AM Procedure Date: 12/31/2021 10:08:52 AM Scope Withdrawal Time: 0 hours 9 minutes 30 seconds [facility] 12/31/2021 10:0 8 AM HHA Malcom Kline MD GI PROCEDURE ORDERABLES Edited Result - Final Performing Organization Address City/[facility]/ZIP Co de Phone Number [facility] * HEMOGLOBIN A1C (03/09/2017 6:08 PM HHA) Hemoglobin A1c 5.9 4.4 - 6.3 % [facility] Estimated Average Glucose 123 mg/dL [facility] Comment: HbA1c Interpretation: Treatment target values recommended by ADA and other clinical organizations should be used to evaluate metabolic control in patients. Treatment Target Values: Normal : < 5.7% Pre-diabetes: 5.7-6.4% Diabetes: Equal to or greater than 6.5% Reference: [employer] Standards of Care in Diabetes -2014 In patients 70 years and older consider HbA1c target range of 7.0-7.5% Reference: Diabetes Mellitus in Older People: Position Statement on behalf of the International Association of Gerontology and Geriatrics (IAGG), the Diabetes Working Constitution Party for Older People (EDWPOP), and the International Task Force of Experts in Diabetes. Kofi Marie, et al. J [employer]. 2012 Test results diagnostic [...] BLOOD SPECIMEN / Unknown 03/09/2017 6:08 PM HHA 03/09/2017 6:26 PM HHA us Kenyon Panchal MD LAB - CHEMISTRY ORDERABLES Fin al Result [address] [phone] from Last 3 Months or Most Recently Relevant to Health Maintenance Insurance [facility] SELF PAY NO INSURANCE Member Subscriber Plan / Payer (Ef fective for All Dates) Name:Dipika Llanes Member ID:Not on file Relation to Subscriber:Not on file Name:DIPIKA LLANES Subscriber ID:Not on file (Home) Address: [facility] [place] [address] Payer ID:Not on file Group ID:Not on file Type:Self Pay Address: [place], [place] Care Teams Tour Guide Relationship Specialty [place] [address] [place] [address] PCP - General Family Medicine 02/09/22 Meme Samuel, RN Registered Nurse 02/06/17 Adelina Trinidad DO [address] [facility] [address] [place] [id number] Rheumatology 07/07/22
[2024-06-15 20:49] VITALS: BP 115/86; PULSE 80; RESP 18; TEMP 36.7; O2SAT 99
[2024-06-15 23:18] VITALS: BP 127/71; PULSE 71; RESP 16; O2SAT 96
[2024-06-15 23:23] VITALS: BP 127/71; PULSE 69; RESP 20; TEMP 36.9; O2SAT 100
[2024-06-15 23:30] VITALS: BP 106/72; PULSE 72; RESP 20; O2SAT 94
[2024-06-15 23:31] VITALS: PULSE 72; RESP 14; O2SAT 99
--- NOTE | 2024-06-15 23:39 | ED.GENADULT ---
HPI - General Adult General Chief complaint: Wound/Laceration Stated complaint: Right wrist wound drainage s/p surgery Time Seen by Provider: 06/15/24 23:22 History of Present Illness HPI narrative: This is a 54-year-old female presenting with a draining left wrist wound. Patient had a scar tissue removal surgery performed approximately [address] Hsieh after the. Since then she has continued drainage from the wound. She is concerned is draining she feels this more today. She has no systemic signs illness such as fevers chills nausea vomiting or diarrhea. Last clinic visit was on June 03 where she was noted to foamy discharge like she does today. Related Data Home Medications ?Medication ?Instructions ?Recorded ?Confirmed ?Last Taken ?Type multivitamin 1 tablet PO DAILY 08/22/23 05/29/24 Unknown History albuterol sulfate 90 mcg/actuation 1 puff inhalation QID PRN 04/22/24 05/29/24 Unknown History aerosol inhaler shortness of breath or wheezing cholecalciferol (vitamin D3) 25 25 mcg PO DAILY 04/22/24 05/29/24 Unknown History mcg (1,000 unit) capsule (Vitamin D3) cyclobenzaprine 10 mg tablet 10 mg PO TID PRN muscle spasm 04/22/24 05/29/24 Unknown History divalproex 500 mg tablet,delayed 500 mg PO DIRECTED 04/22/24 05/29/24 Unknown History release duloxetine 60 mg capsule,delayed 60 mg PO DAILY 04/22/24 05/29/24 Unknown History release liraglutide 0.6 mg/0.1 mL (18 mg/3 0.6 mg subcut DIRECTED 04/22/24 05/29/24 Unknown History mL) subcutaneous pen injector meloxicam 7.5 mg tablet 7.5 mg PO BID PRN pain (scale 04/22/24 05/29/24 Unknown History score 4-6) Allergies Allergy/AdvReac Type Severity Reaction Status Date / Time No Known Allergies Allergy Verified 06/15/24 20:46 [facility] Past Medical History Medical History Smoking Thrush Preoperative clearance Tardive dyskinesia CTS (carpal tunnel syndrome) PTSD (post-traumatic stress disorder) Bipolar disorder Fibromyalgia Anxiety Peripheral neuropathic pain Psychiatric diagnosis Surgical History Surgical History H/O hand surgery S/P total hip arthroplasty Family History Family History Unknown Hypertension Depression Heart disease Diabetes mellitus Cerebrovascular accident Neuropathy Arthritis Other Peripheral neuropathic pain Social History Social History Smoking packs per day: 0.25 Smoking cigarettes per day: 5.0 Years smoked: 20 Smoking pack-years: 5.00 Smoking status: Current every day smoker Tobacco type: cigarettes Second hand tobacco smoke exposure: Yes Smoking end date: 08/04/23 Alcohol intake: former Substance use: current Substance use type: other Other substance usage details: Pt reports CBD use Last use: 09/04/23 Do You Feel Safe in your Home?: Yes Lack of Transportation: No Lack of Food: Never True Current Housing: Decline to Answer Concerned About Future Housing: Decline to Answer Difficulty Paying Gas/Electric Bills: Decline to Answer Difficulty Paying for Meds: Decline to Answer Currently Unemployed: Decline to Answer Education: Decline to Answer Difficulty w/ Childcare or Family Care: Decline to Answer Living arrangements: with family Additional living arrangements comments: DAUGHTER Occupation/Education: unemployed Gender identity (if verbalized by the patient): Female Spiritual care concerns: No Exam Narrative: APPEARANCE: No apparent distress. Head: atraumatic. EYES: EOMI, NOSE: Atraumatic NECK: Trachea midline RESPIRATORY: No increased rate of breathing CARDIOVASCULAR: RRR, ABDOMINAL: Non-distended MUSCULOSKELETAl: No obvious deformities NEURO: Alert. Moving 4/4 extremities SKIN:: Healing wound over the right wrist with granulation tissue. No surrounding erythema or cellulitic changes. Foamy serous discharge expressible with pressure on the wound. PSYCHIATRIC: Normal affect Course Vital Signs Vital signs: Vital Signs Temperature 98.1 F 06/15/24 20:49 Pulse Rate 80 06/15/24 20:49 Respiratory Rate 18 06/15/24 20:49 Blood Pressure 115/86 06/15/24 20:49 Pulse Oximetry 99 06/15/24 20:49 Oxygen Delivery Room Air 06/15/24 20:49 Temperature 98.5 F 06/15/24 23:23 Pulse Rate 71 06/16/24 04:15 Respiratory Rate 19 06/16/24 01:00 Blood Pressure 108/75 06/16/24 04:31 Pulse Oximetry 96 06/16/24 01:00 Oxygen Delivery Room Air 06/15/24 20:49 Medical Decision Making MDM Narrative Medical decision making narrative: -Course: 54-year-old female presenting with serous drainage from her right wrist wound. No fevers or vital sign abnormalities. White count is not elevated. She does have some mild elevations in her ESR and CRP. Page was put out to Dr. Alvarez although he is not on-call and it is the middle of the night. Patient started on antibiotics given pain medication while awaiting surgical consultation. Wound was cultured. I discussed the case with Dr. Steiner in the morning. The patient's wound appears to be unchanged. She is not febrile or have an elevated white blood cell count. Patient will be switched to clindamycin from Bactrim. He does not feel she needs to be admitted the hospital for further management. He will see her in clinic early next week. Patient will be discharged with return precautions. -DDX includes but is not limited to: Nonhealing wound, wound infection Vital Signs Vital Signs: Vital Signs Temperature 98.1 F 06/15/24 20:49 Pulse Rate 80 06/15/24 20:49 Respiratory Rate 18 06/15/24 20:49 Blood Pressure 115/86 06/15/24 20:49 Pulse Oximetry 99 06/15/24 20:49 Oxygen Delivery Room Air 06/15/24 20:49 Temperature 98.5 F 06/15/24 23:23 Pulse Rate 71 06/16/24 04:15 Respiratory Rate 19 06/16/24 01:00 Blood Pressure 108/75 06/16/24 04:31 Pulse Oximetry 96 06/16/24 01:00 Oxygen Delivery Room Air 06/15/24 20:49 Lab Data 06/16/24 00:09 06/16/24 00:09 Labs: Lab Results 06/16/24 Range/Units 00:09 WBC 6.2 (4.5-10.0) K/mm3 RBC 4.48 (4.2-5.4) M/mm3 Hgb 12.6 (12.0-15.0) g/dL Hct 40.3 (37.0-47.0) % MCV 90.0 (80-100) fl MCH 28.1 (26-34) pg MCHC 31.3 L (32-36) g/dl RDW 12.9 (11.5-14.5) % Plt Count 224 (150-375) k/mm3 MPV 11.5 H (7.4-10.4) fl Immature Gran % (Auto) 0.6 H (0-0.5) % Neut % (Auto) 31.0 L (45.5-73.1) % Lymph % (Auto) 56.0 H (18.3-44.2) % Gallia % (Auto) 9.5 H (2.6-8.5) % Eos % (Auto) 2.3 (0-4.4) % Baso % (Auto) 0.6 (0.2-1.2) % Lymph # (Auto) 3.48 H (0.9-3.2) K/mm3 [place] # (Auto) 0.6 (0.1-0.6) K/mm3 Eos # (Auto) 0.1 (0-0.3) K/mm3 Baso # (Auto) 0.0 (0.0-0.1) K/mm3 Abs Immat Gran (auto) 0.04 H (0.00-0.031) K/mm3 Absolute Neuts (auto) 1.9 (1.3-6.7) K/mm3 Absolute Nucleated RBC 0.000 (0.0-0.012) K/mm3 Nucleated RBC % 0.0 (0.0-0.2) % ESR 42 H (0-20) mm/hr Sodium 139 (137-145) mmol/L Potassium 3.6 (3.4-5.0) mmol/L Chloride 103 (98-107) mmol/L Carbon Dioxide 29 (22-30) mmol/L Anion Gap 7 (4-12) mmol/L BUN 14 (7-17) mg/dL Creatinine 0.80 (0.7-1.0) mg/dL Estim Creat Clear Calc 77 ml/min Estimated GFR > 60 (59 - ) Glucose 137 H (65-110) mg/dL Calcium 8.9 (8.4-10.2) mg/dL Total Bilirubin 0.7 (0.2-1.3) mg/dL AST 42 H (14-36) U/L ALT 19 (6-35) U/L Alkaline Phosphatase 120 (38-126) U/L C-Reactive Protein 7.4 H (<1.0) mg/dL Total Protein 7.0 (6.3-8.2) g/dL Albumin 4.1 (3.5-5.1) g/dL Discharge Plan Discharge Clinical Impression: Nonhealing surgical wound Patient Disposition: Home Condition: Stable Instructions: Antibiotic Form, Chronic Wounds (ED) Additional Instructions: You were seen emergency department for a draining wound. I discussed this with Dr. Steiner. He would like you to continue your antibiotic and add clindamycin. Please call his clinic today and schedule appointment for next week. If you develop fevers or your condition is worsening please return to the ED for re-evaluation. Patient Language: Yakut Prescriptions: New clindamycin HCl [Cleocin HCl] 300 mg capsule 300 mg PO Q6H 7 Days Qty: 28 0RF No Action omeprazole 40 mg capsule,delayed release(DR/EC) 40 mg PO DAILY Qty: 90 2RF Ingrezza 40 mg capsule 40 mg PO DAILY Qty: 90 2RF sulfamethoxazole-trimethoprim 800-160 mg tablet 1 tablet PO Q12H Qty: 10 0RF multivitamin Tablet 1 tablet PO DAILY rosuvastatin 10 mg tablet 10 mg PO DAILY Qty: 90 2RF propranolol 20 mg tablet 20 mg PO DAILY Qty: 90 2RF Rx Instructions: IN AM metformin 1,000 mg tablet 1,000 mg PO QAM Qty: 90 3RF hydroxyzine pamoate 25 mg capsule 50 mg PO QPM Qty: 180 3RF Rx Instructions: anxiety losartan-hydrochlorothiazide 100-12.5 mg tablet 1 tablet PO QAM Qty: 90 3RF fluticasone propionate [Flonase Allergy Relief] 50 mcg/actuation spray,suspension 1 spray intranasal BID Qty: 48 0RF Rx Instructions: administer into each nostril pregabalin 100 mg capsule 100 mg PO TID Qty: 90 2RF triamcinolone acetonide 0.1 % ointment See Rx Instructions .ROUTE .COMPLEX Qty: 80 0RF Dose Instruction: APPLY TOPICALLY TWICE A DAY Rx Instructions: APPLY TOPICALLY TWICE A DAY oxycodone-acetaminophen [Percocet] 5-325 mg tablet 1 tablet PO Q6H PRN (Reason: pain) Qty: 40 0RF cholecalciferol (vitamin D3) [Vitamin D3] 25 mcg (1,000 unit) capsule 25 mcg PO DAILY cyclobenzaprine 10 mg tablet 10 mg PO TID PRN (Reason: muscle spasm) Rx Instructions: TAKE 1 TABLET BY MOUTH THREE TIMES A DAY NEEDED FOR MUSCLE SPASM divalproex 500 mg tablet,delayed release (DR/EC) 500 mg PO DIRECTED Rx Instructions: TAKE 1 TABLET BY MOUTH IN THE MORNING AND 2 TABLETS AT BEDTIME meloxicam 7.5 mg tablet 7.5 mg PO BID PRN (Reason: pain (scale score 4-6)) Rx Instructions: TAKE 1 TABLET BY MOUTH TWICE A DAY NEEDED FOR PAIN (SCORE 4-6) albuterol sulfate 90 mcg/actuation HFA aerosol inhaler 1 puff inhalation QID PRN (Reason: shortness of breath or wheezing) Rx Instructions: INHALE 1 PUFF BY MOUTH 4 TIMES A DAY NEEDED FOR WHEEZE FOR SHORTNESS OF BREATH duloxetine 60 mg capsule,delayed release(DR/EC) 60 mg PO DAILY Rx Instructions: TAKE 1 CAPSULE BY MOUTH EVERY DAY liraglutide 0.6 mg/0.1 mL (18 mg/3 mL) pen injector 0.6 mg subcut DIRECTED Rx Instructions: INJECT 0.6MG SUBCUTANEOUSLY ONCE DAILY X 7 DAYS THEN 1.2MG DAILY, NOT TO EXCEED 1.8MG/DAY Follow-up/Referrals: Raymond Parmar MD [Primary Care Provider] - Kashif Steiner MD [Physician] - 3 Days (Wound)
[2024-06-15 23:45] VITALS: PULSE 71; RESP 14; O2SAT 96
--- OUTSIDE RECORDS SUMMARY | 2024-06-15 23:54 | XMS_ITS | Referral Summary ---
Author Organization [facility] Address [address] [place] [address] Care Team Providers Care Nursery Technician Name Role Phone Unknown, Notinfile Primary Care [...] (10/20/2020): Added automatically from request for surgery [id number] Back pain with left-sided sciatica 10/19/2020 Diverticulosis 09/13/2020 Overview (09/13/2020): Added automatically from request for surgery [id number] Family history of colon cancer in mother 021 Overview (09/13/2020): Added automatically from request for surgery [id number] Hx of colonic polyps 09/13/2020 Overview (09/13/2020): Added automatically from request for surgery [id number] Diverticulosis of colon 09/11/2020 Assessment & Plan (09/11/2020 1:48 PM CDT): Colonoscopy and then recap in office Carpal tunnel syndrome of left wrist 06/30/2020 Tardive dyskinesia 04/28/2020 Complex dental caries 11/28/2019 Overview (11/28/2019): Added automatically from request for surgery [id number] Essential hypertension, malignant 11/28/2019 Overview (11/28/2019): Added automatically from request for surgery [id number] Breath, shortness 11/28/2019 Overview (11/28/2019): Added automatically from request for surgery [id number] Severe diabetes mellitus 11/28/2019 Overview (11/28/2019): Added automatically from request for surgery [id number] Posttraumatic stress disorder 11/28/2019 Overview (11/28/2019): Added automatically from request for surgery [id number] Anxiety 11/28/2019 Overview (11/28/2019): Added automatically from request for surgery [id number] Infection following a procedure, subsequent enco unter [...] on file 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 Testing performed by: [address] [address] Creatinine Ur 182.5 mg/dL [facility] ([place]) Comment: Interpretive Data No reference range established. Current interpretive data was last revised 2018. Testing performed by: [address], [address] Albumin Creatinine Ratio, Ur 17 1 - 29 mg/g [facility] ([place]) Comment:Testing performed by : [facility], [address] [facility], [address] Urine 11/17/2020 11:0 0 AM CDT 11/17/2020 2:34 PM CDT Carla Harrell SENIOR MARKETING ASSOCIATE LAB URINE ORDERABLES Final R esult Performing Organization Address [facility] de Phone Number [facility] ([place]) 1 [facility] [place] [address] * (ABNORMAL) Hemoglobin A1c (11/17/2020 10:48 AM [...] and children were not included. (Diabetes Care 31:7514-7640, 2008). The eAG is not equivalent to a fasting glucose. Blood 11/17/2020 10:4 8 AM CDT 11/17/2020 11:20 AM CDT Carla Harrell NP LAB BLOOD ORDERABLES Final R esult Performing Organization Address [facility] Co de Phone Number [facility] ([place]) 1 [facility] [place] [address] * (ABNORMAL) Lipid panel (11/17/2020 10:48 AM CDT) Cholesterol 174 30 - 199 mg/dL [facility] ([place]) Comment: Interpretive Data Ages < or [...] 2017. Non-HDL Cholesterol 139 mg/dL [facility] ([place]) Comment: Interpretive Data Ages < or = [...] on 2017. Chol/HDL ratio 5 [facility]ARTINE[facility] ([place]) Blood 11/17/2020 10:4 8 AM CDT 11/17/2020 11:20 AM CDT Carla Harrell SENIOR MARKETING ASSOCIATE LAB BLOOD ORDERABLES Final R esult [facility] ([place]) 1 [facility] Department [place] [address] * COLONOSCOPY (10/22/2020 10:34 AM CDT) Anatomical Region Laterality Modality Other Narrative Procedure Note Yunior Barber MD - 10/22/2020 10:34 AM CDT [facility] Patient Name: Dipika Tran Procedure Date: 10/22/2020 10:34 AM Date of : 1970 Admit Type: Outpatient Age: 50 Gender: Female Attending MD: Yunior Barber M.D. Room: [facility] ENDOSCOPY ROOM 2 Note Status: Finalized [...] scope was passed under direct vision. TheColonoscope [id number] was introduced through the anus and advanced [...] 10:34 AM Procedure Code(s): --- Professional --- 44887, Colonoscopy, flexible; diagnostic, including collection of specimen(s) by brushing or washing, when performed (separateprocedure) Diagnosis Code(s): --- Professional --- K57.30, Diverticulosis of large intestine without perforation orabscess without bleeding K64.9, Unspecified hemorrhoids CPT copyright 2019 [employer]. All rights reserved. The codes documented in this report are preliminary and upon infrastructure director reviewmay be revised to meet current compliance requirements. Recognized by the [place] [employer] for promoting quality in endoscopy Yunior Barber MD ENDOSCOPY PROCEDURES Final Re sult from Last 3 Months or Most Recently Relevant to Health Maintenance Insurance [facility] Advance Directives For more information, please contact: [phone] * Full Code (Latest Code Status on File) Date Activated Date Inactivated Comments 11/20/2020 10:55 AM 11/20/2020 4:37 PM * Full Code Date Activated Date Inactivated Comments 10/22/2020 10:43 AM 10/22/2020 4:47 PM * Full Code Date Activated Date Inactivated Comments 10/22/2020 10:43 AM 10/22/2020 10:43 AM * Full Code Date Activated Date Inactivated Comments 10/20/2020 10:09 AM 10/20/2020 2:59 PM Care Teams Nursery Technician Relationship Specialty Start Date End Date Unknown, Notinfile PCP - General 04/03/23
--- OUTSIDE RECORDS SUMMARY | 2024-06-15 23:54 | XMS_ITS | Continuity of Care Document ---
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, [place], [place], [address] , [place]. tel:[phone] Referring Provider: Asia Guti[address], [place], [place], [address]. tel:[phone] OFFICE/OUTPA TIENT VISIT, [facility], [address], [place], [place], [address], [place] tel:[phone] [facility] asthma1 (chief complaint) alcohol (chief complaint) back apin (chief complaint) arm numnbess1 (chief complaint) AsthmaAlcohol dependence, uncomplicatedChroni c pain syndromeNeuropathy [address], [address], [place], [place], [address] , [place]. tel:[phone] Referring Provider: Asia Guti[address], [place], [place], [address]. tel:[phone] OFFICE/OUTPA TIENT VISIT, [facility], [address], [place], [address], [place] tel:[phone] [facility] HTN (chief complaint) back pain1 (chief complaint) asthma (chief complaint) HLP (chief complaint) AsthmaLumbagoEssent ial (primary) hypertensionHyperli pidemia [address], [address], [place], [place], [address] , [place]. tel:[phone] Referring Provider: Asia Guti[address], [place], [address]. tel:[phone] OFFICE/OUTPA TIENT VISIT, [facility], [address], [place], [address], [place] tel:[phone] [facility] headache1 (chief complaint) eye (chief complaint) back pain1 (chief complaint) HeadacheLumbagoEsse ntial (primary) hypertensionConjunc tivitis [address], [address], [place], [place], [address] , [place]. tel:[phone] Referring Provider: Asia Gutiérrez [address], [place], [place], [address]. tel:[phone] OFFICE/OUTPA TIENT VISIT, [facility], [address], [place], [place], [address], [place] tel:[phone] [facility] HTN (chief complaint) back pain (chief complaint) lumbago1 (chief complaint) DM (chief complaint) HyperlipidemiaEssen tial (primary) hypertensionHeadach eLumbago [address], [address], [place], [address] , [place]. tel:[phone] Referring Provider: Asia Gutiérrez [address], [place], [address]. tel:[phone] OFFICE/OUTPA TIENT VISIT, [facility], [address], [place], [address], [place] tel:[phone] [facility] HTN (chief complaint) back pain1 (chief complaint) anxiety1 (chief complaint) Essential (primary) hypertensionChronic pain syndromeDepressionO besity [address], [address], [place], [place], [address] , [place]. [phone] Referring Provider: Asia Guti[address], [place], [place], [address]. tel:[phone] OFFICE/OUTPA TIENT VISIT, [facility], [address], [place], [place], [address], [place] tel:[phone] [facility] chronic pain (chief complaint) HTN (chief complaint) HLP (chief complaint) anxiety1 (chief complaint) Chronic pain syndromeHyperlipide miaEssential (primary) hypertensionDepress ion [address], [address], [place], [place], [address] , [place]. [phone] Referring Provider: Asia Gutiérrez [facility] A, [place], [place], [address]. tel:[phone] OFFICE/OUTPA TIENT VISIT, [facility], [address], [place], [address], [place] tel:[phone] [facility] COPD1 (chief complaint) cough1 (chief complaint) preDM (chief complaint) HLP (chief complaint) bipolar (chief complaint) Metabolic syndromeHyperlipide miaAcute bronchitisChronic pain syndrome [address], [facility] A, [place], [place], [address] , [place]. [phone] Referring Provider: Asia Gutiérrez [facility] A, [place], [place], [address]. tel:[phone] PREV VISIT, NEW, AGE 40-64 [facility], [address] [place], [address], [place] tel:[phone] [facility] PHysical (chief complaint) Encounter for general adult medical exam w abnormal findingsType 2 diabetes mellitus without complicationsEssent ial (primary) hypertensionHyperli pidemia [address], [facility] A, [place], [place], [address] , [place]. [phone] Referring Provider: Asia Gutiérrez [facility] A, [place], [place], [address]. tel:[phone] Family History Family Member Type Diagnosis Age At Onset Brother Problem (finding) Alive and well Father Problem (finding) Leukemia Mother Problem (finding) colon [place] 47 Payers Payer name Insurance type Covered democrat ID Authorelizabeth tion(s) No Information Social History [...] Mental Status Date Cognitive Assessment Orientation - Rancocas ed to time, place, person, situation.
--- OUTSIDE RECORDS SUMMARY | 2024-06-15 23:54 | XMS_ITS | Patient Health Record ---
[facility] Organization [facility] Address [address] [place] [address] Care Team Providers Care Digester Operator Helper Name Role Phone Bibi Lopez Primary Care Provider Allergies Allergen (clinical drug ingredient) Drug/Non Drug [...] day Not-Taking Vitamin D (Ergocalciferol) 1.25 MG (44438 UT) 1 capsule Orally weekly Active Topiramate [...] Risk Notes Problem Schizoaffective disorder, bipolar type (07135695) Schizoaffective disorder, bipolar type (F25.0) Active confirmed Problem Insomnia disorder related to another mental disorder (06034688) Insomnia due to other mental disorder (F51.05) Active confirmed Problem Anxiety disorder (619298472) Anxiety disorder (F41.9) Active confirmed Problem Mild recurrent major depression (56759746) Depression, major, recurrent, mild (F33.0) Active confirmed Problem Posttraumatic stress disorder (30063884) Post traumatic stress disorder (PTSD) (F43.10) Active confirmed Problem Smoker (64621716) Smoker (F17.200) Active confi rmed Vital Signs Heart Rate 83 /min 05/22/2024 Respiratory Rate 16 /min 05/22/2024 Blood pressure diastolic 82 mm Hg 05/22/2024 Oximetry 97 % 05/22/2024 Height 65 in 05/22/2024 Blood pressure systolic 128 mm Hg 05/22/2024 Weight 207 lbs 05/22/2024 BMI 34.44 kg/m2 05/22/2024 Encounters Encounter Location Date Provider Diagnosis [address] [address] 05/22/2024 Bibi Lopez Schizoaffective disorder, bipolar type F25.0 ; Anxiety disorder F41.9 ; Post traumatic stress disorder (PTSD) F43.10 ; Depression, major, recurrent, mild F33.0 ; Insomnia due to other mental disorder F51.05 and Smoker F17.[address] [place] [address] 05/06/2024 Bibi Lopez [address] [place] [address] 05/06/2024 Bibi Lopez [address] [place] [address] 05/08/2024 Bibi Noeth Assessments Encounter Date Diagnosis [...] 05/22/2024 Smoker (ICD-10 - F17.200) Can call [phone] , you can speak confidentially with a highly trained quit lacrosse coach. ( ) Not interested in quitting at this time despite benefits Plan Of Treatment Next Appt Details Provider Name:Bibi Barreto , 07/24/2024 11:20:00 AM, [address], [address], Insurance Providers Payer Name Payer Address Payer Phone Subscriber Number Group Number Insured Name Patient Relationship to Insured Coverage Start Date Coverage End Date [address] [phone] [id number] Dipika Tran Self - patient is the insured Medical (General) History Surgical History Surgery Date(Month/Year) left hip replacement Right hand repair
--- OUTSIDE RECORDS SUMMARY | 2024-06-15 23:54 | XMS_ITS | Clinical Summary ---
Author Organization [facility] Address [address] [place] [address] Care Team Providers Care Meteorology Instructor Name Role Phone Meme Samuel RN Unavailable Unavailable Omar Delarosa MD, [facility] Primary Care Prov ider Adelina Trinidad DO Unavailable Source Comments [facility],non-owned Affiliates and Associated Physician Practices is amultiple site organization consisting of ambulatory clinics and hospital sitesin [place], [place], [place] and [place]. This disclosure is being madepursuant to the Care Everywhere program and may not contain all information available regarding this patient. Last updated 17.[facility] Allergies Active Allergy Reactions Criticality Noted Date [...] naloxone HCl (Narcan) 4 MG/0.1ML nasal spray [place] 1 (one) spray into the nose as [...] Oral DAILY, Reported on 08/25/2022 HYDROcodone-acetam inophen ([place]) 10-325 MG tabletIndications: Chronic pain disorder Take [...] OR BEDTIME 01/28/20 23 Active HYDROcodone-acetam inophen ([place]) 5-325 MG tablet Take 1 (one) tablet [...] Sex Assigned at Female 01/11/2022 4:28 AM SQL DATA ANALYST Legal Sex Female 5:17 PM SQL DATA ANALYST Gender Identity Female 01/11/2022 4:28 AM SQL DATA ANALYST Sexual Orientation Straight 01/11/2022 4: 28 AM SQL DATA ANALYST Last Filed Vital Signs Vital Sign Reading [...] ENDOSCOPY, COLON, DIAGNOSTIC Routine 12/31/2021 10:08 AM SQL DATA ANALYST Abdominal pain, LLQ (left lower quadrant) Constipation, unspecified constipation type HEMOGLOBIN A1C Routine 03/09/2017 6:08 PM SQL DATA ANALYST from Last 3 Months or Most Recently [...] - 34 U/L 11/14/2022 5:30 PM CDT -[facility] Protein Total 7.1 6.4 - 8.3 gm/dL 11/14/2022 5:30 PM CDT -[facility] Albumin 3.8 3.4 - 5.0 gm/dL 11/14/2022 5:30 PM CDT -[facility] Bilirubin Total 0.4 0.2 - 1.2 mg/dL 11/14/2022 5:30 PM CDT -[facility] eGFR by CKD-EPI 84(L) >=90 mL/min/1.7 3 m2 11/14/2022 5:30 PM CDT -[facility] Blood BLOOD SPECIMEN / Unknown Lab Venipuncture / Unknown 11/14/2022 4:59 PM CDT 11/14/2022 5:08 PM CDT us Adelina Trinidad DO LAB - CHEMISTRY ORDERABLES Final Result [facility] [address] [place] [address] * (ABNORMAL) PROTEIN CREATININE RATIO URINE RANDOM PNL (11/14/2022 4:59 PM CDT) Protein Urine 22.7(H) <11.9 mg/dL 11/14/2022 6:12 PM CDT [facility] Creatinine Urine 310.77 mg/dL 11/14/2022 6:12 PM CDT [facility] Protein/Creatin ine Ratio Urine 0.07 11/14/2022 6:12 PM CDT -[facility] Urine URINE SPECIMEN OBTAINED BY CLEAN CATCH PROCEDURE / Unknown Collection / Unknown 11/14/2022 4:59 PM CDT 11/14/2022 5:53 PM CDT Adelinagail Trinidad DO LAB - URINE CHEMISTRY ORDERABLES Final Result [facility] [address] [place] [address] * HEPATITIS SCREEN ACUTE ([facility]) (07/06/2022 11:34 [...] Resulting Agency Comment Lab Testing performed at: [facility] [address] [id number] Adelina Vivi DO LAB - CHEMISTRY ORDERABLES Final Result Performing Organization Address City[facility]/ZIP Co de Phone Number [facility] INSURANCE BILL [address] [place] [address] * ENDOSCOPY, COLON, DIAGNOSTIC (12/31/2021 10:08 AM SQL DATA ANALYST) Report Endoscopy POC _ Patient Name: Dipika [...] for surveillance. Procedure Code(s): --- Professional --- 18408, Colonoscopy, flexible; with removal of tumor(s), polyp(s), or other lesion(s) by snare technique --- Technical --- 34548, Colonoscopy, flexible; with removal of tumor(s), polyp(s), or other lesion(s) by snare technique Diagnosis Code(s): --- Professional --- K64.4, Residual hemorrhoidal skin tags K63.5, Polyp of colon R10.12, Left upper quadrant pain --- Technical --- K64.4, Residual hemorrhoidal skin tags K63.5, Polyp of colon R10.12, Left upper quadrant pain CPT copyright 2019 [place] [employer]. All rights reserved. The codes documented in this report are preliminary and upon investigation officer review may be revised to meet current compliance requirements. Dr. Alivia Kline MD Malcom Kline MD 12/31/2021 10:36:33 AM This report has been signed electronically. Number of Addenda: 0 Note Initiated On: 12/31/2021 10:08 AM Procedure Date: 12/31/2021 10:08:52 AM Scope Withdrawal Time: 0 hours 9 minutes 30 seconds [facility] ENDOSCOPY 12/31/2021 10:0 8 AM SQL DATA ANALYST Malcom Kline MD GI PROCEDURE ORDERABLES Edited Result - Final Performing Organization Address City[facility]/ZIP Co de Phone Number [facility] ENDOSCOPY * HEMOGLOBIN A1C (03/09/2017 6:08 PM SQL DATA ANALYST) Hemoglobin A1c 5.9 4.4 - 6.3 % [facility] Estimated Average Glucose 123 mg/dL [facility] Comment: HbA1c Interpretation: Treatment target values recommended by ADA and other clinical organizations should be used to evaluate metabolic control in patients. Treatment Target Values: Normal : < 5.7% Pre-diabetes: 5.7-6.4% Diabetes: Equal to or greater than 6.5% Reference: [place] [employer] Standards of Care in Diabetes -2014 In patients 70 years and older consider HbA1c target range of 7.0-7.5% Reference: Diabetes Mellitus in Older People: Position Statement on behalf of the International Association of Gerontology and Geriatrics (IAGG), the Diabetes Working Green Party for Older People (EDWPOP), and the International Task Force of Experts in Diabetes. Kofi Marie, et al. J [place] [employer] Association. 2012 Test results diagnostic [...] BLOOD SPECIMEN / Unknown 03/09/2017 6:08 PM SQL DATA ANALYST 03/09/2017 6:26 PM SQL DATA ANALYST us Kenyon Panchal MD LAB - CHEMISTRY ORDERABLES Fin al Result [address] [phone] from Last 3 Months or Most Recently Relevant to Health Maintenance Insurance [facility] SELF PAY NO INSURANCE Member Subscriber Plan / Payer (Ef fective for All Dates) Name:Dipika Llanes Member ID:Not on file Relation to Subscriber:Not on file Name:DIPIKA LLANES Subscriber ID:Not on file (Home) Address: [facility] [place] [address] Payer ID:Not on file Group ID:Not on file Type:Self Pay Address: [place], [place] Care Teams Meteorology Instructor Relationship Specialty [place] [address] [place] [address] PCP - General Family Medicine 02/09/22 Meme Samuel, RN Registered Nurse 02/06/17 Adelina Trinidad DO [address] [facility] [address] [place] [id number] Rheumatology 07/07/22
--- OUTSIDE RECORDS SUMMARY | 2024-06-15 23:54 | XMS_ITS | Encounter Summary ---
Author Organization [facility] Address [address] [place] [address] Care Team Providers Care Certified Medical Coder Name Role Phone Meme Samuel RN Unavailable Unavailable Omar Delarosa MD, [facility] Primary Care Prov ider Adelina Trinidad DO Unavailable Encounter Details Date Type Department Care Team (Late st Contact Info) Description 03/07/2022 [facility] Outpatient Visit [facility] Orthopedics - Radiology [address] [place] [address] [place] [address] Document, Scanned Social History Tobacco Use Types Packs/Day Years Used Date Smoking Tobacco: Every Day Cigarettes Smokeless Tobacco: Never Comments:STOP 3 DAYS BEFORE SURGERY Alcohol Use Standard Drinks/Week Comments No 0 (1 standard drink = 0.6 oz pur e alcohol) Comments No Sex and Gender Information Value Date Recorded Sex Assigned at Female 01/11/2022 4:28 AM CONSUMER INSIGHT ANALYST Legal Sex Female 5:17 PM CONSUMER INSIGHT ANALYST Gender Identity Female 01/11/2022 4:28 AM CONSUMER INSIGHT ANALYST Sexual Orientation Straight 01/11/2022 4: 28 AM CONSUMER INSIGHT ANALYST COVID-19 Exposure Response Date Recorded In the last 10 days, have yo u been in contact with someone who was confirmed or suspected to have Coronavirus/COVID-19? No / Unsure 03/03/2022 1:05 PM CONSUMER INSIGHT ANALYST documented as of this encounter Functional Status * Is person deaf or have serious hearing difficulty? Answer Date of Assessment Author No 12/31/2021 10:55 AM CONSUMER INSIGHT ANALYST Deneen Irene RN * Is person blind [...] on filedocumented in this encounter Care Teams Certified Medical Coder Relationship Specialty [place] [address] [place] [address] PCP - General Family Medicine 02/09/22 Meme Samuel RN Registered Nurse 02/06/17 Adelina Trinidad DO [address] [id number] Rheumatology 07/07/22 documented as of this encounter
--- OUTSIDE RECORDS SUMMARY | 2024-06-15 23:54 | XMS_ITS | Clinical Summary ---
Author Organization [facility] Address [address] [place] [address] Care Team Providers Care Freelance Programmer/App Developer Name Role Phone Unknown, Notinfile Primary Care [...] (10/20/2020): Added automatically from request for surgery [id number] Back pain with left-sided sciatica 10/19/2020 Diverticulosis 09/13/2020 Overview (09/13/2020): Added automatically from request for surgery [id number] Family history of colon cancer in mother 021 Overview (09/13/2020): Added automatically from request for surgery [id number] Hx of colonic polyps 09/13/2020 Overview (09/13/2020): Added automatically from request for surgery [id number] Diverticulosis of colon 09/11/2020 Assessment & Plan (09/11/2020 1:48 PM CDT): Colonoscopy and then recap in office Carpal tunnel syndrome of left wrist 06/30/2020 Tardive dyskinesia 04/28/2020 Complex dental caries 11/28/2019 Overview (11/28/2019): Added automatically from request for surgery [id number] Essential hypertension, malignant 11/28/2019 Overview (11/28/2019): Added automatically from request for surgery [id number] Breath, shortness 11/28/2019 Overview (11/28/2019): Added automatically from request for surgery [id number] Severe diabetes mellitus 11/28/2019 Overview (11/28/2019): Added automatically from request for surgery [id number] Posttraumatic stress disorder 11/28/2019 Overview (11/28/2019): Added automatically from request for surgery [id number] Anxiety 11/28/2019 Overview (11/28/2019): Added automatically from request for surgery [id number] Infection following a procedure, subsequent enco unter [...] on file Legal Sex Female 1:20 AM 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 Current interpretive data was last revised 2018. Testing performed by: [facility], [address] [place] [address]., [address] Creatinine Ur 182.5 mg/dL [facility] ([place]) Comment: Interpretive Data No reference range established. Current interpretive data was last revised 2018. Testing performed by: [facility], [address] [place] [address]., [address] Albumin Creatinine Ratio, Ur 17 1 - 29 mg/g [facility] ([place]) Comment:Testing performed by : [facility], [address] [place] [address]., [address] Urine 11/17/2020 11:0 0 AM CDT 11/17/2020 2:34 PM CDT Carla Harrell NP LAB URINE ORDERABLES Final R esult [facility] [address] [facility] Department [place] [address] * (ABNORMAL) Hemoglobin A1c (11/17/2020 10:48 AM [...] and children were not included. (Diabetes Care 31:0176-4807, 2008). The eAG is not equivalent to a fasting glucose. Blood 11/17/2020 10:4 8 AM CDT 11/17/2020 11:20 AM CDT Carla Kellie Harrell ADMISSION DISCHARGE RN LAB BLOOD ORDERABLES Final R esult [facility] ([place]) [address] [facility] Department [place] [address] * (ABNORMAL) Lipid panel (11/17/2020 10:48 AM [...] CDT 11/17/2020 11:20 AM CDT Carla Harrell ADMISSION DISCHARGE RN LAB BLOOD ORDERABLES Final R esult [facility] ([place]) [address] [facility] Department [place] [address] * COLONOSCOPY (10/22/2020 10:34 AM CDT) Anatomical Region Laterality Modality Other Narrative Procedure Note Yunior Barber MD - 10/22/2020 10:34 AM CDT [facility] Patient Name: Dipika Tran Procedure [...] scope was passed under direct vision. TheColonoscope [id number] was introduced through the anus and advanced [...] 10:34 AM Procedure Code(s): --- Professional --- 04145, Colonoscopy, flexible; diagnostic, including collection of specimen(s) by brushing or washing, when performed (separateprocedure) Diagnosis Code(s): --- Professional --- K57.30, Diverticulosis of large intestine without perforation orabscess without bleeding K64.9, Unspecified hemorrhoids CPT copyright 2019 [place] [employer]. All rights reserved. The codes documented in this report are preliminary and upon under presser reviewmay be revised to meet current compliance requirements. Recognized by the [place] [employer] Gastrointestinal [employer]oscopy for promoting quality in endoscopy Yunior Barber MD ENDOSCOPY PROCEDURES Final Re sult from Last 3 Months or Most Recently Relevant to Health Maintenance Insurance [facility] Advance Directives For more information, please contact: [phone] * Full Code (Latest Code Status on File) Date Activated Date Inactivated Comments 11/20/2020 10:55 AM 11/20/2020 4:37 PM * Full Code Date Activated Date Inactivated Comments 10/22/2020 10:43 AM 10/22/2020 4:47 PM * Full Code Date Activated Date Inactivated Comments 10/22/2020 10:43 AM 10/22/2020 10:43 AM * Full Code Date Activated Date Inactivated Comments 10/20/2020 10:09 AM 10/20/2020 2:59 PM Care Teams Freelance Programmer/App Developer Relationship Specialty Start Date End Date Unknown, Notinfile PCP - General 04/03/23
--- OUTSIDE RECORDS SUMMARY | 2024-06-15 23:54 | XMS_ITS ---
Author Organization [facility] Address [address] [place] [address] Care Team Providers Care Inner Tube Inserter Name Role Phone Bibi Lopez Primary Care Provider [phone] REASON FOR VISIT follow-up Social History Sex Assigned At : Social History Observation Description Sex Assigned At Female Encounters Encounter Location Date Provider Diagnosis [facility] [address] [address] 05/08/2024 Bibi Lopez Plan Of Treatment Next Appt Details Provider Name:Bibi gordon, 07/24/2024 11:20:00 AM, [address] [place], [address], Progress Notes * Dipika TRANDOB:[birth year] (54 yo F)Acc No.[id number]:05/08/2024 UNLOCKED PROGRESS NOTE Patient: Dipika COVARRUBIAS Provider: TOMÁS Fernández :1970 A ge:54 Y S ex:Female Date:05/08/2024 Address:[facility] Subjective: * Chief Complaints: * 1 . Follow-up. * Medical History: Objective: * Vitals: Assessment: Plan: * Treatment: * * Electronic signature of Ebony Lopez on 06/15/2024 at 11:54 PM CDT Sign off status: Pending * Provider: TOMÁS Fernández Date: 0 05/08/2024 Generated for Errol choi/Papito/eTransmitting on: 0 06/15/2024 11:54 PM CDT
[2024-06-16] VITALS (12 sets, daily range): BP systolic 100–118; BP diastolic 62–96; PULSE 69–82; RESP 12–20; O2SAT 93–100
[2024-06-16] MEDS: HYDROcodone/acetaminophen (*CRX) 5-325 MG TABLET 1 TAB PO (00:42)
[2024-06-16 00:44] LABS: Alanine Aminotransferase 19 U/L (6-35); Albumin Level 4.1 g/dL (3.5-5.1); Alkaline Phosphatase 120 U/L (38-126); Anion Gap 7 mmol/L (4-12); Aspartate Amino Transferase 42 U/L (14-36); Basophils Percent Auto 0.6 % (0.2-1.2); Bilirubin,Total 0.7 mg/dL (0.2-1.3); Blood Urea Nitrogen 14 mg/dL (7-17); CRP 7.4 mg/dL (<1.0); Calcium 8.9 mg/dL (8.4-10.2); Carbon Dioxide 29 mmol/L (22-30); Chloride 103 mmol/L (98-107); Eosinophils Absolute Auto 0.1 K/mm3 (0-0.3); Eosinophils Percent Auto 2.3 % (0-4.4); Estimated CRCL calculation 77 ml/min; Estimated Glomerular Filt Rate > 60; Glucose 137 mg/dL (65-110); Hematocrit 40.3 % (37.0-47.0); Hemoglobin 12.6 g/dL (12.0-15.0); Immature Granulocyte Absolute 0.04 K/mm3 (0.00-0.031); Immature Granulocyte Percent A 0.6 % (0-0.5); Lymphocytes Absolute Auto 3.48 K/mm3 (0.9-3.2); Mean Corpuscular HGB Conc 31.3 g/dl (32-36); Mean Corpuscular Hemoglobin 28.1 pg (26-34); Mean Platelet Volume 11.5 fl (7.4-10.4); Monocytes Absolute Auto 0.6 K/mm3 (0.1-0.6); Monocytes Percent Auto 9.5 % (2.6-8.5); Neutrophils Absolute Auto 1.9 K/mm3 (1.3-6.7); Platelet Count Result 224 k/mm3 (150-375); Potassium 3.6 mmol/L (3.4-5.0); Red Blood Count 4.48 M/mm3 (4.2-5.4); Red Cell Distribution Width 12.9 % (11.5-14.5); Sodium 139 mmol/L (137-145); White Blood Count 6.2 K/mm3 (4.5-10.0)
[2024-06-16 02:01] LABS: Erythrocyte Sedimentation Rate 42 mm/hr (0-20)
[2024-06-16] MEDS: PIPERACILLN/TAZ 3.375GM/NS50ML 3.375 GM/50 ML BAG IVPB (03:45)
[2024-06-16] MEDS: VANCOMYCIN 1,500 MG/NS 500 ML 1,500 MG/500 ML BAG 250 MG IVPB (04:40)
== END 2024-06-16 07:26 | disposition home or self-care (01) ==
PROVIDERS: Emergency Provider Emergency Medicine; PCP Emergency Medicine
DX: T81.89XA Other complications of procedures, not elsewhere classified, initial encounter (principal); M79.7 Fibromyalgia; G24.01 Drug induced subacute dyskinesia; F43.10 Post-traumatic stress disorder, unspecified; F31.9 Bipolar disorder, unspecified; F41.9 Anxiety disorder, unspecified; Z96.649 Presence of unspecified artificial hip joint; Z87.891 Personal history of nicotine dependence; Z79.84 Long term (current) use of oral hypoglycemic drugs; Z79.899 Other long term (current) drug therapy; Z79.85 Long-term (current) use of injectable non-insulin antidiabetic drugs; Y83.8 Other surgical procedures as the cause of abnormal reaction of the patient, or of later complication, without mention of misadventure at the time of the procedure
CPT/HCPCS: 36415; 73110; 80053; 85025; 85652; 86140; 87040; 87070; 87075; 87205; 96365; 96366; 96368; 99284; A9270; J2543; J3370

== ENCOUNTER 2024-06-23 22:46 | Inpatient (IN) | payer OTHER, SELFPAY ==
--- NOTE | ~2024-06-23 | CT_ITS ---
CT scan of the right wrist Abscess TECHNIQUE: Following intravenous administration of 100 cc of Omnipaque 350 contrast internal, axial i maging of the right wrist was performed. Sagittal and coronal reformatted images were constructed. Do se reduction technique was used on this scan by utilizing automated exposure control and iterative re construction technique. The dose-length product (DLP) was 440.70 mGy-cm. Findings: No fracture or dislocation seen. There is mild degenerative change of the first CMC joint. Remaining visualized joint spaces are intact. There is extensive fluid distention of the flexor digit orum longus tendon sheaths through the level of the carpal tunnel extending to the distal aspects of the metacarpals distally, and approximately the level of the distal radial ulnar metaphyses. There is peripheral enhancement of the tendon sheaths. IMPRESSION: Severe tenosynovitis of the flexor digitorum longus tendon sheaths, as detailed above. Superinfection not excluded. Correlate clinically. Reviewed, dictated and finalized at location .
[2024-06-23 22:47] VITALS: BP 151/86; PULSE 116; RESP 22; TEMP 37.1; O2SAT 98
--- OUTSIDE RECORDS SUMMARY | 2024-06-23 22:48 | XMS_ITS | Referral Summary ---
Author Organization [facility] Address [address] [place] [address] Care Team Providers Care Perfusionist Name Role Phone Unknown, Notinfile Primary Care [...] (10/20/2020): Added automatically from request for surgery [id number] Back pain with left-sided sciatica 10/19/2020 Diverticulosis 09/13/2020 Overview (09/13/2020): Added automatically from request for surgery [id number] Family history of colon cancer in mother 021 Overview (09/13/2020): Added automatically from request for surgery [id number] Hx of colonic polyps 09/13/2020 Overview (09/13/2020): Added automatically from request for surgery [id number] Diverticulosis of colon 09/11/2020 Assessment & Plan (09/11/2020 1:48 PM CDT): Colonoscopy and then recap in office Carpal tunnel syndrome of left wrist 06/30/2020 Tardive dyskinesia 04/28/2020 Complex dental caries 11/28/2019 Overview (11/28/2019): Added automatically from request for surgery [id number] Essential hypertension, malignant 11/28/2019 Overview (11/28/2019): Added automatically from request for surgery [id number] Breath, shortness 11/28/2019 Overview (11/28/2019): Added automatically from request for surgery [id number] Severe diabetes mellitus 11/28/2019 Overview (11/28/2019): Added automatically from request for surgery [id number] Posttraumatic stress disorder 11/28/2019 Overview (11/28/2019): Added automatically from request for surgery [id number] Anxiety 11/28/2019 Overview (11/28/2019): Added automatically from request for surgery [id number] Infection following a procedure, subsequent enco unter [...] on file 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 Testing performed by: [address] [address] Creatinine Ur 182.5 mg/dL [facility] ([place]) Comment: Interpretive Data No reference range established. Current interpretive data was last revised 2018. Testing performed by: [address], [address] Albumin Creatinine Ratio, Ur 17 1 - 29 mg/g [facility] ([place]) Comment:Testing performed by : [facility], [address] [facility], [address] Urine 11/17/2020 11:0 0 AM CDT 11/17/2020 2:34 PM CDT Carla Harrell REGULATORY INTERNSHIP LAB URINE ORDERABLES Final R esult Performing Organization Address [facility] de Phone Number [facility] ([place]) [address] [facility] [place] [address] * (ABNORMAL) Hemoglobin A1c (11/17/2020 10:48 AM [...] and children were not included. (Diabetes Care 31:0000-7084, 2008). The eAG is not equivalent to a fasting glucose. Blood 11/17/2020 10:4 8 AM CDT 11/17/2020 11:20 AM CDT Carla Harrell NP LAB BLOOD ORDERABLES Final R esult Performing Organization Address [facility] Co de Phone Number [facility] ([place]) [address] [facility] [place] [address] * (ABNORMAL) Lipid panel (11/17/2020 10:48 AM [...] 2017. Non-HDL Cholesterol 139 mg/dL [facility] ([place]) Comment: Interpretive Data Ages < or = [...] on 2017. Chol/HDL ratio 5 [facility] ([place]) Blood 11/17/2020 10:4 8 AM CDT 11/17/2020 11:20 AM CDT Carla Harrell REGULATORY INTERNSHIP LAB BLOOD ORDERABLES Final R esult [facility] ([place]) [address] [facility] Department [place] [address] * COLONOSCOPY (10/22/2020 10:34 AM CDT) Anatomical Region Laterality Modality Other Narrative Procedure Note Yunior Barber MD - 10/22/2020 10:34 AM CDT [facility] Patient Name: Dipika Tran Procedure Date: 10/22/2020 10:34 AM Date of : 1970 Admit Type: Outpatient Age: 50 Gender: Female Attending MD: Yunior Barber M.D. Room: [facility] ENDOSCOPY ROOM 2 Note Status: Finalized Patient [...] scope was passed under direct vision. TheColonoscope [id number] was introduced through the anus and advanced [...] 10:34 AM Procedure Code(s): --- Professional --- 40119, Colonoscopy, flexible; diagnostic, including collection of specimen(s) by brushing or washing, when performed (separateprocedure) Diagnosis Code(s): --- Professional --- K57.30, Diverticulosis of large intestine without perforation orabscess without bleeding K64.9, Unspecified hemorrhoids CPT copyright 2019 [place] [employer]. All rights reserved. The codes documented in this report are preliminary and upon senior stereo compiler team lead reviewmay be revised to meet current compliance requirements. Recognized by the [place] [employer] G[employer]intestinal [employer] for promoting quality in endoscopy Yunior Barber MD ENDOSCOPY PROCEDURES Final Re sult from Last 3 Months or Most Recently Relevant to Health Maintenance Insurance [facility] Advance Directives For more information, please contact: [phone] * Full Code (Latest Code Status on File) Date Activated Date Inactivated Comments 11/20/2020 10:55 AM 11/20/2020 4:37 PM * Full Code Date Activated Date Inactivated Comments 10/22/2020 10:43 AM 10/22/2020 4:47 PM * Full Code Date Activated Date Inactivated Comments 10/22/2020 10:43 AM 10/22/2020 10:43 AM * Full Code Date Activated Date Inactivated Comments 10/20/2020 10:09 AM 10/20/2020 2:59 PM Care Teams Perfusionist Relationship Specialty Start Date End Date Unknown, Notinfile PCP - General 04/03/23
--- OUTSIDE RECORDS SUMMARY | 2024-06-23 22:48 | XMS_ITS | Clinical Summary ---
Author Organization [facility] Address [address] [place] [address] Care Team Providers Care Supervisor Special Services Name Role Phone Unknown, Notinfile Primary Care [...] (10/20/2020): Added automatically from request for surgery [id number] Back pain with left-sided sciatica 10/19/2020 Diverticulosis 09/13/2020 Overview (09/13/2020): Added automatically from request for surgery [id number] Family history of colon cancer in mother 021 Overview (09/13/2020): Added automatically from request for surgery [id number] Hx of colonic polyps 09/13/2020 Overview (09/13/2020): Added automatically from request for surgery [id number] Diverticulosis of colon 09/11/2020 Assessment & Plan (09/11/2020 1:48 PM CDT): Colonoscopy and then recap in office Carpal tunnel syndrome of left wrist 06/30/2020 Tardive dyskinesia 04/28/2020 Complex dental caries 11/28/2019 Overview (11/28/2019): Added automatically from request for surgery [id number] Essential hypertension, malignant 11/28/2019 Overview (11/28/2019): Added automatically from request for surgery [id number] Breath, shortness 11/28/2019 Overview (11/28/2019): Added automatically from request for surgery [id number] Severe diabetes mellitus 11/28/2019 Overview (11/28/2019): Added automatically from request for surgery [id number] Posttraumatic stress disorder 11/28/2019 Overview (11/28/2019): Added automatically from request for surgery [id number] Anxiety 11/28/2019 Overview (11/28/2019): Added automatically from request for surgery [id number] Infection following a procedure, subsequent enco unter [...] on file Legal Sex Female 1: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 Current interpretive data was last revised 2018. Testing performed by: [facility], [address] [place] [address]., [address] Creatinine Ur 182.5 mg/dL GENEVIEVE FONSECA (NICANOR) Comment: Interpretive Data No reference range established. Current interpretive data was last revised 2018. Testing performed by: [facility], [address] [place] [address]., [address] Albumin Creatinine Ratio, Ur 17 1 - 29 mg/g GENEVIEVE FONSECA (NICANOR) Comment:Testing performed by : [facility], [address] [place] [address]., [id number] Urine 11/17/2020 11:0 0 AM CDT 11/17/2020 2:34 PM CDT Carla Harrell NP LAB URINE ORDERABLES Final R esult GENEVIEVE FONSECA ([place] SALLE) 1 [facility] Department [place] [address] * (ABNORMAL) Hemoglobin A1c (11/17/2020 10:48 AM [...] and children were not included. (Diabetes Care 31:4180-6058, 2008). The eAG is not equivalent to a fasting glucose. Blood 11/17/2020 10:4 8 AM CDT 11/17/2020 11:20 AM CDT Carla Kellie Harrell ON SITE SERVICES SPECIALIST LAB BLOOD ORDERABLES Final R esult GENEVIEVE FONSECA (NICANOR) 1 [facility] Department [place] [address] * (ABNORMAL) Lipid panel (11/17/2020 10:48 AM [...] CDT 11/17/2020 11:20 AM CDT Carla Harrell ON SITE SERVICES SPECIALIST LAB BLOOD ORDERABLES Final R esult GENEVIEVE FONSECA ([place]) 1 [facility] Department [place] [address] * COLONOSCOPY (10/22/2020 10:34 AM CDT) Anatomical Region Laterality Modality Other Narrative Procedure Note Yunior Barber MD - 10/22/2020 10:34 AM CDT [facility] Patient Name: Dipika Tran Procedure Date: 10/22/2020 10:34 AM Date of : 1970 Admit Type: Outpatient Age: 50 Gender: Female Attending MD: Yunior Barber M.D. Room: [facility] ENDOSCOPY ROOM 2 Note Status: Finalized Patient Profile: Refer to note in patient chart for documentation of history and physical. Procedure: Colonoscopy Indications: Last colonoscopy: 2014 Referring MD: Matilde Goddard MD Providers: Yuniro Barber M.D. Impression: - Preparation of the [...] scope was passed under direct vision. TheColonoscope [id number] was introduced through the anus and advanced [...] 10:34 AM Procedure Code(s): --- Professional --- 51041, Colonoscopy, flexible; diagnostic, including collection of specimen(s) by brushing or washing, when performed (separateprocedure) Diagnosis Code(s): --- Professional --- K57.30, Diverticulosis of large intestine without perforation orabscess without bleeding K64.9, Unspecified hemorrhoids CPT copyright 2019 [employer]. All rights reserved. The codes documented in this report are preliminary and upon quality assurance monitor body reviewmay be revised to meet current compliance requirements. Recognized by the [employer] for promoting quality in endoscopy Yunior Barber MD ENDOSCOPY PROCEDURES Final Re sult from Last 3 Months or Most Recently Relevant to Health Maintenance Insurance [facility] Advance Directives For more information, please contact: [phone] * Full Code (Latest Code Status on File) Date Activated Date Inactivated Comments 11/20/2020 10:55 AM 11/20/2020 4:37 PM * Full Code Date Activated Date Inactivated Comments 10/22/2020 10:43 AM 10/22/2020 4:47 PM * Full Code Date Activated Date Inactivated Comments 10/22/2020 10:43 AM 10/22/2020 10:43 AM * Full Code Date Activated Date Inactivated Comments 10/20/2020 10:09 AM 10/20/2020 2:59 PM Care Teams Supervisor Special Services Relationship Specialty Start Date End Date Unknown, Notinfile PCP - General 04/03/23
--- OUTSIDE RECORDS SUMMARY | 2024-06-23 22:48 | XMS_ITS | Encounter Summary ---
Author Organization [facility] Address [address] [place] [address] Care Team Providers Care Receptionist Name Role Phone Meme Samuel RN Unavailable Unavailable Omar Delarosa MD, Raymond Barceloneta Primary Care Prov ider Adelina Trinidad DO Unavailable Encounter Details Date Type Department Care Team (Late st Contact Info) Description 03/07/2022 [facility] Outpatient Visit 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 No / Unsure 03/03/2022 1:05 PM SINGE MACHINE OPERATOR documented as of this encounter Functional Status * Is person deaf or have serious hearing difficulty? Answer Date of Assessment Author No 12/31/2021 10:55 AM SINGE MACHINE OPERATOR Deneen Irene RN * Is person blind [...] Assessment Author No 12/31/2021 10:55 AM Deneen Rmoo RN documented as of this encounter Mental Status * Does person have difficulty concentrating/remembering/making decisions? Answer Entry Date Author No 12/31/2021 10:55 AM Deneen Romo RN documented in this encounter Plan of Treatment Not on file documented as of this encounter Visit Diagnoses Not on filedocumented in this encounter Care Teams Receptionist Relationship Specialty [place] [address] [place] [address] PCP - General Family Medicine 02/09/22 Meme Samuel RN Registered Nurse 02/06/17 Adelina Trinidad DO [address] [id number] Rheumatology 07/07/22 documented as of this encounter
--- OUTSIDE RECORDS SUMMARY | 2024-06-23 22:48 | XMS_ITS | Patient Health Record ---
Author Organization Pending sale to [facility] Address [address] [place] [address] Care Team Providers Care [employer] Crewmember Name Role Phone Bibi Lopez Primary Care [...] day Not-Taking Vitamin D (Ergocalciferol) 1.25 MG (96357 UT) 1 capsule Orally weekly Active Topiramate [...] Risk Notes Problem Schizoaffective disorder, bipolar type (46826817) Schizoaffective disorder, bipolar type (F25.0) Active confirmed Problem Insomnia disorder related to another mental disorder (22386143) Insomnia due to other mental disorder (F51.05) Active confirmed Problem Anxiety disorder (540720032) Anxiety disorder (F41.9) Active confirmed Problem Mild recurrent major depression (87313665) Depression, major, recurrent, mild (F33.0) Active confirmed Problem Posttraumatic stress disorder (56078426) Post traumatic stress disorder (PTSD) (F43.10) Active confirmed Problem Smoker (36345186) Smoker (F17.200) Active confi rmed Vital Signs Heart Rate 83 /min 05/22/2024 Respiratory Rate 16 /min 05/22/2024 Oximetry 97 % 05/22/2024 Blood pressure diastolic 82 mm Hg 05/22/2024 Height 65 in 05/22/2024 Blood pressure systolic 128 mm Hg 05/22/2024 Weight 207 lbs 05/22/2024 BMI 34.44 kg/m2 05/22/2024 Encounters Encounter Location Date Provider Diagnosis [address] [address] 05/22/2024 Bibi Lopez Schizoaffective disorder, bipolar type F25.0 ; Anxiety disorder F41.9 ; Post traumatic stress disorder (PTSD) F43.10 ; Depression, major, recurrent, mild F33.0 ; Insomnia due to other mental disorder F51.05 and Smoker F17.[address] [place] [address] 05/06/2024 Bibi Lopez [address] [place] [address] 05/06/2024 Bibi Lopez [address] [place] [address] 05/08/2024 Bibi Noeth Assessments Encounter Date Diagnosis [...] 05/22/2024 Smoker (ICD-10 - F17.200) Can call [phone] , you can speak confidentially with a highly trained quit head men's tennis coach. ( ) Not interested in quitting at this time despite benefits Plan Of Treatment Next Appt Details Provider Name:Bibi Barreto , 07/24/2024 11:20:00 AM, [address], [address], Insurance Providers Payer Name Payer Address Payer Phone Subscriber Number Group Number Insured Name Patient Relationship to Insured Coverage Start Date Coverage End Date [address] [phone] [id number] Dipika Tran Self - patient is the insured Medical (General) History Surgical History Surgery Date(Month/Year) left hip replacement Right hand repair
--- OUTSIDE RECORDS SUMMARY | 2024-06-23 22:48 | XMS_ITS | Continuity of Care Document ---
Author Organization [facility] Address [address] [place] [address] [place] [address] Phone Care Team Providers Care Measurement Technician Name Role Phone Thong Persaud MD Unavailable Unavailable Allergies, Adverse Reactions, Alerts Substance Reaction Status Criticality meloxicam Active No Information Medications Medication Instructions Dosage Effective Dates (start - stop) Status Comments Kent 5 mg-325 mg tablet take 1 tablet [...] Providers Copied on Encounter OFFICE/OUTPA TIENT VISIT, [facility], [address], [place], [place], [address], [place] tel:[phone] [facility] chronic pain (chief complaint) asthma1 (chief complaint) HTN (chief complaint) AsthmaEssential (primary) hypertensionChronic pain syndrome 6 Hung Ben[address]. [address], [place], [place], [address] , [place]. tel:[phone] Referring Provider: Asia Gutiérrez [address], [place], [place], [address]. tel:[phone] OFFICE/OUTPA TIENT VISIT, [facility], [address], [place], [place], [address], [place] tel:[phone] [facility] asthma1 (chief complaint) alcohol (chief complaint) back apin (chief complaint) arm numnbess1 (chief complaint) AsthmaAlcohol dependence, uncomplicatedChroni c pain syndromeNeuropathy 6 Hung Benito. [address], [place], [place], [address] , [place]. tel:[phone] Referring Provider: Asia Gutiérrez [address], [place], [place], [address]. tel:[phone] OFFICE/OUTPA TIENT VISIT, [facility], [address], [place], [place], [address], [place] tel:[phone] [facility] HTN (chief complaint) back pain1 (chief complaint) asthma (chief complaint) HLP (chief complaint) AsthmaLumbagoEssent ial (primary) hypertensionHyperli pidemia 6 Hung Benito. [address], [place], [place], [address] , [place]. tel:[phone] Referring Provider: Asia Gutiérrez [address], [place], [place], [address]. tel:[phone] OFFICE/OUTPA TIENT VISIT, [facility], [address], [place], [place], [address], [place] tel:[phone] [facility] headache1 (chief complaint) eye (chief complaint) back pain1 (chief complaint) HeadacheLumbagoEsse ntial (primary) hypertensionConjunc tivitis 6 Hung Benito. [address], [place], [place], [address] , [place]. tel:[phone] Referring Provider: Asia Gutiérrez [address], [place], [place], [address]. tel:[phone] OFFICE/OUTPA TIENT VISIT, [facility], [address], [place], [place], [address], [place] tel:[phone] [facility] HTN (chief complaint) back pain (chief complaint) lumbago1 (chief complaint) DM (chief complaint) HyperlipidemiaEssen tial (primary) hypertensionHeadach eLumbago 6 Hung Benito. [address], [place], [place], [address] , [place]. tel:[phone] Referring Provider: Asia Gutiérrez [address], [place], [place], [address]. tel:[phone] OFFICE/OUTPA TIENT VISIT, [facility], [address], [place], [place], [address], [place] tel:[phone] [facility] Medicine HTN (chief complaint) back pain1 (chief complaint) anxiety1 (chief complaint) Essential (primary) hypertensionChronic pain syndromeDepressionO besity 6 Hung Benito. [address], [place], [place], [address] , [place]. [phone] Referring Provider: Asia Gutiérrez [address], [place], [place], [address]. tel:[phone] OFFICE/OUTPA TIENT VISIT, [facility], [address], [place], [place], [address], [place] tel:[phone] [facility] chronic pain (chief complaint) HTN (chief complaint) HLP (chief complaint) anxiety1 (chief complaint) Chronic pain syndromeHyperlipide miaEssential (primary) hypertensionDepress ion 6 Hung Benito. [address], [place], [place], [address] , [place]. [phone] Referring Provider: Asia Gutiérrez [facility] [address], [place], [place], [address]. tel:[phone] OFFICE/OUTPA TIENT VISIT, [facility], [address], [place], [place], [address], [place] tel:[phone] [facility] COPD1 (chief complaint) cough1 (chief complaint) preDM (chief complaint) HLP (chief complaint) bipolar (chief complaint) Metabolic syndromeHyperlipide miaAcute bronchitisChronic pain syndrome 6 Hung Benito. [address], [facility] [address], [place], [place], [address] , [place]. [phone] Referring Provider: Asia Gutiérrez [facility] A, [place], [place], [address]. tel:[phone] PREV VISIT, NEW, AGE 40-64 [facility], [address] [place], [address], [place] tel:[phone] [facility] PHysical (chief complaint) Encounter for general adult medical exam w abnormal findingsType 2 diabetes mellitus without complicationsEssent ial (primary) hypertensionHyperli pidemia 6 Hung Benito. [address], [facility] A, [place], [place], [address] , [place]. [phone] Referring Provider: Asia Gutiérrez [facility] A, [place], [place], [address]. tel:[phone] Family History Family Member Type Diagnosis Age At Onset Brother Problem (finding) Alive and well Father Problem (finding) Leukemia Mother Problem (finding) colon [place] 47 Payers Payer name Insurance type Covered constitution party ID Authoriza tion(s) No Information Social History Type Description [...] Date Complaint History Of Prese nt Illness asthma1 Pt had benign ch est xray. [...] is doing ok with her pain now HTN Pt has HTN. Pt t akes losartan and propranolol. Her BP is stable arm numnbess1 Pt c/o bilateral arm numnbess for one month. Pt also has foot and leg numnbess. Pt sees neurology and was told she has pinch neve. Pt is on neurontin. Pt does not have diabetic neuropathy per my understanding. Pt c/o neck pain as well back apin Pt has chronic l ow [...] jax any acute SOB. Pt still smoking HTN Pt has HTN. Pt t akes [...] Mental Status Date Cognitive Assessment Orientation - Rad[place] ed to time, place, person, situation.
--- OUTSIDE RECORDS SUMMARY | 2024-06-23 22:49 | XMS_ITS | Data Portability ---
Author Organization [facility] Address [address] [place] [address] Care Team Providers Care Disposal Man Name Role Phone JOY PICKARD Supervisor Pipe Finishing Assessment Encounter Date Assessment Date Assessment LastModified [...] 2, meaningfu l use set 2024 025 eeCherry Bugsa [facility], [address] [place] [address], [address], 5 11:16:05 hepatitis B surface Ab, qualitati ve, serum 2024 025 eeCherry Bugsa [facility], [address] [place] [address], [address], 5 11:16:05 HBsAg (hepatiti s B surface Ag), EIA, serum 2024 025 [facility], [address] [place] [address], [address], 5 11:16:05 RPR (rapid plasma reagin), serum 2024 025 [facility], [address] [place] [address] [place], [address], 5 11:16:06 Hepatitis C IgG Ab, qual, serum 2024 025 eemeryma [facility], [address] [facility], [facility], [place], [address], 11:16:06 vaginal pathogens panel, ALMITA+probe , vaginal fluid 2024 025 DANIELLE [facility], [address], [address], [place], [address], 06:37:27 urinalysi s, dipstick 2021 022 DANIELLE In-Office Order, Internal Use Only DO Not Attach Compendium DO Not Attach Compendium, Do Not Delete/merge, [id number] 15:34:00 culture, urine 2021 022 DANIELLE [facility], [address] [facility], [facility], [place], [address], 11:55:43 HbA1c (hemoglob in A1c), blood 2021 022 In-Office Order, Internal Use Only DO Not Attach Compendium DO Not Attach Compendium, Do Not Delete/merge, [id number] 11:55:36 HbA1c (hemoglob in A1c), blood 2020 022 DANIELLE [facility], [address] [facility], [facility], [place], [address], 03:10:52 albumin/c reatinine , mass ratio, urine 2020 022 DANIELLE [facility], [address] [facility], [facility], [place], [address], 03:10:52 CMP, serum or plasma 2020 022 DANIELLE [facility], [address], [place], [address], 03:10:53 CBC 2020 022 DANIELLE [facility], [address], [place], [address], 03:10:53 lipid panel, serum 2020 022 DANIELLE [facility], [address], [place], [address], 03:10:53 HbA1c (hemoglob in A1c), blood 2020 021 DANIELLE [facility], [address], [place], [address], 15:12:35 albumin/c reatinine , mass ratio, urine 2020 021 DANIELLE [facility], [address], [place], [address], 15:12:34 CMP, serum or plasma 2020 021 DANIELLE [facility], [address], [place], [address], 15:12:34 CBC w/ auto diff 2020 021 DANIELLE [facility], [address], [place], [address], 15:12:34 lipid panel, serum 2020 021 DANIELLE [facility], [address], [place], [address], 15:12:35 CBC 2020 021 DANIELLE [facility], [address], [place], [address], 1 15:12:34 Referral orthopedi c surgeon referral - Please contact patient to schedule appointme nt. Thank you 2020 DANIELLE Hernandez PA-C, [address] [facility] , [address], [place], [address], 2 11:53:46 pain managemen t referral - Please contact patient to schedule appointme nt. Thank you 2020 tonja Ferris MD, 3 [facility], [address], [place], [address], 2 16:43:03 gastroent erologist referral - Please call patient to schedule - Thank you 2020 DANIELLE Barber MD, [address] [facility] [address], [address], [place], [address], 15:14:17 Procedures None recorded. Surgeries None recorded. Imaging None recorded. Medication Orders Macrobid 100 mg capsule 2021 [facility]/Pharmacy #[id number], [address] [place], [address], 2 08:26:19 acetamino phen 300 mg-codein e 30 mg tablet 2021 [facility]/Pharmacy #[id number], [address] [place], [address], 5 14:03:49 clobetaso l 0.05 % scalp solution 2021 [facility]/Pharmacy #6833, [address] [place], [address], 5 14:04:30 diclofena c sodium 75 mg tablet,de layed release 2021 [facility] [address] [place], [address], 2 11:55:45 pregabali n 50 mg capsule 2021 022 [facility]/Pharmacy #6833, [address] [place], [address], 2 14:18:41 losartan 100 mg tablet 2021 022 [email or web address]/Pharmacy #6833, [address] [place], [address], 5 14:06:57 tramadol 50 mg tablet 2020 021 [facility] [address] [place], [address], 2 14:16:27 omeprazol e 20 mg capsule,d elayed release 2020 021 [facility]/Pharmacy #6833, [address] [place], [address], 1 15:22:41 omeprazol e 20 mg capsule,d elayed release 2020 021 [facility]/Pharmacy #6833, [address] [place], [address], 1 15:57:11 Cipro 500 mg tablet 2020 021 [email or web address] [facility]/Pharmacy #6833, [address] [place], [address], 14:43:28 Flagyl 500 mg tablet 2020 021 [email or web address] [facility]/Pharmacy #6833, [address] [place], [address], 1 14:44:43 tramadol 50 mg tablet 2020 021 [facility]/Pharmacy #4297, [address] [facility], [place], [address], 14:16:27 Patient TargetsNo targets recorded. Patient Instructions Encounter Date Encounter Id Patient Instructions Last Modified By Organization Details Last Modified Time 08/25/2020 [id number] sore throat: car e instructions Not available 08/25/2020 16:24:57 Take all antibio tics prescribed to you. If any fever or increase in pain, call/return to office. 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 Referral for Diverticulosis of colon Please call [...] [facility] ([facility] Only) [address], [place], [address], 06/03/2021 06:33:45 05/13/19 22 05/12/2021 urina lysis , dipst ick Leukocytes Negati ve Not Available In-Office Order Internal Use Only DO Not Attach Compendium DO Not Attach Compendium, Do Not Delete/merge, [id number] 05/12/2021 11:46:42 05/13/19 22 05/12/2021 urina lysis [...] 05/12/2021 urina lysis , dipst ick Specific Fence 1.010 Not Available In-Off ice Order Internal [...] - 2 score abnormal Not Available [facility] ([facility]) [address] [place], [address], 03/21/2024 06:37:27 03/19/1903/20/2024 NUA B VAGIN ITIS PLUS (VG+) bvab 2 HIGH - 2 score abnormal Not Available [facility] ([facility]) [address] [facility], [place], [address], 03/21/2024 06:37:27 03/19/1903/20/2024 [facility]G+) megasphaera [...] prese nce of BV. Not Available [facility] ([facility]) [address] [place], [address], 03/21/2024 06:37:27 03/19/1903/20/2024 NUA B VAGIN ITIS PLUS (VG+) luis albicans, ALMITA NEGATI VE negati ve Not Available [facility] ([facility]) [address] [place], [address], 03/21/2024 06:37:27 03/19/19 25 03/20/2024 NUA B VAGIN ITIS PLUS (VG+) luis glabrata, ALMITA NEGATI VE negati ve Not Available [facility] ([facility]) [address] [place], [address], 03/21/2024 06:37:27 03/19/1903/21/2024 NUA B VAGIN ITIS PLUS (VG+) trich vag by ALMITA NEGATI VE negati ve Not Available [facility] ([facility]) [address] [facility], [place], [address], 03/21/2024 06:37:27 03/19/19 25 03/21/2024 NUA B VAGIN ITIS PLUS (VG+) chlamydia trachomatis, ALMITA NEGATI VE negati ve Not Available [facility] ([facility]) [address] [facility], [place], [address], 03/21/2024 06:37:27 03/19/1903/21/2024 NUA B VAGIN ITIS PLUS (VG+) neisseria gonorrhoeae, ALMITA NEGATI VE negati ve Not Available [facility] ([facility]) [address] [facility], [place], [address], 03/21/2024 06:37:27 07/07/19 22 07/03/2021 MAMMO , scree nic, digit al, bilat eral No observ ation record ed. [email or web address] [facility] [address], [place], [address], 07/07/2021 10:31:05 Result Notes None recorded. Problems Name Problem SNOMED Code Status Onset Date Resolution Date Notes Provider Name and Address Organization Details Recorded Time Lumbago with sciatica 616620526 Active 2015 Not Available [facility] 0 10:24:13 Diabetic peripher al neuropat hy 894180214 Active 2015 Not Available [facility] 0 10:24:13 Neck pain 80054456 Active 2016 Not Available [facility] 0 10:24:13 Cervical radiculo alistair 60874006 Active 2015 Not Available [facility] 0 10:24:13 Disorder of wrist 713403355 Active 2016 Not Available [facility] 0 10:24:13 Meralgia paresthe bora 71449091 Active 2015 Not Available [facility] 0 10:24:14 Anxiety 01105402 Completed 201506/03/2020 Carla Harrell APN, FNP-C Attn: Accounting ,[address] [facility], [place], [address] , [place] - [place] 1 15:43:43 Fibromya lgia 953796553 Active 2015 Not Available [facility] 0 10:24:14 Carpal tunnel syndrome of right wrist 77194579340 9108 Active 2016 Not Available [facility] 0 10:24:14 Pronator syndrome 579830768 Active 2016 Not Available [facility] 0 10:24:14 Lumbago with sciatica 735933394 Active 2017 Not Available [facility] 0 10:24:13 Anxiety disorder 293126665 Active 2017 Not Available [facility] 0 10:24:13 Postoper ative infectio n 78313512 Completed 201706/03/2020 Carla Harrell APN, FNP-C Attn: Accounting ,[address] [facility], [place], [address] , [place] 1 15:44:05 Depressi ve disorder 60361056 Active 2020 Carla Harrell APN, FNP-C Attn: Accounting ,[address] [facility], [place], [address] , [place] 1 15:01:45 Gastroes ophageal reflux disease without esophagi tis 308607408 Active 2020 Carla Harrell APN, FNP-C Attn: Accounting ,[address] [facility], [place], [address] , [place] 1 15:50:34 Obesity 022336472 Active 2020 Carla Harrell APN, F[employer] SYSTEMS ENGINEER-C Attn: Accounting ,[address] [facility], [place], [place], [address] [place] [address] , [place] [facility] 1 15:59:58 Divertic ulosis of colon 527437590 Active 2020 Carla Harrell APN, [employer] ENGINEER-C Attn: Accounting ,[address] [facility], [place], [place], [address] [place] [address] , [place] [facility] 1 23:17:39 Carpal tunnel syndrome of left wrist 18466373875 9102 Active 2020 Carla Harrell APN, F[employer] ENGINEER-C Attn: Accounting ,[address] [place], [place], [address] [place] [address] , [facility] 1 15:21:46 Bronchit is 21497348 Completed 02/08/2016 Ximena Ward PA-C Attn: Accounting ,[address] [place], [place], [address] [place] [address] , [facility] 6 14:01:55 Lumbar radiculo alistair 668125914 Active seeing pain mgmt Not Available [facility] 0 10:24:13 Urinary tract infectio us disease 37778215 Completed 02/08/2016 Ximena Ward PA-C Attn: Accounting ,[address] [place], [place], [address] [place] [address] , [place] 6 14:02:43 Essentia l hyperten malvin 10343829 Active Not Available [facility] 0 10:24:13 Type 2 diabetes mellitus 18404166 Active Not Available [facility] 0 10:24:13 Hyperlip idemia 03596243 Active Not Available [facility] 0 10:24:14 Neuropat hy due to diabetes mellitus 292717046 Active Not Available [facility] 0 10:24:13 Degenera tion of lumbar interver tebral disc 67945992 Active 08/2015 Lumbar injectio n from Dr. Pollock Not Available [facility] 0 10:24:13 Tobacco user 836590270 Active Not Available [facility] 0 10:24:13 Schizoph grace 66693711 Active Not Available [facility] 0 10:24:13 Bipolar disorder 72699036 Active Not Available [facility] 0 10:24:13 Posttrau matic stress disorder 82091278 Active Not Available [facility] 0 10:24:13 Chronic obstruct darlene pulmonar y disease 85724031 Active Not Available [facility] 0 10:24:13 Acute bronchit is 21055404 Completed 02/08/2016 Ximena Ward PA-C Attn: Accounting ,[address] [place], [address] , [facility] - [facility] 6 14:01:46 Morbid obesity 788766150 Active Not Available [facility] 0 10:24:13 Bacteria l vaginosi s 190558308 Completed 02/08/2016 Ximena Ward PA-C Attn: Accounting ,[address] [place], [address] , [place] [facility] 6 14:02:36 Disorder of vitamin D 714127446 Active 2016 Not Available [facility] 0 10:24:13 Tobacco dependen ce syndrome 46693946 Active 2016 Not Available [facility] 0 10:24:13 Pain in right thumb 99467087525 49072 Completed 201601/16/2018 Carla Harrell APN, F[employer]S ENGINEER-C Attn: Accounting ,[address] [place], [address] , [place] 8 16:47:26 Notes:[facility], mission and discharge is 10/09-DX: Principal Lumbar radiculopathy. Problem Notes None recorded. Procedures Surgical History Date Name Laterality Status Provider Name and Address Organization Details Recorded Time 4 total replacement of hip completed Sahra Parker [place] [facility] 03/19/2024 14:14:44 2 Date of Last Mammogram completed Sahra Parker [place] - [facility] 03/19/2024 14:10:49 0 Date of Last Pap Smear completed Sahra Parker [place] 11/26/2019 12:09:11 7 Carpal tunnel surgery completed Betsy Haywardte [place] 10/14/2019 14:01:56 Tubal Ligation completed Jalyn Cruzanagan [facility] 04/16/2014 11:56:56 Dilation and Curettage completed Jalyn Cruzanagan [place] - [facility] 04/16/2014 11:56:56 Caesarean Section completed Sahra Parker [place] - [facility] 05/06/2015 10:47:39 Imaging Results Imaging Date Name Status LastModified by Organiz ation Details LastModified Time 07/03/2021 MAMMO, screening, digital, bilateral completed [email or web address] [facility]- [address], [place], [address], 07/07/2021 10:31:05 Procedure Notes None recorded. Medical Equipment None Reported. Allergies Allergen ID Allergen Name Allergen Category Reaction Reaction Severity Criticality Documentation Date Start Date Code Code System Note Provider Name and Address Organization Details Recorded Time 142759 meloxicam medicatio n Not available Not available Not available 02/21/20172015 10015 RxNorm Other react ions and sever ities : 'Swel ling - Mild' . Carla Harrell APN, F[employer] SYSTEMS ENGINEER-C Attn: Lottie smith,[address] [place], [address] [place] [address] - [facility] 8 09:12:51 363488 propranol ol medicatio n other moderate Not available 05/12/2021 8787 RxNorm stoma ch pain Betsymoira barker, [place] - [place] 2 11:38:47 7692 Mobic medicatio n other moderate Not available 01/29/2014 88299 9 RxNorm NURYS Bonds, [place] - [place] 4 15:47:52 Medications Name Sig Start Date Stop Date [...] and Address Organization Details Last Updated DateTime 165.1 cm 43.5 kg/m2 771435. 36 g 97 % 97 % 86 /min 16 /min 97.8 [degF] 132 mm[Hg] 82 mm[Hg] Ashutohs Yao MA [facility] 1 15:30:36 Date Recorded Body height Body mass index (BMI) Body weight Oxygen saturation Oxygen saturation in Arterial blood by Pulse oximetry Heart rate Respiratory rate Body temperature Systolic blood pressure Diastolic blood pressure Provider Name and Address Organization Details Last Updated DateTime 1 165.1 cm 41.4 kg/m2 745018. 5 g 96 % 96 % 76 /min 16 /min 97.2 [degF] 136 mm[Hg] 94 mm[Hg] Betsy Saeed [facility] 1 14:53:03 Date Recorded Systolic blood pressure Diastolic blood pressure Provider Name and Address Organization Details Last Updated DateTime 01/29/2021 132 mm[Hg] 88 mm[Hg] Carla Harrell APN, F[employer] CE[employer]S ENGINEER-C Attn: Accounting,[address] [place], [address], [facility] 01/29/2021 15:10:19 Date Recorded Body height Body mass index (BMI) Body weight Oxygen saturation Oxygen saturation in Arterial blood by Pulse oximetry Heart rate Respiratory rate Body temperature Systolic blood pressure Diastolic blood pressure Provider Name and Address Organization Details Last Updated DateTime 2 165.1 cm 40.9 kg/m2 692292. 72 g 94 % 94 % 106 /min 16 /min 97.3 [degF] 130 mm[Hg] 80 mm[Hg] Betsy Saeed [facility] 2 11:43:07 Date Recorded Body height Body mass index (BMI) Body weight Heart rate Oxygen saturation Oxygen saturation in Arterial blood by Pulse oximetry Body temperature Systolic blood pressure Diastolic blood pressure Provider Name and Address Organization Details Last Updated DateTime 5 165.1 cm 35.5 kg/m2 67833.9 7 g 77 /min 97 % 97 % 98.5 [degF] 139 mm[Hg] 87 mm[Hg] Sahra Parker [place] - [facility] 5 13:56:51 Social History Question Answer Notes LastModified by Organizat ion Details LastModified Time Tobacco Smoking Status Current Every Day Smoker Perla Simmons [place] null, [place] [facility] 01/29/2014 15:47:01 Do You Have An Advance [...] available 05/06/2015 What Is Your Occupation? Unemployed [email or web address] Information not available 10/14/2019 Are There Any [...] Anxious, Or Unable To Sleep At Night)? [id number] Information not available 06/03/2020 Do You Use [...] Father Myelodysplas tic syndrome (clinical) 76 77 [email or web address] Not available 14:21:27 Paternal Grandmother Hypertensive disorder [email or web address] Not available 2015 14:47:36 Maternal Grandmother Malignant tumor of pelvis bladde r [email or web address] Not available 10/14/2019 14:19:17 Maternal Grandmother Diabetes mellitus crexford Not available 2015 14:47:36 Paternal Aunt Malignant tumor of breast 68 68 [email or web address] Not available 09/21 14:18:23 Medical History Condition Response Coronary Artery Disease N Other N Atrial Fibrillation N High Blood Pressure Y Breast Cancer N Depression Y COPD Y Blood Clots N Lung Disease N Breast Problem N [...] Eating Disorder N Anemia N Heart Attack ([place]) N Ovarian Cancer N Diabetes Y Blood Transfusions N Seizures/Epilepsy N Have you had a colonoscopy in the last 1 0 years? Y Abuse/Domestic Violence N Allergies Y Asthma Y Have you had a PSA blood [...] virus, quadrivalent, PF 9 completed Not Available [facility] 07/03/2021 19:41:06 Influenza, split virus, quadrivalent, preservative 9 completed Not Available [facility] 07/03/2021 19:41:06 Influenza, split virus, quadrivalent, PF 0 completed Not Available [facility], [facility] 07/03/2021 19:41:06 Influenza, split virus, quadrivalent, preservative 0 completed Not Available [facility], [facility] 07/03/2021 19:41:06 Pneumococcal conjugate PCV 13 4 completed Not Available [facility], [facility] 07/03/2021 19:41:06 Tdap 2 completed Not Available [facility], [facility] 07/03/2021 19:41:06 Influenza, split virus, quadrivalent, preservative 7 completed Not Available [facility] 03/09/2019 02:39:52 pneumococcal polysaccharide PPV23 7 completed Not Available [facility] 03/09/2019 02:46:08 Influenza, split virus, quadrivalent, preservative 7 completed Not Available [facility], [facility] 03/09/2019 02:34:26 Influenza, split virus, quadrivalent, preservative 8 completed Not Available [facility] 03/09/2019 02:36:00 Influenza, split virus, trivalent, preservative 4 completed Not Available [facility] 03/09/2019 02:51:03 Influenza, split virus, quadrivalent, PF 1 completed Betsy barker, [facility] 01/29/2021 16:43:42 Tdap 5 completed JOY PICKARD MD Attn: Accounting,[address] [place], [address], [facility] 03/19/2024 14:47:46 Pneumococcal conjugate PCV20, polysaccharide [id number] conjugate, adjuvant, PF 5 completed JOY PICKARD MD Attn: Accounting[address] [place], [address], [facility] 03/19/2024 14:47:46 Past Encounters Encounter ID Performer Location Encounter Start Date Encounter Closed Date Diagnosis/Indication Diagnosis SNOMED-CT Code Diagnosis ICD10 Code Diagnosis Note [id number] [facility] [address] [place] [address] 01/29/2014 14:25:27 01/29/2014 16:34:25 Essential hypertension 57834504 well controlled . Continue Medication s Type 2 berta betes mellitus 11239876 well controlled . Last HBA1C was 5.7 on 09/10/13. Continue medication s. Hyperlipidemia 71763641 continue Simvastati n. Repeat the Lipid panel. Neuropathy due to diabetes mellitus 134622325 Patient takes Gabapentin 600 mg po 4 times daily. Degenerati on of lumbar intervertebral disc 52987184 Following Pain management and . Currently on Hydrocodon e prescribed by . Tobacco user 821881266 a dvised patient to quit smoking. Chronic ob structive pulmonary disease 62069808 continue Symbicort and Proair. Needs infl uenza immunization 720896144 [id number] [facility] [address] [place] [address] 04/16/2014 10:41:59 04/16/2014 12:32:17 Bronchitis 11960841 Afebrile.S aturating 98% on room air. will give Z pack. Continue Symbicort and Proair. Advised patient to use otc Mucinex. Advised patient to quit smoking. [id number] Riley Ha MD [facility] (Adult Med) [address] [place] [address] 06/05/2014 09:54:53 06/05/2014 11:15:32 Essential hypertension 11828422 well controlled . Continue Medication s Type 2 berta betes mellitus 86926185 well controlled . Last HBA1C was 6.3 Continue medication s. Hyperlipidemia 37368613 Increase the Simvastati n to 40 mg po daily Repeat the Lipid panel in 4 months. Chronic ob structive pulmonary disease 91430017 continue Symbicort and Ventolin.. Tobacco user 685513209 a dvised patient to quit smoking. [id number] Cally De León [facility] (Adult Med) [address] [place] [address] 09/11/2014 14:45:48 09/11/2014 16:52:31 Urinary tract infectious disease 35266356 Starting cipro 250 mg bid for 3 days. Continue fluids. Heat or ice pack prn back discomfort . [id number] [facility] [address] [place] [address] 10/06/2014 13:44:51 10/06/2014 14:57:02 Essential hypertension 01071092 well controlled . Continue Medication s Type 2 berta betes mellitus 10142216 well controlled . Last HBA1C was 5.9 Continue medication s. Hyperlipidemia 77027706 LDL well controlled . Continue Simvastati n. Repeat the Lipid panel in 4 months. Chronic ob structive pulmonary disease 17060731 continue Symbicort and Ventolin. Advised patient to quit smoking. Neuropathy due to diabetes mellitus 241166842 Patient is c/o neuropathi c pains in the legs.she is not taking the Neurantin. Patient is waiting to see the new Neurologis t. will refill the Gabapentin . [id number] Cally De León, [facility] (Adult Med) [address] [place] [address] 12/15/2014 14:58:22 12/15/2014 15:53:26 Acute bronchitis 48298444 J20.4 Patient to try mucinex otc to loosen secretions . Tessalon perles prn and zpak to start in 3 days if not better. [id number] [facility] [address] [place] [address] 03/10/2015 10:19:15 03/11/2015 15:04:03 Type 2 diabetes mellitus 79229420 E11.9 well controlled . Last HBA1C was 5.7. Continue same medication s. Essential hypertension 70821304 I10 well controlled . Continue Medication s Hyperlipidemia 97102564 E78.2 LDL well controlled . Continue Simvastati n. Chronic ob structive pulmonary disease 58335010 J44.9 continue Symbicort and Ventolin. Advised patient to quit smoking. Morbid obesity 853042197 E66.01 Advised 1500 calories low fat,low cholestero l,low carb diiabetic diet,regul ar exercise and weight reduction. Tobacco user 567196398 Z 72.0 advised patient to quit smoking. [id number] [facility] [address] [place] [address] 05/06/2015 10:24:45 05/06/2015 11:31:24 Gynecologic examination 74156735 Z01.419 Venereal d isease screening 316547764 Z11.3 RTO one week for results. Screening for malignant neoplasm of breast 820514280 Z12.39 Screening for malignant neoplasm of colon 542346710 Z12.11 Has appointmen t in [place] 05/2015. Bacterial vaginosis 4197 51723 N76.0 Diagnosis d/w pt. Rx sent to pharmacy. Instructio dayami discussed. [id number] MD Zehra [facility]halto (IN[employer]ER) [address] [place] [address] 05/20/2015 14:35:33 06/11/2015 17:28:40 Gynecologic examination 45330203 Z01.419 Pap was negative with negative hr-HPV, dwp. Venereal d isease screening 865340294 Z11.3 Vaginal culture was negative for gonorrhea, chlamydia, and trichomona s. STD panel was completely negative. Individual test results d/w pt. [id number] Carla Harrell APN, [facility] (Adult Med) [address] [place] [address] 03/16/2016 10:45:24 03/16/2016 12:17:03 Type 2 diabetes mellitus 66562700 E11.9 Last HBA1C was 5.7. Continue same medication s. Dr David Persaud said she was no longer DM, Lab today. Essential hypertension 46791150 I10 well controlled . Continue propranolo l and losartan Hyperlipidemia 94924177 E78.2 LDL well controlled . Continue Simvastati n. Chronic ob structive pulmonary disease 55328302 J44.9 continue Symbicort and Ventolin. Advised patient to quit smoking. Morbid obesity 429254866 E66.01 advised 1500 calorie low fat, low cholestero l, low carb diet, regular exercise and weight reduction. Lumbar radiculopathy 128 603411 M54.16 please have records sent from Dr Persaud Adult [facility] th examination 138135354 Z00.00 Well woman exam advised, keep yearly apt. Conjunctivitis 8058550 H 10.9 Tobacco de pendence syndrome 03966243 F17.290 Continue to cut back on smoking. Upper resp iratory infection 97966321 J06.9 [id number] Carla Harrell APN, [facility] (Adult Med) [address] [place] [address] 04/18/2016 14:46:15 04/18/2016 16:07:09 Type 2 diabetes mellitus 58134746 E11.9 Last HbA1C was 5.9. Continue same medication s. Essential hypertension 14640836 I10 well controlled . Continue propranolo l and losartan. Chronic ob structive pulmonary disease 98593576 J44.9 continue Symbicort and Ventolin. Advised patient to quit smoking. Morbid obesity 369635596 E66.01 advised 1500 calorie low fat, low cholestero l, low carb diet, regular exercise and weight reduction. Tobacco de pendence syndrome 43453955 F17.290 Continue to cut back on smoking. Disorder of vitamin D 38 7337106 E56.9 When out of refills of weekly replacemen t, have blood drawn. Administra tion of influenza vaccine 27263455 Z23 [id number] Carla Harrell APN, FNP-C [facility] (Adult Med) [address] [place] [address] 08/17/2016 15:04:52 08/18/2016 09:15:45 Essential hypertension 88419045 I10 well controlled . Continue propranolo l and losartan. Disorder of vitamin D 38 7999633 E56.9 When out of refills of weekly replacemen t, have blood drawn. Type 2 berta betes mellitus 41109146 E11.9 Last HbA1C was 5.9. Continue ASA, metformin Morbid obesity 658227123 E66.01 advised 1500 calorie low fat, low cholestero l, low carb diet, regular exercise and weight reduction. Bipolar disorder 6057180 4 F31.9 cont medication s as prescribed by Tammy Feliz at [facility]; f/u with [facility] Administra tion of pneumococcal vaccine 48689001 Z23 Tobacco de pendence syndrome 27827976 F17.290 Continue to cut back on smoking. Chronic ob structive pulmonary disease 53038331 J44.9 continue aerospan and Ventolin. Advised patient to quit smoking. Hyperlipidemia 89074934 E78.2 LDL well controlled . Continue Simvastati n. Neuropathy due to diabetes mellitus 229789123 E11.[address] Jaeger. Pain in right thumb 1076 868037 780533 M79.644 fell on 08/11; landed on right hand trying to catch herself; Medication monitoring 39 4310632 Z51.81 Pain contract signed 03/16/16On tramadol-M ay need refill sooner due to increased pain from fall; no refills until drug screen; dwp no more than 4 tramadol per day. will be picking up today; May not refill until 09/07 at earliest if drug screen clean. Lesion of skin of face 0179966002 06 L98.9 [id number] Carla Harrell APN, FNP-C [facility] (Adult Med) [address] [place] [address] 10/19/2016 14:41:02 10/20/2016 13:52:15 Pain in right thumb 3060240587 718593 M79.644 fell on 08/11; landed on right hand trying to catch herself; reprinted xray orders, RICE Acute maxi llary sinusitis 62142932 J01.00 Conjunctivitis 3776416 H 10.9 [id number] MD Tal Guardado (Adult Med) [address] [place] [address] 12/19/2016 14:49:29 12/19/2016 17:54:17 Essential hypertension 63803265 I10 well controlled . Continue propranolo l and losartan. Hyperlipidemia 25890580 E78.2 LDL well controlled . Continue Simvastati n. Type 2 berta betes mellitus 37952869 E11.9 last a1c was 6.0 Chronic ob structive pulmonary disease 92066055 J44.9 Smoking cessation encouraged . Anxiety 32326620 F41.9 short term to help with anxiety state and not sleeping Administra tion of influenza vaccine 28324216 Z23 [id number] MD Tal Guardado (Adult Med) [address] [place] [address] 06/20/2017 15:35:33 06/21/2017 08:44:28 Chronic obstructive pulmonary disease 01510567 J44.9 Smoking cessation encouraged . Type 2 berta betes mellitus 06804333 E11.9 last a1c was 6.0, needs labs done Hyperlipidemia 77126359 E78.2 LDL well controlled . Continue Simvastati n. Essential hypertension 30149390 I10 well controlled . Continue propranolo l and losartan. Tobacco de pendence syndrome 53179533 F17.290 Continue to cut back on smoking. Morbid obesity 144799083 E66.01 advised low fat, low cholestero l, low carb diet, regular exercise and weight reduction. Bipolar disorder 3478514 4 F31.9 had medication s prescribed by Tammy Feliz at [facility], was fired due to no shows, was in hospital Schizophrenia 43558638 F 20.[address], not out of medication yet Fibromyalgia 214707519 M 79.7 diagnosed at [place] about 8 years ago, dwp doing yoga or other exercises to help stretch daily Dysuria 18751022 R30.0 Lumbago with sciatica 20 7722080 M54.41 M54.42 may cont with naproxen, seeing pain mgmt for injections [id number] MD Tal Guardado (Adult Med) [address] [place] [address] 09/27/2017 11:18:27 09/27/2017 14:25:26 Contact dermatitis 13857513 L25.9 dwp to not use off bug spray as she is likely allergic, will advise to use steroid cream topically to skin Pruritic disorder 888023 002 L29.9 rosa arms and posterior neck, dwo to avoid scratching skinwill provide vistaril to help with itching [id number] MD Tal Guardado (Adult Med) [address] [place] [address] 11/13/2017 11:41:02 11/13/2017 15:22:16 Administration of influenza vaccine 36174585 Z23 [facility] handout provided Anxiety disorder 4279712 06 F41.9 June cont prn vistaril until seen by psych, needs records release signed Loss of consciousness 41 7014135 R55 pt is poot historian and has unknown seizure hx, possibly had once before in her life; states her friends watched her pass out ; seizure hx with biological sister Dysuria 39229604 R30.0 urine pos for nitrates, blood and leuk, will send for culture as well as treat with [id number] MD Tal Guardado (Adult Med) [address] [place] [address] 2018 16:12:43 01/17/2018 11:40:22 Type 2 diabetes mellitus 54836546 E11.9 last a1c was 5.6 in 09/2017 Essential hypertension 23487047 I10 well controlled . Continue propranolo l 40 mg tid and losartan. Hyperlipidemia 19122215 E78.2 LDL well controlled . Continue Simvastati n. Disorder of vitamin D 38 7769054 E56.9 recheck Chronic ob structive pulmonary disease 38050749 J44.9 Smoking cessation encouraged . Tobacco de pendence syndrome 20389404 F17.290 Continue to cut back on smoking. Morbid obesity 691639184 E66.01 advised low fat, low cholestero l, low carb diet, regular exercise and weight reduction. Lumbago with sciatica 20 0448257 M54.41 M54.42 cont with pain mgmt as well, may have flexeril prn Screening for malignant neoplasm of colon 713472481 Z12.11 [id number] MD Tal Guardado (Adult Med) [address] [place] [address] 08/14/2018 11:23:15 08/15/2018 12:54:16 Type 2 diabetes mellitus 14892753 E11.9 last a1c was 5.6 in 09/2017, dwp to cont metformin and needs labs done today Essential hypertension 49502804 I10 stable; Continue propranolo l 40 mg tid and losartan. Hyperlipidemia 71364190 E78.2 needs lab, Continue Simvastati n. Disorder of vitamin D 38 5134671 E56.9 recheck level Chronic ob structive pulmonary disease 03665775 J44.9 Smoking cessation encouraged .cont inhalers- pt not sure which ones she has right now as they were changing so much. Tobacco de pendence syndrome 38256491 F17.290 Continue to cut back on smoking. Morbid obesity 390336573 E66.01 advised low fat, low cholestero l, low carb diet, regular exercise and weight reduction. Lumbago with sciatica 20 8191634 M54.41 M54.42 cont with pain mgmt as well, may have flexeril prn Fibromyalgia 615301996 M 79.7 diagnosed at [place] about 8 years ago, dwp doing yoga or other exercises to help stretch daily; cont duloxetine 60 mg, 30 mg total of 90 mg Lumbar radiculopathy 128 288576 M54.16 was seeing pain mgmt- needs new referral; no more refills of tramadol; ok for lyrica till seen [id number] MD Tal Guardado (Adult Med) [address] [place] [address] 01/24/2019 11:46:28 01/25/2019 08:48:26 Type 2 diabetes mellitus 70730104 E11.9 last a1c was 5.6 in 09/2017, dwp to cont metformin and needs labs done today Essential hypertension 07654328 I10 stable; Continue propranolo l 40 mg tid and losartan. Hyperlipidemia 87533168 E78.2 needs lab, Continue Simvastati n. Disorder of vitamin D 38 7107791 E56.9 recheck level Chronic ob structive pulmonary disease 62357073 J44.9 Smoking cessation encouraged .cont inhalers- pt not sure which ones she has right now as they were changing so much. Tobacco de pendence syndrome 72680003 F17.290 Continue to cut back on smoking. Morbid obesity 183742255 E66.01 advised low fat, low cholestero l, low carb diet, regular exercise and weight reduction. Lumbago with sciatica 20 6180301 M54.41 M54.42 cont with pain mgmt as well, may have flexeril prndwp to call if needing new referral for pain mgmt, was getting injections Fibromyalgia 174801577 M 77.7 diagnosed at [place] several ago, dwp doing yoga or other exercises to help stretch daily; cont duloxetine 60 mg, 30 mg total of 90 mg Lumbar radiculopathy 128 831031 M54.16 was seeing pain mgmt- needs new referral?; no more refills of tramadol; ok for lyrica till seen by pain mgmt Screening for malignant neoplasm of colon 003892742 Z12.11 Stool kit provided with [employer] for use. Anxiety disorder F41.9 June cont prn vistaril until seen by psych [id number] [facility] [address] [place] [address] 04/25/2019 16:01:22 04/29/2019 08:04:02 Type 2 diabetes mellitus 86227398 E11.9 last a1c was 5.6 in 09/2017, dwp to cont metformin and needs labs done today Essential hypertension 12582599 I10 stable; Continue propranolo l 40 mg tid and losartan. Hyperlipidemia 65115255 E78.2 needs lab, Continue Simvastati n. Disorder of vitamin D 38 4215893 E56.9 recheck level Chronic ob structive pulmonary disease 09787005 J44.9 Smoking cessation encouraged .cont inhalers- pt not sure which ones she has right now as they were changing so much. Anxiety disorder F41.9 June cont prn vistaril until seen by psych Tobacco user 303812491 Z 72.0 Smoking cessation encouraged . Lumbar radiculopathy 128 M54.16 was seeing pain mgmt- needs new referral?; no more refills of tramadol; ok for lyrica till seen by pain mgmt Screening for malignant neoplasm of breast 066152156 Z12.39 mammogram order given Health con dition feared but not present [id number] 57356 Z71.1 pt believes she had a stroke when she was arguing with kids a bout 2 months ago and now believes has droopy face on right and limp on left leg; neuro exam wnl dwp stroke is typically unilateral in nature, may be having more back pain; pt feels her stroke was more because she used to go to [employer] at 10 pm to go shopping and her put her on a budget and she is upset [id number] MD Tal Guardado (Adult Med) [address] [place] [address] 08/29/2019 08:20:50 08/30/2019 10:01:10 Type 2 diabetes mellitus 65101084 E11.9 last a1c was 5.8, dwp to cont metformin Essential hypertension 62099349 I10 stable; Continue propranolo l 40 mg tid and losartan. Hyperlipidemia 47773107 E78.2 needs lab, Continue Simvastati n. Chronic ob structive pulmonary disease 52381245 J44.9 Smoking cessation encouraged .cont inhalers- pt not sure which ones she has right now as they were changing so much. Anxiety disorder 7089799 06 F41.9 May cont prn vistaril; Tobacco user 324907140 Z 72.0 Smoking cessation encouraged . Lumbar radiculopathy 128 M54.16 was seeing pain mgmt- needs new referral?; no more refills of tramadol; ok for lyrica till seen by pain mgmt going to [facility], got a shot and goes back next week for second shot Depressive disorder 8158 9004 F32.9 dwp to call doc pizarro to make apt [id number] MD Tal Simon ([employer]ER) [address] [place] [address] 10/14/2019 13:45:25 10/15/2019 07:06:42 Gynecologic examination 42272964 Z01.419 Last pap done 05/06/15 was negative with negative hr-HPV. Pap due. Pap done. Venereal d isease screening 503404424 Z11.3 Telephone visit 2 weeks for results. Screening for malignant neoplasm of breast 015129660 Z12.39 Last 2013. Mother with breast CA Screening for malignant neoplasm of colon 446456530 Z12.11 Needs colonoscop y. Has FH colon CA, breast CA Family his tory of malignant neoplasm of breast in first degree relative 095734848 Z80.3 Mother with both breast and colon CA. Family his tory of cancer of colon 204518706 Z80.0 Mother with both breast and colon CA. Reduced libido 1341061 R 68.82 Male and female sexual response discussed. Pt. will work with to improve sex life. Body mass index 40+ - severely obese 593511868 Z68.41 nutrition and exercise discussed. Cigarette smoker 2747765 7 F17.210 Cessation discussed. Menopausal flushing 1983 37814 N95.1 Inability to give estrogen with smoking due to increased risk of blood clots like a PE, CVA, [place], DVT dwp. If pt. can stop smoking x 6 mo, she could take estrogen, dwp. [id number] MD Tal Simon ([employer]AY[employer]ER) [address] [place] [address] 11/26/2019 09:18:48 11/28/2019 11:49:12 Trichomonal vulvovaginitis 93497101 A59.01 Diagnosis d/w pt. Rx sent to pharmacy. Instructio dayami discussed. Pt. instructed to have her partner(s) tested and treated. No sex until negative RAMAKRISHNA. RTO 3 weeks for RAMAKRISHNA. [id number] MD Tal Guardado (Adult Med) [address] [place] [address] 12/03/2019 08:20:57 12/04/2019 06:39:25 Type 2 diabetes mellitus 19336061 E11.9 last a1c was 5.8, dwp to cont metformin Essential hypertension 21393478 I10 stable; Continue propranolo l 40 mg tid and losartan. Hyperlipidemia 65539399 E78.2 Continue Simvastati n. Chronic ob structive pulmonary disease 06262273 J44.9 Smoking cessation encouraged .cont inhalers-p rn albuterol Anxiety disorder F41.9 June cont prn vistaril; Tobacco user 910045327 Z 72.0 Smoking cessation encouraged . Lumbar radiculopathy 128 M54.16 was seeing pain mgmt- needs new referral?; no more refills of tramadol; ok for lyrica till seen by pain mgmt going to [facility], Depressive disorder 3548 9007 F32.9 cont with psychiatry [id number] MD Tal Guardado (Adult Med) [address] [facility] [address] [place] [address] 03/06/2020 09:09:45 03/10/2020 07:33:26 Type 2 diabetes mellitus 91212140 E11.9 last a1c was 6.2, dwp to cont metformin Essential hypertension 25307657 I10 stable; Continue propranolo l 40 mg tid and losartan. Hyperlipidemia 57873601 E78.2 Continue Simvastati n. Chronic ob structive pulmonary disease 62822057 J44.9 Smoking cessation encouraged .cont inhalers-p rn albuterol Anxiety disorder F41.9 June cont prn vistaril; Tobacco user 037308883 Z 72.0 Smoking cessation encouraged . Lumbar radiculopathy 128 532648 M54.16 was seeing pain mgmt- no more refills of tramadol; ok for lyrica till seen by pain mgmt- going to [facility] Depressive disorder 3548 9007 F32.9 cont with psychiatry Endocrine/ metabolic screening 709498966 Z13.090 [id number] MD Tal Guardado (Adult Med) [address] [place] [address] 04/06/2020 08:51:00 04/07/2020 09:08:02 Chronic obstructive pulmonary disease 74185747 J44.9 Smoking cessation encouraged .cont inhalers-p rn albuterol Acute exac erbation of chronic obstructive pulmonary disease 183713204 J44.1 flare triggered by weather, will start medrol dose pack, pt requests cough pills, also rx nebulizer, advised pt to call if not improving Tardive dyskinesia 92365 9007 G24.01 was seeing neuro [facility] and would like one closer Degenerati on of lumbar intervertebral disc 96210540 M51.36 was seeing pain mgmt, pt requests tylenol ER 650 mg [id number] MD Tal Guardado (Adult Med) [address] [place] [address] 06/03/2020 15:12:10 06/04/2020 08:50:14 Adult health examination 446799448 Z00.01 Encouraged routine [employer], vision, dental exams, well balanced diet. Screening for malignant neoplasm of colon 871053533 Z12.11 Stool kit provided with [employer] for use. Disorder of vitamin D 38 2787704 E56.9 recheck level Essential hypertension 68450192 I10 elevated today, missing mid day dosing; dwp importance of med compliance and risk of adverse cardiac event Continue propranolo l and losartan. will change dosing to both meds to bid dosing with a slight increase to propranolo l as well: losartan 25 mg 2 tablets bid and propranolo l 60 mg bid Fibromyalgia 644559654 M 79.7 diagnosed at [place] several ago, dwp doing yoga or other exercises to help stretch daily; cont duloxetine 60 mg, 30 mg total of 90 mg pt is to see neuro in June and would like to resume celebrex and lyrica prior to that visit so meds can be adjusted when she goes, dwp options and will resums, lyrica at lower dose Hyperlipidemia 08488363 E78.2 Continue Simvastati n. Morbid obesity 984814072 E66.01 advised low fat, low cholestero l, low carb diet, regular exercise and weight reduction. Tobacco de pendence syndrome 33400125 F17.290 Continue to cut back on smoking. Type 2 berta betes mellitus 73725186 E11.9 last a1c was 6.2, today 6.1; dwp to cont metformin Chronic ob structive pulmonary disease 18444984 J44.9 Smoking cessation encouraged cont inhalers-p rn albuterol [id number] MD Tal Guardado (Adult Med) [address] [place] [address] 08/25/2020 15:48:39 08/25/2020 18:49:39 Sore throat 215286622 J02.9 dwp to increase fluids, OTC cold med prn, rest, good handwashin g Diverticul osis of colon 265257230 K57.[address] from ER, increasing pain, dwp needs to follow up with GI or go to ER if pain worsening, justen lcover for bacterial infection with cipro and flagyl Degenerati on of lumbar intervertebral disc 29155334 M51.36 was seeing pain mgmt, but has not been able to go back;cont prn tylenol ER 650 mg, will send smll rx for severe pain only [id number] MD Tal Guardado (Adult Med) [address] [place] [address] 10/27/2020 14:58:17 10/28/2020 10:49:48 Degeneration of lumbar intervertebral disc 96950957 M51.36 was seeing pain mgmt, but has not been able to go back;cont prn tylenol ER 650 mg,will send new referral Essential hypertension 84982610 I10 improved dwp importance of med compliance and risk of adverse cardiac event Continue losartan 25 mg 2 tablets bid and propranolo l 60 mg bid Hyperlipidemia 01411065 E78.2 Continue Simvastati n. Chronic ob structive pulmonary disease 89435921 J44.9 Smoking cessation encouraged cont inhalers-p rn albuterol Morbid obesity 242529365 E66.01 advised low fat, low cholestero l, low carb diet, regular exercise and weight reduction. Type 2 berta betes mellitus 56696109 E11.9 last a1c was 6.1; dwp to cont metformin Tobacco de pendence syndrome 49840531 F17.290 Continue to cut back on smoking. Gastroesop hageal reflux disease without esophagitis 060889394 K21.9 cont ppi, follow up with GI as planned Obesity 048330046 E66.9 advised low fat, low cholestero l diet, regular exercise and weight reduction. Diverticul osis of colon 651682069 K57.[address] from ER, recent colonoscop ydiet changes advised;dw p needs to follow up with GI [id number] MD Tal Guardado (Adult Med) [address] [place] [address] 01/29/2021 14:29:21 02/01/2021 10:44:07 Degeneration of lumbar intervertebral disc 36465199 M51.36 was seeing pain mgmt, but has not been able to go back;cont prn tylenol ER 650 mg,waiting on referral Essential hypertension 96026735 I10 improved with rest dwp importance of med compliance and risk of adverse cardiac event Continue losartan 25 mg 2 tablets bid and propranolo l 60 mg bid Hyperlipidemia 05852021 E78.2 Continue Simvastati n. Chronic ob structive pulmonary disease 39329895 J44.9 Smoking cessation encouraged cont inhalers-p rn albuterol Morbid obesity 984807303 E66.01 advised low fat, low cholestero l, low carb diet, regular exercise and weight reduction. Type 2 berta betes mellitus 41826932 E11.9 last a1c was 5.8; dwp to cont metformin Tobacco de pendence syndrome 40903555 F17.290 Continue to cut back on smoking. 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 [id number] 72794 G56.02 was ready for surgery then covid halted it, needs new referral to ortho [id number] MD Tal Guardado (Adult Med) [address] [place] [address] 05/12/2021 11:22:54 05/13/2021 06:21:44 Psoriasis of scalp 813122231 L40.9 patch to forehead, since last July, has been trying to get it to go away using topicalspr n clobetasol Degenerati on of lumbar intervertebral disc 18411827 M51.36 was seeing pain mgmt, but has not been able to go back;pt states tramadol is no longer helping her, will change to tylenol with codeine until she can see pain mgmtpt also requesting increase to lyricawait ing on referral, pt is willing to do PT in order to get into pain mgmt Essential hypertension 60996245 I10 pt has been taking 300 mg losartan bid on her own, was advised that was incorrect dosing. dwp importance of med compliance and risk of adverse cardiac event Continue losartan 100 mg bid Gastroesop hageal reflux disease without esophagitis 989515568 K21.9 cont ppi, follow up with GI as planned Lumbago with sciatica 20 3299888 M54.41 M54.42 trying to get back into pain mgmtmay have flexeril prn,advise d diclofenac prn,cont lyricadwp to call if needing new referral for pain mgmt, was getting injections Type 2 berta betes mellitus 83572797 E11.9 last a1c was 5.8; dwp to cont metformin Dysuria 00025072 R30.0 urine pos for nitrates, blood and leuk, will send for culture as well as treat with macrobid [id number] [facility] [address] [place] [address] 03/19/2024 13:03:25 03/22/2024 16:31:12 Positive screening for depression on PHQ-9 (Patient Health Questionnaire 9) 1122207141 56830 Z13.31 - Referred to at [facility] by PCP Routine gy necologic examination done 7848016686 9101 Z01.419 - Reviewed risks for infection and cancer; ordered screening tests as appropriat e- Patient to follow up with PCP for routine cardiovasc ular disease screening- UTD on cervical cancer screening until 09/2024 Screening for malignant neoplasm of breast [id number] Z12.31 - Mammo ordered by PCP Venereal d isease screening [id number] Z11.3 - STI screening including serum testing per patient request Administra tion of diphtheria, pertussis, and tetanus vaccine [id number] Z23 Administra tion of pneumococcal vaccine [id number] Z23 Health Concerns Section Related Observation LastModified by Organization Detai ls LastModified Time None Recorded Concern Status LastModified by Organization Details LastModified Time None Recorded Advance Directives Directive N: Payers Encounter Date Sequence Insurance Name Policy Number Policy Poole Covered Member ID Poole Member ID Guarantor Name 08/25/2020 1 [facility] - DOS PRIOR TO 2020 (MEDICAID REPLACEMENT - HMO) Dipika Tran [id number] Dipika Tran 10/27/2020 1 [facility] - DOS ON OR AFTER 20 (MEDICAID REPLACEMENT - HMO) Dipika Tran [id number] Dipika Tran 01/29/2021 1 [facility] (MEDICAID HMO) [id number] Dipika Tran [id number] Dipika Tran 05/12/2021 1 [facility] (MEDICAID HMO) [id number] Dipika Tran [id number] Dipika Tran 03/19/2024 1 [facility] (MEDICAID HMO) [id number] Dipika Tran [id number] Dipika Tran Notes Date Note Type Note Provider Name and Address Organization Details Recorded Time 1 text/html has been in pain for the last month. Pt claim it large intestine. would like to be referred to have colonoscopy Carla Harrell APN, FNP-C Attn: Accounting[address] [place], [address], [facility] 08/25/2020 16:29:13 1 text/html Throat PainReported bypatient.Location:level of pain Quality:aching Severity:moderate Duration:started 1 week(s) ago Onset/Timing:constant Alleviating Factors:cold medicine Aggravating Factors:smoking Associated Symptoms:throat tickle/itch Diet History:caffeine; sodaNotes:had a fever for a day but broke last night.gargled peroxide, no sinus drainage Carla Harrell APN, FNP-C Attn: Accounting,[address] [facility], [place], [address], [facility] 08/25/2020 16:29:13 1 text/html COPDReported [...] for [facility] if possible Carla Harrell APN, FUEL CELL SYSTEMS ENGINEER-C Attn: Accounting[address] [place], [address], [place] [facility] 10/27/2020 23:19:59 1 text/html COPDReported [...] surgery. want flu shot Carla Harrell APN, FUEL CELL SYSTEMS ENGINEER-C Attn: Accounting[address] [facility], [place], [address], [place] [facility] 01/29/2021 17:42:32 2 text/html COPDReported bypatient.Onset/Timing:in termittent; [...] they are working on Carla YEN Harrell, FUEL CELL SYSTEMS ENGINEER-C Attn: Accounting,[address] [facility], [place], [address], [facility] 05/12/2021 14:19:55 5 text/html [...] ppd. JOY PICKARD MD Attn: Accounting,[address] [facility], [place], [address], [facility] 03/19/2024 15:25:14 OBGyn Episode Ob Episode Information Episode Created Date Number of Fetuses Patient Bloodtype Patient rh Status Prepregnancy Weight lbs Domestic Partner Domestic Partner Phone Father Name Bicycle Messenger Status 05/06/19 16 1 CLOSED Fetus Data First Name Last Name Admitted to NICU Weight (g) Sex Living Outcome Pediatric Complications Fetus ID Race Codes Race Delivery Type 3628.73 6 M Full Term 52364 Brendan Calculation Initial Brendan Date Initial Exam [...] Domestic Partner Domestic Partner Phone Father Name Bicycle Messenger Status 05/06/19 16 1 CLOSED Fetus Data First Name Last Name Admitted to NICU Weight (g) Sex Living Outcome Pediatric Complications Fetus ID Race Codes Race Delivery Type , Induced 22853 Brendan Calculation Initial Brendan Date Initial Exam [...] Domestic Partner Domestic Partner Phone Father Name Bicycle Messenger Status 05/06/19 16 1 CLOSED Fetus Data First Name Last Name Admitted to NICU Weight (g) Sex Living Outcome Pediatric Complications Fetus ID Race Codes Race Delivery Type , Induced 12187 Brendan Calculation Initial Brendan Date Initial Exam [...] Domestic Partner Domestic Partner Phone Father Name Bicycle Messenger Status 05/06/19 16 1 CLOSED Fetus Data First Name Last Name Admitted to NICU Weight (g) Sex Living Outcome Pediatric Complications Fetus ID Race Codes Race Delivery Type 3175.14 4 M Full Term 66766 Brendan Calculation Initial Brendan Date Initial Exam [...] Domestic Partner Domestic Partner Phone Father Name Bicycle Messenger Status 05/06/19 16 1 CLOSED Fetus Data First Name Last Name Admitted to NICU Weight (g) Sex Living Outcome Pediatric Complications Fetus ID Race Codes Race Delivery Type 3175.14 4 F Full Term 29670 Brendan Calculation Initial Brendan Date Initial Exam [...] Domestic Partner Domestic Partner Phone Father Name Bicycle Messenger Status 05/06/19 16 1 CLOSED Fetus Data First Name Last Name Admitted to NICU Weight (g) Sex Living Outcome Pediatric Complications Fetus ID Race Codes Race Delivery Type 3628.73 6 F Full Term 89070 Brendan Calculation Initial Brendan Date Initial Exam [...] Domestic Partner Domestic Partner Phone Father Name Bicycle Messenger Status 05/06/19 16 1 CLOSED Fetus Data First Name Last Name Admitted to NICU Weight (g) Sex Living Outcome Pediatric Complications Fetus ID Race Codes Race Delivery Type Ectopic 94802 Brendan Calculation Initial Brendan Date Initial Exam [...] Domestic Partner Domestic Partner Phone Father Name Bicycle Messenger Status 05/06/19 16 1 CLOSED Fetus Data First Name Last Name Admitted to NICU Weight (g) Sex Living Outcome Pediatric Complications Fetus ID Race Codes Race Delivery Type 3175.14 4 F Full Term 22322 Brendan Calculation Initial Brendan Date Initial Exam [...] Domestic Partner Domestic Partner Phone Father Name Bicycle Messenger Status 05/06/19 16 1 CLOSED Fetus Data First Name Last Name Admitted to NICU Weight (g) Sex Living Outcome Pediatric Complications Fetus ID Race Codes Race Delivery Type , Spontane ous 38869 Brendan Calculation Initial Brendan Date Initial Exam [...] Domestic Partner Domestic Partner Phone Father Name Bicycle Messenger Status 05/06/19 16 1 CLOSED Fetus Data First Name Last Name Admitted to NICU Weight (g) Sex Living Outcome Pediatric Complications Fetus ID Race Codes Race Delivery Type , Induced 10389 Brendan Calculation Initial Brendan Date Initial Exam [...]
--- OUTSIDE RECORDS SUMMARY | 2024-06-23 22:49 | XMS_ITS | Clinical Summary ---
Author Organization [facility] [employer] Address [address] [place] [address] Care Team Providers Care Research And Evaluation Manager Name Role Phone Meme Samuel RN Unavailable Unavailable Omar Delarosa MD, [facility] Primary Care Prov ider Adelina Trinidad DO Unavailable Source Comments [facility],non-owned Affiliates and Associated Physician Practices is amultiple site organization consisting of ambulatory clinics and hospital sitesin [place], [place], [place] and [place]. This disclosure is being madepursuant to the Care Everywhere program and may not contain all information available regarding this patient. Last updated 17.[facility] [employer] Allergies Active Allergy Reactions Criticality Noted Date [...] naloxone HCl (Narcan) 4 MG/0.1ML nasal spray [place] 1 (one) spray into the nose as [...] Oral DAILY, Reported on 08/25/2022 HYDROcodone-acetam inophen ([place]) 10-325 MG tabletIndications: Chronic pain disorder Take [...] OR BEDTIME 01/28/20 23 Active HYDROcodone-acetam inophen ([place]) 5-325 MG tablet Take 1 (one) tablet [...] Sex Assigned at Female 01/11/2022 4:28 AM TIRE CARE MANAGER Legal Sex Female 5:17 PM TIRE CARE MANAGER Gender Identity Female 01/11/2022 4:28 AM TIRE CARE MANAGER Sexual Orientation Straight 01/11/2022 4: 28 AM TIRE CARE MANAGER Last Filed Vital Signs Vital Sign Reading [...] ENDOSCOPY, COLON, DIAGNOSTIC Routine 12/31/2021 10:08 AM TIRE CARE MANAGER Abdominal pain, LLQ (left lower quadrant) Constipation, unspecified constipation type HEMOGLOBIN A1C Routine 03/09/2017 6:08 PM TIRE CARE MANAGER from Last 3 Months or Most Recently [...] - 34 U/L 11/14/2022 5:30 PM CDT -[facility] Protein Total 7.1 6.4 - 8.3 gm/dL 11/14/2022 5:30 PM CDT -[facility] Albumin 3.8 3.4 - 5.0 gm/dL 11/14/2022 5:30 PM CDT -[facility] Bilirubin Total 0.4 0.2 - 1.2 mg/dL 11/14/2022 5:30 PM CDT -[facility] eGFR by CKD-EPI 84(L) >=90 mL/min/1.7 3 m2 11/14/2022 5:30 PM CDT -[facility] Blood BLOOD SPECIMEN / Unknown Lab Venipuncture / Unknown 11/14/2022 4:59 PM CDT 11/14/2022 5:08 PM CDT us Adelina Trinidad DO LAB - CHEMISTRY ORDERABLES Final Result [facility] [address] [place] [address] * (ABNORMAL) PROTEIN CREATININE RATIO URINE RANDOM PNL (11/14/2022 4:59 PM CDT) Protein Urine 22.7(H) <11.9 mg/dL 11/14/2022 6:12 PM CDT [facility] Creatinine Urine 310.77 mg/dL 11/14/2022 6:12 PM CDT [facility] Protein/Creatin ine Ratio Urine 0.07 11/14/2022 6:12 PM CDT -[facility] Urine URINE SPECIMEN OBTAINED BY CLEAN CATCH PROCEDURE / Unknown Collection / Unknown 11/14/2022 4:59 PM CDT 11/14/2022 5:53 PM CDT Adelinagail Trinidad DO LAB - URINE CHEMISTRY ORDERABLES Final Result [facility] [address] [place] [address] * HEPATITIS SCREEN ACUTE ([facility]) (07/06/2022 11:34 [...] Resulting Agency Comment [facility] [address] [facility] [phone] Adelina Vivi DO LAB - CHEMISTRY ORDERABLES Final Result Performing Organization Address City/[facility]/ZIP Co de Phone Number [facility] INSURANCE BILL [address] [place] [address] * ENDOSCOPY, COLON, DIAGNOSTIC (12/31/2021 10:08 AM TIRE CARE MANAGER) Report Endoscopy POC _ Patient Name: Dipika [...] for surveillance. Procedure Code(s): --- Professional --- 72476, Colonoscopy, flexible; with removal of tumor(s), polyp(s), or other lesion(s) by snare technique --- Technical --- 03409, Colonoscopy, flexible; with removal of tumor(s), polyp(s), or other lesion(s) by snare technique Diagnosis Code(s): --- Professional --- K64.4, Residual hemorrhoidal skin tags K63.5, Polyp of colon R10.12, Left upper quadrant pain --- Technical --- K64.4, Residual hemorrhoidal skin tags K63.5, Polyp of colon R10.12, Left upper quadrant pain CPT copyright 2019 [employer]. All rights reserved. The codes documented in this report are preliminary and upon technology risk intern review may be revised to meet current compliance requirements. Dr. Alivia Kline MD Malcom Kline MD 12/31/2021 10:36:33 AM This report has been signed electronically. Number of Addenda: 0 Note Initiated On: 12/31/2021 10:08 AM Procedure Date: 12/31/2021 10:08:52 AM Scope Withdrawal Time: 0 hours 9 minutes 30 seconds [facility] 12/31/2021 10:0 8 AM TIRE CARE MANAGER Malcom Kline MD GI PROCEDURE ORDERABLES Edited Result - Final Performing Organization Address City/[facility]/ZIP Co de Phone Number [facility] * HEMOGLOBIN A1C (03/09/2017 6:08 PM TIRE CARE MANAGER) Hemoglobin A1c 5.9 4.4 - 6.3 % [facility] [address] [facility] [facility] Estimated Average Glucose 123 mg/dL [facility] Comment: HbA1c Interpretation: Treatment target values recommended by ADA and other clinical organizations should be used to evaluate metabolic control in patients. Treatment Target Values: Normal : < 5.7% Pre-diabetes: 5.7-6.4% Diabetes: Equal to or greater than 6.5% Reference: [place] [employer] Standards of Care in Diabetes -2014 In patients 70 years and older consider HbA1c target range of 7.0-7.5% Reference: Diabetes Mellitus in Older People: Position Statement on behalf of the International Association of Gerontology and Geriatrics (IAGG), the Diabetes Working Green Party for Older People (EDWPOP), and the International Task Force of Experts in Diabetes. Kofi Marie, et al. J [place] [employer]. 2012 Test results diagnostic [...] BLOOD SPECIMEN / Unknown 03/09/2017 6:08 PM TIRE CARE MANAGER 03/09/2017 6:26 PM TIRE CARE MANAGER us Kenyon Panchal MD LAB - CHEMISTRY ORDERABLES Fin al Result [address] [phone] from Last 3 Months or Most Recently Relevant to Health Maintenance Insurance [facility] SELF PAY NO INSURANCE Member Subscriber Plan / Payer (Ef fective for All Dates) Name:Dipika Llanes Member ID:Not on file Relation to Subscriber:Not on file Name:DIPIKA LLANES Subscriber ID:Not on file (Home) Address: [facility] [place] [address] Payer ID:Not on file Group ID:Not on file Type:Self Pay Address: [place], [place] Care Teams Research And Evaluation Manager Relationship Specialty [place] [address] [place] [address] PCP - General Family Medicine 02/09/22 Meme Samuel, RN Registered Nurse 02/06/17 Adelina Trinidad DO [address] [facility] [address] [place] [id number] Rheumatology 07/07/22
--- OUTSIDE RECORDS SUMMARY | 2024-06-23 22:49 | XMS_ITS ---
Author Organization [facility] Address [address] [place] [address] Care Team Providers Care Repair Armature Winder Name Role Phone Bibi Lopez Primary Care Provider REASON FOR VISIT follow-up Social History Sex Assigned At : Social History Observation Description Sex Assigned At Female Encounters Encounter Location Date Provider Diagnosis [facility] [address], [place] [address] 05/08/2024 Bibi Lopez Plan Of Treatment Next Appt Details Provider Name:Bibi gordon, 07/24/2024 11:20:00 AM, [address] [place], [address], Progress Notes * Dipika TRANDOB:[birth year] (54 yo F)Acc No.[id number]:05/08/2024 UNLOCKED PROGRESS NOTE Patient: Dipika COVARRUBIAS Provider: TOMÁS Fernández :1970 A ge:54 Y S ex:Female Date:05/08/2024 Address:[facility] Subjective: * Chief Complaints: * 1 . Follow-up. * Medical History: Objective: * Vitals: Assessment: Plan: * Treatment: * * Electronic signature of Ebony Lopez on 06/23/2024 at 10:48 PM CDT Sign off status: Pending * Provider: TOMÁS Fernández Date: 05/08/2024 Generated for Errol choi/[place]/eTransmitting on: 0 06/23/2024 10:48 PM CDT
[2024-06-23 23:19] VITALS: BP 139/97; PULSE 111; RESP 16; O2SAT 97
--- NOTE | 2024-06-23 23:21 | ED.FEVER ---
HPI - Fever General Chief Complaint: Fever <MEHRDAD Solomon Filed: 06/24/24 02:23> Stated Complaint: post op fever, hand swelling <MEHRDAD Solomon Filed: 06/24/24 02:23> Time Seen by Provider: 06/23/24 22:55 <MEHRDAD Solomon Last Filed: 06/24/24 02:23> Source: patient and old records reviewed <MEHRDAD Solomon Filed: 06/24/24 02:23> Mode of arrival: ambulatory <MEHRDAD Solomon Filed: 06/24/24 02:23> Limitations: no limitations <MEHRDAD Solomon Filed: 06/24/24 02:23> History of Present Illness HPI Narrative: Patient is a 54-year-old female who presents the ED with report of wound to her right wrist. Patient underwent excision right carpal tunnel scar, external and internal median neurolysis, hypothenar fat flap and adjacent tissue transfer with Dr. Steiner on 05/02. She reports she has had issues with healing and infection of the wrist. She has been seen in Dr. Steiner's office and in the ED here for the symptoms. She has been on a course of Bactrim and clindamycin. She reports she took a bath today and her wrist got wet, which she was told to avoid. She has since developed increased swelling in hand and around incision site, purulent drainage from the incision site, streaking redness up her arm. She also reports fevers at home, diaphoresis, chills. Took Tylenol earlier today. Denies numbness. <MEHRDAD Solomon Last Filed: 06/24/24 02:23> Related Data Home Medications: Home Medications ?Medication ?Instructions ?Recorded ?Confirmed ?Last Taken ?Type multivitamin 1 tablet PO DAILY 08/22/23 05/29/24 Unknown History albuterol sulfate 90 mcg/actuation 1 puff inhalation QID PRN 04/22/24 05/29/24 Unknown History aerosol inhaler shortness of breath or wheezing cholecalciferol (vitamin D3) 25 25 mcg PO DAILY 04/22/24 05/29/24 Unknown History mcg (1,000 unit) capsule (Vitamin D3) cyclobenzaprine 10 mg tablet 10 mg PO TID PRN muscle spasm 04/22/24 05/29/24 Unknown History divalproex 500 mg tablet,delayed 500 mg PO DIRECTED 04/22/24 05/29/24 Unknown History release duloxetine 60 mg capsule,delayed 60 mg PO DAILY 04/22/24 05/29/24 Unknown History release liraglutide 0.6 mg/0.1 mL (18 mg/3 0.6 mg subcut DIRECTED 04/22/24 05/29/24 Unknown History mL) subcutaneous pen injector meloxicam 7.5 mg tablet 7.5 mg PO BID PRN pain (scale 04/22/24 05/29/24 Unknown History score 4-6) <Criss Prakash PA-C - Last Filed: 06/24/24 02:23> Allergies/Adverse Reactions: Allergies Allergy/AdvReac Type Severity Reaction Status Date / Time No Known Allergies Allergy Verified 06/18/24 13:33 <Criss Prakash PA-C - Last Filed: 06/24/24 02:23> Review of Systems Review of Systems: All systems reviewed & are unremarkable except as noted in HPI. <Criss Prakash PA-C - Last Filed: 06/24/24 02:23> All systems reviewed & are unremarkable except as noted in HPI and below <Criss Prakash PA-C - Last Filed: 06/24/24 02:23> FORMERLY [facility] Past Medical History Medical History: Medical History Smoking Thrush Preoperative clearance Tardive dyskinesia CTS (carpal tunnel syndrome) PTSD (post-traumatic stress disorder) Bipolar disorder Fibromyalgia Anxiety Peripheral neuropathic pain Psychiatric diagnosis <Criss Prakash PA-C - Last Filed: 06/24/24 02:23> Surgical History Surgical History: Surgical History H/O hand surgery S/P total hip arthroplasty <Criss Prakash PA-C - Last Filed: 06/24/24 02:23> Family History Family History: Family History Unknown Hypertension Depression Heart disease Diabetes mellitus Cerebrovascular accident Neuropathy Arthritis Other Peripheral neuropathic pain <Criss Prakash PA-C - Last Filed: 06/24/24 02:23> Social History Social History: Social History Smoking packs per day: 0.25 Smoking cigarettes per day: 5.0 Years smoked: 20 Smoking pack-years: 5.00 Smoking status: Current every day smoker Tobacco type: cigarettes Second hand tobacco smoke exposure: Yes Smoking end date: 08/04/23 Alcohol intake: former Substance use: current Substance use type: other Other substance usage details: Pt reports CBD use Last use: 09/04/23 Do You Feel Safe in your Home?: Yes Lack of Transportation: No Lack of Food: Never True Current Housing: Decline to Answer Concerned About Future Housing: Decline to Answer Difficulty Paying Gas/Electric Bills: Decline to Answer Difficulty Paying for Meds: Decline to Answer Currently Unemployed: Decline to Answer Education: Decline to Answer Difficulty w/ Childcare or Family Care: Decline to Answer Living arrangements: with family Additional living arrangements comments: DAUGHTER Occupation/Education: unemployed Gender identity (if verbalized by the patient): Female Spiritual care concerns: No <Criss Prakash PA-C - Last Filed: 06/24/24 02:23> Exam Narrative: GENERAL: Uncomfortable appearing, obese with BMI of 33.9, non-toxic, in mild acute distress. HEAD: Normocephalic, atraumatic. RESPIRATORY: Airway patent, respirations nonlabored. Clear to auscultation bilaterally, no rales, rhonchi, wheezing. CARDIOVASCULAR: Regular rate and rhythm without murmurs, rubs, or gallops. Radial pulses strong and easily palpable. MUSCULOSKELETAL: Limited ROM of R wrist flexion/extension d/t pain and swelling. Limited ROM of R 3-5th digits due to pain and swelling, pain with active and passive ROM. Diffuse swelling of R fingers and dorsal hand. Diffuse erythema of hand with some lymphangitic streaking extending into volar and dorsal forearm, approx midway. Vertical midline incision to volar wrist with induration, swelling, TTP, small area of dehiscence along incision with dried purulent material. Sensation is intact throughout hand and extremity. Capillary refill intact. SKIN: Warm, dry, normal color. NEURO: A&O X3. Speech clear. No ataxic movements. PSYCHIATRIC: Appropriate mood and affect. Normal interaction. <Criss Prakash PA-C - Last Filed: 06/24/24 02:23> Course IT DESKTOP SUPPORT SPECIALIST/PA Physician Supervision For this patient encounter, I reviewed the IT DESKTOP SUPPORT SPECIALIST or PA documentation, treatment plan, and medical decision making; and I had [id number] time with this patient. <Kike Cash MD - Last Filed: 06/24/24 03:22> Vital Signs Vital signs: Vital Signs Temperature 98.7 F 06/23/24 22:47 Pulse Rate 116 H 06/23/24 22:47 Respiratory Rate 22 H 06/23/24 22:47 Blood Pressure 151/86 H 06/23/24 22:47 Pulse Oximetry 98 06/23/24 22:47 Temperature 98.1 F 06/24/24 01:41 Pulse Rate 102 H 06/24/24 01:41 Respiratory Rate 18 06/24/24 01:41 Blood Pressure 138/87 06/24/24 01:41 Pulse Oximetry 98 06/24/24 01:41 <MEHRDAD Solomon Last Filed: 06/24/24 02:23> Vital Signs Temperature 98.7 F 06/23/24 22:47 Pulse Rate 116 H 06/23/24 22:47 Respiratory Rate 22 H 06/23/24 22:47 Blood Pressure 151/86 H 06/23/24 22:47 Pulse Oximetry 98 06/23/24 22:47 Temperature 98.1 F 06/24/24 01:41 Pulse Rate 102 H 06/24/24 01:41 Respiratory Rate 18 06/24/24 01:41 Blood Pressure 138/87 06/24/24 01:41 Pulse Oximetry 98 06/24/24 01:41 <Kike Cash MD - Last Filed: 06/24/24 03:22> MDM - Fever MDM Narrative Medical decision making narrative: Patient presented to ED with wound/infection to right wrist. History of surgery on 05/[address] Steiner for previous carpal tunnel release scar revision. Now reporting increased swelling/pain/drainage from hand/wound, fevers. Patient tachycardic and febrile upon arrival with ED. Fluids, pain medication, Tylenol initiated. CBC with white blood cell count of 12.3. CMP unremarkable. Lactic 1.3. Inflammatory markers are notably elevated. CRP 28.4. ESR 97. Wound and blood cultures obtained. Patient had procedure performed by Dr. Steiner. He is not on-call tonight, however I was able to speak to him on the phone. Discussed case, agrees w/ plan for iv abx, recommended broad spectrum- Vanc/zosyn, volar splint for immobilization, elevate arm, will consult tomorrow. Discussed case with Gayle BOJORQUEZ hospitalist, accepted patient for admission. I did obtain CT of the wrist which is showing severe flexor tenosynovitis throughout the wrist, involvement at the level for carpal tunnel, extending into the fingers. Updated hospitalist of this. Order placed to notify Dr. Steiner of CT results first thing in the morning. Abx are ongoing. Patient is in agreement with plan and need for admission. She is meeting sepsis criteria. <Criss Prakash PA-C - Last Filed: 06/24/24 02:23> Medical Records Attestation: I reviewed the patient's medical records. <Criss Prakash PA-C - Last Filed: 06/24/24 02:23> Lab Data Attestation: I reviewed the patient's lab results. <Criss Prakash PA-C - Last Filed: 06/24/24 02:23> Result diagrams: 06/24/24 00:22 06/24/24 00:22 <MEHRDAD Solomon Last Filed: 06/24/24 02:23> Labs: Lab Results 06/24/24 06/24/24 Range/Units 00:22 00:49 WBC 12.3 H (4.5-10.0) K/mm3 RBC 4.55 (4.2-5.4) M/mm3 Hgb 12.9 (12.0-15.0) g/dL Hct 39.8 (37.0-47.0) % MCV 87.5 (80-100) fl MCH 28.4 (26-34) pg MCHC 32.4 (32-36) g/dl RDW 12.9 (11.5-14.5) % Plt Count 268 (150-375) k/mm3 MPV 10.7 H (7.4-10.4) fl Immature Gran % (Auto) 0.4 (0-0.5) % Neut % (Auto) 64.7 (45.5-73.1) % Lymph % (Auto) 23.9 (18.3-44.2) % Bullock % (Auto) 10.5 H (2.6-8.5) % Eos % (Auto) 0.3 (0-4.4) % Baso % (Auto) 0.2 (0.2-1.2) % Lymph # (Auto) 2.95 (0.9-3.2) K/mm3 Bullock # (Auto) 1.3 H (0.1-0.6) K/mm3 Eos # (Auto) 0.0 (0-0.3) K/mm3 Baso # (Auto) 0.0 (0.0-0.1) K/mm3 Abs Immat Gran (auto) 0.05 H (0.00-0.031) K/mm3 Absolute Neuts (auto) 8.0 H (1.3-6.7) K/mm3 Absolute Nucleated RBC 0.000 (0.0-0.012) K/mm3 Nucleated RBC % 0.0 (0.0-0.2) % ESR 97 H (0-20) mm/hr PT 14.7 (11.1-14.7) Seconds INR 1.1 APTT 42.4 H (22.3-36.8) Seconds Sodium 136 L (137-145) mmol/L Potassium 3.3 L (3.4-5.0) mmol/L Chloride 99 (98-107) mmol/L Carbon Dioxide 27 (22-30) mmol/L Anion Gap 10 (4-12) mmol/L BUN 12 (7-17) mg/dL Creatinine 0.73 (0.7-1.0) mg/dL Estim Creat Clear Calc 84 ml/min Estimated GFR > 60 (59 - ) Glucose 92 (65-110) mg/dL POC Capillary Glucose 94 (65-105) mg/dl Lactic Acid 1.3 (0.7-2.0) mmol/L Calcium 9.1 (8.4-10.2) mg/dL Total Bilirubin 0.7 (0.2-1.3) mg/dL AST 18 (14-36) U/L ALT 16 (6-35) U/L Alkaline Phosphatase 102 (38-126) U/L C-Reactive Protein 28.4 H (<1.0) mg/dL Total Protein 8.0 (6.3-8.2) g/dL Albumin 4.3 (3.5-5.1) g/dL <Criss Prakash PA-C - Last Filed: 06/24/24 02:23> Lab Results 06/24/24 06/24/24 Range/Units 00:22 00:49 WBC 12.3 H (4.5-10.0) K/mm3 RBC 4.55 (4.2-5.4) M/mm3 Hgb 12.9 (12.0-15.0) g/dL Hct 39.8 (37.0-47.0) % MCV 87.5 (80-100) fl MCH 28.4 (26-34) pg MCHC 32.4 (32-36) g/dl RDW 12.9 (11.5-14.5) % Plt Count 268 (150-375) k/mm3 MPV 10.7 H (7.4-10.4) fl Immature Gran % (Auto) 0.4 (0-0.5) % Neut % (Auto) 64.7 (45.5-73.1) % Lymph % (Auto) 23.9 (18.3-44.2) % Bullock % (Auto) 10.5 H (2.6-8.5) % Eos % (Auto) 0.3 (0-4.4) % Baso % (Auto) 0.2 (0.2-1.2) % Lymph # (Auto) 2.95 (0.9-3.2) K/mm3 Bullock # (Auto) 1.3 H (0.1-0.6) K/mm3 Eos # (Auto) 0.0 (0-0.3) K/mm3 Baso # (Auto) 0.0 (0.0-0.1) K/mm3 Abs Immat Gran (auto) 0.05 H (0.00-0.031) K/mm3 Absolute Neuts (auto) 8.0 H (1.3-6.7) K/mm3 Absolute Nucleated RBC 0.000 (0.0-0.012) K/mm3 Nucleated RBC % 0.0 (0.0-0.2) % ESR 97 H (0-20) mm/hr PT 14.7 (11.1-14.7) Seconds INR 1.1 APTT 42.4 H (22.3-36.8) Seconds Sodium 136 L (137-145) mmol/L Potassium 3.3 L (3.4-5.0) mmol/L Chloride 99 (98-107) mmol/L Carbon Dioxide 27 (22-30) mmol/L Anion Gap 10 (4-12) mmol/L BUN 12 (7-17) mg/dL Creatinine 0.73 (0.7-1.0) mg/dL Estim Creat Clear Calc 84 ml/min Estimated GFR > 60 (59 - ) Glucose 92 (65-110) mg/dL POC Capillary Glucose 94 (65-105) mg/dl Lactic Acid 1.3 (0.7-2.0) mmol/L Calcium 9.1 (8.4-10.2) mg/dL Total Bilirubin 0.7 (0.2-1.3) mg/dL AST 18 (14-36) U/L ALT 16 (6-35) U/L Alkaline Phosphatase 102 (38-126) U/L C-Reactive Protein 28.4 H (<1.0) mg/dL Total Protein 8.0 (6.3-8.2) g/dL Albumin 4.3 (3.5-5.1) g/dL <Kike Cash MD - Last Filed: 06/24/24 03:22> Imaging Data Attestation: I personally reviewed and interpreted this imaging study as follows: <Criss Prakash PA-C - Last Filed: 06/24/24 02:23> Radiologist's impression: STAT RAD CT R wrist: Severe flexor tenosynovitis throughout the wrist, measuring approximately 9.7 cm proximal-distal. Severe involvement at the level of the carpal tunnel as well. Recommend hand surgical evaluation. Severe tenosynovitis extends into the fingers, preferentially and fourth ray. <MEHRDAD Solomon Last Filed: 06/24/24 02:23> Discharge Plan Discharge Clinical Impression: History of carpal tunnel surgery of right wrist, Cellulitis of right wrist, Tenosynovitis of wrist flexor, Flexor tenosynovitis of finger Sepsis Qualifiers: Sepsis type: sepsis due to unspecified organism Sepsis acute organ dysfunction status: unspecified Qualified Code(s): A41.9 - Sepsis, unspecified organism <MEHRDAD Solomon Last Filed: 06/24/24 02:23> Patient Disposition: Still a Patient <MEHRDAD Solomon Last Filed: 06/24/24 02:23> Condition: Serious <MEHRDAD Solomon Last Filed: 06/24/24 02:23>
[2024-06-23 23:42] VITALS: TEMP 37.9
[2024-06-23] MEDS: SODIUM CHLORIDE 0.9% IV 1,000 ML 999 ML IV CONT (23:44)
[2024-06-23] MEDS: ACETAMINOPHEN 500 MG TABLET 1000 MG PO (23:45)
--- OUTSIDE RECORDS SUMMARY | 2024-06-23 23:45 | XMS_ITS | Clinical Summary ---
Author Organization [facility] Address [address] [place] [address] Care Team Providers Care Cremator Name Role Phone Unknown, Notinfile Primary Care [...] (10/20/2020): Added automatically from request for surgery [id number] Back pain with left-sided sciatica 10/19/2020 Diverticulosis 09/13/2020 Overview (09/13/2020): Added automatically from request for surgery [id number] Family history of colon cancer in mother 021 Overview (09/13/2020): Added automatically from request for surgery [id number] Hx of colonic polyps 09/13/2020 Overview (09/13/2020): Added automatically from request for surgery [id number] Diverticulosis of colon 09/11/2020 Assessment & Plan (09/11/2020 1:48 PM CDT): Colonoscopy and then recap in office Carpal tunnel syndrome of left wrist 06/30/2020 Tardive dyskinesia 04/28/2020 Complex dental caries 11/28/2019 Overview (11/28/2019): Added automatically from request for surgery [id number] Essential hypertension, malignant 11/28/2019 Overview (11/28/2019): Added automatically from request for surgery [id number] Breath, shortness 11/28/2019 Overview (11/28/2019): Added automatically from request for surgery [id number] Severe diabetes mellitus 11/28/2019 Overview (11/28/2019): Added automatically from request for surgery [id number] Posttraumatic stress disorder 11/28/2019 Overview (11/28/2019): Added automatically from request for surgery [id number] Anxiety 11/28/2019 Overview (11/28/2019): Added automatically from request for surgery [id number] Infection following a procedure, subsequent enco unter [...] on file Legal Sex Female 1:20 AM GROUND W[employer] Gender Identity Not on file Sexual Orientation [...] LAB BLOOD ORDERABLES Final Result GENEVIEVE FONSECA [place]) 1 [facility] Department [place] [address] * Screening Mammogram Bilateral W [...] 11:00 AM CDT) Albumin Ur 30.7 mg/L [facility] AM H ([place]) Comment: Interpretive Data No reference range established. Current interpretive data was last revised 2018. Testing performed by: [facility], [address] [place] [address]., [id number] Creatinine Ur 182.5 mg/dL GENEVIEVE FONSECA ([place]) Comment: Interpretive Data No reference range established. Current interpretive data was last revised 2018. Testing performed by: [facility], [address] [place] [address]., [id number] Albumin Creatinine Ratio, Ur 17 1 - 29 mg/g GENEVIEVE FONSECA ([place]) Comment:Testing performed by : [facility], [address] [place] [address]., [id number] Urine 11/17/2020 11:0 0 AM CDT 11/17/2020 2:34 PM CDT Carla Harrell NP LAB URINE ORDERABLES Final R esult GENEVIEVE FONSECA ([place]) 1 [facility] Department [place] [address] * (ABNORMAL) Hemoglobin A1c (11/17/2020 10:48 AM [...] and children were not included. (Diabetes Care 31:1794-1915, 2008). The eAG is not equivalent to a fasting glucose. Blood 11/17/2020 10:4 8 AM CDT 11/17/2020 11:20 AM CDT Carla Kellie Harrell IT PROJECT MANAGER LAB BLOOD ORDERABLES Final R esult GENEVIEVE FONSE[facility] ([place]) 1 [facility] Department [place] [address] * (ABNORMAL) Lipid panel (11/17/2020 10:48 AM [...] CDT 11/17/2020 11:20 AM CDT Carla Harrell IT PROJECT MANAGER LAB BLOOD ORDERABLES Final R esult GENEVIEVE FONSECA ([place]) 1 [facility] Department [place] [address] * COLONOSCOPY (10/22/2020 10:34 AM CDT) Anatomical Region Laterality Modality Other Narrative Procedure Note Yunior Barber MD - 10/22/2020 10:34 AM CDT [facility] Patient Name: Dipika Tran Procedure Date: 10/22/2020 10:34 AM Date of : 1970 Admit Type: Outpatient Age: 50 Gender: Female Attending MD: Yunior Barber M.D. Room: [facility] 2 Note Status: Finalized Patient [...] scope was passed under direct vision. TheColonoscope [id number] was introduced through the anus and advanced [...] 10:34 AM Procedure Code(s): --- Professional --- 18893, Colonoscopy, flexible; diagnostic, including collection of specimen(s) by brushing or washing, when performed (separateprocedure) Diagnosis Code(s): --- Professional --- K57.30, Diverticulosis of large intestine without perforation orabscess without bleeding K64.9, Unspecified hemorrhoids CPT copyright 2019 [employer]. All rights reserved. The codes documented in this report are preliminary and upon independent film maker reviewmay be revised to meet current compliance requirements. Recognized by the [employer] for promoting quality in endoscopy Yunior Barber MD ENDOSCOPY PROCEDURES Final Re sult from Last 3 Months or Most Recently Relevant to Health Maintenance Insurance [facility] Advance Directives For more information, please contact: [phone] * Full Code (Latest Code Status on File) Date Activated Date Inactivated Comments 11/20/2020 10:55 AM 11/20/2020 4:37 PM * Full Code Date Activated Date Inactivated Comments 10/22/2020 10:43 AM 10/22/2020 4:47 PM * Full Code Date Activated Date Inactivated Comments 10/22/2020 10:43 AM 10/22/2020 10:43 AM * Full Code Date Activated Date Inactivated Comments 10/20/2020 10:09 AM 10/20/2020 2:59 PM Care Teams Cremator Relationship Specialty Start Date End Date Unknown, Notinfile PCP - General 04/03/23
--- OUTSIDE RECORDS SUMMARY | 2024-06-23 23:45 | XMS_ITS | Referral Summary ---
Author Organization [facility] Address [address] [place] [address] Care Team Providers Care Line Patroller Name Role Phone Unknown, Notinfile Primary Care [...] (10/20/2020): Added automatically from request for surgery [id number] Back pain with left-sided sciatica 10/19/2020 Diverticulosis 09/13/2020 Overview (09/13/2020): Added automatically from request for surgery [id number] Family history of colon cancer in mother 021 Overview (09/13/2020): Added automatically from request for surgery [id number] Hx of colonic polyps 09/13/2020 Overview (09/13/2020): Added automatically from request for surgery [id number] Diverticulosis of colon 09/11/2020 Assessment & Plan (09/11/2020 1:48 PM CDT): Colonoscopy and then recap in office Carpal tunnel syndrome of left wrist 06/30/2020 Tardive dyskinesia 04/28/2020 Complex dental caries 11/28/2019 Overview (11/28/2019): Added automatically from request for surgery [id number] Essential hypertension, malignant 11/28/2019 Overview (11/28/2019): Added automatically from request for surgery [id number] Breath, shortness 11/28/2019 Overview (11/28/2019): Added automatically from request for surgery [id number] Severe diabetes mellitus 11/28/2019 Overview (11/28/2019): Added automatically from request for surgery [id number] Posttraumatic stress disorder 11/28/2019 Overview (11/28/2019): Added automatically from request for surgery [id number] Anxiety 11/28/2019 Overview (11/28/2019): Added automatically from request for surgery [id number] Infection following a procedure, subsequent enco unter [...] on file 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 Testing performed by: [address] [address] Creatinine Ur 182.5 mg/dL [facility] ([place]) Comment: Interpretive Data No reference range established. Current interpretive data was last revised 2018. Testing performed by: [address], [address] Albumin Creatinine Ratio, Ur 17 1 - 29 mg/g GENEVIEVE FONSECA ([place]) Comment:Testing performed by : [facility], [address] [facility], [address] Urine 11/17/2020 11:0 0 AM CDT 11/17/2020 2:34 PM CDT Carla Harrell SPANISH INTERPRETER LAB URINE ORDERABLES Final R esult Performing Organization Address [facility] de Phone Number [facility]) 1 [facility] [place] [address] * (ABNORMAL) Hemoglobin A1c (11/17/2020 10:48 AM [...] and children were not included. (Diabetes Care 31:3809-6468, 2008). The eAG is not equivalent to a fasting glucose. Blood 11/17/2020 10:4 8 AM CDT 11/17/2020 11:20 AM CDT Carla Harrell NP LAB BLOOD ORDERABLES Final R esult Performing Organization Address [facility] Co de Phone Number [facility] ([place]) 1 [facility] [place] [address] * (ABNORMAL) Lipid panel (11/17/2020 10:48 AM [...] 2017. Non-HDL Cholesterol 139 mg/dL [facility] ([place]) Comment: Interpretive Data Ages < or = [...] on 2017. Chol/HDL ratio 5 MARTINEZ [facility]ON[facility] ([place]) Blood 11/17/2020 10:4 8 AM CDT 11/17/2020 11:20 AM CDT Carla Harrell SPANISH INTERPRETER LAB BLOOD ORDERABLES Final R esult [facility] ([place]) 1 [facility] [place] [address] * COLONOSCOPY (10/22/2020 10:34 AM CDT) Anatomical Region Laterality Modality Other Narrative Procedure Note Yunior Barber MD - 10/22/2020 10:34 AM CDT [facility] Patient Name: Dipika Tran Procedure Date: 10/22/2020 10:34 AM Date of : 1970 Admit Type: Outpatient Age: 50 Gender: Female Attending MD: Yunior Barber M.D. Room: [facility] ENDOSCOPY ROOM 2 Note Status: [...] scope was passed under direct vision. TheColonoscope [id number] was introduced through the anus and advanced [...] 10:34 AM Procedure Code(s): --- Professional --- 90250, Colonoscopy, flexible; diagnostic, including collection of specimen(s) by brushing or washing, when performed (separateprocedure) Diagnosis Code(s): --- Professional --- K57.30, Diverticulosis of large intestine without perforation orabscess without bleeding K64.9, Unspecified hemorrhoids CPT copyright 2019 [employer] [employer]. All rights reserved. The codes documented in this report are preliminary and upon naval police coxswain reviewmay be revised to meet current compliance requirements. Recognized by the [place] [employer] for promoting quality in endoscopy Yunior Barber MD ENDOSCOPY PROCEDURES Final Re sult from Last 3 Months or Most Recently Relevant to Health Maintenance Insurance [facility] Advance Directives For more information, please contact: [phone] * Full Code (Latest Code Status on File) Date Activated Date Inactivated Comments 11/20/2020 10:55 AM 11/20/2020 4:37 PM * Full Code Date Activated Date Inactivated Comments 10/22/2020 10:43 AM 10/22/2020 4:47 PM * Full Code Date Activated Date Inactivated Comments 10/22/2020 10:43 AM 10/22/2020 10:43 AM * Full Code Date Activated Date Inactivated Comments 10/20/2020 10:09 AM 10/20/2020 2:59 PM Care Teams Line Patroller Relationship Specialty Start Date End Date Unknown, Notinfile PCP - General 04/03/23
--- OUTSIDE RECORDS SUMMARY | 2024-06-23 23:45 | XMS_ITS | Continuity of Care Document ---
Author Organization [facility] Address [address] [place] [address] Phone Care Team Providers Care Tutorial Laboratory Supervisor Name Role Phone Thong Persaud MD Unavailable [...] Active avoid drivin g or oeprate machines [place] 5 mg-325 mg tablet take 1 tablet [...] Providers Copied on Encounter OFFICE/OUTPA TIENT VISIT, [facility], [address], [place], [place], [address], [place] tel:[phone] [facility] chronic pain (chief complaint) asthma1 (chief complaint) HTN (chief complaint) AsthmaEssential (primary) hypertensionChronic pain syndrome [address], [place], [place], [address] , [place]. tel:[phone] Referring Provider: Asia Gutiér[address], [place], [place], [address]. tel:[phone] OFFICE/OUTPA TIENT VISIT, [facility], [address], [place], [place], [address], [place] tel:[phone] [facility] asthma1 (chief complaint) alcohol (chief complaint) back apin (chief complaint) arm numnbess1 (chief complaint) AsthmaAlcohol dependence, uncomplicatedChroni c pain syndromeNeuropathy 6 [address], [place], [place], [address] , [place]. tel:[phone] Referring Provider: Asia Gutiér[address], [place], [place], [address]. tel:[phone] OFFICE/OUTPA TIENT VISIT, [facility], [address], [place], [place], [address], [place] tel:[phone] [facility] HTN (chief complaint) back pain1 (chief complaint) asthma (chief complaint) HLP (chief complaint) AsthmaLumbagoEssent ial (primary) hypertensionHyperli pidemia 6 [address], [place], [place], [address] , [place]. tel:[phone] Referring Provider: Asia Gutiérrez [address], [place], [place], [address]. tel:[phone] OFFICE/OUTPA TIENT VISIT, [facility], [address], [place], [place], [address], [place] tel:[phone] [facility] headache1 (chief complaint) eye (chief complaint) back pain1 (chief complaint) HeadacheLumbagoEsse ntial (primary) hypertensionConjunc tivitis 6 [address], [place], [place], [address] , [place]. tel:[phone] Referring Provider: Asia Guti[address]rez [address], [place], [place], [address]. tel:[phone] OFFICE/OUTPA TIENT VISIT, [facility], [address], [place], [place], [address], [place] tel:[phone] [facility] HTN (chief complaint) back pain (chief complaint) lumbago1 (chief complaint) DM (chief complaint) HyperlipidemiaEssen tial (primary) hypertensionHeadach eLumbago 6 [address]. [address], [place], [place], [address] , [place]. tel:[phone] Referring Provider: Asia Gutiérrez [address], [place], [place], [address]. tel:[phone] OFFICE/OUTPA TIENT VISIT, [facility], [address], [place], [place], [address], [place] tel:[phone] [facility] Medicine HTN (chief complaint) back pain1 (chief complaint) anxiety1 (chief complaint) Essential (primary) hypertensionChronic pain syndromeDepressionO besity 6 [address], [place], [place], [address] , [place]. [phone] Referring Provider: Asia Gutiérrez [address], [place], [place], [address]. tel:[phone] OFFICE/OUTPA TIENT VISIT, [facility], [address], [place], [place], [address], [place] tel:[phone] [facility] chronic pain (chief complaint) HTN (chief complaint) HLP (chief complaint) anxiety1 (chief complaint) Chronic pain syndromeHyperlipide miaEssential (primary) hypertensionDepress ion 6 [address], [place], [place], [address] , [place]. [phone] Referring Provider: Asia Gutiérrez [facility] A, [place], [place], [address]. tel:[phone] OFFICE/OUTPA TIENT VISIT, [facility], [address], [place], [place], [address], [place] tel:[phone] [facility] COPD1 (chief complaint) cough1 (chief complaint) preDM (chief complaint) HLP (chief complaint) bipolar (chief complaint) Metabolic syndromeHyperlipide miaAcute bronchitisChronic pain syndrome 6 [address], [facility] A, [place], [place], [address] , [place]. [phone] Referring Provider: Asia Gutiérrez [facility] A, [place], [place], [address]. tel:[phone] PREV VISIT, NEW, AGE 40-64 [facility], [address] [place], [address], [place] tel:[phone] [facility] PHysical (chief complaint) Encounter for general adult medical exam w abnormal findingsType 2 diabetes mellitus without complicationsEssent ial (primary) hypertensionHyperli pidemia 6 [address], [facility] A, [place], [place], [address] , [place]. [phone] Referring Provider: Asia Gutiérrez [facility] A, [place], [place], [address]. tel:[phone] Family History Family Member Type Diagnosis Age [...] Instructions Date Instruction Additional Infor ramirez Prescribed Activity and Exercise Education Related to [...] Mental Status Date Cognitive Assessment Orientation - [place] ed to time, place, person, situation.
--- OUTSIDE RECORDS SUMMARY | 2024-06-23 23:45 | XMS_ITS | Encounter Summary ---
Author Organization [facility] Address [address] [facility] [place] [address] Care Team Providers Care Fruit Or Nut Picker Name Role Phone Meme Samuel RN Unavailable Unavailable Omar Delarosa MD, Raymond Richmond Primary Care Prov ider Adelina Trinidad DO Unavailable Encounter Details Date Type Department Care Team (Late st Contact Info) Description 03/07/2022 [facility] Outpatient Visit [facility] Orthopedics - Radiology [address] [place] [address] [place] [address] Document, Scanned Social History Tobacco Use Types Packs/Day Years Used Date Smoking Tobacco: Every Day Cigarettes Smokeless Tobacco: Never Comments:STOP 3 DAYS BEFORE SURGERY Alcohol Use Standard Drinks/Week Comments No 0 (1 standard drink = 0.6 oz pur e alcohol) Comments No Sex and Gender Information Value Date Recorded Sex Assigned at Female 01/11/2022 4:28 AM STONE POLISHER Legal Sex Female 5:17 PM STONE POLISHER Gender Identity Female 01/11/2022 4:28 AM STONE POLISHER Sexual Orientation Straight 01/11/2022 4: 28 AM STONE POLISHER COVID-19 Exposure Response Date Recorded In the last 10 days, have yo u been in contact with someone who was confirmed or suspected to have Coronavirus/COVID-19? No / Unsure 03/03/2022 1:05 PM STONE POLISHER documented as of this encounter Functional Status * Is person deaf or have serious hearing difficulty? Answer Date of Assessment Author No 12/31/2021 10:55 AM STONE POLISHER Deneen Irene RN * Is person blind [...] on filedocumented in this encounter Care Teams Fruit Or Nut Picker Relationship Specialty [place] [address] [place] [address] PCP - General Family Medicine 02/09/22 Meme Samuel RN Registered Nurse 02/06/17 Adelina Trinidad DO [address] [id number] Rheumatology 07/07/22 documented as of this encounter
--- OUTSIDE RECORDS SUMMARY | 2024-06-23 23:46 | XMS_ITS | Patient Health Record ---
Author Organization [facility] Address [address] [place] [address] Care Team Providers Care Teacher Associate Name Role Phone Bibi Lopez Primary Care [...] day Not-Taking Vitamin D (Ergocalciferol) 1.25 MG (82914 UT) 1 capsule Orally weekly Active Topiramate [...] Risk Notes Problem Schizoaffective disorder, bipolar type (93768798) Schizoaffective disorder, bipolar type (F25.0) Active confirmed Problem Insomnia disorder related to another mental disorder (49254688) Insomnia due to other mental disorder (F51.05) Active confirmed Problem Anxiety disorder (476627694) Anxiety disorder (F41.9) Active confirmed Problem Mild recurrent major depression (17341529) Depression, major, recurrent, mild (F33.0) Active confirmed Problem Posttraumatic stress disorder (40425170) Post traumatic stress disorder (PTSD) (F43.10) Active confirmed Problem Smoker (58089368) Smoker (F17.200) Active confi rmed Vital Signs Heart Rate 83 /min 05/22/2024 Respiratory Rate 16 /min 05/22/2024 Blood pressure diastolic 82 mm Hg 05/22/2024 Oximetry 97 % 05/22/2024 Height 65 in 05/22/2024 Blood pressure systolic 128 mm Hg 05/22/2024 Weight 207 lbs 05/22/2024 BMI 34.44 kg/m2 05/22/2024 Encounters Encounter Location Date Provider Diagnosis [address] [address] 05/22/2024 Bibi Lopez Schizoaffective disorder, bipolar type F25.0 ; Anxiety disorder F41.9 ; Post traumatic stress disorder (PTSD) F43.10 ; Depression, major, recurrent, mild F33.0 ; Insomnia due to other mental disorder F51.05 and Smoker F17.[address] [place] [address] 05/06/2024 Bibi Lopez [address] [place] [address] 05/06/2024 Bibi Lopez [address] [place] [address] 05/08/2024 Bibi Noeth Assessments Encounter Date Diagnosis [...] 05/22/2024 Smoker (ICD-10 - F17.200) Can call [phone] , you can speak confidentially with a highly trained quit elementary instructional coach. ( ) Not interested in quitting at this time despite benefits Plan Of Treatment Next Appt Details Provider Name:Bibi Barreto , 07/24/2024 11:20:00 AM, [address], [address], Insurance Providers Payer Name Payer Address Payer Phone Subscriber Number Group Number Insured Name Patient Relationship to Insured Coverage Start Date Coverage End Date [address] [phone] [id number] Dipika Tran Self - patient is the insured Medical (General) History Surgical History Surgery Date(Month/Year) left hip replacement Right hand repair
--- OUTSIDE RECORDS SUMMARY | 2024-06-23 23:46 | XMS_ITS | Clinical Summary ---
Author Organization [facility] Address [address] [facility] [place] [address] Care Team Providers Care Solid Tire Tuber Machine Operator Name Role Phone Meme Samuel RN Unavailable Unavailable Omar Delarosa MD, [facility] Primary Care Prov ider Adelina Trinidad DO Unavailable Source Comments [facility],non-owned Affiliates and Associated Physician Practices is amultiple site organization consisting of ambulatory clinics and hospital sitesin [place], [place], [place] and [place]. This disclosure is being madepursuant to the Care Everywhere program and may not contain all information available regarding this patient. Last updated 17.[facility] Allergies Active Allergy Reactions Criticality Noted Date [...] naloxone HCl (Narcan) 4 MG/0.1ML nasal spray [place] 1 (one) spray into the nose as [...] Oral DAILY, Reported on 08/25/2022 HYDROcodone-acetam inophen ([place]) 10-325 MG tabletIndications: Chronic pain disorder Take [...] OR BEDTIME 01/28/20 23 Active HYDROcodone-acetam inophen ([place]) 5-325 MG tablet Take 1 (one) tablet [...] Sex Assigned at Female 01/11/2022 4:28 AM DIETARY WORKER Legal Sex Female 5:17 PM DIETARY WORKER Gender Identity Female 01/11/2022 4:28 AM DIETARY WORKER Sexual Orientation Straight 01/11/2022 4: 28 AM DIETARY WORKER Last Filed Vital Signs Vital Sign [...] ENDOSCOPY, COLON, DIAGNOSTIC Routine 12/31/2021 10:08 AM DIETARY WORKER Abdominal pain, LLQ (left lower quadrant) Constipation, unspecified constipation type HEMOGLOBIN A1C Routine 03/09/2017 6:08 PM DIETARY WORKER from Last 3 Months or Most [...] - 34 U/L 11/14/2022 5:30 PM CDT -[facility] Protein Total 7.1 6.4 - 8.3 gm/dL 11/14/2022 5:30 PM CDT -[facility] Albumin 3.8 3.4 - 5.0 gm/dL 11/14/2022 5:30 PM CDT -[facility] Bilirubin Total 0.4 0.2 - 1.2 mg/dL 11/14/2022 5:30 PM CDT -[facility] eGFR by CKD-EPI 84(L) >=90 mL/min/1.7 3 m2 11/14/2022 5:30 PM CDT -[facility] Blood BLOOD SPECIMEN / Unknown Lab Venipuncture / Unknown 11/14/2022 4:59 PM CDT 11/14/2022 5:08 PM CDT us Adelina Trinidad DO LAB - CHEMISTRY ORDERABLES Final Result [facility] [address] [place] [address] * (ABNORMAL) PROTEIN CREATININE RATIO URINE RANDOM PNL (11/14/2022 4:59 PM CDT) Protein Urine 22.7(H) <11.9 mg/dL 11/14/2022 6:12 PM CDT [facility] Creatinine Urine 310.77 mg/dL 11/14/2022 6:12 PM CDT [facility] Protein/Creatin ine Ratio Urine 0.07 11/14/2022 6:12 PM CDT -[facility] Urine URINE SPECIMEN OBTAINED BY CLEAN CATCH PROCEDURE / Unknown Collection / Unknown 11/14/2022 4:59 PM CDT 11/14/2022 5:53 PM CDT Adelinagail Trinidad DO LAB - URINE CHEMISTRY ORDERABLES Final Result [facility] [address] [place] [address] * HEPATITIS SCREEN ACUTE ([facility]) (07/06/2022 11:34 [...] Resulting Agency Comment Lab Testing performed at: [facility] [address] [facility] [phone] Adelina Vivi DO LAB - CHEMISTRY ORDERABLES Final Result Performing Organization Address City/[facility]/ZIP Co de Phone Number [facility] INSURANCE BILL [address] [place] [address] * ENDOSCOPY, COLON, DIAGNOSTIC (12/31/2021 10:08 AM DIETARY WORKER) Report Endoscopy POC _ Patient Name: Dipika [...] for surveillance. Procedure Code(s): --- Professional --- 94953, Colonoscopy, flexible; with removal of tumor(s), polyp(s), or other lesion(s) by snare technique --- Technical --- 81498, Colonoscopy, flexible; with removal of tumor(s), polyp(s), or other lesion(s) by snare technique Diagnosis Code(s): --- Professional --- K64.4, Residual hemorrhoidal skin tags K63.5, Polyp of colon R10.12, Left upper quadrant pain --- Technical --- K64.4, Residual hemorrhoidal skin tags K63.5, Polyp of colon R10.12, Left upper quadrant pain CPT copyright 2019 [place] [employer]. All rights reserved. The codes documented in this report are preliminary and upon service crew leader review may be revised to meet current compliance requirements. Dr. Alivia Kline MD Malcom Kline MD 12/31/2021 10:36:33 AM This report has been signed electronically. Number of Addenda: 0 Note Initiated On: 12/31/2021 10:08 AM Procedure Date: 12/31/2021 10:08:52 AM Scope Withdrawal Time: 0 hours 9 minutes 30 seconds [facility] 12/31/2021 10:0 8 AM DIETARY WORKER Malcom Kline MD GI PROCEDURE ORDERABLES Edited Result - Final Performing Organization Address City/[facility]/ZIP Co de Phone Number [facility] ENDOS[facility] * HEMOGLOBIN A1C (03/09/2017 6:08 PM DIETARY WORKER) Hemoglobin A1c 5.9 4.4 - 6.3 % [facility] Estimated Average Glucose 123 mg/dL [facility] Comment: HbA1c Interpretation: Treatment target values recommended by ADA and other clinical organizations should be used to evaluate metabolic control in patients. Treatment Target Values: Normal : < 5.7% Pre-diabetes: 5.7-6.4% Diabetes: Equal to or greater than 6.5% Reference: [place] [employer] Standards of Care in Diabetes -2014 In patients 70 years and older consider HbA1c target range of 7.0-7.5% Reference: Diabetes Mellitus in Older People: Position Statement on behalf of the International Association of Gerontology and Geriatrics (IAGG), the Diabetes Working Libertarian for Older People (EDWPOP), and the International Task Force of Experts in Diabetes. Kofi Marie, et al. J [place] [employer] Association. 2012 Test results diagnostic [...] BLOOD SPECIMEN / Unknown 03/09/2017 6:08 PM DIETARY WORKER 03/09/2017 6:26 PM DIETARY WORKER us Kenyon Panchal MD LAB - CHEMISTRY ORDERABLES Fin al Result [address] [phone] from Last 3 Months or Most Recently Relevant to Health Maintenance Insurance [facility] SELF PAY NO INSURANCE Member Subscriber Plan / Payer (Ef fective for All Dates) Name:Dipika Llanes Member ID:Not on file Relation to Subscriber:Not on file Name:DIPIKA LLANES Subscriber ID:Not on file (Home) Address: [facility] [place] [address] Payer ID:Not on file Group ID:Not on file Type:Self Pay Address: [place], [place] Care Teams Solid Tire Tuber Machine Operator Relationship Specialty [place] [address] [place] [address] PCP - General Family Medicine 02/09/22 Meme Samuel, RN Registered Nurse 02/06/17 Adelina Trinidad DO [address] [facility] [address] [place] [address] Rheumatology 07/07/22
--- OUTSIDE RECORDS SUMMARY | 2024-06-23 23:46 | XMS_ITS ---
Author Organization [facility] Address [address] [place] [address] Care Team Providers Care Cooker Mechanic Name Role Phone Bibi Loepz Primary Care Provider REASON FOR VISIT follow-up Social History Sex Assigned At : Social History Observation Description Sex Assigned At Female Encounters Encounter Location Date Provider Diagnosis [facility] [address] [address] 05/08/2024 Bibi Lopez Plan Of Treatment Next Appt Details Provider Name:Bibi gordon, 07/24/2024 11:20:00 AM, [address] [place], [address], Progress Notes * Dipika TRANDOB:[birth year] (54 yo F)Acc No.[id number]:05/08/2024 UNLOCKED PROGRESS NOTE Patient: Dipika COVARRUBIAS Provider: TOMÁS Fernández :1970 A ge:54 Y S ex:Female Date:05/08/2024 Address:[facility] Subjective: * Chief Complaints: * 1 . Follow-up. * Medical History: Objective: * Vitals: Assessment: Plan: * Treatment: * * Electronic signature of Ebony Lopez on 06/23/2024 at 11:45 PM CDT Sign off status: Pending * Provider: TOMÁS Fernández Date: 05/08/2024 Generated for Errol choi/[place]/eTransmitting on: 0 06/23/2024 11:45 PM CDT
--- NOTE | 2024-06-23 23:48 | PC.NURSE ---
This RN asked to attempt labs d/t 2 staff who have attempted without success. Attempted lab draw x 2 without success. Phlebotomy called.
[2024-06-24] VITALS (10 sets, daily range): BP systolic 109–156; BP diastolic 67–92; PULSE 91–971; RESP 16–20; TEMP 36.2–36.7; O2SAT 97–100; BMI 35.1
--- NOTE | 2024-06-24 00:14 | PC.NURSE ---
x3 Rns unsuccessful for blood draw. phlebotomy unsuccessful at blood draw. piper perkins.
--- NOTE | 2024-06-24 00:22 | PC.NURSE ---
US IV placed by this RN. Blood Cultures x 2, and labs drawn at time of insertion.
[2024-06-24 00:31] LABS: Basophils Percent Auto 0.2 % (0.2-1.2); Eosinophils Percent Auto 0.3 % (0-4.4); Hematocrit 39.8 % (37.0-47.0); Hemoglobin 12.9 g/dL (12.0-15.0); Immature Granulocyte Absolute 0.05 K/mm3 (0.00-0.031); Immature Granulocyte Percent A 0.4 % (0-0.5); Lymphocytes Absolute Auto 2.95 K/mm3 (0.9-3.2); Lymphocytes Percent Auto 23.9 % (18.3-44.2); Mean Corpuscular HGB Conc 32.4 g/dl (32-36); Mean Corpuscular Hemoglobin 28.4 pg (26-34); Mean Corpuscular Volume 87.5 fl (80-100); Mean Platelet Volume 10.7 fl (7.4-10.4); Monocytes Absolute Auto 1.3 K/mm3 (0.1-0.6); Monocytes Percent Auto 10.5 % (2.6-8.5); Neutrophils Percent Auto 64.7 % (45.5-73.1); Platelet Count Result 268 k/mm3 (150-375); Red Blood Count 4.55 M/mm3 (4.2-5.4); Red Cell Distribution Width 12.9 % (11.5-14.5); White Blood Count 12.3 K/mm3 (4.5-10.0)
[2024-06-24] MEDS: MORPHINE SULFATE (*CRX) 4 MG/ML INJ IV PUSH ×3 (00:42→12:37)
[2024-06-24] MEDS: PIPERACILLN/TAZ 3.375GM/NS50ML 3.375 GM/50 ML BAG IVPB ×4 (00:42→17:56)
[2024-06-24] MEDS: ONDANSETRON INJ 4 MG/2 ML VIAL IV PUSH (00:42)
[2024-06-24 00:46] LABS: INR 1.1; Prothrombin Time 14.7 Seconds (11.1-14.7)
[2024-06-24 00:47] LABS: Alanine Aminotransferase 16 U/L (6-35); Albumin Level 4.3 g/dL (3.5-5.1); Alkaline Phosphatase 102 U/L (38-126); Anion Gap 10 mmol/L (4-12); Aspartate Amino Transferase 18 U/L (14-36); Bilirubin,Total 0.7 mg/dL (0.2-1.3); Blood Urea Nitrogen 12 mg/dL (7-17); Calcium 9.1 mg/dL (8.4-10.2); Carbon Dioxide 27 mmol/L (22-30); Chloride 99 mmol/L (98-107); Estimated CRCL calculation 84 ml/min; Estimated Glomerular Filt Rate > 60; Glucose 92 mg/dL (65-110); Lactic Acid Reflex 1.3 mmol/L (0.7-2.0); Potassium 3.3 mmol/L (3.4-5.0); Sodium 136 mmol/L (137-145)
[2024-06-24 00:48] LABS: Partial Thromboplastin Time 42.4 Seconds (22.3-36.8)
[2024-06-24 00:53] LABS: Glucose Point of Care 94 mg/dl (65-105)
[2024-06-24 01:00] LABS: Erythrocyte Sedimentation Rate 97 mm/hr (0-20)
[2024-06-24 01:15] LABS: CRP 28.4 mg/dL (<1.0)
[2024-06-24] MEDS: VANCOMYCIN 1,500 MG/NS 500 ML 1,500 MG/500 ML BAG 250 MG IVPB ×2 (01:38→14:53)
[2024-06-24] MEDS: SODIUM CHLORIDE 0.9% IV 1,000 ML 999 ML IV CONT (01:39)
[2024-06-24 03:10] LABS: Glucose Point of Care 124 mg/dl (65-105)
--- NOTE | 2024-06-24 03:20 | P.HP_ITS ---
H&P: HPI History of Present Illness Date/Time: 06/24/24 03:30 Chief Complaint: Right hand pain and swelling. Narrative: This is a 54-year-old female with history of MRSA infection, hypertension, dyslipidemia, prediabetes, gastroesophageal reflux disease, systemic lupus erythematosus, arthritis, fibromyalgia, depression, and anxiety who presented to the emergency department via private vehicle with complaints of right hand and pain swelling. She had carpal tunnel release on the right in 2018 which was complicated by dehiscence and subsequent MRSA infection. She has had continual issues with scar sensitivity and irritation and she underwent elective surgery for for excision of the right carpal tunnel scar, external and internal median neurolysis, hypothenar fat flap, and adjacent tissue transfer per Dr. Steiner on 05/02/2024. She reports intermittent issues with drainage from the wound since that time and was prescribed clindamycin on 06/15/2024. Three days later she followed up with her surgeon's office at which time the wound appeared to be healing with out drainage or erythema. Since that time she has developed increasing redness, swelling, and green, purulent drainage from the wound. Yest erday she developed a fever and came in for evaluation. She has pretty constant throbbing pain in the hand which is worse with even mild extension of the fingers, especially the right 5th finger. She has been taking acetaminophen with out much benefit. She denies paresthesias, numbness, and vomiting. In the ED: Vital signs on arrival include a temperature of 98.7?, blood pressure 151/86, pulse 116, respiratory 22, SpO2 90% on room air. Labs are significant for WBC count of 12.3, sodium 136, potassium 3.3, glucose 124, CRP 28.4. Right wrist CT showed severe flexor tenosynovitis throughout the wrist measuring approximately 9.7 cm proximal to distal with severe involvement at the level of the carpal tunnel as well. ED provider spoke with the patient's surgeon who recommended starting antibiotics and he will see her in follow-up this morning. Review of Systems Review of Systems: 12 systems were reviewed and are negativ e except for as per HPI. [facility] Past Medical History Medical History (Updated 06/24/24 @ 05:10 by Gayle Cano PA-C) Hypertension Schizoaffective disorder Posttraumatic stress disorder Prediabetes Chronic obstructive pulmonary disease Infection of skin due to methicillin resistant Staphylococcus aureus (MRSA) Type 2 diabetes mellitus Systemic lupus erythematosus Smoking Tardive dyskinesia Bipolar disorder Fibromyalgia Anxiety Peripheral neuropathic pain Psychiatric diagnosis Surgical History Surgical History (Updated 06/24/24 @ 05:00 by Gayle Cano PA-C) History of tubal ligation History of section History of total left hip arthroplasty History of hand surgery History of carpal tunnel release Family History Family History Unknown Hypertension Depression Heart disease Diabetes mellitus Cerebrovascular accident Neuropathy Arthritis Other Peripheral neuropathic pain Social History Social History (Updated 06/24/24 @ 05:01 by Gayle Cano PA-C) Social History: Surrogate medical decision maker: Erwin Tran, spouse. Code status: Full code. Smoking packs per day: 0.25 Smoking cigarettes per day: 5.0 Years smoked: 20 Smoking pack-years: 5.00 Smoking status: Former smoker Tobacco type: cigarettes Second hand tobacco smoke exposure: Yes Smoking end date: 08/04/23 Alcohol intake: never Substance use: never Substance use type: other Other substance usage details: Pt reports CBD use Last use: 09/04/23 Do You Feel Safe in your Home?: Yes Lack of Transportation: No Lack of Food: Never True Current Housing: I Have Housing Concerned About Future Housing: YES Difficulty Paying Gas/Electric Bills: No Difficulty Paying for Meds: No Currently Unemployed: No Education: Associate Degree Difficulty w/ Childcare or Family Care: No Living arrangements: with family Additional living arrangements comments: DAUGHTER Occupation/Education: unemployed Spiritual care concerns: No Meds Home Medications and Allergies Home Medications ?Medication ?Instructions ?Recorded ?Confirmed ?Type multivitamin 1 tablet PO DAILY 08/22/23 06/24/24 History rosuvastatin 10 mg tablet 10 mg PO DAILY #90 tabs 09/21/23 06/24/24 Rx omeprazole 40 mg capsule,delayed 40 mg PO DAILY #90 caps 01/24/24 06/24/24 Rx release hydroxyzine pamoate 25 mg capsule 50 mg (2 x 25 mg) PO QPM #180 caps 01/29/24 06/24/24 Rx losartan 100 1 tablet PO QAM #90 tabs 01/29/24 06/24/24 Rx mg-hydrochlorothiazide 12.5 mg tablet metformin 1,000 mg tablet 1,000 mg PO QAM #90 tabs 01/29/24 06/24/24 Rx propranolol 20 mg tablet 20 mg PO DAILY #90 tabs 01/29/24 06/24/24 Rx valbenazine 40 mg capsule 40 mg PO DAILY #90 caps 03/26/24 06/24/24 Rx (Ingrezza) albuterol sulfate 90 mcg/actuation 1 puff inhalation QID PRN 04/22/24 06/24/24 History aerosol inhaler shortness of breath or wheezing cholecalciferol (vitamin D3) 25 25 mcg PO DAILY 04/22/24 06/24/24 History mcg (1,000 unit) capsule (Vitamin D3) cyclobenzaprine 10 mg tablet 10 mg PO TID PRN muscle spasm 04/22/24 06/24/24 History divalproex 500 mg tablet,delayed 500 mg PO DIRECTED 04/22/24 06/24/24 History release duloxetine 60 mg capsule,delayed 60 mg PO DAILY 04/22/24 06/24/24 History release liraglutide 0.6 mg/0.1 mL (18 mg/3 0.6 mg subcut DIRECTED 04/22/24 06/24/24 History mL) subcutaneous pen injector meloxicam 7.5 mg tablet 7.5 mg PO BID PRN pain (scale 04/22/24 06/24/24 History score 4-6) pregabalin 100 mg capsule 100 mg PO TID #90 caps 05/20/24 06/24/24 Rx oxycodone-acetaminophen 5 mg-325 1 tablet PO Q6H PRN pain #40 tabs 05/27/24 06/24/24 Rx mg tablet (Percocet) Allergies Allergy/AdvReac Type Severity Reaction Status Date / Time No Known Allergies Allergy Verified 06/18/24 13:33 Vital Signs Vital Signs - 24 hr 06/23/24 22:47 06/23/24 23:19 06/23/24 23:42 Temperature 98.7 F 100.3 F H Pulse Rate 116 H 111 H Respiratory Rate 22 H 16 Blood Pressure 151/86 H 139/97 H Pulse Oximetry 98 97 06/24/24 01:39 06/24/24 01:41 Temperature 98.1 F 98.1 F Pulse Rate 102 H Respiratory Rate 18 Blood Pressure 138/87 Pulse Oximetry 98 Exam Narrative: General: Mildly ill-appearing female sitting up in bed in no distress. Weight: 92.8 kg. BMI: 35.1. HEENT: PERRL, EOMI. Sclera anicteric. Oral mucosa moist. Neck: Supple. Respiratory: Lungs are clear to auscultation bilaterally. Cardiovascular: Regular rate and rhythm with S1-S2. Gastrointestinal: Abdomen is soft, nontender, and nondistended with positive bowel sounds. Skin: Warm and dry. Right wrist is in a slightly cocked physician and the hand and forearm are wrapped with Aneudy bandage. There is obvious swelling of the palm despite the not being able to remove the dressing. The digits are swollen, most notably the 4th and 5th fingers which are preferentially held in flexion. She has exquisite tenderness with extension of the 4th and 5th fingers, even with minimal movement. I was told there were some lymphangitic streaking above the area as well. Sensation is intact in the fingers. Extremities: No cyanosis, clubbing, or edema (aside from edema related to the right hand infection). Peripheral pulses palpable though the right radial pulse was not felt as the extremity was wrapped peer Neurological: Alert. Cranial nerves 2-12 are grossly intact. No gross focal deficits to casual conversation. Psychiatric: Pleasant and cooperative with appropriate mood and flat affect. H&P: Results Labs Labs: Short CBC 06/24/24 Range/Units 00:22 WBC 12.3 H (4.5-10.0) K/mm3 Hgb 12.9 (12.0-15.0) g/dL Hct 39.8 (37.0-47.0) % Plt Count 268 (150-375) k/mm3 BMP 06/24/24 00:22 Sodium 136 L Potassium 3.3 L Chloride 99 Carbon Dioxide 27 BUN 12 Creatinine 0.73 Glucose 92 Calcium 9.1 Liver Function 06/24/24 Range/Units 00:22 Total Bilirubin 0.7 (0.2-1.3) mg/dL AST 18 (14-36) U/L ALT 16 (6-35) U/L Alkaline Phosphatase 102 (38-126) U/L Albumin 4.3 (3.5-5.1) g/dL Assessment and Plan Assessment and plan (1) Sepsis: Qualifiers: Sepsis acute organ dysfunction status: unspecified Sepsis type: sepsis due to unspecified organism Qualified Code(s): A41.9 - Sepsis, unspecified organism Code(s): A41.9 - Sepsis, unspecified organism Status: Acute (2) Cellulitis of right wrist: Code(s): L03.113 - Cellulitis of right upper limb Status: Acute (3) Tenosynovitis of wrist flexor: Code(s): M65.939 - Unspecified synovitis and tenosynovitis, unspecified forearm Status: Acute (4) Tenosynovitis of fingers: Code(s): M65.949 - Unspecified synovitis and tenosynovitis, unspecified hand Status: Acute (5) Hypokalemia: Code(s): E87.6 - Hypokalemia Status: Acute (6) Prediabetes: Code(s): R73.03 - Prediabetes Status: Acute (7) Psychiatric diagnosis: Code(s): F99 - Mental disorder, not otherwise specified Status: Acute (8) Hypertension: Code(s): I10 - Essential (primary) hypertension Status: Acute Plan The patient presented to the emergency department for evaluation of redness, swelling, and drainage of the right hand and wrist at the site of a previous surgery as detailed in HPI. Labs, imaging, EKG, and all reports were personally reviewed. She meets SIRS criteria with low-grade fever and leukocytosis in the setting of infection. She has cellulitis of the right wrist surrounding a previous incision site with purulent drainage which has been cultured. CT of the wrist showed findings of flexor tenosynovitis at the carpal tunnel, risks, and into the fingers and she has exquisite pain with extension of the right 4th and 5th fingers. She was started on vancomycin and piperacillin-tazobactam in the ED and we will continue with that for now. Blood cultures are pending. She will remain NPO for now as she may need to go to the OR today. She was encouraged to elevate the extremity as much as possible. Analgesics are available as needed. Potassium will be replaced and monitored. Prediabetes is well controlled with metformin and Liraglutide with a most recent hemoglobin A1c of 5.3%. Chronic psychiatric conditions and hypertension are without acute issues. Her home medications will be reviewed and resumed as appropriate. Findings and treatment plan were discussed with the patient. Questions were solicited and answered to satisfaction. The patient's medical management will be taken over by the hospitalist team in a.m. Quality VTE Prophylaxis VTE prophylaxis: mechanical ordered If No VTE Prophylaxis Answer both mechanical and pharmacologic: Reason no pharmacologic proph: medical contraindication (mayneed to go to the OR) The patient has been admitted under observation status. Hospitalist [facility] Advance Care Plan I have confirmed that the patient's Advanced Care Plan is present, code status is documented, or surrogate decision maker is listed in patient medical record.: Yes Medication Reconciliation I have utilized all available resources to obtain, update and review the patients current medications (includes all prescriptions, OTC, herbals, cannabis, and nutritional supplements).: Yes
[2024-06-24] MEDS: POTASSIUM CHLORIDE 20 MEQ ER TABLET PO (06:48)
[2024-06-24] MEDS: SODIUM CHLORIDE 0.9% IV 1,000 ML 100 ML IV CONT (06:49)
[2024-06-24 08:06] LABS: Glucose Point of Care 106 mg/dl (65-105)
--- NOTE | 2024-06-24 08:09 | PM.IMPN ---
Progress Note: A&P Assessment and Plan (1) Sepsis: Qualifiers: Sepsis acute organ dysfunction status: unspecified Sepsis type: sepsis due to unspecified organism Qualified Code(s): A41.9 - Sepsis, unspecified organism Code(s): A41.9 - Sepsis, unspecified organism Status: Acute Assessment and Plan: Meets SIRS criteria: Tachycardic, Febrile, Leukocytosis - lactic acid: 1.3 - suspected source: Cellulitis - blood cultures drawn on 06/23, still pending - Wrist CT: Severe tenosynovitis of the flexor digitorum longus tendon sheaths (2) Cellulitis of right wrist: Code(s): L03.113 - Cellulitis of right upper limb Status: Acute Assessment and Plan: - Monitor vital signs, I&Os, neuro status and patient is a fall risk - Monitor serum electrolytes, CBC, cultures, WBC and temp curve - Consider a consult with wound care or general surgeon - Consult pharmacy for vancomycin dosing, Vancomycin 1 gram IV q12H, obtain trough level prior to the 4th dose and begin Zosyn 3.375g [id number] - Gentle IV fluids resuscitation - General Surgery consulted, OR likely today (3) Tenosynovitis of wrist flexor: Code(s): M65.939 - Unspecified synovitis and tenosynovitis, unspecified forearm Status: Acute Assessment and Plan: - See plan above (4) Tenosynovitis of fingers: Code(s): M65.949 - Unspecified synovitis and tenosynovitis, unspecified hand Status: Acute Assessment and Plan: - See plan above (5) Hypokalemia: Code(s): E87.6 - Hypokalemia Status: Acute Assessment and Plan: - In ED: K 3.3 - Supplement as needed (6) Prediabetes: Code(s): R73.03 - Prediabetes Status: Acute (7) Psychiatric diagnosis: Code(s): F99 - Mental disorder, not otherwise specified Status: Acute Assessment and Plan: - Previous A1C % = 5.3% - Glucose 95 (8) Hypertension: Code(s): I10 - Essential (primary) hypertension Status: Acute Assessment and Plan: - Chronic, stable - 152/67 - Continue losartan-hydrochlorothiazide Time Spent With Patient Time: Subjective Date/time seen: 06/24/24 08:09 Interval history: 54-year-old female with history of MRSA infection, HTN, dyslipidemia, prediabetes, GERD, SLE, arthritis, fibromyalgia, depression, and anxiety who presented to the emergency department via private vehicle with complaints of right hand and pain swelling. 06/24/2024 Pt uncomfortable and in pain at time of exam. Possible to be taken to OR today for tenosynovitis. Continue Pip-tazo and Vanc. Blood cultures pending at this time. Review of Systems Review of Systems: 12 systems were reviewed and are negative except for as per HPI. Exam Narrative: General: Mildly ill-appearing female sitting up in bed in no distress. Weight: 92.8 kg. BMI: 35.1. HEENT: PERRL, EOMI. Sclera anicteric. Oral mucosa moist. Neck: Supple. Respiratory: Lungs are clear to auscultation bilaterally. Cardiovascular: Regular rate and rhythm with S1-S2. Gastrointestinal: Abdomen is soft, nontender, and nondistended with positive bowel sounds. Skin: Warm and dry. Hand and forearm are wrapped with Aneudy bandage. There is obvious swelling of the palm despite the not being able to remove the dressing. The digits are swollen, most notably the 4th and 5th fingers which are preferentially held in flexion. She has exquisite tenderness with extension of the 4th and 5th fingers, even with minimal movement. Lymphangitic streaking above the area as well. Sensation is intact in the fingers. Extremities: No cyanosis, clubbing, or edema (aside from edema related to the right hand infection). Peripheral pulses palpable though the right radial pulse was not felt as the extremity was wrapped peer Neurological: Alert. No gross focal deficits to casual conversation. Psychiatric: Pleasant and cooperative with appropriate mood and flat affect. Objective Data Vital Signs Vital Signs: Vital Signs - 24 hr 06/23/24 22:47 06/23/24 23:19 06/23/24 23:42 Temperature 98.7 F 100.3 F H Pulse Rate 116 H 111 H Respiratory Rate 22 H 16 Blood Pressure 151/86 H 139/97 H Pulse Oximetry 98 97 Oxygen Delivery 06/24/24 01:39 06/24/24 01:41 06/24/24 03:30 Temperature 98.1 F 98.1 F Pulse Rate 102 H Respiratory Rate 18 Blood Pressure 138/87 Pulse Oximetry 98 Oxygen Delivery Room Air 06/24/24 04:17 06/24/24 06:00 Temperature 97.1 F L Pulse Rate 91 93 Respiratory Rate 20 Blood Pressure 152/67 H Pulse Oximetry 100 Oxygen Delivery Intake/Output Intake/Output: Intake & Output 06/21/24 06/22/24 06/23/24 06/24/24 23:59 23:59 23:59 23:59 Intake Total 1550 Balance 1550 Meds/Results Medications: Active Medications Generic Name Dose Route Start Last Admin Trade Name Freq PRN Reason Stop Dose Admin Acetaminophen 650 mg 06/24/24 05:21 Acetaminophen 325 Mg Tablet PO Q6H PRN Mild Pain (1-3) or Fever Hydrocodone Bitart/Acetaminophen 1 tab 06/24/24 05:21 Hydrocodone/Acetaminophen (*Crx) 5-325 Mg Tablet PO Q6H PRN Pain Rated 4-6 Albuterol 1 puff 06/24/24 05:18 Albuterol Sulfate (*Sp) Aerosol 1 Puff INHALATION QID PRN shortness of breath or wheezing Cyclobenzaprine HCl 10 mg 06/24/24 05:18 Cyclobenzaprine Hcl 10 Mg Tablet PO TID PRN muscle spasm Dextrose 12.5 gm 06/24/24 01:38 Dextrose 50% 25 Gm/50 Ml Syringe IV PUSH PRN PRN Hypoglycemia Protocol Divalproex Sodium 1,000 mg 06/24/24 21:[address] 250 Mg Tabec PO HS [facility], 1928[facility]1983 Divalproex Sodium 500 mg 06/24/24 09:[address] 250 Mg Tabec PO DAILY [facility], [facility]1983 Duloxetine HCl 60 mg 06/24/24 09:00 Duloxetine Hcl 60 Mg Capsule.Dr PO DAILY [facility], 1928–1983 Glucagon 1 mg 06/24/24 01:38 Glucagon For Inj 1 Mg Vial IM PRN PRN Hypoglycemia Protocol Glucose 15 gm 06/24/24 01:38 Glucose Oral Gel 15 Gm Of Glucse In 37.5 Gm Tube PO PRN PRN Hypoglycemia Protocol Hydrochlorothiazide 12.5 mg 06/24/24 09:00 Hydrochlorothiazide 12.5 Mg Capsule PO QAM [facility] 1928–1983 Hydroxyzine Pamoate 50 mg 06/24/24 18:00 Hydroxyzine Pamoate 25 Mg Capsule PO QPM [facility] 1928[facility]1983 Piperacillin/Tazobactam/Dextrose 3.375 gm in 50 mls @ 100 mls/hr 06/24/24 06:00 06/24/24 06:49 Zosyn 3.375 Gm/Ns 50 Ml IVPB 100 mls/hr Q6H [place] Administration Vancomycin HCl 1,500 mg in 500 mls @ 250 mls/hr 06/24/24 02:00 06/24/24 03:42 Vancomycin 1,500 Mg/Ns 500 Ml IVPB Infused Q12H [place] Infusion Dextrose 1,000 mls @ 100 mls/hr 06/24/24 01:38 Dextrose 5% 1,000 Ml IVPB PRN PRN Hypoglycemia Protocol Sodium Chloride 1,000 mls @ 100 mls/hr 06/24/24 05:18 06/24/24 06:49 Normal Saline Iv IV CONT 06/24/24 15:17 100 mls/hr .Q10H ONE Administration Losartan Potassium 100 mg 06/24/24 09:00 Losartan Potassium 100 Mg Tablet PO DAILY [facility] Morphine Sulfate 4 mg 06/24/24 01:38 06/24/24 06:51 Morphine Sulfate (*Crx) 4 Mg/Ml Inj IV PUSH 4 mg Q2H PRN Administration Pain Rated 7-10 Multivitamins Therapeutic 1 tablet 06/24/24 09:00 Multivitamins Therapeutic Tab (*Bkc) PO DAILY [facility]1983 Ondansetron HCl 4 mg 06/24/24 01:38 Ondansetron Inj 4 Mg/2 Ml Vial IV PUSH Q4H PRN Nausea Oxycodone/Acetaminophen 1 tablet 06/24/24 05:18 Oxycodone/Acetaminophen (*Crx) 5-325 Mg Tablet PO Q6H PRN pain 7-10 Pantoprazole Sodium 40 mg 06/24/24 09:00 Pantoprazole 40 Mg Tablet PO BID [facility]1983 Pregabalin 100 mg 06/24/24 09:00 Pregabalin (*Crx) 50 Mg Capsule PO TID [facility]1983 Propranolol HCl 20 mg 06/24/24 09:00 Propranolol Hcl 20 Mg Tablet PO DAILY [facility]1983 Rosuvastatin Calcium 10 mg 06/24/24 09:00 Rosuvastatin 10 Mg Tablet PO DAILY [facility]1983 Vitamin D 1,000 units 06/24/24 09:00 Cholecalciferol 1,000 Units Tablet PO DAILY [facility]1983 Radiology Results: ITS Impressions Wrist CT 06/24/24 06:27 IMPRESSION: Severe tenosynovitis of the flexor digitorum longus tendon sheaths, as detailed above. Superinfection not excluded. Correlate clinically. Labs Labs: Laboratory Results - last 24 hr 06/24/24 06/24/24 06/24/24 00:22 00:49 03:00 WBC 12.3 H RBC 4.55 Hgb 12.9 Hct 39.8 MCV 87.5 MCH 28.4 MCHC 32.4 RDW 12.9 Plt Count 268 MPV 10.7 H Immature Gran % (Auto) 0.4 Neut % (Auto) 64.7 Lymph % (Auto) 23.9 [place] % (Auto) 10.5 H Eos % (Auto) 0.3 Baso % (Auto) 0.2 Lymph # (Auto) 2.95 [place] # (Auto) 1.3 H Eos # (Auto) 0.0 Baso # (Auto) 0.0 Abs Immat Gran (auto) 0.05 H Absolute Neuts (auto) 8.0 H Absolute Nucleated RBC 0.000 Nucleated RBC % 0.0 ESR 97 H PT 14.7 INR 1.1 APTT 42.4 H Sodium 136 L Potassium 3.3 L Chloride 99 Carbon Dioxide 27 Anion Gap 10 BUN 12 Creatinine 0.73 Estim Creat Clear Calc 84 Estimated GFR > 60 Glucose 92 POC Capillary Glucose 94 124 H Lactic Acid 1.3 Calcium 9.1 Total Bilirubin 0.7 AST 18 ALT 16 Alkaline Phosphatase 102 C-Reactive Protein 28.4 H Total Protein 8.0 Albumin 4.3 06/24/24 07:51 WBC RBC Hgb Hct MCV MCH MCHC RDW Plt Count MPV Immature Gran % (Auto) Neut % (Auto) Lymph % (Auto) [place] % (Auto) Eos % (Auto) Baso % (Auto) Lymph # (Auto) [place] # (Auto) Eos # (Auto) Baso # (Auto) Abs Immat Gran (auto) Absolute Neuts (auto) Absolute Nucleated RBC Nucleated RBC % ESR PT INR APTT Sodium Potassium Chloride Carbon Dioxide Anion Gap BUN Creatinine Estim Creat Clear Calc Estimated GFR Glucose POC Capillary Glucose 106 H Lactic Acid Calcium Total Bilirubin AST ALT Alkaline Phosphatase C-Reactive Protein Total Protein Albumin Quality VTE Prophylaxis VTE prophylaxis: mechanical ordered
[2024-06-24 11:34] LABS: Glucose Point of Care 113 mg/dl (65-105)
[2024-06-24] MEDS: oxyCODONE/ACETAMINOPHEN (*CRX) 5-325 MG TABLET 1 TABLET PO ×2 (14:52→20:43)
[2024-06-24 16:35] LABS: Glucose Point of Care 202 mg/dl (65-105)
--- NOTE | 2024-06-24 17:01 | P.CONS_ITS ---
Assessment and Plan Assessment and plan (1) Cellulitis of right wrist: Code(s): L03.113 - Cellulitis of right upper limb Status: Acute Assessment and Plan: 54yo female almost 2 months s/p right open carpal tunnel release revision complicated by wound dehiscense and now with mild cellulitis possibly somewhat masked by diabetes. CT images reviwed and agree with report and diffcult to discern the fluid is just tneosynovitis, partially due to her irrigation of wound previously with peroxide and soaking open wound in tub, etc. or infectious I idscused my impression and posible diagnoes and concern for this new downturn. I discussed plan to continue inpatient observation, continue broad spectrum abx and hopefully her wbc improves as well as edema improves and can resume outpatient management. I discussed possibility of return to OR and washout/debridement if not improving but my hope is this can be avoided given extent of inflammation, scar tissue, obscurred anatomy and potential for injury to nerve/tendon when doing so. Plan: 1) daily dressing changes - gauze, ale, splint, sherry 2) elevation 3) warm compresses BID to hand 4) cont broad spectrum abx per primary 5) will continue to follow (2) Tenosynovitis of fingers: Code(s): M65.949 - Unspecified synovitis and tenosynovitis, unspecified hand Status: Acute HPI Data of Consult Date/Time: 06/24/24 17:01 Requesting Physician: Pablo Pickens PA-C Primary Care Provider: Raymond Parmar MD Consult Narrative Narrative: 54yo female now ~2 months s/p right open carpal tunnel release revision complicated by post-op partial wound dehiscence further complciated by patient irrigating hydrogen peroxide into her wound and carpal tunnel that did appear to be recovering with wound care but patient noted area got wet again in shower over weekend and started developing edema, pain swelling and fever. presented to ER and admitted for IV abx. [facility] Past Medical History Medical History (Updated 06/24/24 @ 05:10 by Gayle Cano PA-C) Hypertension Schizoaffective disorder Posttraumatic stress disorder Prediabetes Chronic obstructive pulmonary disease Infection of skin due to methicillin resistant Staphylococcus aureus (MRSA) Type 2 diabetes mellitus Systemic lupus erythematosus Smoking Tardive dyskinesia Bipolar disorder Fibromyalgia Anxiety Peripheral neuropathic pain Psychiatric diagnosis Surgical History Surgical History (Updated 06/24/24 @ 05:00 by Gayle Cano PA-C) History of tubal ligation History of section History of total left hip arthroplasty History of hand surgery History of carpal tunnel release Family History Family History Unknown Hypertension Depression Heart disease Diabetes mellitus Cerebrovascular accident Neuropathy Arthritis Other Peripheral neuropathic pain Social History Social History (Updated 06/24/24 @ 05:01 by Gayle Cano PA-C) Social History: Surrogate medical decision maker: Erwin Tran, spouse. Code status: Full code. Smoking packs per day: 0.25 Smoking cigarettes per day: 5.0 Years smoked: 20 Smoking pack-years: 5.00 Smoking status: Former smoker Tobacco type: cigarettes Second hand tobacco smoke exposure: Yes Smoking end date: 08/04/23 Alcohol intake: never Substance use: never Substance use type: other Other substance usage details: Pt reports CBD use Last use: 09/04/23 Do You Feel Safe in your Home?: Yes Lack of Transportation: No Lack of Food: Never True Current Housing: I Have Housing Concerned About Future Housing: YES Difficulty Paying Gas/Electric Bills: No Difficulty Paying for Meds: No Currently Unemployed: No Education: Associate Degree Difficulty w/ Childcare or Family Care: No Living arrangements: with family Additional living arrangements comments: DAUGHTER Occupation/Education: unemployed Spiritual care concerns: No Meds Home Medications and Allergies Home Medications ?Medication ?Instructions ?Recorded ?Confirmed ?Type multivitamin 1 tablet PO DAILY 08/22/23 06/24/24 History rosuvastatin 10 mg tablet 10 mg PO DAILY #90 tabs 09/21/23 06/24/24 Rx omeprazole 40 mg capsule,delayed 40 mg PO DAILY #90 caps 01/24/24 06/24/24 Rx release hydroxyzine pamoate 25 mg capsule 50 mg (2 x 25 mg) PO QPM #180 caps 01/29/24 06/24/24 Rx losartan 100 1 tablet PO QAM #90 tabs 01/29/24 06/24/24 Rx mg-hydrochlorothiazide 12.5 mg tablet metformin 1,000 mg tablet 1,000 mg PO QAM #90 tabs 01/29/24 06/24/24 Rx propranolol 20 mg tablet 20 mg PO DAILY #90 tabs 01/29/24 06/24/24 Rx valbenazine 40 mg capsule 40 mg PO DAILY #90 caps 03/26/24 06/24/24 Rx (Ingrezza) albuterol sulfate 90 mcg/actuation 1 puff inhalation QID PRN 04/22/24 06/24/24 History aerosol inhaler shortness of breath or wheezing cholecalciferol (vitamin D3) 25 25 mcg PO DAILY 04/22/24 06/24/24 History mcg (1,000 unit) capsule (Vitamin D3) cyclobenzaprine 10 mg tablet 10 mg PO TID PRN muscle spasm 04/22/24 06/24/24 History divalproex 500 mg tablet,delayed 500 mg PO DIRECTED 04/22/24 06/24/24 History release duloxetine 60 mg capsule,delayed 60 mg PO DAILY 04/22/24 06/24/24 History release liraglutide 0.6 mg/0.1 mL (18 mg/3 0.6 mg subcut DIRECTED 04/22/24 06/24/24 History mL) subcutaneous pen injector meloxicam 7.5 mg tablet 7.5 mg PO BID PRN pain (scale 04/22/24 06/24/24 History score 4-6) pregabalin 100 mg capsule 100 mg PO TID #90 caps 05/20/24 06/24/24 Rx oxycodone-acetaminophen 5 mg-325 1 tablet PO Q6H PRN pain #40 tabs 05/27/24 06/24/24 Rx mg tablet (Percocet) Allergies Allergy/AdvReac Type Severity Reaction Status Date / Time No Known Allergies Allergy Verified 06/18/24 13:33 Vital Signs Vital Signs - 24 hr 06/23/24 22:47 06/23/24 23:19 06/23/24 23:42 Temperature 37.1 C 37.9 C H Pulse Rate 116 H 111 H Respiratory Rate 22 H 16 Blood Pressure 151/86 H 139/97 H Pulse Oximetry 98 97 Oxygen Delivery 06/24/24 01:39 06/24/24 01:41 06/24/24 03:30 Temperature 36.7 C 36.7 C Pulse Rate 102 H Respiratory Rate 18 Blood Pressure 138/87 Pulse Oximetry 98 Oxygen Delivery Room Air 06/24/24 04:17 06/24/24 06:00 06/24/24 08:00 Temperature 36.2 C L Pulse Rate 91 93 Respiratory Rate 20 Blood Pressure 152/67 H Pulse Oximetry 100 Oxygen Delivery Room Air 06/24/24 08:00 06/24/24 12:00 06/24/24 14:00 Temperature 36.4 C Pulse Rate 95 97 97 Respiratory Rate 16 Blood Pressure 156/92 H Pulse Oximetry 97 Oxygen Delivery 06/24/24 16:00 Temperature Pulse Rate 971 H Respiratory Rate Blood Pressure Pulse Oximetry Oxygen Delivery Exam 2 Narrative: Gen: right hand in volar splint. notable 2+ pitting edema dorsum right hand and digits. 1cm somewhat macerated wound/opening right volar wrist flexion crease/forearm with mild serous soiling on dressing but no expressable fluid or crepitus as noted previously ROM: fds/fdp/edc intact but limtied from edema and tenosynovitis Vascular: Warm and well perfused Sensation: Intact to light touch Results Labs 06/24/24 00:22 06/24/24 00:22 Labs: Short CBC 06/24/24 Range/Units 00:22 WBC 12.3 H (4.5-10.0) K/mm3 Hgb 12.9 (12.0-15.0) g/dL Hct 39.8 (37.0-47.0) % Plt Count 268 (150-375) k/mm3 BMP 06/24/24 00:22 Sodium 136 L Potassium 3.3 L Chloride 99 Carbon Dioxide 27 BUN 12 Creatinine 0.73 Glucose 92 Calcium 9.1 Liver Function 06/24/24 Range/Units 00:22 Total Bilirubin 0.7 (0.2-1.3) mg/dL AST 18 (14-36) U/L ALT 16 (6-35) U/L Alkaline Phosphatase 102 (38-126) U/L Albumin 4.3 (3.5-5.1) g/dL
[2024-06-24] MEDS: PANTOPRAZOLE 40 MG TABLET PO (17:56)
[2024-06-24] MEDS: hydrOXYzine pamoate 25 MG CAPSULE 50 MG PO (17:56)
[2024-06-24] MEDS: PREGABALIN (*CRX) 50 MG CAPSULE 100 MG PO (17:56)
[2024-06-24] MEDS: CYCLOBENZAPRINE HCL 10 MG TABLET PO (17:58)
[2024-06-24] MEDS: DIVALPROEX SODIUM DR 250 MG TABEC 1000 MG PO (20:43)
[2024-06-25] VITALS (10 sets, daily range): BP systolic 128–146; BP diastolic 72–80; PULSE 70–99; RESP 16–20; TEMP 36.1–36.5; O2SAT 98–100
[2024-06-25] MEDS: PIPERACILLN/TAZ 3.375GM/NS50ML 3.375 GM/50 ML BAG IVPB ×5 (00:34→23:45)
[2024-06-25] MEDS: VANCOMYCIN 1,500 MG/NS 500 ML 1,500 MG/500 ML BAG 250 MG IVPB (01:02)
[2024-06-25] MEDS: CYCLOBENZAPRINE HCL 10 MG TABLET PO ×2 (01:02→22:08)
[2024-06-25] MEDS: oxyCODONE/ACETAMINOPHEN (*CRX) 5-325 MG TABLET 1 TABLET PO ×4 (03:08→20:54)
[2024-06-25 05:26] LABS: Glucose Point of Care 99 mg/dl (65-105)
[2024-06-25 05:56] LABS: Basophils Percent Auto 0.4 % (0.2-1.2); Eosinophils Absolute Auto 0.1 K/mm3 (0-0.3); Eosinophils Percent Auto 1.4 % (0-4.4); Hematocrit 36.7 % (37.0-47.0); Hemoglobin 11.5 g/dL (12.0-15.0); Immature Granulocyte Absolute 0.02 K/mm3 (0.00-0.031); Immature Granulocyte Percent A 0.3 % (0-0.5); Lymphocytes Absolute Auto 2.48 K/mm3 (0.9-3.2); Lymphocytes Percent Auto 33.7 % (18.3-44.2); Mean Corpuscular HGB Conc 31.3 g/dl (32-36); Mean Corpuscular Hemoglobin 28.1 pg (26-34); Mean Corpuscular Volume 89.7 fl (80-100); Mean Platelet Volume 10.7 fl (7.4-10.4); Monocytes Absolute Auto 0.6 K/mm3 (0.1-0.6); Monocytes Percent Auto 8.2 % (2.6-8.5); Neutrophils Absolute Auto 4.1 K/mm3 (1.3-6.7); Platelet Count Result 230 k/mm3 (150-375); Red Blood Count 4.09 M/mm3 (4.2-5.4); Red Cell Distribution Width 12.6 % (11.5-14.5); White Blood Count 7.4 K/mm3 (4.5-10.0)
[2024-06-25 06:08] LABS: Alanine Aminotransferase 17 U/L (6-35); Albumin Level 3.7 g/dL (3.5-5.1); Alkaline Phosphatase 86 U/L (38-126); Anion Gap 8 mmol/L (4-12); Aspartate Amino Transferase 21 U/L (14-36); Bilirubin,Total 0.4 mg/dL (0.2-1.3); Blood Urea Nitrogen 6 mg/dL (7-17); Calcium 8.8 mg/dL (8.4-10.2); Carbon Dioxide 29 mmol/L (22-30); Chloride 102 mmol/L (98-107); Estimated CRCL calculation 91 ml/min; Estimated Glomerular Filt Rate > 60; Glucose 113 mg/dL (65-110); Potassium 3.7 mmol/L (3.4-5.0); Sodium 139 mmol/L (137-145)
[2024-06-25] MEDS: CHOLECALCIFEROL 1,000 UNITS TABLET 1000 UNITS PO (08:23)
[2024-06-25] MEDS: PREGABALIN (*CRX) 50 MG CAPSULE 100 MG PO ×3 (08:24→17:16)
[2024-06-25] MEDS: DULoxetine HCL 60 MG CAPSULE.DR PO (08:24)
[2024-06-25] MEDS: MULTIVITAMINS THERAPEUTIC TAB (*BKC) 1 TABLET PO (08:24)
[2024-06-25] MEDS: hydroCHLOROthiazide 12.5 MG CAPSULE PO (08:24)
[2024-06-25] MEDS: PANTOPRAZOLE 40 MG TABLET PO ×2 (08:24→17:16)
[2024-06-25] MEDS: DIVALPROEX SODIUM DR 250 MG TABEC 500 MG PO (08:24)
[2024-06-25] MEDS: LOSARTAN POTASSIUM 100 MG TABLET PO (08:24)
[2024-06-25] MEDS: ROSUVASTATIN 10 MG TABLET PO (08:24)
[2024-06-25] MEDS: PROPRANOLOL HCL 20 MG TABLET PO (08:25)
[2024-06-25 13:27] LABS: Vancomycin Trough 9.5 ug/mL (10.0-20.0)
[2024-06-25] MEDS: VANCOMYCIN 2,000 MG/NS 500 ML 2,000 MG/500 ML BAG 250 MG IVPB (14:35)
--- NOTE | 2024-06-25 16:00 | PM.IMPN ---
Progress Note: A&P Assessment and Plan (1) Sepsis: Qualifiers: Sepsis acute organ dysfunction status: unspecified Sepsis type: sepsis due to unspecified organism Qualified Code(s): A41.9 - Sepsis, unspecified organism Code(s): A41.9 - Sepsis, unspecified organism Status: Acute Assessment and Plan: Meets SIRS criteria: Tachycardic, Febrile, Leukocytosis - lactic acid: 1.3 - suspected source: Cellulitis - blood cultures drawn on 06/23, still pending - Wrist CT: Severe tenosynovitis of the flexor digitorum longus tendon sheaths (2) Cellulitis of right wrist: Code(s): L03.113 - Cellulitis of right upper limb Status: Acute Assessment and Plan: - Monitor vital signs, I&Os, neuro status and patient is a fall risk - Monitor serum electrolytes, CBC, cultures, WBC and temp curve - Consider a consult with wound care or general surgeon - Consult pharmacy for vancomycin dosing, Vancomycin 1 gram IV q12H, obtain trough level prior to the 4th dose and begin Zosyn 3.375g [id number] - Gentle IV fluids resuscitation - General Surgery consulted, OR likely today (3) Tenosynovitis of wrist flexor: Code(s): M65.939 - Unspecified synovitis and tenosynovitis, unspecified forearm Status: Acute Assessment and Plan: - See plan above (4) Tenosynovitis of fingers: Code(s): M65.949 - Unspecified synovitis and tenosynovitis, unspecified hand Status: Acute Assessment and Plan: - See plan above (5) Hypokalemia: Code(s): E87.6 - Hypokalemia Status: Acute Assessment and Plan: - In ED: K 3.3 - Supplement as needed (6) Prediabetes: Code(s): R73.03 - Prediabetes Status: Acute (7) Psychiatric diagnosis: Code(s): F99 - Mental disorder, not otherwise specified Status: Acute Assessment and Plan: - Previous A1C % = 5.3% - Glucose 95 (8) Hypertension: Code(s): I10 - Essential (primary) hypertension Status: Acute Assessment and Plan: - Chronic, stable - 152/67 - Continue losartan-hydrochlorothiazide Subjective Date/time seen: 06/25/24 16:00 Interval history: Patient still complains of pain. Continue Zosyn and vancomycin Review of Systems Review of Systems: 12 systems were reviewed and are negative except for as per HPI. Exam Narrative: General: Mildly ill-appearing female sitting up in bed in no distress. Weight: 92.8 kg. BMI: 35.1. HEENT: PERRL, EOMI. Sclera anicteric. Oral mucosa moist. Neck: Supple. Respiratory: Lungs are clear to auscultation bilaterally. Cardiovascular: Regular rate and rhythm with S1-S2. Gastrointestinal: Abdomen is soft, nontender, and nondistended with positive bowel sounds. Skin: Warm and dry. Hand and forearm are wrapped with Aneudy bandage. There is obvious swelling of the palm despite the not being able to remove the dressing. The digits are swollen, most notably the 4th and 5th fingers which are preferentially held in flexion. She has exquisite tenderness with extension of the 4th and 5th fingers, even with minimal movement. Lymphangitic streaking above the area as well. Sensation is intact in the fingers. Extremities: No cyanosis, clubbing, or edema (aside from edema related to the right hand infection). Peripheral pulses palpable though the right radial pulse was not felt as the extremity was wrapped peer Neurological: Alert. No gross focal deficits to casual conversation. Psychiatric: Pleasant and cooperative with appropriate mood and flat affect. Objective Data Vital Signs Vital Signs: Vital Signs - 24 hr 06/24/24 20:00 06/24/24 20:48 06/24/24 22:00 Temperature 97.7 F Pulse Rate 96 96 Respiratory Rate 20 Blood Pressure 109/80 Pulse Oximetry 100 Oxygen Delivery Room Air 06/25/24 00:00 06/25/24 04:00 06/25/24 06:00 Temperature 97.0 F L Pulse Rate 91 98 84 Respiratory Rate 20 Blood Pressure 146/80 H Pulse Oximetry 100 Oxygen Delivery 06/25/24 08:25 06/25/24 08:43 06/25/24 12:00 Temperature Pulse Rate 99 96 70 Respiratory Rate Blood Pressure Pulse Oximetry Oxygen Delivery 06/25/24 13:33 Temperature 97.1 F L Pulse Rate 70 Respiratory Rate 19 Blood Pressure 134/74 Pulse Oximetry 98 Oxygen Delivery Intake/Output Intake/Output: Intake & Output 06/22/24 06/23/24 06/24/24 06/25/24 23:59 23:59 23:59 23:59 Intake Total 5000 1830 Output Total 2100 Balance 5000 -270 Meds/Results Medications: Active Medications Generic Name Dose Route Start Last Admin Trade Name Freq PRN Reason Stop Dose Admin Acetaminophen 650 mg 06/24/24 05:21 Acetaminophen 325 Mg Tablet PO Q6H PRN Mild Pain (1-3) or Fever Hydrocodone Bitart/Acetaminophen 1 tab 06/24/24 05:21 Hydrocodone/Acetaminophen (*Crx) 5-325 Mg Tablet PO Q6H PRN Pain Rated 4-6 Albuterol 1 puff 06/24/24 05:18 Albuterol Sulfate (*Sp) Aerosol 1 Puff INHALATION QID PRN shortness of breath or wheezing Cyclobenzaprine HCl 10 mg 06/24/24 05:18 06/25/24 01:02 Cyclobenzaprine Hcl 10 Mg Tablet PO 10 mg TID PRN Administration muscle spasm Dextrose 12.5 gm 06/24/24 01:38 Dextrose 50% 25 Gm/50 Ml Syringe IV PUSH PRN PRN Hypoglycemia Protocol Divalproex Sodium 1,000 mg 06/24/24 21:00 06/24/24 20:[address] 250 Mg Tabec PO 1,000 mg HS [facility] Administration Divalproex Sodium 500 mg 06/24/24 09:00 06/25/24 08:[address] 250 Mg Tabec PO 500 mg DAILY [facility] Administration Duloxetine HCl 60 mg 06/24/24 09:00 06/25/24 08:24 Duloxetine Hcl 60 Mg Capsule.Dr PO 60 mg DAILY [facility] Administration Glucagon 1 mg 06/24/24 01:38 Glucagon For Inj 1 Mg Vial IM PRN PRN Hypoglycemia Protocol Glucose 15 gm 06/24/24 01:38 Glucose Oral Gel 15 Gm Of Glucse In 37.5 Gm Tube PO PRN PRN Hypoglycemia Protocol Hydrochlorothiazide 12.5 mg 06/24/24 09:00 06/25/24 08:24 Hydrochlorothiazide 12.5 Mg Capsule PO 12.5 mg QAM [facility] Administration Hydroxyzine Pamoate 50 mg 06/24/24 18:00 06/24/24 17:56 Hydroxyzine Pamoate 25 Mg Capsule PO 50 mg QPM [facility] Administration Piperacillin/Tazobactam/Dextrose 3.375 gm in 50 mls @ 100 mls/hr 06/24/24 06:00 06/25/24 13:50 Zosyn 3.375 Gm/Ns 50 Ml IVPB Infused Q6H [facility] Infusion Dextrose 1,000 mls @ 100 mls/hr 06/24/24 01:38 Dextrose 5% 1,000 Ml IVPB PRN PRN Hypoglycemia Protocol Vancomycin HCl 2,000 mg in 500 mls @ 250 mls/hr 06/25/24 14:00 06/25/24 14:35 Vancomycin 2,000 Mg/Ns 500 Ml IVPB 250 mls/hr Q12H [facility] Administration Losartan Potassium 100 mg 06/24/24 09:00 06/25/24 08:24 Losartan Potassium 100 Mg Tablet PO 100 mg DAILY [facility] Administration Morphine Sulfate 4 mg 06/24/24 01:38 06/24/24 12:37 Morphine Sulfate (*Crx) 4 Mg/Ml Inj IV PUSH 4 mg Q2H PRN Administration Pain Rated 7-10 Multivitamins Therapeutic 1 tablet 06/24/24 09:00 06/25/24 08:24 Multivitamins Therapeutic Tab (*Bkc) PO 1 tablet DAILY [facility] Administration Ondansetron HCl 4 mg 06/24/24 01:38 Ondansetron Inj 4 Mg/2 Ml Vial IV PUSH Q4H PRN Nausea Oxycodone/Acetaminophen 1 tablet 06/24/24 05:18 06/25/24 15:09 Oxycodone/Acetaminophen (*Crx) 5-325 Mg Tablet PO 1 tablet Q6H PRN Administration pain 7-10 Pantoprazole Sodium 40 mg 06/24/24 09:00 06/25/24 08:24 Pantoprazole 40 Mg Tablet PO 40 mg BID [facility] Administration Pregabalin 100 mg 06/24/24 09:00 06/25/24 12:19 Pregabalin (*Crx) 50 Mg Capsule PO 100 mg TID [facility] Administration Propranolol HCl 20 mg 06/24/24 09:00 06/25/24 08:25 Propranolol Hcl 20 Mg Tablet PO 20 mg DAILY [facility] Administration Rosuvastatin Calcium 10 mg 06/24/24 09:00 06/25/24 08:24 Rosuvastatin 10 Mg Tablet PO 10 mg DAILY [facility] Administration Vitamin D 1,000 units 06/24/24 09:00 06/25/24 08:23 Cholecalciferol 1,000 Units Tablet PO 1,000 units DAILY [facility] Administration Radiology Results: ITS Impressions Wrist CT 06/24/24 06:27 IMPRESSION: Severe tenosynovitis of the flexor digitorum longus tendon sheaths, as detailed above. Superinfection not excluded. Correlate clinically. Labs Labs: Laboratory Results - last 24 hr 06/24/24 06/24/24 06/25/24 16:32 20:08 05:41 WBC 7.4 RBC 4.09 L Hgb 11.5 L Hct 36.7 L MCV 89.7 MCH 28.1 MCHC 31.3 L RDW 12.6 Plt Count 230 MPV 10.7 H Immature Gran % (Auto) 0.3 Neut % (Auto) 56.0 Lymph % (Auto) 33.7 [place] % (Auto) 8.2 Eos % (Auto) 1.4 Baso % (Auto) 0.4 Lymph # (Auto) 2.48 [place] # (Auto) 0.6 Eos # (Auto) 0.1 Baso # (Auto) 0.0 Abs Immat Gran (auto) 0.02 Absolute Neuts (auto) 4.1 Absolute Nucleated RBC 0.000 Nucleated RBC % 0.0 Sodium 139 Potassium 3.7 Chloride 102 Carbon Dioxide 29 Anion Gap 8 BUN 6 L D Creatinine 0.65 L Estim Creat Clear Calc 91 Estimated GFR > 60 Glucose 113 H POC Capillary Glucose 202 H 99 Calcium 8.8 Total Bilirubin 0.4 AST 21 ALT 17 Alkaline Phosphatase 86 Total Protein 7.0 Albumin 3.7 Vancomycin Trough 06/25/24 12:57 WBC RBC Hgb Hct MCV MCH MCHC RDW Plt Count MPV Immature Gran % (Auto) Neut % (Auto) Lymph % (Auto) [place] % (Auto) Eos % (Auto) Baso % (Auto) Lymph # (Auto) [place] # (Auto) Eos # (Auto) Baso # (Auto) Abs Immat Gran (auto) Absolute Neuts (auto) Absolute Nucleated RBC Nucleated RBC % Sodium Potassium Chloride Carbon Dioxide Anion Gap BUN Creatinine Estim Creat Clear Calc Estimated GFR Glucose POC Capillary Glucose Calcium Total Bilirubin AST ALT Alkaline Phosphatase Total Protein Albumin Vancomycin Trough 9.5 L Quality VTE Prophylaxis VTE prophylaxis: mechanical ordered Hospitalist MIPS Advance Care Plan I have confirmed that the patient's Advanced Care Plan is present, code status is documented, or surrogate decision maker is listed in patient medical record.: Yes Medication Reconciliation I have utilized all available resources to obtain, update and review the patients current medications (includes all prescriptions, OTC, herbals, cannabis, and nutritional supplements).: Yes
--- NOTE | 2024-06-25 16:57 | P.PN_ITS ---
Progress Note: A&P Assessment and Plan (1) Cellulitis of right wrist: Code(s): L03.113 - Cellulitis of right upper limb Status: Acute Assessment and Plan: 54yo female s/p revision right open carpal tunnel release complicated by wound healing issue and cellulitis that is improving with conservative mgmt but edema and synovitis remains signifiant wbc reducing discussed impression and Dx and hopeful continued improvement and that further operation can be avoided with expectation that this wound should heal with wound care. Plan: 1) continue splint and elevation 2) recommend warm comrpesses to right hand BID 3) if OK per hospitalist higher dose NSAID therapy such as ibuprofen 800mg po [id number] to help with synovitis/edema 4) continue abx per hosipitalist 5) will continue to follow Subjective Date/time seen: 06/25/24 16:57 Review of Systems Review of Systems: Pt seen and examined at bedside. notes some interval improvement in symptoms but notes wound continues to drain Exam Narrative: Gen: right hand in volar splint. interval improvent in dorsal hand edema but still notable. no erythema or warmth. right volar wrist wound unchanged and macerated with light serous staining on gauze ROM: some interval improvment in digit ROM with reduction in edema but still limited from sweling. Vascular: Warm and well perfused Sensation: Intact to light touch. no clear areas of tenderness over flexor sheaths, carpal tunnel. Objective Data Vital Signs Vital Signs: Vital Signs - 24 hr 06/24/24 20:00 06/24/24 20:48 06/24/24 22:00 Temperature 36.5 C Pulse Rate 96 96 Respiratory Rate 20 Blood Pressure 109/80 Pulse Oximetry 100 Oxygen Delivery Room Air 06/25/24 00:00 06/25/24 04:00 06/25/24 06:00 Temperature 36.1 C L Pulse Rate 91 98 84 Respiratory Rate 20 Blood Pressure 146/80 H Pulse Oximetry 100 Oxygen Delivery 06/25/24 08:25 06/25/24 08:43 06/25/24 12:00 Temperature Pulse Rate 99 96 70 Respiratory Rate Blood Pressure Pulse Oximetry Oxygen Delivery 06/25/24 13:33 Temperature 36.2 C L Pulse Rate 70 Respiratory Rate 19 Blood Pressure 134/74 Pulse Oximetry 98 Oxygen Delivery Intake/Output Intake/Output: Intake & Output 05/0306/23/24 06/24/24 06/25/24 23:59 23:59 23:59 23:59 Intake Total 5000 1830 Output Total 2100 Balance 5000 -270 Meds/Results Medications: Active Medications Generic Name Dose Route Start Last Admin Trade Name Freq PRN Reason Stop Dose Admin Acetaminophen 650 mg 06/24/24 05:21 Acetaminophen 325 Mg Tablet PO Q6H PRN Mild Pain (1-3) or Fever Hydrocodone Bitart/Acetaminophen 1 tab 06/24/24 05:21 Hydrocodone/Acetaminophen (*Crx) 5-325 Mg Tablet PO Q6H PRN Pain Rated 4-6 Albuterol 1 puff 06/24/24 05:18 Albuterol Sulfate (*Sp) Aerosol 1 Puff INHALATION QID PRN shortness of breath or wheezing Cyclobenzaprine HCl 10 mg 06/24/24 05:18 06/25/24 01:02 Cyclobenzaprine Hcl 10 Mg Tablet PO 10 mg TID PRN Administration muscle spasm Dextrose 12.5 gm 06/24/24 01:38 Dextrose 50% 25 Gm/50 Ml Syringe IV PUSH PRN PRN Hypoglycemia Protocol Divalproex Sodium 1,000 mg 06/24/24 21:00 06/24/24 20:[address] 250 Mg Tabec PO 1,000 mg HS [facility] Administration Divalproex Sodium 500 mg 06/24/24 09:00 06/25/24 08:[address] 250 Mg Tabec PO 500 mg DAILY [facility] Administration Duloxetine HCl 60 mg 06/24/24 09:00 06/25/24 08:24 Duloxetine Hcl 60 Mg Capsule.Dr PO 60 mg DAILY [facility] Administration Glucagon 1 mg 06/24/24 01:38 Glucagon For Inj 1 Mg Vial IM PRN PRN Hypoglycemia Protocol Glucose 15 gm 06/24/24 01:38 Glucose Oral Gel 15 Gm Of Glucse In 37.5 Gm Tube PO PRN PRN Hypoglycemia Protocol Hydrochlorothiazide 12.5 mg 06/24/24 09:00 06/25/24 08:24 Hydrochlorothiazide 12.5 Mg Capsule PO 12.5 mg QAM [place] Administration Hydroxyzine Pamoate 50 mg 06/24/24 18:00 06/24/24 17:56 Hydroxyzine Pamoate 25 Mg Capsule PO 50 mg QPM [facility] Administration Piperacillin/Tazobactam/Dextrose 3.375 gm in 50 mls @ 100 mls/hr 06/24/24 06:00 06/25/24 13:50 Zosyn 3.375 Gm/Ns 50 Ml IVPB Infused Q6H [facility] Infusion Dextrose 1,000 mls @ 100 mls/hr 06/24/24 01:38 Dextrose 5% 1,000 Ml IVPB PRN PRN Hypoglycemia Protocol Vancomycin HCl 2,000 mg in 500 mls @ 250 mls/hr 06/25/24 14:00 06/25/24 14:35 Vancomycin 2,000 Mg/Ns 500 Ml IVPB 250 mls/hr Q12H [facility] Administration Losartan Potassium 100 mg 06/24/24 09:00 06/25/24 08:24 Losartan Potassium 100 Mg Tablet PO 100 mg DAILY [facility] Administration Morphine Sulfate 4 mg 06/24/24 01:38 06/24/24 12:37 Morphine Sulfate (*Crx) 4 Mg/Ml Inj IV PUSH 4 mg Q2H PRN Administration Pain Rated 7-10 Multivitamins Therapeutic 1 tablet 06/24/24 09:00 06/25/24 08:24 Multivitamins Therapeutic Tab (*Bkc) PO 1 tablet DAILY [facility] Administration Ondansetron HCl 4 mg 06/24/24 01:38 Ondansetron Inj 4 Mg/2 Ml Vial IV PUSH Q4H PRN Nausea Oxycodone/Acetaminophen 1 tablet 06/24/24 05:18 06/25/24 15:09 Oxycodone/Acetaminophen (*Crx) 5-325 Mg Tablet PO 1 tablet Q6H PRN Administration pain 7-10 Pantoprazole Sodium 40 mg 06/24/24 09:00 06/25/24 08:24 Pantoprazole 40 Mg Tablet PO 40 mg BID [facility] Administration Pregabalin 100 mg 06/24/24 09:00 06/25/24 12:19 Pregabalin (*Crx) 50 Mg Capsule PO 100 mg TID [facility] Administration Propranolol HCl 20 mg 06/24/24 09:00 06/25/24 08:25 Propranolol Hcl 20 Mg Tablet PO 20 mg DAILY [facility] Administration Rosuvastatin Calcium 10 mg 06/24/24 09:00 06/25/24 08:24 Rosuvastatin 10 Mg Tablet PO 10 mg DAILY [facility] Administration Vitamin D 1,000 units 06/24/24 09:00 05/06/25 08:23 Cholecalciferol 1,000 Units Tablet PO 1,000 units DAILY [facility] Administration Radiology Results: ITS Impressions Wrist CT 06/24/24 06:27 IMPRESSION: Severe tenosynovitis of the flexor digitorum longus tendon sheaths, as detailed above. Superinfection not excluded. Correlate clinically. Labs Labs: Laboratory Results - last 24 hr 06/24/24 06/25/24 06/25/24 20:08 05:41 12:57 WBC 7.4 RBC 4.09 L Hgb 11.5 L Hct 36.7 L MCV 89.7 MCH 28.1 MCHC 31.3 L RDW 12.6 Plt Count 230 MPV 10.7 H Immature Gran % (Auto) 0.3 Neut % (Auto) 56.0 Lymph % (Auto) 33.7 [place] % (Auto) 8.2 Eos % (Auto) 1.4 Baso % (Auto) 0.4 Lymph # (Auto) 2.48 [place] # (Auto) 0.6 Eos # (Auto) 0.1 Baso # (Auto) 0.0 Abs Immat Gran (auto) 0.02 Absolute Neuts (auto) 4.1 Absolute Nucleated RBC 0.000 Nucleated RBC % 0.0 Sodium 139 Potassium 3.7 Chloride 102 Carbon Dioxide 29 Anion Gap 8 BUN 6 L D Creatinine 0.65 L Estim Creat Clear Calc 91 Estimated GFR > 60 Glucose 113 H POC Capillary Glucose 99 Calcium 8.8 Total Bilirubin 0.4 AST 21 ALT 17 Alkaline Phosphatase 86 Total Protein 7.0 Albumin 3.7 Vancomycin Trough 9.5 L
[2024-06-25] MEDS: hydrOXYzine pamoate 25 MG CAPSULE 50 MG PO (17:16)
[2024-06-25] MEDS: DIVALPROEX SODIUM DR 250 MG TABEC 1000 MG PO (20:53)
[2024-06-26] VITALS (10 sets, daily range): BP systolic 138–157; BP diastolic 80–83; PULSE 76–104; RESP 16–18; TEMP 36.1–36.9; O2SAT 96–98
[2024-06-26] MEDS: VANCOMYCIN 2,000 MG/NS 500 ML 2,000 MG/500 ML BAG 250 MG IVPB (02:14)
[2024-06-26] MEDS: oxyCODONE/ACETAMINOPHEN (*CRX) 5-325 MG TABLET 1 TABLET PO ×4 (02:16→23:15)
[2024-06-26 06:39] LABS: Hematocrit 32.8 % (37.0-47.0); Hemoglobin 10.4 g/dL (12.0-15.0); Mean Corpuscular HGB Conc 31.7 g/dl (32-36); Mean Corpuscular Hemoglobin 28.6 pg (26-34); Mean Corpuscular Volume 90.1 fl (80-100); Mean Platelet Volume 10.6 fl (7.4-10.4); Platelet Count Result 233 k/mm3 (150-375); Red Blood Count 3.64 M/mm3 (4.2-5.4); Red Cell Distribution Width 12.7 % (11.5-14.5); White Blood Count 5.2 K/mm3 (4.5-10.0)
[2024-06-26 06:59] LABS: Alanine Aminotransferase 15 U/L (6-35); Albumin Level 3.3 g/dL (3.5-5.1); Alkaline Phosphatase 71 U/L (38-126); Anion Gap 5 mmol/L (4-12); Aspartate Amino Transferase 18 U/L (14-36); Bilirubin,Total 0.2 mg/dL (0.2-1.3); Blood Urea Nitrogen 3 mg/dL (7-17); Carbon Dioxide 30 mmol/L (22-30); Chloride 102 mmol/L (98-107); Estimated CRCL calculation 100 ml/min; Estimated Glomerular Filt Rate > 60; Glucose 104 mg/dL (65-110); Potassium 3.9 mmol/L (3.4-5.0); Sodium 137 mmol/L (137-145)
[2024-06-26] MEDS: PIPERACILLN/TAZ 3.375GM/NS50ML 3.375 GM/50 ML BAG IVPB (07:11)
--- NOTE | 2024-06-26 08:37 | P.PNIM_ITS ---
Progress Note: A&P Assessment and Plan (1) Sepsis: Qualifiers: Sepsis acute organ dysfunction status: unspecified Sepsis type: sepsis due to unspecified organism Qualified Code(s): A41.9 - Sepsis, unspecified o rganism Code(s): A41.9 - Sepsis, unspecified organism Status: Acute Assessment and Plan: Meets SIRS criteria: Tachycardic, Febrile, Leukocytosis - lactic acid: 1.3 - suspected source: Cellulitis - blood cultures drawn on 06/23, prelim result shows no growth - Wound Culture drawn on 06/23, prelim result shows Staph A growth in aerobic bottle - Wrist CT: Severe tenosynovitis of the flexor digitorum longus tendon sheaths - 06/26: HR, WBC and Temp all improved/WNL (2) Cellulitis of right wrist: Code(s): L03.113 - Cellulitis of right upper limb Status: Acute Assessment and Plan: - Monitor vital signs, I&Os, neuro status and patient is a fall risk - Monitor serum electrolytes, CBC, cultures, WBC and temp curve - Plastic Surgery following, okay with continuing conservative management at this point - Gentle IV fluids resuscitation - Wound Culture drawn on 06/23, prelim result shows Staph A growth in aerobic bottle - Continue Zosyn and Vanc (3) Tenosynovitis of wrist flexor: Code(s): M65.939 - Unspecified synovitis and tenosynovitis, unspecified forearm Status: Acute Assessment and Plan: - See plan above (4) Tenosynovitis of fingers: Code(s): M65.949 - Unspecified synovitis and tenosynovitis, unspecified hand Status: Acute Assessment and Plan: - See plan above (5) Hypokalemia: Code(s): E87.6 - Hypokalemia Status: Acute Assessment and Plan: - In ED: K 3.3 - Supplement as needed - 06/26: K 3.9 (6) Prediabetes: Code(s): R73.03 - Prediabetes Status: Acute Assessment and Plan: - Previous A1C % = 5.3% - Glucose 95 (7) Psychiatric diagnosis: Code(s): F99 - Mental disorder, not otherwise specified Status: Acute Assessment and Plan: - Continue Duloxetine 60mg daily (8) Hypertension: Code(s): I10 - Essential (primary) hypertension Status: Acute Assessment and Plan: - Chronic, stable - 157/82 - Continue losartan-hydrochlorothiazide Time Spent With Patient Time: Subjective Date/time seen: 06/26/24 08:37 Interval history: 54-year-old female with history of MRSA infection, HTN, dyslipidemia, prediabetes, GERD, SLE, arthritis, fibromyalgia, depression, and anxiety who presented to the emergency department via private vehicle with complaints of right hand and pain swelling.. 06/26/2024 Patient sitting comfortably in bed at time of exam. Denies any CP, SOB, n/v, abdominal pain. Cellulitis continues to improve with conservative management. Swelling still present but also improving. WBC continues to remain WNL. Plan to continue abx, warm compresses, and will adjust NSAID to a higher dose for the remainder of the stay. Review of Systems Review of Systems: 12 systems were reviewed and are negativ e except for as per HPI. Exam Narrative: General: Mildly ill-appearing female sitting up in bed in no distress. Weight: 92.8 kg. BMI: 35.1. HEENT: PERRL, EOMI. Sclera anicteric. Oral mucosa moist. Neck: Supple. Respiratory: Lungs are clear to auscultation bilaterally. Cardiovascular: Regular rate and rhythm with S1-S2. Gastrointestinal: Abdomen is soft, nontender, and nondistended with positive bowel sounds. Skin: Warm and dry. Hand and forearm are wrapped with Aneudy bandage. There is obvious swelling of the palm despite the not being able to remove the dressing. The digits are swollen, most notably the 4th and 5th fingers, but improving. Pain with extension of 4th/5th digits improving. Sensation is intact in the fingers. Extremities: No cyanosis, clubbing, or edema (aside from edema related to the right hand infection). Peripheral pulses palpable though the right radial pulse was not felt as the extremity was wrapped peer Neurological: Alert. No gross focal deficits to casual conversation. Psychiatric: Pleasant and cooperative with appropriate mood and flat affect. Objective Data Vital Signs Vital Signs: Vital Signs - 24 hr 06/25/24 08:43 06/25/24 12:00 06/25/24 13:33 Temperature 97.1 F L Pulse Rate 96 70 70 Respiratory Rate 19 Blood Pressure 134/74 Pulse Oximetry 98 Oxygen Delivery 06/25/24 16:00 06/25/24 20:00 06/25/24 20:00 Temperature Pulse Rate 84 77 Respiratory Rate Blood Pressure Pulse Oximetry Oxygen Delivery Room Air 06/25/24 20:20 06/26/24 00:00 06/26/24 04:00 Temperature 97.7 F Pulse Rate 79 84 89 Respiratory Rate 16 Blood Pressure 128/72 Pulse Oximetry 99 Oxygen Delivery 06/26/24 06:00 Temperature 97.0 F L Pulse Rate 92 Respiratory Rate 18 Blood Pressure 157/82 H Pulse Oximetry 96 Oxygen Delivery Intake/Output Intake/Output: Intake & Output 06/23/24 06/24/24 06/25/24 06/26/24 23:59 23:59 23:59 23:59 Intake Total 5000 3120 550 Output Total 2100 0 Balance 5000 1020 550 Meds/Results Medications: Active Medications Generic Name Dose Route Start Last Admin Trade Name Freq PRN Reason Stop Dose Admin Acetaminophen 650 mg 06/24/24 05:21 Acetaminophen 325 Mg Tablet PO Q6H PRN Mild Pain (1-3) or Fever Hydrocodone Bitart/Acetaminophen 1 tab 06/24/24 05:21 Hydrocodone/Acetaminophen (*Crx) 5-325 Mg Tablet PO Q6H PRN Pain Rated 4-6 Albuterol 1 puff 06/24/24 05:18 Albuterol Sulfate (*Sp) Aerosol 1 Puff INHALATION QID PRN shortness of breath or wheezing Cyclobenzaprine HCl 10 mg 06/24/24 05:18 06/25/24 22:08 Cyclobenzaprine Hcl 10 Mg Tablet PO 10 mg TID PRN Administration muscle spasm Dextrose 12.5 gm 06/24/24 01:38 Dextrose 50% 25 Gm/50 Ml Syringe IV PUSH PRN PRN Hypoglycemia Protocol Divalproex Sodium 1,000 mg 06/24/24 21:00 06/25/24 20:[address] 250 Mg Tabec PO 1,000 mg HS [facility] Administration Divalproex Sodium 500 mg 06/24/24 09:00 06/25/24 08:[address] 250 Mg Tabec PO 500 mg DAILY [facility] Administration Duloxetine HCl 60 mg 06/24/24 09:00 06/25/24 08:24 Duloxetine Hcl 60 Mg Capsule.Dr PO 60 mg DAILY [facility] Administration Glucagon 1 mg 06/24/24 01:38 Glucagon For Inj 1 Mg Vial IM PRN PRN Hypoglycemia Protocol Glucose 15 gm 06/24/24 01:38 Glucose Oral Gel 15 Gm Of Glucse In 37.5 Gm Tube PO PRN PRN Hypoglycemia Protocol Hydrochlorothiazide 12.5 mg 06/24/24 09:00 06/25/24 08:24 Hydrochlorothiazide 12.5 Mg Capsule PO 12.5 mg QAM [facility] Administration Hydroxyzine Pamoate 50 mg 06/24/24 18:00 06/25/24 17:16 Hydroxyzine Pamoate 25 Mg Capsule PO 50 mg QPM [facility] Administration Piperacillin/Tazobactam/Dextrose 3.375 gm in 50 mls @ 100 mls/hr 06/24/24 06:00 06/26/24 07:11 Zosyn 3.375 Gm/Ns 50 Ml IVPB 100 mls/hr Q6H [facility] Administration Dextrose 1,000 mls @ 100 mls/hr 06/24/24 01:38 Dextrose 5% 1,000 Ml IVPB PRN PRN Hypoglycemia Protocol Vancomycin HCl 2,000 mg in 500 mls @ 250 mls/hr 06/25/24 14:00 06/26/24 07:13 Vancomycin 2,000 Mg/Ns 500 Ml IVPB Infused Q12H [facility] Infusion Losartan Potassium 100 mg 06/24/24 09:00 06/25/24 08:24 Losartan Potassium 100 Mg Tablet PO 100 mg DAILY [facility] Administration Morphine Sulfate 4 mg 06/24/24 01:38 06/24/24 12:37 Morphine Sulfate (*Crx) 4 Mg/Ml Inj IV PUSH 4 mg Q2H PRN Administration Pain Rated 7-10 Multivitamins Therapeutic 1 tablet 06/24/24 09:00 06/25/24 08:24 Multivitamins Therapeutic Tab (*Bkc) PO 1 tablet DAILY [facility] Administration Ondansetron HCl 4 mg 06/24/24 01:38 Ondansetron Inj 4 Mg/2 Ml Vial IV PUSH Q4H PRN Nausea Oxycodone/Acetaminophen 1 tablet 06/24/24 05:18 06/26/24 02:16 Oxycodone/Acetaminophen (*Crx) 5-325 Mg Tablet PO 1 tablet Q6H PRN Administration pain 7-10 Pantoprazole Sodium 40 mg 06/24/24 09:00 06/25/24 17:16 Pantoprazole 40 Mg Tablet PO 40 mg BID [facility] Administration Pregabalin 100 mg 06/24/24 09:00 06/25/24 17:16 Pregabalin (*Crx) 50 Mg Capsule PO 100 mg TID [facility] Administration Propranolol HCl 20 mg 06/24/24 09:00 06/25/24 08:25 Propranolol Hcl 20 Mg Tablet PO 20 mg DAILY [facility] Administration Rosuvastatin Calcium 10 mg 06/24/24 09:00 06/25/24 08:24 Rosuvastatin 10 Mg Tablet PO 10 mg DAILY [facility] Administration Vitamin D 1,000 units 06/24/24 09:00 06/25/24 08:23 Cholecalciferol 1,000 Units Tablet PO 1,000 units DAILY [facility] Administration Radiology Results: ITS Impressions Wrist CT 06/24/24 06:27 IMPRESSION: Severe tenosynovitis of the flexor digitorum longus tendon sheaths, as detailed above. Superinfection not excluded. Correlate clinically. Labs Labs: Laboratory Results - last 24 hr 06/25/24 06/26/24 12:57 06:03 WBC 5.2 RBC 3.64 L Hgb 10.4 L Hct 32.8 L MCV 90.1 MCH 28.6 MCHC 31.7 L RDW 12.7 Plt Count 233 MPV 10.6 H Sodium 137 Potassium 3.9 Chloride 102 Carbon Dioxide 30 Anion Gap 5 BUN 3 L Creatinine 0.59 L Estim Creat Clear Calc 100 Estimated GFR > 60 Glucose 104 Calcium 9.0 Total Bilirubin 0.2 AST 18 ALT 15 Alkaline Phosphatase 71 Total Protein 7.0 Albumin 3.3 L Vancomycin Trough 9.5 L Quality VTE Prophylaxis VTE prophylaxis: mechanical ordered
[2024-06-26] MEDS: PANTOPRAZOLE 40 MG TABLET PO ×2 (08:51→17:17)
[2024-06-26] MEDS: CHOLECALCIFEROL 1,000 UNITS TABLET 1000 UNITS PO (08:51)
[2024-06-26] MEDS: hydroCHLOROthiazide 12.5 MG CAPSULE PO (08:51)
[2024-06-26] MEDS: LOSARTAN POTASSIUM 100 MG TABLET PO (08:51)
[2024-06-26] MEDS: ROSUVASTATIN 10 MG TABLET PO (08:51)
[2024-06-26] MEDS: PREGABALIN (*CRX) 50 MG CAPSULE 100 MG PO ×3 (08:51→17:17)
[2024-06-26] MEDS: DIVALPROEX SODIUM DR 250 MG TABEC 500 MG PO (08:51)
[2024-06-26] MEDS: DULoxetine HCL 60 MG CAPSULE.DR PO (08:51)
[2024-06-26] MEDS: MULTIVITAMINS THERAPEUTIC TAB (*BKC) 1 TABLET PO (08:51)
[2024-06-26] MEDS: PROPRANOLOL HCL 20 MG TABLET PO (08:52)
[2024-06-26] MEDS: SULFAMETHOXAZOLE/TRIMETHOPRIM 800/160 MG DS TABLET 2 TAB PO ×2 (13:53→20:37)
[2024-06-26] MEDS: AMOXICILLIN/CLAVULANATE K 875-125 MG TAB 1 TABLET PO ×2 (13:53→20:37)
--- NOTE | 2024-06-26 14:46 | WPDPN ---
Progress Note: A&P Assessment and Plan (1) Cellulitis of right wrist: Code(s): L03.113 - Cellulitis of right upper limb Status: Acute Assessment and Plan: 54yo female s/p right open carpal tunnel revision complicated by wound healing issue with resolving cellulitis but persistent signficiant tenosynovitis reviwed impression and Dx and noting her wbc has improved and seems to be improving in regards to any infection, but still has a ways to go for healing and to improve hand funciton. Plan: 1) dressing changes tid - upon discharge advise patient to return to using alginate dressing on open wound to change bid and continue wrist splint 2) HEP discussed 3) OT to begin edema and ROM 4) agree with plan for discharge in next day or so as abx transitionied to oral 5) has f/u in plastics office scheduled for monday 6) nsaids bid Subjective Date/time seen: 06/26/24 14:46 Review of Systems Review of Systems: pt .seen and examined at bedside. no interval concerns overnight. compliant with elevation and dressing instructions Exam Narrative: Gen: right hand in splint with minimal serous drainage on underlying gauze but 1cm wound is less macerated today. no erythema. edema slgithly improved on dorsum and on palmar side of hand today. minimally tender to light pressure ROM: fds/fdp/edc intact and can almost extend fully with minimal soreness. 3cm lag from palm due to edema and stiffness. Vascular: Warm and well perfused Sensation: Intact to light touch Objective Data Vital Signs Vital Signs: Vital Signs - 24 hr 06/25/24 16:00 06/25/24 20:00 06/25/24 20:00 Temperature Pulse Rate 84 77 Respiratory Rate Blood Pressure Pulse Oximetry Oxygen Delivery Room Air 06/25/24 20:20 06/26/24 00:00 06/26/24 04:00 Temperature 36.5 C Pulse Rate 79 84 89 Respiratory Rate 16 Blood Pressure 128/72 Pulse Oximetry 99 Oxygen Delivery 06/26/24 06:00 06/26/24 08:00 06/26/24 08:52 Temperature 36.1 C L Pulse Rate 92 94 Respiratory Rate 18 Blood Pressure 157/82 H Pulse Oximetry 96 Oxygen Delivery Room Air Intake/Output Intake/Output: Intake & Output 06/23/24 06/24/24 06/25/2406/26/25 23:59 23:59 23:59 23:59 Intake Total 5000 3120 790 Output Total 2100 0 Balance 5000 1020 790 Meds/Results Medications: Active Medications Generic Name Dose Route Start Last Admin Trade Name Freq PRN Reason Stop Dose Admin Acetaminophen 650 mg 06/24/24 05:21 Acetaminophen 325 Mg Tablet PO Q6H PRN Mild Pain (1-3) or Fever Hydrocodone Bitart/Acetaminophen 1 tab 06/24/24 05:21 Hydrocodone/Acetaminophen (*Crx) 5-325 Mg Tablet PO Q6H PRN Pain Rated 4-6 Albuterol 1 puff 06/24/24 05:18 Albuterol Sulfate (*Sp) Aerosol 1 Puff INHALATION QID PRN shortness of breath or wheezing Amoxicillin/Clavulanate Potassium 1 tablet 06/26/24 11:00 06/26/24 13:53 Amoxicillin/Clavulanate K 875-125 Mg Tab PO 1 tablet Q12HR [facility] Administration Cyclobenzaprine HCl 10 mg 06/24/24 05:18 06/25/24 22:08 Cyclobenzaprine Hcl 10 Mg Tablet PO 10 mg TID PRN Administration muscle spasm Dextrose 12.5 gm 06/24/24 01:38 Dextrose 50% 25 Gm/50 Ml Syringe IV PUSH PRN PRN Hypoglycemia Protocol Divalproex Sodium 1,000 mg 06/24/24 21:00 06/25/24 20:[address] 250 Mg Tabec PO 1,000 mg HS [facility] Administration Divalproex Sodium 500 mg 06/24/24 09:00 06/26/24 08:[address] 250 Mg Tabec PO 500 mg DAILY [facility] Administration Duloxetine HCl 60 mg 06/24/24 09:00 06/26/24 08:51 Duloxetine Hcl 60 Mg Capsule.Dr PO 60 mg DAILY [facility] Administration Glucagon 1 mg 06/24/24 01:38 Glucagon For Inj 1 Mg Vial IM PRN PRN Hypoglycemia Protocol Glucose 15 gm 06/24/24 01:38 Glucose Oral Gel 15 Gm Of Glucse In 37.5 Gm Tube PO PRN PRN Hypoglycemia Protocol Hydrochlorothiazide 12.5 mg 06/24/24 09:00 06/26/24 08:51 Hydrochlorothiazide 12.5 Mg Capsule PO 12.5 mg QAM [facility] Administration Hydroxyzine Pamoate 50 mg 06/24/24 18:00 06/25/24 17:16 Hydroxyzine Pamoate 25 Mg Capsule PO 50 mg QPM [facility] Administration Dextrose 1,000 mls @ 100 mls/hr 06/24/24 01:38 Dextrose 5% 1,000 Ml IVPB PRN PRN Hypoglycemia Protocol Losartan Potassium 100 mg 06/24/24 09:00 06/26/24 08:51 Losartan Potassium 100 Mg Tablet PO 100 mg DAILY [facility] Administration Morphine Sulfate 4 mg 06/24/24 01:38 06/24/24 12:37 Morphine Sulfate (*Crx) 4 Mg/Ml Inj IV PUSH 4 mg Q2H PRN Administration Pain Rated 7-10 Multivitamins Therapeutic 1 tablet 06/24/24 09:00 06/26/24 08:51 Multivitamins Therapeutic Tab (*Bkc) PO 1 tablet DAILY [facility] Administration Ondansetron HCl 4 mg 06/24/24 01:38 Ondansetron Inj 4 Mg/2 Ml Vial IV PUSH Q4H PRN Nausea Oxycodone/Acetaminophen 1 tablet 06/24/24 05:18 06/26/24 09:09 Oxycodone/Acetaminophen (*Crx) 5-325 Mg Tablet PO 1 tablet Q6H PRN Administration pain 7-10 Pantoprazole Sodium 40 mg 06/24/24 09:00 06/26/24 08:51 Pantoprazole 40 Mg Tablet PO 40 mg BID [facility] Administration Pregabalin 100 mg 06/24/24 09:00 06/26/24 13:53 Pregabalin (*Crx) 50 Mg Capsule PO 100 mg TID [facility] Administration Propranolol HCl 20 mg 06/24/24 09:00 06/26/24 08:52 Propranolol Hcl 20 Mg Tablet PO 20 mg DAILY [facility] Administration Rosuvastatin Calcium 10 mg 06/24/24 09:00 06/26/24 08:51 Rosuvastatin 10 Mg Tablet PO 10 mg DAILY [facility] Administration Trimethoprim/Sulfamethoxazole 2 tab 06/26/24 11:30 06/26/24 13:53 Sulfamethoxazole/Trimethoprim 800/160 Mg Ds Tablet PO 2 tab Q12HR [facility] Administration Vitamin D 1,000 units 06/24/24 09:00 06/26/24 08:51 Cholecalciferol 1,000 Units Tablet PO 1,000 units DAILY [facility] Administration Radiology Results: ITS Impressions Wrist CT 06/24/24 06:27 IMPRESSION: Severe tenosynovitis of the flexor digitorum longus tendon sheaths, as detailed above. Superinfection not excluded. Correlate clinically. Labs Labs: Laboratory Results - last 24 hr 06/26/24 06:03 WBC 5.2 RBC 3.64 L Hgb 10.4 L Hct 32.8 L MCV 90.1 MCH 28.6 MCHC 31.7 L RDW 12.7 Plt Count 233 MPV 10.6 H Sodium 137 Potassium 3.9 Chloride 102 Carbon Dioxide 30 Anion Gap 5 BUN 3 L Creatinine 0.59 L Estim Creat Clear Calc 100 Estimated GFR > 60 Glucose 104 Calcium 9.0 Total Bilirubin 0.2 AST 18 ALT 15 Alkaline Phosphatase 71 Total Protein 7.0 Albumin 3.3 L
[2024-06-26] MEDS: hydrOXYzine pamoate 25 MG CAPSULE 50 MG PO (17:16)
[2024-06-26] MEDS: DIVALPROEX SODIUM DR 250 MG TABEC 1000 MG PO (20:37)
[2024-06-27] VITALS: PULSE 95
[2024-06-27 04:00] VITALS: PULSE 77
[2024-06-27 05:36] VITALS: BP 150/86; PULSE 82; RESP 16; TEMP 36.7; O2SAT 100
[2024-06-27 08:00] VITALS: PULSE 86
[2024-06-27 08:12] VITALS: PULSE 78
[2024-06-27] MEDS: CHOLECALCIFEROL 1,000 UNITS TABLET 1000 UNITS PO (08:12)
[2024-06-27] MEDS: PANTOPRAZOLE 40 MG TABLET PO (08:12)
[2024-06-27] MEDS: DIVALPROEX SODIUM DR 250 MG TABEC 500 MG PO (08:12)
[2024-06-27] MEDS: DULoxetine HCL 60 MG CAPSULE.DR PO (08:12)
[2024-06-27] MEDS: AMOXICILLIN/CLAVULANATE K 875-125 MG TAB 1 TABLET PO (08:12)
[2024-06-27] MEDS: PROPRANOLOL HCL 20 MG TABLET PO (08:12)
[2024-06-27] MEDS: hydroCHLOROthiazide 12.5 MG CAPSULE PO (08:12)
[2024-06-27] MEDS: SULFAMETHOXAZOLE/TRIMETHOPRIM 800/160 MG DS TABLET 2 TAB PO (08:12)
[2024-06-27] MEDS: MULTIVITAMINS THERAPEUTIC TAB (*BKC) 1 TABLET PO (08:12)
[2024-06-27] MEDS: LOSARTAN POTASSIUM 100 MG TABLET PO (08:12)
[2024-06-27] MEDS: PREGABALIN (*CRX) 50 MG CAPSULE 100 MG PO (08:12)
[2024-06-27] MEDS: ROSUVASTATIN 10 MG TABLET PO (08:12)
[2024-06-27] MEDS: ACETAMINOPHEN 325 MG TABLET 650 MG PO (08:19)
[2024-06-27 08:30] LABS: Basophils Percent Auto 0.3 % (0.2-1.2); Eosinophils Absolute Auto 0.1 K/mm3 (0-0.3); Eosinophils Percent Auto 3.4 % (0-4.4); Hematocrit 34.6 % (37.0-47.0); Hemoglobin 11.1 g/dL (12.0-15.0); Immature Granulocyte Absolute 0.01 K/mm3 (0.00-0.031); Immature Granulocyte Percent A 0.3 % (0-0.5); Lymphocytes Absolute Auto 1.72 K/mm3 (0.9-3.2); Lymphocytes Percent Auto 49.1 % (18.3-44.2); Mean Corpuscular HGB Conc 32.1 g/dl (32-36); Mean Corpuscular Hemoglobin 28.5 pg (26-34); Mean Corpuscular Volume 88.9 fl (80-100); Mean Platelet Volume 9.9 fl (7.4-10.4); Monocytes Absolute Auto 0.3 K/mm3 (0.1-0.6); Neutrophils Absolute Auto 1.4 K/mm3 (1.3-6.7); Neutrophils Percent Auto 38.9 % (45.5-73.1); Platelet Count Result 234 k/mm3 (150-375); Red Blood Count 3.89 M/mm3 (4.2-5.4); Red Cell Distribution Width 12.7 % (11.5-14.5); White Blood Count 3.5 K/mm3 (4.5-10.0)
[2024-06-27 08:40] LABS: Alanine Aminotransferase 14 U/L (6-35); Albumin Level 3.5 g/dL (3.5-5.1); Alkaline Phosphatase 79 U/L (38-126); Anion Gap 8 mmol/L (4-12); Aspartate Amino Transferase 18 U/L (14-36); Bilirubin,Total 0.2 mg/dL (0.2-1.3); Blood Urea Nitrogen 4 mg/dL (7-17); Calcium 9.1 mg/dL (8.4-10.2); Carbon Dioxide 29 mmol/L (22-30); Chloride 104 mmol/L (98-107); Estimated CRCL calculation 83 ml/min; Estimated Glomerular Filt Rate > 60; Glucose 105 mg/dL (65-110); Potassium 4.1 mmol/L (3.4-5.0); Sodium 141 mmol/L (137-145)
--- NOTE | 2024-06-27 09:37 | P.DS_ITS ---
DS: Admitting Diagnosis Discharge Date 06/27/2024 Admitting Diagnosis Right hand pain and swelling, tenosynovitis, Cellulitis of right wrist DS: Discharge Diagnosis Discharge Diagnosis (1) Sepsis: Qualifiers: Sepsis acute organ dysfunction status: unspecified Sepsis type: sepsis due to unspecified organism Qualified Code(s): A41.9 - Sepsis, unspecified organism Code(s): A41.9 - Sepsis, unspecified organism Status: Acute (2) Cellulitis of right wrist: Code(s): L03.113 - Cellulitis of right upper limb Status: Acute (3) Tenosynovitis of wrist flexor: Code(s): M65.939 - Unspecified synovitis and tenosynovitis, unspecified forearm Status: Acute (4) Tenosynovitis of fingers: Code(s): M65.949 - Unspecified synovitis and tenosynovitis, unspecified hand Status: Acute (5) Hypokalemia: Code(s): E87.6 - Hypokalemia Status: Acute (6) Prediabetes: Code(s): R73.03 - Prediabetes Status: Acute (7) Psychiatric diagnosis: Code(s): F99 - Mental disorder, not otherwise specified Status: Acute (8) Hypertension: Code(s): I10 - Essential (primary) hypertension Status: Acute DS: Summary Hospital Course Reason for hospitalization: Right hand pain and swelling Hospital Course: This is a 54-year-old female with history of MRSA infection, hypertension, dyslipidemia, prediabetes, gastroesophageal reflux disease, systemic lupus erythematosus, arthritis, fibromyalgia, depression, and anxiety who presented to the emergency department via private vehicle with complaints of right hand and pain swelling. She had carpal tunnel release on the right in 2018 which was complicated by dehiscence and subsequent MRSA infection. She has had continual issues with scar sensitivity and irritation and she underwent elective surgery for for excision of the right carpal tunnel scar, external and internal median neurolysis, hypothenar fat flap, and adjacent tissue transfer per Dr. Steiner on 05/02/2024. She reports intermittent issues with drainage from the wound since that time and was prescribed clindamycin on 06/15/2024. Three days later she followed up with her surgeon's office at which time the wound appeared to be healing with out drainage or erythema. Since that time she has developed increasing redness, swelling, and green, purulent drainage from the wound. Yesterday she developed a fever and came in for evaluation. She has pretty constant throbbing pain in the hand which is worse with even mild extension of the fingers, especially the right 5th finger. She has been taking acetaminophen with out much benefit. She denies paresthesias, numbness, and vomiting. In the ED: Vital signs on arrival include a temperature of 98.7?, blood pressure 151/86, pulse 116, respiratory 22, SpO2 90% on room air. Labs are significant for WBC count of 12.3, sodium 136, potassium 3.3, glucose 124, CRP 28.4. Right wrist CT showed severe flexor tenosynovitis throughout the wrist measuring approximately 9.7 cm proximal to distal with severe involvement at the level of the carpal tunnel as well. ED provider spoke with the patient's surgeon who recommended starting antibiotics and he will see her in follow-up this morning. Plastic surgery consult regarding cellulitis of the right wrist with associated tenosynovitis. Agree with conservative management with broad-spectrum antib iotics, warm compresses b.i.d. to hand, rest and elevation. Sepsis parameters were initiated regarding elevated WBC, heart rate and elevated temperature. Blood cultures were drawn and showed no growth on preliminary results. Wound cultures were drawn and showed growth of Staph a. Patient continued on Zosyn and vancomycin. Patient continued to improve over hospitalization, with improved swelling, mobility and pain tolerance of the right wrist. Patient is otherwise stable with stable blood work, improving WBC and stable vital signs. Plastic surgery was able to schedule a follow-up appointment in the outpatient setting for this coming Monday. With patient's pain well under control and swelling improving, patient is stable for discharge at this time. Patient given strict return to ED instructions and continue antibiotic coverage for her cellulitis. Patient amenable for discharge at this time. Status at Discharge Functional status at discharge: independent ambulation Overall status at discharge: patient is back to baseline Time Spent with Patient Time attestation: Total time spent providing and/or coordinating discharge services: 30 Exam Narrative: General: Mildly ill-appearing female sitting up in bed in no distress. Weight: 92.8 kg. BMI: 35.1. HEENT: PERRL, EOMI. Sclera anicteric. Oral mucosa moist. Neck: Supple. Respiratory: Lungs are clear to auscultation bilaterally. Cardiovascular: Regular rate and rhythm with S1-S2. Gastrointestinal: Abdomen is soft, nontender, and nondistended with positive bowel sounds. Skin: Warm and dry. Hand and forearm are wrapped with Aneudy bandage. Minimal serous drainage, wound less macerated and no erythema. Swelling continues to improve on dorsum/palmar side of hand. Non tender to palpation. Extremities: No cyanosis, clubbing, or edema (aside from edema related to the right hand infection). Peripheral pulses palpable though the right radial pulse was not felt as the extremity was wrapped peer Neurological: Alert. No gross focal deficits to casual conversation. Psychiatric: Pleasant and cooperative with appropriate mood and flat affect. DS: Data Data Completed and Pending Labs on day of discharge: Labs from last 24 hours 06/27/24 08:24 WBC 3.5 L RBC 3.89 L Hgb 11.1 L Hct 34.6 L MCV 88.9 MCH 28.5 MCHC 32.1 RDW 12.7 Plt Count 234 MPV 9.9 Immature Gran % (Auto) 0.3 Neut % (Auto) 38.9 L Lymph % (Auto) 49.1 H Apache % (Auto) 8.0 Eos % (Auto) 3.4 Baso % (Auto) 0.3 Lymph # (Auto) 1.72 [place] # (Auto) 0.3 Eos # (Auto) 0.1 Baso # (Auto) 0.0 Abs Immat Gran (auto) 0.01 Absolute Neuts (auto) 1.4 Absolute Nucleated RBC 0.000 Nucleated RBC % 0.0 Sodium 141 Potassium 4.1 Chloride 104 Carbon Dioxide 29 Anion Gap 8 BUN 4 L Creatinine 0.72 Estim Creat Clear Calc 83 Estimated GFR > 60 Glucose 105 Calcium 9.1 Total Bilirubin 0.2 AST 18 ALT 14 Alkaline Phosphatase 79 Total Protein 7.0 Albumin 3.5 Preliminary micro results at discharge 06/23/24 23:46 Anaerobic Culture - Preliminary Abscess 06/24/24 00:24 Blood Culture - Preliminary Blood 06/24/24 00:24 Blood Culture - Preliminary Blood Discharge Plan Discharge Attending physician on discharge: Pablo Pickens Consulting providers: Kashif Steiner; Pablo Pickens Discharging Clinician: Pablo Pickens Anticipated Discharge Date/Time: 06/27/24 09:18 Patient Disposition: Home with Home Health Service Activity: as tolerated Diet: as tolerated Discharge Instructions: Per Care Coordination, patient to discharge with [facility] ([phone]) for usp and OT services. Agency will call to arrange initial visit. Discharge disposition: Stable Take medications as prescribed. You will be prescribed Ibuprofen for pain control and Clindamycin, which is to be taken 3 times a day for a total of 10 days. Monitor blood pressures Take caution while standing, rising, or moving Change positions slowly taking a break between each position change If you standing feel dizzy sit back down and take a break Encouraged to continue with yearly vaccinations Return to the emergency department if he developed sudden shortness of breath, chest pain, nausea, vomiting, upset stomach or intractable diarrhea Return to the emergency department if you develop fever greater than 101.5 Follow-up with the primary care physician within 1-2 weeks Thank you for choosing [facility] for your healthcare needs Patient Instructions: Antibiotic Form Patient Language: Citizen Of [place] Stand Alone Forms: General Discharge Information Follow-up/Referrals: Raymond Parmar MD [Primary Care Provider] - Discharge Medications: New clindamycin HCl [Cleocin HCl] 150 mg capsule 450 mg PO TID 10 Days Qty: 90 0RF ibuprofen 800 mg tablet 800 mg PO TID PRN (Reason: pain) 4 Days Qty: 12 0RF Continued omeprazole 40 mg capsule,delayed release(DR/EC) 40 mg PO DAILY Qty: 90 2RF multivitamin Tablet 1 tablet PO DAILY rosuvastatin 10 mg tablet 10 mg PO DAILY Qty: 90 2RF propranolol 20 mg tablet 20 mg PO DAILY Qty: 90 2RF Rx Instructions: IN AM metformin 1,000 mg tablet 1,000 mg PO QAM Qty: 90 3RF hydroxyzine pamoate 25 mg capsule 50 mg PO QPM Qty: 180 3RF Rx Instructions: anxiety losartan-hydrochlorothiazide 100-12.5 mg tablet 1 tablet PO QAM Qty: 90 3RF pregabalin 100 mg capsule 100 mg PO TID Qty: 90 2RF cholecalciferol (vitamin D3) [Vitamin D3] 25 mcg (1,000 unit) capsule 25 mcg PO DAILY cyclobenzaprine 10 mg tablet 10 mg PO TID PRN (Reason: muscle spasm) Rx Instructions: TAKE 1 TABLET BY MOUTH THREE TIMES A DAY NEEDED FOR MUSCLE SPASM divalproex 500 mg tablet,delayed release (DR/EC) 500 mg PO DIRECTED Rx Instructions: TAKE 1 TABLET BY MOUTH IN THE MORNING AND 2 TABLETS AT BEDTIME albuterol sulfate 90 mcg/actuation HFA aerosol inhaler 1 puff inhalation QID PRN (Reason: shortness of breath or wheezing) Rx Instructions: INHALE 1 PUFF BY MOUTH 4 TIMES A DAY NEEDED FOR WHEEZE FOR SHORTNESS OF BREATH duloxetine 60 mg capsule,delayed release(DR/EC) 60 mg PO DAILY Rx Instructions: TAKE 1 CAPSULE BY MOUTH EVERY DAY liraglutide 0.6 mg/0.1 mL (18 mg/3 mL) pen injector 0.6 mg subcut DIRECTED Rx Instructions: INJECT 0.6MG SUBCUTANEOUSLY ONCE DAILY X 7 DAYS THEN 1.2MG DAILY, NOT TO EXCEED 1.8MG/DAY Discontinued Ingrezza 40 mg capsule 40 mg PO DAILY Qty: 90 2RF oxycodone-acetaminophen [Percocet] 5-325 mg tablet 1 tablet PO Q6H PRN (Reason: pain) Qty: 40 0RF meloxicam 7.5 mg tablet 7.5 mg PO BID PRN (Reason: pain (scale score 4-6)) Rx Instructions: TAKE 1 TABLET BY MOUTH TWICE A DAY NEEDED FOR PAIN (SCORE 4-6) No Action oxycodone-acetaminophen 5-325 mg tablet 1 tablet PO Q6H PRN Date of admission: 06/25/24 13:49 Primary Care Provider: Raymond Parmar Admitting Provider: Glen Mayer Attending physician on admission: Pablo Pickens Condition: Stable Quality VTE Prophylaxis VTE prophylaxis: mechanical ordered
== END 2024-06-27 13:30 | disposition home health service (06) | DRG 720 ==
LOC: ANHED 06-24 02:23 → ANH3MED 06-24 02:24
PROVIDERS: General Practice; Admitting Provider Internal Medicine; Emergency Provider Physician Assistant; PCP Emergency Medicine; Visit Provider Physician Assistant
DX: A41.9 Sepsis, unspecified organism (principal); L03.113 Cellulitis of right upper limb; M65.931 Unspecified synovitis and tenosynovitis, right forearm; M65.941 Unspecified synovitis and tenosynovitis, right hand; I10 Essential (primary) hypertension; E87.6 Hypokalemia; E78.5 Hyperlipidemia, unspecified; K21.9 Gastro-esophageal reflux disease without esophagitis; R73.03 Prediabetes; M32.9 Systemic lupus erythematosus, unspecified; M79.7 Fibromyalgia; G62.9 Polyneuropathy, unspecified; G24.01 Drug induced subacute dyskinesia; F17.210 Nicotine dependence, cigarettes, uncomplicated; F31.9 Bipolar disorder, unspecified; F43.10 Post-traumatic stress disorder, unspecified; F41.9 Anxiety disorder, unspecified; Z96.649 Presence of unspecified artificial hip joint
CPT/HCPCS: 36415; 73201; 80053; 80202; 82948; 83605; 85025; 85027; 85610; 85652; 85730; 86140; 87040; 87070; 87075; 87181; 87205; 96361; 96365; 96366; 96367; 96368; 96374; 96375; 96376; 99285; A9270; G0378; G0379; J2270; J2405; J2543; J3370; J7030; Q9967

== ENCOUNTER 2024-07-02 12:09 | Outpatient (CLI) | payer OTHER, SELFPAY ==
--- NOTE | ~2024-07-02 | XR_ITS ---
XR shoulder RT 1V Ordering provider: Raymond Parmar MD History: . M25.511 - Pain in right shoulder . Comparison: None. FINDINGS: BONES: No acute fracture or dislocation. Degenerative changes in the greater tuberosity of the humeru s. JOINT SPACES: The acromioclavicular joint shows moderate osteoarthritic changes. The glenohumeral dacia nt is normal. SOFT TISSUES: Normal. IMPRESSION: No acute osseous abnormality right shoulder. Moderate osteoarthritic changes of the glenohumeral joint. Reviewed, dictated and finalized at location A.
--- OUTSIDE RECORDS SUMMARY | 2024-07-02 12:15 | XMS_ITS | Clinical Summary ---
Author Organization [facility] Address [address] [place] [address] Care Team Providers Care Parking Control Officer Name Role Phone Unknown, Notinfile Primary Care [...] (10/20/2020): Added automatically from request for surgery [id number] Back pain with left-sided sciatica 10/19/2020 Diverticulosis 09/13/2020 Overview (09/13/2020): Added automatically from request for surgery [id number] Family history of colon cancer in mother 021 Overview (09/13/2020): Added automatically from request for surgery [id number] Hx of colonic polyps 09/13/2020 Overview (09/13/2020): Added automatically from request for surgery [id number] Diverticulosis of colon 09/11/2020 Assessment & Plan (09/11/2020 1:48 PM CDT): Colonoscopy and then recap in office Carpal tunnel syndrome of left wrist 06/30/2020 Tardive dyskinesia 04/28/2020 Complex dental caries 11/28/2019 Overview (11/28/2019): Added automatically from request for surgery [id number] Essential hypertension, malignant 11/28/2019 Overview (11/28/2019): Added automatically from request for surgery [id number] Breath, shortness 11/28/2019 Overview (11/28/2019): Added automatically from request for surgery [id number] Severe diabetes mellitus 11/28/2019 Overview (11/28/2019): Added automatically from request for surgery [id number] Posttraumatic stress disorder 11/28/2019 Overview (11/28/2019): Added automatically from request for surgery [id number] Anxiety 11/28/2019 Overview (11/28/2019): Added automatically from request for surgery [id number] Infection following a procedure, subsequent enco unter [...] on file Legal 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 Current interpretive data was last revised 2018. Testing performed by: [facility], [address] [place] [address]., [address] Creatinine Ur 182.5 mg/dL GENEVIEVE FONSECA ([place]ICAN[place]) Comment: Interpretive Data No reference range established. Current interpretive data was last revised 2018. Testing performed by: [facility], [address] [place] [address]., [address] Albumin Creatinine Ratio, Ur 17 1 - 29 mg/g GENEVIEVE FONSECA ([place]) Comment:Testing performed by : [facility], [address] [place] [address]., [address] Urine 11/17/2020 11:0 0 AM CDT 11/17/2020 2:34 PM CDT Carla Harrell NP LAB URINE ORDERABLES Final R esult GENEVIEVE FONSECA ([place]) 1 [facility] Department [place] [address] * (ABNORMAL) Hemoglobin A1c (11/17/2020 10:48 AM [...] and children were not included. (Diabetes Care 31:9298-3585, 2008). The eAG is not equivalent to a fasting glucose. Blood 11/17/2020 10:4 8 AM CDT 11/17/2020 11:20 AM CDT Carla Kellie Harrell PADDED PRODUCTS INSPECTOR TRIMMER LAB BLOOD ORDERABLES Final R esult GENEVIEVE FONSECA ([place]) 1 [facility] [place] [address] * (ABNORMAL) Lipid panel (11/17/2020 10:48 AM [...] CDT 11/17/2020 11:20 AM CDT Carla Harrell PADDED PRODUCTS INSPECTOR TRIMMER LAB BLOOD ORDERABLES Final R esult GENEVIEVE FONSECA ([place]) 1 [facility] Department [place] [address] * COLONOSCOPY (10/22/2020 10:34 AM CDT) Anatomical Region Laterality Modality Other Narrative Procedure Note Yunior Barber MD - 10/22/2020 10:34 AM CDT [facility] Patient Name: Dipika Tran Procedure Date: 10/22/2020 10:34 AM Date of : 1970 Admit Type: Outpatient Age: 50 Gender: Female Attending MD: Yunior Barber M.D. Room: [facility] ENDOSCOPY ROOM 2 Note Status: Finalized [...] scope was passed under direct vision. TheColonoscope [id number] was introduced through the anus and advanced [...] 10:34 AM Procedure Code(s): --- Professional --- 72312, Colonoscopy, flexible; diagnostic, including collection of specimen(s) by brushing or washing, when performed (separateprocedure) Diagnosis Code(s): --- Professional --- K57.30, Diverticulosis of large intestine without perforation orabscess without bleeding K64.9, Unspecified hemorrhoids CPT copyright 2019 [employer]. All rights reserved. The codes documented in this report are preliminary and upon telegraph office telephone clerk reviewmay be revised to meet current compliance requirements. Recognized by the [employer] for promoting quality in endoscopy Yunior Barber MD ENDOSCOPY PROCEDURES Final Re sult from Last 3 Months or Most Recently Relevant to Health Maintenance Insurance [facility] Advance Directives For more information, please contact: [phone] * Full Code (Latest Code Status on File) Date Activated Date Inactivated Comments 11/20/2020 10:55 AM 11/20/2020 4:37 PM * Full Code Date Activated Date Inactivated Comments 10/22/2020 10:43 AM 10/22/2020 4:47 PM * Full Code Date Activated Date Inactivated Comments 10/22/2020 10:43 AM 10/22/2020 10:43 AM * Full Code Date Activated Date Inactivated Comments 10/20/2020 10:09 AM 10/20/2020 2:59 PM Care Teams Parking Control Officer Relationship Specialty Start Date End Date Unknown, Notinfile PCP - General 04/03/23
--- OUTSIDE RECORDS SUMMARY | 2024-07-02 12:15 | XMS_ITS | Continuity of Care Document ---
Author Organization [facility] Address 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, [address], [place], [place], [id number] , [place]. tel:[phone] Referring Provider: Asia Gutiérrez [address], [place], [place], [id number]. tel:[phone] OFFICE/OUTPA TIENT VISIT, [facility], [address], [place], [place], [address], [place] tel:[phone] [facility] asthma1 (chief complaint) alcohol (chief complaint) back apin (chief complaint) arm numnbess1 (chief complaint) AsthmaAlcohol dependence, uncomplicatedChroni c pain syndromeNeuropathy [address], [address], [place], [place], [address] , [place]. tel:[phone] Referring Provider: Asia Gutiérrez [address], [place], [place], [address]. tel:[phone] OFFICE/OUTPA TIENT VISIT, [facility], [address], [place], [place], [address], [place] tel:[phone] [facility] HTN (chief complaint) back pain1 (chief complaint) asthma (chief complaint) HLP (chief complaint) AsthmaLumbagoEssent ial (primary) hypertensionHyperli pidemia 6 [address], [address], [place], [place], [address] , [place]. tel:[phone] Referring Provider: Asia Gutiérrez [address], [place], [place], [address]. tel:[phone] OFFICE/OUTPA TIENT VISIT, [facility], [address], [place], [place], [address], [place] tel:[phone] [facility] headache1 (chief complaint) eye (chief complaint) back pain1 (chief complaint) HeadacheLumbagoEsse ntial (primary) hypertensionConjunc tivitis 6 [address], [address], [place], [place], [address] , [place]. tel:[phone] Referring Provider: Asia Gutiérrez [address], [place], [place], [address]. tel:[phone] OFFICE/OUTPA TIENT VISIT, [facility], [address], [place], [place], [address], [place] tel:[phone] [facility] HTN (chief complaint) back pain (chief complaint) lumbago1 (chief complaint) DM (chief complaint) HyperlipidemiaEssen tial (primary) hypertensionHeadach eLumbago 6 [address]. [address], [address], [place], [place], [address] , [place]. tel:[phone] Referring Provider: Asia Gutiérrez [address], [place], [place], [id number]. tel:[phone] OFFICE/OUTPA TIENT VISIT, [facility], [address], [place], [place], [address], [place] tel:[phone] [facility] Medicine HTN (chief complaint) back pain1 (chief complaint) anxiety1 (chief complaint) Essential (primary) hypertensionChronic pain syndromeDepressionO besity 6 [address]. [address], [address], [place], [place], [address] , [place]. [phone] Referring Provider: Asia Gutiérrez [address], [place], [place], [address]. tel:[phone] OFFICE/OUTPA TIENT VISIT, [facility], [address], [place], [place], [address], [place] tel:[phone] [facility] chronic pain (chief complaint) HTN (chief complaint) HLP (chief complaint) anxiety1 (chief complaint) Chronic pain syndromeHyperlipide miaEssential (primary) hypertensionDepress ion 6 [address]. [address], [address], [place], [place], [address] , [place]. [phone] Referring Provider: Asia Gutiérrez [facility] A, [place], [place], [address]. tel:[phone] OFFICE/OUTPA TIENT VISIT, [facility], [address], [place], [place], [address], [place] tel:[phone] [facility] COPD1 (chief complaint) cough1 (chief complaint) preDM (chief complaint) HLP (chief complaint) bipolar (chief complaint) Metabolic syndromeHyperlipide miaAcute bronchitisChronic pain syndrome 6 [address]. [address], [facility] [address], [place], [place], [address] , [place]. [phone] Referring Provider: Asia Gutiérrez [facility] [address], [place], [place], [address]. tel:[phone] PREV VISIT, NEW, AGE 40-64 [facility], [address] [place], [address], [place] tel:[phone] [facility] PHysical (chief complaint) Encounter for general adult medical exam w abnormal findingsType 2 diabetes mellitus without complicationsEssent ial (primary) hypertensionHyperli pidemia 6 [address]. [address], [facility] [address], [place], [place], [address] , [place]. [phone] Referring Provider: Asia Gutiérrez [facility] A, [place], [place], [address]. tel:[phone] Family History Family Member Type Diagnosis Age [...] Mental Status Date Cognitive Assessment Orientation - Ind[place] ed to time, place, person, situation.
--- OUTSIDE RECORDS SUMMARY | 2024-07-02 12:15 | XMS_ITS | Encounter Summary ---
Author Organization [facility] Address [address] [place] [address] Care Team Providers Care Alteration Specialist Name Role Phone Meme Samuel RN Unavailable Unavailable Omar Delarosa MD, Raymond Wilson Primary Care Prov ider Adelina Trinidad DO Unavailable Encounter Details Date Type Department Care Team (Late st Contact Info) Description 03/07/2022 [facility] Outpatient Visit [facility] Orthopedics - Radiology [address] [place] [address] [place] [address] Document, Scanned Social History Tobacco Use Types Packs/Day Years Used Date Smoking Tobacco: Every Day Cigarettes Smokeless Tobacco: Never Comments:STOP 3 DAYS BEFORE SURGERY Alcohol Use Standard Drinks/Week Comments No 0 (1 standard drink = 0.6 oz pur e alcohol) Comments No Sex and Gender Information Value Date Recorded Sex Assigned at Female 01/11/2022 4:28 AM LENS GRINDER APPRENTICE Legal Sex Female 5:17 PM LENS GRINDER APPRENTICE Gender Identity Female 01/11/2022 4:28 AM LENS GRINDER APPRENTICE Sexual Orientation Straight 01/11/2022 4: 28 AM LENS GRINDER APPRENTICE COVID-19 Exposure Response Date Recorded In the last 10 days, have yo u been in contact with someone who was confirmed or suspected to have Coronavirus/COVID-19? No / Unsure 03/03/2022 1:05 PM LENS GRINDER APPRENTICE documented as of this encounter Functional Status * Is person deaf or have serious hearing difficulty? Answer Date of Assessment Author No 12/31/2021 10:55 AM LENS GRINDER APPRENTICE Deneen Irene RN * Is person blind [...] on filedocumented in this encounter Care Teams Alteration Specialist Relationship Specialty Start [place] [address] [place] [address] PCP - General Family Medicine 02/09/22 Meme Samuel RN Registered Nurse 02/06/17 Adelina Trinidad DO [address] [id number] Rheumatology 07/07/22 documented as of this encounter
--- OUTSIDE RECORDS SUMMARY | 2024-07-02 12:15 | XMS_ITS | Referral Summary ---
Author Organization [facility] Address [address] [place] [address] Care Team Providers Care Multifold Operator Name Role Phone Unknown, Notinfile Primary Care [...] (10/20/2020): Added automatically from request for surgery [id number] Back pain with left-sided sciatica 10/19/2020 Diverticulosis 09/13/2020 Overview (09/13/2020): Added automatically from request for surgery [id number] Family history of colon cancer in mother 021 Overview (09/13/2020): Added automatically from request for surgery [id number] Hx of colonic polyps 09/13/2020 Overview (09/13/2020): Added automatically from request for surgery [id number] Diverticulosis of colon 09/11/2020 Assessment & Plan (09/11/2020 1:48 PM CDT): Colonoscopy and then recap in office Carpal tunnel syndrome of left wrist 06/30/2020 Tardive dyskinesia 04/28/2020 Complex dental caries 11/28/2019 Overview (11/28/2019): Added automatically from request for surgery [id number] Essential hypertension, malignant 11/28/2019 Overview (11/28/2019): Added automatically from request for surgery [id number] Breath, shortness 11/28/2019 Overview (11/28/2019): Added automatically from request for surgery [id number] Severe diabetes mellitus 11/28/2019 Overview (11/28/2019): Added automatically from request for surgery [id number] Posttraumatic stress disorder 11/28/2019 Overview (11/28/2019): Added automatically from request for surgery [id number] Anxiety 11/28/2019 Overview (11/28/2019): Added automatically from request for surgery [id number] Infection following a procedure, subsequent enco unter [...] on file Legal Sex Female 1:20 AM CHIP FRIER Gender Identity Not on file Sexual Orientation [...] 07/03/2021 4:43 PM CDT Shawn Xiao Mary FLAVORING MACHINE OPERATOR LAB BLOOD ORDERABLES Final Result [facility] 1 [facility] [place] [address] * Screening Mammogram Bilateral W Pavan (07/03/2021 [...] was last revised 2018. Testing performed by: [address] [address] Creatinine Ur 182.5 mg/dL [facility] ([place]) Comment: Interpretive Data No reference range established. Current interpretive data was last revised 2018. Testing performed by: [address], [address] Albumin Creatinine Ratio, Ur 17 1 - 29 mg/g [facility] ([place]) Comment:Testing performed by : [facility], [address] [facility], [address] Urine 11/17/2020 11:0 0 AM CDT 11/17/2020 2:34 PM CDT Carla Harrell FLAVORING MACHINE OPERATOR LAB URINE ORDERABLES Final R esult Performing Organization Address [facility] de Phone Number [facility] 1 [facility] [place] [address] * (ABNORMAL) Hemoglobin A1c (11/17/2020 10:48 AM [...] and children were not included. (Diabetes Care 31:3557-6097, 2008). The eAG is not equivalent to a fasting glucose. Blood 11/17/2020 10:4 8 AM CDT 11/17/2020 11:20 AM CDT Carla Harrell NP LAB BLOOD ORDERABLES Final R esult Performing Organization Address [facility] Co de Phone Number [facility] 1 [facility] [place] [address] * (ABNORMAL) Lipid panel (11/17/2020 10:48 AM [...] 2017. Non-HDL Cholesterol 139 mg/dL [facility] Comment: Interpretive Data Ages < or = [...] on 2017. Chol/HDL ratio 5 [facility] Blood 11/17/2020 10:4 8 AM CDT 11/17/2020 11:20 AM CDT Carla Harrell FLAVORING MACHINE OPERATOR LAB BLOOD ORDERABLES Final R esult [facility] 1 [facility] [place] [address] * COLONOSCOPY (10/22/2020 10:34 AM CDT) Anatomical [...] scope was passed under direct vision. TheColonoscope [id number] was introduced through the anus and advanced [...] 10:34 AM Procedure Code(s): --- Professional --- 19499, Colonoscopy, flexible; diagnostic, including collection of specimen(s) by brushing or washing, when performed (separateprocedure) Diagnosis Code(s): --- Professional --- K57.30, Diverticulosis of large intestine without perforation orabscess without bleeding K64.9, Unspecified hemorrhoids CPT copyright 2019 [employer]. All rights reserved. The codes documented in this report are preliminary and upon national service officer reviewmay be revised to meet current compliance requirements. Recognized by the [employer] for promoting quality in endoscopy Yunior Barber MD ENDOSCOPY PROCEDURES Final Re sult from Last 3 Months or Most Recently Relevant to Health Maintenance Insurance [facility] Advance Directives For more information, please contact: [phone] * Full Code (Latest Code Status on File) Date Activated Date Inactivated Comments 11/20/2020 10:55 AM 11/20/2020 4:37 PM * Full Code Date Activated Date Inactivated Comments 10/22/2020 10:43 AM 10/22/2020 4:47 PM * Full Code Date Activated Date Inactivated Comments 10/22/2020 10:43 AM 10/22/2020 10:43 AM * Full Code Date Activated Date Inactivated Comments 10/20/2020 10:09 AM 10/20/2020 2:59 PM Care Teams Multifold Operator Relationship Specialty Start Date End Date Unknown, Notinfile PCP - General 04/03/23
--- OUTSIDE RECORDS SUMMARY | 2024-07-02 12:16 | XMS_ITS | Clinical Summary ---
Author Organization [facility] Address [address] [facility] [place] [address] Care Team Providers Care Cisco Network Architect Name Role Phone Meme Samuel RN Unavailable Unavailable Omar Delarosa MD, [facility] Primary Care Prov ider Adelina Trinidad DO Unavailable Source Comments [facility],non-owned Affiliates and Associated Physician Practices is amultiple site organization consisting of ambulatory clinics and hospital sitesin [place], [place], [place] and [place]. This disclosure is being madepursuant to the Care Everywhere program and may not contain all information available regarding this patient. Last updated 17.[facility] Allergies Active Allergy Reactions Criticality Noted Date [...] naloxone HCl (Narcan) 4 MG/0.1ML nasal spray [place] 1 (one) spray into the nose as [...] Oral DAILY, Reported on 08/25/2022 HYDROcodone-acetam inophen ([place]) 10-325 MG tabletIndications: Chronic pain disorder Take [...] OR BEDTIME 01/28/20 23 Active HYDROcodone-acetam inophen ([place]) 5-325 MG tablet Take 1 (one) tablet [...] Sex Assigned at Female 01/11/2022 4:28 AM BOILER OR ENGINE OPERATOR Legal Sex Female 5:17 PM BOILER OR ENGINE OPERATOR Gender Identity Female 01/11/2022 4:28 AM BOILER OR ENGINE OPERATOR Sexual Orientation Straight 01/11/2022 4: 28 AM BOILER OR ENGINE OPERATOR Last Filed Vital Signs Vital Sign [...] ENDOSCOPY, COLON, DIAGNOSTIC Routine 12/31/2021 10:08 AM BOILER OR ENGINE OPERATOR Abdominal pain, LLQ (left lower quadrant) Constipation, unspecified constipation type HEMOGLOBIN A1C Routine 03/09/2017 6:08 PM BOILER OR ENGINE OPERATOR from Last 3 Months or Most Recently [...] - 34 U/L 11/14/2022 5:30 PM CDT -[facility] Protein Total 7.1 6.4 - 8.3 gm/dL 11/14/2022 5:30 PM CDT -[facility] Albumin 3.8 3.4 - 5.0 gm/dL 11/14/2022 5:30 PM CDT -[facility] Bilirubin Total 0.4 0.2 - 1.2 mg/dL 11/14/2022 5:30 PM CDT -[facility] eGFR by CKD-EPI 84(L) >=90 mL/min/1.7 3 m2 11/14/2022 5:30 PM CDT -[facility] Blood BLOOD SPECIMEN / Unknown Lab Venipuncture / Unknown 11/14/2022 4:59 PM CDT 11/14/2022 5:08 PM CDT us Adeilna Trinidad DO LAB - CHEMISTRY ORDERABLES Final Result [facility] [address] [place] [address] * (ABNORMAL) PROTEIN CREATININE RATIO URINE RANDOM PNL (11/14/2022 4:59 PM CDT) Protein Urine 22.7(H) <11.9 mg/dL 11/14/2022 6:12 PM CDT [facility] Creatinine Urine 310.77 mg/dL 11/14/2022 6:12 PM CDT [facility] Protein/Creatin ine Ratio Urine 0.07 11/14/2022 6:12 PM CDT -[facility] Urine URINE SPECIMEN OBTAINED BY CLEAN CATCH PROCEDURE / Unknown Collection / Unknown 11/14/2022 4:59 PM CDT 11/14/2022 5:53 PM CDT Adelinagail Trinidad DO LAB - URINE CHEMISTRY ORDERABLES Final Result [facility] [address] [place] [address] * HEPATITIS SCREEN ACUTE ([facility]) (07/06/2022 11:34 [...] Resulting Agency Comment Lab Testing performed at: [facility] [address] [facility] [id number] Adelina Vivi DO LAB - CHEMISTRY ORDERABLES Final Result Performing Organization Address City/[facility]/ZIP Co de Phone Number [facility] INSURANCE BILL [address] [place] [address] * ENDOSCOPY, COLON, DIAGNOSTIC (12/31/2021 10:08 AM BOILER OR ENGINE OPERATOR) Report Endoscopy POC _ Patient Name: [...] for surveillance. Procedure Code(s): --- Professional --- 87490, Colonoscopy, flexible; with removal of tumor(s), polyp(s), or other lesion(s) by snare technique --- Technical --- 94611, Colonoscopy, flexible; with removal of tumor(s), polyp(s), or other lesion(s) by snare technique Diagnosis Code(s): --- Professional --- K64.4, Residual hemorrhoidal skin tags K63.5, Polyp of colon R10.12, Left upper quadrant pain --- Technical --- K64.4, Residual hemorrhoidal skin tags K63.5, Polyp of colon R10.12, Left upper quadrant pain CPT copyright 2019 [employer]. All rights reserved. The codes documented in this report are preliminary and upon pet feeder review may be revised to meet current compliance requirements. Dr. Alivia Kline MD Malcom Kline MD 12/31/2021 10:36:33 AM This report has been signed electronically. Number of Addenda: 0 Note Initiated On: 12/31/2021 10:08 AM Procedure Date: 12/31/2021 10:08:52 AM Scope Withdrawal Time: 0 hours 9 minutes 30 seconds [facility] 12/31/2021 10:0 8 AM BOILER OR ENGINE OPERATOR Malcom Kline MD GI PROCEDURE ORDERABLES Edited Result - Final Performing Organization Address City/[facility]/ZIP Co de Phone Number [facility] * HEMOGLOBIN A1C (03/09/2017 6:08 PM BOILER OR ENGINE OPERATOR) Hemoglobin A1c 5.9 4.4 - 6.3 % [facility] Estimated Average Glucose 123 mg/dL [facility] Comment: HbA1c Interpretation: Treatment target values recommended by ADA and other clinical organizations should be used to evaluate metabolic control in patients. Treatment Target Values: Normal : < 5.7% Pre-diabetes: 5.7-6.4% Diabetes: Equal to or greater than 6.5% Reference: [place] [employer] Standards of Care in Diabetes -2014 In patients 70 years and older consider HbA1c target range of 7.0-7.5% Reference: Diabetes Mellitus in Older People: Position Statement on behalf of the International Association of Gerontology and Geriatrics (IAGG), the Diabetes Working Democrat for Older People (EDWPOP), and the International Task Force of Experts in Diabetes. Kofi Marie, et al. J [place] [employer] Directors Association. 2012 Test results diagnostic [...] BLOOD SPECIMEN / Unknown 03/09/2017 6:08 PM BOILER OR ENGINE OPERATOR 03/09/2017 6:26 PM BOILER OR ENGINE OPERATOR us Kenyon Panchal MD LAB - CHEMISTRY ORDERABLES Fin al Result [address] [phone] from Last 3 Months or Most Recently Relevant to Health Maintenance Insurance [facility] SELF PAY NO INSURANCE Member Subscriber Plan / Payer (Ef fective for All Dates) Name:Dipika Llanes Member ID:Not on file Relation to Subscriber:Not on file Name:DIPIKA LLANES Subscriber ID:Not on file (Home) Address: [facility] [place] [address] Payer ID:Not on file Group ID:Not on file Type:Self Pay Address: [place], [place] Care Teams Cisco Network Architect Relationship Specialty [place] [address] [place] [address] PCP - General Family Medicine 02/09/22 Meme Samuel, RN Registered Nurse 02/06/17 Adelina Trinidad DO [address] [facility] [address] [place] [id number] Rheumatology 07/07/22
== END 2024-07-02 12:10 | disposition home or self-care (01) ==
PROVIDERS: PCP Emergency Medicine; Visit Provider Emergency Medicine
DX: M19.011 Primary osteoarthritis, right shoulder (principal)
CPT/HCPCS: 73020

== ENCOUNTER 2024-11-12 09:21 | Outpatient (CLI) | payer OTHER, SELFPAY ==
--- OUTSIDE RECORDS SUMMARY | 2024-05-08 08:00 | XMS_ITS ---
Author Organization [facility] Address [address] [place] [address] Care Team Providers Care Bioinformatics Assistant Name Role Phone Bibi Lopez Primary Care Provider [phone] REASON FOR VISIT follow-up Social History Sex Assigned At : Social History Observation Description Sex Assigned At Female Encounters Encounter Location Date Provider Diagnosis [facility] [address] [address] 05/08/2024 Bibi Lopez Plan Of Treatment Next Appt Details Provider Name:Bibi gordon, 11/20/2024 02:40:00 PM, [address] [place], [address], Progress Notes * Dipika TRANDOB:[birth year] (54 yo F)Acc No.[id number]:05/08/2024 UNLOCKED PROGRESS NOTE Patient: Dipika COVARRUBIAS Provider: TOMÁS Fernández :1970 A ge:54 Y S ex:Female Date:05/08/2024 Address:[facility] Subjective: * Chief Complaints: * 1 . Follow-up. * Medical History: Objective: * Vitals: Assessment: Plan: * Treatment: * * Electronic signature of Ebony Lopez on 11/12/2024 at 10:00 AM CDT Sign off status: Pending * Provider: TOMÁS Fernández Date: 0 05/08/2024 Generated for Errol choi/Papito/eTransmitting on: 0 11/12/2024 10:00 AM CDT
--- OUTSIDE RECORDS SUMMARY | 2024-07-24 06:20 | XMS_ITS ---
Author Organization [facility] Address [address] [place] [address] Care Team Providers Care Accounting Manager Controller Name Role Phone Bibi Lopez Primary Care Provider [phone] REASON FOR VISIT 2 Month Psych F/U & Med Refill Social History Sex Assigned At : Social History Observation Description Sex Assigned At Female Encounters Encounter Location Date Provider Diagnosis [facility] [address] [place] [phone] 07/24/2024 Bibi Lopez Plan Of Treatment Next Appt Details Provider Name:Bibi gordon, 11/20/2024 02:40:00 PM, [address], [place], [address], Progress Notes * Gen PARKINSONrahelDOB:[birth year] (54 yo F)Acc No.[id number]:07/24/2024 UNLOCKED PROGRESS NOTE Patient: Dipika COVARRUBIAS Provider: TOMÁS Fernández :1970 A ge:54 Y S ex:Female Date:07/24/2024 [facility] [place] Subjective: * Chief Complaints: * 1 . 2 Month Psych F/U & Med Refill. * Medical History: Objective: * Vitals: Assessment: Plan: * Treatment: * * Electronic signature of Ebony Lopez on 11/12/2024 at 09:59 AM CDT Sign off status: Pending * Provider: TOMÁS Fernández Date: 0 07/24/2024 Generated for Errol choi/Papito/Bassem on: 0 11/12/2024 09:59 AM CDT
--- OUTSIDE RECORDS SUMMARY | 2024-11-12 10:00 | XMS_ITS | Clinical Summary ---
Author Organization [facility] Address [address] [place] [address] Care Team Providers Care Risk Control Manager Name Role Phone Unknown, Notinfile Primary Care [...] (10/20/2020): Added automatically from request for surgery [id number] Back pain with left-sided sciatica 10/19/2020 Diverticulosis 09/13/2020 Overview (09/13/2020): Added automatically from request for surgery [id number] Family history of colon cancer in mother 021 Overview (09/13/2020): Added automatically from request for surgery [id number] Hx of colonic polyps 09/13/2020 Overview (09/13/2020): Added automatically from request for surgery [id number] Diverticulosis of colon 09/11/2020 Assessment & Plan (09/11/2020 1:48 PM CDT): Colonoscopy and then recap in office Carpal tunnel syndrome of left wrist 06/30/2020 Tardive dyskinesia 04/28/2020 Complex dental caries 11/28/2019 Overview (11/28/2019): Added automatically from request for surgery [id number] Essential hypertension, malignant 11/28/2019 Overview (11/28/2019): Added automatically from request for surgery [id number] Breath, shortness 11/28/2019 Overview (11/28/2019): Added automatically from request for surgery [id number] Severe diabetes mellitus 11/28/2019 Overview (11/28/2019): Added automatically from request for surgery [id number] Posttraumatic stress disorder 11/28/2019 Overview (11/28/2019): Added automatically from request for surgery [id number] Anxiety 11/28/2019 Overview (11/28/2019): Added automatically from request for surgery [id number] Infection following a procedure, subsequent enco unter [...] 2001 Neuropathy Bipolar 1 disorder (HCC) Schizophrenia History of section 5 C- Sections Obesity [...] on file Legal Sex Female 1:20 AM PANEL LAMINATOR Gender Identity Not on file Sexual Orientation [...] 1:14 PM CDT Height 165.1 cm (5' 5) 07/03/2021 1:14 PM CDT Body Mass Index 39.77 07/03/2021 1:14 PM CDT Plan of Treatment Not on file Insurance [facility] Advance Directives For more information, please contact: [phone] * Full Code (Latest Code Status on File) Date Activated Date Inactivated Comments 11/20/2020 10:55 AM 11/20/2020 4:37 PM * Full Code Date Activated Date Inactivated Comments 10/22/2020 10:43 AM 10/22/2020 4:47 PM * Full Code Date Activated Date Inactivated Comments 10/22/2020 10:43 AM 10/22/2020 10:43 AM * Full Code Date Activated Date Inactivated Comments 10/20/2020 10:09 AM 10/20/2020 2:59 PM Care Teams Risk Control Manager Relationship Specialty Start Date End Date Unknown, Notinfile PCP - General 04/03/23
--- OUTSIDE RECORDS SUMMARY | 2024-11-12 10:00 | XMS_ITS | Clinical Summary ---
Author Organization [facility] Address [address] [place] [address] Care Team Providers Care Corporate Legal Manager Name Role Phone Meme Samuel RN Unavailable Unavailable Omar Delarosa MD, [facility] Primary Care Prov ider Adelina Trinidad DO Unavailable Source Comments [facility],non-owned Affiliates and Associated Physician Practices is amultiple site organization consisting of ambulatory clinics and hospital sitesin [place], [place], [place] and [place]. This disclosure is being madepursuant to the Care Everywhere program and may not contain all information available regarding this patient. Last updated 17.[facility] Allergies Active Allergy Reactions Criticality Noted Date [...] naloxone HCl (Narcan) 4 MG/0.1ML nasal spray [place] 1 (one) spray into the nose as [...] Oral DAILY, Reported on 08/25/2022 HYDROcodone-acetam inophen ([place]) 10-325 MG tabletIndications: Chronic pain disorder Take [...] OR BEDTIME 01/28/20 23 Active HYDROcodone-acetam inophen ([place]) 5-325 MG tablet Take 1 (one) tablet [...] Sex Assigned at Female 01/11/2022 4:28 AM FRENCH PROFESSOR Legal Sex Female 5:17 PM FRENCH PROFESSOR Gender Identity Female 01/11/2022 4:28 AM FRENCH PROFESSOR Sexual Orientation Straight 01/11/2022 4: 28 AM FRENCH PROFESSOR Last Filed Vital Signs Vital Sign Reading [...] 8:30 AM CDT Height 165.1 cm (5' 5) 09/06/2022 9:09 AM CDT Body Mass Index 35.45 09/06/2022 9:09 AM CDT Plan of Treatment Health Maintenance Due Date Last Done Comments COLOGUARD (AGES 45-75) - COLON CA SCREENING 1968 CT COLONOGRAPHY - COLON CA SCREENING 1968 FIT - COLON CA SCREENING 1968 FLEX SIG - COLON CA SCREENING 1968 MAMMOGRAM 1968 HIV SCREENING 01/15/1983 DTAP/TDAP/TD VACCINES (1 - Tdap) 01/15/1987 HEPATITIS B VACCINE (1 of 3 - 19+ 3-dose series) 01/15/1987 PNEUMOCOCCAL VACCINE 50+ (1 of 2 - PCV) 01/15/1987 PAP SMEAR 01/15/1989 ZOSTER VACCINE (1 of 2) 01/15/2018 DIABETES RETINOPATHY SCREENING 01/01/2020 DIABETES-FOOT EXAM WITH MONOFILAMENT 01/01/2020 DIABETES-HGB A1C 01/01/2020 03/09/2017 COLON MONITORING 01/04/2023 01/04/2022, 12/2021, 12/31/2021 Colorectal Cancer Screening 01/04/2023 DIABETES-SERUM CREATININE 11/15/20232022, 07/06/2022, 12/17/2021, Additional history exists DEPRESSION SCREENING 02/21/2024 DIABETES - URINE PROTEIN SCREENING 02/21/2024 11/14/2022, 07/06/2022 COVID-19 VACCINE (1 - season) 2024 INFLUENZA VACCINE (#1) 2024 COLONOSCOPY - COLON CA SCREENING 01/05/2032 [...] ENDOSCOPY, COLON, DIAGNOSTIC Routine 12/31/2021 10:08 AM FRENCH PROFESSOR Abdominal pain, LLQ (left lower quadrant) Constipation, unspecified constipation type HEMOGLOBIN A1C Routine 03/09/2017 6:08 PM FRENCH PROFESSOR from Last 3 Months or Most Recently [...] - 34 U/L 11/14/2022 5:30 PM CDT -[facility] Protein Total 7.1 6.4 - 8.3 gm/dL 11/14/2022 5:30 PM CDT -[facility] Albumin 3.8 3.4 - 5.0 gm/dL 11/14/2022 5:30 PM CDT -[facility] Bilirubin Total 0.4 0.2 - 1.2 mg/dL 11/14/2022 5:30 PM CDT -[facility] eGFR by CKD-EPI 84(L) >=90 mL/min/1.7 3 m2 11/14/2022 5:30 PM CDT -[facility] Blood BLOOD SPECIMEN / Unknown Lab Venipuncture / Unknown 11/14/2022 4:59 PM CDT 11/14/2022 5:08 PM CDT us Adelina Trinidad DO LAB - CHEMISTRY ORDERABLES Final Result [facility] [address] [place] [address] * (ABNORMAL) PROTEIN CREATININE RATIO URINE RANDOM PNL (11/14/2022 4:59 PM CDT) Protein Urine 22.7(H) <11.9 mg/dL 11/14/2022 6:12 PM CDT [facility] Creatinine Urine 310.77 mg/dL 11/14/2022 6:12 PM CDT [facility] Protein/Creatin ine Ratio Urine 0.07 11/14/2022 6:12 PM CDT -[facility] Urine URINE SPECIMEN OBTAINED BY CLEAN CATCH PROCEDURE / Unknown Collection / Unknown 11/14/2022 4:59 PM CDT 11/14/2022 5:53 PM CDT Adelinagail Trinidad DO LAB - URINE CHEMISTRY ORDERABLES Final Result [facility] [address] [place] [id number] * HEPATITIS SCREEN ACUTE ([facility]) (07/06/2022 11:34 [...] performed at: [facility] [address] [facility] [facility] [id number] Adelina Vivi DO LAB - CHEMISTRY ORDERABLES Final Result Performing Organization Address City/[facility]/ZIP Co de Phone Number [facility] INSURANCE BILL [address] [place] [address] * ENDOSCOPY, COLON, DIAGNOSTIC (12/31/2021 10:08 AM FRENCH PROFESSOR) Report Endoscopy POC _ Patient Name: Dipika [...] for surveillance. Procedure Code(s): --- Professional --- 59598, Colonoscopy, flexible; with removal of tumor(s), polyp(s), or other lesion(s) by snare technique --- Technical --- 64912, Colonoscopy, flexible; with removal of tumor(s), polyp(s), or other lesion(s) by snare technique Diagnosis Code(s): --- Professional --- K64.4, Residual hemorrhoidal skin tags K63.5, Polyp of colon R10.12, Left upper quadrant pain --- Technical --- K64.4, Residual hemorrhoidal skin tags K63.5, Polyp of colon R10.12, Left upper quadrant pain CPT copyright 2019 [employer] [employer]. All rights reserved. The codes documented in this report are preliminary and upon lead teacher review may be revised to meet current compliance requirements. Dr. Alivia Kline MD Malcom Kline MD 12/31/2021 10:36:33 AM This report has been signed electronically. Number of Addenda: 0 Note Initiated On: 12/31/2021 10:08 AM Procedure Date: 12/31/2021 10:08:52 AM Scope Withdrawal Time: 0 hours 9 minutes 30 seconds [facility] 12/31/2021 10:0 8 AM FRENCH PROFESSOR Malcom Kline MD GI PROCEDURE ORDERABLES Edited Result - Final Performing Organization Address City/[facility]/ZIP Co de Phone Number [facility]OS[facility] * HEMOGLOBIN A1C (03/09/2017 6:08 PM FRENCH PROFESSOR) Hemoglobin A1c 5.9 4.4 - 6.3 % [facility] Estimated Average Glucose 123 mg/dL [facility] Comment: HbA1c Interpretation: Treatment target values recommended by ADA and other clinical organizations should be used to evaluate metabolic control in patients. Treatment Target Values: Normal : < 5.7% Pre-diabetes: 5.7-6.4% Diabetes: Equal to or greater than 6.5% Reference: [place] [employer] Standards of Care in Diabetes -2014 In patients 70 years and older consider HbA1c target range of 7.0-7.5% Reference: Diabetes Mellitus in Older People: Position Statement on behalf of the International Association of Gerontology and Geriatrics (IAGG), the Diabetes Working Alliance Party for Older People (EDWPOP), and the International Task Force of Experts in Diabetes. Kofi Marie, et al. J [place] [employer] Association. 2012 Test results diagnostic [...] BLOOD SPECIMEN / Unknown 03/09/2017 6:08 PM FRENCH PROFESSOR 03/09/2017 6:26 PM FRENCH PROFESSOR us Kenyon Panchal MD LAB - CHEMISTRY ORDERABLES Fin al Result [address] [phone] from Last 3 Months or Most Recently Relevant to Health Maintenance Insurance [facility] SELF PAY NO INSURANCE Member Subscriber Plan / Payer (Ef fective for All Dates) Name:Dipika Llanes Member ID:Not on file Relation to Subscriber:Not on file Name:DIPIKA LLANES Subscriber ID:Not on file (Home) Address: [facility] [address] Payer ID:Not on file Group ID:Not on file Type:Self Pay Address: [place], [place] Care Teams Corporate Legal Manager Relationship Specialty Start Date End Date Raymond Nelson Jr., [place] [address] [address] PCP - General Family Medicine 02/09/22 Meme Samuel, RN Registered Nurse 02/06/17 Adelina Trinidad DO [address] [facility] [address] [place] [id number] Rheumatology 07/07/22
--- OUTSIDE RECORDS SUMMARY | 2024-11-12 10:00 | XMS_ITS | Encounter Summary ---
Author Organization [facility] Address [address] [place] [address] Care Team Providers Care Boat Joiner Name Role Phone Meme Samuel RN Unavailable Unavailable Omar Delarosa MD, [facility] [place] Primary Care Prov ider Adelina Trinidad DO Unavailable Encounter Details Date Type Department Care Team (Late st Contact Info) Description 03/07/2022 [facility] Outpatient Visit [facility] Orthopedics - Radiology [address] [place] [address] [place] [address] Document, Scanned Social History Tobacco Use Types Packs/Day Years Used Date Smoking Tobacco: Every Day Cigarettes Smokeless Tobacco: Never Comments:STOP 3 DAYS BEFORE SURGERY Alcohol Use Standard Drinks/Week Comments No 0 (1 standard drink = 0.6 oz pur e alcohol) Comments No Sex and Gender Information Value Date Recorded Sex Assigned at Female 01/11/2022 4:28 AM AWNING FINISHER Legal Sex Female 5:17 PM AWNING FINISHER Gender Identity Female 01/11/2022 4:28 AM AWNING FINISHER Sexual Orientation Straight 01/11/2022 4: 28 AM AWNING FINISHER COVID-19 Exposure Response Date Recorded In the last 10 days, have yo u been in contact with someone who was confirmed or suspected to have Coronavirus/COVID-19? No / Unsure 03/03/2022 1:05 PM AWNING FINISHER documented as of this encounter Functional Status * Is person deaf or have serious hearing difficulty? Answer Date of Assessment Author No 12/31/2021 10:55 AM AWNING FINISHER Deneen Irene RN * Is person blind [...] on filedocumented in this encounter Care Teams Boat Joiner Relationship Specialty [place] [address] [place] [address] PCP - General Family Medicine 02/09/22 Meme Samuel, RN Registered Nurse 02/06/17 Adelina Trinidad DO [address] [phone] Rheumatology 07/07/22 documented as of this encounter
--- OUTSIDE RECORDS SUMMARY | 2024-11-12 10:00 | XMS_ITS | Patient Health Record ---
Author Organization [facility] Address [address] [place] [address] Care Team Providers Care Medical Assistant Instructor Name Role Phone Bibi Lopez Primary Care Provider Allergies Allergen (clinical drug ingredient) Drug/Non Drug Allergy documented on EMR Reaction Allergy Type Onset Date Status meloxicam Mobic Unknown Drug Allergy Active Reason For Referral No Information Medications Medication SIG (Take, Route, Frequency, Duration) Notes Start Date End Date Status Ingrezza 40 MG 1 capsule Orally Onc e a day; Duration: 30 days Active Lurasidone HCl 20 MG 1 tablet in the evening with food Orally Once a day; Duration: 30 days 11/06/2024 Active Hydroxychloroquine Sulfate 200 MG 1 tablet Orally once a day Not-Taking metFORMIN HCl 1000 MG 1 tablet with a me al Orally Once a day Active Meloxicam 7.5 MG 1 tablet Orally twic e a day Active Topiramate 200 MG 1 tablet Orally Once a day Active Lyrica 100 MG 1 capsule Orally three times a day Active Vitamin D (Ergocalciferol) 1.25 MG (69264 UT) 1 capsule Orally weekly Active Depakote 500 MG 1 tablet Orally thre e times a day; Duration: 30 days Active Omeprazole 40 MG 1 capsule 1/2 to 1 hour before morning meal Orally Once a day Active Cymbalta 60 MG 1 capsule Orally Onc e a day; Duration: 30 days Active Losartan Potassium-HCTZ 100-12.5 MG 1 tablet Orally Once a day Active oxyCODONE-Acetaminophen 5-325 MG 1 tablet as needed Orally twice a day Active Aspirin 81 MG 1 tablet Orally Once a day Active Victoza 18 MG/3ML as directed Subcutaneous Active Propranolol HCl 40 MG 1 tablet Orally Tw ice a day Active Albuterol Sulfate HFA 108 (90 Base) MCG/ACT 1 puff as needed Inhalation four times a day Active Simvastatin 40 MG 1 [...] Risk Notes Problem Schizoaffective disorder, bipolar type (50159497) Schizoaffective disorder, bipolar type (F25.0) Active confirmed Problem Insomnia disorder related to another mental disorder (79289877) Insomnia due to other mental disorder (F51.05) Active confirmed Problem Anxiety disorder (492620363) Anxiety disorder (F41.9) Active confirmed Problem Mild recurrent major depression (72371291) Depression, major, recurrent, mild (F33.0) Active confirmed Problem Posttraumatic stress disorder (28291150) Post traumatic stress disorder (PTSD) (F43.10) Active confirmed Problem Smoker (17448157) Smoker (F17.200) Active confi rmed Vital Signs Heart Rate 73 /min 08/07/2024 Respiratory Rate 16 /min 08/07/2024 Blood pressure diastolic 63 mm Hg 08/07/2024 Oximetry 91 % 08/07/2024 Height 65 in 08/07/2024 Blood pressure systolic 91 mm Hg 08/07/2024 Weight 198 lbs 08/07/2024 BMI 32.95 kg/m2 08/07/2024 Encounters Encounter Location Date Provider Diagnosis [address] [address] 05/22/2024 Bibi Lopez Schizoaffective disorder, bipolar type F25.0 ; Anxiety disorder F41.9 ; Post traumatic stress disorder (PTSD) F43.10 ; Depression, major, recurrent, mild F33.0 ; Insomnia due to other mental disorder F51.05 and Smoker F17.[address] [address] 08/07/2024 Bibi Noeevan Schizoaffective disorder, bipolar type F25.0 ; Insomnia due to other mental disorder F51.05 ; Anxiety disorder F41.9 ; Depression, major, recurrent, mild F33.0 ; Post traumatic stress disorder (PTSD) F43.10 and Tardive dyskinesia G24.01 [facility] [address] [place] [address] 11/06/2024 Bibi Lopez Schizoaffective disorder, bipolar type F25.0 ; Insomnia due to other mental disorder F51.05 ; Anxiety disorder F41.9 ; Depression, major, recurrent, mild F33.0 ; Post traumatic stress disorder (PTSD) F43.10 ; Tardive dyskinesia G24.01 and Smoker F17.[address] [address] 05/06/[address] [address] 05/06/[address] [address] 05/08/2024 Bibi Lopez [place] [address], [place] [address] 08/05/2024 [place] [address] [place] [address] 08/12/2024 Bibi Lopez Assessments Encounter Date Diagnosis (ICD Code) Assessment [...] to avoid triggers and reduce anxious states 08/07/2024 Schizoaffective disorder, bipolar type (ICD-10 - F25.0) Pt on depakote- labs orderd. Cont current meds Cont Depakote/Valproic Acid. Take as prescribed. Purpose - promote mood stability. Reviewed side effects, including sedation, dose-dependent tremor, dizziness, ataxia, asthenia, headache abdominal pain, GI distress, and alopecia. Can cause liver or pancreas dysfunction/failure . 08/07/2024 Insomnia due to other mental disorder (ICD-10 - F51.05) cont current meds Sleep Hygiene- Go to bed and get up at the same time every day. Keep bedroom quiet, relaxing, and at a cool temperature. Turning off electronic devices at least 30 minutes before bedtime. Avoiding large meals and alcohol before bedtime. Avoiding caffeine in the afternoon or evening. Exercising regularly and maintaining a healthy diet. Utilize bed for sleep Encourage patient to have all electronics often hour before bed. Encourage a bedtime routine. 11/06/2024 Schizoaffective disorder, bipolar type (ICD-10 - F25.0) continue [place] or noted Started Latuda - pt aware she needs to eat a meal/snack that contain about 350 cals Discussed medication in length including side effects, benefits, risks. All questions answered. Ordered labs last visit - did not get them done. Pt aware she needs them and that a letter will be sent Cont Depakote/Valproic Acid. Take as prescribed. Purpose - promote mood stability. Reviewed side effects, including sedation, dose-dependent tremor, dizziness, ataxia, asthenia, headache abdominal pain, GI distress, and alopecia. Rarely can cause liver or pancreas dysfunction/failure . 11/06/2024 Insomnia due to other mental disorder (ICD-10 - F51.05) Sleep Hygiene- Go to bed and get up at the same time every day. Keep bedroom quiet, relaxing, and at a cool temperature. Turning off electronic devices at least 30 minutes before bedtime. Avoiding large meals and alcohol before bedtime. Avoiding caffeine in the afternoon or evening. Exercising regularly and maintaining a healthy diet. Utilize bed for sleep Encourage patient to have all electronics often hour before bed. Encourage a bedtime routine. 11/06/2024 Anxiety disorder (ICD-10 - F41.9) Discussed anxiety and ways to avoid triggers and reduce anxious states 05/22/2024 Post traumatic stress disorder (PTSD) (ICD-10 - F43.10) Cont current meds- managed well at this time 08/07/2024 Anxiety disorder (ICD-10 - F41.9) Discussed anxiety and ways to avoid triggers and reduce anxious states cont current meds Dr. Parmar gives rx for hydroxyzine 08/07/2024 Depression, major, recurrent, mild (ICD-10 - F33.0) cont current meds Takle medications as prescribed. Discussed possible SEs, risks, and benefits. Reviewed black box warning for possible SI. Continue with regular exercise and a healthy, balanced diet. Follow up with the counselor as discussed. Pt advised to call or seek immediate medical attention if they develop any new or worsening symptoms. Follow up in 1 month for recheck, sooner if needed. Patient/caregiver instructed to call or seek medical attention if any new or worsening symptoms. Red flag symptoms/indication s for trip to ER reviewed. Patient/caregiver voiced understanding and agreement with the above. 05/22/2024 Depression, major, recurrent, mild (ICD-10 - [...] or having homicidal ideations. Pt voiced understanding. 11/06/2024 Depression, major, recurrent, mild (ICD-10 - F33.0) Pt aware to call 911 and or [phone] if having thoughts of suicide plan or intent or having homicidal ideations. Pt voiced understanding. continue current meds Appears stable at this time No side effects reported or noted 11/06/2024 Post traumatic stress disorder (PTSD) (ICD-10 - F43.10) Appears stable at this time continue current meds 05/22/2024 Insomnia due to other mental disorder (ICD-10 - F51.05) Cont current meds- managed well at this time 08/07/2024 Post traumatic stress disorder (PTSD) (ICD-10 - F43.10) 08/07/2024 Tardive dyskinesia (ICD-10 - G24.01) 11/06/2024 Tardive dyskinesia (ICD-10 - G24.01) continue current meds Appears stable at this time No side effects reported or noted 05/22/2024 Smoker (ICD-10 - F17.200) Can call [phone] , you can speak confidentially with a highly trained quit flag football coach. ( ) Not interested in quitting at this time despite benefits 11/06/2024 Smoker (ICD-10 - F17.200) Patient counseled on the risks of smoking, and benefits of quitting Advised patient to quit smoking negative health effects of tobacco dependency discussed, cessation encouraged Plan Of Treatment Next Appt Details Provider Name:Bibi Barreto , 11/20/2024 02:40:00 PM, [address] [place], [address], Insurance Providers Payer Name Payer Address Payer Phone Subscriber Number Group Number Insured Name Patient Relationship to Insured Coverage Start Date Coverage End Date [employer] [address] [place] [phone] [id number] Dipika Tran Self - patient is the insured 5 [employer] [address] [place] [phone] [id number] Dipika Tran Self - patient is the insured 5 Medical (General) History Surgical History Surgery Date(Month/Year) left hip replacement Right hand repair
[2024-11-12 10:22] LABS: Alanine Aminotransferase 30 U/L (6-35); Albumin Level 4.1 g/dL (3.5-5.1); Alkaline Phosphatase 83 U/L (38-126); Anion Gap 8 mmol/L (4-12); Aspartate Amino Transferase 34 U/L (14-36); Bilirubin,Total 0.4 mg/dL (0.2-1.3); Blood Urea Nitrogen 11 mg/dL (7-17); Calcium 9.2 mg/dL (8.4-10.2); Carbon Dioxide 28 mmol/L (22-30); Chloride 103 mmol/L (98-107); Cholesterol 147 mg/dL (0-200); Estimated Glomerular Filt Rate > 60; Glucose 87 mg/dL (65-110); HDL Direct 39 mg/dL; Potassium 4.1 mmol/L (3.4-5.0); Sodium 139 mmol/L (137-145); Total Protein 7.7 g/dL (6.3-8.2); Triglycerides 128 mg/dL (<150)
== END 2024-11-12 09:22 | disposition home or self-care (01) ==
LOC: ANHLAB 09:22
PROVIDERS: PCP Emergency Medicine; Visit Provider Emergency Medicine
DX: E78.5 Hyperlipidemia, unspecified (principal); E55.9 Vitamin D deficiency, unspecified
CPT/HCPCS: 36415; 80053; 80061; 82306